=== PATIENT | male | born 1940 | race Caucasian/White ===

== ENCOUNTER → 2019-10-22 07:48 | Outpatient (BNVA) | payer MEDICARE, OTHER, SELFPAY | PROVIDERS: Family Provider Family Medicine; PCP Family Medicine; Referring Provider Family Medicine; Visit Provider Specialist | DX: R20.0 Anesthesia of skin (principal); R20.2 Paresthesia of skin; G62.9 Polyneuropathy, unspecified; Z87.891 Personal history of nicotine dependence | CPT/HCPCS: 95909 ==

== ENCOUNTER 2020-02-17 14:14 | Emergency (ER) | payer MEDICARE, OTHER, SELFPAY ==
[2020-02-17 14:25] VITALS: BP 114/61; PULSE 69; RESP 18; TEMP 36.7; O2SAT 95; BMI 22.0
--- NOTE | 2020-02-17 14:41 | XRR_ITS ---
PROCEDURE INFORMATION: Exam: XR Chest, 1 View Exam date and time: 02/17/2020 2:54 PM Age: 79 years old Clinical indication: Shortness of breath; Type not specified; Patient HX: Weakness, dizzy, chest pain; Additional info: SOB TECHNIQUE: Imaging protocol: XR of the chest Views: 1 view. COMPARISON: CR Chest 1 [place] [id number] 11/13/2018 12:43 PM FINDINGS: Lungs: Unremarkable. No consolidation. Pleural space: Unremarkable. No pleural effusion. No pneumothorax. Heart/Mediastinum: Unremarkable. No cardiomegaly. Bones/joints: Unremarkable. XR/XR chest 1V portable [id number] IMPRESSION: No acute findings.
--- NOTE | 2020-02-17 14:41 | CT_ITS ---
WS: [id number] CT HEAD TECHNIQUE: Noncontrast CT of the head obtained from the skullbase to the vertex. CLINICAL INFORMATION: sob COMPARISON: 5 28,019 DLP: 854.[address] scans at [facility] use at least one of these dose optimization techniques: automat ed exposure control; mA and/or kV adjustment per patient size (includes targeted exams where dose is matched to clinical indication); or iterative reconstruction. FINDINGS: No evidence of intracranial hemorrhage or mass effect. Ventricular system and basal cisterns are mays nt. Mild small vessel changes with moderate parenchymal volume loss. No extra-axial fluid collections . No evidence of mass or mass effect. Normal infante-white differentiation. Paranasal sinuses and mastoid air cells are well aerated. .Normal visualized soft tissues. CT/CT head wo con* [id number] IMPRESSION: 1. No evidence of intracranial hemorrhage or mass effect. 2. Mild small vessel changes. Moderate parenchymal volume loss. 3. No acute intracranial findings.
--- NOTE | 2020-02-17 14:42 | ECG_ITS ---
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 Measurements Intervals [place] Rate: 65 P: 73 RI: 199 QRS: 45 QRSD: 107 T: 67 QT: 457 QTc: 477 Interpretive Statements SINUS RHYTHM ST DEVIATION AND MODERATE T-WAVE ABNORMALITY, CONSIDER LATERAL ISCHEMIA [-0.1+ mV T WAVE IN I/aVL/V5/V6] Compared to ECG 11/13/2018 12:40:03 No significant changes Electronically Signed On 02-17-2020 22:23:40 RAIL BONDER by Ce Huerta M.D. [email or web address]/OM/[id number]
--- NOTE | 2020-02-17 14:58 | ED_ITS ---
HPI - Weakness General: Chief complaint: Weakness Stated complaint: passing out/weakness/slight confusion Time Seen by Provider: 02/17/20 14:35 Source: patient Mode of arrival: ambulatory Limitations: no limitations History of Present Illness: HPI Narrative: 79-year-old male states he is at the store today started to feel lightheaded diaphoretic. He felt like he was going to pass out but did not. He states he got in his car and went to his PCP who sent him here. He states that he now feels improved and has no complaints. He denies any headache or chest pain before or after the event. He denies passing out. Denies any vomiting or diarrhea. He states it was improved by sitting. Associated symptoms: Denies chills, dysuria, easy bruising, fever(s), nausea or vomiting Review of Systems Const: Denies: fever(s), chills, body aches or change in appetite Eyes: Denies: blurry vision or eye discomfort ENMT: Denies: throat pain or dental pain Card: Reports: pre-syncope Resp: Denies: dyspnea GI: Denies: abdominal pain, nausea, vomiting or diarrhea : Denies: dysuria Musc: Denies: neck pain or back pain Skin/Breast: Denies: rash Neuro: Reports: weakness in extremities Psych: Denies: depression Ever/Lymph: Denies: easy bruising All/Imm: Denies: urticaria PFSH ED PFSH: Medical History (Updated 02/17/20 @ 18:31 by Serenity Sierra MD) Anticoagulation adequate with anticoagulant therapy Atrial fibrillation CAD (coronary artery disease) Chronic kidney disease (CKD) Dyslipidemia Essential hypertension Sleep apnea TIA (transient ischemic attack) Surgical History History of neck surgery History of shoulder surgery History of surgery on wrist Family History Other Diabetes Denies family history of Cancer Social History Smoking and tobacco status: former smoker Alcohol intake: never Household members: spouse Marital status: Current occupational status: retired Physical Exam Const: COMMON NORMALS: no acute distress, patient oriented x3 and healthy appearing HENMT: COMMON NORMALS: normocephalic and atraumatic HEAD & SCALP: normocephalic and atraumatic Eye: COMMON NORMALS: Equal, round and reactive pupils present and EOMs intact bilaterally PUPIL: Yes Equal, round and reactive pupils present Neck/C-Spine: COMMON NORMALS: full ROM and supple Chest: COMMONS NORMALS: normal inspection of the chest and normal palpation of entire chest wall Resp: COMMON NORMALS: normal respiratory effort, No retractions, No use of accessory muscles and clear to auscultation bilaterally AUSCULTATION: clear to auscultation bilaterally Cardio: COMMON NORMALS: regular rate, regular rhythm and No murmurs present (Cardio) RATE: regular rate RHYTHM: regular rhythm GI: COMMON NORMALS: Normal to inspection, nondistended, normoactive bowel sounds present, Soft to palpation, non-tender and no masses PALPATION: Yes Soft to palpation Extremity: COMMON NORMALS: normal to inspection and full ROM Neuro: COMMON NORMALS: patient oriented x3, moves all extremities and no focal motor deficits Psych: COMMON NORMALS: mental status grossly normal, Normal thought process present and cooperative THOUGHT PROCESS: Normal thought process present Skin: COMMON NORMALS: no rashes or lesions noted and no wounds GENERAL SKIN EXAM: no rashes or lesions noted Course Vital Signs: Vital signs: Vital Signs Temperature 98.0 F 02/17/20 14:25 Pulse Rate 66 02/17/20 18:43 Respiratory Rate 16 02/17/20 18:43 Blood Pressure 142/75 02/17/20 18:43 Pulse Oximetry 94 02/17/20 18:43 MDM - Weakness MDM Narrative: Medical decision making narrative: Patient presents here with a near syncopal event is likely vasovagal. He has felt much improved here and his blood pressures here been stable. Initial repeat troponins are negative and he has no signs of pulmonary embolism. His EKGs are normal. He is stable for discharge and is to follow-up his PCP as scheduled next week and return if worsening. Lab Data: Labs: Lab Results 02/17/20 02/17/20 02/17/20 Range/Units 15:07 15:07 15:07 WBC 9.0 (4.0-10.0) 10^3/ uL RBC 4.40 (4.1-5.3) 10^6/u L Hgb 13.4 (11.7-16.6) g/dL Hct 41.4 L (42.0-52.0) % MCV 94.1 H (80-94) fL MCH 30.5 (28.0-34.0) pg MCHC 32.4 (30.0-36.0) g/dL RDW 13.9 (12.1-15.1) % Plt Count 212 (130-400) 10^3/c mm MPV 10.6 H (7.4-10.4) fL Neut % (Auto) 73.1 % Lymph % (Auto) 14.2 % [place] % (Auto) 9.1 % Eos % (Auto) 2.6 % Baso % (Auto) 0.4 % Neut # (Auto) 6.58 (1.8-7.7) 10^3/u L Lymph # (Auto) 1.3 (0.8-4.8) 10^3/u L [place] # (Auto) 0.8 (0.2-0.9) 10^3/u L Eos # (Auto) 0.2 (0.0-0.8) 10^3/u L Baso # (Auto) 0.0 (0.0-0.1) 10^3/u L Nucleated RBC % (a uto) 0 % Nucleated RBCs # 0.0 /100WBC Sodium 140 (136-145) mmol/L Potassium 3.7 (3.5-5.1) mmol/L Chloride 104 (98-107) mmol/L Carbon Dioxide 28 (22-29) mmol/L Anion Gap 11.7 (5-19) BUN 28 H (8-23) mg/dL Creatinine 1.8 H (0.7-1.2) mg/dL GFR Calculation Not Reportable Glucose 89 (65-115) mg/dL Calculated Osmolal ity 295 (285-295) mOsm/k g Calcium 9.2 (8.5-10.5) mg/dL Total Bilirubin 0.6 (0.15-1.2) mg/dL AST 21 (0-40) U/L ALT 19 (0-41) U/L Alkaline Phosphata se 94 (40-130) IU/L Troponin T Baselin e 16 H (0-15) ng/L Troponin T 120 Min [place] (0-15) ng/L Delta Troponin T (0-10) ABS# Total Protein 7.7 (6.6-8.7) g/dL Albumin 4.3 (3.5-5.2) g/dL Globulin 3.4 (1.3-4.6) g/dL 02/17/20 Range/Units 17:05 WBC (4.0-10.0) 10^3/ uL RBC (4.1-5.3) 10^6/u L Hgb (11.7-16.6) g/dL Hct (42.0-52.0) % MCV (80-94) fL MCH (28.0-34.0) pg MCHC (30.0-36.0) g/dL RDW (12.1-15.1) % Plt Count (130-400) 10^3/c mm MPV (7.4-10.4) fL Neut % (Auto) % Lymph % (Auto) % [place] % (Auto) % Eos % (Auto) % Baso % (Auto) % Neut # (Auto) (1.8-7.7) 10^3/u L Lymph # (Auto) (0.8-4.8) 10^3/u L [place] # (Auto) (0.2-0.9) 10^3/u L Eos # (Auto) (0.0-0.8) 10^3/u L Baso # (Auto) (0.0-0.1) 10^3/u L Nucleated RBC % (a uto) % Nucleated RBCs # /100WBC Sodium (136-145) mmol/L Potassium (3.5-5.1) mmol/L Chloride (98-107) mmol/L Carbon Dioxide (22-29) mmol/L Anion Gap (5-19) BUN (8-23) mg/dL Creatinine (0.7-1.2) mg/dL GFR Calculation Glucose (65-115) mg/dL Calculated Osmolal ity (285-295) mOsm/k g Calcium (8.5-10.5) mg/dL Total Bilirubin (0.15-1.2) mg/dL AST (0-40) U/L ALT (0-41) U/L Alkaline Phosphata se (40-130) IU/L Troponin T Baselin e (0-15) ng/L Troponin T 120 Min [place] 13.75 (0-15) ng/L Delta Troponin T -2.25 L (0-10) ABS# Total Protein (6.6-8.7) g/dL Albumin (3.5-5.2) g/dL Globulin (1.3-4.6) g/dL Imaging Data^: CT Head: Radiologist's impression: [address] [place] [address] CT Scan Report Signed Patient: Isaac Blanco Unit #: [id number] : 1940 Age/Sex: 79 / M ADM Date: 02/17/20 Loc: ER Room/Bed: Attending Dr: Ordering Provider/Ordering MD: Serenity Sierra MD Date of Service: 02/17/20 Procedure(s): CT head wo con* [id number] Accession Number(s): [id number] Report Number: [id number] WS: [id number] CT HEAD TECHNIQUE: Noncontrast CT of the head obtained from the skullbase to the vertex. CLINICAL INFORMATION: sob COMPARISON: 5 28,019 DLP: 854.[address] scans at [facility] use at least one of these dose optimization techniques: automated exposure control; mA and/or kV adjustment per patient size (includes targeted exams where dose is matched to clinical indication); or iterative reconstruction. FINDINGS: No evidence of intracranial hemorrhage or mass effect. Ventricular system and basal cisterns are patent. Mild small vessel changes with moderate parenchymal volume loss. No extra-axial fluid collections. No evidence of mass or mass effect. Normal infante-white differentiation. Paranasal sinuses and mastoid air cells are well aerated. .Normal visualized soft tissues. CT/CT head wo con* [id number] IMPRESSION: 1. No evidence of intracranial hemorrhage or mass effect. 2. Mild small vessel changes. Moderate parenchymal volume loss. 3. No acute intracranial findings. CXR: Radiologist's impression: [place] [address] [address] XRay Report Signed Patient: Isaac Blanco Unit #: [id number] : 1940 Age/Sex: 79 / M ADM Date: 02/17/20 Loc: ER Room/Bed: Attending Dr: Ordering Provider/Ordering MD: Serenity Sierra MD Date of Service: 02/17/20 Procedure(s): XR chest 1V portable [id number] Accession Number(s): [id number] Report Number: [id number] PROCEDURE INFORMATION: Exam: XR Chest, 1 View Exam date and time: 02/17/2020 2:54 PM Age: 79 years old Clinical indication: Shortness of breath; Type not specified; Patient HX: Weakness, dizzy, chest pain; Additional info: SOB TECHNIQUE: Imaging protocol: XR of the chest Views: 1 view. COMPARISON: CR Chest 1 [place] [id number] 11/13/2018 12:43 PM FINDINGS: Lungs: Unremarkable. No consolidation. Pleural space: Unremarkable. No pleural effusion. No pneumothorax. Heart/Mediastinum: Unremarkable. No cardiomegaly. Bones/joints: Unremarkable. XR/XR chest 1V portable [id number] IMPRESSION: No acute findings. EKG Data^: EKG 1: Attestation: I personally reviewed and interpreted this EKG as follows: EKG interpretation date: 02/17/20 EKG interpretation time: 15:09 Interpretation: nsr hr [address] or t wave abnormalities qrs 107 qtc 469 EKG 2: Attestation: I personally reviewed and interpreted this EKG as follows: EKG interpretation date: 02/17/20 EKG interpretation time: 17:01 Interpretation: nsr hr [address] or t wave abnormalities qrs 110 qtc 441 Discharge Plan Discharge Patient Disposition: Home Clinical Impression: Near syncope Condition: Stable Prescriptions: No Action pantoprazole 40 mg tablet,delayed release (DR/EC) 40 mg PO BID RF: 0 amiodarone 200 mg tablet 200 mg PO DAILY RF: 0 isosorbide mononitrate 60 mg tablet extended release 24 hr 60 mg PO DAILY RF: 0 Eliquis 5 mg tablet 2.5 mg PO BID RF: 0 aspirin [Aspir-81] 81 mg tablet,delayed release (DR/EC) 81 mg PO DAILY RF: 0 saw palmetto 450 mg capsule 450 mg PO BID RF: 0 verapamil 40 mg tablet 40 mg PO DAILY Qty: 90 RF: 0 amlodipine 5 mg tablet 5 mg PO DAILY Qty: 90 RF: 3 Multi-Vitamin Tablet 1 tab PO DAILY RF: 0 atorvastatin 40 mg tablet 40 mg PO DAILY RF: 0 acetaminophen 500 mg Tablet 500 mg PO DAILY RF: 0 magnesium 250 mg Tablet 250 mg PO DAILY RF: 0 vitamin B complex 1 tab PO DAILY RF: 0 nitroglycerin 0.4 mg tablet, sublingual 0.4 mg sublingual Q5M PRN (Reason: chest pains) RF: 0 Discharge Orders: Discharge ED (Routine); Ordered 02/17/20 Ordered By: Serenity Sierra Referrals: Nikita Mosher MD [Primary Care Provider] - 1-3 days Discharge Diet: Advance as tolerated Discharge Activity: Resume usual activity Patient Instructions: Near Syncope (ED) Coding Level of Care Code ED Flat Knitter for Femig Fwd Exam Comprehensive
[2020-02-17 15:11] VITALS: BP 105/59; PULSE 65; RESP 15; O2SAT 95
[2020-02-17 15:27] LABS: Basophils % 0.4 %; Eosinophils # 0.2 10^3/uL (0.0-0.8); Eosinophils % 2.6 %; Hematocrit 41.4 % (42.0-52.0); Hemoglobin 13.4 g/dL (11.7-16.6); Lymphocytes # 1.3 10^3/uL (0.8-4.8); Lymphocytes % 14.2 %; Mean Corpuscular HGB Conc 32.4 g/dL (30.0-36.0); Mean Corpuscular Hemoglobin 30.5 pg (28.0-34.0); Mean Corpuscular Volume 94.1 fL (80-94); Mean Platelet Volume 10.6 fL (7.4-10.4); Monocytes # 0.8 10^3/uL (0.2-0.9); Monocytes % 9.1 %; Neutrophils # 6.58 10^3/uL (1.8-7.7); Neutrophils % 73.1 %; Nucleated Red Blood Cells % 0 %; Platelet Count 212 10^3/cmm (130-400); Red Cell Distribution Width 13.9 % (12.1-15.1)
[2020-02-17 15:45] LABS: Alanine Aminotransferase 19 U/L (0-41); Albumin Level 4.3 g/dL (3.5-5.2); Alkaline Phosphatase 94 IU/L (40-130); Anion Gap 11.7 (5-19); Aspartate Amino Transferase 21 U/L (0-40); Blood Urea Nitrogen 28 mg/dL (8-23); Calcium 9.2 mg/dL (8.5-10.5); Carbon Dioxide 28 mmol/L (22-29); Chloride 104 mmol/L (98-107); Globulin 3.4 g/dL (1.3-4.6); Glucose 89 mg/dL (65-115); Osmolality Calculated 295 mOsm/kg (285-295); Potassium 3.7 mmol/L (3.5-5.1); Sodium 140 mmol/L (136-145); Total Bilirubin 0.6 mg/dL (0.15-1.2); Total Protein 7.7 g/dL (6.6-8.7)
[2020-02-17 15:46] LABS: Troponin(5th) Baseline 16 ng/L (0-15)
[2020-02-17] MEDS: sodium chloride 0.9% 1,000 ML 999 ML IV (16:18)
[2020-02-17 16:32] VITALS: BP 137/62; O2SAT 96
--- NOTE | 2020-02-17 16:42 | ECG_ITS ---
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 Measurements Intervals [place] Rate: 62 P: 66 WV: 200 QRS: 39 QRSD: 110 T: -12 QT: 436 QTc: 444 Interpretive Statements SINUS RHYTHM ST DEVIATION AND MODERATE T-WAVE ABNORMALITY, CONSIDER LATERAL ISCHEMIA [-0.1+ mV T WAVE IN I/aVL/V5/V6] Compared to ECG 02/17/2020 15:09:19 No significant changes Electronically Signed On 02-17-2020 22:28:20 BISTRO SERVER by Ce Huerta M.D. [email or web address] [email or web address].[email or web address]/store/OM/[id number]
[2020-02-17 18:18] LABS: Troponin 5 2HR 13.75 ng/L (0-15)
[2020-02-17 18:27] LABS: Troponin 5 2HR Delta -2.25 ABS# (0-10)
[2020-02-17 18:43] VITALS: BP 142/75; PULSE 66; RESP 16; O2SAT 94
== END 2020-02-17 18:45 | disposition home or self-care (01) ==
PROVIDERS: Emergency Provider Emergency Medicine; PCP Family Medicine
DX: R55 Syncope and collapse (principal); Z79.01 Long term (current) use of anticoagulants; Z79.82 Long term (current) use of aspirin; I48.91 Unspecified atrial fibrillation; I25.10 Atherosclerotic heart disease of native coronary artery without angina pectoris; E78.5 Hyperlipidemia, unspecified; I10 Essential (primary) hypertension; Z86.73 Personal history of transient ischemic attack (TIA), and cerebral infarction without residual deficits; Z87.891 Personal history of nicotine dependence
CPT/HCPCS: 12345; 70450; 71045; 80053; 84484; 85025; 93005; 96360; 99282; 99283; J7030

== ENCOUNTER 2020-03-12 02:44 | Emergency (ER) | payer MEDICARE, OTHER, SELFPAY ==
[2020-03-12 02:47] VITALS: BP 183/91; PULSE 89; RESP 18; TEMP 36.8; O2SAT 95; BMI 22.0
--- NOTE | 2020-03-12 02:53 | XRR_ITS ---
PROCEDURE INFORMATION: Exam: XR Chest, 1 View Exam date and time: 03/12/2020 2:58 AM Age: 79 years old Clinical indication: Chest pain; Additional info: Cp TECHNIQUE: Imaging protocol: XR of the chest Views: 1 view. COMPARISON: CR XR chest 1V portable [id number] 02/17/2020 2:43 PM FINDINGS: Lungs: There is a background of emphysema. Pleural space: Unremarkable. No pleural effusion. No pneumothorax. Heart/Mediastinum: Unremarkable. No cardiomegaly. Bones/joints: Unremarkable. XR/XR chest 1V portable [id number] IMPRESSION: There are no acute chest findings. Stable appearance of the chest compared with 02/17/2020.
--- NOTE | 2020-03-12 02:53 | ECG_ITS ---
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 Measurements Intervals [place] Rate: 89 P: 66 AR: 188 QRS: 31 QRSD: 128 T: 84 QT: 372 QTc: 453 Interpretive Statements SINUS RHYTHM POSSIBLE LEFT ATRIAL ENLARGEMENT [-0.1mV P WAVE IN V1/V2] MODERATE INTRAVENTRICULAR CONDUCTION DELAY [110+ ms QRS DURATION] NONSPECIFIC ST & T-WAVE ABNORMALITY Compared to ECG 02/17/2020 17:01:24 Intraventricular conduction delay now present Possible ischemia no longer present T-wave abnormality still present Electronically Signed On 03-12-2020 17:52:36 CURING BIN OPERATOR by Garcia Chaparro M.D. [id number]
--- NOTE | 2020-03-12 03:04 | W.ED.CHESTPA ---
HPI - Chest Pain General: Chief Complaint: Chest Pain Stated Complaint: cp Time Seen by Provider: 03/12/20 02:52 Source: patient Mode of arrival: ambulatory Limitations: no limitations History of Present Illness: HPI narrative: 79-year-old male states he woke up this morning at midnight with chest pain. He states his pain was improved with nitro but the start of pain again roughly an hour ago took another nitro. He denies any pain currently. He has had some dyspnea with his pain. Denies any fever. He denies any worsening improving factors. Associated symptoms: Deny abdominal pain, dyspnea, fever(s), nausea or vomiting Review of Systems Const: Denies: fever(s), chills, body aches or change in appetite Eyes: Denies: blurry vision or eye discomfort ENMT: Denies: throat pain or dental pain Card: Reports: chest pain Resp: Denies: dyspnea GI: Denies: abdominal pain, nausea, vomiting or diarrhea : Denies: dysuria Musc: Denies: neck pain or back pain Skin/Breast: Denies: rash Neuro: Denies: headache(s) Psych: Denies: depression Ever/Lymph: Denies: easy bruising All/Imm: Denies: urticaria PFSH ED PFSH: Medical History (Updated 03/12/20 @ 05:42 by Serenity Sierra MD) Anticoagulation adequate with anticoagulant therapy Atrial fibrillation CAD (coronary artery disease) Chronic kidney disease (CKD) Dyslipidemia Essential hypertension Sleep apnea TIA (transient ischemic attack) Surgical History History of neck surgery History of shoulder surgery History of surgery on wrist Family History Other Diabetes Denies family history of Cancer Social History Smoking and tobacco status: former smoker Alcohol intake: never Household members: spouse Marital status: Current occupational status: retired Physical Exam Const: COMMON NORMALS: no acute distress, patient oriented x3 and healthy appearing HENMT: COMMON NORMALS: normocephalic and atraumatic HEAD & SCALP: normocephalic and atraumatic Eye: COMMON NORMALS: Equal, round and reactive pupils present and EOMs intact bilaterally PUPIL: Yes Equal, round and reactive pupils present Neck/C-Spine: COMMON NORMALS: full ROM and supple Chest: COMMONS NORMALS: normal inspection of the chest and normal palpation of entire chest wall Resp: COMMON NORMALS: normal respiratory effort, No retractions, No use of accessory muscles and clear to auscultation bilaterally AUSCULTATION: clear to auscultation bilaterally Cardio: COMMON NORMALS: regular rate, regular rhythm and No murmurs present (Cardio) RATE: regular rate RHYTHM: regular rhythm GI: COMMON NORMALS: Normal to inspection, nondistended, normoactive bowel sounds present, Soft to palpation, non-tender and no masses PALPATION: Yes Soft to palpation Extremity: COMMON NORMALS: normal to inspection and full ROM Neuro: COMMON NORMALS: patient oriented x3, moves all extremities and no focal motor deficits Psych: COMMON NORMALS: mental status grossly normal, Normal thought process present and cooperative THOUGHT PROCESS: Normal thought process present Skin: COMMON NORMALS: no rashes or lesions noted and no wounds GENERAL SKIN EXAM: no rashes or lesions noted Course Vital Signs: Vital signs: Vital Signs Temperature 98.2 F 03/12/20 02:47 Pulse Rate 77 03/12/20 05:54 Respiratory Rate 18 03/12/20 05:54 Blood Pressure 139/83 03/12/20 05:54 Pulse Oximetry 95 03/12/20 05:54 MDM - Chest Pain MDM Narrative: Medical decision making narrative: Isaac presents here with some chest pain. Patient's initial repeat troponins here are negative. His EKGs are normal as well. CT showed a possible pneumonia. Does have an elevated white count but he has been on steroids as well. We will place him on doxycycline. He has been pain-free here and I feel he is stable for discharge. He is to follow-up with his PCP in 2 to 4 days and return if worsening. He is to return if he has any pain at all. He understands and agrees this plan. Lab Data: Labs: Lab Results 03/12/20 03/12/20 03/12/20 Range/Units 03:20 03:20 03:20 WBC 19.5 H (4.0-10.0) 10^3/ uL RBC 4.43 (4.1-5.3) 10^6/u L Hgb 13.8 (11.7-16.6) g/dL Hct 41.0 L (42.0-52.0) % MCV 92.6 (80-94) fL MCH 31.2 (28.0-34.0) pg MCHC 33.7 (30.0-36.0) g/dL RDW 14.1 (12.1-15.1) % Plt Count 224 (130-400) 10^3/c mm MPV 10.3 (7.4-10.4) fL Neut % (Auto) 91.0 % Lymph % (Auto) 4.1 % [place] % (Auto) 4.1 % Eos % (Auto) 0.1 % Baso % (Auto) 0.1 % Neut # (Auto) 17.71 H (1.8-7.7) 10^3/u L Lymph # (Auto) 0.8 (0.8-4.8) 10^3/u L [place] # (Auto) 0.8 (0.2-0.9) 10^3/u L Eos # (Auto) 0.0 (0.0-0.8) 10^3/u L Baso # (Auto) 0.0 (0.0-0.1) 10^3/u L Nucleated RBC % (a uto) 0 % Nucleated RBCs # 0.0 /100WBC PT 15.40 H (12.1-14.9) SECO NDS INR 1.18 (0.8-1.2) D-Dimer 1.16 H (0-0.59) ug/mIFE U Sodium 136 (136-145) mmol/L Potassium 3.9 (3.5-5.1) mmol/L Chloride 101 (98-107) mmol/L Carbon Dioxide 24 (22-29) mmol/L Anion Gap 14.9 (5-19) BUN 30 H (8-23) mg/dL Creatinine 1.5 H (0.7-1.2) mg/dL GFR Calculation Not Reportable Glucose 135 H (65-115) mg/dL Calculated Osmolal ity 290 (285-295) mOsm/k g Calcium 9.2 (8.5-10.5) mg/dL Total Bilirubin 0.4 (0.15-1.2) mg/dL AST 20 (0-40) U/L ALT 18 (0-41) U/L Alkaline Phosphata se 89 (40-130) IU/L Troponin T Baselin e (0-15) ng/L Troponin T 120 Min [place] (0-15) ng/L Delta Troponin T (0-10) ABS# NT-Pro-B Natriuret Pep 1434 H (0-450) pg/mL Total Protein 8.1 (6.6-8.7) g/dL Albumin 4.3 (3.5-5.2) g/dL Globulin 3.8 (1.3-4.6) g/dL 03/12/20 03/12/20 Range/Units 03:20 05:09 WBC (4.0-10.0) 10^3/ uL RBC (4.1-5.3) 10^6/u L Hgb (11.7-16.6) g/dL Hct (42.0-52.0) % MCV (80-94) fL MCH (28.0-34.0) pg MCHC (30.0-36.0) g/dL RDW (12.1-15.1) % Plt Count (130-400) 10^3/c mm MPV (7.4-10.4) fL Neut % (Auto) % Lymph % (Auto) % [place] % (Auto) % Eos % (Auto) % Baso % (Auto) % Neut # (Auto) (1.8-7.7) 10^3/u L Lymph # (Auto) (0.8-4.8) 10^3/u L [place] # (Auto) (0.2-0.9) 10^3/u L Eos # (Auto) (0.0-0.8) 10^3/u L Baso # (Auto) (0.0-0.1) 10^3/u L Nucleated RBC % (a uto) % Nucleated RBCs # /100WBC PT (12.1-14.9) SECO NDS INR (0.8-1.2) D-Dimer (0-0.59) ug/mIFE U Sodium (136-145) mmol/L Potassium (3.5-5.1) mmol/L Chloride (98-107) mmol/L Carbon Dioxide (22-29) mmol/L Anion Gap (5-19) BUN (8-23) mg/dL Creatinine (0.7-1.2) mg/dL GFR Calculation Glucose (65-115) mg/dL Calculated Osmolal ity (285-295) mOsm/k g Calcium (8.5-10.5) mg/dL Total Bilirubin (0.15-1.2) mg/dL AST (0-40) U/L ALT (0-41) U/L Alkaline Phosphata se (40-130) IU/L Troponin T Baselin e 13 (0-15) ng/L Troponin T 120 Min [place] 16.04 H (0-15) ng/L Delta Troponin T 3.04 (0-10) ABS# NT-Pro-B Natriuret Pep (0-450) pg/mL Total Protein (6.6-8.7) g/dL Albumin (3.5-5.2) g/dL Globulin (1.3-4.6) g/dL Imaging Data^: CXR: My impression: no acute abnormality CT Chest: Attestation: I personally reviewed and interpreted this imaging study as follows: Radiologist's impression: [address] [address] [address] Scan Report Signed Patient: Isaac Blanco Unit #: [id number] : 1940 Age/Sex: 79 / M ADM Date: 03/12/20 Loc: ER Room/Bed: Attending Dr: Ordering Provider/Ordering MD: Serenity Sierra MD Date of Service: 03/12/20 Procedure(s): CT angio chest PE protcl [id number] Accession Number(s): [id number] Report Number: [id number] PROCEDURE INFORMATION: Exam: CT Angiography Chest With Contrast Exam date and time: 03/12/2020 3:52 AM Age: 79 years old Clinical indication: Chest pain; Additional info: Cp TECHNIQUE: Imaging protocol: Computed tomographic angiography of the chest with intravenous contrast. 3D rendering (Not supervised by radiologist): MIP and/or 3D reconstructed images were created by the technologist. Radiation optimization: All CT scans at this facility use at least one of these dose optimization techniques: automated exposure control; mA and/or kV adjustment per patient size (includes targeted exams where dose is matched to clinical indication); or iterative reconstruction. Contrast material: VISI 320; Contrast volume: 70 ml; Contrast route: INTRAVENOUS (IV); COMPARISON: CTA Chest-Pulmonary Emb [id number] 03/26/2018 5:27 PM RADIATION DOSE METRICS: Total DLP (mGy-cm): 545.97 FINDINGS: Pulmonary arteries: Normal. No pulmonary emboli. Aorta: Calcifications are present within the thoracic aorta. 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 Calcifications are seen within branches of the celiac and superior mesenteric arteries. Calcifications are seen at the origins of the renal arteries bilaterally. Lungs: There are ground-glass opacities present in the right upper lobe adjacent to the major fissure, within the right middle lobe and within the right lower lobe as well. This could represent mild asymmetric pulmonary edema although a right interstitial pneumonitis cannot be excluded. Pleural space: Unremarkable. No pneumothorax. No pleural effusion. Heart: Calcifications are seen within the coronary arteries. Lymph nodes: Unremarkable. No enlarged lymph nodes. Liver: The liver appears somewhat hyperdense. Hemochromatosis could have this appearance. Spleen: Punctate calcifications are seen within the spleen compatible with calcified granulomas. Bones/joints: Unremarkable. No acute fracture. Soft tissues: Unremarkable. CT/CT angio chest PE protcl [id number] IMPRESSION: 1. There is no evidence for pulmonary emboli. 2. Ground-glass opacity seen in the right hemithorax could represent mild asymmetric pulmonary edema although a right interstitial pneumonitis cannot be excluded. 3. Hyperdense appearing liver. Hemochromatosis could have this appearance. 4. 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 EKG Data^: EKG 1: Attestation: I personally reviewed and interpreted this EKG as follows: EKG interpretation date: 03/12/20 EKG interpretation time: 02:50 Interpretation: nsr hr [address] or t wave abnormalities qrs 128 qtc 418 EKG 2: Attestation: I personally reviewed and interpreted this EKG as follows: EKG interpretation date: 03/12/20 EKG interpretation time: 04:34 Interpretation: Sinus rhythm heart rate [address] or T wave abnormalities QRS 116 QTC 460 Discharge Plan Discharge Patient Disposition: Home Clinical Impression: Chest pain Qualifiers: Chest pain type: unspecified Qualified Code(s): R07.9 - Chest pain, unspecified Pneumonia Qualifiers: Pneumonia type: due to unspecified organism Condition: Stable Prescriptions: New doxycycline hyclate 100 mg capsule 100 mg PO BID 10 Days Qty: 20 RF: 0 No Action pantoprazole 40 mg tablet,delayed release (DR/EC) 40 mg PO BID RF: 0 amiodarone 200 mg tablet 200 mg PO DAILY RF: 0 isosorbide mononitrate 60 mg tablet extended release 24 hr 60 mg PO DAILY RF: 0 Eliquis 5 mg tablet 2.5 mg PO BID RF: 0 aspirin [Aspir-81] 81 mg tablet,delayed release (DR/EC) 81 mg PO DAILY RF: 0 saw palmetto 450 mg capsule 450 mg PO BID RF: 0 amlodipine 5 mg tablet 2.5 mg PO DAILY RF: 0 verapamil 40 mg tablet 40 mg PO DAILY Qty: 90 RF: 0 Multi-Vitamin Tablet 1 tab PO DAILY RF: 0 atorvastatin 40 mg tablet 40 mg PO DAILY RF: 0 acetaminophen 500 mg Tablet 500 mg PO DAILY RF: 0 magnesium 250 mg Tablet 250 mg PO DAILY RF: 0 vitamin B complex 1 tab PO DAILY RF: 0 nitroglycerin 0.4 mg tablet, sublingual 0.4 mg sublingual Q5M PRN (Reason: chest pains) RF: 0 Discharge Orders: Discharge ED (Routine); Ordered 03/12/20 Ordered By: Serenity Sierra Referrals: Nikita Mosher MD [Primary Care Provider] - 1-3 days Discharge Diet: Advance as tolerated Discharge Activity: Resume usual activity Patient Instructions: Chest Pain (ED), Pneumonia (ED) Coding Level of Care Code ED Pipe Foreman for Eleazar Fwd Exam Comprehensive
[2020-03-12 03:30] VITALS: BP 178/84; PULSE 73; RESP 17; O2SAT 94
[2020-03-12 03:31] LABS: Basophils % 0.1 %; Eosinophils % 0.1 %; Hemoglobin 13.8 g/dL (11.7-16.6); Lymphocytes # 0.8 10^3/uL (0.8-4.8); Lymphocytes % 4.1 %; Mean Corpuscular HGB Conc 33.7 g/dL (30.0-36.0); Mean Corpuscular Hemoglobin 31.2 pg (28.0-34.0); Mean Corpuscular Volume 92.6 fL (80-94); Mean Platelet Volume 10.3 fL (7.4-10.4); Monocytes # 0.8 10^3/uL (0.2-0.9); Monocytes % 4.1 %; Neutrophils # 17.71 10^3/uL (1.8-7.7); Nucleated Red Blood Cells % 0 %; Platelet Count 224 10^3/cmm (130-400); Red Blood Count 4.43 10^6/uL (4.1-5.3); Red Cell Distribution Width 14.1 % (12.1-15.1); White Blood Count 19.5 10^3/uL (4.0-10.0)
[2020-03-12 03:49] LABS: Troponin(5th) Baseline 13 ng/L (0-15)
--- NOTE | 2020-03-12 03:50 | CTR_ITS ---
PROCEDURE INFORMATION: Exam: CT Angiography Chest With Contrast Exam date and time: 03/12/2020 3:52 AM Age: 79 years old Clinical indication: Chest pain; Additional info: Cp TECHNIQUE: Imaging protocol: Computed tomographic angiography of the chest with intravenous contrast. 3D rendering (Not supervised by radiologist): MIP and/or 3D reconstructed images were created by the technologist. Radiation optimization: All CT scans at this facility use at least one of these dose optimization techniques: automated exposure control; mA and/or kV adjustment per patient size (includes targeted exams where dose is matched to clinical indication); or iterative reconstruction. Contrast material: VISI 320; Contrast volume: 70 ml; Contrast route: INTRAVENOUS (IV); COMPARISON: CTA Chest-Pulmonary Emb [id number] 03/26/2018 5:27 PM RADIATION DOSE METRICS: Total DLP (mGy-cm): 545.97 FINDINGS: Pulmonary arteries: Normal. No pulmonary emboli. Aorta: Calcifications are present within the thoracic aorta. 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 Calcifications are seen within branches of the celiac and superior mesenteric arteries. Calcifications are seen at the origins of the renal arteries bilaterally. Lungs: There are ground-glass opacities present in the right upper lobe adjacent to the major fissure, within the right middle lobe and within the right lower lobe as well. This could represent mild asymmetric pulmonary edema although a right interstitial pneumonitis cannot be excluded. Pleural space: Unremarkable. No pneumothorax. No pleural effusion. Heart: Calcifications are seen within the coronary arteries. Lymph nodes: Unremarkable. No enlarged lymph nodes. Liver: The liver appears somewhat hyperdense. Hemochromatosis could have this appearance. Spleen: Punctate calcifications are seen within the spleen compatible with calcified granulomas. Bones/joints: Unremarkable. No acute fracture. Soft tissues: Unremarkable. CT/CT angio chest PE protcl [id number] IMPRESSION: 1. There is no evidence for pulmonary emboli. 2. Ground-glass opacity seen in the right hemithorax could represent mild asymmetric pulmonary edema although a right interstitial pneumonitis cannot be excluded. 3. Hyperdense appearing liver. Hemochromatosis could have this appearance. 4. 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 Radiation Dose CTDIVOL = (mGy): DLP = 545.97 (mGy-cm)
[2020-03-12 03:58] LABS: Alanine Aminotransferase 18 U/L (0-41); Albumin Level 4.3 g/dL (3.5-5.2); Alkaline Phosphatase 89 IU/L (40-130); Anion Gap 14.9 (5-19); Aspartate Amino Transferase 20 U/L (0-40); Blood Urea Nitrogen 30 mg/dL (8-23); Calcium 9.2 mg/dL (8.5-10.5); Carbon Dioxide 24 mmol/L (22-29); Chloride 101 mmol/L (98-107); Globulin 3.8 g/dL (1.3-4.6); Glucose 135 mg/dL (65-115); NT Pro B Type Natriuretic Pept 1434 pg/mL (0-450); Osmolality Calculated 290 mOsm/kg (285-295); Potassium 3.9 mmol/L (3.5-5.1); Sodium 136 mmol/L (136-145); Total Bilirubin 0.4 mg/dL (0.15-1.2); Total Protein 8.1 g/dL (6.6-8.7)
[2020-03-12 04:02] VITALS: BP 139/67; PULSE 72; RESP 15; O2SAT 94
[2020-03-12 04:03] LABS: INR 1.18 (0.8-1.2)
[2020-03-12 04:06] LABS: D Dimer 1.16 ug/mIFEU (0-0.59)
[2020-03-12] MEDS: iodixanol 320 mg/mL 100mL Btl IV (04:33)
[2020-03-12 04:45] VITALS: RESP 18; O2SAT 97
[2020-03-12] MEDS: morphine 4 mg/mL SDV 1 mL IVP (04:45)
--- NOTE | 2020-03-12 04:45 | PC.NURSE ---
after CT, pt states CP 5/[address] notified, orders obtained for 4mg morphine IVP. pt states pain reduced to 2/10 after morphine adm
--- NOTE | 2020-03-12 04:53 | ECG_ITS ---
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 Measurements Intervals [place] Rate: 79 P: 65 DC: 201 QRS: 28 QRSD: 116 T: 30 QT: 426 QTc: 489 Interpretive Statements SINUS RHYTHM MODERATE INTRAVENTRICULAR CONDUCTION DELAY [110+ ms QRS DURATION] ST DEVIATION AND MODERATE T-WAVE ABNORMALITY, CONSIDER LATERAL ISCHEMIA [-0.1+ mV T WAVE IN I/aVL/V5/V6] Compared to ECG 03/12/2020 02:50:26 Possible ischemia now present T-wave abnormality still present Electronically Signed On 03-14-2020 11:12:23 SERVICE AND REPAIR SUPERVISOR by Garcia Chaparro M.D. [id number] f
[2020-03-12 05:05] VITALS: BP 139/83; PULSE 76; RESP 16; O2SAT 94
[2020-03-12 05:34] LABS: Troponin 5 2HR 16.04 ng/L (0-15); Troponin 5 2HR Delta 3.04 ABS# (0-10)
[2020-03-12] MEDS: doxycycline 100 mg Tablet PO (05:53)
[2020-03-12 05:54] VITALS: BP 139/83; PULSE 77; RESP 18; O2SAT 95
[2020-03-12 06:51] LABS: SARS Covid-2 Antigen Negative (Negative)
== END 2020-03-12 06:02 | disposition home or self-care (01) ==
PROVIDERS: Emergency Provider Emergency Medicine; PCP Family Medicine
DX: R07.9 Chest pain, unspecified (principal); J18.9 Pneumonia, unspecified organism; Z79.01 Long term (current) use of anticoagulants; Z79.82 Long term (current) use of aspirin; I48.91 Unspecified atrial fibrillation; I25.10 Atherosclerotic heart disease of native coronary artery without angina pectoris; E78.5 Hyperlipidemia, unspecified; I10 Essential (primary) hypertension; Z86.73 Personal history of transient ischemic attack (TIA), and cerebral infarction without residual deficits; Z87.891 Personal history of nicotine dependence
CPT/HCPCS: 12345; 71045; 71275; 80053; 83880; 84484; 85025; 85378; 85610; 87426; 93005; 96374; 99283; 99284; J2270; Q9967

== ENCOUNTER 2020-03-15 09:53 | Inpatient (IN) | payer MEDICARE, OTHER, SELFPAY ==
[2020-03-15] VITALS (7 sets, daily range): BP systolic 121–164; BP diastolic 61–86; PULSE 66–78; RESP 12–25; TEMP 36.5–36.6; O2SAT 95–97; BMI 22.0
--- NOTE | 2020-03-15 10:53 | XR_ITS ---
WS: [id number] Exam: XR chest 1V portable [id number] Date/Time of Exam: 03/15/2020 11:10 AM Reason For Exam: chest pain Comparison 03/12/2020. The lungs are clear and fully expanded. Normal cardiomediastinal structures and bony elements for garrett hnique. Monitoring leads superimpose the chest. XR/XR chest 1V portable [id number] IMPRESSION: 1. No acute cardiopulmonary finding.
--- NOTE | 2020-03-15 10:53 | ECG_ITS ---
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 Measurements Intervals [place] Rate: 75 P: 83 TX: 178 QRS: -2 QRSD: 106 T: 66 QT: 406 QTc: 454 Interpretive Statements SINUS RHYTHM LEFT VENTRICULAR HYPERTROPHY AND ST-T CHANGE [VOLTAGE CRITERIA PLUS ST/T ABNORMALITY] Compared to ECG 03/12/2020 04:34:26 Left ventricular hypertrophy now present ST (T wave) deviation now present Intraventricular conduction delay no longer present T-wave abnormality no longer present Possible ischemia no longer present Electronically Signed On 03-15-2020 13:04:57 ARCHITECTURAL PROJECT CAPTAIN by Garcia Chaparro M.D. [id number]
--- NOTE | 2020-03-15 10:56 | ED_ITS ---
HPI - Back Pain/Injury General: Chief Complaint: Back Pain/Injury Stated Complaint: Chest pains Time Seen by Provider: 03/15/20 10:12 History of Present Illness: HPI Narrative: 79-year-old male presents emergency room with complaint of chest pain radiating to his back and into his left arm. He was seen 3 days ago at that time he had cardiac work-up done which was negative he was discharged home he has a known history of coronary artery disease multivessel disease was seen on a previous angiogram. He has a history of atrial fibrillation as well and he is on apixaban. He is continuing to have chest and back discomfort. He denies any fever sweats or chills denies productive cough pain is somewhat reproducible palpation left anterior chest wall MD elicited complaint: other (chest pain) Onset (ago): day(s) Timing: intermittent Severity: moderate Similar Symptoms Previously: Yes Quality: sharp Location: left upper back Radiation: other (L upper back) Associated symptoms: Reports fatigue and weakness; Deny abdominal pain, arthralgias, chills, change in bowel habits, difficulty walking, dysuria, fecal incontinence, fever(s), hematuria, myalgias, nausea, numbness, syncope, tingling/numbness/burning, urinary frequency, urinary urgency or vomiting Review of Systems Const: Reports: fatigue; Denies: fever(s) or chills ENMT: Denies: throat pain, ear or mastoid pain, nasal discharge or nasal congestion Card: Denies: syncope Resp: Denies: dyspnea, productive cough or non-productive cough GI: Denies: abdominal pain, nausea, vomiting, fecal incontinence or change in bowel habits : Denies: dysuria, urinary urgency or hematuria Skin/Breast: Denies: rash or pruritus Neuro: Denies: difficulty walking PFS ED PFSH: Medical History (Updated 03/16/20 @ 11:18 by Shawn Santos DO) Anticoagulation adequate with anticoagulant therapy Atherosclerotic heart disease of [place] coronary artery with other forms of angina pectoris Atherosclerotic heart disease of [place] coronary artery with unstable angina pectoris Atrial fibrillation CAD (coronary artery disease) Chronic kidney disease (CKD) Dyslipidemia Essential hypertension GERD (gastroesophageal reflux disease) Peripheral neuropathy Sleep apnea TIA (transient ischemic attack) Surgical History History of coronary angiogram History of neck surgery History of shoulder surgery History of surgery on wrist Family History Other Diabetes Denies family history of Cancer Social History Smoking and tobacco status: former smoker Alcohol intake: never Household members: spouse Marital status: Current occupational status: retired Physical Exam Const: COMMON NORMALS: no acute distress GENERAL APPEARANCE: cooperative and comfortable ORIENTATION/CONSCIOUSNESS: Yes awake, Yes oriented to person, Yes oriented to place and Yes oriented to time HENMT: COMMON NORMALS: normocephalic, atraumatic, hearing grossly normal bilaterally, external ears normal, EAC's normal, TM's normal bilaterally, Normal nasal mucous membranes and turbinates present, moist oral mucous membranes and oropharynx normal HEAD & SCALP: normocephalic and atraumatic NOSE: Normal nasal mucous membranes and turbinates present EXTERNAL EAR: Yes external ears normal EXTERNAL AUDITORY CANAL: EAC's normal TYMPANIC MEMBRANE: TM's normal bilaterally Eye: COMMON NORMALS: Equal, round and reactive pupils present, EOMs intact bilaterally, conjunctivae normal and no scleral icterus CONJUNCTIVA: Yes conjunctivae normal PUPIL: Yes Equal, round and reactive pupils present Neck/C-Spine: COMMON NORMALS: full ROM, no lymphadenopathy, supple and no JVD Lymph: LYMPHATIC: no lymphadenopathy noted and no lymphedema noted Resp: COMMON NORMALS: normal respiratory effort, No retractions, No use of accessory muscles and clear to auscultation bilaterally AUSCULTATION: clear to auscultation bilaterally Cardio: COMMON NORMALS: no JVD, regular rate, regular rhythm and No murmurs present (Cardio) RATE: regular rate RHYTHM: regular rhythm GI: COMMON NORMALS: Soft to palpation and No hepatosplenomegaly present AUSCULTATION: Yes normoactive bowel sounds PALPATION: Yes Soft to palpation, No Tenderness to palpation present (GI), No Guarding due to palpation present (GI) and Yes No hepatosplenomegaly present Extremity: COMMON NORMALS: normal to inspection, capillary refill normal, no clubbing, cyanosis or edema, no calf tenderness and no pedal edema Neuro: SENSORIUM/ORIENTATION: Yes oriented to person, Yes oriented to place and Yes oriented to time Skin: COMMON NORMALS: no rashes or lesions noted GENERAL SKIN EXAM: no rashes or lesions noted Course Vital Signs: Vital signs: Vital Signs Temperature 98.0 F 03/16/20 07:10 Pulse Rate 64 03/16/20 07:10 Respiratory Rate 16 03/16/20 07:10 Blood Pressure 166/76 03/16/20 07:10 Pulse Oximetry 95 03/16/20 07:10 MDM - Back Pain/Injury MDM Narrative: Medical decision making narrative: Patient has a history of coronary artery disease. Few approximately 3 years ago patient had a angiogram which showed significant three-vessel disease he continues to have unstable angina. He was responsive to nitro when he was here the other day we will go ahead and admit him to hospitalist consult cardiology. Lab Data: Labs: Lab Results 03/15/20 03/15/20 03/15/20 Range/Units 11:15 11:15 11:15 WBC 12.1 H (4.0-10.0) 10^3/ uL RBC 4.15 (4.1-5.3) 10^6/u L Hgb 12.9 (11.7-16.6) g/dL Hct 38.5 L (42.0-52.0) % MCV 92.8 (80-94) fL MCH 31.1 (28.0-34.0) pg MCHC 33.5 (30.0-36.0) g/dL RDW 14.3 (12.1-15.1) % Plt Count 209 (130-400) 10^3/c mm MPV 10.4 (7.4-10.4) fL Neut % (Auto) 73.1 % Lymph % (Auto) 16.9 % [place] % (Auto) 8.9 % Eos % (Auto) 0.4 % Baso % (Auto) 0.2 % Neut # (Auto) 8.84 H (1.8-7.7) 10^3/u L Lymph # (Auto) 2.0 (0.8-4.8) 10^3/u L [place] # (Auto) 1.1 H (0.2-0.9) 10^3/u L Eos # (Auto) 0.1 (0.0-0.8) 10^3/u L Baso # (Auto) 0.0 (0.0-0.1) 10^3/u L Nucleated RBC % (a uto) 0 % Nucleated RBCs # 0.0 /100WBC Sodium 141 (136-145) mmol/L Potassium 3.5 (3.5-5.1) mmol/L Chloride 104 (98-107) mmol/L Carbon Dioxide 25 (22-29) mmol/L Anion Gap 15.5 (5-19) BUN 30 H (8-23) mg/dL Creatinine 1.5 H (0.7-1.2) mg/dL GFR Calculation Not Reportable Glucose 151 H (65-115) mg/dL Estimat Average Gl ucose Hemoglobin A1c (4.0-6.0) % Calculated Osmolal ity 301 H (285-295) mOsm/k g Calcium 8.8 (8.5-10.5) mg/dL Total Bilirubin 0.4 (0.15-1.2) mg/dL AST 15 (0-40) U/L ALT 14 (0-41) U/L Alkaline Phosphata se 67 (40-130) IU/L Troponin T Baselin e 21 H (0-15) ng/L Total Protein 7.0 (6.6-8.7) g/dL Albumin 3.8 (3.5-5.2) g/dL Globulin 3.2 (1.3-4.6) g/dL TSH (0.27-4.20) uIU/ mL 03/15/20 03/15/20 Range/Units 11:15 11:15 WBC (4.0-10.0) 10^3/ uL RBC (4.1-5.3) 10^6/u L Hgb (11.7-16.6) g/dL Hct (42.0-52.0) % MCV (80-94) fL MCH (28.0-34.0) pg MCHC (30.0-36.0) g/dL RDW (12.1-15.1) % Plt Count (130-400) 10^3/c mm MPV (7.4-10.4) fL Neut % (Auto) % Lymph % (Auto) % [place] % (Auto) % Eos % (Auto) % Baso % (Auto) % Neut # (Auto) (1.8-7.7) 10^3/u L Lymph # (Auto) (0.8-4.8) 10^3/u L [place] # (Auto) (0.2-0.9) 10^3/u L Eos # (Auto) (0.0-0.8) 10^3/u L Baso # (Auto) (0.0-0.1) 10^3/u L Nucleated RBC % (a uto) % Nucleated RBCs # /100WBC Sodium (136-145) mmol/L Potassium (3.5-5.1) mmol/L Chloride (98-107) mmol/L Carbon Dioxide (22-29) mmol/L Anion Gap (5-19) BUN (8-23) mg/dL Creatinine (0.7-1.2) mg/dL GFR Calculation Glucose (65-115) mg/dL Estimat Average Gl ucose 105 Hemoglobin A1c 5.3 (4.0-6.0) % Calculated Osmolal ity (285-295) mOsm/k g Calcium (8.5-10.5) mg/dL Total Bilirubin (0.15-1.2) mg/dL AST (0-40) U/L ALT (0-41) U/L Alkaline Phosphata se (40-130) IU/L Troponin T Baselin e (0-15) ng/L Total Protein (6.6-8.7) g/dL Albumin (3.5-5.2) g/dL Globulin (1.3-4.6) g/dL TSH 1.09 (0.27-4.20) uIU/ mL Discharge Plan Discharge Patient Disposition: Admitted As Inpatient Admit Provider: Syed Perales Clinical Impression: Atherosclerotic heart disease of [place] coronary artery with unstable angina pectoris, CAD (coronary artery disease), Atrial fibrillation, Essential hypertension, Dyslipidemia, Chronic kidney disease (CKD) Condition: Stable Coding Level of Care Code ED 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
[2020-03-15 11:28] LABS: Basophils % 0.2 %; Eosinophils # 0.1 10^3/uL (0.0-0.8); Eosinophils % 0.4 %; Hematocrit 38.5 % (42.0-52.0); Hemoglobin 12.9 g/dL (11.7-16.6); Lymphocytes % 16.9 %; Mean Corpuscular HGB Conc 33.5 g/dL (30.0-36.0); Mean Corpuscular Hemoglobin 31.1 pg (28.0-34.0); Mean Corpuscular Volume 92.8 fL (80-94); Mean Platelet Volume 10.4 fL (7.4-10.4); Monocytes # 1.1 10^3/uL (0.2-0.9); Monocytes % 8.9 %; Neutrophils # 8.84 10^3/uL (1.8-7.7); Neutrophils % 73.1 %; Nucleated Red Blood Cells % 0 %; Platelet Count 209 10^3/cmm (130-400); Red Blood Count 4.15 10^6/uL (4.1-5.3); Red Cell Distribution Width 14.3 % (12.1-15.1); White Blood Count 12.1 10^3/uL (4.0-10.0)
[2020-03-15 12:08] LABS: Alanine Aminotransferase 14 U/L (0-41); Albumin Level 3.8 g/dL (3.5-5.2); Alkaline Phosphatase 67 IU/L (40-130); Anion Gap 15.5 (5-19); Aspartate Amino Transferase 15 U/L (0-40); Blood Urea Nitrogen 30 mg/dL (8-23); Calcium 8.8 mg/dL (8.5-10.5); Carbon Dioxide 25 mmol/L (22-29); Chloride 104 mmol/L (98-107); Globulin 3.2 g/dL (1.3-4.6); Glucose 151 mg/dL (65-115); Osmolality Calculated 301 mOsm/kg (285-295); Potassium 3.5 mmol/L (3.5-5.1); Sodium 141 mmol/L (136-145); Total Bilirubin 0.4 mg/dL (0.15-1.2)
[2020-03-15 12:09] LABS: Troponin(5th) Baseline 21 ng/L (0-15)
--- NOTE | 2020-03-15 13:15 | PM.HP ---
Providers/Chief Complaint Primary Care Provider: Nikita Mosher MD Chief Complaint: Chest pains History of Present Illness Isaac Blanco is a 79 year old male who presents to the emergency department with complaints of chest discomfort. He has been to the ER twice, first on the and then again today. He describes his discomfort as left-sided, squeezing and sharp with some radiation into the left shoulder. He has had some back pain as well. No shortness of breath, or nausea. Getting up and moving can make it a little better. Nitroglycerin has helped minimally. Pain seems to come and go. He reports over the last year he had only used about 4 nitroglycerin until the until now where he is used at least 14. He denies any history of Covid, exposure to Covid, fever, cough. At his last ER visit he underwent a CTA which demonstrated no pulmonary embolism. Previous cardiac evaluation with cath was in April 2018 where he had 50 to 60% left main stenosis, 60 to 70% ostial circumflex stenosis with diffuse mid circumflex disease, and occluded posterior descending artery with collateral circumflex flow. EF was 45% at that time. He is still having some mild discomfort around 5 out of 10. Review of Systems General: Reports: 10 or more systems reviewed and unremarkable except in HPI and below Const: Denies: fever(s) or chills Eyes: Denies: change in vision ENMT: Denies: throat pain Card: Reports: chest pain Resp: Denies: dyspnea GI: Denies: abdominal pain, nausea or vomiting : Denies: flank pain Musc: Denies: neck pain Skin/Breast: Denies: rash Neuro: Denies: headache(s) Psych: Denies: anxiety Endo: Denies: polyuria Ever/Lymph: Denies: easy bruising All/Imm: Denies: urticaria Medications/Allergies Home Medications Medication Instructions Recorded Confirmed Last Taken Type amiodarone 200 mg tablet 100 mg PO DAILY@1000 06/04/19 03/15/20 03/15/20 History isosorbide mononitrate 60 mg 60 mg PO DAILY 06/04/19 03/10/20 02/17/20 History tablet,extended release 24 hr pantoprazole 40 mg tablet,delayed 40 mg PO BID 06/04/19 03/10/20 02/17/20 History release apixaban 5 mg tablet 2.5 mg PO BID@1000,2100 08/21/19 03/15/20 03/15/20 History saw palmetto 450 mg capsule 450 mg PO BID 08/21/19 03/10/20 02/17/20 History verapamil 40 mg tablet 40 mg PO DAILY #90 tab 01/09/20 03/10/20 02/16/20 Rx acetaminophen 500 mg PO DAILY@1000 02/17/20 03/15/20 03/15/20 History atorvastatin 40 mg PO DAILY 02/17/20 03/15/20 03/15/20 History magnesium 250 mg PO DAILY 02/17/20 03/10/20 02/17/20 History multivitamin [Multi-Vitamin] 1 tab PO DAILY 02/17/20 03/10/20 02/17/20 History nitroglycerin 0.4 mg SUBLINGUAL Q5M PRN 02/17/20 03/10/20 Unknown History vitamin B complex 1 tab PO DAILY 02/17/20 03/10/20 02/17/20 History amlodipine 5 mg tablet 5 mg PO DAILY@1000 tab 03/10/20 03/15/20 03/15/20 History doxycycline hyclate 100 mg PO BID 10 Days #20 cap 03/12/20 Unknown Rx aspirin [Aspir-Low] 81 mg PO DAILY@1000 03/15/20 03/15/20 03/15/20 History Allergies Allergy/AdvReac Type Severity Reaction Status Date / Time hydrocodone Allergy Severe Unknown Verified 03/15/20 10:24 codeine Allergy Unknown Unknown Verified 03/15/20 10:24 PFSH Acute PFSH: Medical History (Updated 03/15/20 @ 13:19 by Syed Perales MD) Anticoagulation adequate with anticoagulant therapy Atrial fibrillation CAD (coronary artery disease) Chronic kidney disease (CKD) Dyslipidemia Essential hypertension GERD (gastroesophageal reflux disease) Peripheral neuropathy Sleep apnea TIA (transient ischemic attack) Surgical History (Updated 03/15/20 @ 13:19 by Syed Perales MD) History of coronary angiogram History of neck surgery History of shoulder surgery History of surgery on wrist Family History Other Diabetes Denies family history of Cancer Social History Smoking and tobacco status: former smoker Alcohol intake: never Household members: spouse Marital status: Current occupational status: retired Vitals/I&O/Wt Last Vital Signs Temp 97.7 F 03/15/20 10:11 Pulse 73 03/15/20 10:11 Resp 16 03/15/20 10:11 BP 148/69 03/15/20 10:11 Pulse Ox 96 03/15/20 10:11 Weight last 48 hrs Weight 65.771 kg Physical Exam Narrative: EXAM NARRATIVE: General exam is an elderly white male in no apparent distress, conversant HEENT: Pupils equally round. Oropharynx clear. Neck is supple no lymphadenopathy or thyromegaly Cardiovascular regular rate and rhythm without murmur, no S3 or S4 Lungs are clear no wheezing or crackles Abdomen is soft nontender with positive bowel sounds. No obvious organomegaly was deferred Extremities no cyanosis clubbing or edema, cap refill brisk Skin no rash Neuro no obvious focal deficits. Data : 03/15/20 11:15 03/15/20 11:15 Other data: Chest x-ray by my read no infiltrate EKG demonstrates sinus rhythm rate of [address] depression V5, V6 and laterally. This is rather unchanged from previous EKGs. Troponin baseline is 21 with repeat pending LFTs normal Previous rapid Cov - March 12 A&P Assessment and plan (1) Chest pain: Chest discomfort somewhat atypical, but still concerning in this patient with known coronary disease in multiple vessels. Serial troponins and EKGs Check echocardiogram Check TSH Cardiology consultation Nitroglycerin ointment Morphine for breakthrough pain Status: Acute Qualifiers: Chest pain type: unspecified Qualified Code(s): R07.9 - Chest pain, unspecified (2) CAD (coronary artery disease): Last angiogram April 2018 demonstrating multivessel disease as outlined in HPI Aspirin, statin will continue. No beta-sharri as he is on amiodarone and verapamil. Status: Acute (3) Atrial fibrillation: Currently in sinus rhythm, on amiodarone As patient presenting with chest discomfort and could require intervention we will hold Eliquis, convert to Lovenox Check TSH Status: Acute (4) Essential hypertension: Continue home meds Status: Acute (5) Chronic kidney disease (CKD): Follow closely Status: Acute Additional A&P Information Elevated glucose. Check hemoglobin A1c. Consistent carb, cardiac diet. Multiple other medical problems as outlined by his past medical history On Eliquis prior to coming in for DVT prophylaxis. Will convert to Lovenox tonight. Full code Attestations Medical Necessity Statement*: Will need less than 2 midnight stay for evaluation and treatment of chest discomfort. Time Spent in Patient Care: Greater than 35 minutes Coding Level of Care Code Acute Senior Technical Support Engineer for [facility] Fwd Diagnoses Chest pain R07.9 Chest pain type: unspecified CAD (coronary artery disease) I25.10 Atrial fibrillation I48.91 Essential hypertension I10 Chronic kidney disease (CKD) N18.9
[2020-03-15] MEDS: nitroglycerin 1 gm/inch oint Pkt 0.5 INCH TOPICAL (13:26)
[2020-03-15 13:40] LABS: Troponin 5 2HR 19.56 ng/L (0-15)
[2020-03-15 13:42] LABS: Troponin 5 2HR Delta -1.44 ABS# (0-10)
[2020-03-15 14:40] LABS: Thyroid Stimulating Hormone 1.09 uIU/mL (0.27-4.20)
--- NOTE | 2020-03-15 16:53 | ECG_ITS ---
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 Measurements Intervals [place] Rate: 70 P: 67 UT: 182 QRS: 6 QRSD: 110 T: 60 QT: 449 QTc: 485 Interpretive Statements SINUS RHYTHM POSSIBLE INFERIOR MYOCARDIAL INFARCTION , PROBABLY OLD [30 ms Q WAVE IN II/aVF] Compared to ECG 03/15/2020 10:15:19 Myocardial infarct finding now present Left ventricular hypertrophy no longer present ST (T wave) deviation no longer present Electronically Signed On 03-15-2020 16:56:46 ISOLATION WASHER by Garcia Chaparro M.D. [email or web address] grove [id number]
[2020-03-15 17:10] LABS: Estmated Average Glucose 105; Hemoglobin A1C 5.3 % (4.0-6.0)
--- NOTE | 2020-03-15 18:14 | PM.CONSULT ---
Providers/Reason For Consult Consulting Physican/Specialty*: ERIN Huerta MD/cardiology Reason for Consult*: Patient with history of coronary artery disease presenting with chest pain and elevated troponin T. Cardiology consult is requested for further cardiac evaluation recommendations. Attending Physician: Syed Perales MD Primary Care Provider: Nikita Mosher MD History of Present Illness History of Present Illness Isaac Blanco is a 79 year old male, he is admitted to the hospital through the emergency room, where he presented with complaints of seeing episodes of chest pains. Mr. Blanco is known to have coronary artery disease. He had a cardiac catheterization in April 2018. At that time, he was found to have around 50 to 60% left main disease. He had a moderate ostial narrowing in the circumflex artery. One of the obtuse marginal branches were found to have a high-grade lesion. The PLV branch was found to be totally occluded. He had a mild to moderate diffuse disease in the other vessels. His LV ejection fraction was around 45%. Further details, please refer to the report below. After the angiogram it was decided to optimize the medical treatment. The plan was to consider intervention, if he has significant recurrence of chest pain. Patient used to be followed by Dr. Chahal and since his halfway, he is being followed by Dr. Chaparro. According to the patient has been having stable anginal symptoms up until last week. He might have had 3 of 4 episodes of chest pain requiring sublingual nitroglycerin up until last week. Since last Sunday, he had to take 13 -14 sublingual nitroglycerin tablet for pain. He has left-sided chest pain which radiates to the left arm and to the back. The intensity of the pain was moderate. The symptoms were intermittent, more in the measuring machine tender hours. He may have associated shortness of breath. He has been having a tight feeling in the chest, more or less constant, since last Sunday. For these symptoms, he was seen in the emergency room on last Sunday. Myocardial infarction was ruled out. CT of the chest revealed possible pneumonia. He was prescribed doxycycline. He continued to have the chest pain, radiating to both arms intermittently. This morning around 8:00, he started having more severe pain. The intensity of the pain was 9-10 over 10. Because of the worsening of the symptoms, he decided to come to the hospital. Certainly also have some medication changes. Patient apparently was taking the amlodipine and verapamil. The last week, the verapamil was discontinued and the dose of amlodipine was increased to 5 mg daily. Patient has a history of intermittent atrial fibrillation. He had a several hospital admissions last year for symptomatic atrial fibrillation with rapid ventricular rate. Apparently whenever the heart rate goes up, he been having chest pain. He was placed on amiodarone. He has been doing okay with the combination of amiodarone and verapamil for the rate control and rhythm control. He is also on long-term oral anticoagulation. Review of Systems Narrative: CONSTITUTIONAL: No fever or chills. Been having some amount of fatigue EYES: No blurring of vision or other visual disturbances lately. ENT: No hoarseness of voice, auditory disturbances or sore throat. CARDIOVASCULAR: As mentioned above. RESPIRATORY: Has some baseline shortness of breath with activities/possible pneumonia GASTROINTESTINAL: No hematemesis or melena. GENITOURINARY: No dysuria or hematuria. INTEGUMENTARY: No skin rashes or history of skin cancer. NEURO: No transient ischemic attacks or amaurosis. PSYCHIATRIC: No history of psychosis or major depression. HEMATOLOGIC: No bleeding disorders or significant anemia. ENDOCRINE: No history of polyuria or polydipsia. MUSCULOSKELETAL: No recent joint pain or swelling. ALLERGY/IMMUNOLOGY: As mentioned above. Meds/Allergies Home Medications and Allergies Home Medications Medication Instructions Recorded Confirmed Last Taken Type amiodarone 200 mg tablet 100 mg PO DAILY@1000 06/04/19 03/15/20 03/15/20 History isosorbide mononitrate 60 mg 60 mg PO DAILY@1000 06/04/19 03/15/20 03/15/20 History tablet,extended release 24 hr pantoprazole 40 mg tablet,delayed 40 mg PO BID@1000,209906/04/19 03/15/20 03/15/20 History release apixaban 5 mg tablet 2.5 mg PO BID@1000,209908/21/19 03/15/20 03/15/20 History saw palmetto 450 mg capsule 450 mg PO BID@1000,209908/21/19 03/15/20 03/15/20 History acetaminophen 500 mg PO DAILY@1000 02/17/20 03/15/20 03/15/20 History atorvastatin 40 mg PO DAILY 02/17/20 03/15/2020 History magnesium 250 mg PO DAILY@1000 02/17/20 03/15/20 03/15/20 History multivitamin [Multi-Vitamin] 1 tab PO DAILY@1000 02/17/20 03/15/20 03/15/20 History nitroglycerin 0.4 mg SUBLINGUAL Q5M PRN 02/17/20 03/15/20 03/15/20 History vitamin B complex 1 tab PO DAILY@1000 02/17/20 03/15/20 03/15/20 History amlodipine 5 mg tablet 5 mg PO DAILY@1000 tab 03/10/20 03/15/20 03/15/20 History aspirin [Aspir-Low] 81 mg PO DAILY@1000 03/15/20 03/15/20 03/15/20 History doxycycline hyclate 100 mg PO BID@1000,2100 03/15/20 03/15/20 03/15/20 History Allergies Allergy/AdvReac Type Severity Reaction Status Date / Time hydrocodone Allergy Severe Unknown Verified 03/15/20 10:24 codeine Allergy Unknown Unknown Verified 03/15/20 10:24 PFSH Acute PFSH: Medical History (Updated 03/16/20 @ 11:18 by Shawn Santos DO) Anticoagulation adequate with anticoagulant therapy Atherosclerotic heart disease of [place] coronary artery with other forms of angina pectoris Atherosclerotic heart disease of [place] coronary artery with unstable angina pectoris Atrial fibrillation CAD (coronary artery disease) Chronic kidney disease (CKD) Dyslipidemia Essential hypertension GERD (gastroesophageal reflux disease) Peripheral neuropathy Sleep apnea TIA (transient ischemic attack) Surgical History History of coronary angiogram History of neck surgery History of shoulder surgery History of surgery on wrist Family History Other Diabetes Denies family history of Cancer Social History Smoking and tobacco status: former smoker Alcohol intake: never Household members: spouse Marital status: Current occupational status: retired Vitals/I&O/Wt Last Vital Signs Temp 97.7 F 03/15/20 10:11 Pulse 73 03/15/20 16:10 Resp 20 H 03/15/20 16:10 BP 121/63 03/15/20 16:10 Pulse Ox 96 03/15/20 16:10 Weight last 48 hrs Weight 145 lb Physical Exam Narrative: EXAM NARRATIVE: GENERAL: The patient is alert and oriented times three. Not in any acute distress. HEENT: No significant pallor, icterus or lymphadenopathy. The pupils are reactant to light. Oral cavity: There are no mucous membrane lesions. Funduscopic examination: The disk margins appear to be sharp with no exudates or hemorrhages. NECK: Trachea appears to be central. No masses noted. No JVD or thyromegaly appreciated. No carotid bruit. RESPIRATORY: Chest is symmetrical. No intercostals muscle retraction or any accessory muscle activation. There is no chest wall tenderness. Breath sounds are heard bilaterally. No rales or rhonchi heard. No evidence of any consolidation. BREASTS: Deferred. HEART: The PMI is in the 5th left intercostals space just in the midclavicular line. No palpable precordial events. S1 and S2 are normal. No S3 or S4 heard. No pericardial rub or any click heard. Systolic murmur in the left sternal border. No diastolic murmurs. ABDOMEN: No vessel pulsations or distention. No tenderness. No organomegaly appreciated. No abdominal bruit. Bowel sounds are normally heard. : Deferred. RECTAL: Deferred. LYMPHATIC: No lymphadenopathy noted in the neck or groin. EXTREMITIES: No edema or cyanosis. No clubbing. The pulses are symmetrical bilaterally. The radial, femoral, dorsalis pedis and the posterior tibial pulses are palpated and found to be in good volume and amplitude. MUSCULOSKELETAL: No acute joint deformities or swelling SKIN: There are no significant scars or skin rash noted. NEUROPSYCHIATRIC: The patient is alert and oriented x3. Appears to be in a good mood. The higher functions are grossly within normal limits. No tremors or rigidity noted. Data Labs: Other Labs: Laboratory Last Values WBC 12.1 10^3/uL (4.0 -10.0) H 03/15/20 11:15 RBC 4.15 10^6/uL (4.1 -5.3) 03/15/20 11:15 Hgb 12.9 g/dL (11.7-1 6.6) 03/15/20 11:15 Hct 38.5 % (42.0-52.0 ) L 03/15/20 11:15 MCV 92.8 fL (80-94) 03/15/20 11:15 MCH 31.1 pg (28.0-34. 0) 03/15/20 11:15 MCHC 33.5 g/dL (30.0-3 6.0) 03/15/20 11:15 RDW 14.3 % (12.1-15.1 ) 03/15/20 11:15 Plt Count 209 10^3/cmm (130 -400) 03/15/20 11:15 MPV 10.4 fL (7.4-10.4 ) 03/15/20 11:15 Neut % (Auto) 73.1 % 03/15/20 11:15 Lymph % (Auto) 16.9 % 03/15/20 11:15 [place] % (Auto) 8.9 % 03/15/20 11:15 Eos % (Auto) 0.4 % 03/15/20 11:15 Baso % (Auto) 0.2 % 03/15/20 11:15 Neut # (Auto) 8.84 10^3/uL (1.8 -7.7) H 03/15/20 11:15 Lymph # (Auto) 2.0 10^3/uL (0.8- 4.8) 03/15/20 11:15 [place] # (Auto) 1.1 10^3/uL (0.2- 0.9) H 03/15/20 11:15 Eos # (Auto) 0.1 10^3/uL (0.0- 0.8) 03/15/20 11:15 Baso # (Auto) 0.0 10^3/uL (0.0- 0.1) 03/15/20 11:15 Nucleated RBC % (a uto) 0 % 03/15/20 11:15 Nucleated RBCs # 0.0 /100WBC 03/15/20 11:15 Sodium 141 mmol/L (136-1 45) 03/15/20 11:15 Potassium 3.5 mmol/L (3.5-5 .1) 03/15/20 11:15 Chloride 104 mmol/L (98-10 7) 03/15/20 11:15 Carbon Dioxide 25 mmol/L (22-29) 03/15/20 11:15 Anion Gap 15.5 (5-19) 03/15/20 11:15 BUN 30 mg/dL (8-23) H 03/15/20 11:15 Creatinine 1.5 mg/dL (0.7-1. 2) H 03/15/20 11:15 GFR Calculation Not Reportable 03/15/20 11:15 Glucose 151 mg/dL (65-115 ) H 03/15/20 11:15 Estimat Average Gl ucose 105 03/15/20 11:15 Hemoglobin A1c 5.3 % (4.0-6.0) 03/15/20 11:15 Calculated Osmolal ity 301 mOsm/kg (285- 295) H 03/15/20 11:15 Calcium 8.8 mg/dL (8.5-10 .5) 03/15/20 11:15 Total Bilirubin 0.4 mg/dL (0.15-1 .2) 03/15/20 11:15 AST 15 U/L (0-40) 03/15/20 11:15 ALT 14 U/L (0-41) 03/15/20 11:15 Alkaline Phosphata se 67 IU/L (40-130) 03/15/20 11:15 Troponin T Baselin e 21 ng/L (0-15) H 03/15/20 11:15 Troponin T 120 Min [place] 19.56 ng/L (0-15) H 03/15/20 13:10 Delta Troponin T -1.44 ABS# (0-10) L 03/15/20 13:10 Total Protein 7.0 g/dL (6.6-8.7 ) 03/15/20 11:15 Albumin 3.8 g/dL (3.5-5.2 ) 03/15/20 11:15 Globulin 3.2 g/dL (1.3-4.6 ) 03/15/20 11:15 TSH 1.09 uIU/mL (0.27 -4.20) 03/15/20 11:15 Imaging^: CT Chest: Radiologist's impression: 1. There is no evidence for pulmonary emboli. 2. Ground-glass opacity seen in the right hemithorax could represent mild asymmetric pulmonary edema although a right interstitial pneumonitis cannot be excluded. 3. Hyperdense appearing liver. Hemochromatosis could have this appearance. 4. 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 Cardiac catheterization: My impression: On 04/23/2018 revealed 50-60% left main stenosis. Mild diffuse LAD disease. 60% ostial circumflex disease. Right posterior descending artery occluded with collateral flow from the circumflex. Akinesis of the inferior base, otherwise normal LV function. Ejection fraction 45% EKG^: EKG 1: My Interpretation: The EKG revealed sinus rhythm with a diffuse ST-T changes more prominent in the inferolateral leads. The QTC was 485. A&P Assessment and plan (1) Atherosclerotic heart disease of [place] coronary artery with unstable angina pectoris: The patient is a clinical features are consistent with an unstable angina. Hemodynamically seems to be stable. The baseline troponin T is slightly elevated. He has a negative delta. Most likely he may have progression of the underlying coronary artery disease. Hematemesis started on heparin, beta-sahrri, aspirin and the statin drugs. I also may start him on nitrates. He needs to be closely monitored on telemetry. Because of the left main disease, he may require surgical intervention. For that reason, I may hold off on Plavix. He is Eliquis also may be held at this point. An echocardiogram would be helpful to evaluate his LV function He may be started on metoprolol 25 mg p.o. twice daily. Isosorbide mononitrate 30 mg p.o. daily.. Status: Acute Qualifiers: [place] vs. transplanted heart: [place] heart Qualified Code(s): I25.110 - Atherosclerotic heart disease of [place] coronary artery with unstable angina pectoris (2) Ischemic cardiomyopathy: Patient is known to have ischemic cardiomyopathy. His ejection fraction was 45% in April of last year. A repeat echocardiogram to be helpful to reevaluate the LV function and also to rule out any other pathology. Clinically he does not appear to be in heart failure. Status: Acute (3) Atrial fibrillation: Patient is known to have intermittent atrial fibrillation. Currently he is in sinus rhythm. I may start him on metoprolol 25 mg p.o. twice daily. Status: Acute Qualifiers: Atrial fibrillation type: unspecified chronic Qualified Code(s): I48.20 - Chronic atrial fibrillation, unspecified (4) Dyslipidemia: May continue on the current medications. Status: Acute (5) Essential hypertension: The blood pressure needs to be closely monitored. Currently the blood pressure is a stage II. Status: Acute (6) Chronic kidney disease (CKD): Patient may be carefully hydrated. Also may keep him n.p.o. after midnight. Status: Acute Qualifiers: Chronic kidney disease stage: stage 3 (moderate) Chronic kidney disease stage 3 subtype: stage 3a (GFR 45-59) Qualified Code(s): N18.31 - Chronic kidney disease, stage 3a Additional A&P Information The problems are History of dyslipidemia Mild leukocytosis Possible pneumonia For further evaluation of the patient's coronary status, he may benefit from a repeat cardiac catheterization patient and then decide on further management. Dr. Chaparro will be assuming the care of this patient in the morning. I will carefully hydrate him tonight and keep him n.p.o. after midnight Based on the patient's the clinical progress and the results of the above, further recommendations will be made. Thank you for the opportunity to evaluate this patient make these recommendations Consult Attestations Medical Necessity Statement: Patient requires continued hospital stay for close monitoring and further management Coding Level of Care Code Acute Assistant Store Manager Sales for Chg Fwd History Comprehensive Exam Comprehensive Medical Decision Making High Complexity Diagnoses Atherosclerotic heart disease of [place] coronary artery with unstable angina pectoris I25.110 [place] vs. transplanted heart: [place] heart Ischemic cardiomyopathy I25.5 Atrial fibrillation I48.20 Atrial fibrillation type: unspecified chronic Dyslipidemia E78.5 Essential hypertension I10 Chronic kidney disease (CKD) N18.31 Chronic kidney disease stage: stage 3 (moderate) Chronic kidney disease stage 3 subtype: stage 3a (GFR 45-59) Time Spent (min) 60
[2020-03-15] MEDS: pantoprazole DR 40 mg Tablet PO (18:21)
[2020-03-15 18:40] LABS: Troponin 5 6HR 14.99 ng/L (0-15)
[2020-03-15 18:47] LABS: Troponin 5 6HR Delta -6.01 ng/L (0-12)
[2020-03-15] MEDS: metoprolol tartrate 25 mg Tablet PO (19:38)
[2020-03-15] MEDS: enoxaparin 60 mg/0.6 mL Syringe SUBCUT (19:39)
[2020-03-15] MEDS: isosorbide mononitrate 20 mg Tablet 30 MG PO (19:39)
--- NOTE | 2020-03-15 20:10 | PC.NURSE ---
dr holt called and gave verbal orders to start NS fluids at midnight at 75 ml/hr.
[2020-03-15] MEDS: sodium chloride 0.9% 1,000 ML 75 ML IV (23:49)
--- NOTE | 2020-03-15 23:57 | PC.NURSE ---
Patient was asked about his chest pain. Patient states Well earlier I think it was about a 2, but now it is gone. Will monitor.
[2020-03-16] VITALS (56 sets, daily range): BP systolic 80–166; BP diastolic 41–79; PULSE 48–64; RESP 5–23; TEMP 36.6–37; O2SAT 82–100
--- NOTE | 2020-03-16 02:35 | PC.NURSE ---
Patient complains of chest pain 09/25. EKG will be taken. PRN nitropaste will be given.
--- NOTE | 2020-03-16 02:38 | ECG_ITS ---
[facility] Test Date: 2020-03-16 Pat Name: Isaac Blanco Department: Room: 101 Gender: Male Supply Chain Program Manager: ANTWON CHRISTIANB: 1940 Requested By: Ce Huerta Order Number: [id number] Radha MD: Ce Huerta M.D. Measurements Intervals [place] Rate: 62 P: -27 RI: 193 QRS: 21 QRSD: 114 T: 131 QT: 458 QTc: 469 Interpretive Statements SINUS RHYTHM MODERATE INTRAVENTRICULAR CONDUCTION DELAY [110+ ms QRS DURATION] ST DEVIATION AND MODERATE T-WAVE ABNORMALITY, CONSIDER LATERAL ISCHEMIA [-0.1+ mV T WAVE IN I/aVL/V5/V6] WARNING: DATA QUALITY MAY AFFECT INTERPRETATION Compared to ECG 03/15/2020 12:54:02 Intraventricular conduction delay now present T-wave abnormality now present Possible ischemia now present Myocardial infarct finding no longer present Electronically Signed On 03-16-2020 23:59:51 HEAD START TEACHER by Ce Huerta M.D. [id number]
[2020-03-16] MEDS: nitroglycerin 1 gm/inch oint Pkt 0.5 INCH TOPICAL ×2 (02:39→09:04)
[2020-03-16 04:06] LABS: Basophils % 0.2 %; Eosinophils % 0.2 %; Hematocrit 39.7 % (42.0-52.0); Hemoglobin 13.1 g/dL (11.7-16.6); Lymphocytes % 17.1 %; Mean Corpuscular Volume 93.9 fL (80-94); Mean Platelet Volume 10.3 fL (7.4-10.4); Monocytes % 8.4 %; Neutrophils # 8.76 10^3/uL (1.8-7.7); Neutrophils % 73.8 %; Nucleated Red Blood Cells % 0 %; Platelet Count 210 10^3/cmm (130-400); Red Blood Count 4.23 10^6/uL (4.1-5.3); Red Cell Distribution Width 14.5 % (12.1-15.1); White Blood Count 11.9 10^3/uL (4.0-10.0)
--- NOTE | 2020-03-16 04:25 | PC.NURSE ---
Patient states that his chest pain is now down to a 2/10. Will monitor.
[2020-03-16 04:40] LABS: Alanine Aminotransferase 17 U/L (0-41); Albumin Level 3.6 g/dL (3.5-5.2); Alkaline Phosphatase 73 IU/L (40-130); Anion Gap 10.7 (5-19); Aspartate Amino Transferase 17 U/L (0-40); Blood Urea Nitrogen 33 mg/dL (8-23); Calcium 9.1 mg/dL (8.5-10.5); Carbon Dioxide 30 mmol/L (22-29); Chloride 105 mmol/L (98-107); Globulin 3.3 g/dL (1.3-4.6); Glucose 93 mg/dL (65-115); Osmolality Calculated 301 mOsm/kg (285-295); Potassium 3.7 mmol/L (3.5-5.1); Sodium 142 mmol/L (136-145); Total Bilirubin 0.4 mg/dL (0.15-1.2); Total Protein 6.9 g/dL (6.6-8.7)
--- NOTE | 2020-03-16 07:00 | USCV_ITS ---
Isaac Blanco Age: 79 Gender: M : 1940 Exam Date: 03/16/2020 06:09 Ordering Phys: Syed Perales MD Technologist: Audrey Zavaleta Exam Location: [facility] [place] Indication: CHEST PAIN BP: 161 / 74 HR: 61 Rhythm: Sinus Technical Quality: Adequate MEASUREMENTS (Male / Female) Normal Values 2D ECHO LV Diastolic Diameter PLAX 4.5 cm 4.2 - 5.9 / 3.9 - 5.3 cm LV Systolic Diameter PLAX 3.9 cm LV Chamber Size 3.7 cm IVS Diastolic Thickness 1.5 cm 0.6 - 1.0 / 0.6 - 0.9 cm IVS Systolic Thickness 2.0 cm LVPW Diastolic Thickness 1.2 cm 0.6 - 1.0 / 0.6 - 0.9 cm LVPW Systolic Thickness 1.5 cm RV Chamber Size 4.0 cm LVOT Diameter 2.0 cm LV Ejection Fraction 2D Teich 29.8 % LV Ejection Fraction MOD 2C 52.7 % LV Ejection Fraction 2C AL 53.7 % LA Diameter 3.7 cm LA Width 4.1 cm LA Height 4.2 cm RA Width 3.2 cm RA Height 4.1 cm Aorta at Sinotubular Diameter 3.0 cm M-MODE LV Diastolic Diameter MM 6.5 cm 4.2 - 5.9 / 3.9 - 5.3 cm LV Systolic Diameter MM 4.7 cm LV Ejection Fraction MM Teich 52.8 % IVS Diastolic Thickness MM 1.2 cm 0.6 - 1.0 / 0.6 - 0.9 cm IVS Systolic Thickness MM 1.2 cm LVPW Diastolic Thickness MM 1.1 cm 0.6 - 1.0 / 0.6 - 0.9 cm LVPW Systolic Thickness MM 1.6 cm Aortic Annulus Diameter 3.6 cm LA Ao Ratio MM 1.1 MV E Point Septal Separation 0.5 cm DOPPLER AV Peak Velocity 110.0 cm/s LVOT Peak Velocity 88.0 cm/s AV Area Cont Eq vti 2.9 cm squared AV Area Cont Eq pk 2.6 cm squared MV Area PHT 4.6 cm squared Mitral E to A Ratio 0.6 MV E' Velocity 22.5 cm/s Mitral E to MV E' Ratio 10.3 Mitral E to LV E' Lateral Ratio 9.4 Mitral E to LV E' Septal Ratio 11.8 TR Peak Velocity 189.7 cm/s TR Peak Gradient 14.4 mmHg TR Mean Velocity 128.6 cm/s TR Mean Gradient 7.0 mmHg TR Velocity Time Integral 65.4 cm TV Peak E Velocity 50.0 cm/s Right Atrial Pressure 3.0 mmHg Pulmonary Artery Systolic Pressu 17.4 mmHg PV Peak Velocity 64.0 cm/s RV Acceleration Time 0.1 s RV Ejection Time 0.3 s RV AcT/ET 0.4 FINDINGS Left Ventricle Mild diffuse hypokinesia of the left ventricle with ejection fraction of around 50%. Dyskinetic basal inferior wall segment.Grade I/IV diastolic dysfunction (abnormal relaxation filling pattern), normal to mildly elevated filling pressures. Right Ventricle The right ventricle is normal in size and function. Right Atrium The right atrium is normal in size. Left Atrium Mildly increased left atrial size. Mitral Valve Thickened mitral valve. Moderate mitral valve regurgitation. Aortic Valve Thickened aortic valve. [id number] aortic valve regurgitation. Tricuspid Valve Trace to mild tricuspid valve regurgitation. Pulmonic Valve Trace pulmonary valve regurgitation. Pericardium Normal pericardium without effusion. Aorta Normal ascending aorta dimension. CONCLUSIONS Mild diffuse hypokinesia of the left ventricle with ejection fraction of around 50%. Dyskinetic basal inferior wall segment.Grade I/IV diastolic dysfunction (abnormal relaxation filling pattern), normal to mildly elevated filling pressures. Mildly increased left atrial size. Thickened mitral valve. Moderate mitral valve regurgitation. Thickened aortic valve. [id number] aortic valve regurgitation. Trace to mild tricuspid valve regurgitation. Trace pulmonary valve regurgitation. The estimated pulmonary artery peak systolic pressure appears to be normal. However because of the poor Doppler signals at the tricuspid valve this could be misleading. Compared to the study from 03/22/2018, there is slight worsening of the LV systolic function Dr Ce Huerta MD [facility] (Electronically Signed) Final Date: 16 March 2020 09:53 S
--- NOTE | 2020-03-16 07:53 | PC.NURSE ---
lovenox held per dr holt (pt is pre-cath)
[2020-03-16 08:34] LABS: Troponin T (5th) Once 19 ng/L (0-15)
[2020-03-16] MEDS: aspirin 81 mg EC Tablet PO (09:04)
[2020-03-16] MEDS: pantoprazole DR 40 mg Tablet PO ×2 (09:04→18:04)
[2020-03-16] MEDS: metoprolol tartrate 25 mg Tablet PO ×2 (09:04→20:35)
[2020-03-16] MEDS: amiodarone 200 mg Tablet PO (09:05)
[2020-03-16] MEDS: atorvastatin 40 mg Tablet PO (09:05)
[2020-03-16] MEDS: amlodipine 5 mg Tablet 2.5 MG PO (09:05)
[2020-03-16] MEDS: diphenhydrAMINE 50 mg Capsule PO (09:11)
--- NOTE | 2020-03-16 09:21 | XACV_ITS ---
Exam Room: [facility] [place] Ht: 173 cm Wt: 66 kg BSA: 1.78 m2 Gender: Male : 1940 Any Known Allergies: Other Exam Priority: Routine Procedure(s): Procedure Description: Diagnostic procedure Procedure Description: Coronary Angiography Procedure Description: Pressure Wire Diagnostic Cath Status: Urgent Diagnostic Findings * LAD has mid vessel 30 to 40% stenosis. Gives rise to second diagonal artery that has 50% stenosis.. * Left Main Coronary Artery: Mild 30% stenosis, ERVIN: 3 flow. With initial catheter engagement there was some dampening of pressures. Given 30% stenosis, decision was made to perform FFR of left main. * RCA * arises from * right coronary cusp. It has no significant stenosis. * PLV branch * has * diffuse * disease.. * Mid Circumflex Coronary Artery: Moderate 60% stenosis, ERVIN: 3 flow. There is a small OM branch that has subtotal occlusion.. * Given patient's symptoms and transient dampening of pressures in left main artery, plan was to perform FFR of left main through both LAD and left circumflex artery. We engaged the left main artery using a JL4 guide catheter. After zeroing and equalization of pressure wire in the aorta, it was advanced into LAD. FFR of ostial left main was performed after disengagement of the guide. It gave a value of 0.89. This was nonischemic. Guidewire and guide catheter were removed. Sheath was sutured in place for removal later. Patient left the Bag Printer in a stable condition. Then we pulled the wire back and advanced it into left circumflex measuring FFR for ostial left circumflex first that gave a value of 0.85. This was followed by placement of wire into OM branch measuring FFR value for mid left circumflex artery which showed a value of 0.83. All these values were nonischemic. Given diffuse disease of PLV branch and subtotal occlusion of small OM branch, there was overall moderate coronary artery disease with no evidence of ischemia.. * 2nd Diag: Moderate 50% stenosis, ERVIN: 3 flow. * Proximal Circumflex Coronary Artery: Moderate 60% stenosis, ERVIN: 3 flow. * Coronary angiography shows right dominance. Conclusions 1. Mild to moderate disease of left main artery. Nonischemic FFR. Moderate ostial left circumflex and mid left circumflex disease. Subtotal occlusion of small OM branch. Diffuse disease of PLV branch. . Recommendations * Patient does not have any evidence of severe coronary artery disease other than small OM branch subtotal occlusion and diffuse disease of PLV branch. We will treat medically at this time.. * Chest pain is atypical. We will uptitrate the dose of Imdur at this time. In future if he continues having pain, can try Ranexa. Interventional RX Recommendation: medical therapy and/or counseling Diagnostic RX Recommendation: medical therapy and/or counseling Pressures Phase:Rest AO : 148 / 60 ( 95 ) @ 4:05:00 AM 89 / 34 ( 48 ) @ 4:27:00 AM 91 / 57 ( 53 ) @ 4:27:00 AM 150 / 63 ( 97 ) @ 4:29:00 AM Clinical Evaluation EBL: 5mL-10mL Procedural Details Procedure Consent Obtained. Pre-Procedure Time Out. Identified patient by full name and date of as verbalized by the patient/guarantor. Does the consent match the physician's order: Yes. Accurate & Complete Informed Consent: Yes. Inpatient/Outpatient History & Physical on Chart: Yes. If H&P is completed, is and addenduem needed: No; If yes, is the addendum complete: N/A. Visualize and Verify Site with Patient/Guarantor: N/A. Relevant Radiology Images available: N/A. Pre-op teaching completed and patient verbalized understanding. The risks, benefits, and alternatives of sedation and/or procedure were discussed by physician. The patient agrees to continue. Procedure started. [facility] Clinical Fraility Score: 4: Vulnerable. Bag Printer Indications: Worsening Angina. Chest Pain Symptom Assessment: Typical Angina Symptoms. Cardiovascular Instability: No. Correct patient, site and procedure confirmed by cath team. PERRLA. Strong, equal hand lands resource manager bilaterally. Lungs clear x 5 lobes. IV Site on Arrival: 18 gauge in the left forearm. IV Fluids: 0.9% NaCl at KVO. 800 mL infused prior to photo lab manager. Pre Procedural Pulses: bilateral dorsalis pedis was 2+. Pre Procedural Pulses: bilateral posterior tibial was 2+. Pre Procedural Pulses: bilateral radial was 2+. Oxygen started at 2liters/min via nasal canula. bilateral groins was prepped with chloroprep then draped in the usual sterile fashion. right radial was prepped with chloroprep then draped in the usual sterile fashion. Baseline sample Acquired. HR: 62 BPM. Physician arrived. Equipment: 6F - Radial. Cardiac Cath Pack. ACIST Manifold Kit Model BT 2000. Heparinized Saline (2 units/mL), 1000 mL bag. Physician scrubbed in. Immediate Pre-Procedure Time Out. Correct Patient: Yes; Correct Procedure: Yes; Correct Site: Yes; Correct Patient Position: Yes; Correct Supplies: Yes; Dried Flammable Prep: Yes; Blood Products Available: N/A;. Lidocaine 1% infiltrated to the right radial. Arterial access obtained. A 5 armenian TIG catheter in over wire. Catheter removed over the exchange wire. A 6 armenian JL3.5 catheter in over wire. Catheter removed over the exchange wire. A 6 armenian JL4 catheter in over wire. Catheter removed over the exchange wire. Unable to seat catheters. Physician moving to femoral approach. A TR Band was successful obtaining hemostatsis at the Right Radial artery insertion site. TR band placed. Hemostasis obtained. Lidocaine 1% infiltrated to the right groin. Arterial access obtained with micropuncture set. A 6 armenian JL4 catheter in over wire. Multiple views taken of left coronary artery. Catheter out. A 6 armenian JR4 catheter in over wire. Multiple views taken of right coronary artery. Catheter out. Physician scrubbed out to get better look at pictures. A Suture was successful obtaining hemostatsis at the Right Femoral artery insertion site. Dr Chaparro scrubbed back in. 6 armenian JL 4 guide catheter was inserted over the wire. Inventory is CRD 6FR JL 4 GUIDE. FFR guidewire was advanced through the guide catheter to lesion in the left main. An FFR value of 0.89 was obtained for a lesion located at LMCA. FFR repositioned to prox Circ. An FFR value of 0.85 was obtained for a lesion located at Prox CX. An FFR value of 0.83 was obtained for a lesion located at Mid CX. Wire out. Guide catheter out. Sheath(s) sutured into position with 2-0 silk and sterile 4x4's and Op-site applied over the site. No oozing or signs and symptoms of hematoma noted. Arterial sheath flushed and connected to tranducer and pressure bag with heparinized saline. Post Procedure: Pulses reassessed and unchanged. PERRLA. Strong, equal hand lands resource manager bilaterally. No VTE prophylaxis required. Medication's Wasted: Lidocaine 1% = 10 mL. Medication's Wasted: Nitro = 49.8 mg. Medication's Wasted: Heparin = 3000 units. Medication's Wasted: Other = adenosine 14.2 mg. Contrast type used: Omnipaque 300 mgI/mL, 500 mL bottle. Complications: none. Estimated blood loss: 5mL-10mL. Total IV fluids: 100 mL. Post-op diagnosis: moderate multi vessel CAD. Procedure completed. Patient transferred by bed to 1st floor. Vital chart was stopped. Access Site Site: Right Radial artery Sheath Size: 6 Fr Hemostasis Method: TR Band Hemostasis Success: Successful Site: Right Femoral artery Sheath Size: 6 Fr Hemostasis Method: Suture Hemostasis Success: Successful Procedure Medications Start: 10:00 AM Stop: 10:00 AM Medication: Versed Amount: 1 mg Route: I.V. Start: 10:00 AM Stop: 10:00 AM Medication: Fentanyl Amount: 50 mcg Route: I.V. Start: 10:02 AM Stop: 10:02 AM Medication: Nitrogylcerin Amount: 200 mcg Route: Topical Start: 10:07 AM Stop: 10:07 AM Medication: Heparin Amount: 2000 units Route: I.V. Start: 10:49 AM Stop: 10:49 AM Medication: Heparin Amount: 4000 units Route: I.V. Start: 11:03 AM Stop: 11:03 AM Medication: Versed Amount: 1 mg Route: I.V. Start: 11:03 AM Stop: 11:03 AM Medication: Fentanyl Amount: 50 mcg Route: I.V. I, the attending physician, have reviewed and verified all procedure medications. Yes, all medications given per verbal order History/Risk Factors Hypertension: Yes Dyslipidemia: Yes Peripheral Arterial Disease (PAD): No Myocardial Infarction (NE): No Obesity: No Renal Disease: Yes Tobacco Use: Former Prior Interventions PCI: No CABG: No Valve Surgery: No Report Signatures Finalized by Garcia Chaparro MD on 03/27/2020 04:47 PM
--- NOTE | 2020-03-16 09:51 | W.PM.OPSUD ---
Surgery/Procedure H&P Update DATE OF PROCEDURE: March 16, 2020 DATE H&P PERFORMED: 03/15/20 H&P UPDATE INFORMATION: I have reviewed H&P completed within last 30 days, I have examined patient prior to procedure and No changes to prior documentation PREOP DIAGNOSIS: Unstable angina PRIMARY INDICATION FOR PROCEDURE: Unstable angina PLANNED PROCEDURE: Left heart cath/ Coronary angiograpy with possible percutaneous coronary intervention PATIENT REASSESSED PRIOR TO SEDATION, WITH NO CHANGE NOTED: Yes PHYSICAL EXAM: alert, oriented x 3 and clear to auscultation bilaterally AIRWAY EVAL/ANESTHESIA PLAN: ASA III, Risks, benefits & alternatives of sedation and/or procedure discussed and Patient agrees to continue as planned
--- NOTE | 2020-03-16 10:36 | PM.PN ---
Subjective Subjective: Interval history: Isaac reports he had a little chest discomfort last night. This improved with changing his nitroglycerin ointment. He is awaiting his angiogram this morning. No chest discomfort currently. Medications: Reviewed: Yes Vitals/I&O/Wt Last Vital Signs Temp 98.0 F 03/16/20 07:10 Pulse 64 03/16/20 07:10 Resp 16 03/16/20 07:10 BP 166/76 03/16/20 07:10 Pulse Ox 95 03/16/20 07:10 03/15/20 03/16/20 03/16/20 22:59 06:59 14:59 Intake Total 240 / 240 400 / 640 Output Total 200 / 200 900 / 900 Balance 240 / 240 200 / 440 -900 / -900 Weight last 48 hrs Weight 65.771 kg Physical Exam Narrative: EXAM NARRATIVE: General exam is an elderly white male in no apparent distress Neck is supple no lymphadenopathy or thyromegaly Cardiovascular regular rate and rhythm without murmur, no S3 or S4 Lungs are clear no wheezing or crackles Abdomen is soft nontender with positive bowel sounds. No obvious organomegaly Extremities no cyanosis clubbing or edema, cap refill brisk Data : 03/16/20 03:30 03/16/20 03:30 A&P Assessment and plan (1) Chest pain: Chest discomfort somewhat atypical, but still concerning in this patient with known coronary disease in multiple vessels. Serial troponins and EKGs do not show a significant delta Echocardiogram demonstrated EF around 50%, slight worsening from previous TSH was checked and normal Appreciate cardiology consultation Nitroglycerin ointment Morphine for breakthrough pain Metoprolol added by cardiology Status: Acute Qualifiers: Chest pain type: unspecified Qualified Code(s): R07.9 - Chest pain, unspecified (2) CAD (coronary artery disease): Last angiogram April 2018 demonstrating multivessel disease as outlined in HPI Aspirin, statin will continue. Metoprolol has been added Status: Acute (3) Atrial fibrillation: Currently in sinus rhythm, on amiodarone As patient presenting with chest discomfort and could require intervention Eliquis was held and he was placed on Lovenox Status: Acute Qualifiers: Atrial fibrillation type: unspecified chronic Qualified Code(s): I48.20 - Chronic atrial fibrillation, unspecified (4) Essential hypertension: Continue home meds Status: Acute (5) Chronic kidney disease (CKD): Follow closely. Renal function improved today Status: Acute Qualifiers: Chronic kidney disease stage: stage 3 (moderate) Chronic kidney disease stage 3 subtype: stage 3a (GFR 45-59) Qualified Code(s): N18.31 - Chronic kidney disease, stage 3a Additional A&P Information Elevated glucose. Blood sugar improved. Hemoglobin A1c normal Multiple other medical problems as outlined by his past medical history Lovenox for DVT prophylaxis Full code Attestations Medical Necessity Statement*: Needs continued hospitalization for evaluation of chest discomfort with angiogram this morning. If intervention is needed he will likely need to be changed to inpatient admission Coding Level of Care Code Acute Resume Writer for [facility] Diagnoses Chest pain R07.9 Chest pain type: unspecified CAD (coronary artery disease) I25.10 Atrial fibrillation I48.20 Atrial fibrillation type: unspecified chronic Essential hypertension I10 Chronic kidney disease (CKD) N18.31 Chronic kidney disease stage: stage 3 (moderate) Chronic kidney disease stage 3 subtype: stage 3a (GFR 45-59)
--- NOTE | 2020-03-16 10:46 | PC.NURSE ---
to cardiac cath lab radiological technologist at 0942
[2020-03-16 14:10] LABS: Partial Thromboplastin Time 108.7 SECONDS (23.9-36.7)
--- NOTE | 2020-03-16 16:16 | P.PN_ITS ---
Subjective Subjective: Interval history: Patient has been having back pain and chest discomfort along with the left shoulder pain. Patient underwent coronary angiography today. It showed moderate left main disease and moderate to severe left circumflex disease. FFR was performed for both left main into LAD and left main into left circumflex. All FFR values were nonischemic. Vitals/I&O/Wt Last Vital Signs Temp 98.0 F 03/16/20 07:10 Pulse 64 03/16/20 07:10 Resp 16 03/16/20 07:10 BP 166/76 03/16/20 07:10 Pulse Ox 95 03/16/20 07:10 03/16/20 03/16/20 03/16/20 06:59 14:59 22:59 Intake Total 400 / 640 240 / 240 Output Total 200 / 200 900 / 900 Balance 200 / 440 -660 / -660 Weight last 48 hrs Weight 145 lb Physical Exam Narrative: EXAM NARRATIVE: GENERAL: Patient is alert, awake and oriented x3. [] NECK: No jugular vein distension. [] HEENT: No cyanosis. No icterus. No pallor. [] HEART: Regular S1 and S2. No murmur, rub or gallop. [] LUNGS: Clear to auscultate bilaterally. [] ABDOMEN: Soft, nontender and nondistended. Positive bowel sounds. No guarding, rebound or tenderness. [] CENTRAL NERVOUS SYSTEM: Grossly nonfocal. [] EXTREMITIES: Lower extremities with no edema bilaterally. Pulses palpable in the lower extremities, both dorsalis pedis and posterior tibial. [] Data : 03/17/20 04:00 03/17/20 04:00 A&P Assessment and plan (1) Chest pain: Patient's pain is more in left shoulder and back. Patient underwent coronary angiography with FFR of left main and left circumflex disease. FFR was negative for left main and left circumflex disease. No severe stenosis was found. Continue aspirin. We will uptitrate dose of Imdur to 120 mg daily. Patient will stay in the hospital overnight because of anticoagulation given during the procedure and femoral sheath in place. Likely discharge tomorrow. Status: Acute Qualifiers: Chest pain type: unspecified Qualified Code(s): R07.9 - Chest pain, unspecified (2) CAD (coronary artery disease): Last angiogram April 2018 demonstrating multivessel disease as outlined in HPI Aspirin, statin will continue. Metoprolol has been added Status: Acute (3) Atrial fibrillation: Currently in sinus rhythm, on amiodarone Eliquis can be restarted. Status: Acute (4) Essential hypertension: Continue home meds Status: Acute (5) Chronic kidney disease (CKD): Follow closely. Renal function at baseline today. Status: Acute Attestations Medical Necessity Statement*: Care expected to cross 2 midnights. Coding Level of Care Code Acute Airfield Defence Guard for [facility] Diagnoses Chest pain R07.9 Chest pain type: unspecified CAD (coronary artery disease) I25.10 Atrial fibrillation I48.91 Essential hypertension I10 Chronic kidney disease (CKD) N18.9
--- NOTE | 2020-03-16 17:23 | PC.NURSE ---
received from cardiac landscaping and groundskeeping laborer at 1125.alert and awake.report received.sr on monitor.denies pain at present.right wrist with tr band on and inflated.right hand is warm to touch and with brisk capillary refill.no hematoma noted.palpable radial pulse noted distal to tr band.right groin with arterial sheath intact to pressurized system.drsg is dry and intact.no hematoma noted.right leg is warm to touch and with brisk capillary refill.palpable dp pulse noted.instructed pt in activity restrictions s/p right radial and femoral artery procedures...and instructed to notify staff for any bleeding,pain,numbness...or for any concerns at all.pt verb understanding of instructions
[2020-03-16 17:29] LABS: Partial Thromboplastin Time 33.1 SECONDS (23.9-36.7)
[2020-03-16] MEDS: isosorbide mononitrate ER 60 mg Tablet PO (18:04)
[2020-03-16] MEDS: fentaNYL 50 mcg/mL INJ 2mL IVP (18:10)
--- NOTE | 2020-03-16 18:43 | PC.NURSE ---
right wrist tr band was slowly deflated and finally removed at 1814.right hand remains warm to touch and with brisk capillary refill.right radial pulse 3+ and regular.no hematoma noted.site dressed with 2x2 guaze and secured with biocclusive drsg.right femoral arterial sheath removed at 1814 after 50 mcgs of fentanyl given iv push.manual pressure applied for 20 min.palpable right dp pulse noted.right leg warm to touch.no hematoma noted.site dressed with 2x2 gauze and secured with biocclusive drsg.pt instructed in activity restrictions s/p right radial and right femoral site procedures ...and instructed to notify staff for any bleeding,numbness,pain..or for any concerns at all.pt verb understanding of instructions.
[2020-03-16] MEDS: morphine 4 mg/mL SDV 1 mL 2 MG IVP (20:34)
--- NOTE | 2020-03-16 21:14 | PC.NURSE ---
NURSING NOTE: PT ALERT AND ORIENTED X4. MOVES ALL EXTREMITIES AND FOLLOWS COMMANDS. RIGHT GROIN SITE DRESSING CLEAN, DRY, AND INTACT. PT DENIES PAIN AT SITE. RIGHT RADIAL SITE DRESSING CLEAN, DRY, AND INTACT. NO DRAINAGE NOTED TO EITHER SITE. ALL VS AND ASSESSMENTS CHARTED. NO DISTRESS NOTED AT THIS TIME.
[2020-03-17] VITALS (21 sets, daily range): BP systolic 117–154; BP diastolic 51–59; PULSE 52–63; RESP 4–25; TEMP 37.1; O2SAT 92–96
--- NOTE | 2020-03-17 00:47 | PC.NURSE ---
NURSE NOTE: POST SHEATH REMOVAL/6HRS PT UP TO AMBULATE IN ROOM AT 0040/6HRS POST SHEATH REMOVAL. DENIES DIZZINESS, PAIN OR DISCOMFORT OF ANY KIND. GAIT STEADY. RIGHT GROIN SITE DRESSING REMAINS CLEAN, DRY AND INTACT/NO DRAINAGE NOTED. ALL VS AND ASSESSMENTS CHARTED. WILL CONTINUE TO MONITOR.
[2020-03-17 04:50] LABS: Basophils % 0.3 %; Eosinophils # 0.2 10^3/uL (0.0-0.8); Eosinophils % 1.7 %; Hematocrit 39.9 % (42.0-52.0); Lymphocytes # 2.2 10^3/uL (0.8-4.8); Lymphocytes % 19.2 %; Mean Corpuscular HGB Conc 32.6 g/dL (30.0-36.0); Mean Corpuscular Hemoglobin 30.7 pg (28.0-34.0); Mean Corpuscular Volume 94.1 fL (80-94); Mean Platelet Volume 10.3 fL (7.4-10.4); Monocytes % 8.3 %; Neutrophils # 8.01 10^3/uL (1.8-7.7); Neutrophils % 69.9 %; Nucleated Red Blood Cells % 0 %; Platelet Count 206 10^3/cmm (130-400); Red Blood Count 4.24 10^6/uL (4.1-5.3); Red Cell Distribution Width 14.6 % (12.1-15.1); White Blood Count 11.5 10^3/uL (4.0-10.0)
[2020-03-17 05:10] LABS: Alanine Aminotransferase 15 U/L (0-41); Albumin Level 3.1 g/dL (3.5-5.2); Alkaline Phosphatase 70 IU/L (40-130); Anion Gap 12.7 (5-19); Aspartate Amino Transferase 17 U/L (0-40); Blood Urea Nitrogen 27 mg/dL (8-23); Calcium 8.4 mg/dL (8.5-10.5); Carbon Dioxide 26 mmol/L (22-29); Chloride 104 mmol/L (98-107); Globulin 3.5 g/dL (1.3-4.6); Glucose 90 mg/dL (65-115); Osmolality Calculated 293 mOsm/kg (285-295); Potassium 3.7 mmol/L (3.5-5.1); Sodium 139 mmol/L (136-145); Total Bilirubin 0.6 mg/dL (0.15-1.2); Total Protein 6.6 g/dL (6.6-8.7)
[2020-03-17] MEDS: amlodipine 5 mg Tablet 2.5 MG PO (08:33)
[2020-03-17] MEDS: isosorbide mononitrate ER 60 mg Tablet PO (08:33)
[2020-03-17] MEDS: metoprolol tartrate 25 mg Tablet PO (08:33)
[2020-03-17] MEDS: aspirin 81 mg EC Tablet PO (08:33)
[2020-03-17] MEDS: atorvastatin 40 mg Tablet PO (08:33)
[2020-03-17] MEDS: pantoprazole DR 40 mg Tablet PO (08:33)
[2020-03-17] MEDS: amiodarone 200 mg Tablet PO (08:33)
--- NOTE | 2020-03-17 09:06 | PC.CHAP ---
Pastoral Care Encounter/Spiritual Assessment Type of Contact [] Declined mgmt consultant visit [] Patient/Family/Request visit [] Outpatient visit [] Follow-up visit [] Physician referral [] Code/Alert [X] Routine visit [] Staff referral [] Actively dying [] Patient sleeping [] Family support [] [] Out of room [] Palliative care [] [] Receiving care in room [] Pre-surgical visit [] Trauma [] Long length of stay [] ICU visit [] Other: Relational/Emotional Strength [] Patient feels connected with others/family/visitors/staff [] Distress [] Loneliness/isolation [] Abandonment Spirituality of Patient [] Person of Radha [] Attends Orthodoxy of their Radha [] Believes in Prayer [] Reads Bible or Yazidi materials [] There are Spiritual issues to be addressed [employer]ocker Interventions [] Prayer [] Active listening [] Non-anxious presence [] Spiritual/emotional support [] Crisis/trauma care [] Spiritual counseling [] Bereavement support [] Provided bereavement packet [] Provided Bible/devotional materials [] Provided toy/stuffed animal, coloring book to patient or family member [] Provided Communion [] Anointing/[place] [] Salvation [] Completed spiritual assessment [] Other: Impact on Illness or Injury [] Angry [] Fearful [] Anxious [] Often cries [] Exhaustion [] Unable to work [] Unable to attend islam [] Unable to walk/stand [] Unable to read [] Unable to drive [] Unable to eat/drink [] Unable to sleep [] Unable to be with family [] Patient intubated [] Other: Summary Time spent with patient
--- NOTE | 2020-03-17 09:38 | PM.PN ---
Subjective Subjective: Interval history: Patient is overall doing well. His femoral artery access site is normal. He denies any chest pain. His main complaint is back pain especially after laying down flat yesterday. Vitals/I&O/Wt Last Vital Signs Temp 98.7 F 03/17/20 07:06 Pulse 60 03/17/20 07:06 Resp 15 03/17/20 07:06 BP 122/57 03/17/20 07:06 Pulse Ox 95 03/17/20 07:06 03/16/20 03/17/20 03/17/20 22:59 06:59 14:59 Intake Total 1240 / 1480 360 / 360 Output Total 600 / 1500 450 / 1950 225 / 225 Balance 640 / -20 -450 / -470 135 / 135 Weight last 48 hrs Weight 145 lb Physical Exam Narrative: EXAM NARRATIVE: GENERAL: Patient is alert, awake and oriented x3. [] NECK: No jugular vein distension. [] HEENT: No cyanosis. No icterus. No pallor. [] HEART: Regular S1 and S2. No murmur, rub or gallop. [] LUNGS: Clear to auscultate bilaterally. [] ABDOMEN: Soft, nontender and nondistended. Positive bowel sounds. No guarding, rebound or tenderness. [] CENTRAL NERVOUS SYSTEM: Grossly nonfocal. [] EXTREMITIES: Lower extremities with no edema bilaterally. Pulses palpable in the lower extremities, both dorsalis pedis and posterior tibial. [] Data : 03/17/20 04:00 03/17/20 04:00 A&P Assessment and plan (1) Chest pain: Patient's pain is more in left shoulder and back. Patient underwent coronary angiography with FFR of left main and left circumflex disease. FFR was negative for left main and left circumflex disease. No severe stenosis was found. Continue aspirin. We will uptitrate dose of Imdur to 120 mg daily. Is ready to be discharged from cardiology standpoint today. Status: Acute Qualifiers: Chest pain type: unspecified Qualified Code(s): R07.9 - Chest pain, unspecified (2) CAD (coronary artery disease): Last angiogram April 2018 demonstrating multivessel disease as outlined in HPI Aspirin, statin will continue. Metoprolol has been added Status: Acute (3) Atrial fibrillation: Currently in sinus rhythm, on amiodarone Eliquis can be restarted. Status: Acute (4) Essential hypertension: Continue home meds Status: Acute (5) Chronic kidney disease (CKD): Follow closely. Renal function at baseline today. Status: Acute Attestations Medical Necessity Statement*: Care expected to cross 2 midnights. Coding Level of Care Code Acute Business Continuity Planner for [employer] Diagnoses Chest pain R07.9 Chest pain type: unspecified CAD (coronary artery disease) I25.10 Atrial fibrillation I48.91 Essential hypertension I10 Chronic kidney disease (CKD) N18.9
--- NOTE | 2020-03-17 09:49 | PM.DCS ---
Discharge Providers Date of Admission: 03/16/20 14:12 Date of Discharge: March 17, 2020 Attending Provider at Admission: Syed Perales MD Attending Provider at Discharge: Syed Perales MD Primary Care Provider: Nikita Mosher MD Diagnoses at Discharge Discharge Diagnosis (1) Chest pain: Status: Acute Qualifiers: Chest pain type: unspecified Qualified Code(s): R07.9 - Chest pain, unspecified (2) CAD (coronary artery disease): Status: Acute (3) Atrial fibrillation: Status: Acute (4) Essential hypertension: Status: Acute (5) Chronic kidney disease (CKD): Status: Acute Reason for Visit Reason for Visit: Chest pains Hospital Course Hospital Course Isaac is an 79-year-old white male with known underlying coronary disease who presented with chest discomfort. Troponin was slightly elevated but not not have a significant delta. Nonspecific changes on EKG were noted. Echocardiogram demonstrated slightly reduced EF. Cardiology was consulted and believed angiogram was needed. Left main and circumflex disease were noted but no significant difference from previous angiogram. On FFR no severe stenosis was found. Therefore he was able to be discharged on March 17. Imdur was increased 220 mg. Physical Exam Narrative: EXAM NARRATIVE: General exam is no apparent distress Cardiovascular irregular, irregular without murmur Lungs clear Abdomen is soft with positive bowel sounds Extremities no cyanosis clubbing or edema, arterial puncture sites right groin and right wrist without any significant hematoma. Distal pulses right foot intact. Discharge Data Data Completed and Pending: Completed Studies During Hospitalization Category Date Time Status XR chest 1V joel ble [id number] Stat Exams 03/15/20 10:53 Completed CV echo complete* [id number] Routine Ultrasound 03/16/20 07:00 Completed Pending at discharge Category Date Time Status CS ASSOCIATE request for service Routin e Exams 03/16/20 09:21 Taken Labs from last 24 hours 03/17/20 03/17/20 03/16/20 04:00 04:00 16:58 WBC 11.5 H RBC 4.24 Hgb 13.0 Hct 39.9 L MCV 94.1 H MCH 30.7 MCHC 32.6 RDW 14.6 Plt Count 206 MPV 10.3 Neut % (Auto) 69.9 Lymph % (Auto) 19.2 [place] % (Auto) 8.3 Eos % (Auto) 1.7 Baso % (Auto) 0.3 Neut # (Auto) 8.01 H Lymph # (Auto) 2.2 [place] # (Auto) 1.0 H Eos # (Auto) 0.2 Baso # (Auto) 0.0 Nucleated RBC % (a uto) 0 Nucleated RBCs # 0.0 APTT 33.1 D Sodium 139 Potassium 3.7 Chloride 104 Carbon Dioxide 26 Anion Gap 12.7 BUN 27 H Creatinine 1.4 H GFR Calculation Not Reportable Glucose 90 Calculated Osmolal ity 293 Calcium 8.4 L Total Bilirubin 0.6 AST 17 ALT 15 Alkaline Phosphata se 70 Total Protein 6.6 Albumin 3.1 L Globulin 3.5 03/16/20 13:33 WBC RBC Hgb Hct MCV MCH MCHC RDW Plt Count MPV Neut % (Auto) Lymph % (Auto) [place] % (Auto) Eos % (Auto) Baso % (Auto) Neut # (Auto) Lymph # (Auto) [place] # (Auto) Eos # (Auto) Baso # (Auto) Nucleated RBC % (a uto) Nucleated RBCs # APTT 108.7 H Sodium Potassium Chloride Carbon Dioxide Anion Gap BUN Creatinine GFR Calculation Glucose Calculated Osmolal ity Calcium Total Bilirubin AST ALT Alkaline Phosphata se Total Protein Albumin Globulin Vitals: Last Vital Signs Temp 98.7 F 03/17/20 07:06 Pulse 60 03/17/20 07:06 Resp 15 03/17/20 07:06 BP 122/57 03/17/20 07:06 Pulse Ox 95 03/17/20 07:06 Discharge Plan Discharge Patient Disposition: Home Condition: Stable Prescriptions: New isosorbide mononitrate 120 mg tablet extended release 24 hr 120 mg PO DAILY Qty: 30 RF: 0 amlodipine 5 mg Tablet 2.5 mg PO DAILY Qty: 15 RF: 0 metoprolol tartrate 25 mg Tablet 25 mg PO BID@0900,2100 Qty: 60 RF: 0 Continued pantoprazole 40 mg tablet,delayed release (DR/EC) 40 mg PO BID@999,2099 RF: 0 amiodarone 200 mg tablet 100 mg PO DAILY@1000 RF: 0 Eliquis 5 mg tablet 2.5 mg PO BID@999,2099 RF: 0 saw palmetto 450 mg capsule 450 mg PO BID@999,2099 RF: 0 multivitamin [Multi-Vitamin] Tablet 1 tab PO DAILY@1000 RF: 0 atorvastatin 40 mg tablet 40 mg PO DAILY RF: 0 acetaminophen 500 mg Tablet 500 mg PO DAILY@1000 RF: 0 magnesium 250 mg Tablet 250 mg PO DAILY@1000 RF: 0 vitamin B complex 1 tab PO DAILY@1000 RF: 0 nitroglycerin 0.4 mg tablet, sublingual 0.4 mg sublingual Q5M PRN (Reason: chest pains) RF: 0 Aspir-Low 81 mg Tablet,Delayed Release (Dr/Ec) 81 mg PO DAILY@1000 RF: 0 Discontinued isosorbide mononitrate 60 mg tablet extended release 24 hr 60 mg PO DAILY@1000 RF: 0 amlodipine 5 mg tablet 5 mg PO DAILY@1000 RF: 0 doxycycline hyclate 100 mg capsule 100 mg PO BID@1000,2100 RF: 0 Discharge Orders: Discharge Order (Routine); Ordered 03/17/20 Ordered By: Syed Perales Referrals: Garcia Chaparro M.D [Physician] - 4-7 days (Nurse practitioner in cardiology clinic next week, Dr. Chaparro 2 to 3 weeks) Nikita Mosher MD [Primary Care Provider] - 4-7 days Discharge Diet: Cardiac Patient Instructions: Left Heart Catheterization (DC) Activity Restrictions/Additional Instructions: Return for any significant chest discomfort Discharge Attestations Time Spent in Discharge Care*: greater than 30 min Quality Metrics Clinical Quality Measures During this hospital stay, did patient experience: None Coding Level of Care Code Acute Director Of Infection Prevention for Eleazar Hargrove Diagnoses Chest pain R07.9 Chest pain type: unspecified CAD (coronary artery disease) I25.10 Atrial fibrillation I48.91 Essential hypertension I10 Chronic kidney disease (CKD) N18.9
--- NOTE | 2020-03-17 11:08 | PC.NURSE ---
DISCHARGE INSTRUCTIONS PROVIDED FOR PATIENT. NO QUESTIONS AT TIME OF DISCHARGE. SITES TO RIGHT WRIST AND RIGHT GROIN ASYMPTOMATIC.
== END 2020-03-17 11:07 | disposition home or self-care (01) | DRG 287 ==
LOC: ER 10:37 → CSU 15:46
PROVIDERS: Internal Medicine; Internal Medicine Cardiovascular Disease; Admitting Provider Internal Medicine; Emergency Provider Family Medicine; PCP Family Medicine; Visit Provider Internal Medicine
PROC: B2111ZZ Fluoroscopy of Multiple Coronary Arteries using Low Osmolar Contrast (ICD-10-PCS; principal; 2020-03-16 10:00)
DX: I25.110 Atherosclerotic heart disease of native coronary artery with unstable angina pectoris (principal); I48.20 Chronic atrial fibrillation, unspecified; I12.9 Hypertensive chronic kidney disease with stage 1 through stage 4 chronic kidney disease, or unspecified chronic kidney disease; N18.31 Chronic kidney disease, stage 3a; E78.5 Hyperlipidemia, unspecified; K21.9 Gastro-esophageal reflux disease without esophagitis; G62.9 Polyneuropathy, unspecified; G47.30 Sleep apnea, unspecified; Z86.73 Personal history of transient ischemic attack (TIA), and cerebral infarction without residual deficits; Z87.891 Personal history of nicotine dependence; I25.5 Ischemic cardiomyopathy; Z79.01 Long term (current) use of anticoagulants; Z79.82 Long term (current) use of aspirin
CPT/HCPCS: 12345; 36415; 71045; 80053; 83036; 84443; 84484; 85025; 85730; 93005; 93306; 93454; 93571; 93572; 96372; 99282; C1769; C1887; C1894; G0378; J0153; J1644; J1650; J2250; J2270; J3010; J3490; J7030; Q0163; Q9967

== ENCOUNTER 2020-03-19 13:41 | Emergency (ER) | payer MEDICARE, OTHER, SELFPAY ==
[2020-03-19] VITALS (9 sets, daily range): BP systolic 134–153; BP diastolic 66–87; PULSE 61–65; RESP 16–21; TEMP 36.3; O2SAT 94–96; BMI 22.0
--- NOTE | 2020-03-19 13:57 | CT_ITS ---
WS: [id number] Exam: CT chest abd pel w con* Date/Time of Exam: 03/19/2020 3:07 PM Reason For Exam: pain DLP: 1126.[address] scans at [facility] use at least one of these dose optimization techniques: automat ed exposure control; mA and/or kV adjustment per patient size (includes targeted exams where dose is matched to clinical indication); or iterative reconstruction. Comparison 03/12/2020. CT scan of the chest with IV contrast. Stable appearing groundglass densities are noted in the right lung which are likely chronic. The left lung is clear. The lungs are fully inflated. No pleural or pericardial effusion. No suspicious pulmo nary mass or nodule. The airway is patent. The thoracic aorta is normal in caliber. The central pulmo nary arteries are clear. No hilar, mediastinal or axillary lymphadenopathy. Coronary artery calcifica tions. There is hardware in the lower cervical spine. No destructive bone lesions are identified. CT/CT chest abd pel w con* IMPRESSION: 1. Mild groundglass densities noted in the right lung which show no change in a re likely chronic. 2. No consolidating infiltrate, mass or lymphadenopathy in the chest. CT scan of the abdomen and pelvis with IV contrast. The stomach, spleen, pancreas and gallbladder appear normal. The liver is not e nlarged. There is aneurysmal dilatation of the infrarenal abdominal aorta measu ring 3.7 cm at greatest diameter. No dissection or leakage. 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 The portal vein and IVC are patent. Unremarkable kidneys and adrenal glands. No free air. No lymphadenopathy. Small bowel loops are normal in caliber. Moderate amount of stool in the colon. No evidence of a cute appendix. Marked sigmoid diverticulosis but no sign of acute diverticuliti s. No mass or adenopathy in the pelvis. Intact urinary bladder. No destructive bone lesions. Tiny fat filled periumbilical hernia. IMPRESSION: 1. No mass, lymphadenopathy or acute finding. 2. 3.7 cm infrarenal abdominal aortic aneurysm without dissection or leakage. 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 3. Sigmoid diverticulosis but no sign of acute diverticulitis.
[2020-03-19 14:41] LABS: Basophils % 0.4 %; Eosinophils # 0.3 10^3/uL (0.0-0.8); Eosinophils % 3.3 %; Hematocrit 35.9 % (42.0-52.0); Hemoglobin 11.9 g/dL (11.7-16.6); Lymphocytes # 1.3 10^3/uL (0.8-4.8); Lymphocytes % 14.5 %; Mean Corpuscular HGB Conc 33.1 g/dL (30.0-36.0); Mean Corpuscular Hemoglobin 31.1 pg (28.0-34.0); Mean Corpuscular Volume 93.7 fL (80-94); Mean Platelet Volume 10.7 fL (7.4-10.4); Monocytes # 0.8 10^3/uL (0.2-0.9); Monocytes % 8.3 %; Neutrophils # 6.74 10^3/uL (1.8-7.7); Neutrophils % 73.1 %; Nucleated Red Blood Cells % 0 %; Platelet Count 184 10^3/cmm (130-400); Red Blood Count 3.83 10^6/uL (4.1-5.3); Red Cell Distribution Width 14.6 % (12.1-15.1); White Blood Count 9.2 10^3/uL (4.0-10.0)
[2020-03-19 14:41] LABS: Add Urine Microscopic? NO
[2020-03-19] MEDS: morphine 4 mg/mL SDV 1 mL IVP (14:44)
[2020-03-19 14:58] LABS: Alanine Aminotransferase 16 U/L (0-41); Albumin Level 3.5 g/dL (3.5-5.2); Alkaline Phosphatase 70 IU/L (40-130); Anion Gap 12.8 (5-19); Aspartate Amino Transferase 19 U/L (0-40); Blood Urea Nitrogen 24 mg/dL (8-23); Calcium 8.4 mg/dL (8.5-10.5); Carbon Dioxide 24 mmol/L (22-29); Chloride 106 mmol/L (98-107); Globulin 3.4 g/dL (1.3-4.6); Glucose 154 mg/dL (65-115); Lipase 25 U/L (13-60); Osmolality Calculated 295 mOsm/kg (285-295); Potassium 3.8 mmol/L (3.5-5.1); Sodium 139 mmol/L (136-145); Total Bilirubin 0.4 mg/dL (0.15-1.2); Total Protein 6.9 g/dL (6.6-8.7)
[2020-03-19 14:58] LABS: Glucose Urine UA Norm (Normal); Protein Urine Neg (Negative); Specific Gravity, Urine 1.005 (1.005-1.030); Urine Appearance Clear (CLEAR); Urine Color Yellow (Yellow); pH Urine 6 (5-7)
[2020-03-19 14:59] LABS: Troponin T (5th) Once 65 ng/L (0-15)
[2020-03-19 14:59] LABS: Bilirubin Urine Neg (Negative); Blood Urine Neg (Negative); Ketones Urine Negative (Negative); Leukocyte Esterase Urine Negative (Negative); Nitrate Urine Negative (Negative); Urobilinogen Urine Norm (Negative)
--- NOTE | 2020-03-19 15:16 | ECG_ITS ---
[facility] Test Date: 2020-03-19 Pat Name: Isaac Blanco Department: Room: Gender: Male Compounder: : 1940 Requested By: Hetal Tran Order Number: [id number] Radha MD: Garcia Chaparro M.D. Measurements Intervals [place] Rate: 62 P: 71 CO: 204 QRS: 18 QRSD: 112 T: -83 QT: 449 QTc: 458 Interpretive Statements SINUS RHYTHM MODERATE INTRAVENTRICULAR CONDUCTION DELAY [110+ ms QRS DURATION] ST DEVIATION AND MODERATE T-WAVE ABNORMALITY, CONSIDER INFERIOR ISCHEMIA [-0.1+ mV T WAVE IN II/aVF] Compared to ECG 03/16/2020 02:42:28 No significant changes Electronically Signed On 03-19-2020 18:23:33 HEEL TURNER by Garcia Chaparro M.D. [id number]
[2020-03-19] MEDS: iodixanol 320 mg/mL 100mL Btl IV (15:27)
--- NOTE | 2020-03-19 16:18 | W.ED.BACK ---
Documented by User: Hetal Leeroynoelle 03/19/20 17:08 HPI - Back Pain/Injury General: Chief Complaint: Back Pain/Injury Stated Complaint: back pain/chest pain Time Seen by Provider: 03/19/20 13:57 Source: patient Mode of arrival: ambulatory Limitations: no limitations History of Present Illness: HPI Narrative: 79 yo male patient presents with upper back pain that radiates to his chest. Pt states this pain has been intermittent x 1 month and he just did an angio last week that was normal but the pain keeps coming back. He dienies any injury or trauma. denies SOB denies fever. denies abd pain nausea,vomiting or diarrhea. Quality: dull and throbbing Location: left lower back Radiation: chest Exacerbating factors: none Relieving factors: none Associated symptoms: Deny abdominal pain, arthralgias, chills, change in bowel habits, difficulty walking, dysuria, fatigue, fecal incontinence, fever(s), hematuria, myalgias, nausea, numbness, syncope, tingling/numbness/burning, urinary frequency, urinary urgency, vomiting, weakness or other Review of Systems Const: Denies: fever(s), chills or fatigue Eyes: Denies: change in vision, blurry vision, blind spots, photophobia, eye discomfort, eye discharge, eye redness, floaters or seeing flashes ENMT: Denies: throat pain, uvular edema, enlarged tonsils, odynophagia, hoarseness, mouth pain, swelling of lips/tongue, oral sores, bleeding gums, dental pain, dry mouth, ear or mastoid pain, ear discharge, change in hearing, tinnitus, disequilibrium, nasal discharge, nasal congestion, post nasal drip or sinus pain Card: Denies: syncope Resp: Denies: dyspnea, productive cough, non-productive cough, wheezing, stridor, pain on inspiration, change in phlegm color, hemoptysis or chest congestion GI: Denies: abdominal pain, nausea, vomiting, fecal incontinence or change in bowel habits : Denies: dysuria, urinary urgency or hematuria Musc: Denies: neck pain, back pain, extremity pain, extremity swelling, joint pain, joint swelling, joint redness, joint warmth or deformity Skin/Breast: Denies: rash, pruritus, erythema, sores, new lesions, changes in skin color or dry skin Neuro: Denies: difficulty walking Psych: Denies: anxiety, depression, suicidal ideation or homicidal ideation Endo: Denies: polyuria, polydipsia, tired all the time, cold intolerance, excessive sweating, flushing, hot flashes or heat intolerance Ever/Lymph: Denies: easy bruising, easy bleeding, petechiae, purpura, enlarged lymph nodes or tender lymph nodes All/Imm: Denies: urticaria, throat swelling, tongue swelling, facial swelling, acute wheezing or itchy eyes PFSH ED PFSH: Medical History Anticoagulation adequate with anticoagulant therapy 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 Atrial fibrillation CAD (coronary artery disease) Chronic kidney disease (CKD) Dyslipidemia Essential hypertension GERD (gastroesophageal reflux disease) Peripheral neuropathy Sleep apnea TIA (transient ischemic attack) Surgical History History of coronary angiogram History of neck surgery History of shoulder surgery History of surgery on wrist Family History Other Diabetes Denies family history of Cancer Social History Smoking and tobacco status: former smoker Alcohol intake: never Household members: spouse Marital status: Current occupational status: retired Physical Exam Const: COMMON NORMALS: no acute distress, patient oriented x3, healthy appearing, alert and well nourished GENERAL APPEARANCE: cooperative, comfortable, well kempt and well developed; not ill appearing ORIENTATION/CONSCIOUSNESS: Yes awake, Yes oriented to person, Yes oriented to place and Yes oriented to time HENMT: COMMON NORMALS: normocephalic, atraumatic, hearing grossly normal bilaterally, external ears normal, EAC's normal, Normal external nose present and moist oral mucous membranes HEAD & SCALP: normal to inspection, normocephalic and atraumatic FACE & SINUS: normal facial exam, sinuses nontender and face symmetric NOSE: Normal external nose present, Normal nares present and No nasal discharge present EXTERNAL EAR: Yes external ears normal and Yes mastoids normal EXTERNAL AUDITORY CANAL: EAC's normal MOUTH: Normal oral and palatal mucosa present, lip normal, tongue normal and Normal salivary glands and ducts present THROAT: no uvular edema Eye: COMMON NORMALS: Equal, round and reactive pupils present, EOMs intact bilaterally, conjunctivae normal and no scleral icterus GENERAL EYE: appearance normal, both eyes and all related structures EYELID: eyelids normal CONJUNCTIVA: Yes conjunctivae normal SCLERA: sclerae normal CORNEA: Yes corneas normal PUPIL: Yes Equal, round and reactive pupils present Neck/C-Spine: COMMON NORMALS: full ROM, no lymphadenopathy, supple, no meningeal signs, no JVD and Thyroid normal GENERAL: Yes normal visual inspection and Yes trachea midline THYROID: Thyroid normal CERVICAL SPINE: Yes cervical ROM normal Lymph: LYMPHATIC: no lymphadenopathy noted and no lymphedema noted Chest: COMMONS NORMALS: normal inspection of the chest and normal palpation of entire chest wall Resp: COMMON NORMALS: normal respiratory effort, No retractions, No use of accessory muscles and clear to auscultation bilaterally EFFORT & INSPECTION: Yes able to speak in complete sentences and Yes symmetric chest movement AUSCULTATION: clear to auscultation bilaterally Cardio: COMMON NORMALS: no JVD, regular rate and regular rhythm RATE: regular rate RHYTHM: regular rhythm GI: COMMON NORMALS: Normal to inspection, nondistended, normoactive bowel sounds present, Soft to palpation, non-tender, No hepatosplenomegaly present, no masses and no bruits INSPECTION: Yes normal to inspection AUSCULTATION: Yes normoactive bowel sounds PALPATION: Yes Soft to palpation and Yes No hepatosplenomegaly present PERCUSSION: normal to percussion RECTAL EXAM: Yes deferred : COMMON NORMALS: Yes no CVA tenderness BLADDER/KIDNEY EXAM: Yes no CVA tenderness Back/Pelvis: COMMON NORMALS: no CVA tenderness, thoracic and lumbar spine normal to inspection, no thoracic nor lumbar tenderness, thoraco-lumbar ROM normal and straight leg raise negative bilaterally THORACIC SPINE/UPPER BACK: Yes normal to inspection LUMBAR SPINE/LOWER BACK: Yes normal to inspection Extremity: COMMON NORMALS: normal to inspection, full ROM and capillary refill normal GENERAL: Yes normal exam except as noted Neuro: COMMON NORMALS: patient oriented x3, CN's II-XII intact bilaterally, moves all extremities, no focal motor deficits, no sensory deficits noted and gait normal SENSORIUM/ORIENTATION: Yes alert, Yes oriented to person, Yes oriented to place and Yes oriented to time MENINGEAL SIGNS: Yes no meningeal signs CRANIAL NERVES: Yes CN normal except as noted SPEECH: speech normal GAIT: Yes Normal gait present SENSORY EXAM: Yes extremities MOTOR EXAM: 5/5 motor strength present throughout Psych: COMMON NORMALS: mental status grossly normal, Normal thought process present, cooperative, normal affect, speech normal, activity/motor behavior normal, denies hallucinations, denies homicidal ideation and denies suicidal ideation APPEARANCE: Yes grossly normal and Yes well kempt ATTITUDE: Yes calm ACTIVITY/MOTOR BEHAVIOR: Yes appropriate eye contact SPEECH: Yes normal speech THOUGHT PROCESS: Normal thought process present THOUGHT CONTENT: Yes Normal thought content present ATTENTION/CONCENTRATION: Yes attention grossly intact MEMORY/COGNITION: Yes memory grossly intact INSIGHT: Good insight present (Psych) JUDGEMENT: Good judgement present (Psych) Skin: COMMON NORMALS: no rashes or lesions noted, no wounds, turgor normal, no jaundice, no petechiae and no mottling GENERAL SKIN EXAM: no rashes or lesions noted and turgor normal Course ED course: Case discussed and staffed [facility] Dr. Pereira Care transitioned to Franssico Epstein at this time Vital Signs: Vital signs: Vital Signs Temperature 97.3 F L 03/19/20 13:57 Pulse Rate 62 03/19/20 18:47 Respiratory Rate 16 03/19/20 18:47 Blood Pressure 153/71 03/19/20 18:47 Pulse Oximetry 94 03/19/20 18:47 MDM - Back Pain/Injury Lab Data: Labs: Lab Results 03/19/20 03/19/20 03/19/20 Range/Units 14:25 14:25 14:25 WBC 9.2 (4.0-10.0) 10^3/ uL RBC 3.83 L (4.1-5.3) 10^6/u L Hgb 11.9 (11.7-16.6) g/dL Hct 35.9 L (42.0-52.0) % MCV 93.7 (80-94) fL MCH 31.1 (28.0-34.0) pg MCHC 33.1 (30.0-36.0) g/dL RDW 14.6 (12.1-15.1) % Plt Count 184 (130-400) 10^3/c mm MPV 10.7 H (7.4-10.4) fL Neut % (Auto) 73.1 % Lymph % (Auto) 14.5 % Esmeralda % (Auto) 8.3 % Eos % (Auto) 3.3 % Baso % (Auto) 0.4 % Neut # (Auto) 6.74 (1.8-7.7) 10^3/u L Lymph # (Auto) 1.3 (0.8-4.8) 10^3/u L Esmeralda # (Auto) 0.8 (0.2-0.9) 10^3/u L Eos # (Auto) 0.3 (0.0-0.8) 10^3/u L Baso # (Auto) 0.0 (0.0-0.1) 10^3/u L Nucleated RBC % (a uto) 0 % Nucleated RBCs # 0.0 /100WBC PT (12.1-14.9) SECO NDS INR (0.8-1.2) APTT (23.9-36.7) SECO NDS Sodium 139 (136-145) mmol/L Potassium 3.8 (3.5-5.1) mmol/L Chloride 106 (98-107) mmol/L Carbon Dioxide 24 (22-29) mmol/L Anion Gap 12.8 (5-19) BUN 24 H (8-23) mg/dL Creatinine 1.4 H (0.7-1.2) mg/dL GFR Calculation Not Reportable Glucose 154 H (65-115) mg/dL Calculated Osmolal ity 295 (285-295) mOsm/k g Calcium 8.4 L (8.5-10.5) mg/dL Total Bilirubin 0.4 (0.15-1.2) mg/dL AST 19 (0-40) U/L ALT 16 (0-41) U/L Alkaline Phosphata se 70 (40-130) IU/L Troponin T Gen 5 n g/L 65 H (0-15) ng/L Total Protein 6.9 (6.6-8.7) g/dL Albumin 3.5 (3.5-5.2) g/dL Globulin 3.4 (1.3-4.6) g/dL Lipase 25 (13-60) U/L Urine Color (Yellow) Urine Appearance (CLEAR) Urine pH (5-7) Ur Specific Gravit y (1.005-1.030) Urine Protein (Negative) Urine Glucose (UA) (Normal) Urine Ketones (Negative) Urine Blood (Negative) Urine Nitrate (Negative) Urine Bilirubin (Negative) Urine Urobilinogen (Negative) mg/dL Ur Leukocyte Ursula ase (Negative) 03/19/20 03/19/20 03/19/20 Range/Units 14:25 14:32 16:08 WBC (4.0-10.0) 10^3/ uL RBC (4.1-5.3) 10^6/u L Hgb (11.7-16.6) g/dL Hct (42.0-52.0) % MCV (80-94) fL MCH (28.0-34.0) pg MCHC (30.0-36.0) g/dL RDW (12.1-15.1) % Plt Count (130-400) 10^3/c mm MPV (7.4-10.4) fL Neut % (Auto) % Lymph % (Auto) % Esmeralda % (Auto) % Eos % (Auto) % Baso % (Auto) % Neut # (Auto) (1.8-7.7) 10^3/u L Lymph # (Auto) (0.8-4.8) 10^3/u L Esmeralda # (Auto) (0.2-0.9) 10^3/u L Eos # (Auto) (0.0-0.8) 10^3/u L Baso # (Auto) (0.0-0.1) 10^3/u L Nucleated RBC % (a uto) % Nucleated RBCs # /100WBC PT 15.80 H (12.1-14.9) SECO NDS INR 1.22 H (0.8-1.2) APTT 39.4 H (23.9-36.7) SECO NDS Sodium (136-145) mmol/L Potassium (3.5-5.1) mmol/L Chloride (98-107) mmol/L Carbon Dioxide (22-29) mmol/L Anion Gap (5-19) BUN (8-23) mg/dL Creatinine (0.7-1.2) mg/dL GFR Calculation Glucose (65-115) mg/dL Calculated Osmolal ity (285-295) mOsm/k g Calcium (8.5-10.5) mg/dL Total Bilirubin (0.15-1.2) mg/dL AST (0-40) U/L ALT (0-41) U/L Alkaline Phosphata se (40-130) IU/L Troponin T Gen 5 n g/L 69 H (0-15) ng/L Total Protein (6.6-8.7) g/dL Albumin (3.5-5.2) g/dL Globulin (1.3-4.6) g/dL Lipase (13-60) U/L Urine Color Yellow (Yellow) Urine Appearance Clear (CLEAR) Urine pH 6 (5-7) Ur Specific Gravit y 1.005 (1.005-1.030) Urine Protein Neg (Negative) Urine Glucose (UA) Norm (Normal) Urine Ketones Negative (Negative) Urine Blood Neg (Negative) Urine Nitrate Negative (Negative) Urine Bilirubin Neg (Negative) Urine Urobilinogen Norm (Negative) mg/dL Ur Leukocyte Ursula ase Negative (Negative) 03/19/20 Range/Units 18:04 WBC (4.0-10.0) 10^3/ uL RBC (4.1-5.3) 10^6/u L Hgb (11.7-16.6) g/dL Hct (42.0-52.0) % MCV (80-94) fL MCH (28.0-34.0) pg MCHC (30.0-36.0) g/dL RDW (12.1-15.1) % Plt Count (130-400) 10^3/c mm MPV (7.4-10.4) fL Neut % (Auto) % Lymph % (Auto) % Esmeralda % (Auto) % Eos % (Auto) % Baso % (Auto) % Neut # (Auto) (1.8-7.7) 10^3/u L Lymph # (Auto) (0.8-4.8) 10^3/u L Esmeralda # (Auto) (0.2-0.9) 10^3/u L Eos # (Auto) (0.0-0.8) 10^3/u L Baso # (Auto) (0.0-0.1) 10^3/u L Nucleated RBC % (a uto) % Nucleated RBCs # /100WBC PT (12.1-14.9) SECO NDS INR (0.8-1.2) APTT (23.9-36.7) SECO NDS Sodium (136-145) mmol/L Potassium (3.5-5.1) mmol/L Chloride (98-107) mmol/L Carbon Dioxide (22-29) mmol/L Anion Gap (5-19) BUN (8-23) mg/dL Creatinine (0.7-1.2) mg/dL GFR Calculation Glucose (65-115) mg/dL Calculated Osmolal ity (285-295) mOsm/k g Calcium (8.5-10.5) mg/dL Total Bilirubin (0.15-1.2) mg/dL AST (0-40) U/L ALT (0-41) U/L Alkaline Phosphata se (40-130) IU/L Troponin T Gen 5 n g/L 67 H (0-15) ng/L Total Protein (6.6-8.7) g/dL Albumin (3.5-5.2) g/dL Globulin (1.3-4.6) g/dL Lipase (13-60) U/L Urine Color (Yellow) Urine Appearance (CLEAR) Urine pH (5-7) Ur Specific Gravit y (1.005-1.030) Urine Protein (Negative) Urine Glucose (UA) (Normal) Urine Ketones (Negative) Urine Blood (Negative) Urine Nitrate (Negative) Urine Bilirubin (Negative) Urine Urobilinogen (Negative) mg/dL Ur Leukocyte Ursula ase (Negative) Discharge Plan Discharge Patient Disposition: Home Clinical Impression: Back pain Qualifiers: Back pain location: back pain in unspecified location Chronicity: unspecified Back pain laterality: unspecified Qualified Code(s): M54.9 - Dorsalgia, unspecified Condition: Stable Prescriptions: New tramadol 50 mg tablet 50 mg PO Q8H PRN (Reason: pain) Qty: 15 RF: 0 No Action pantoprazole 40 mg tablet,delayed release (DR/EC) 40 mg PO BID@1000,2100 RF: 0 amiodarone 200 mg tablet 100 mg PO DAILY@1000 RF: 0 Eliquis 5 mg tablet 2.5 mg PO BID@1000,2100 RF: 0 saw palmet[place] 450 mg capsule 450 mg PO BID@999,2099 RF: 0 multivitamin Tablet 1 tab PO DAILY@1000 RF: 0 atorvastatin 40 mg tablet 40 mg PO DAILY RF: 0 acetaminophen 500 mg Tablet 500 mg PO DAILY@1000 RF: 0 magnesium 250 mg Tablet 250 mg PO DAILY@1000 RF: 0 vitamin B complex 1 tab PO DAILY@1000 RF: 0 nitroglycerin 0.4 mg tablet, sublingual 0.4 mg sublingual Q5M PRN (Reason: chest pains) RF: 0 aspirin 81 mg Tablet,Delayed Release (Dr/Ec) 81 mg PO DAILY@1000 RF: 0 amlodipine 5 mg Tablet 2.5 mg PO DAILY Qty: 15 RF: 0 metoprolol tartrate 25 mg Tablet 25 mg PO BID@0900,2100 Qty: 60 RF: 0 isosorbide mononitrate 120 mg tablet extended release 24 hr 120 mg PO DAILY Qty: 30 RF: 0 Discharge Orders: Discharge ED (Routine); Ordered 03/19/20 Ordered By: Deondre Epstein Referrals: Nikita Mosher MD [Primary Care Provider] - Discharge Diet: Usual diet Discharge Activity: Increase activity as tolerated Patient Instructions: Back Pain (ED) Activity Restrictions/Additional Instructions: Activity as tolerated. Gentle stretching and range of motion exercises. Drink plenty of water with medication. Follow-up with Dr. Mosher on Sunday for further evaluation and treatment. Return to the emergency department for new concerns. 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 Atrial fibrillation CAD (coronary artery disease) Chronic kidney disease (CKD) Dyslipidemia Essential hypertension GERD (gastroesophageal reflux disease) Peripheral neuropathy Sleep apnea TIA (transient ischemic attack) Surgical History History of coronary angiogram History of neck surgery History of shoulder surgery History of surgery on wrist Family History Other Diabetes Denies family history of Cancer Social History Smoking and tobacco status: former smoker Alcohol intake: never Household members: spouse Marital status: Current occupational status: retired Course Vital Signs: Vital signs: Vital Signs Temperature 97.3 F L 03/19/20 13:57 Pulse Rate 62 03/19/20 18:47 Respiratory Rate 16 03/19/20 18:47 Blood Pressure 153/71 03/19/20 18:47 Pulse Oximetry 94 03/19/20 18:47 MDM - Back Pain/Injury MDM Narrative: Medical decision making narrative: I received this patient from Hetal Morrow. We were awaiting a third troponin level. Third troponin came back without any changes. Patient was given tramadol to help with his back pain. Patient reported no chest pain or shortness of breath during my care. Patient is to follow-up with Dr. Mosher on Sunday as scheduled appointment. He also has an appointment with Dr. Caraballo on Sunday. He will continue with those care plans and return to the emergency room for any new concerns. Lab Data: Labs: Lab Results 03/19/20 03/19/20 03/19/20 Range/Units 14:25 14:25 14:25 WBC 9.2 (4.0-10.0) 10^3/ uL RBC 3.83 L (4.1-5.3) 10^6/u L Hgb 11.9 (11.7-16.6) g/dL Hct 35.9 L (42.0-52.0) % MCV 93.7 (80-94) fL MCH 31.1 (28.0-34.0) pg MCHC 33.1 (30.0-36.0) g/dL RDW 14.6 (12.1-15.1) % Plt Count 184 (130-400) 10^3/c mm MPV 10.7 H (7.4-10.4) fL Neut % (Auto) 73.1 % Lymph % (Auto) 14.5 % Esmeralda % (Auto) 8.3 % Eos % (Auto) 3.3 % Baso % (Auto) 0.4 % Neut # (Auto) 6.74 (1.8-7.7) 10^3/u L Lymph # (Auto) 1.3 (0.8-4.8) 10^3/u L Esmeralda # (Auto) 0.8 (0.2-0.9) 10^3/u L Eos # (Auto) 0.3 (0.0-0.8) 10^3/u L Baso # (Auto) 0.0 (0.0-0.1) 10^3/u L Nucleated RBC % (a uto) 0 % Nucleated RBCs # 0.0 /100WBC PT (12.1-14.9) SECO NDS INR (0.8-1.2) APTT (23.9-36.7) SECO NDS Sodium 139 (136-145) mmol/L Potassium 3.8 (3.5-5.1) mmol/L Chloride 106 (98-107) mmol/L Carbon Dioxide 24 (22-29) mmol/L Anion Gap 12.8 (5-19) BUN 24 H (8-23) mg/dL Creatinine 1.4 H (0.7-1.2) mg/dL GFR Calculation Not Reportable Glucose 154 H (65-115) mg/dL Calculated Osmolal ity 295 (285-295) mOsm/k g Calcium 8.4 L (8.5-10.5) mg/dL Total Bilirubin 0.4 (0.15-1.2) mg/dL AST 19 (0-40) U/L ALT 16 (0-41) U/L Alkaline Phosphata se 70 (40-130) IU/L Troponin T Gen 5 n g/L 65 H (0-15) ng/L Total Protein 6.9 (6.6-8.7) g/dL Albumin 3.5 (3.5-5.2) g/dL Globulin 3.4 (1.3-4.6) g/dL Lipase 25 (13-60) U/L Urine Color (Yellow) Urine Appearance (CLEAR) Urine pH (5-7) Ur Specific Gravit y (1.005-1.030) Urine Protein (Negative) Urine Glucose (UA) (Normal) Urine Ketones (Negative) Urine Blood (Negative) Urine Nitrate (Negative) Urine Bilirubin (Negative) Urine Urobilinogen (Negative) mg/dL Ur Leukocyte Usrula ase (Negative) 03/19/20 03/19/20 03/19/20 Range/Units 14:25 14:32 16:08 WBC (4.0-10.0) 10^3/ uL RBC (4.1-5.3) 10^6/u L Hgb (11.7-16.6) g/dL Hct (42.0-52.0) % MCV (80-94) fL MCH (28.0-34.0) pg MCHC (30.0-36.0) g/dL RDW (12.1-15.1) % Plt Count (130-400) 10^3/c mm MPV (7.4-10.4) fL Neut % (Auto) % Lymph % (Auto) % Esmeralda % (Auto) % Eos % (Auto) % Baso % (Auto) % Neut # (Auto) (1.8-7.7) 10^3/u L Lymph # (Auto) (0.8-4.8) 10^3/u L Esmeralda # (Auto) (0.2-0.9) 10^3/u L Eos # (Auto) (0.0-0.8) 10^3/u L Baso # (Auto) (0.0-0.1) 10^3/u L Nucleated RBC % (a uto) % Nucleated RBCs # /100WBC PT 15.80 H (12.1-14.9) SECO NDS INR 1.22 H (0.8-1.2) APTT 39.4 H (23.9-36.7) SECO NDS Sodium (136-145) mmol/L Potassium (3.5-5.1) mmol/L Chloride (98-107) mmol/L Carbon Dioxide (22-29) mmol/L Anion Gap (5-19) BUN (8-23) mg/dL Creatinine (0.7-1.2) mg/dL GFR Calculation Glucose (65-115) mg/dL Calculated Osmolal ity (285-295) mOsm/k g Calcium (8.5-10.5) mg/dL Total Bilirubin (0.15-1.2) mg/dL AST (0-40) U/L ALT (0-41) U/L Alkaline Phosphata se (40-130) IU/L Troponin T Gen 5 n g/L 69 H (0-15) ng/L Total Protein (6.6-8.7) g/dL Albumin (3.5-5.2) g/dL Globulin (1.3-4.6) g/dL Lipase (13-60) U/L Urine Color Yellow (Yellow) Urine Appearance Clear (CLEAR) Urine pH 6 (5-7) Ur Specific Gravit y 1.005 (1.005-1.030) Urine Protein Neg (Negative) Urine Glucose (UA) Norm (Normal) Urine Ketones Negative (Negative) Urine Blood Neg (Negative) Urine Nitrate Negative (Negative) Urine Bilirubin Neg (Negative) Urine Urobilinogen Norm (Negative) mg/dL Ur Leukocyte Ursula ase Negative (Negative) 03/19/20 Range/Units 18:04 WBC (4.0-10.0) 10^3/ uL RBC (4.1-5.3) 10^6/u L Hgb (11.7-16.6) g/dL Hct (42.0-52.0) % MCV (80-94) fL MCH (28.0-34.0) pg MCHC (30.0-36.0) g/dL RDW (12.1-15.1) % Plt Count (130-400) 10^3/c mm MPV (7.4-10.4) fL Neut % (Auto) % Lymph % (Auto) % Esmeralda % (Auto) % Eos % (Auto) % Baso % (Auto) % Neut # (Auto) (1.8-7.7) 10^3/u L Lymph # (Auto) (0.8-4.8) 10^3/u L Esmeralda # (Auto) (0.2-0.9) 10^3/u L Eos # (Auto) (0.0-0.8) 10^3/u L Baso # (Auto) (0.0-0.1) 10^3/u L Nucleated RBC % (a uto) % Nucleated RBCs # /100WBC PT (12.1-14.9) SECO NDS INR (0.8-1.2) APTT (23.9-36.7) SECO NDS Sodium (136-145) mmol/L Potassium (3.5-5.1) mmol/L Chloride (98-107) mmol/L Carbon Dioxide (22-29) mmol/L Anion Gap (5-19) BUN (8-23) mg/dL Creatinine (0.7-1.2) mg/dL GFR Calculation Glucose (65-115) mg/dL Calculated Osmolal ity (285-295) mOsm/k g Calcium (8.5-10.5) mg/dL Total Bilirubin (0.15-1.2) mg/dL AST (0-40) U/L ALT (0-41) U/L Alkaline Phosphata se (40-130) IU/L Troponin T Gen 5 n g/L 67 H (0-15) ng/L Total Protein (6.6-8.7) g/dL Albumin (3.5-5.2) g/dL Globulin (1.3-4.6) g/dL Lipase (13-60) U/L Urine Color (Yellow) Urine Appearance (CLEAR) Urine pH (5-7) Ur Specific Gravit y (1.005-1.030) Urine Protein (Negative) Urine Glucose (UA) (Normal) Urine Ketones (Negative) Urine Blood (Negative) Urine Nitrate (Negative) Urine Bilirubin (Negative) Urine Urobilinogen (Negative) mg/dL Ur Leukocyte Ursula ase (Negative) Discharge Plan Discharge Patient Disposition: Home Clinical Impression: Back pain Qualifiers: Back pain location: back pain in unspecified location Chronicity: unspecified Back pain laterality: unspecified Qualified Code(s): M54.9 - Dorsalgia, unspecified Condition: Stable Prescriptions: New tramadol 50 mg tablet 50 mg PO Q8H PRN (Reason: pain) Qty: 15 RF: 0 No Action pantoprazole 40 mg tablet,delayed release (DR/EC) 40 mg PO BID@1000,2100 RF: 0 amiodarone 200 mg tablet 100 mg PO DAILY@1000 RF: 0 Eliquis 5 mg tablet 2.5 mg PO BID@999,2099 RF: 0 saw palmetto 450 mg capsule 450 mg PO BID@999,2099 RF: 0 multivitamin Tablet 1 tab PO DAILY@1000 RF: 0 atorvastatin 40 mg tablet 40 mg PO DAILY RF: 0 acetaminophen 500 mg Tablet 500 mg PO DAILY@1000 RF: 0 magnesium 250 mg Tablet 250 mg PO DAILY@1000 RF: 0 vitamin B complex 1 tab PO DAILY@1000 RF: 0 nitroglycerin 0.4 mg tablet, sublingual 0.4 mg sublingual Q5M PRN (Reason: chest pains) RF: 0 aspirin 81 mg Tablet,Delayed Release (Dr/Ec) 81 mg PO DAILY@1000 RF: 0 amlodipine 5 mg Tablet 2.5 mg PO DAILY Qty: 15 RF: 0 metoprolol tartrate 25 mg Tablet 25 mg PO BID@0900,2100 Qty: 60 RF: 0 isosorbide mononitrate 120 mg tablet extended release 24 hr 120 mg PO DAILY Qty: 30 RF: 0 Discharge Orders: Discharge ED (Routine); Ordered 03/19/20 Ordered By: Deondre Epstein Referrals: Nikita Mosher MD [Primary Care Provider] - Discharge Diet: Usual diet Discharge Activity: Increase activity as tolerated Patient Instructions: Back Pain (ED) Activity Restrictions/Additional Instructions: Activity as tolerated. Gentle stretching and range of motion exercises. Drink plenty of water with medication. Follow-up with Dr. Mosher on Sunday for further evaluation and treatment. Return to the emergency department for new concerns. 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
[2020-03-19 16:37] LABS: INR 1.22 (0.8-1.2)
[2020-03-19 16:38] LABS: Partial Thromboplastin Time 39.4 SECONDS (23.9-36.7)
[2020-03-19 16:44] LABS: Troponin T (5th) Once 69 ng/L (0-15)
[2020-03-19 18:31] LABS: Troponin T (5th) Once 67 ng/L (0-15)
[2020-03-19] MEDS: TRAMadol 50 mg Tablet PO (19:16)
== END 2020-03-19 19:37 | disposition home or self-care (01) ==
PROVIDERS: Registered Nurse; Emergency Provider Nurse Practitioner Family; PCP Family Medicine
DX: M54.9 Dorsalgia, unspecified (principal); Z79.82 Long term (current) use of aspirin; Z79.01 Long term (current) use of anticoagulants; I48.91 Unspecified atrial fibrillation; I25.10 Atherosclerotic heart disease of native coronary artery without angina pectoris; E78.5 Hyperlipidemia, unspecified; I10 Essential (primary) hypertension; Z86.73 Personal history of transient ischemic attack (TIA), and cerebral infarction without residual deficits; Z87.891 Personal history of nicotine dependence
CPT/HCPCS: 12345; 36415; 71260; 74177; 80053; 81003; 83690; 84484; 85025; 85610; 85730; 93005; 96374; 99284; J2270; Q9967

== ENCOUNTER → 2020-03-24 12:56 | Outpatient (BNVA) | payer MEDICARE, OTHER, SELFPAY | PROVIDERS: PCP Family Medicine; Visit Provider Nurse Practitioner Family | DX: Z20.828 Contact with and (suspected) exposure to other viral communicable diseases (principal); J06.9 Acute upper respiratory infection, unspecified | CPT/HCPCS: 87635 ==

== ENCOUNTER → 2020-04-02 14:01 | Outpatient (BNVA) | payer MEDICARE, OTHER, SELFPAY | PROVIDERS: PCP Family Medicine; Visit Provider Family Medicine | DX: Z11.59 Encounter for screening for other viral diseases (principal) | CPT/HCPCS: 87635 ==

== ENCOUNTER 2020-04-08 09:28 | Outpatient (CLI) | payer MEDICARE, OTHER, SELFPAY ==
[2020-04-08 09:52] VITALS: BP 120/59; BP 155/92; PULSE 73; PULSE 96; RESP 16; TEMP 37.2; TEMP 37.7; O2SAT 96; BMI 22.0
--- NOTE | 2020-04-08 10:15 | AMB.MCA ---
Patient Information Referred by: Nomi Symptom onset date: 03/30/20 COVID 19 common symptoms: positive headache(s) and nasal congestion COVID 19 other sytmptoms: positive pleuritic pain; negative chest pressure, chest pain, requiring oxygen, requiring more oxygen, respiratory distress, cyanosis, lethargy, confusion, new neurological complaints or other concerning symptoms Severity: mild Treatment prior to arrival: none [facility] COVID test results: SARS-CoV-2 Antigen (Rapid) Negative (Negative) 03/12/20 05:55 03/12/20 Nasal/Oral Coronavirus 2019 PCR Detected H 04/02/20 14:01 04/02/20 outside results available, scanned Criteria/Plan Inclusion/Exclusion Criteria weight >/= 40kg, + direct test </= 10 days ago and symptom onset </= 10 days ago age >/= 65, age >/= 55 and has hypertension, age >/= 55 and has diabetes and age >/= 55 and has COPD/lung diease not requiring hospitalization, not requiring oxygen (if not chronically on oxygen) and no increase oxygen requirement (if chronically on oxygen) Patient education patient/caregiver received/reviewed fact sheet, Emergency Use Authorization/unapproved drug status discussed with patient/caregiver, alternatives to this treatment discussed with patient/caregiver, risks and benefits of medication reviewed with patient/caregiver, patient/caregiver given opportunity for questions, which were answered and patient/caregiver consents to receiving Monoclonal Antibody Treatment Plan for treatment Meets criteria for Monoclonal Antibody infusion
[2020-04-08 10:20] VITALS: BMI 22.0
[2020-04-08 11:03] VITALS: BP 124/64; PULSE 70; TEMP 37.1; O2SAT 95
--- NOTE | 2020-04-08 11:15 | PC.NURSE ---
When assessing pt for immunotherapy. Patient stated he did have some pain on his Left side. The pain radiates to his back and down his Left arm on occasion. This pain has been going on for sometime. His pcp Nomi is aware per pt report. Pt does have a history of blockages. Pt has no needs at this time. Juan GODINEZ
[2020-04-08 11:18] VITALS: BP 177/83; PULSE 76; TEMP 37.3; O2SAT 96
[2020-04-08 11:45] VITALS: BP 153/92; PULSE 90
--- NOTE | 2020-04-08 12:13 | PC.NURSE ---
Called Pt PCP Dr. Mosher to let his office know of his problems of chest pain, hypertension, and heart monitor showing signs of afib after immunotherapy was given. I spoke with Dara at [facility]
[2020-04-08 12:38] VITALS: BP 155/92; PULSE 96; RESP 16; TEMP 37.7; O2SAT 96
--- NOTE | 2020-04-08 13:11 | PC.NURSE ---
Called Dr. Aldridge office again to see what he would like for pt to do. Dr. Mosher said to go ahead and take pt to the er. Patient was taken to the ER by wheelchair. Pt still complaining of chest discomfort and telemetry shows afib. was made aware. No further needs from the pt at this time. Juan
--- NOTE | 2020-04-13 14:50 | DCPLANNER ---
Addendum entered by Adalgisa Child 04/22/20 14:47: documentation manager called to check on patient after getting the BAM infusion. documentation manager was unable to speak with patient at this time, a voicemail was left for patient to return case finisher phone call. Original Note: documentation manager had message that patient received the BAM infusion. documentation manager called to check on patient after getting the infusion. Patient stated that he was feeling better. Before the infusion he said that he had a cough, and was hacking. After the infusion, he said that he is gradully feeling better. He is feeling pretty good.
== END 2020-04-08 12:50 | disposition home or self-care (01) ==
PROVIDERS: PCP Family Medicine; Referring Provider Nurse Practitioner Family; Visit Provider Family Medicine
DX: U07.1 COVID-19 (principal)

== ENCOUNTER 2020-04-08 13:04 | Emergency (ER) | payer MEDICARE, OTHER, SELFPAY ==
[2020-04-08 13:15] VITALS: BP 122/66; PULSE 114; RESP 18; TEMP 36.9; O2SAT 95; BMI 22.0
--- NOTE | 2020-04-08 13:57 | ECG_ITS ---
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 Measurements Intervals [place] Rate: 99 P: [place]: QRS: 45 QRSD: 104 T: 41 QT: 365 QTc: 468 Interpretive Statements ATRIAL FIBRILLATION VOLTAGE CRITERIA FOR LVH [MEETS CRITERIA IN ONE OF: R(aVL), S(V1), R(V5), R(V5/V6)+S(V1)] MARKED ST DEPRESSION, CONSIDER SUBENDOCARDIAL INJURY [0.2+ mV ST DEPRESSION] Compared to ECG 03/19/2020 13:55:42 Left ventricular hypertrophy now present ST (T wave) deviation now present Sinus rhythm no longer present Intraventricular conduction delay no longer present T-wave abnormality no longer present Possible ischemia no longer present Electronically Signed On 04-09-2020 19:09:38 PARALEGAL by Ce Huerta M.D. [id number]
--- NOTE | 2020-04-08 13:57 | XR_ITS ---
WS: [id number] Portable AP upright chest, 04/08/2020 Clinical Data: chest pain Comparison: Portable chest, 03/15/2020. Findings: No nodules, masses or effusions are seen. The heart is normal. The pulmonary vascularity is not increased. No pneumonia or pneumothorax is seen. The aortic arch and descending aorta are tortuo us. There is an anterior cervical disc fusion present. XR/XR chest 1V portable [id number] Impression: Atherosclerosis.
[2020-04-08 15:37] LABS: Basophils % 0.3 %; Eosinophils # 0.1 10^3/uL (0.0-0.8); Eosinophils % 0.8 %; Hemoglobin 13.7 g/dL (11.7-16.6); Lymphocytes # 1.2 10^3/uL (0.8-4.8); Lymphocytes % 18.3 %; Mean Corpuscular HGB Conc 32.6 g/dL (30.0-36.0); Mean Corpuscular Hemoglobin 30.7 pg (28.0-34.0); Mean Corpuscular Volume 94.2 fL (80-94); Mean Platelet Volume 9.5 fL (7.4-10.4); Monocytes # 0.7 10^3/uL (0.2-0.9); Monocytes % 9.9 %; Neutrophils # 4.62 10^3/uL (1.8-7.7); Neutrophils % 70.2 %; Nucleated Red Blood Cells % 0 %; Platelet Count 177 10^3/cmm (130-400); Red Blood Count 4.46 10^6/uL (4.1-5.3); Red Cell Distribution Width 14.4 % (12.1-15.1); White Blood Count 6.6 10^3/uL (4.0-10.0)
--- NOTE | 2020-04-08 15:56 | ED_ITS ---
Documented by User: Truong Chowdary MD 04/08/20 16:02 HPI - Chest Pain General: Chief Complaint: Chest Pain Stated Complaint: afib Time Seen by Provider: 04/08/20 13:56 Source: patient, RN notes reviewed and old records reviewed Mode of arrival: ambulatory Limitations: no limitations History of Present Illness: HPI narrative: This patient is a 79-year-old male with a history of coronary artery disease presents to the emergency department complaint of atypical type pleuritic chest pain. Patient was recently diagnosed with COVID-19 on 04/03/2019. Patient states that he has a cough and when he does it causes chest wall pain. Patient denies any significant fever states he has been doing well. Patient denies any significant shortness of breath. Patient was seen the end of February for chest pain and was evaluated by cardiology at this time. Patient has known coronary artery disease with multiple stents in the past patient states he had angiogram but stated that everything was unchanged. Patient denies any cardiac chest pain at this time. Patient has a long history of atrial fibrillation and EKG done on arrival shows atrial fibrillation with a heart rate of 99 nonspecific EKG changes chronic for this patient. 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 Onset (ago): day(s) (3) Timing of current episode: stable Prior episodes: No Onset: other (cough) Pain radiation: none Severity: mild Quality: sharp Exacerbating factors: inspiration (and cough) Context: recent illness Associated symptoms: Deny abdominal pain, diaphoresis, dyspnea, fever(s), leg edema, nausea, palpitations or vomiting Treatment prior to arrival: none and other (Patient refused received infusion of bam prior to arrival) Risk Factors: Coronary artery disease risk factors: hypertension and family history of CAD before age 50 Review of Systems General: Reports: 10 or more systems reviewed and unremarkable except in HPI and below Const: Denies: fever(s), chills, body aches or diaphoresis Eyes: Denies: change in vision, eye discharge or eye redness ENMT: Denies: throat pain, odynophagia, hoarseness or mouth pain Card: Denies: chest pain, palpitations, irregular heart rhythm, edema, swelling of feet/ankles or lightheadedness Resp: Reports: non-productive cough and chest congestion; Denies: dyspnea, productive cough, wheezing, stridor, pain on inspiration or change in phlegm color GI: Denies: abdominal pain, nausea, vomiting or hematemesis : Denies: flank pain, difficulty urinating or urinary hesitancy Musc: Denies: neck pain or back pain PFSH ED PFSH: Medical History Anticoagulation adequate with anticoagulant therapy Atherosclerotic heart disease of [place] coronary artery with other forms of angina pectoris Atherosclerotic heart disease of [place]im[place] coronary artery with unstable angina pectoris Atrial fibrillation CAD (coronary artery disease) Chronic kidney disease (CKD) Dyslipidemia Essential hypertension GERD (gastroesophageal reflux disease) Peripheral neuropathy Sleep apnea TIA (transient ischemic attack) Surgical History History of coronary angiogram History of neck surgery History of shoulder surgery History of surgery on wrist Family History Other Diabetes Denies family history of Cancer Social History Smoking and tobacco status: former smoker Alcohol intake: never Household members: spouse Marital status: Current occupational status: retired Physical Exam Const: COMMON NORMALS: no acute distress, average body habitus, patient oriented x3, no limitations, healthy appearing, alert and well nourished HENMT: COMMON NORMALS: normocephalic, atraumatic, hearing grossly normal bilaterally, external ears normal, EAC's normal, TM's normal bilaterally, Normal external nose present, Normal nasal mucous membranes and turbinates present, moist oral mucous membranes, oropharynx normal, dentition normal and gingiva normal HEAD & SCALP: normocephalic and atraumatic NOSE: Normal external nose present and Normal nasal mucous membranes and turbinates present EXTERNAL EAR: Yes external ears normal EXTERNAL AUDITORY CANAL: EAC's normal TYMPANIC MEMBRANE: TM's normal bilaterally Neck/C-Spine: COMMON NORMALS: full ROM, no lymphadenopathy, supple, no meningeal signs, no JVD, Thyroid normal and No carotid bruits THYROID: Thyroid normal Chest: COMMONS NORMALS: normal inspection of the chest, normal palpation of entire chest wall, normal inspection of the breasts and normal palpation of the breasts Breast/axilla inspection: Yes normal inspection of the breasts BREAST/AXILLA PALPATION: Yes normal palpation of the breasts Resp: COMMON NORMALS: normal respiratory effort, No retractions, No use of accessory muscles, clear to auscultation bilaterally and percussion normal EFFORT & INSPECTION: Yes Actively coughing AUSCULTATION: clear to auscultation bilaterally PERCUSSION: percussion normal OTHER: Patient states painful cough. Pleuritic in nature Cardio: COMMON NORMALS: no JVD and regular rate RATE: regular rate RHYTHM: abnormal rhythm OTHER: EKG atrial fibrillation which is chronic for this patient GI: COMMON NORMALS: Normal to inspection, nondistended, normoactive bowel sounds present, Soft to palpation, non-tender, No hepatosplenomegaly present, no masses and no bruits PALPATION: Yes Soft to palpation and Yes No hepatosplenomegaly present Neuro: COMMON NORMALS: patient oriented x3 SENSORIUM/ORIENTATION: Yes alert MENINGEAL SIGNS: Yes no meningeal signs Skin: COMMON NORMALS: no rashes or lesions noted, no wounds, turgor normal, no jaundice, no petechiae and no mottling GENERAL SKIN EXAM: no rashes or lesions noted and turgor normal Course Vital Signs: Vital signs: Vital Signs Temperature 98.5 F 04/08/20 13:15 Pulse Rate 81 04/08/20 17:39 Respiratory Rate 16 04/08/20 17:39 Blood Pressure 115/65 04/08/20 17:39 Pulse Oximetry 95 04/08/20 17:39 MDM - Chest Pain Lab Data: Labs: Lab Results 04/08/20 04/08/20 04/08/20 Range/Units 15:29 15:29 15:29 WBC 6.6 (4.0-10.0) 10^3/ uL RBC 4.46 (4.1-5.3) 10^6/u L Hgb 13.7 (11.7-16.6) g/dL Hct 42.0 (42.0-52.0) % MCV 94.2 H (80-94) fL MCH 30.7 (28.0-34.0) pg MCHC 32.6 (30.0-36.0) g/dL RDW 14.4 (12.1-15.1) % Plt Count 177 (130-400) 10^3/c mm MPV 9.5 (7.4-10.4) fL Neut % (Auto) 70.2 % Lymph % (Auto) 18.3 % [place] % (Auto) 9.9 % Eos % (Auto) 0.8 % Baso % (Auto) 0.3 % Neut # (Auto) 4.62 (1.8-7.7) 10^3/u L Lymph # (Auto) 1.2 (0.8-4.8) 10^3/u L [place] # (Auto) 0.7 (0.2-0.9) 10^3/u L Eos # (Auto) 0.1 (0.0-0.8) 10^3/u L Baso # (Auto) 0.0 (0.0-0.1) 10^3/u L Nucleated RBC % (a uto) 0 % Nucleated RBCs # 0.0 /100WBC PT 15.00 H (12.1-14.9) SECO NDS INR 1.14 (0.8-1.2) D-Dimer 1.01 H (0-0.59) ug/mIFE U Sodium 143 (136-145) mmol/L Potassium 3.9 (3.5-5.1) mmol/L Chloride 105 (98-107) mmol/L Carbon Dioxide 24 (22-29) mmol/L Anion Gap 17.9 (5-19) BUN 22 (8-23) mg/dL Creatinine 1.4 H (0.7-1.2) mg/dL GFR Calculation Not Reportable Glucose 113 (65-115) mg/dL Calculated Osmolal ity 300 H (285-295) mOsm/k g Calcium 8.5 (8.5-10.5) mg/dL Total Bilirubin 0.5 (0.15-1.2) mg/dL AST 28 (0-40) U/L ALT 21 (0-41) U/L Alkaline Phosphata se 84 (40-130) IU/L Troponin T Baselin e (0-15) ng/L Troponin T 120 Min [place] (0-15) ng/L Delta Troponin T (0-10) ABS# NT-Pro-B Natriuret Pep 2302 H (0-450) pg/mL Total Protein 7.3 (6.6-8.7) g/dL Albumin 3.8 (3.5-5.2) g/dL Globulin 3.5 (1.3-4.6) g/dL Urine Color (Yellow) Urine Appearance (CLEAR) Urine pH (5-7) Ur Specific Gravit y (1.005-1.030) Urine Protein (Negative) Urine Glucose (UA) (Normal) Urine Ketones (Negative) Urine Blood (Negative) Urine Nitrate (Negative) Urine Bilirubin (Negative) Urine Urobilinogen (Negative) mg/dL Ur Leukocyte Ursula ase (Negative) Urine RBC (0-2) /hpf Urine WBC (0-5) /hpf Ur Squamous Epith Cells (0-5) /hpf Calcium Oxalate Cr ystal /hpf Amorphous Sediment Urine Bacteria (NONE) /hpf Hyaline Casts /lpf Urine Mucus /hpf 04/08/20 04/08/20 04/08/20 Range/Units 15:29 17:26 17:27 WBC (4.0-10.0) 10^3/ uL RBC (4.1-5.3) 10^6/u L Hgb (11.7-16.6) g/dL Hct (42.0-52.0) % MCV (80-94) fL MCH (28.0-34.0) pg MCHC (30.0-36.0) g/dL RDW (12.1-15.1) % Plt Count (130-400) 10^3/c mm MPV (7.4-10.4) fL Neut % (Auto) % Lymph % (Auto) % [place] % (Auto) % Eos % (Auto) % Baso % (Auto) % Neut # (Auto) (1.8-7.7) 10^3/u L Lymph # (Auto) (0.8-4.8) 10^3/u L [place] # (Auto) (0.2-0.9) 10^3/u L Eos # (Auto) (0.0-0.8) 10^3/u L Baso # (Auto) (0.0-0.1) 10^3/u L Nucleated RBC % (a uto) % Nucleated RBCs # /100WBC PT (12.1-14.9) SECO NDS INR (0.8-1.2) D-Dimer (0-0.59) ug/mIFE U Sodium (136-145) mmol/L Potassium (3.5-5.1) mmol/L Chloride (98-107) mmol/L Carbon Dioxide (22-29) mmol/L Anion Gap (5-19) BUN (8-23) mg/dL Creatinine (0.7-1.2) mg/dL GFR Calculation Glucose (65-115) mg/dL Calculated Osmolal ity (285-295) mOsm/k g Calcium (8.5-10.5) mg/dL Total Bilirubin (0.15-1.2) mg/dL AST (0-40) U/L ALT (0-41) U/L Alkaline Phosphata se (40-130) IU/L Troponin T Baselin e 28 H (0-15) ng/L Troponin T 120 Min [place] 28.66 H (0-15) ng/L Delta Troponin T 0.66 (0-10) ABS# NT-Pro-B Natriuret Pep (0-450) pg/mL Total Protein (6.6-8.7) g/dL Albumin (3.5-5.2) g/dL Globulin (1.3-4.6) g/dL Urine Color Yellow (Yellow) Urine Appearance Clear (CLEAR) Urine pH 6 (5-7) Ur Specific Gravit y 1.015 (1.005-1.030) Urine Protein 1+ H (Negative) Urine Glucose (UA) Norm (Normal) Urine Ketones Negative (Negative) Urine Blood Neg (Negative) Urine Nitrate Negative (Negative) Urine Bilirubin Neg (Negative) Urine Urobilinogen Norm (Negative) mg/dL Ur Leukocyte Ursula ase Negative (Negative) Urine RBC 0-4 H (0-2) /hpf Urine WBC None (0-5) /hpf Ur Squamous Epith Cells 0-4 H (0-5) /hpf Calcium Oxalate Cr ystal None /hpf Amorphous Sediment Not Reportable Urine Bacteria Trace (NONE) /hpf Hyaline Casts 5-10 H /lpf Urine Mucus 1+ /hpf EKG Data^: EKG 1: EKG interpretation date: 04/08/20 EKG interpretation time: 13:10 Prior EKG tracings: available for review Ischemic changes: non-specific ST-T wave changes Interpretation: Chronic atrial fibrillation with a heart rate of [address] changes chronic in nature Discharge Plan Discharge Patient Disposition: Home Clinical Impression: Chest pain, Atrial fibrillation, COVID-19, CAD (coronary artery disease) Condition: Stable Prescriptions: No Action pantoprazole 40 mg tablet,delayed release (DR/EC) 40 mg PO BID@1000,2100 RF: 0 amiodarone 200 mg tablet 100 mg PO DAILY@1000 RF: 0 Eliquis 5 mg tablet 2.5 mg PO BID@1000,2100 RF: 0 saw palmetto 450 mg capsule 450 mg PO BID@1000,2100 RF: 0 multivitamin Tablet 1 tab PO DAILY@1000 RF: 0 atorvastatin 40 mg tablet 40 mg PO DAILY RF: 0 acetaminophen 500 mg Tablet 500 mg PO DAILY@1000 RF: 0 magnesium 250 mg Tablet 250 mg PO DAILY@1000 RF: 0 vitamin B complex 1 tab PO DAILY@1000 RF: 0 nitroglycerin 0.4 mg tablet, sublingual 0.4 mg sublingual Q5M PRN (Reason: chest pains) RF: 0 aspirin 81 mg Tablet,Delayed Release (Dr/Ec) 81 mg PO DAILY@1000 RF: 0 amlodipine 5 mg Tablet 2.5 mg PO DAILY Qty: 15 RF: 0 metoprolol tartrate 25 mg Tablet 25 mg PO BID@0900,2100 Qty: 60 RF: 0 isosorbide mononitrate 120 mg tablet extended release 24 hr 120 mg PO DAILY Qty: 30 RF: 0 tramadol 50 mg tablet 50 mg PO Q8H PRN (Reason: pain) Qty: 15 RF: 0 Discharge Orders: Discharge ED (Routine); Ordered 04/08/20 Ordered By: Georges Ferrell Referrals: Nikita Mosher MD [Primary Care Provider] - Discharge Diet: Cardiac Discharge Activity: Limit activity as instructed Patient Instructions: Chest Pain (ED) Coding Level of Care Code ED Relay Shop Supervisor for Chg Fwd Exam Comprehensive Documented by User: Georges Ferrell 04/08/20 19:25 HPI - Chest Pain General: Chief Complaint: Chest Pain Stated Complaint: afib Time Seen by Provider: 04/08/20 13:56 PFSH ED PFSH: Medical History Anticoagulation adequate with anticoagulant therapy Atherosclerotic heart disease of [place] coronary artery with other forms of angina pectoris Atherosclerotic heart disease of [place] coronary artery with unstable angina pectoris Atrial fibrillation CAD (coronary artery disease) Chronic kidney disease (CKD) Dyslipidemia Essential hypertension GERD (gastroesophageal reflux disease) Peripheral neuropathy Sleep apnea TIA (transient ischemic attack) Surgical History History of coronary angiogram History of neck surgery History of shoulder surgery History of surgery on wrist Family History Other Diabetes Denies family history of Cancer Social History Smoking and tobacco status: former smoker Alcohol intake: never Household members: spouse Marital status: Current occupational status: retired Course Vital Signs: Vital signs: Vital Signs Temperature 98.5 F 04/08/20 13:15 Pulse Rate 81 04/08/20 17:39 Respiratory Rate 16 04/08/20 17:39 Blood Pressure 115/65 04/08/20 17:39 Pulse Oximetry 95 04/08/20 17:39 MDM - Chest Pain Lab Data: Labs: Lab Results 04/08/20 04/08/20 04/08/20 Range/Units 15:29 15:29 15:29 WBC 6.6 (4.0-10.0) 10^3/ uL RBC 4.46 (4.1-5.3) 10^6/u L Hgb 13.7 (11.7-16.6) g/dL Hct 42.0 (42.0-52.0) % MCV 94.2 H (80-94) fL MCH 30.7 (28.0-34.0) pg MCHC 32.6 (30.0-36.0) g/dL RDW 14.4 (12.1-15.1) % Plt Count 177 (130-400) 10^3/c mm MPV 9.5 (7.4-10.4) fL Neut % (Auto) 70.2 % Lymph % (Auto) 18.3 % [place] % (Auto) 9.9 % Eos % (Auto) 0.8 % Baso % (Auto) 0.3 % Neut # (Auto) 4.62 (1.8-7.7) 10^3/u L Lymph # (Auto) 1.2 (0.8-4.8) 10^3/u L [place] # (Auto) 0.7 (0.2-0.9) 10^3/u L Eos # (Auto) 0.1 (0.0-0.8) 10^3/u L Baso # (Auto) 0.0 (0.0-0.1) 10^3/u L Nucleated RBC % (a uto) 0 % Nucleated RBCs # 0.0 /100WBC PT 15.00 H (12.1-14.9) SECO NDS INR 1.14 (0.8-1.2) D-Dimer 1.01 H (0-0.59) ug/mIFE U Sodium 143 (136-145) mmol/L Potassium 3.9 (3.5-5.1) mmol/L Chloride 105 (98-107) mmol/L Carbon Dioxide 24 (22-29) mmol/L Anion Gap 17.9 (5-19) BUN 22 (8-23) mg/dL Creatinine 1.4 H (0.7-1.2) mg/dL GFR Calculation Not Reportable Glucose 113 (65-115) mg/dL Calculated Osmolal ity 300 H (285-295) mOsm/k g Calcium 8.5 (8.5-10.5) mg/dL Total Bilirubin 0.5 (0.15-1.2) mg/dL AST 28 (0-40) U/L ALT 21 (0-41) U/L Alkaline Phosphata se 84 (40-130) IU/L Troponin T Baselin e (0-15) ng/L Troponin T 120 Min [place] (0-15) ng/L Delta Troponin T (0-10) ABS# NT-Pro-B Natriuret Pep 2302 H (0-450) pg/mL Total Protein 7.3 (6.6-8.7) g/dL Albumin 3.8 (3.5-5.2) g/dL Globulin 3.5 (1.3-4.6) g/dL Urine Color (Yellow) Urine Appearance (CLEAR) Urine pH (5-7) Ur Specific Gravit y (1.005-1.030) Urine Protein (Negative) Urine Glucose (UA) (Normal) Urine Ketones (Negative) Urine Blood (Negative) Urine Nitrate (Negative) Urine Bilirubin (Negative) Urine Urobilinogen (Negative) mg/dL Ur Leukocyte Ursula ase (Negative) Urine RBC (0-2) /hpf Urine WBC (0-5) /hpf Ur Squamous Epith Cells (0-5) /hpf Calcium Oxalate Cr ystal /hpf Amorphous Sediment Urine Bacteria (NONE) /hpf Hyaline Casts /lpf Urine Mucus /hpf 04/08/20 04/08/20 04/08/20 Range/Units 15:29 17:26 17:27 WBC (4.0-10.0) 10^3/ uL RBC (4.1-5.3) 10^6/u L Hgb (11.7-16.6) g/dL Hct (42.0-52.0) % MCV (80-94) fL MCH (28.0-34.0) pg MCHC (30.0-36.0) g/dL RDW (12.1-15.1) % Plt Count (130-400) 10^3/c mm MPV (7.4-10.4) fL Neut % (Auto) % Lymph % (Auto) % [place] % (Auto) % Eos % (Auto) % Baso % (Auto) % Neut # (Auto) (1.8-7.7) 10^3/u L Lymph # (Auto) (0.8-4.8) 10^3/u L [place] # (Auto) (0.2-0.9) 10^3/u L Eos # (Auto) (0.0-0.8) 10^3/u L Baso # (Auto) (0.0-0.1) 10^3/u L Nucleated RBC % (a uto) % Nucleated RBCs # /100WBC PT (12.1-14.9) SECO NDS INR (0.8-1.2) D-Dimer (0-0.59) ug/mIFE U Sodium (136-145) mmol/L Potassium (3.5-5.1) mmol/L Chloride (98-107) mmol/L Carbon Dioxide (22-29) mmol/L Anion Gap (5-19) BUN (8-23) mg/dL Creatinine (0.7-1.2) mg/dL GFR Calculation Glucose (65-115) mg/dL Calculated Osmolal ity (285-295) mOsm/k g Calcium (8.5-10.5) mg/dL Total Bilirubin (0.15-1.2) mg/dL AST (0-40) U/L ALT (0-41) U/L Alkaline Phosphata se (40-130) IU/L Troponin T Baselin e 28 H (0-15) ng/L Troponin T 120 Min [place] 28.66 H (0-15) ng/L Delta Troponin T 0.66 (0-10) ABS# NT-Pro-B Natriuret Pep (0-450) pg/mL Total Protein (6.6-8.7) g/dL Albumin (3.5-5.2) g/dL Globulin (1.3-4.6) g/dL Urine Color Yellow (Yellow) Urine Appearance Clear (CLEAR) Urine pH 6 (5-7) Ur Specific Gravit y 1.015 (1.005-1.030) Urine Protein 1+ H (Negative) Urine Glucose (UA) Norm (Normal) Urine Ketones Negative (Negative) Urine Blood Neg (Negative) Urine Nitrate Negative (Negative) Urine Bilirubin Neg (Negative) Urine Urobilinogen Norm (Negative) mg/dL Ur Leukocyte Ursula ase Negative (Negative) Urine RBC 0-4 H (0-2) /hpf Urine WBC None (0-5) /hpf Ur Squamous Epith Cells 0-4 H (0-5) /hpf Calcium Oxalate Cr ystal None /hpf Amorphous Sediment Not Reportable Urine Bacteria Trace (NONE) /hpf Hyaline Casts 5-10 H /lpf Urine Mucus 1+ /hpf Discharge Plan Discharge Patient Disposition: Home Clinical Impression: Chest pain, Atrial fibrillation, COVID-19, CAD (coronary artery disease) Condition: Stable Prescriptions: No Action pantoprazole 40 mg tablet,delayed release (DR/EC) 40 mg PO BID@1000,2100 RF: 0 amiodarone 200 mg tablet 100 mg PO DAILY@1000 RF: 0 Eliquis 5 mg tablet 2.5 mg PO BID@1000,2100 RF: 0 saw palmetto 450 mg capsule 450 mg PO BID@1000,2100 RF: 0 multivitamin Tablet 1 tab PO DAILY@1000 RF: 0 atorvastatin 40 mg tablet 40 mg PO DAILY RF: 0 acetaminophen 500 mg Tablet 500 mg PO DAILY@1000 RF: 0 magnesium 250 mg Tablet 250 mg PO DAILY@1000 RF: 0 vitamin B complex 1 tab PO DAILY@1000 RF: 0 nitroglycerin 0.4 mg tablet, sublingual 0.4 mg sublingual Q5M PRN (Reason: chest pains) RF: 0 aspirin 81 mg Tablet,Delayed Release (Dr/Ec) 81 mg PO DAILY@1000 RF: 0 amlodipine 5 mg Tablet 2.5 mg PO DAILY Qty: 15 RF: 0 metoprolol tartrate 25 mg Tablet 25 mg PO BID@0900,2100 Qty: 60 RF: 0 isosorbide mononitrate 120 mg tablet extended release 24 hr 120 mg PO DAILY Qty: 30 RF: 0 tramadol 50 mg tablet 50 mg PO Q8H PRN (Reason: pain) Qty: 15 RF: 0 Discharge Orders: Discharge ED (Routine); Ordered 04/08/20 Ordered By: Georges Ferrell Referrals: Nikita Mosher MD [Primary Care Provider] - Discharge Diet: Cardiac Discharge Activity: Limit activity as instructed Patient Instructions: Chest Pain (ED) Coding Level of Care Code ED Relay Shop Supervisor for Eleazar Fwd Exam Comprehensive
[2020-04-08 16:00] LABS: INR 1.14 (0.8-1.2)
[2020-04-08 16:02] LABS: D Dimer 1.01 ug/mIFEU (0-0.59)
[2020-04-08 16:05] VITALS: BP 139/83; PULSE 128; RESP 20; O2SAT 95
[2020-04-08] MEDS: benzonatate 100 mg Capsule PO (16:05)
[2020-04-08] MEDS: diphenhydrAMINE 25 mg Capsule PO (16:05)
[2020-04-08 16:19] LABS: Troponin(5th) Baseline 28 ng/L (0-15)
[2020-04-08 16:21] LABS: Alanine Aminotransferase 21 U/L (0-41); Albumin Level 3.8 g/dL (3.5-5.2); Alkaline Phosphatase 84 IU/L (40-130); Aspartate Amino Transferase 28 U/L (0-40); Blood Urea Nitrogen 22 mg/dL (8-23); Calcium 8.5 mg/dL (8.5-10.5); Carbon Dioxide 24 mmol/L (22-29); Chloride 105 mmol/L (98-107); Globulin 3.5 g/dL (1.3-4.6); Glucose 113 mg/dL (65-115); NT Pro B Type Natriuretic Pept 2302 pg/mL (0-450); Osmolality Calculated 300 mOsm/kg (285-295); Sodium 143 mmol/L (136-145); Total Bilirubin 0.5 mg/dL (0.15-1.2); Total Protein 7.3 g/dL (6.6-8.7)
[2020-04-08 16:24] LABS: Anion Gap 17.9 (5-19); Potassium 3.9 mmol/L (3.5-5.1)
[2020-04-08 17:39] VITALS: BP 115/65; PULSE 81; RESP 16; O2SAT 95
[2020-04-08 17:56] LABS: Troponin 5 2HR 28.66 ng/L (0-15); Troponin 5 2HR Delta 0.66 ABS# (0-10)
[2020-04-08 18:30] LABS: Add Urine Microscopic? YES; Bilirubin Urine Neg (Negative); Blood Urine Neg (Negative); Glucose Urine UA Norm (Normal); Ketones Urine Negative (Negative); Leukocyte Esterase Urine Negative (Negative); Nitrate Urine Negative (Negative); Protein Urine 1+ (Negative); Specific Gravity, Urine 1.015 (1.005-1.030); Urine Appearance Clear (CLEAR); Urine Color Yellow (Yellow); Urobilinogen Urine Norm (Negative); pH Urine 6 (5-7)
[2020-04-08 18:46] LABS: RBC Urine 0-4 /hpf (0-2); Squamous Epithelial Cell Urine 0-4 /hpf (0-5)
[2020-04-08 18:47] LABS: Bacteria Urine TRACE /hpf
[2020-04-08 18:49] LABS: Add Urine Culture? No; Mucus Urine 1+ /hpf
[2020-04-08 19:55] VITALS: BP 124/72; PULSE 80; RESP 16; O2SAT 95
== END 2020-04-08 19:56 | disposition home or self-care (01) ==
PROVIDERS: Family Medicine; Emergency Provider Emergency Medicine; PCP Family Medicine
DX: U07.1 COVID-19 (principal); I48.91 Unspecified atrial fibrillation; R07.9 Chest pain, unspecified; I25.10 Atherosclerotic heart disease of native coronary artery without angina pectoris; Z79.82 Long term (current) use of aspirin; Z79.01 Long term (current) use of anticoagulants; E78.5 Hyperlipidemia, unspecified; I10 Essential (primary) hypertension; Z86.73 Personal history of transient ischemic attack (TIA), and cerebral infarction without residual deficits; Z87.891 Personal history of nicotine dependence
CPT/HCPCS: 36415; 71045; 80053; 81001; 83880; 84484; 85025; 85378; 85610; 93005; 99282; 99284

== ENCOUNTER 2020-05-12 13:01 | Outpatient (CLI) | payer MEDICARE, OTHER, SELFPAY ==
--- NOTE | 2020-05-12 13:10 | XR_ITS ---
WS: [id number] DEXA (DUAL ENERGY X-RAY ABSORPTIOMETRY) Bone mineral density was performed using a [employer] machine. HISTORY: Osteoporosis, 80-year-old male. COMPARISON: 05/11/2012 Lumbar spine BMD (L1-L4): 1.152 g/cm2 T score: -0.6 Z score: 0.7 Total hip BMD: Left: 0.899 g/cm2. T score: -1.4 Z score: 0.1 Right: 0.884 g/cm2. T score: -1.5 Z score: 0.0 10 year probability of a major osteoporotic fracture is 7.4%. Compared to the prior study from 05/11/2012. Lumbar spine bone mineral density has decreased by 4.1%. Bilateral hips bone mineral density has decreased by 6.6%. XR/XR DEXA axial skeleton* [id number] IMPRESSION: OSTEOPENIA. Significant decrease in bone mineral density within the hips and lumbar spine s mariah the prior study.
--- NOTE | 2020-05-12 13:10 | CT_ITS ---
WS: [id number] CT CHEST WITH INTRAVENOUS CONTRAST HISTORY: ATYPICAL CHEST PAIN TECHNIQUE: Contiguous 5 mm axial imaging performed on the thorax. Coronal and sagittal reformats are submitted. All CT scans at [facility] use at least one of these dose optimization techniq ues: automated exposure control; mA and/or kV adjustment per patient size (includes targeted exams wh ere dose is matched to clinical indication); or iterative reconstruction. CONTRAST: Visipaque 320; 95 mL IV. DLP: 630.82 mGycm COMPARISON: 03/19/2020, 03/12/2020 and 03/26/2018 Lungs and central airway: Lungs are hyperexpanded. Areas of groundglass attenuation are identified in the RIGHT upper, RIGHT middle and RIGHT lower lobes. These groundglass attenuation is were not prese nt on 03/26/2018 and progressed since 03/12/2020. There is no solid component. Pleura: Normal. No pleural effusion. Heart and pericardium: Mild enlargement of the heart chambers, greatest involving the LEFT atrium and LEFT ventricle. Moderate coronary artery calcifications. Mediastinum and darcy: No mediastinum or hilar adenopathy. Vessels: Moderate atherosclerosis aorta. Normal size pulmonary artery. Chest wall and lower neck: No soft tissue masses. Upper abdomen: Negative. Osseous structures: Increase in thoracic kyphosis. Spondylitic changes throughout the thoracic spine. CT/CT chest w con* [id number] IMPRESSION: 1. Groundglass opacifications have slightly progressed since 03/19/2019 in the R IGHT upper, RIGHT middle and RIGHT lower lobes. Differential includes pneumonit is and adenocarcinoma variant. These groundglass opacifications are not improvi ng. Recommend follow-up chest CT in 3 months with IV contrast and consider venu tment for pneumonitis. 2. Chronic emphysema. 3. Cardiomegaly, greatest involving the LEFT heart chambers. 4. Moderate coronary artery atherosclerosis.
--- NOTE | 2020-05-12 13:10 | CT_ITS ---
WS: [id number] CT CERVICAL SPINE HISTORY: BACK PAIN TECHNIQUE: Contiguous 2.5 mm axial imaging performed through the entire cervical spine. Sagittal and coronal reformats also performed. All CT scans at [facility] use at least one of these do se optimization techniques: automated exposure control; mA and/or kV adjustment per patient size (inc ludes targeted exams where dose is matched to clinical indication); or iterative reconstruction. DLP: 1678.63 mGycm COMPARISON: 03/21/2018 Marked increase in the cervical lordosis. Anterior cervical fusion hardware extends from C5 through C 7. Anterior cervical plate and vertebral body screws are intact. No fractures. Complete fusion across the interbody spacers at C5-6 and C6-7. C5 anterolisthesis by 4 mm. C6 anterolisthesis by 4 mm. C7 anterolisthesis by 4 mm. Multilevel bilateral facet joint arthritis. There is bony fusion across the C3-4 LEFT facet joint. Ad ditional areas of diffusion and ankylosis across the C5-6 and C6-7 facet joints on the LEFT. Suspect partial fusion of the RIGHT C6-7 facet. Increased soft tissue surrounding the odontoid process. Severe narrowing of the predental space. C2-C3: Shallow central disc protrusion with bilateral facet arthritis. No high-grade stenosis. C3-C4: Marked LEFT facet joint arthritis and mild on the RIGHT. Moderate LEFT foraminal stenosis. C4-C5: Diffuse osteophytic ridging with severe bony hypertrophy at the facet joints, LEFT greater kathleen n RIGHT. Shallow central disc protrusion. Mild central with moderate to severe for bilateral foramina l narrowing. C5-C6: Severe bilateral facet joint hypertrophic bone formation resulting in moderate bilateral wilfredo inal stenosis. C6-C7: Severe osteophytic ridging. Mild bilateral foraminal stenosis. C7-T1: Mild foraminal narrowing. Chronic emphysematous changes at the lung apices. CT/CT cervical spin wo con* [id number] IMPRESSION: 1. Prior anterior cervical fusion from C5 through C7 with complete fusion acro ss the C5-6 and C6-7 disc spacers. Similar to the prior study. 2. Mild progression in increase in the cervical lordosis since the prior study . 3. C5, C6 and C7 anterolisthesis by 4 mm, stable. 4. Significant facet joint arthrosis and areas of facet joint fusion throughou t the cervical spine. Multi level areas of moderate to severe stenosis as descr ibed above. Very mild progression since 03/21/2018. C4-5 foraminal stenosis is no w moderate to severe.
--- NOTE | 2020-05-12 13:10 | CT_ITS ---
WS: [id number] CT THORACIC SPINE HISTORY: BACK PAIN TECHNIQUE: Contiguous 2.5 mm axial images are reviewed to thoracic spine. Images are reformatted in s agittal and coronal planes. All CT scans at [facility] use at least one of these dose opt imization techniques: automated exposure control; mA and/or kV adjustment per patient size (includes targeted exams where dose is matched to clinical indication); or iterative reconstruction. DLP: 1145.65 mGycm COMPARISON: None available. Moderate increase in the thoracic kyphosis. Mild RIGHT curvature thoracic spine. Posterior alignment is normal otherwise. Schmorl's nodes defects beginning at the T6 level through T12. Very slight anter ior compression of T6 and T7. Vacuum disc phenomenon begins at T5-6 through T11-12. T1-2: Normal. T2-3: Normal. T3-4: Normal. T4-5: Normal. T5-6: Normal. T6-7: Normal. T7-8: Normal. T8-9: Normal. T9-10: Bilateral facet joint arthritis with no stenosis. T10-11: Mild bilateral posterior facet arthritis with no stenosis. T11-12: Normal. Visualized lungs demonstrate emphysema. There is an area of groundglass attenuation incompletely visu alized in the RIGHT upper lobe. Mild ectasia and atherosclerosis of visualized aorta with cardiomegal y and coronary artery calcifications. CT/CT thoracic spin wo con* [id number] IMPRESSION: 1. Mild RIGHT convex curvature thoracic spine with moderate increased kyphosis . 2. There are no significant stenoses or disc protrusions throughout the thorac ic spine. 3. Multilevel mild to moderate spondylitic changes.
[2020-05-12] MEDS: iodixanol 320 mg/mL 100mL Btl IV (14:08)
== END 2020-05-12 13:02 | disposition home or self-care (01) ==
LOC: RADWPI 13:03
PROVIDERS: PCP Family Medicine; Visit Provider Family Medicine
DX: M54.89 Other dorsalgia (principal); R07.89 Other chest pain; I48.91 Unspecified atrial fibrillation; I25.10 Atherosclerotic heart disease of native coronary artery without angina pectoris; M81.0 Age-related osteoporosis without current pathological fracture; I51.7 Cardiomegaly; J43.9 Emphysema, unspecified; M43.22 Fusion of spine, cervical region
CPT/HCPCS: 71260; 72125; 72128; 77080; Q9967

== ENCOUNTER → 2020-05-27 14:56 | Outpatient (BNVA) | payer MEDICARE, OTHER, SELFPAY | PROVIDERS: PCP Family Medicine; Referring Provider Family Medicine; Visit Provider Orthopaedic Surgery | DX: M54.2 Cervicalgia (principal) | CPT/HCPCS: 72050 ==

== ENCOUNTER 2020-06-09 11:26 | Outpatient (CLI) | payer MEDICARE, OTHER, SELFPAY ==
--- NOTE | 2020-06-09 11:45 | MR_ITS ---
WS: [id number] MRI CERVICAL SPINE NONCONTRAST HISTORY: Z98.1 - Arthrodesis status COMPARISON: 05/12/2020 Technique: Multiplanar, multisequence noncontrast imaging of the cervical spine. Moderate increase in cervical lordosis. Anterior cervical fusion extends from C5 to C7. Anterior cerv ical plate with vertebral bodies fusion. There is fusion and interbody spacers at C5-6 and C6-7. No m arrow edema or fracture. Extensive degenerative disc disease throughout the cervical spine. Craniocervical junction, C1 and C2 relationship, odontoid process and soft tissues are normal. C2-C3: Mild annular disc bulging and osteophytic ridging. Small central disc protrusion is likely. No stenosis. C3-C4: Small osteophyte or calcified disc LEFT paracentral extending into the foramen. Only mild narr owing of the LEFT foramen. C4-C5: Diffuse osteophytic ridging and diffuse disc bulging. Disc osteophyte complexes effacing the v entral CSF and narrowing the foramen. Posterior facet joint arthritis encroaching from the posterior aspect. There is moderate central stenosis with bilateral foraminal stenosis. C5-C6: At the disc level there is very mild encroachment upon the ventral thecal sac. This is due to vertebral body osteophytes. Mild stenosis centrally and mild foraminal narrowing. C6-C7: Similar osteophytic ridging around the vertebral bodies contributing to mild central and wilfredo inal stenosis. Hypertrophic bone along the posterior aspect of C7 encroaches upon the ventral cord. B ilateral foraminal stenosis and mild central stenosis. C7-T1: Mild osteophytic ridging and facet joint arthritis encroaching posteriorly. Mild to moderate c entral and bilateral foraminal stenosis. Paraspinal soft tissue are normal. MR/MR cervical spin wo con* [id number] IMPRESSION: 1. Prior anterior cervical fusion with interbody spacers from C5 to C7. 2. Moderate central and bilateral foraminal stenosis at C4-5 due to combinatio n of disc disease and osteophyte and facet disease. 3. Mild to moderate central and bilateral foraminal stenosis at C7-T1. 4. No acute fracture. 5. Mild central and bilateral foraminal stenosis at C5-6.
== END 2020-06-09 11:27 | disposition home or self-care (01) ==
PROVIDERS: PCP Family Medicine; Visit Provider Orthopaedic Surgery
DX: Z98.1 Arthrodesis status (principal); M48.02 Spinal stenosis, cervical region; M48.03 Spinal stenosis, cervicothoracic region; M50.321 Other cervical disc degeneration at C4-C5 level
CPT/HCPCS: 72141

== ENCOUNTER 2020-06-24 13:33 | Outpatient (RCR) | payer MEDICARE, OTHER, SELFPAY | END 2020-07-16 23:59 | disposition home or self-care (01) | LOC: SPT 13:33 | PROVIDERS: PCP Family Medicine; Referring Provider Orthopaedic Surgery; Visit Provider Orthopaedic Surgery | DX: M54.2 Cervicalgia (principal) | CPT/HCPCS: 97110; 97161 ==

== ENCOUNTER → 2020-07-02 12:57 | Outpatient (BNVA) | payer MEDICARE, OTHER, SELFPAY | PROVIDERS: PCP Family Medicine; Visit Provider Internal Medicine Pulmonary Disease | DX: Z01.812 Encounter for preprocedural laboratory examination (principal); Z20.822 Contact with and (suspected) exposure to COVID-19 | CPT/HCPCS: 87635 ==

== ENCOUNTER 2020-07-06 07:57 | Outpatient (CLI) | payer MEDICARE, OTHER, SELFPAY ==
[2020-07-06 09:05] VITALS: BP 133/45; BP 167/82
--- NOTE | 2020-07-06 09:08 | PFTS_ITS ---
Date of Study:07/06/20 Date of Dictation: MECHANICS: Forced vital capacity (FVC) is normal. Forced expiratory volume in one second (FEV1) is normal. FEV1/FVC is normal. FLOW VOLUME LOOP: Normal. LUNG VOLUMES: Total lung capacity (TLC) is normal. Residual volume (RV) is normal. DIFFUSING CAPACITY FOR CARBON MONOXIDE: Normal. INTERPRETATION: The pulmonary function tests are normal. MTDD
== END 2020-07-06 07:58 | disposition home or self-care (01) ==
LOC: RT 08:00
PROVIDERS: PCP Family Medicine; Visit Provider Internal Medicine Pulmonary Disease
DX: R06.02 Shortness of breath (principal)
CPT/HCPCS: 94010; 94618; 94726; 94729

== ENCOUNTER 2020-07-17 06:00 | Outpatient (RCR) | payer MEDICARE, OTHER, SELFPAY | END 2020-08-16 23:59 | disposition home or self-care (01) | LOC: SPT 06:00 | PROVIDERS: PCP Family Medicine; Referring Provider Orthopaedic Surgery; Visit Provider Orthopaedic Surgery | DX: M54.2 Cervicalgia (principal) | CPT/HCPCS: 97110 ==

== ENCOUNTER 2020-07-23 10:18 | Outpatient (CLI) | payer MEDICARE, OTHER, SELFPAY ==
--- NOTE | 2020-07-23 10:45 | CT_ITS ---
WS: [id number] CT scan of the chest without IV contrast, additional two-dimensional coronal and sagittal reconstruct ion was performed. Additional supine imaging with inspiration and expiration and also prone inspirati on imaging was obtained. 07/23/2020 Clinical Data: interstitial lung disease Comparison: CT chest, 05/12/2020. DLP: 1082.[address] scans at [facility] use at least one of these dose optimization techniques: automat ed exposure control; mA and/or kV adjustment per patient size (includes targeted exams where dose is matched to clinical indication); or iterative reconstruction. Findings: The ground glass opacities in the right middle, right lower and right upper lobe have not changed in the last 2 1/2 months. The left lung remains clear. No air trapping is seen on the expiratory images. No nodules, masses or effusions are seen. There is coronary artery calcification. The heart size is slightly enlarged with no pericardial effusion. The pulmonary arterial system and thoracic aorta demo nstrate no abnormalities or dilatations. No pneumothorax is seen. Degenerative change of the thoracic vertebral bodies is noted. There is an anterior cervical disc fusion. There is no axillary or signif icant mediastinal adenopathy. The upper abdomen demonstrates no change from before. CT/CT chest wo con [id number] Impression: 1. Groundglass opacities in the right upper, middle and lower lobes unchanged. 2. Recommend repeat chest CT in 90 days.
== END 2020-07-23 10:19 | disposition home or self-care (01) ==
LOC: RADWPI 10:24
PROVIDERS: PCP Family Medicine; Visit Provider Internal Medicine Pulmonary Disease
DX: J84.9 Interstitial pulmonary disease, unspecified (principal)
CPT/HCPCS: 71250

== ENCOUNTER → 2020-07-27 11:01 | Outpatient (BNVA) | payer MEDICARE, OTHER, SELFPAY | PROVIDERS: PCP Family Medicine; Visit Provider Internal Medicine Rheumatology | DX: R91.8 Other nonspecific abnormal finding of lung field (principal); M19.90 Unspecified osteoarthritis, unspecified site; N18.9 Chronic kidney disease, unspecified; Z79.899 Other long term (current) drug therapy; Z86.16 Personal history of COVID-19; Z87.891 Personal history of nicotine dependence | CPT/HCPCS: 99204 ==

== ENCOUNTER 2020-07-27 12:46 | Outpatient (CLI) | payer MEDICARE, OTHER, SELFPAY ==
--- NOTE | 2020-07-27 12:54 | XRR_ITS ---
PROCEDURE INFORMATION: Exam: XR Left Hand Exam date and time: 07/27/2020 12:57 PM Age: 80 years old Clinical indication: Screening exam; Z79.899 - other [facility]ci (current) drug therapy TECHNIQUE: Imaging protocol: XR Left hand. Views: 3 or more views. COMPARISON: No relevant prior studies available. FINDINGS: Bones/joints: Negative for acute bony abnormality. 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 Soft tissues: Unremarkable XR/XR hand LT min 3V* [id number] IMPRESSION: 1. No acute findings. 2. Moderate osteoarthritis
--- NOTE | 2020-07-27 12:54 | XRR_ITS ---
PROCEDURE INFORMATION: Exam: XR Left Foot Exam date and time: 07/27/2020 12:57 PM Age: 80 years old Clinical indication: Screening exam; Z79.899 - other senior living (current) drug therapy TECHNIQUE: Imaging protocol: XR Left foot. Views: 3 or more views. COMPARISON: No relevant prior studies available. FINDINGS: Bones/joints: Negative for acute bony abnormality. Soft tissues: Normal. XR/XR foot LT min 3V* [id number] IMPRESSION: No acute findings.
--- NOTE | 2020-07-27 12:54 | XRR_ITS ---
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 Views: 3 or more views. COMPARISON: No relevant prior studies available. FINDINGS: Bones/joints: Negative for acute fracture or focal bony abnormality. The proximal phalange of the great toe is show short in length. Narrowing of the interphalangeal articulations are seen consistent with osteoarthritis. Soft tissues: Unremarkable XR/XR foot RT min 3V* [id number] IMPRESSION: No acute findings.
--- NOTE | 2020-07-27 12:54 | XRR_ITS ---
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 Views: 3 or more views. COMPARISON: No relevant prior studies available. FINDINGS: Bones/joints: Negative for acute bony abnormality Soft tissues: Normal. XR/XR hand RT min 3V* [id number] IMPRESSION: No acute findings.
[2020-07-27 13:35] LABS: Basophils % 0.5 %; Eosinophils # 0.3 10^3/uL (0.0-0.8); Eosinophils % 3.5 %; Hemoglobin 12.9 g/dL (11.7-16.6); Lymphocytes # 1.2 10^3/uL (0.8-4.8); Lymphocytes % 15.4 %; Mean Corpuscular HGB Conc 32.3 g/dL (30.0-36.0); Mean Corpuscular Hemoglobin 30.9 pg (28.0-34.0); Mean Corpuscular Volume 95.7 fL (80-94); Mean Platelet Volume 9.8 fL (7.4-10.4); Monocytes # 0.7 10^3/uL (0.2-0.9); Monocytes % 9.1 %; Neutrophils # 5.54 10^3/uL (1.8-7.7); Neutrophils % 71.1 %; Nucleated Red Blood Cells % 0 %; Platelet Count 197 10^3/cmm (130-400); Red Blood Count 4.18 10^6/uL (4.1-5.3); Red Cell Distribution Width 14.1 % (12.1-15.1); White Blood Count 7.8 10^3/uL (4.0-10.0)
[2020-07-27 14:20] LABS: Erythrocyte Sedimentation Rate 26 mm/hr (0-10)
[2020-07-27 14:36] LABS: 25 Hydroxy Vitamin D 34 ng/mL (30-100); Alanine Aminotransferase 11 U/L (0-41); Alkaline Phosphatase 64 IU/L (40-130); Aspartate Amino Transferase 17 U/L (0-40); C Reactive Protein 0.4 mg/L (0.0-4.9); Globulin 3.3 g/dL (1.3-4.6); Total Bilirubin 0.5 mg/dL (0.15-1.2); Total Protein 7.3 g/dL (6.6-8.7)
[2020-07-28 11:47] LABS: COMPLEMENT COMPONENT C3C 97 mg/dL; COMPLEMENT COMPONENT C4C 21 mg/dL
[2020-07-28 12:17] LABS: COMPLEMENT, TOTAL (CH50) >60 U/mL (31-60)
[2020-07-28 15:18] LABS: Cyclic Citrullinated Peptide <16 UNITS
[2020-07-30 12:52] LABS: CENTROMERE B ANTIBODY <1.0 NEG AI (<1.0 NEG); JO-1 ANTIBODY <1.0 NEG AI (<1.0 NEG); RNP ANTIBODY <1.0 NEG AI (<1.0 NEG); SCL-70 ANTIBODY <1.0 NEG AI (<1.0 NEG); SJOGREN'S ANTIBODY (SS-A) <1.0 NEG AI (<1.0 NEG); SM ANTIBODY <1.0 NEG AI (<1.0 NEG); SS-B <1.0 NEG AI (<1.0 NEG)
[2020-07-30 14:32] LABS: ANA SCREEN, IFA NEGATIVE (NEGATIVE)
[2020-08-01 14:18] LABS: THYROID PEROXIDASE ANTIBODIES 1 IU/mL (<9)
[2020-08-08 00:22] LABS: DNA AB (DS) CRITHIDIA,IFA POSITIVE (NEGATIVE)
== END 2020-07-27 12:47 | disposition home or self-care (01) ==
PROVIDERS: PCP Family Medicine; Visit Provider Internal Medicine Rheumatology
DX: M19.90 Unspecified osteoarthritis, unspecified site (principal); Z79.899 Other long term (current) drug therapy; R76.8 Other specified abnormal immunological findings in serum
CPT/HCPCS: 36415; 73130; 73630; 80076; 82306; 82565; 85025; 85651; 86140; 86160; 86162; 86235; 86255; 86376; 86431

== ENCOUNTER → 2020-08-30 14:12 | Outpatient (BNVA) | payer MEDICARE, OTHER, SELFPAY | PROVIDERS: PCP Family Medicine; Visit Provider Internal Medicine Rheumatology | DX: M19.90 Unspecified osteoarthritis, unspecified site (principal); M32.9 Systemic lupus erythematosus, unspecified; J84.89 Other specified interstitial pulmonary diseases; Z79.899 Other long term (current) drug therapy; R76.8 Other specified abnormal immunological findings in serum; N18.9 Chronic kidney disease, unspecified; Z86.16 Personal history of COVID-19; Z87.891 Personal history of nicotine dependence | CPT/HCPCS: 99214 ==

== ENCOUNTER → 2020-09-14 13:27 | Outpatient (BNVA) | payer MEDICARE, OTHER, SELFPAY | PROVIDERS: PCP Family Medicine; Visit Provider Internal Medicine Rheumatology | DX: M19.90 Unspecified osteoarthritis, unspecified site (principal); M32.9 Systemic lupus erythematosus, unspecified; Z79.899 Other long term (current) drug therapy | CPT/HCPCS: 36415; 80076; 81001; 82565; 82570; 84156; 85025; 86140 ==

== ENCOUNTER → 2020-12-29 13:22 | Outpatient (BNVA) | payer MEDICARE, OTHER, SELFPAY | PROVIDERS: PCP Family Medicine; Visit Provider Internal Medicine Rheumatology | DX: M19.90 Unspecified osteoarthritis, unspecified site (principal); M32.9 Systemic lupus erythematosus, unspecified; J84.89 Other specified interstitial pulmonary diseases; N18.9 Chronic kidney disease, unspecified; Z87.891 Personal history of nicotine dependence | CPT/HCPCS: 99214 ==

== ENCOUNTER 2021-01-24 12:04 | Outpatient (CLI) | payer MEDICARE, OTHER, SELFPAY ==
[2021-01-24 12:42] LABS: Basophils % 0.5 %; Eosinophils # 0.2 10^3/uL (0.0-0.8); Hematocrit 40.3 % (42.0-52.0); Hemoglobin 13.4 g/dL (11.7-16.6); Lymphocytes # 1.5 10^3/uL (0.8-4.8); Lymphocytes % 18.3 %; Mean Corpuscular HGB Conc 33.3 g/dL (30.0-36.0); Mean Corpuscular Hemoglobin 32.1 pg (28.0-34.0); Mean Corpuscular Volume 96.6 fl (80-94); Mean Platelet Volume 10.6 fL (7.4-10.4); Monocytes # 0.6 10^3/uL (0.2-0.9); Monocytes % 7.4 %; Neutrophils # 6.01 10^3/uL (1.8-7.7); Neutrophils % 71.3 %; Nucleated Red Blood Cells % 0 %; Platelet Count 198 10^3/cmm (130-400); Red Blood Count 4.17 10^6/uL (4.1-5.3); Red Cell Distribution Width 13.5 % (12.1-15.1); White Blood Count 8.4 10^3/uL (4.0-10.0)
[2021-01-24 13:10] LABS: Alanine Aminotransferase 11 U/L (0-41); Albumin Level 4.1 g/dL (3.5-5.2); Alkaline Phosphatase 72 IU/L (40-130); Aspartate Amino Transferase 15 U/L (0-40); C Reactive Protein 0.4 mg/L (0.0-4.9); Creatine Phosphokinase 70 U/L (39-308); Globulin 3.5 g/dL (1.3-4.6); Total Bilirubin 0.7 mg/dL (0.15-1.2); Total Protein 7.6 g/dL (6.6-8.7)
[2021-01-24 13:25] LABS: Bilirubin Urine Neg (Negative); Blood Urine Neg (Negative); Complement C3 110 mg/dL (90-180); Glucose Urine UA Norm (Normal); Ketones Urine Negative (Negative); Leukocyte Esterase Urine Negative (Negative); Nitrate Urine Negative (Negative); Protein Urine Trace (Negative); Urine Appearance Clear (CLEAR); Urine Color Yellow (Yellow); Urobilinogen Urine 1 mg/dL (Negative); pH Urine 5 (5-7)
[2021-01-24 13:26] LABS: Add Urine Culture? No; Bacteria Urine TRACE /hpf; Mucus Urine TRACE /hpf; WBC Urine 0-4 /hpf (0-5)
[2021-01-24 13:54] LABS: Urine Creatinine 245 mg/dL (39-259)
[2021-01-24 13:55] LABS: Urine Protein Random 26 mg/dL
== END 2021-01-24 12:05 | disposition home or self-care (01) ==
PROVIDERS: PCP Family Medicine; Visit Provider Internal Medicine Rheumatology
DX: M32.9 Systemic lupus erythematosus, unspecified (principal); R53.1 Weakness; R76.8 Other specified abnormal immunological findings in serum
CPT/HCPCS: 36415; 80076; 81001; 82550; 82565; 82570; 84156; 85025; 86140; 86160

== ENCOUNTER 2021-02-07 15:22 | Outpatient (CLI) | payer MEDICARE, OTHER, SELFPAY ==
--- NOTE | 2021-02-07 15:37 | CT_ITS ---
WS: [id number] CT CHEST TECHNIQUE: Noncontrast CT of the chest with coronal and sagittal reformatted images. CLINICAL INFORMATION: abnormal CT finding. History of COVID 19 Pneumonia COMPARISON: CT chest 07/23/2020 and 05/12/2020. DLP: 1114.[address] scans at [facility] use at least one of these dose optimization techniques: automated e xposure control; mA and/or kV adjustment per patient size (includes targeted exams where dose is matc hed to clinical indication); or iterative reconstruction. FINDINGS: Hyperinflation. Moderate chronic emphysematous changes. Previously described hazy groundglass infiltr ates in the right lower lobe, right upper lobe, and right middle lobe are unchanged from previous exa mination. Left lung is well aerated. No focal consolidation or pleural fluid. Aortic calcification. Coronary calcification. No mediastinal or hilar lymphadenopathy. No axillary ly mphadenopathy. Adrenal glands are normal. Normal GE junction. Fatty atrophy of the pancreas. No significant air trapping on the expiratory imaging. Moderate thoracic kyphosis. Chronic anterior w edging in the mid thoracic spine with endplate Schmorl's nodes. CT/CT chest wo con [id number] IMPRESSION: 1. No change in the hazy groundglass infiltrates in the right lower lobe, righ t middle lobe, and right upper lobe. 2. No new or progressive infiltrates. 3. No air trapping on the excretory imaging. 4. No mediastinal or hilar lymphadenopathy. 5. Coronary calcification.
== END 2021-02-07 15:23 | disposition home or self-care (01) ==
PROVIDERS: PCP Family Medicine; Visit Provider Family Medicine
DX: R93.89 Abnormal findings on diagnostic imaging of other specified body structures (principal); Z86.16 Personal history of COVID-19; I25.10 Atherosclerotic heart disease of native coronary artery without angina pectoris
CPT/HCPCS: 71250

== ENCOUNTER 2021-02-07 22:13 | Emergency (ER) | payer MEDICARE, OTHER, SELFPAY ==
--- NOTE | 2021-02-07 22:29 | ECG_ITS ---
[facility] Test Date: 2021-02-07 Pat Name: Isaac Blanco Department: Room: Gender: Male Threader: : 1940 Requested By: Serenity Sierra Order Number: [id number] Radha MD: Garcia Chaparro M.D. Measurements Intervals [place] Rate: 73 P: NE: QRS: 4 QRSD: 114 T: -19 QT: 412 QTc: 456 Interpretive Statements ATRIAL FIBRILLATION VOLTAGE CRITERIA FOR LVH [MEETS CRITERIA IN ONE OF: R(aVL), S(V1), R(V5), R(V5/V6)+S(V1)] POSSIBLE INFERIOR MYOCARDIAL INFARCTION , OF INDETERMINATE AGE [30 ms Q WAVE IN II/aVF] ST DEVIATION AND MODERATE T-WAVE ABNORMALITY, CONSIDER LATERAL ISCHEMIA [-0.1+ mV T-WAVE IN I/aVL/V5/V6] Compared to ECG 04/08/2020 13:10:37 Myocardial infarct finding now present T-wave abnormality now present Possible ischemia now present ST (T wave) deviation no longer present Electronically Signed On 02-09-2021 17:41:05 HUMAN RESOURCES DIRECTOR by Garcia Chaparro M.D. [email or web address]
--- NOTE | 2021-02-07 22:29 | XRR_ITS ---
PROCEDURE INFORMATION: Exam: XR Chest Exam date and time: 02/07/2021 10:29 PM Age: 80 years old Clinical indication: Sternal or substernal pain; Prior surgery; Surgery type: Neck; Additional info: Cp TECHNIQUE: Imaging protocol: XR of the chest. Views: 1 view. COMPARISON: CT chest con [id number] 02/07/2021 3:46 PM FINDINGS: Lungs: Stable COPD . Pleural spaces: Unremarkable. No pleural effusion. No pneumothorax. Heart/Mediastinum: Unremarkable. No cardiomegaly. Bones/joints: Stable postoperative metallic fixation of the cervical spine with or without metallic artifact. XR/XR chest 1V portable [id number] IMPRESSION: Stable COPD . Radiation Dose CTDIVOL = (mGy): DLP = (mGy-cm)
[2021-02-07 22:34] VITALS: BP 155/65; PULSE 65; RESP 18; TEMP 36.4; O2SAT 96; BMI 22.8
[2021-02-07 22:59] LABS: Basophils % 0.4 %; Eosinophils # 0.3 10^3/uL (0.0-0.8); Hematocrit 37.1 % (42.0-52.0); Hemoglobin 12.7 g/dL (11.7-16.6); Lymphocytes # 1.5 10^3/uL (0.8-4.8); Lymphocytes % 18.6 %; Mean Corpuscular HGB Conc 34.2 g/dL (30.0-36.0); Mean Corpuscular Hemoglobin 31.6 pg (28.0-34.0); Mean Corpuscular Volume 92.3 fl (80-94); Mean Platelet Volume 10.4 fL (7.4-10.4); Monocytes # 0.6 10^3/uL (0.2-0.9); Monocytes % 7.4 %; Neutrophils # 5.77 10^3/uL (1.8-7.7); Neutrophils % 70.2 %; Nucleated Red Blood Cells % 0 %; Platelet Count 201 10^3/cmm (130-400); Red Blood Count 4.02 10^6/uL (4.1-5.3); Red Cell Distribution Width 13.3 % (12.1-15.1); White Blood Count 8.2 10^3/uL (4.0-10.0)
--- NOTE | 2021-02-07 23:18 | ED_ITS ---
HPI - Chest Pain General: Chief Complaint: Chest Pain Stated Complaint: A Fib Time Seen by Provider: 02/07/21 22:56 Source: patient Mode of arrival: ambulatory Limitations: no limitations History of Present Illness: HPI narrative: 80-year-old male has a history of A. fib states that he had had chest pain today. He states he gets chest pain often but typically goes with 1 nitro he states he did take 3 nitro today and just now had his pain relieved. He states the pain started 8 PM. He saw his glass grinder Dr. Arteaga 2 weeks ago who is scheduling him an outpatient stress test. He denies any diaphoresis denies any vomiting denies any shortness of breath. Denies any pain currently Associated symptoms: Reports palpitations; Deny abdominal pain, dyspnea, fever(s), nausea or vomiting Review of Systems Const: Denies: fever(s), chills, body aches or change in appetite Eyes: Denies: blurry vision or eye discomfort ENMT: Denies: throat pain or dental pain Card: Reports: chest pain and palpitations Resp: Denies: dyspnea GI: Denies: abdominal pain, nausea, vomiting or diarrhea : Denies: dysuria Musc: Denies: neck pain or back pain Skin/Breast: Denies: rash Neuro: Denies: headache(s) Psych: Denies: depression Ever/Lymph: Denies: easy bruising All/Imm: Denies: urticaria PFSH ED PFSH: Medical History Anticoagulation adequate with anticoagulant therapy 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 Atrial fibrillation CAD (coronary artery disease) Chronic kidney disease (CKD) CKD (chronic kidney disease) Dyslipidemia Essential hypertension GERD (gastroesophageal reflux disease) Ground glass opacity present on imaging of lung History of nonmelanoma skin cancer Inflammatory arthritis NSIP (nonspecific interstitial pneumonia) Peripheral neuropathy SLE (systemic lupus erythematosus related syndrome) Sleep apnea TIA (transient ischemic attack) Surgical History History of coronary angiogram History of neck surgery History of shoulder surgery History of surgery on wrist Family History Other CAD (coronary artery disease) Diabetes Hypertension Denies family history of Rheumatoid arthritis Lupus Lung disease Cancer Stroke Social History Smoking and tobacco status: former smoker Quit status (tobacco): has quit using tobacco Year quit tobacco: 1959 Former quit date comment: Hx of 1 PPD x 10 Years Second hand smoke exposure: No Smoking risk assessment/counseling performed?: Yes Alcohol intake: never Counseling given: No Counseling given: No Lives independently: Yes Household members: spouse Marital status: service: Yes Current occupational status: retired Pets and animals: No History of recent travel: No Current gender identity: Male Physical Exam Const: COMMON NORMALS: no acute distress, patient oriented x3 and healthy appearing HENMT: COMMON NORMALS: normocephalic and atraumatic HEAD & SCALP: normocephalic and atraumatic Eye: COMMON NORMALS: Equal, round and reactive pupils present and EOMs intact bilaterally PUPIL: Yes Equal, round and reactive pupils present Neck/C-Spine: COMMON NORMALS: full ROM and supple Chest: COMMONS NORMALS: normal inspection of the chest and normal palpation of entire chest wall Resp: COMMON NORMALS: normal respiratory effort, No retractions, No use of accessory muscles and clear to auscultation bilaterally AUSCULTATION: clear to auscultation bilaterally Cardio: COMMON NORMALS: No murmurs present (Cardio) RATE: tachycardic RHYTHM: abnormal rhythm irregularly irregular GI: COMMON NORMALS: Normal to inspection, nondistended, normoactive bowel sounds present, Soft to palpation, non-tender and no masses PALPATION: Yes Soft to palpation Extremity: COMMON NORMALS: normal to inspection and full ROM Neuro: COMMON NORMALS: patient oriented x3, moves all extremities and no focal motor deficits Psych: COMMON NORMALS: mental status grossly normal, Normal thought process present and cooperative THOUGHT PROCESS: Normal thought process present Skin: COMMON NORMALS: no rashes or lesions noted and no wounds GENERAL SKIN EXAM: no rashes or lesions noted Course Vital Signs: Vital signs: Vital Signs Temperature 97.5 F L 02/07/21 22:34 Pulse Rate 67 02/08/21 01:10 Respiratory Rate 18 02/07/21 22:34 Blood Pressure 120/63 02/08/21 01:10 Pulse Oximetry 96 02/07/21 22:34 MDM - Chest Pain MDM Narrative: Medical decision making narrative: Patient presents with chest pain is since resolved his initial repeat troponin here normal is no signs of acute coronary syndrome at this time no signs of pulmonary embolism. He is scheduled outpatient stress is to call the cardiology office in the morning. He is return if he has any worsening symptoms he understands and agrees to plan. Lab Data: Labs: Lab Results 02/07/21 02/07/21 02/07/21 20:45 22:45 22:45 WBC 8.2 10^3/uL 10^3/ uL (4.0-10.0) RBC 4.02 10^6/uL L 10 ^6/uL (4.1-5.3) Hgb 12.7 g/dL g/dL (11.7-16.6) Hct 37.1 % L % (42.0-52.0) MCV 92.3 fl fl (80-94) MCH 31.6 pg pg (28.0-34.0) MCHC 34.2 g/dL g/dL (30.0-36.0) RDW 13.3 % % (12.1-15.1) Plt Count 201 10^3/cmm 10^3 /cmm (130-400) MPV 10.4 fL fL (7.4-10.4) Neut % (Auto) 70.2 % % Lymph % (Auto) 18.6 % % [place] % (Auto) 7.4 % % Eos % (Auto) 3.0 % % Baso % (Auto) 0.4 % % Neut # (Auto) 5.77 10^3/uL 10^3 /uL (1.8-7.7) Lymph # (Auto) 1.5 10^3/uL 10^3/ uL (0.8-4.8) [place] # (Auto) 0.6 10^3/uL 10^3/ uL (0.2-0.9) Eos # (Auto) 0.3 10^3/uL 10^3/ uL (0.0-0.8) Baso # (Auto) 0.0 10^3/uL 10^3/ uL (0.0-0.1) Nucleated RBC % (a uto) 0 % % Nucleated RBCs # 0.0 /100WBC /100W BC Sodium 140 mmol/L mmol/L (136-145) Potassium 3.7 mmol/L mmol/L (3.5-5.1) Chloride 105 mmol/L mmol/L (98-107) Carbon Dioxide 23 mmol/L mmol/L (22-29) Anion Gap 15.7 (5-19) BUN 29 mg/dL H mg/dL (8-23) Creatinine 1.5 mg/dL H mg/dL (0.7-1.2) GFR Calculation Not Reportable Glucose 133 mg/dL H mg/dL (65-115) Calculated Osmolal ity 298 mOsm/kg H mOs m/kg (285-295) Calcium 8.4 mg/dL L mg/dL (8.5-10.5) Total Bilirubin 0.3 mg/dL mg/dL (0.15-1.2) AST 15 U/L U/L (0-40) ALT 12 U/L U/L (0-41) Alkaline Phosphata se 74 IU/L IU/L (40-130) Troponin T Baselin e Troponin T 120 Min [place] Troponin T Total Protein 7.4 g/dL g/dL (6.6-8.7) Albumin 4.0 g/dL g/dL (3.5-5.2) Globulin 3.4 g/dL g/dL (1.3-4.6) 02/07/21 02/08/21 22:45 00:42 WBC RBC Hgb Hct MCV MCH MCHC RDW Plt Count MPV Neut % (Auto) Lymph % (Auto) [place] % (Auto) Eos % (Auto) Baso % (Auto) Neut # (Auto) Lymph # (Auto) [place] # (Auto) Eos # (Auto) Baso # (Auto) Nucleated RBC % (a uto) Nucleated RBCs # Sodium Potassium Chloride Carbon Dioxide Anion Gap BUN Creatinine GFR Calculation Glucose Calculated Osmolal ity Calcium Total Bilirubin AST ALT Alkaline Phosphata se Troponin T Baselin e 16 ng/L H ng/L (0-15) Troponin T 120 Min [place] 17.73 ng/L H ng/L (0-15) [place] Troponin T 1.73 ABS# ABS# (0-10) Total Protein Albumin Globulin Imaging Data^: CXR: Attestation: I personally reviewed and interpreted this imaging study as follows: Radiologist's impression: [address] [address] XRay Report Signed Patient: Isaac Blanco Unit #: [id number] : 1940 Age/Sex: 80 / M ADM Date: 02/07/21 Loc: ER Room/Bed: Attending Dr: Ordering Provider/Ordering MD: Serenity Sierra MD Date of Service: 02/07/21 Procedure(s): XR chest 1V portable [id number] Accession Number(s): [id number] Report Number: [id number] PROCEDURE INFORMATION: Exam: XR Chest Exam date and time: 02/07/2021 10:29 PM Age: 80 years old Clinical indication: Sternal or substernal pain; Prior surgery; Surgery type: Neck; Additional info: Cp TECHNIQUE: Imaging protocol: XR of the chest. Views: 1 view. COMPARISON: CT chest [facility] [id number] 02/07/2021 3:46 PM FINDINGS: Lungs: Stable COPD . Pleural spaces: Unremarkable. No pleural effusion. No pneumothorax. Heart/Mediastinum: Unremarkable. No cardiomegaly. Bones/joints: Stable postoperative metallic fixation of the cervical spine with or without metallic artifact. XR/XR chest 1V portable [id number] IMPRESSION: Stable COPD . Radiation Dose CTDIVOL = (mGy): DLP = (mGy-cm) Dictated By: Dallas Pearson MD Signed By: Dallas Pearson MD Signed Date/Time: 02/07/212357 DD/ 28 EKG Data^: EKG 1: Attestation: I personally reviewed and interpreted this EKG as follows: EKG interpretation date: 02/07/21 EKG interpretation time: 22:24 Interpretation: afib hr [address] depressionin lateral lead unchanged from previous ekg qrs 114 qtc 438 EKG 2: Attestation: I personally reviewed and interpreted this EKG as follows: EKG interpretation date: 02/08/21 EKG interpretation time: 00:51 Interpretation: afib hr [address] depression lateral leads unchanged qrs 108 qtc 438 Discharge Plan Discharge Patient Disposition: Home Clinical Impression: Chest pain Condition: Stable Prescriptions: No Action pantoprazole 40 mg tablet,delayed release (DR/EC) 40 mg PO DAILY RF: 0 Eliquis 5 mg tablet 2.5 mg PO BID@1000,2100 RF: 0 saw palmetto 450 mg capsule 450 mg PO BID@1000,2100 RF: 0 ketoconazole 2 % shampoo 1 applic topical .2 x weekly Qty: 120 RF: 3 ketoconazole 2 % cream 1 applic topical BID Qty: 30 RF: 2 fluticasone propionate [Flonase Allergy Relief] 50 mcg/actuation spray,suspension 1 spray intranasal DAILY RF: 0 mycophenolate mofetil [CellCept] 500 mg tablet 500 mg PO BID Qty: 180 RF: 0 multivitamin Tablet 1 tab PO DAILY@1000 RF: 0 atorvastatin 40 mg tablet 40 mg PO DAILY RF: 0 acetaminophen 500 mg Tablet 500 mg PO DAILY@1000 RF: 0 magnesium 250 mg Tablet 250 mg PO DAILY@1000 RF: 0 vitamin B complex 1 tab PO DAILY@1000 RF: 0 nitroglycerin 0.4 mg tablet, sublingual 0.4 mg sublingual Q5M PRN (Reason: chest pains) RF: 0 aspirin 81 mg Tablet,Delayed Release (Dr/Ec) 81 mg PO DAILY@1000 RF: 0 metoprolol tartrate 25 mg Tablet 25 mg PO BID@0900,2100 Qty: 60 RF: 0 isosorbide mononitrate 120 mg tablet extended release 24 hr 120 mg PO DAILY Qty: 30 RF: 0 Discharge Orders: Discharge ED (Routine); Ordered 02/08/21 Ordered By: Serenity Sierra Referrals: Nikita Mosher MD [Primary Care Provider] - 1-3 days Discharge Diet: Advance as tolerated Discharge Activity: Resume usual activity Patient Instructions: Chest Pain (ED) Coding Level of Care Code ED [employer] Professor for Chg Fwd Exam Comprehensive
[2021-02-07 23:38] LABS: Troponin(5th) Baseline 16 ng/L (0-15)
[2021-02-07 23:41] LABS: Alanine Aminotransferase 12 U/L (0-41); Alkaline Phosphatase 74 IU/L (40-130); Anion Gap 15.7 (5-19); Aspartate Amino Transferase 15 U/L (0-40); Blood Urea Nitrogen 29 mg/dL (8-23); Calcium 8.4 mg/dL (8.5-10.5); Carbon Dioxide 23 mmol/L (22-29); Chloride 105 mmol/L (98-107); Globulin 3.4 g/dL (1.3-4.6); Glucose 133 mg/dL (65-115); Osmolality Calculated 298 mOsm/kg (285-295); Potassium 3.7 mmol/L (3.5-5.1); Sodium 140 mmol/L (136-145); Total Bilirubin 0.3 mg/dL (0.15-1.2); Total Protein 7.4 g/dL (6.6-8.7)
[2021-02-07 23:43] LABS: Creatinine Clr Calc Pharmacy 36.6558
--- NOTE | 2021-02-08 00:29 | ECG_ITS ---
[facility] Test Date: 2021-02-08 Pat Name: Isaac Blanco Department: Room: Gender: Male Pathology Technician: : 1940 Requested By: Serenity Sierra Order Number: [id number] Radha MD: Garcia Chaparro M.D. Measurements Intervals [place] Rate: 64 P: IN: QRS: 29 QRSD: 108 T: -68 QT: 429 QTc: 444 Interpretive Statements ATRIAL FIBRILLATION MINIMAL VOLTAGE CRITERIA FOR LVH, CONSIDER NORMAL VARIANT [MEETS CRITERIA IN ONE OF: R(aVL), S(V1), R(V5), R(V5/V6)+S(V1)] PROBABLE INFERIOR MYOCARDIAL INFARCTION , OF INDETERMINATE AGE [35 ms Q WAVE IN II/aVF] ST DEVIATION AND MODERATE T-WAVE ABNORMALITY, CONSIDER LATERAL ISCHEMIA [-0.1+ mV T-WAVE IN I/aVL/V5/V6] Compared to ECG 04/08/2020 13:10:37 Myocardial infarct finding now present T-wave abnormality now present Possible ischemia now present ST (T wave) deviation no longer present Electronically Signed On 02-09-2021 17:47:17 MEDICAL ESTHETICIAN by Garcia Chaparro M.D. [id number]
[2021-02-08 01:10] VITALS: BP 120/63; PULSE 67
--- NOTE | 2021-02-08 01:12 | PC.NURSE ---
pt states his chest is 'discomfort'
[2021-02-08 01:29] LABS: Troponin 5 2HR 17.73 ng/L (0-15); Troponin 5 2HR Delta 1.73 ABS# (0-10)
[2021-02-08 01:55] VITALS: BP 114/60; PULSE 69
== END 2021-02-08 01:57 | disposition home or self-care (01) ==
PROVIDERS: Emergency Provider Emergency Medicine; PCP Family Medicine
DX: R07.9 Chest pain, unspecified (principal); I25.110 Atherosclerotic heart disease of native coronary artery with unstable angina pectoris; Z87.891 Personal history of nicotine dependence; I25.10 Atherosclerotic heart disease of native coronary artery without angina pectoris; I13.10 Hypertensive heart and chronic kidney disease without heart failure, with stage 1 through stage 4 chronic kidney disease, or unspecified chronic kidney disease; N18.9 Chronic kidney disease, unspecified; I10 Essential (primary) hypertension; E78.5 Hyperlipidemia, unspecified; I48.91 Unspecified atrial fibrillation; Z79.01 Long term (current) use of anticoagulants
CPT/HCPCS: 71045; 80053; 84484; 85025; 93005; 99283

== ENCOUNTER 2021-02-10 11:44 | Emergency (ER) | payer MEDICARE, OTHER, SELFPAY ==
[2021-02-10 11:55] VITALS: BP 132/64; PULSE 58; RESP 14; TEMP 36.3; O2SAT 97; BMI 22.8
--- NOTE | 2021-02-10 12:09 | ECG_ITS ---
[facility] Test Date: 2021-02-10 Pat Name: Isaac Blanco Department: Room: Gender: Male Bottle Blower: : 1940 Requested By: Rosy Garcia Order Number: [id number] Radha MD: SOFIE JOYCE Measurements Intervals [place] Rate: 58 P: 64 AK: 204 QRS: -7 QRSD: 108 T: 217 QT: 469 QTc: 461 Interpretive Statements SINUS BRADYCARDIA LEFT VENTRICULAR HYPERTROPHY AND ST-T CHANGE [VOLTAGE CRITERIA PLUS ST/T ABNORMALITY] POSSIBLE INFERIOR MYOCARDIAL INFARCTION , OF INDETERMINATE AGE [30 ms Q WAVE IN II/aVF] Compared to ECG 02/08/2021 00:51:40 ST (T wave) deviation now present Atrial fibrillation no longer present T-wave abnormality no longer present Possible ischemia no longer present Myocardial infarct finding still present Electronically Signed On 02-11-2021 14:30:44 LIQUEFACTION AND REGASIFICATION HELPER by SOFIE JOYCE [email or web address]
--- NOTE | 2021-02-10 12:13 | W.ED.NEUROSD ---
HPI - Neuro Symptoms/Deficit General: Chief Complaint: Neuro Symptoms/Deficit Stated Complaint: Low BP, Dizziness Time Seen by Provider: 02/10/21 11:59 Source: patient, family, EMS and old records reviewed History of Present Illness: HPI Narrative: 80-year-old male had just taken a shower today, when he started to feel dizzy, weak, like he is in a pass out. His noted that he was pale, with decreased responsiveness. He did not fall or hit his head. He has had similar symptoms in the past, often when he is walking or has been standing upright for too long. His blood pressure normally runs low , but it has been lower than usual lately: 80s to 90s over 50s. He does have dizziness almost every time he gets up and tries to walk. He is complaining that his gait is unsteady, and he feels like his speech is slightly slurred, feels generally weak. No fever, no chest pain, no difficulty breathing. He took all of his morning medication this morning including his metoprolol. Onset (ago): hour(s) Timing confirmed by: spouse Associated symptoms: Reports diaphoresis and syncope; Deny chest pain, headache(s), nausea or vomiting Review of Systems General: Reports: 10 or more systems reviewed and unremarkable except in HPI and below Const: Reports: diaphoresis; Denies: fever(s), chills, body aches or change in appetite Eyes: Denies: change in vision, blurry vision or blind spots ENMT: Denies: throat pain or uvular edema Card: Reports: lightheadedness, syncope and pre-syncope; Denies: chest pain, palpitations or irregular heart rhythm Resp: Denies: dyspnea, productive cough or non-productive cough GI: Denies: abdominal pain, nausea or vomiting Musc: Denies: neck pain or back pain Skin/Breast: Denies: rash, pruritus or erythema Neuro: Reports: difficulty walking and dizziness; Denies: headache(s) Endo: Reports: tired all the time; Denies: polyuria or polydipsia Ever/Lymph: Reports: easy bruising and easy bleeding All/Imm: Denies: urticaria or throat swelling PFSH ED PFSH: Medical History Anticoagulation adequate with anticoagulant therapy 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 Atrial fibrillation CAD (coronary artery disease) Chronic kidney disease (CKD) CKD (chronic kidney disease) Dyslipidemia Essential hypertension GERD (gastroesophageal reflux disease) Ground glass opacity present on imaging of lung History of nonmelanoma skin cancer Inflammatory arthritis NSIP (nonspecific interstitial pneumonia) Peripheral neuropathy SLE (systemic lupus erythematosus related syndrome) Sleep apnea TIA (transient ischemic attack) Surgical History History of coronary angiogram History of neck surgery History of shoulder surgery History of surgery on wrist Family History Other CAD (coronary artery disease) Diabetes Hypertension Denies family history of Rheumatoid arthritis Lupus Lung disease Cancer Stroke Social History Smoking and tobacco status: former smoker Quit status (tobacco): has quit using tobacco Year quit tobacco: 1959 Former quit date comment: Hx of 1 PPD x 10 Years Second hand smoke exposure: No Smoking risk assessment/counseling performed?: Yes Alcohol intake: never Counseling given: No Counseling given: No Lives independently: Yes Household members: spouse Marital status: service: Yes Current occupational status: retired Pets and animals: No History of recent travel: No Current gender identity: Male Physical Exam Const: COMMON NORMALS: patient oriented x3, alert and well nourished GENERAL APPEARANCE: lethargic, ill appearing, frail appearing and Limp noted; not in distress ORIENTATION/CONSCIOUSNESS: Yes oriented to person, Yes oriented to place, Yes oriented to time and Yes lethargic HENMT: COMMON NORMALS: normocephalic and atraumatic HEAD & SCALP: normocephalic and atraumatic FACE & SINUS: normal facial exam and face symmetric MOUTH: Normal oral and palatal mucosa present and tongue normal THROAT: no uvular edema Eye: COMMON NORMALS: Equal, round and reactive pupils present, EOMs intact bilaterally, conjunctivae normal and no scleral icterus CONJUNCTIVA: Yes conjunctivae normal PUPIL: Yes Equal, round and reactive pupils present Neck/C-Spine: COMMON NORMALS: full ROM, no lymphadenopathy, supple and no JVD Resp: COMMON NORMALS: normal respiratory effort, No retractions and No use of accessory muscles Cardio: COMMON NORMALS: no JVD RATE: bradycardic RHYTHM: abnormal rhythm irregularly irregular GI: COMMON NORMALS: Normal to inspection, nondistended, normoactive bowel sounds present and non-tender Extremity: COMMON NORMALS: normal to inspection, full ROM, capillary refill normal and no clubbing, cyanosis or edema Neuro: COMMON NORMALS: patient oriented x3, CN's II-XII intact bilaterally, moves all extremities, no focal motor deficits and no sensory deficits noted SENSORIUM/ORIENTATION: Yes alert, Yes oriented to person, Yes oriented to place, Yes oriented to time and Yes lethargic COORDINATION/BALANCE: [id number] test normal SPEECH: speech normal COORDINATION: [id number] test normal Skin: COMMON NORMALS: no rashes or lesions noted, no wounds, turgor normal and no jaundice GENERAL SKIN EXAM: no rashes or lesions noted and turgor normal Course Vital Signs: Vital signs: Vital Signs Temperature 97.3 F L 02/10/21 11:55 Pulse Rate 56 L 02/10/21 15:25 Respiratory Rate 16 02/10/21 15:25 Blood Pressure 130/61 02/10/21 15:25 Pulse Oximetry 94 02/10/21 15:25 MDM - Neuro Symptoms/Deficit MDM Narrative: Medical decision making narrative: 80-year-old has had multiple episodes of orthostatic dizziness and presyncope over the past several weeks, most recent episode was this morning after taking a shower. No focal neuro deficits on exam. Blood pressure and symptoms improved with a 500 cc bolus, Frequent bradycardia down into the 40s, increased to 70s on standing. No acute changes on EKG, lab work stable, UA clear. Recommended that he decrease his metoprolol down to 12.5 mg twice daily and discontinue amlodipine completely. 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 Fall precautions, Return immediately for recurrent dizziness or syncope. Differential Diagnosis: Neuro Differential Diagnosis: Likely cerebrovascular accident and transient cerebral ischemia Medical Records: Attestation: I reviewed the patient's medical records. Lab Data: Attestation: I reviewed the patient's lab results. Labs: Lab Results 02/10/21 02/10/21 02/10/21 12:17 12:17 12:17 WBC 6.8 10^3/uL 10^3/ uL (4.0-10.0) RBC 4.34 10^6/uL 10^6 /uL (4.1-5.3) Hgb 13.6 g/dL g/dL (11.7-16.6) Hct 41.7 % L % (42.0-52.0) MCV 96.1 fl H fl (80-94) MCH 31.3 pg pg (28.0-34.0) MCHC 32.6 g/dL g/dL (30.0-36.0) RDW 13.4 % % (12.1-15.1) Plt Count 201 10^3/cmm 10^3 /cmm (130-400) MPV 10.3 fL fL (7.4-10.4) Neut % (Auto) 72.2 % % Lymph % (Auto) 15.8 % % [place] % (Auto) 8.0 % % Eos % (Auto) 3.1 % % Baso % (Auto) 0.3 % % Neut # (Auto) 4.88 10^3/uL 10^3 /uL (1.8-7.7) Lymph # (Auto) 1.1 10^3/uL 10^3/ uL (0.8-4.8) [place] # (Auto) 0.5 10^3/uL 10^3/ uL (0.2-0.9) Eos # (Auto) 0.2 10^3/uL 10^3/ uL (0.0-0.8) Baso # (Auto) 0.0 10^3/uL 10^3/ uL (0.0-0.1) Nucleated RBC % (a uto) 0 % % Nucleated RBCs # 0.0 /100WBC /100W BC Sodium Cancelled Potassium Cancelled Chloride Cancelled Carbon Dioxide Cancelled Anion Gap Cancelled BUN Cancelled Creatinine Cancelled GFR Calculation Cancelled Glucose Cancelled Calculated Osmolal ity Cancelled Calcium Cancelled Magnesium Cancelled Total Bilirubin Cancelled AST Cancelled ALT Cancelled Alkaline Phosphata se Cancelled Troponin T Baselin e Cancelled Troponin T [address] [place] Troponin T Total Protein Cancelled Albumin Cancelled Globulin Cancelled Urine Color Urine Appearance Urine pH Ur Specific Gravit y Urine Protein Urine Glucose (UA) Urine Ketones Urine Blood Urine Nitrate Urine Bilirubin Urine Urobilinogen Ur Leukocyte Ursula ase 02/10/21 02/10/21 02/10/21 12:35 12:35 14:23 WBC RBC Hgb Hct MCV MCH MCHC RDW Plt Count MPV Neut % (Auto) Lymph % (Auto) [place] % (Auto) Eos % (Auto) Baso % (Auto) Neut # (Auto) Lymph # (Auto) [place] # (Auto) Eos # (Auto) Baso # (Auto) Nucleated RBC % (a uto) Nucleated RBCs # Sodium 139 mmol/L mmol/L (136-145) Potassium 4.0 mmol/L mmol/L (3.5-5.1) Chloride 103 mmol/L mmol/L (98-107) Carbon Dioxide 24 mmol/L mmol/L (22-29) Anion Gap 16.0 (5-19) BUN 24 mg/dL H mg/dL (8-23) Creatinine 1.5 mg/dL H mg/dL (0.7-1.2) GFR Calculation Not Reportable Glucose 128 mg/dL H mg/dL (65-115) Calculated Osmolal ity 294 mOsm/kg mOsm/ kg (285-295) Calcium 8.7 mg/dL mg/dL (8.5-10.5) Magnesium 2.1 mg/dL mg/dL (1.7-2.3) Total Bilirubin 0.5 mg/dL mg/dL (0.15-1.2) AST 14 U/L U/L (0-40) ALT 10 U/L U/L (0-41) Alkaline Phosphata se 72 IU/L IU/L (40-130) Troponin T Baselin e 19 ng/L H ng/L (0-15) Troponin T [address] [place] 15.08 ng/L H ng/L (0-15) Delta Troponin T -3.92 ABS# L ABS# (0-10) Total Protein 6.9 g/dL g/dL (6.6-8.7) Albumin 3.7 g/dL g/dL (3.5-5.2) Globulin 3.2 g/dL g/dL (1.3-4.6) Urine Color Urine Appearance Urine pH Ur Specific Gravit y Urine Protein Urine Glucose (UA) Urine Ketones Urine Blood Urine Nitrate Urine Bilirubin Urine Urobilinogen Ur Leukocyte Ursula ase 02/10/21 14:34 WBC RBC Hgb Hct MCV MCH MCHC RDW Plt Count MPV Neut % (Auto) Lymph % (Auto) [place] % (Auto) Eos % (Auto) Baso % (Auto) Neut # (Auto) Lymph # (Auto) [place] # (Auto) Eos # (Auto) Baso # (Auto) Nucleated RBC % (a uto) Nucleated RBCs # Sodium Potassium Chloride Carbon Dioxide Anion Gap BUN Creatinine GFR Calculation Glucose Calculated Osmolal ity Calcium Magnesium Total Bilirubin AST ALT Alkaline Phosphata se Troponin T Baselin e Troponin T [address] [place] Troponin T Total Protein Albumin Globulin Urine Color Yellow (Yellow) Urine Appearance Clear (CLEAR) Urine pH 6.5 (5-7) Ur Specific Gravit y 1.010 (1.005-1.030) Urine Protein Neg (Negative) Urine Glucose (UA) Norm (Normal) Urine Ketones Negative (Negative) Urine Blood Neg (Negative) Urine Nitrate Negative (Negative) Urine Bilirubin Neg (Negative) Urine Urobilinogen Norm mg/dL mg/dL (Negative) Ur Leukocyte Ursula ase Negative (Negative) Discharge Plan Discharge Patient Disposition: Home Clinical Impression: Postural dizziness with presyncope, Bradycardia, drug induced Hypotension, unspecified Qualifiers: Hypotension type: unspecified hypotension type Qualified Code(s): I95.9 - Hypotension, unspecified Condition: Stable Prescriptions: New metoprolol tartrate 25 mg tablet 12.5 mg PO BID 10 Days Qty: 5 RF: 0 Discontinued metoprolol tartrate 25 mg Tablet 25 mg PO BID@0900,2100 Qty: 60 RF: 0 amlodipine 5 mg Tablet 5 mg PO DAILY RF: 0 No Action pantoprazole 40 mg tablet,delayed release (DR/EC) 40 mg PO DAILY RF: 0 Eliquis 5 mg tablet 2.5 mg PO BID@1000,2100 RF: 0 saw palmetto 450 mg capsule 450 mg PO BID@1000,2100 RF: 0 ketoconazole 2 % shampoo 1 applic topical .2 x weekly Qty: 120 RF: 3 fluticasone propionate [Flonase Allergy Relief] 50 mcg/actuation spray,suspension 1 spray intranasal DAILY RF: 0 multivitamin Tablet 1 tab PO DAILY@1000 RF: 0 atorvastatin 40 mg tablet 40 mg PO DAILY RF: 0 acetaminophen 500 mg Tablet 500 mg PO DAILY@1000 RF: 0 magnesium 250 mg Tablet 250 mg PO DAILY@1000 RF: 0 vitamin B complex 1 tab PO DAILY@1000 RF: 0 nitroglycerin 0.4 mg tablet, sublingual 0.4 mg sublingual Q5M PRN (Reason: chest pains) RF: 0 aspirin 81 mg Tablet,Delayed Release (Dr/Ec) 81 mg PO DAILY@1000 RF: 0 isosorbide mononitrate 120 mg tablet extended release 24 hr 120 mg PO DAILY Qty: 30 RF: 0 gabapentin 100 mg Capsule 100 mg PO BEDTIME RF: 0 Discharge Orders: Discharge ED (Routine); Ordered 02/10/21 Ordered By: Rosy Garcia Referrals: Nikita Mosher MD [Primary Care Provider] - Discharge Diet: Advance as tolerated Discharge Activity: Increase activity as tolerated Patient Instructions: Hypotension (ED), Lightheadedness (ED) Activity Restrictions/Additional Instructions: Drink plenty of fluids, rest, Make sure you use caution when getting up to stand and walk, take your time, sit down immediately if you feel dizzy or unsteady. Stop taking amlodipine. Decrease your metoprolol dose to 1/2 pill twice daily. Call to schedule follow-up appointment with your primary care doctor within the next 3 days for recheck. Return immediately to the ER if you have recurrent dizziness or fainting, or if you develop any other concerning symptoms such as chest pain, nausea, vomiting, difficulty breathing. Coding Level of Care Code ED Lieutenant Fire Fighter for Eleazar Hargrove
[2021-02-10 12:23] LABS: Basophils % 0.3 %; Eosinophils # 0.2 10^3/uL (0.0-0.8); Eosinophils % 3.1 %; Hematocrit 41.7 % (42.0-52.0); Hemoglobin 13.6 g/dL (11.7-16.6); Lymphocytes # 1.1 10^3/uL (0.8-4.8); Lymphocytes % 15.8 %; Mean Corpuscular HGB Conc 32.6 g/dL (30.0-36.0); Mean Corpuscular Hemoglobin 31.3 pg (28.0-34.0); Mean Corpuscular Volume 96.1 fl (80-94); Mean Platelet Volume 10.3 fL (7.4-10.4); Monocytes # 0.5 10^3/uL (0.2-0.9); Neutrophils # 4.88 10^3/uL (1.8-7.7); Neutrophils % 72.2 %; Nucleated Red Blood Cells % 0 %; Platelet Count 201 10^3/cmm (130-400); Red Blood Count 4.34 10^6/uL (4.1-5.3); Red Cell Distribution Width 13.4 % (12.1-15.1); White Blood Count 6.8 10^3/uL (4.0-10.0)
[2021-02-10] MEDS: sodium chloride 0.9% 500 ML 999 ML IV (12:41)
[2021-02-10 13:11] LABS: Alanine Aminotransferase 10 U/L (0-41); Albumin Level 3.7 g/dL (3.5-5.2); Alkaline Phosphatase 72 IU/L (40-130); Aspartate Amino Transferase 14 U/L (0-40); Blood Urea Nitrogen 24 mg/dL (8-23); Calcium 8.7 mg/dL (8.5-10.5); Carbon Dioxide 24 mmol/L (22-29); Chloride 103 mmol/L (98-107); Creatinine Clr Calc Pharmacy 36.6558; Globulin 3.2 g/dL (1.3-4.6); Glucose 128 mg/dL (65-115); Magnesium 2.1 mg/dL (1.7-2.3); Osmolality Calculated 294 mOsm/kg (285-295); Sodium 139 mmol/L (136-145); Total Bilirubin 0.5 mg/dL (0.15-1.2); Total Protein 6.9 g/dL (6.6-8.7)
[2021-02-10 13:12] LABS: Troponin(5th) Baseline 19 ng/L (0-15)
--- NOTE | 2021-02-10 13:41 | CTR_ITS ---
PROCEDURE INFORMATION: Exam: CT Head Without Contrast Exam date and time: 02/10/2021 1:41 PM Age: 80 years old Clinical indication: Dizziness; Additional info: Dizziness, ataxia TECHNIQUE: Imaging protocol: Computed tomography of the head without contrast. Radiation optimization: All CT scans at this facility use at least one of these dose optimization techniques: automated exposure control; mA and/or kV adjustment per patient size (includes targeted exams where dose is matched to clinical indication); or iterative reconstruction. COMPARISON: CT head wo con* [id number] 02/17/2020 3:10 PM RADIATION DOSE METRICS: Total DLP (mGy-cm): 959.55 FINDINGS: Brain: No hemorrhage. Mild diffuse cerebral atrophy and sequela of chronic small vessel ischemic disease. No mass effect. Cerebral ventricles: No ventriculomegaly. Paranasal sinuses: Visualized sinuses are unremarkable. No fluid levels. Mastoid air cells: Visualized mastoid air cells are well aerated. Bones/joints: Unremarkable. No acute fracture. Soft tissues: Unremarkable. CT/CT head wo con* [id number] IMPRESSION: No acute intracranial abnormality. Radiation Dose CTDIVOL = (mGy): DLP = 959.55 (mGy-cm)
--- NOTE | 2021-02-10 14:11 | ECG_ITS ---
[facility] Test Date: 2021-02-10 Pat Name: Isaac Blanco Department: Room: Gender: Male Second Cutter: : 1940 Requested By: Rosy Garcia Order Number: [id number] Reading MD: SOFIE JOYCE Measurements Intervals [place] Rate: 55 P: 57 SC: 202 QRS: -16 QRSD: 105 T: 5 QT: 493 QTc: 473 Interpretive Statements SINUS BRADYCARDIA LEFT VENTRICULAR HYPERTROPHY AND ST-T CHANGE [VOLTAGE CRITERIA PLUS ST/T ABNORMALITY] INFERIOR MYOCARDIAL INFARCTION , PROBABLY OLD [40+ ms Q WAVE AND/OR ST/T ABNORMALITY IN II/aVF] Compared to ECG 02/08/2021 00:51:40 ST (T wave) deviation now present Atrial fibrillation no longer present T-wave abnormality no longer present Possible ischemia no longer present Myocardial infarct finding still present Electronically Signed On 02-11-2021 14:36:00 ABSORPTION OPERATOR by SOFIE JOYCE [id number]
[2021-02-10 14:30] VITALS: BP 137/63; PULSE 59; RESP 16; O2SAT 95
[2021-02-10 14:48] LABS: Add Urine Microscopic? NO; Charge for UA Resulting for Rev
[2021-02-10 14:52] LABS: Bilirubin Urine Neg (Negative); Blood Urine Neg (Negative); Glucose Urine UA Norm (Normal); Ketones Urine Negative (Negative); Nitrate Urine Negative (Negative); Protein Urine Neg (Negative); Urine Appearance Clear (CLEAR); Urine Color Yellow (Yellow); pH Urine 6.5 (5-7)
[2021-02-10 14:53] LABS: Leukocyte Esterase Urine Negative (Negative); Urobilinogen Urine Norm (Negative)
[2021-02-10 14:57] LABS: Troponin 5 2HR 15.08 ng/L (0-15)
[2021-02-10 15:00] LABS: Troponin 5 2HR Delta -3.92 ABS# (0-10)
[2021-02-10 15:25] VITALS: BP 130/61; PULSE 56; RESP 16; O2SAT 94
== END 2021-02-10 15:37 | disposition home or self-care (01) ==
PROVIDERS: Emergency Provider Family Medicine; PCP Family Medicine
DX: I95.9 Hypotension, unspecified (principal); R00.1 Bradycardia, unspecified; R42 Dizziness and giddiness; Z87.891 Personal history of nicotine dependence; T50.995A Adverse effect of other drugs, medicaments and biological substances, initial encounter
CPT/HCPCS: 36415; 70450; 80053; 81003; 83735; 84484; 85025; 93005; 99284; J7040

== ENCOUNTER → 2021-02-17 15:07 | Outpatient (BNVA) | payer MEDICARE, OTHER, SELFPAY | PROVIDERS: PCP Family Medicine; Visit Provider Internal Medicine Pulmonary Disease | DX: Z20.822 Contact with and (suspected) exposure to COVID-19 (principal); R93.89 Abnormal findings on diagnostic imaging of other specified body structures | CPT/HCPCS: 87635 ==

== ENCOUNTER 2021-02-23 12:43 | Outpatient (CLI) | payer MEDICARE, OTHER, SELFPAY ==
--- NOTE | 2021-02-23 13:20 | PFTS_ITS ---
Date of Study:02/23/21 Date of Dictation: 02/23/2021 MECHANICS: Pre-bronchodilator forced vital capacity (FVC) is normal Pre-bronchodilator forced expiratory volume in one second (FEV1) is normal. FEV1/FVC is normal. There is no postbronchodilator study. FLOW VOLUME LOOP: Normal . LUNG VOLUMES: Total lung capacity (TLC) is normal. Residual volume (RV) is normal. DIFFUSING CAPACITY FOR CARBON MONOXIDE: Moderately reduced 58% . INTERPRETATION: The postbronchodilator spirometry is normal. Lung volumes are normal. Gas transfer is moderately reduced. Clinical correlation is strongly recommended. MTDD
== END 2021-02-23 12:44 | disposition home or self-care (01) ==
LOC: RT 12:45
PROVIDERS: PCP Family Medicine; Visit Provider Internal Medicine Pulmonary Disease
DX: R93.89 Abnormal findings on diagnostic imaging of other specified body structures (principal)
CPT/HCPCS: 94010; 94726; 94729

== ENCOUNTER 2021-02-26 05:55 | Inpatient (IN) | payer MEDICARE, OTHER, SELFPAY ==
[2021-02-26] VITALS (50 sets, daily range): BP systolic 84–173; BP diastolic 51–105; PULSE 61–111; RESP 12–25; TEMP 36.2–36.9; O2SAT 77–98; BMI 23.5; BMI 26.2
--- NOTE | 2021-02-26 06:07 | ED_ITS ---
HPI - Chest Pain General: Chief Complaint: Chest Pain Stated Complaint: Chest Pain Time Seen by Provider: 02/26/21 06:02 History of Present Illness: HPI narrative: 80-year-old male presents emergency room complaining of chest pain that began this morning around 5 AM while he was sleeping. He has been having episodes of chest pain nearly daily and using nitroglycerin. He has been in the emergency room twice in the last 30 days pastimes evaluation was negative for acute changes and there were no acute ST changes on his EKG. Today on arrival he is having severe chest pain with dyspnea mild diaphoresis radiation of pain into the shoulders and the neck. He did receive some relief with 2 sublingual nitros he took at home. He states his pain is similar to what he has been having recently but more intense and has not been as responsive to the sublingual nitro. His initial EKG shows significant ST depression in the lateral leads. Note this account initially was started on a new account patient has old records which are available in the EMR currently they are under a separate listed name and he has 2 accounts the [id number] was reviewed for the purposes of old records and old EKGs. Registration tells me they will be able to merge the [facility] rts at a later point. MD complaint: chest pain and chest discomfort Pertinent past history: coronary artery disease Onset (ago): hour(s) Timing of current episode: episodic Prior episodes: Yes Onset: during rest Pain location: substernal and left chest Pain radiation: right arm, left arm and neck Severity: severe Quality: aching and sharp Relieving factors: nitroglycerin Exacerbating factors: exertion Associated symptoms: Reports diaphoresis, dyspnea, nausea and palpitations; Deny abdominal pain, fever(s), leg edema, sense of impending doom, syncope or vomiting Treatment prior to arrival: nitroglycerin Review of Systems Const: Reports: diaphoresis; Denies: fever(s) ENMT: Denies: throat pain, ear or mastoid pain, nasal discharge or nasal congestion Card: Reports: palpitations; Denies: syncope Resp: Reports: dyspnea GI: Reports: nausea; Denies: abdominal pain or vomiting : Denies: flank pain, dysuria, urinary frequency or urinary urgency Skin/Breast: Denies: rash or pruritus [facility] ED PFSH: Medical History Anticoagulation adequate with anticoagulant therapy Atherosclerotic heart disease of [place] coronary artery with other forms of angina pectoris Atherosclerotic heart disease of [place] coronary artery with unstable angina pectoris Atrial fibrillation CAD (coronary artery disease) Chronic kidney disease (CKD) CKD (chronic kidney disease) Dyslipidemia Essential hypertension GERD (gastroesophageal reflux disease) Ground glass opacity present on imaging of lung History of nonmelanoma skin cancer Inflammatory arthritis NSIP (nonspecific interstitial pneumonia) Peripheral neuropathy SLE (systemic lupus erythematosus related syndrome) Sleep apnea TIA (transient ischemic attack) Surgical History History of coronary angiogram History of neck surgery History of shoulder surgery History of surgery on wrist Family History Other CAD (coronary artery disease) Diabetes Hypertension Denies family history of Rheumatoid arthritis Lupus Lung disease Cancer Stroke Social History Smoking and tobacco status: former smoker Quit status (tobacco): has quit using tobacco Year quit tobacco: 1959 Former quit date comment: Hx of 1 PPD x 10 Years Second hand smoke exposure: No Smoking risk assessment/counseling performed?: Yes Alcohol intake: never Counseling given: No Counseling given: No Lives independently: Yes Household members: spouse Marital status: service: Yes Current occupational status: retired Pets and animals: No History of recent travel: No Current gender identity: Male Physical Exam Const: COMMON NORMALS: no acute distress GENERAL APPEARANCE: cooperative and comfortable ORIENTATION/CONSCIOUSNESS: Yes awake, Yes oriented to person, Yes oriented to place and Yes oriented to time HENMT: COMMON NORMALS: normocephalic, atraumatic and hearing grossly normal bilaterally HEAD & SCALP: normocephalic and atraumatic Neck/C-Spine: COMMON NORMALS: no JVD Resp: COMMON NORMALS: normal respiratory effort, No retractions, No use of accessory muscles and clear to auscultation bilaterally AUSCULTATION: clear to auscultation bilaterally Cardio: COMMON NORMALS: no JVD, regular rate, regular rhythm and No murmurs present (Cardio) RATE: regular rate RHYTHM: regular rhythm GI: COMMON NORMALS: Soft to palpation and No hepatosplenomegaly present AUSCULTATION: Yes normoactive bowel sounds PALPATION: Yes Soft to palpation, No Tenderness to palpation present (GI), No Guarding due to palpation present (GI) and Yes No hepatosplenomegaly present Extremity: COMMON NORMALS: normal to inspection, capillary refill normal, no clubbing, cyanosis or edema, no calf tenderness and no pedal edema Neuro: SENSORIUM/ORIENTATION: Yes oriented to person, Yes oriented to place and Yes oriented to time Skin: COMMON NORMALS: no rashes or lesions noted GENERAL SKIN EXAM: no rashes or lesions noted Course Vital Signs: Vital signs: Vital Signs Temperature 97.1 F L 02/26/21 06:00 Pulse Rate 92 02/26/21 07:36 Respiratory Rate 18 02/26/21 07:36 Blood Pressure 139/77 02/26/21 07:36 Pulse Oximetry 92 02/26/21 07:36 MDM - Chest Pain MDM Narrative: Medical decision making narrative: Patient did have improvement of his EKG. His initial EKG shows pretty significant ST depression particularly in the lateral leads subsequent EKG showed improvement of this he never had any ST elevation. Is concerned because his degree of pain in the aspect of unstable angina he would evolve to a ST elevation he was given heparin and Plavix he taken his Eliquis last night. Discussed with Dr. Ramirez he reviewed the EKGs and has been down to see the patient as he has decided take the patient to Merchandise Adjustment Clerk. Despite aspirin heparin Plavix nitro morphine patient still is reporting pain 4-5 out of [address] depression has improved but is still evident. Did compared to old EKGs as well and this was a new finding. I discussed Dr. Rivas he will admit patient to hospitalist service after patient recovers from the Merchandise Adjustment Clerk. He is proceeding directly to Merchandise Adjustment Clerk from the ER. Initial troponin is 51 baseline troponin is usually less than 20 in the past. Lab Data: Labs: Lab Results 02/26/21 02/26/21 02/26/21 06:09 06:09 06:09 WBC 10.6 10^3/uL H 10 ^3/uL (4.0-10.0) RBC 4.26 10^6/uL 10^6 /uL (4.1-5.3) Hgb 13.6 g/dL g/dL (11.7-16.6) Hct 41.5 % L % (42.0-52.0) MCV 97.4 fl H fl (80-94) MCH 31.9 pg pg (28.0-34.0) MCHC 32.8 g/dL g/dL (30.0-36.0) RDW 13.8 % % (12.1-15.1) Plt Count 180 10^3/cmm 10^3 /cmm (130-400) MPV 11.3 fL H fL (7.4-10.4) Neut % (Auto) 53.9 % % Lymph % (Auto) 33.6 % % Haskell % (Auto) 8.4 % % Eos % (Auto) 3.3 % % Baso % (Auto) 0.5 % % Neut # (Auto) 5.72 10^3/uL 10^3 /uL (1.8-7.7) Lymph # (Auto) 3.6 10^3/uL 10^3/ uL (0.8-4.8) Haskell # (Auto) 0.9 10^3/uL 10^3/ uL (0.2-0.9) Eos # (Auto) 0.4 10^3/uL 10^3/ uL (0.0-0.8) Baso # (Auto) 0.1 10^3/uL 10^3/ uL (0.0-0.1) Nucleated RBC % (a uto) 0 % % Nucleated RBCs # 0.0 /100WBC /100W BC PT 15.20 SECONDS H S ECONDS (12.1-14.9) INR 1.17 (0.8-1.2) APTT 35.8 SECONDS SECO NDS (23.9-36.7) Sodium 144 mmol/L mmol/L (136-145) Potassium 3.5 mmol/L mmol/L (3.5-5.1) Chloride 105 mmol/L mmol/L (98-107) Carbon Dioxide 23 mmol/L mmol/L (22-29) Anion Gap 19.5 H (5-19) BUN 28 mg/dL H mg/dL (8-23) Creatinine 1.5 mg/dL H mg/dL (0.7-1.2) GFR Calculation Not Reportable Glucose 124 mg/dL H mg/dL (65-115) Calculated Osmolal ity 305 mOsm/kg H mOs m/kg (285-295) Calcium 8.7 mg/dL mg/dL (8.5-10.5) Total Bilirubin 0.6 mg/dL mg/dL (0.15-1.2) AST 14 U/L U/L (0-40) ALT 10 U/L U/L (0-41) Alkaline Phosphata se 73 IU/L IU/L (40-130) Creatine Kinase 58 U/L U/L (39-308) Troponin T Baselin e NT-Pro-B Natriuret Pep 2028 pg/mL H pg/m L (0-450) Total Protein 7.1 g/dL g/dL (6.6-8.7) Albumin 4.3 g/dL g/dL (3.5-5.2) Globulin 2.8 g/dL g/dL (1.3-4.6) 02/26/21 06:09 WBC RBC Hgb Hct MCV MCH MCHC RDW Plt Count MPV Neut % (Auto) Lymph % (Auto) Haskell % (Auto) Eos % (Auto) Baso % (Auto) Neut # (Auto) Lymph # (Auto) Haskell # (Auto) Eos # (Auto) Baso # (Auto) Nucleated RBC % (a uto) Nucleated RBCs # PT INR APTT Sodium Potassium Chloride Carbon Dioxide Anion Gap BUN Creatinine GFR Calculation Glucose Calculated Osmolal ity Calcium Total Bilirubin AST ALT Alkaline Phosphata se Creatine Kinase Troponin T Baselin e 51 ng/L H ng/L (0-15) NT-Pro-B Natriuret Pep Total Protein Albumin Globulin Discharge Plan Discharge Patient Disposition: Admitted As Inpatient Clinical Impression: Non-ST elevation IA (NSTEMI), Atherosclerotic heart disease of [place] coronary artery with unstable angina pectoris, Chronic kidney disease (CKD), SLE (systemic lupus erythematosus related syndrome), Atrial fibrillation, Anticoagulation adequate with anticoagulant therapy, Essential hypertension, Dyslipidemia Condition: Stable Coding Level of Care Code ED Balloon Dipper for Eleazar Fwd Exam Comprehensive
--- NOTE | 2021-02-26 06:21 | XRR_ITS ---
NOTE: Report was unsigned for reason: Order was edited. Original Signature date and time was: 02/26/21 @ 0854 PROCEDURE INFORMATION: Exam: XR Chest Exam date and time: 02/26/2021 6:21 AM Age: 80 years old Clinical indication: Pain; Chest pressure; Additional info: Chest pain TECHNIQUE: Imaging protocol: XR of the chest. Views: 1 view. COMPARISON: No relevant prior studies available. FINDINGS: Lungs: Unremarkable. No consolidation. Pleural spaces: Unremarkable. No pleural effusion. No pneumothorax. Heart/Mediastinum: Cardiac silhouette mildly enlarged. Vasculature: Mild unfolding of the descending aorta. Bones/joints: Anterior cervical plate and screws. MTDD
--- NOTE | 2021-02-26 06:21 | ECG_ITS ---
[facility] Test Date: 2021-02-26 Pat Name: Isaac Blanco Department: Room: Gender: Male Toll Gate Keeper: : 1940 Requested By: Shawn Ornelas Order Number: [id number] Radha MD: Garcia Chaparro M.D. Measurements Intervals [place] Rate: 78 P: DC: QRS: 9 QRSD: 122 T: 19 QT: 425 QTc: 485 Interpretive Statements ATRIAL FIBRILLATION MODERATE INTRAVENTRICULAR CONDUCTION DELAY [110+ ms QRS DURATION] MODERATE VOLTAGE CRITERIA FOR LVH, CONSIDER NORMAL VARIANT [MEETS CRITERIA IN ONE OF: R(aVL), S(V1), R(V5), R(V5/V6)+S(V1)] NONSPECIFIC ST & T-WAVE ABNORMALITY ABNORMAL RHYTHM ECG No previous ECG available for comparison Electronically Signed On 02-26-2021 7:41:40 LOGGING CREW SUPERVISOR by Garcia Chaparro M.D. [id number]
--- NOTE | 2021-02-26 06:21 | ECG_ITS ---
[facility] Test Date: 2021-02-26 Pat Name: Isaac Blanco Department: Room: Gender: Male Multi Needle Machine Operator: : 1940 Requested By: Shawn Ornelas Order Number: [id number] Radha MD: Garcia Chaparro M.D. Measurements Intervals [place] Rate: 84 P: [place]: QRS: 9 QRSD: 113 T: -63 QT: 403 QTc: 479 Interpretive Statements ATRIAL FIBRILLATION WITH ABERRANT CONDUCTION OR VENTRICULAR PREMATURE COMPLEXES MODERATE VOLTAGE CRITERIA FOR LVH, CONSIDER NORMAL VARIANT [MEETS CRITERIA IN ONE OF: R(aVL), S(V1), R(V5), R(V5/V6)+S(V1)] ANTEROLATERAL MYOCARDIAL INFARCTION , OF INDETERMINATE AGE [40+ ms Q WAVE IN I/aVL/V3-V6] ST DEVIATION AND MODERATE T-WAVE ABNORMALITY, CONSIDER INFERIOR ISCHEMIA [-0.1+ mV T-WAVE IN II/aVF] No previous ECG available for comparison Electronically Signed On 02-26-2021 7:48:34 PEDIATRIC NEUROLOGIST by Garcia Chaparro M.D. [id number]
--- NOTE | 2021-02-26 06:21 | ECG_ITS ---
[facility] Test Date: 2021-02-26 Pat Name: Isaac Blanco Department: Room: Gender: Male Manager Crisis: : 1940 Requested By: Shawn Ornelas Order Number: [id number] Radha MD: Garcia Chaparro M.D. Measurements Intervals [place] Rate: 81 P: [place]: QRS: 42 QRSD: 113 T: -21 QT: 398 QTc: 464 Interpretive Statements ATRIAL FLUTTER/TACHYCARDIA MODERATE INTRAVENTRICULAR CONDUCTION DELAY [110+ ms QRS DURATION] MARKED ST DEPRESSION, CONSIDER SUBENDOCARDIAL INJURY [0.2+ mV ST DEPRESSION] No previous ECG available for comparison Electronically Signed On 02-26-2021 7:49:05 PRODUCT SUPPORT ENGINEER by Garcia Chaparro M.D. [id number]
[2021-02-26] MEDS: aspirin 81 mg Chew Tablet 324 MG PO (06:25)
[2021-02-26] MEDS: clopidogrel 300 mg Tablet 600 MG PO (06:25)
[2021-02-26] MEDS: nitroglycerin drip 50 MG/250 ML PREMIX (06:25)
[2021-02-26] MEDS: nitroglycerin drip 50 MG/250 ML PREMIX IV (06:27)
[2021-02-26] MEDS: morphine 4 mg/mL SDV 1 mL IVP (06:32)
[2021-02-26] MEDS: metoprolol tartrate 1 mg/1 mL SDV 5 mL 2.5 MG IVP (06:33)
[2021-02-26] MEDS: ondansetron 2 mg/ML SDV 2 mL 4 MG IVP (06:33)
--- NOTE | 2021-02-26 06:49 | XACV_ITS ---
Exam Room: 2 Ht: 170 cm Wt: 69 kg BSA: 1.82 m2 Gender: Male : 1940 Any Known Allergies: Other Exam Priority: Routine Procedure(s): Procedure Description: Diagnostic procedure Procedure Description: PCI procedure Procedure Description: Drug Eluting Coronary Stent Procedure Description: PTCA Procedure Description: Coronary Angiography Mariaelena ABRAMS; Diagnostic Cath Status: Urgent Diagnostic Findings * Left Main has no disease. * Distal Left Anterior Descending: obstructive 60% stenosis, ERVIN: 3 flow. * Proximal Right Coronary Artery to Mid Right Coronary Artery: luminal irregularities 20% stenosis, ERVIN: 3 flow. * Proximal Circumflex: significant 80% stenosis, ERVIN: 3 flow. * Mid Circumflex: significant 80% stenosis, ERVIN: 3 flow. * 1st Diagonal: severe 90% stenosis, ERVIN: 3 flow. * 2nd Diagonal: significant 80% stenosis, ERVIN: 3 flow. * First Obtuse Marginal Branch Segment: significant 75% stenosis, ERVIN: 3 flow. * Third Obtuse Marginal Branch Segment: obstructive 70% stenosis, ERVIN: 3 flow. * Coronary angiography shows right dominance. Interventional Findings * Proximal Circumflex: 80% stenosis treated with a Drug Eluting Stent. 0% residual stenosis, ERVIN: 3 flow. * Mid Circumflex: 80% stenosis treated with a AB TREK 2.50X12 RX BALLOON, MDT R ALBERT 3.5X15 EZIO, MDT R ALBERT 3.0X12 EZIO, and Balloon. 0% residual stenosis, ERVIN: 3 flow. Conclusions 1. 78-year-old male presented with worsening of chest pain and non-ST elevation WI and EKG changes mid lateral wall. He was taken to the Tavern Car Attendant for recurrent chest pains. He was noted to have multivessel coronary artery disease we decided to treat ostial and mid circumflex since patient has underlying kidney disease and would not like to give him more contrast at the same time EKG changes were more in lateral leads which appear to be more significant. Distal vessels were thought to be managed medically. 2. There is significant coronary artery disease with three vessel disease. 3. Proximal Circumflex was treated with a Drug Eluting Stent. 4. Mid Circumflex was treated with a Balloon, Drug Eluting Stent, Drug Eluting Stent, and Balloon. Recommendations * Continue current medical management and risk factor modification. Interventional RX Recommendation: PCI w/o planned CABG Diagnostic RX Recommendation: PCI w/o planned CABG Pressures Phase:Rest AO : 127 / 57 ( 85 ) @ 6:37:00 AM 128 / 69 ( 94 ) @ 6:48:00 AM 56 / 39 ( 46 ) @ 7:07:00 AM 53 / 33 ( 41 ) @ 7:19:00 AM Clinical Evaluation EBL: 5mL-10mL Procedural Details Procedure Consent Obtained. Pre-Procedure Time Out. Identified patient by full name and date of as verbalized by the patient/guarantor. Does the consent match the physician's order: Yes. Accurate & Complete Informed Consent: Yes. Inpatient/Outpatient History & Physical on Chart: Yes. The risks, benefits, and alternatives of sedation and/or procedure were discussed by physician. The patient agrees to continue. Procedure started. If H&P is completed, is and addenduem needed: No; If yes, is the addendum complete: N/A. Visualize and Verify Site with Patient/Guarantor: N/A. Relevant Radiology Images available: No. [facility] Clinical Fraility Score: 4: Vulnerable. Tavern Car Attendant Indications: Worsening Angina/Unstable Angina. Chest Pain Symptom Assessment: Typical Angina Symptoms. Cardiovascular Instability: No. Correct patient, site and procedure confirmed by cath team. PERRLA. Strong, equal hand supervisor residential bilaterally. Lungs clear x 5 lobes. IV Site on Arrival: 18 gauge in the right anticubital. IV Site on Arrival: 20 gauge in the left hand. IV Fluids: 0.9% NaCl at KVO. 100 mL infused prior to cath lab technologist. Pre Procedural Pulses: bilateral radial was 1+. Oxygen started at 2liters/min via nasal canula. right groin was prepped with chloroprep then draped in the usual sterile fashion. right radial was prepped with chloroprep then draped in the usual sterile fashion. Physician notified. Baseline sample Acquired. HR: 88 BPM. Equipment: 6F - Radial. Cardiac Cath Pack. ACIST Manifold Kit Model BT 2000. Heparinized Saline (2 units/mL), 1000 mL bag. Physician arrived. Physician scrubbed in. Immediate Pre-Procedure Time Out. Correct Patient: Yes; Correct Procedure: Yes; Correct Site: Yes; Correct Patient Position: Yes; Correct Supplies: Yes; Dried Flammable Prep: Yes; Blood Products Available: N/A. Lidocaine 1% infiltrated to the right radial. Arterial access obtained. A 5 swazi JR4 catheter in over the exchange wire. Multiple views taken of right coronary artery. Catheter removed over the exchange wire. 6 swazi XB 3.5 guide catheter was inserted over the wire. ACT drawn. Results 179 seconds. Therapeutic limits - pre-heparin administration 90-150 seconds and monitoring heparin during a vascular procedure >250 seconds. Multiple views taken of left coronary artery. [place] guidewire was advanced through the guide catheter to lesion in the mid Circ. Add inventory: Endoflator. Inflation number : 1 A AB TREK 2.50X12 RX BALLOON was prepped and advanced across the Mid CX , then inflated to 16 NA for 0:13 seconds. Inflation number: 2 The AB TREK 2.50X12 RX BALLOON was reinflated across the Mid CX, to 18 NA for 0:17 seconds. Balloon out. Albert 3.5 x 15 stent inserted and unable to cross. Removed intact. Inflation number: 3 The AB TREK 2.50X12 RX BALLOON was reinflated across the Mid CX, to 16 NA for 0:10 seconds. Inflation number: 4 The AB TREK 2.50X12 RX BALLOON was reinflated across the Mid CX, to 16 NA for 0:23 seconds. Inflation Number : 5 A BERNARDA Parra ALBERT 3.5X15 EZIO -Lot Number# [id number] was prepped and advanced across the Mid CX. The stent was deployed at 18 NA for 0:27 seconds. Exp.2023-09-06. Stent balloon out over wire. Inflation Number : 6 A MDT R ALBERT 3.0X12 EZIO -Lot Number# [id number] was prepped and advanced across the Mid CX. Exp. 2023-09-30.The stent was deployed at 14 NA for 0:20 seconds. Stent balloon out over wire. Inflation number : 7 A MDT NC EUPHORA RX 3.24S47VP BALLOON was prepped and advanced across the Mid CX , then inflated to 16 NA for 0:18 seconds. Inflation number: 8 The MDT NC EUPHORA RX 3.84L94DP BALLOON was reinflated across the Mid CX, to 14 NA for 0:10 seconds. Inflation number: 1 The MDT NC EUPHORA RX 3.71C33PK BALLOON was reinflated across the Prox CX, to 12 NA for 0:15 seconds. Balloon out. Results checked. Wire out. Runthrough guidewire in. Oxy mask placed on the patient at 15 lpm. Runthrough guidewire was advanced through the guide catheter to lesion in the OM. Levophed increased to 10mcg/min. Inflation number : 1 A AB MINI TREK 2.00X8 RX BALLOON was prepped and advanced across the 1st Ob Dorothy , then inflated to 12 NA for 0:10 seconds. Inflation number: 2 The AB MINI TREK 2.00X8 RX BALLOON was reinflated across the 1st Ob Dorothy, to 12 NA for 0:08 seconds. Inflation number: 2 The AB MINI TREK 2.00X8 RX BALLOON was reinflated across the 1st Ob Dorothy, to 12 NA for 0:07 seconds. Wire out. ACT drawn. Results 279 seconds. Therapeutic limits - pre-heparin administration 90-150 seconds and monitoring heparin during a vascular procedure >250 seconds. Guide catheter out. Levophed off. A TR Band was successful obtaining hemostatsis at the Radial artery insertion site. Physician scrubbed out. Oxy mask down to12 lpm. TR band placed. Hemostasis obtained. Post Procedure: Pulses reassessed and unchanged. PERRLA. Strong, equal hand supervisor residential bilaterally. No VTE prophylaxis required. Medication's Wasted: Lidocaine 1% = 18 mL. Medication's Wasted: Nitro = 49.6 mg. Total IV fluids: 500 mL. PCI Indication: Sifnificant ostial/mid circumflex. Post-op diagnosis: Stenting of the ostial/mid circumflex. Balloon PTCA of jailed OM. Complications: none. Estimated blood loss: 5mL-10mL. Responsiveness - Normal response to verbal stimuli; alert and oriented, PERRLA. Airway - Unaffected, no intervention required; spontaneous ventilation. Circulation: W/N/L, pulses unchanged. Nausea/Vomiting: No. spouse updated by Dr. Ferrell. Oxy masked changed to a 100% NRB. Medication's Wasted: Aggrastat 215ml. Procedure completed. Patient transferred by bed to 1st floor. Vital chart was stopped. Access Site Site: Radial artery Sheath Size: 6 Fr Hemostasis Method: TR Band Hemostasis Success: Successful Procedure Medications Start: 8:19 AM Stop: 8:19 AM Medication: Fentanyl Amount: 50 mcg Route: I.V. Start: 8:24 AM Stop: 8:24 AM Medication: Nitrogylcerin Amount: 200 mcg Route: I.A. Start: 8:19 AM Stop: 8:19 AM Medication: Versed Amount: 1 mg Route: I.V. Start: 8:34 AM Stop: 8:34 AM Medication: Heparin Amount: 6000 units Route: I.V. Start: 8:40 AM Stop: 8:40 AM Medication: Fentanyl Amount: 50 mcg Route: I.V. Start: 8:50 AM Stop: 8:50 AM Medication: Versed Amount: 1 mg Route: I.V. Start: 9:06 AM Stop: 9:06 AM Medication: Nitrogylcerin Amount: 200 mcg Route: I.C. Start: 9:07 AM Stop: 9:07 AM Medication: 0.9% Saline Amount: 500 ml Route: I.V. bolus Start: 9:19 AM Stop: 9:19 AM Medication: Levophed (norepinephrine) Amount: 8 mcg/min Route: I.V. drip Start: 9:37 AM Stop: 9:37 AM Medication: Levophed (norepinephrine) Amount: 10 mcg/min Route: I.V. drip Start: 9:38 AM Stop: 9:38 AM Medication: Aggrastat 12.5 mg/250 mL Amount: 35 ml Route: I.V. bolus I, the attending physician, have reviewed and verified all procedure medications. Yes, all medications given per verbal order History/Risk Factors Hypertension: Yes Dyslipidemia: Yes Peripheral Arterial Disease (PAD): No Myocardial Infarction (WI): No Obesity: No Renal Disease: No Prior Interventions PCI: Yes CABG: No Valve Surgery: No Date of PCI: 02/26/2021 Report Signatures Finalized by Semaj Ferrell MD on 03/08/2021 03:48 PM
[2021-02-26 06:50] LABS: Basophils # 0.1 10^3/uL (0.0-0.1); Basophils % 0.5 %; Eosinophils # 0.4 10^3/uL (0.0-0.8); Eosinophils % 3.3 %; Hematocrit 41.5 % (42.0-52.0); Hemoglobin 13.6 g/dL (11.7-16.6); Lymphocytes # 3.6 10^3/uL (0.8-4.8); Lymphocytes % 33.6 %; Mean Corpuscular HGB Conc 32.8 g/dL (30.0-36.0); Mean Corpuscular Hemoglobin 31.9 pg (28.0-34.0); Mean Corpuscular Volume 97.4 fl (80-94); Mean Platelet Volume 11.3 fL (7.4-10.4); Monocytes # 0.9 10^3/uL (0.2-0.9); Monocytes % 8.4 %; Neutrophils # 5.72 10^3/uL (1.8-7.7); Neutrophils % 53.9 %; Nucleated Red Blood Cells % 0 %; Platelet Count 180 10^3/cmm (130-400); Red Blood Count 4.26 10^6/uL (4.1-5.3); Red Cell Distribution Width 13.8 % (12.1-15.1); White Blood Count 10.6 10^3/uL (4.0-10.0)
[2021-02-26 06:53] LABS: INR 1.17 (0.8-1.2); Troponin(5th) Baseline 51 ng/L (0-15)
[2021-02-26 06:54] LABS: Partial Thromboplastin Time 35.8 SECONDS (23.9-36.7)
[2021-02-26 07:05] LABS: Alanine Aminotransferase 10 U/L (0-41); Albumin Level 4.3 g/dL (3.5-5.2); Alkaline Phosphatase 73 IU/L (40-130); Anion Gap 19.5 (5-19); Aspartate Amino Transferase 14 U/L (0-40); Blood Urea Nitrogen 28 mg/dL (8-23); Calcium 8.7 mg/dL (8.5-10.5); Carbon Dioxide 23 mmol/L (22-29); Chloride 105 mmol/L (98-107); Creatine Phosphokinase 58 U/L (39-308); Globulin 2.8 g/dL (1.3-4.6); Glucose 124 mg/dL (65-115); NT Pro B Type Natriuretic Pept 2028 pg/mL (0-450); Osmolality Calculated 305 mOsm/kg (285-295); Potassium 3.5 mmol/L (3.5-5.1); Sodium 144 mmol/L (136-145); Total Bilirubin 0.6 mg/dL (0.15-1.2); Total Protein 7.1 g/dL (6.6-8.7)
[2021-02-26] MEDS: heparin 5,000 unit/mL INJ 1 mL IV (07:29)
[2021-02-26] MEDS: heparin drip 25,000 UNIT/500 ML PREMIX 19.05 UNIT IV (07:30)
--- NOTE | 2021-02-26 08:12 | W.PM.OPSUD ---
Surgery/Procedure H&P Update DATE OF PROCEDURE: February 26, 2021 DATE H&P PERFORMED: 02/26/21 H&P UPDATE INFORMATION: I have reviewed H&P completed within last 30 days, I have examined patient prior to procedure and Changes to prior documentation as noted here PREOP DIAGNOSIS: Unstable angina PLANNED PROCEDURE: 80-year-old male past medical history significant for ischemic cardiomyopathy multivessel disease for worsening of chest pain despite of optimization of medicine who is scheduled for stress test this month came in with chest pain going on for the last 3 hours. IV nitroglycerin and heparin was started. There appeared to be lateral leads ST depression which is new from the baseline. He has creatinine of 1.5 patient has been explained all risk benefit and alternative for the procedure he understand the risk for contrast-induced nephropathy temporary permanent dialysis major minor bleed vascular injury urgent emergent bypass surgery transfusion stroke arrhythmia heart failure. He would like to proceed with it he was given 600 mg of Plavix. Last apixaban was taken last night. We will proceed with early invasive strategy. PATIENT REASSESSED PRIOR TO SEDATION, WITH NO CHANGE NOTED: Yes PHYSICAL EXAM: alert, oriented x 3 and clear to auscultation bilaterally AIRWAY EVAL/ANESTHESIA PLAN: ASA II and Risks, benefits & alternatives of sedation and/or procedure discussed
--- NOTE | 2021-02-26 09:05 | PM.HP ---
Providers/Chief Complaint Primary Care Provider: Nikita Mosher MD Chief Complaint: Chest Pain History of Present Illness Isaac Blanco is a 80 year old male Medications/Allergies Home Medications Medication Instructions Recorded Confirmed Last Taken Type apixaban 5 mg tablet 2.5 mg PO BID@1000,2100 08/21/19 02/10/21 02/10/21 History saw palmetto 450 mg capsule 450 mg PO BID@1000,2100 08/21/19 02/10/21 02/10/21 History acetaminophen 500 mg PO DAILY@1000 02/17/20 02/10/21 02/10/21 History atorvastatin 40 mg PO DAILY 02/17/20 02/10/21 02/09/21 History magnesium 250 mg PO DAILY@1000 02/17/20 02/10/21 02/10/21 History multivitamin 1 tab PO DAILY@1000 02/17/20 02/10/21 02/10/21 History nitroglycerin 0.4 mg SUBLINGUAL Q5M PRN 02/17/20 02/10/21 03/15/20 History vitamin B complex 1 tab PO DAILY@1000 02/17/20 02/10/21 02/10/21 History aspirin 81 mg PO DAILY@1000 03/15/20 02/10/21 02/10/21 History isosorbide mononitrate 120 mg PO DAILY #30 tab 03/17/20 02/10/21 02/10/21 Rx fluticasone propionate 50 1 spray INTRANASAL DAILY 07/27/20 02/10/21 Unknown History mcg/actuation nasal spray,suspension ketoconazole 2 % shampoo 1 applic TOPICAL .2 x weekly #120 07/28/20 02/10/21 Unknown Rx ml pantoprazole 40 mg tablet,delayed 40 mg PO DAILY tab 09/27/20 02/10/21 02/10/21 History release gabapentin 100 mg PO BEDTIME 02/10/21 02/10/21 02/09/21 History Allergies Allergy/AdvReac Type Severity Reaction Status Date / Time hydrocodone Allergy Severe Unknown Verified 02/26/21 07:36 codeine Allergy Unknown Unknown Verified 02/26/21 07:36 PFSH Acute PFSH: Medical History Anticoagulation adequate with anticoagulant therapy Atherosclerotic heart disease of [place] coronary artery with other forms of angina pectoris Atherosclerotic heart disease of [place] coronary artery with unstable angina pectoris Atrial fibrillation CAD (coronary artery disease) Chronic kidney disease (CKD) CKD (chronic kidney disease) Dyslipidemia Essential hypertension GERD (gastroesophageal reflux disease) Ground glass opacity present on imaging of lung History of nonmelanoma skin cancer Inflammatory arthritis NSIP (nonspecific interstitial pneumonia) Peripheral neuropathy SLE (systemic lupus erythematosus related syndrome) Sleep apnea TIA (transient ischemic attack) Surgical History History of coronary angiogram History of neck surgery History of shoulder surgery History of surgery on wrist Family History Other CAD (coronary artery disease) Diabetes Hypertension Denies family history of Rheumatoid arthritis Lupus Lung disease Cancer Stroke Social History Smoking and tobacco status: former smoker Quit status (tobacco): has quit using tobacco Year quit tobacco: 1959 Former quit date comment: Hx of 1 PPD x 10 Years Second hand smoke exposure: No Smoking risk assessment/counseling performed?: Yes Alcohol intake: never Counseling given: No Counseling given: No Lives independently: Yes Household members: spouse Marital status: service: Yes Current occupational status: retired Pets and animals: No History of recent travel: No Current gender identity: Male Vitals/I&O/Wt Last Vital Signs Temp 97.1 F L 02/26/21 06:00 Pulse 92 02/26/21 07:36 Resp 18 02/26/21 07:36 BP 139/77 02/26/21 07:36 Pulse Ox 92 02/26/21 07:36 02/25/21 02/26/21 02/26/21 22:59 06:59 14:59 Intake Total 0.675 / 0.675 Balance 0.675 / 0.675 Weight last 48 hrs Weight 68.039 kg Data : 02/26/21 06:09 02/26/21 06:09 Coding Level of Care Code Acute Funeral Limousine Driver for Eleazar Hargrove
--- NOTE | 2021-02-26 09:53 | PM.HP ---
Providers/Chief Complaint Primary Care Provider: Nikita Mosher MD Chief Complaint: Chest Pain History of Present Illness Isaac Blanco is a 80 year old male past medical history significant for mild to moderately depressed ejection fraction, history of multivessel small vessel obstructive and nonobstructive coronary artery disease managed medically, chronic kidney disease with baseline creatinine of 1.5-1.6, cervical stenosis, SLE, dyslipidemia, chronic atrial fibrillation, history of recurrent and persistent angina managed with optimal medical management with scheduled to undergo stress test on the of this month presented with the chest pain after 2-hour duration in the ER. He was noted to have lateral lead ST depression, initial troponin more than 50, IV nitro drip and heparin was started since patient continued to have chest pain with dynamic EKG changes we decided to take patient to the Document Processing Specialist. He was noted to have significant ostial and mid calcified circumflex disease he was also noted to have moderate to severe disease of diagonal mild to moderate disease of mid LAD and atretic PLB branch of the RCA without significant disease in the main RCA. It was my clinical impression based upon EKGs that culprit vessel is left circumflex. It was treated with balloon angioplasty followed by 2 stent placement 1 in mid circumflex other and ostial circumflex postdilated with noncompliant balloon. Jailed obtuse marginal 1 with haziness was treated with balloon angioplasty. Excellent angiographic result was achieved patient was also noted to have low blood pressure systolic blood pressure around 80mmHg it was treated with IV bolus of normal saline while did not improve the blood pressure I started patient in the Document Processing Specialist on IV Levophed. Patient underlying creatinine is 1.5 we will therefore monitor the patient. I will transfer patient to CSU as there is no ICU bed. Further plan will advise as per progress of the patient overall patient is mentating fine upon verbal stimulation. Review of Systems Const: Reports: diaphoresis; Denies: fever(s) Eyes: Denies: photophobia ENMT: Denies: throat pain, enlarged tonsils, ear or mastoid pain, nasal discharge or nasal congestion Card: Reports: palpitations; Denies: syncope Resp: Reports: dyspnea GI: Reports: nausea; Denies: abdominal pain or vomiting : Denies: flank pain, dysuria, urinary frequency or urinary urgency Musc: Denies: joint warmth Skin/Breast: Denies: rash or pruritus All/Imm: Denies: acute wheezing Medications/Allergies Home Medications Medication Instructions Recorded Confirmed Last Taken Type apixaban 5 mg tablet 2.5 mg PO BID@1000,2100 08/21/19 02/10/21 02/10/21 History saw palmetto 450 mg capsule 450 mg PO BID@1000,2100 08/21/19 02/10/21 02/10/21 History acetaminophen 500 mg PO DAILY@1000 02/17/20 02/10/21 02/10/21 History atorvastatin 40 mg PO DAILY 02/17/20 02/10/21 02/09/21 History magnesium 250 mg PO DAILY@1000 02/17/20 02/10/21 02/10/21 History multivitamin 1 tab PO DAILY@1000 02/17/20 02/10/21 02/10/21 History nitroglycerin 0.4 mg SUBLINGUAL Q5M PRN 02/17/20 02/10/21 03/15/20 History vitamin B complex 1 tab PO DAILY@1000 02/17/20 02/10/21 02/10/21 History aspirin 81 mg PO DAILY@1000 03/15/20 02/10/21 02/10/21 History isosorbide mononitrate 120 mg PO DAILY #30 tab 03/17/20 02/10/21 02/10/21 Rx fluticasone propionate 50 1 spray INTRANASAL DAILY 07/27/20 02/10/21 Unknown History mcg/actuation nasal spray,suspension ketoconazole 2 % shampoo 1 applic TOPICAL .2 x weekly #120 07/28/20 02/10/21 Unknown Rx ml pantoprazole 40 mg tablet,delayed 40 mg PO DAILY tab 09/27/20 02/10/21 02/10/21 History release gabapentin 100 mg PO BEDTIME 02/10/21 02/10/21 02/09/21 History Allergies Allergy/AdvReac Type Severity Reaction Status Date / Time hydrocodone Allergy Severe Unknown Verified 02/26/21 07:36 codeine Allergy Unknown Unknown Verified 02/26/21 07:36 PFSH Acute PFSH: Medical History Anticoagulation adequate with anticoagulant therapy Atherosclerotic heart disease of [place] coronary artery with other forms of angina pectoris Atherosclerotic heart disease of [place] coronary artery with unstable angina pectoris Atrial fibrillation CAD (coronary artery disease) Chronic kidney disease (CKD) CKD (chronic kidney disease) Dyslipidemia Essential hypertension GERD (gastroesophageal reflux disease) Ground glass opacity present on imaging of lung History of nonmelanoma skin cancer Inflammatory arthritis NSIP (nonspecific interstitial pneumonia) Peripheral neuropathy SLE (systemic lupus erythematosus related syndrome) Sleep apnea TIA (transient ischemic attack) Surgical History History of coronary angiogram History of neck surgery History of shoulder surgery History of surgery on wrist Family History Other CAD (coronary artery disease) Diabetes Hypertension Denies family history of Rheumatoid arthritis Lupus Lung disease Cancer Stroke Social History Smoking and tobacco status: former smoker Quit status (tobacco): has quit using tobacco Year quit tobacco: 1959 Former quit date comment: Hx of 1 PPD x 10 Years Second hand smoke exposure: No Smoking risk assessment/counseling performed?: Yes Alcohol intake: never Counseling given: No Counseling given: No Lives independently: Yes Household members: spouse Marital status: service: Yes Current occupational status: retired Pets and animals: No History of recent travel: No Current gender identity: Male Vitals/I&O/Wt Last Vital Signs Temp 97.1 F L 02/26/21 06:00 Pulse 92 02/26/21 07:36 Resp 18 02/26/21 07:36 BP 139/77 02/26/21 07:36 Pulse Ox 92 02/26/21 07:36 02/25/21 02/26/21 02/26/21 22:59 06:59 14:59 Intake Total 0.675 / 0.675 Balance 0.675 / 0.675 Weight last 48 hrs Weight 150 lb Physical Exam Narrative: EXAM NARRATIVE: GENERAL: Patient is arousable and orientedx3 NECK: No jugular vein distension. HEENT: No cyanosis. No icterus. No pallor. HEART: Irregularly rate S1 and S2. No murmur, rub or gallop. LUNGS: Decreased breath sound but no crackle bilaterally. ABDOMEN: Soft, nontender and nondistended. Positive bowel sounds. No guarding, rebound or tenderness. CENTRAL NERVOUS SYSTEM: Grossly nonfocal. EXTREMITIES: Lower extremities without edema bilaterally. Const: COMMON NORMALS: alert Resp: COMMON NORMALS: clear to auscultation bilaterally AUSCULTATION: clear to auscultation bilaterally Neuro: SENSORIUM/ORIENTATION: Yes alert Data : 02/26/21 06:09 02/26/21 06:09 A&P Assessment and plan (1) Non-ST elevation FL (NSTEMI): S/p drug-eluting stent to ostial and mid circumflex which is the culprit vessel. Continue aspirin statin and clopidogrel. Patient has been loaded with clopidogrel. Once stable will add back beta-sharri. Status: Acute (2) Atrial fibrillation: Rate control continue to monitor. Patient is on apixaban he will continue Status: Acute Qualifiers: Atrial fibrillation type: persistent (not longstanding) Qualified Code(s): I48.19 - Other persistent atrial fibrillation (3) Shock circulatory: Patient has a circulatory possible cardiogenic shock will continue Levophed and IV fluid. We will continue to monitor. Status: Acute (4) CKD (chronic kidney disease): Chronic CKD we will continue IV fluid. Will monitor for contrast-induced nephropathy. Levophed has been started to optimize blood flow to the kidneys. Further plan will be advised as per progress patient will check BMP in the am. Status: Acute Qualifiers: Chronic kidney disease stage: stage 3 (moderate) Chronic kidney disease stage 3 subtype: stage 3b (GFR 30-44) Qualified Code(s): N18.32 - Chronic kidney disease, stage 3b Attestations Medical Necessity Statement*: Patient require continuation hospitalization for above defined care. 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
--- NOTE | 2021-02-26 10:27 | XRR_ITS ---
PROCEDURE INFORMATION: Exam: XR Chest Exam date and time: 02/26/2021 10:27 AM Age: 80 years old Clinical indication: Shortness of breath; Patient HX: Just had cath; Additional info: Low o2 sats TECHNIQUE: Imaging protocol: XR of the chest. Views: 1 view. COMPARISON: CR (CHEST, ) 02/07/2021 10:54 PM FINDINGS: Lungs: Pulmonary vascular congestion with diffusely increased interstitial markings. No lobar consolidation. Pleural spaces: Unremarkable. No pleural effusion. No pneumothorax. Heart/Mediastinum: Cardiac silhouette mildly enlarged. Bones/joints: Anterior cervical plate and screws. XR/XR chest 1V [id number] IMPRESSION: Diffusely increased interstitial markings consistent with pulmonary edema versus atypical pneumonia.
--- NOTE | 2021-02-26 10:40 | PC.NURSE ---
received from cardiac matlab developer at 1000.report received.sr on monitor.pt is sedated.on non-rebreather at 15 l. upon admission to room,pts o2 sat in 60's.bipap order obtained and bipap instituted at 35%.stat pcxr obtained.marte catheter placed.levophed drip at 10 mcg/min from matlab developer.bp 134/93.levophed decreased to 5 mcg/min. sat quickly increased into 90's on bipap.sr.dr stokes in to see pt.read cxr.does not feel lasix is warranted at this time.pt began waking up from sedation...sats remained in 90's.levophed turned off at 1035....bp 152/74....then restarted at 5 mcg/min at 1047 for bp 84/51.right wrist with tr band on and inflated.right hand is warm to touch and with brisk capillary refill.no hematoma noted.palpable radial pulse noted distal to tr band.instructed pt and cg in activity restrictions s/p radial artery procedure...and instructed to notify staff for any bleeding,pain,numbness..or for any concerns at all.both verb understanding of instructions
[2021-02-26 12:05] LABS: Platelet Count 216 10^3/cmm (130-400)
[2021-02-26 12:35] LABS: Troponin 5 6HR 127.7 ng/L (0-15); Troponin 5 6HR Delta 76.7 ng/L (0-12)
--- NOTE | 2021-02-26 12:53 | USCV_ITS ---
Isaac Blanco Age: 80 Gender: M : 1940 Exam Date: 02/26/2021 13:24 Ordering Phys: Semaj Ferrell MD ([email or web address]) Technologist: Mariah Lewis Exam Location: [facility] [place] Indication: Post [place] BP: 139 / 77 HR: 66 Rhythm: Atrial fibrillation Technical Quality: Suboptimal MEASUREMENTS (Male / Female) Normal Values 2D ECHO LV Diastolic Diameter PLAX 3.2 cm 4.2 - 5.9 / 3.9 - 5.3 cm LV Systolic Diameter PLAX 1.9 cm LV Chamber Size 4.0 cm IVS Diastolic Thickness 1.9 cm 0.6 - 1.0 / 0.6 - 0.9 cm IVS Systolic Thickness 2.0 cm LVPW Diastolic Thickness 1.4 cm 0.6 - 1.0 / 0.6 - 0.9 cm LVPW Systolic Thickness 1.2 cm RV Chamber Size 2.5 cm LVOT Diameter 1.7 cm LV Ejection Fraction MOD 2C 58.3 % LV Ejection Fraction 2C AL 62.3 % LA Diameter 3.0 cm LA Width 3.7 cm LA Height 6.3 cm RA Width 3.1 cm RA Height 6.0 cm Aorta at Sinotubular Diameter 2.8 cm M-MODE LV Diastolic Diameter MM 6.0 cm 4.2 - 5.9 / 3.9 - 5.3 cm LV Systolic Diameter MM 4.6 cm LV Ejection Fraction MM Teich 44.4 % IVS Diastolic Thickness MM 0.8 cm 0.6 - 1.0 / 0.6 - 0.9 cm IVS Systolic Thickness MM 1.5 cm LVPW Diastolic Thickness MM 1.0 cm 0.6 - 1.0 / 0.6 - 0.9 cm LVPW Systolic Thickness MM 1.4 cm Aortic Annulus Diameter 3.9 cm LA Ao Ratio MM 1.1 MV E Point Septal Separation 0.3 cm DOPPLER AV Peak Velocity 90.0 cm/s LVOT Peak Velocity 90.0 cm/s AV Area Cont Eq vti 2.2 cm squared AV Area Cont Eq pk 2.3 cm squared MV Area PHT 2.7 cm squared Mitral E to A Ratio 0.6 MV E' Velocity 16.0 cm/s Mitral E to MV E' Ratio 8.1 Mitral E to LV E' Lateral Ratio 8.6 Mitral E to LV E' Septal Ratio 7.9 TR Peak Velocity 244.0 cm/s TR Peak Gradient 23.8 mmHg TV Peak E Velocity 25.0 cm/s Right Atrial Pressure 3.0 mmHg Pulmonary Artery Systolic Pressu 26.8 mmHg RV Acceleration Time 0.1 s RV Ejection Time 0.3 s RV AcT/ET 0.2 FINDINGS Left Ventricle Normal left ventricular cavity size. Normal left ventricular systolic function. No regional wall motion abnormalities. Low normal left ventricular size and systolic function, EF 50 %. Right Ventricle The right ventricle is normal in size and function. Right Atrium The right atrium is normal in size. Left Atrium The left atrium is normal in size. Mitral Valve Moderately thickened mitral valve. No mitral valve stenosis. Mild mitral valve regurgitation. Aortic Valve Moderate aortic valve calcification. No aortic valve stenosis. Mild aortic valve regurgitation. Tricuspid Valve Structurally normal tricuspid valve without significant stenosis or regurgitation. Pulmonary artery systolic pressure is normal. Pulmonic Valve Structurally normal pulmonic valve without significant stenosis. There is no pulmonic regurgitation. Pericardium Normal pericardium without effusion. Aorta Normal ascending aorta dimension. CONCLUSIONS 1-Normal left ventricular cavity size. Normal left ventricular systolic function. No regional wall motion abnormalities. Low normal left ventricular size and systolic function, EF 50 %. 2-Moderate aortic valve calcification. No aortic valve stenosis. Mild aortic valve regurgitation. 3-Moderately thickened mitral valve. No mitral valve stenosis. Mild mitral valve regurgitation. 4-There is no pericardial effusion. 5-Pulmonary artery systolic pressure is within normal limits. 6-Right atrial pressure is around 5 mm of mercury. 7-No significant change since the prior echocardiogram study of 03/16/2020. Semaj Ferrell MD (Electronically Signed) Final Date: 27 February 2021 18:59 S
--- NOTE | 2021-02-26 20:43 | PC.NURSE ---
tr band slowly deflated and eventually removed at 1600.no hematoma noted.right hand remains warm and with brisk capillary refill.palpable radial pulse noted.site dressed with 2x2 gauze secured with biocclusive drsg.instructed pt in activity restrictions s/p radial band removal..and instructed pt to notify staff for any bleeding ,pain,numbness,or for any concerns at all.pt verb understanding.will cont to monitor closely due to pt's forgetfulness
--- NOTE | 2021-02-26 21:35 | PC.NURSE ---
Heparin drip was not running upon my arrival on shift. Patient is post-cath.
[2021-02-27] VITALS (15 sets, daily range): BP systolic 115–156; BP diastolic 58–88; PULSE 67–110; RESP 10–21; TEMP 36.6–36.8; O2SAT 87–98
--- NOTE | 2021-02-27 03:32 | PC.NURSE ---
Shift Note Frequent safety and comfort rounds continue. Orders and/or nursing care completed as indicated. Patient monitored for response to intervention and treatment(s). Will continue to monitor.
[2021-02-27 06:11] LABS: Basophils % 0.3 %; Eosinophils # 0.1 10^3/uL (0.0-0.8); Eosinophils % 0.8 %; Hematocrit 37.2 % (42.0-52.0); Lymphocytes # 1.8 10^3/uL (0.8-4.8); Lymphocytes % 13.4 %; Mean Corpuscular HGB Conc 32.3 g/dL (30.0-36.0); Mean Corpuscular Hemoglobin 30.9 pg (28.0-34.0); Mean Corpuscular Volume 95.9 fl (80-94); Mean Platelet Volume 11.5 fL (7.4-10.4); Monocytes # 1.3 10^3/uL (0.2-0.9); Neutrophils # 9.84 10^3/uL (1.8-7.7); Nucleated Red Blood Cells % 0 %; Platelet Count 145 10^3/cmm (130-400); Red Blood Count 3.88 10^6/uL (4.1-5.3); Red Cell Distribution Width 14.2 % (12.1-15.1); White Blood Count 13.1 10^3/uL (4.0-10.0)
[2021-02-27 06:41] LABS: Alanine Aminotransferase 12 U/L (0-41); Albumin Level 3.5 g/dL (3.5-5.2); Alkaline Phosphatase 66 IU/L (40-130); Aspartate Amino Transferase 60 U/L (0-40); Blood Urea Nitrogen 25 mg/dL (8-23); Calcium 8.2 mg/dL (8.5-10.5); Carbon Dioxide 21 mmol/L (22-29); Chloride 105 mmol/L (98-107); Globulin 2.8 g/dL (1.3-4.6); Glucose 112 mg/dL (65-115); NT Pro B Type Natriuretic Pept 7002 pg/mL (0-450); Osmolality Calculated 295 mOsm/kg (285-295); Sodium 140 mmol/L (136-145); Thyroid Stimulating Hormone 2.09 uIU/mL (0.27-4.20); Total Bilirubin 0.7 mg/dL (0.15-1.2); Total Protein 6.3 g/dL (6.6-8.7)
--- NOTE | 2021-02-27 08:52 | ECG_ITS ---
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 Measurements Intervals [place] Rate: 96 P: NM: QRS: 14 QRSD: 109 T: 127 QT: 382 QTc: 484 Interpretive Statements ATRIAL FIBRILLATION WITH ABERRANT CONDUCTION OR VENTRICULAR PREMATURE COMPLEXES MARKED ST DEPRESSION, CONSIDER SUBENDOCARDIAL INJURY [0.2+ mV ST DEPRESSION] ACUTE MA Compared to ECG 02/10/2021 14:27:18 Ventricular premature complex(es) now present Aberrant conduction of supraventricular beat(s) now present Sinus bradycardia no longer present Left ventricular hypertrophy no longer present Myocardial infarct finding no longer present ST (T wave) deviation still present Electronically Signed On 02-27-2021 20:22:23 CONSTRUCTION IRONWORKER HELPER by Ce Huerta M.D. [id number]
[2021-02-27] MEDS: nitroglycerin 0.4 mg sublingual Tablet SUBLINGUAL ×2 (10:12→10:22)
[2021-02-27] MEDS: aspirin 81 mg EC Tablet PO (10:14)
[2021-02-27] MEDS: atorvastatin 40 mg Tablet PO (10:14)
[2021-02-27] MEDS: clopidogrel 75 mg Tablet PO (10:14)
[2021-02-27] MEDS: pantoprazole DR 40 mg Tablet PO (10:15)
--- NOTE | 2021-02-27 13:15 | PC.CHAP ---
Pastoral Care Encounter/Spiritual Assessment Type of Contact [] Declined literary agent visit [] Patient/Family/Request visit [] Outpatient visit [] Follow-up visit [] Physician referral [] Code/Alert [XX] Routine visit [] Staff referral [] Actively dying [] Patient sleeping [] Family support [] [] Out of room [] Palliative care [] [] Receiving care in room [] Pre-surgical visit [] Trauma [] Long length of stay [] ICU visit [XX] Other: present; literary agent visit was with , actually Relational/Emotional Strength [XX] Patient feels connected with others/family/visitors/staff [] Distress [] Loneliness/isolation [] Abandonment Spirituality of Patient [XX] Person of Radha [XX] Attends Rastafari of their Radha [XX] Believes in Prayer [XX] Reads Bible or Mormonism materials [] There are Spiritual issues to be addressed Oil Well Cable 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 Interventions [] Prayer [XX] Active listening [XX] Non-anxious presence [XX] Spiritual/emotional support [] Crisis/trauma care [] Spiritual counseling [] Bereavement support [] Provided bereavement packet [XX] Provided Bible/devotional materials [] Provided toy/stuffed animal, coloring book to patient or family member [] Provided Communion [] Anointing/[place] [] Salvation [XX] Completed spiritual assessment [] Other: Impact on Illness or Injury [] Angry [] Fearful [] Anxious [] Often cries [] Exhaustion [] Unable to work [] Unable to attend temple [] Unable to walk/stand [] Unable to read [] Unable to drive [] Unable to eat/drink [] Unable to sleep [] Unable to be with family [] Patient intubated [] Other: Summary: Pt's was in the room and answering literary agent's questions, so this visit was with pt's . Pt has had cardiac issues for the past couple of years. They have family and yazidism support. However, due to COVID, they stopped attending services unless it's an event held outside. Pt's was very talkative, seemingly of sound mind, good humor, and in good spirits, overall. Pt was quiet, watching football game but appreciative of the visit. Time spent with patient: 20 mins
--- NOTE | 2021-02-27 13:21 | PC.NURSE ---
pt c/o chest pain at approx 1000.substernal.no radiation.no sob or diaphoresis.ekg obtained.2 sl ntg given 5 min apart.b[ stable.cp relieved
[2021-02-27] MEDS: isosorbide mononitrate ER 60 mg Tablet PO (15:09)
[2021-02-27] MEDS: metoprolol succinate ER (24 HR) 25 mg Tablet PO (15:09)
[2021-02-27] MEDS: morphine 4 mg/mL SDV 1 mL 2 MG IVP (15:16)
[2021-02-27] MEDS: ranolazine (12HR) 500 mg Tablet PO ×2 (16:04→21:59)
--- NOTE | 2021-02-27 16:19 | P.PN_ITS ---
Subjective Subjective: Interval history: Patient heart is not under control he is still complaining of chest pain most likely when heart rate goes up afebrile chest pressure he status post drug-eluting stent to ostial and mid circumflex. Twelve-lead EKG is not changed from the prior Medications: Reviewed: Yes Vitals/I&O/Wt Last Vital Signs Temp 98.2 F 02/27/21 07:28 Pulse 93 02/27/21 13:42 Resp 21 H 02/27/21 15:16 BP 121/74 02/27/21 13:42 Pulse Ox 91 02/27/21 15:16 02/27/21 02/27/21 02/27/21 06:59 14:59 22:59 Intake Total 200 / 200 480 / 480 Output Total 425 / 425 450 / 450 Balance -225 / -225 30 / 30 Weight last 48 hrs Weight 162 lb 11.2 oz Weight 167 lb Weight 150 lb Physical Exam Narrative: EXAM NARRATIVE: GENERAL: Patient is arousable and orientedx3 NECK: No jugular vein distension. HEENT: No cyanosis. No icterus. No pallor. HEART: Irregularly rate S1 and S2. No murmur, rub or gallop. LUNGS: Decreased breath sound but no crackle bilaterally. ABDOMEN: Soft, nontender and nondistended. Positive bowel sounds. No guarding, rebound or tenderness. CENTRAL NERVOUS SYSTEM: Grossly nonfocal. EXTREMITIES: Lower extremities without edema bilaterally. Const: COMMON NORMALS: alert Resp: COMMON NORMALS: clear to auscultation bilaterally AUSCULTATION: clear to auscultation bilaterally Neuro: SENSORIUM/ORIENTATION: Yes alert Urinary Catheter Management^: Pritchard: Cath Placed During This Visit: yes, but has since been removed by the nurse Reason for Continuing Indwelling Catheter: Accurate Measurement of Urinary Ou tput in Critically Ill Patients Urinary Catheter Date of Insertion: 02/26/21 Urinary Catheter Time of Insertion: 10:30 Date Urinary Catheter Removed: 02/27/21 Time Urinary Catheter Discontinued: 12:00 Data : 02/27/21 05:04 02/27/21 05:04 A&P Assessment and plan (1) Non-ST elevation [place] (NSTEMI): S/p drug-eluting stent to ostial and mid circumflex which is the culprit vessel. Continue aspirin statin and clopidogrel. Patient has been loaded with clopidogrel. Once stable will add back beta-sharri. I will start patient on beta-sharri 25 mg metoprolol succinate now. We will try to control the heart rate. We will also add ranolazine to the regimen. Status: Acute (2) Atrial fibrillation: Rate control continue to monitor. Patient is on apixaban he will continue. Rate is not well controlled will add metoprolol succinate 25 mg if it does not get better will add calcium channel sharri on Cardizem. Status: Acute Qualifiers: Atrial fibrillation type: persistent (not longstanding) Qualified Code(s): I48.19 - Other persistent atrial fibrillation (3) Shock circulatory: Resolved. Patient is normotensive Status: Acute (4) CKD (chronic kidney disease): Creatinine is improving, creatinine is 1.4 now continue to monitor Status: Acute Qualifiers: Chronic kidney disease stage: stage 3 (moderate) Chronic kidney disease stage 3 subtype: stage 3b (GFR 30-44) Qualified Code(s): N18.32 - Chronic kidney disease, stage 3b Attestations Medical Necessity Statement*: Patient require continuation hospitalization for above defined care. 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
--- NOTE | 2021-02-27 19:51 | PC.NURSE ---
pt's hr (afib) has for most part remained bt 90's and 110.home meds resumed (cardizem,metoprolol,imdur and eliquis).received order to restart cardizem drip for sustained hr > 120.pt did c/o chest pain at approx 1000..substernal.no radiation.no sob or diaphoresis.ekg obtained.2 sl ntg given..with relief of cp obtained.mid-afternoon..cp reoccured.dr stokes ordered 2 mg mso4 and added ranexa to med regime..pain subsided.right wrist with drsg dry and intact and no hematoma noted
[2021-02-27] MEDS: apixaban 5 mg Tablet 2.5 MG PO (21:58)
[2021-02-28] VITALS (11 sets, daily range): BP systolic 114–140; BP diastolic 56–76; PULSE 64–75; RESP 18–24; TEMP 36.8–37.2; O2SAT 92–96
[2021-02-28 03:18] LABS: Basophils % 0.3 %; Eosinophils # 0.1 10^3/uL (0.0-0.8); Eosinophils % 0.4 %; Hematocrit 34.9 % (42.0-52.0); Hemoglobin 11.7 g/dL (11.7-16.6); Lymphocytes # 1.2 10^3/uL (0.8-4.8); Lymphocytes % 9.9 %; Mean Corpuscular HGB Conc 33.5 g/dL (30.0-36.0); Mean Corpuscular Hemoglobin 31.8 pg (28.0-34.0); Mean Corpuscular Volume 94.8 fl (80-94); Mean Platelet Volume 11.3 fL (7.4-10.4); Monocytes # 1.2 10^3/uL (0.2-0.9); Monocytes % 9.7 %; Neutrophils # 9.51 10^3/uL (1.8-7.7); Neutrophils % 79.4 %; Nucleated Red Blood Cells % 0 %; Platelet Count 139 10^3/cmm (130-400); Red Blood Count 3.68 10^6/uL (4.1-5.3)
[2021-02-28 03:44] LABS: Alanine Aminotransferase 14 U/L (0-41); Albumin Level 3.3 g/dL (3.5-5.2); Alkaline Phosphatase 60 IU/L (40-130); Anion Gap 13.8 (5-19); Aspartate Amino Transferase 45 U/L (0-40); Blood Urea Nitrogen 20 mg/dL (8-23); Calcium 7.9 mg/dL (8.5-10.5); Carbon Dioxide 24 mmol/L (22-29); Chloride 106 mmol/L (98-107); Glucose 112 mg/dL (65-115); Osmolality Calculated 293 mOsm/kg (285-295); Potassium 3.8 mmol/L (3.5-5.1); Sodium 140 mmol/L (136-145); Total Bilirubin 0.8 mg/dL (0.15-1.2); Total Protein 6.3 g/dL (6.6-8.7)
--- NOTE | 2021-02-28 06:11 | PC.NURSE ---
Frequent safety and comfort rounds continue. Orders and/or nursing care completed as indicated. Patient monitored for response to intervention and treatment(s). Education provided includes not getting out of bed without help. . Patient and/or guest experience representative verbalizes understanding. Will continue to monitor.
[2021-02-28] MEDS: ranolazine (12HR) 500 mg Tablet PO ×2 (09:08→18:24)
[2021-02-28] MEDS: pantoprazole DR 40 mg Tablet PO (09:09)
[2021-02-28] MEDS: apixaban 5 mg Tablet 2.5 MG PO ×2 (09:09→21:52)
[2021-02-28] MEDS: atorvastatin 40 mg Tablet PO (09:09)
[2021-02-28] MEDS: metoprolol succinate ER (24 HR) 25 mg Tablet PO (09:10)
[2021-02-28] MEDS: isosorbide mononitrate ER 60 mg Tablet PO (09:10)
[2021-02-28] MEDS: clopidogrel 75 mg Tablet PO (10:37)
--- NOTE | 2021-02-28 18:56 | P.PN_ITS ---
Subjective Subjective: Interval history: Heart rate is under control now patient denies any chest pain overall feeling much better Medications: Reviewed: Yes Vitals/I&O/Wt Last Vital Signs Temp 98.2 F 02/28/21 17:00 Pulse 68 02/28/21 17:00 Resp 24 H 02/28/21 17:00 BP 140/73 02/28/21 17:00 Pulse Ox 94 02/28/21 17:00 02/28/21 02/28/21 02/28/21 06:59 14:59 22:59 Intake Total 500 / 500 480 / 980 Output Total 700 / 2550 400 / 400 420 / 820 Balance -700 / -1650 100 / 100 60 / 160 Weight last 48 hrs Weight 162 lb 11.2 oz Physical Exam Narrative: EXAM NARRATIVE: GENERAL: Patient is arousable and orientedx3 NECK: No jugular vein distension. HEENT: No cyanosis. No icterus. No pallor. HEART: Regular rate S1 and S2. No murmur, rub or gallop. LUNGS: Decreased breath sound but no crackle bilaterally. ABDOMEN: Soft, nontender and nondistended. Positive bowel sounds. No guarding, rebound or tenderness. CENTRAL NERVOUS SYSTEM: Grossly nonfocal. EXTREMITIES: Lower extremities without edema bilaterally. Const: COMMON NORMALS: alert Resp: COMMON NORMALS: clear to auscultation bilaterally AUSCULTATION: clear to auscultation bilaterally Neuro: SENSORIUM/ORIENTATION: Yes alert Urinary Catheter Management^: Pritchard: Cath Placed During This Visit: yes, but has since been removed by the nurse Reason for Continuing Indwelling Catheter: Accurate Measurement of Urinary Output in Critically Ill Patients Urinary Catheter Date of Insertion: 02/26/21 Urinary Catheter Time of Insertion: 10:30 Date Urinary Catheter Removed: 02/27/21 Time Urinary Catheter Discontinued: 12:00 Data : 02/28/21 02:24 02/28/21 02:24 A&P Assessment and plan (1) Non-ST elevation [place] (NSTEMI): S/p drug-eluting stent to ostial and mid circumflex which is the culprit vessel. Continue aspirin statin and clopidogrel. Patient has been loaded with clopidogrel. Once stable will add back beta-sharri. I will start patient on beta-sharri 25 mg metoprolol succinate now. We will try to control the heart rate. We will also add ranolazine to the regimen. Since addition of beta-sharri and ranolazine, patient has done better. We will continue to watch him tonight to optimize medicine hopefully discharge tomorrow Status: Acute (2) Atrial fibrillation: Rate control continue to monitor. Patient is on apixaban he will continue. Rate is not well controlled will add metoprolol succinate 25 mg if it does not get better will add calcium channel sharri on Cardizem. Patient is in sinus rhythm, continue beta-sharri and anticoagulation Status: Acute Qualifiers: Atrial fibrillation type: persistent (not longstanding) Qualified Code(s): I48.19 - Other persistent atrial fibrillation (3) Shock circulatory: Resolved Status: Acute (4) CKD (chronic kidney disease): Improved. Status: Acute Qualifiers: Chronic kidney disease stage: stage 3 (moderate) Chronic kidney disease stage 3 subtype: stage 3b (GFR 30-44) Qualified Code(s): N18.32 - Chronic kidney disease, stage 3b Attestations Medical Necessity Statement*: Patient require continuation hospitalization for above defined care. 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
[2021-03-01] VITALS (7 sets, daily range): BP systolic 126–133; BP diastolic 53–64; PULSE 61–71; RESP 16–18; TEMP 36.8–37.1; O2SAT 91–98
--- NOTE | 2021-03-01 01:35 | PC.NURSE ---
Patient found out of bed trying to get ready to go home today. Patient teaching done that it was the middle of the night x 3 times. Asking about new medication prices of meds that the doctor stated he would have to start taking. Will continue to monitor. Bed alarm on. Patient very confused.
[2021-03-01 03:48] LABS: Basophils % 0.3 %; Eosinophils # 0.1 10^3/uL (0.0-0.8); Eosinophils % 1.3 %; Hematocrit 33.3 % (42.0-52.0); Hemoglobin 11.2 g/dL (11.7-16.6); Lymphocytes # 1.5 10^3/uL (0.8-4.8); Lymphocytes % 13.3 %; Mean Corpuscular HGB Conc 33.6 g/dL (30.0-36.0); Mean Corpuscular Hemoglobin 31.7 pg (28.0-34.0); Mean Corpuscular Volume 94.3 fl (80-94); Mean Platelet Volume 11.7 fL (7.4-10.4); Monocytes # 1.1 10^3/uL (0.2-0.9); Monocytes % 9.9 %; Neutrophils # 8.14 10^3/uL (1.8-7.7); Neutrophils % 74.9 %; Nucleated Red Blood Cells % 0 %; Platelet Count 132 10^3/cmm (130-400); Red Blood Count 3.53 10^6/uL (4.1-5.3); White Blood Count 10.9 10^3/uL (4.0-10.0)
[2021-03-01 04:16] LABS: Alanine Aminotransferase 12 U/L (0-41); Albumin Level 3.3 g/dL (3.5-5.2); Alkaline Phosphatase 57 IU/L (40-130); Anion Gap 15.9 (5-19); Aspartate Amino Transferase 29 U/L (0-40); Blood Urea Nitrogen 22 mg/dL (8-23); Calcium 7.9 mg/dL (8.5-10.5); Carbon Dioxide 22 mmol/L (22-29); Chloride 106 mmol/L (98-107); Globulin 3.2 g/dL (1.3-4.6); Glucose 105 mg/dL (65-115); Osmolality Calculated 294 mOsm/kg (285-295); Potassium 3.9 mmol/L (3.5-5.1); Sodium 140 mmol/L (136-145); Total Bilirubin 1.1 mg/dL (0.15-1.2); Total Protein 6.5 g/dL (6.6-8.7)
--- NOTE | 2021-03-01 07:54 | PM.PN ---
Subjective Subjective: Interval history: Patient remained in sinus rhythm denies any complaint Medications: Reviewed: Yes Vitals/I&O/Wt Last Vital Signs Temp 98.2 F 03/01/21 04:00 Pulse 63 03/01/21 04:12 Resp 18 03/01/21 04:00 BP 133/64 03/01/21 04:00 Pulse Ox 98 03/01/21 04:00 02/28/21 03/01/21 03/01/21 22:59 06:59 14:59 Intake Total 540 / 1040 60 / 1100 Output Total 1290 / 1690 870 / 2560 Balance -750 / -650 -810 / -1460 Physical Exam Narrative: EXAM NARRATIVE: GENERAL: Patient is arousable and orientedx3 NECK: No jugular vein distension. HEENT: No cyanosis. No icterus. No pallor. HEART: Regular rate S1 and S2. No murmur, rub or gallop. LUNGS: Decreased breath sound but no crackle bilaterally. ABDOMEN: Soft, nontender and nondistended. Positive bowel sounds. No guarding, rebound or tenderness. CENTRAL NERVOUS SYSTEM: Grossly nonfocal. EXTREMITIES: Lower extremities without edema bilaterally. Const: COMMON NORMALS: alert Resp: COMMON NORMALS: clear to auscultation bilaterally AUSCULTATION: clear to auscultation bilaterally Neuro: SENSORIUM/ORIENTATION: Yes alert Urinary Catheter Management^: Pritchard: Cath Placed During This Visit: yes, but has since been removed by the nurse Reason for Continuing Indwelling Catheter: Accurate Measurement of Urinary Output in Critically Ill Patients Urinary Catheter Date of Insertion: 02/26/21 Urinary Catheter Time of Insertion: 10:30 Date Urinary Catheter Removed: 02/27/21 Time Urinary Catheter Discontinued: 12:00 Data : 03/01/21 03:07 03/01/21 03:07 A&P Assessment and plan (1) Non-ST elevation [place] (NSTEMI): S/p drug-eluting stent to ostial and mid circumflex which is the culprit vessel. Continue aspirin statin and clopidogrel. Patient has been loaded with clopidogrel. Once stable will add back beta-sharri. I will start patient on beta-sharri 25 mg metoprolol succinate now. We will try to control the heart rate. We will also add ranolazine to the regimen. Since addition of beta-sharri and ranolazine, patient has done better. We will continue to watch him tonight to optimize medicine hopefully discharge tomorrow Denies any chest pain remains in sinus rhythm, continue Plavix apixaban Status: Acute (2) Atrial fibrillation: Rate control continue to monitor. Patient is on apixaban he will continue. Rate is not well controlled will add metoprolol succinate 25 mg if it does not get better will add calcium channel sharri on Cardizem. Patient remains in sinus rhythm continue current regimen Status: Acute Qualifiers: Atrial fibrillation type: persistent (not longstanding) Qualified Code(s): I48.19 - Other persistent atrial fibrillation (3) Shock circulatory: Resolved Status: Acute (4) CKD (chronic kidney disease): Improved. 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
[2021-03-01] MEDS: clopidogrel 75 mg Tablet PO (08:51)
[2021-03-01] MEDS: ranolazine (12HR) 500 mg Tablet PO (08:51)
[2021-03-01] MEDS: metoprolol succinate ER (24 HR) 25 mg Tablet PO (08:51)
[2021-03-01] MEDS: pantoprazole DR 40 mg Tablet PO (08:51)
[2021-03-01] MEDS: isosorbide mononitrate ER 60 mg Tablet PO (08:51)
[2021-03-01] MEDS: apixaban 5 mg Tablet 2.5 MG PO (08:51)
[2021-03-01] MEDS: atorvastatin 40 mg Tablet PO (08:51)
--- NOTE | 2021-03-01 10:13 | PC.NURSE ---
discharge instructions provided, no questions or concerns. IV removed, VS stable upon departure.
--- NOTE | 2021-03-01 17:16 | PC.SOCIAL ---
IMM UPDATED IMM dated and initialed an copy given to patient
--- NOTE | 2021-03-23 19:23 | P.DS_ITS ---
Discharge Providers Date of Admission: 02/26/21 08:45 Date of Discharge: March 23, 2021 Attending Provider at Admission: Semaj Ferrell MD Attending Provider at Discharge: Semaj Ferrell MD Primary Care Provider: Nikita Mosher MD Diagnoses at Discharge Discharge Diagnosis (1) Non-ST elevation NV (NSTEMI): Status: Resolved (2) Atrial fibrillation: Status: Acute Qualifiers: Atrial fibrillation type: persistent (not longstanding) Qualified Code(s): I48.19 - Other persistent atrial fibrillation (3) Shock circulatory: Status: Resolved (4) CKD (chronic kidney disease): Qualifiers: Chronic kidney disease stage: stage 3 (moderate) Chronic kidney disease stage 3 subtype: stage 3b (GFR 30-44) Qualified Code(s): N18.32 - Chronic kidney disease, stage 3b Reason for Visit Reason for Visit: Chest Pain Hospital Course Hospital Course 80-year-old male past medical history significant for coronary disease atrial fibrillation, atrial fibrillation congestive heart failure presented with non-ST ovation NV he was treated with drug-eluting stent to circumflex. A. fib was controlled with optimization of medicine. He was hydrated for CKD. Overall he is doing fine from cardiovascular perspective. He is being discharged home. Physical Exam Narrative: EXAM NARRATIVE: GENERAL: Patient is arousable and orientedx3 NECK: No jugular vein distension. HEENT: No cyanosis. No icterus. No pallor. HEART: Regular rate S1 and S2. No murmur, rub or gallop. LUNGS: Decreased breath sound but no crackle bilaterally. ABDOMEN: Soft, nontender and nondistended. Positive bowel sounds. No guarding, rebound or tenderness. CENTRAL NERVOUS SYSTEM: Grossly nonfocal. EXTREMITIES: Lower extremities without edema bilaterally. Const: COMMON NORMALS: alert Resp: COMMON NORMALS: clear to auscultation bilaterally AUSCULTATION: clear to auscultation bilaterally Neuro: SENSORIUM/ORIENTATION: Yes alert Urinary Catheter Management^: [place]: Cath Placed During This Visit: yes, but has since been removed by the nurse Reason for Continuing Indwelling Catheter: Accurate Measurement of Urinary Output in Critically Ill Patients Urinary Catheter Date of Insertion: 02/26/21 Urinary Catheter Time of Insertion: 10:30 Date Urinary Catheter Removed: 02/27/21 Time Urinary Catheter Discontinued: 12:00 Discharge Data Data Completed and Pending: Completed Studies During Hospitalization Category Date Time Status [employer] request for service Urgent Exams 02/26/21 06:49 Completed XR chest 1V [id number] Stat Exams 02/26/21 10:27 Completed XR chest 1V joel ble [id number] Routine Exams 02/26/21 06:11 Completed CV. echo complete * [id number] Routine Ultrasound 02/26/21 12:53 Completed Vitals: Last Vital Signs Temp 98.7 F 03/01/21 09:12 Pulse 69 03/01/21 12:17 Resp 16 03/01/21 12:17 BP 126/58 03/01/21 09:14 Pulse Ox 93 03/01/21 12:17 Discharge Plan Discharge Patient Disposition: Home Condition: Stable Prescriptions: New clopidogrel 75 mg Tablet 75 mg PO DAILY Qty: 90 RF: 4 ranolazine 500 mg Tablet Extended Release 12 Hr 500 mg PO BID Qty: 60 RF: 3 Continued pantoprazole 40 mg tablet,delayed release (DR/EC) 40 mg PO BID RF: 0 Eliquis 5 mg tablet 5 mg PO BID RF: 0 saw palmetto 450 mg capsule 450 mg PO BID RF: 0 multivitamin Tablet 1 tab PO DAILY RF: 0 atorvastatin 40 mg tablet 40 mg PO BEDTIME RF: 0 acetaminophen 500 mg Tablet 500 mg PO TID PRN (Reason: Pain) RF: 0 magnesium 250 mg Tablet 250 mg PO DAILY RF: 0 nitroglycerin 0.4 mg tablet, sublingual 0.4 mg sublingual Q5M PRN (Reason: chest pains) RF: 0 gabapentin 100 mg Capsule 100 mg PO BEDTIME RF: 0 polyethylene glycol 3350 [Miralax] 17 gram Powder In Packet 17 g PO DAILY RF: 0 Changed metoprolol tartrate 25 mg Tablet 25 mg PO BID Qty: 90 RF: 4 Discontinued aspirin 81 mg Tablet,Delayed Release (Dr/Ec) 81 mg PO DAILY@1000 RF: 0 isosorbide mononitrate 120 mg tablet extended release 24 hr 120 mg PO DAILY Qty: 30 RF: 0 No Action vitamin B complex Tablet 1 tab PO DAILY RF: 0 fluticasone propionate 50 mcg/actuation Rule,Suspension 1 spray INTRANASAL BEDTIME RF: 0 amoxicillin-pot clavulanate 875-125 mg tablet 1 tab PO BID RF: 0 isosorbide mononitrate 120 mg tablet extended release 24 hr 60 mg PO BID RF: 0 Discharge Orders: Discharge Order (Routine); Ordered 03/01/21 Ordered By: Semaj Ferrell Referrals: Garcia Chaparro M.D [Physician] - 04/18/21 3:15 pm (You have a cardiology followup with Dr. Chaparro at [facility] on April 18 at 3:15pm) Tabitha Jones FNP [Nurse Practitioner] - 03/08/21 12:45 pm (You have a post procedure followup with NILSA Anderson at [facility] on March 08 at 12:45pm) Nikita Mosher MD [Primary Care Provider] - 03/03/21 10:20 am (You have a hosiptal followup with Dr. Mosher at [facility] on March 03 at 10:20am) Discharge Diet: Cardiac Discharge Activity: Increase activity as tolerated Patient Instructions: Heart Attack (DC), Coronary Angioplasty (DC), Chronic Kidney Disease (DC), Opioid Safety, Post Angiogram Home Care Instructions Activity Restrictions/Additional Instructions: Follow-up with cardiology Ms. Tabitha Joens cardiology nurse practitioner in 7 days. Follow-up with Dr. Chaparro in 6 to 8 weeks. Continue clopidogrel and apixaban. If you notice any blood in the urine stool call your environmental health inspector Discharge Attestations Time Spent in Discharge Care*: greater than 30 min Specific Discharge Activities: educating patient Quality Metrics Clinical Quality Measures During this hospital stay, did patient experience: AMI Clinical Trial Participant: No Contraindication to aspirin (AMI): Aspirin given Contraindication to statin: Statin prescribed Contraindication to PCI: PCI performed Coding Level of Care Code Acute [facility] FW DC note Diagnoses Non-ST elevation NV (NSTEMI) I21.4 Atrial fibrillation I48.19 Atrial fibrillation type: persistent (not longstanding) Shock circulatory R57.9 CKD (chronic kidney disease) N18.32 Chronic kidney disease stage: stage 3 (moderate) Chronic kidney disease stage 3 subtype: stage 3b (GFR 30-44)
== END 2021-03-01 10:15 | disposition home or self-care (01) | DRG 246 ==
LOC: ER 06:48 → CCL 07:49 → CSU 10:08
PROVIDERS: Internal Medicine; Admitting Provider Internal Medicine Cardiovascular Disease; Emergency Provider Family Medicine; PCP Family Medicine; Visit Provider Internal Medicine Cardiovascular Disease
PROC: 027035Z Dilation of Coronary Artery, One Artery with Two Drug-eluting Intraluminal Devices, Percutaneous Approach (ICD-10-PCS; principal; 2021-02-26 08:00)
PROC: 027035Z Dilation of Coronary Artery, One Artery with Two Drug-eluting Intraluminal Devices, Percutaneous Approach (ICD-10-PCS; 2021-02-26 08:00)
DX: I21.4 Non-ST elevation (NSTEMI) myocardial infarction (principal); R57.0 Cardiogenic shock; I48.19 Other persistent atrial fibrillation; I25.110 Atherosclerotic heart disease of native coronary artery with unstable angina pectoris; I12.9 Hypertensive chronic kidney disease with stage 1 through stage 4 chronic kidney disease, or unspecified chronic kidney disease; N18.32 Chronic kidney disease, stage 3b; E78.5 Hyperlipidemia, unspecified; K21.9 Gastro-esophageal reflux disease without esophagitis; Z85.828 Personal history of other malignant neoplasm of skin; G62.9 Polyneuropathy, unspecified; M32.9 Systemic lupus erythematosus, unspecified; G47.30 Sleep apnea, unspecified; Z86.73 Personal history of transient ischemic attack (TIA), and cerebral infarction without residual deficits; Z87.891 Personal history of nicotine dependence; M48.02 Spinal stenosis, cervical region
CPT/HCPCS: 36415; 51702; 71045; 80053; 82550; 83735; 83880; 84443; 84484; 85025; 85049; 85347; 85610; 85730; 93005; 93306; 93454; 94010; 94660; 94726; 94729; 96374; 96375; 99285; C1725; C1769; C1874; C1887; C1894; C9600; J1644; J2250; J2270; J2405; J3010; J3246; J3490; J7030; Q9967

== ENCOUNTER 2021-03-04 01:55 | Inpatient (IN) | payer OTHER, MEDICARE, SELFPAY ==
[2021-03-04] VITALS (19 sets, daily range): BP systolic 106–148; BP diastolic 54–94; PULSE 56–112; RESP 10–22; TEMP 36.7–36.8; O2SAT 90–96; BMI 23.5
--- NOTE | 2021-03-04 02:00 | XRR_ITS ---
PROCEDURE INFORMATION: Exam: XR Chest Exam date and time: 03/04/2021 2:00 AM Age: 80 years old Clinical indication: Chest wall pain; Additional info: Cp TECHNIQUE: Imaging protocol: XR of the chest. Views: 1 view. COMPARISON: CR XR chest 1V [id number] 02/26/2021 10:14 AM FINDINGS: Lungs: There is enlargement of the pulmonary vascularity. There is thickening of the interstitial markings. Findings have improved slightly since the previous examination. Pleural spaces: Unremarkable. No pleural effusion. No pneumothorax. Heart/Mediastinum: The heart is mildly enlarged. Bones/joints: Anterior cervical fixation hardware is in place. XR/XR chest 1V portable [id number] IMPRESSION: Congestive heart failure versus atypical pneumonia. Findings have improved slightly since the previous examination.
--- NOTE | 2021-03-04 02:00 | ECG_ITS ---
[facility] Test Date: 2021-03-04 Pat Name: Isaac Blanco Department: Room: Gender: Male Acquisition Manager: : 1940 Requested By: Serenity Sierra Order Number: [id number] Radha MD: SOFIE JOYCE Measurements Intervals [place] Rate: 102 P: [place]: QRS: 18 QRSD: 117 T: 68 QT: 388 QTc: 506 Interpretive Statements ATRIAL FIBRILLATION WITH RAPID VENTRICULAR RESPONSE WITH ABERRANT CONDUCTION OR VENTRICULAR PREMATURE COMPLEXES MODERATE INTRAVENTRICULAR CONDUCTION DELAY [110+ ms QRS DURATION] MINIMAL VOLTAGE CRITERIA FOR LVH, CONSIDER NORMAL VARIANT [MEETS CRITERIA IN ONE OF: R(aVL), S(V1), R(V5), R(V5/V6)+S(V1)] MARKED ST DEPRESSION, CONSIDER SUBENDOCARDIAL INJURY [0.2+ mV ST DEPRESSION] ACUTE MA Compared to ECG 02/27/2021 08:59:15 Intraventricular conduction delay now present ST (T wave) deviation still present Electronically Signed On 03-06-2021 19:59:17 MOTOR TEACHER by SOFIE JOYCE [id number]
--- NOTE | 2021-03-04 02:19 | ED_ITS ---
HPI - Chest Pain General: Chief Complaint: Chest Pain Stated Complaint: chest pains Time Seen by Provider: 03/04/21 02:00 Source: patient Mode of arrival: ambulatory Limitations: no limitations History of Present Illness: HPI narrative: 80-year-old male who is had extensive cardiac history patient was admitted here and had stents placed on Sunday for his chest pain. States he had episodes 24 hours ago of chest pain saw his PCP today was told he could take nitros states he had more chest pain tonight is taken 3 nitros with minimal improvement states he still having pain i n the center of his chest he rates a 6 out of 10. He denies any worsening improving factors denies any nausea denies any shortness of breath denies any cough or fever. Associated symptoms: Deny abdominal pain, dyspnea, fever(s), nausea or vomiting Review of Systems Const: Denies: fever(s), chills, body aches or change in appetite Eyes: Denies: blurry vision or eye discomfort ENMT: Denies: throat pain or dental pain Card: Reports: chest pain Resp: Denies: dyspnea GI: Denies: abdominal pain, nausea, vomiting or diarrhea : Denies: dysuria Musc: Denies: neck pain or back pain Skin/Breast: Denies: rash Neuro: Denies: headache(s) Psych: Denies: depression Ever/Lymph: Denies: easy bruising All/Imm: Denies: urticaria PFSH ED PFSH: Medical History Anticoagulation adequate with anticoagulant therapy 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 Atrial fibrillation CAD (coronary artery disease) Chronic kidney disease (CKD) CKD (chronic kidney disease) Dyslipidemia Essential hypertension GERD (gastroesophageal reflux disease) Ground glass opacity present on imaging of lung History of nonmelanoma skin cancer Inflammatory arthritis NSIP (nonspecific interstitial pneumonia) Peripheral neuropathy SLE (systemic lupus erythematosus related syndrome) Sleep apnea TIA (transient ischemic attack) Surgical History History of coronary angiogram History of neck surgery History of shoulder surgery History of surgery on wrist Family History Other CAD (coronary artery disease) Diabetes Hypertension Denies family history of Rheumatoid arthritis Lupus Lung disease Cancer Stroke Social History Smoking and tobacco status: former smoker Quit status (tobacco): has quit using tobacco Year quit tobacco: 1959 Former quit date comment: Hx of 1 PPD x 10 Years Second hand smoke exposure: No Smoking risk assessment/counseling performed?: Yes Alcohol intake: never Counseling given: No Counseling given: No Lives independently: Yes Household members: spouse Marital status: service: Yes Current occupational status: retired Pets and animals: No History of recent travel: No Current gender identity: Male Physical Exam Const: COMMON NORMALS: no acute distress, patient oriented x3 and healthy appearing HENMT: COMMON NORMALS: normocephalic and atraumatic HEAD & SCALP: normocephalic and atraumatic Eye: COMMON NORMALS: Equal, round and reactive pupils present and EOMs intact bilaterally PUPIL: Yes Equal, round and reactive pupils present Neck/C-Spine: COMMON NORMALS: full ROM and supple Chest: COMMONS NORMALS: normal inspection of the chest and normal palpation of entire chest wall Resp: COMMON NORMALS: normal respiratory effort, No retractions, No use of accessory muscles and clear to auscultation bilaterally AUSCULTATION: clear to auscultation bilaterally Cardio: COMMON NORMALS: regular rate, regular rhythm and No murmurs present (Cardio) RATE: regular rate RHYTHM: regular rhythm GI: COMMON NORMALS: Normal to inspection, nondistended, normoactive bowel sounds present, Soft to palpation, non-tender and no masses PALPATION: Yes Soft to palpation Extremity: COMMON NORMALS: normal to inspection and full ROM Neuro: COMMON NORMALS: patient oriented x3, moves all extremities and no focal motor deficits Psych: COMMON NORMALS: mental status grossly normal, Normal thought process present and cooperative THOUGHT PROCESS: Normal thought process present Skin: COMMON NORMALS: no rashes or lesions noted and no wounds GENERAL SKIN EXAM: no rashes or lesions noted Course Vital Signs: Vital signs: Vital Signs Temperature 98.3 F 03/04/21 02:03 Pulse Rate 96 03/04/21 03:30 Respiratory Rate 15 03/04/21 03:30 Blood Pressure 126/85 03/04/21 03:30 Pulse Oximetry 93 03/04/21 03:30 MDM - Chest Pain MDM Narrative: Medical decision making narrative: Patient presents with chest pain that since resolved here with morphine initial troponin was elevated but he did have a recent cath this could cause elevation will admit since he had a recent stent placement give him Lovenox and trend troponins spoke to hospitalist who is admitting. Lab Data: Labs: Lab Results 03/04/21 03/04/21 03/04/21 02:20 02:20 02:37 WBC 9.9 10^3/uL 10^3/ uL (4.0-10.0) RBC 3.77 10^6/uL L 10 ^6/uL (4.1-5.3) Hgb 11.9 g/dL g/dL (11.7-16.6) Hct 35.2 % L % (42.0-52.0) MCV 93.4 fl fl (80-94) MCH 31.6 pg pg (28.0-34.0) MCHC 33.8 g/dL g/dL (30.0-36.0) RDW 13.8 % % (12.1-15.1) Plt Count 172 10^3/cmm 10^3 /cmm (130-400) MPV 11.5 fL H fL (7.4-10.4) Neut % (Auto) 78.2 % % Lymph % (Auto) 11.2 % % [place] % (Auto) 7.2 % % Eos % (Auto) 2.7 % % Baso % (Auto) 0.3 % % Neut # (Auto) 7.71 10^3/uL H 10 ^3/uL (1.8-7.7) Lymph # (Auto) 1.1 10^3/uL 10^3/ uL (0.8-4.8) [place] # (Auto) 0.7 10^3/uL 10^3/ uL (0.2-0.9) Eos # (Auto) 0.3 10^3/uL 10^3/ uL (0.0-0.8) Baso # (Auto) 0.0 10^3/uL 10^3/ uL (0.0-0.1) Nucleated RBC % (a uto) 0 % % Nucleated RBCs # 0.0 /100WBC /100W BC PT INR Sodium 138 mmol/L mmol/L (136-145) Potassium 3.7 mmol/L mmol/L (3.5-5.1) Chloride 104 mmol/L mmol/L (98-107) Carbon Dioxide 15 mmol/L L mmol/ L (22-29) Anion Gap 22.7 H (5-19) BUN 20 mg/dL mg/dL (8-23) Creatinine 1.3 mg/dL H mg/dL (0.7-1.2) GFR Calculation Not Reportable Glucose 130 mg/dL H mg/dL (65-115) Calculated Osmolal ity 290 mOsm/kg mOsm/ kg (285-295) Calcium 8.2 mg/dL L mg/dL (8.5-10.5) Total Bilirubin 0.7 mg/dL mg/dL (0.15-1.2) AST 20 U/L U/L (0-40) ALT 13 U/L U/L (0-41) Alkaline Phosphata se 59 IU/L IU/L (40-130) Troponin T Baselin e 993 ng/L H* ng/L (0-15) Total Protein 6.7 g/dL g/dL (6.6-8.7) Albumin 3.7 g/dL g/dL (3.5-5.2) Globulin 3.0 g/dL g/dL (1.3-4.6) 03/04/21 02:57 WBC RBC Hgb Hct MCV MCH MCHC RDW Plt Count MPV Neut % (Auto) Lymph % (Auto) [place] % (Auto) Eos % (Auto) Baso % (Auto) Neut # (Auto) Lymph # (Auto) [place] # (Auto) Eos # (Auto) Baso # (Auto) Nucleated RBC % (a uto) Nucleated RBCs # PT 20.90 SECONDS H S ECONDS (12.1-14.9) INR 1.76 H (0.8-1.2) Sodium Potassium Chloride Carbon Dioxide Anion Gap BUN Creatinine GFR Calculation Glucose Calculated Osmolal ity Calcium Total Bilirubin AST ALT Alkaline Phosphata se Troponin T Baselin e Total Protein Albumin Globulin Imaging Data^: CXR: Attestation: I personally reviewed and interpreted this imaging study as follows: My impression: no acute abnormality EKG Data^: EKG 1: Attestation: I personally reviewed and interpreted this EKG as follows: EKG interpretation date: 03/04/21 EKG interpretation time: 02:09 Interpretation: afib with rvr hr [address] st depression lateral leads unchanged from previous ekg qrs 117 qtc 447 Discharge Plan Discharge Patient Disposition: Placed in Observation Clinical Impression: Chest pain Condition: Stable Prescriptions: No Action pantoprazole 40 mg tablet,delayed release (DR/EC) 40 mg PO BID RF: 0 Eliquis 5 mg tablet 2.5 mg PO BID@1000,2100 RF: 0 saw palmetto 450 mg capsule 450 mg PO BID RF: 0 multivitamin Tablet 1 tab PO DAILY@1000 RF: 0 atorvastatin 40 mg tablet 40 mg PO BEDTIME RF: 0 acetaminophen 500 mg Tablet 500 mg PO TID RF: 0 magnesium 250 mg Tablet 250 mg PO DAILY@1000 RF: 0 vitamin B complex 1 tab PO DAILY@1000 RF: 0 nitroglycerin 0.4 mg tablet, sublingual 0.4 mg sublingual Q5M PRN (Reason: chest pains) RF: 0 gabapentin 100 mg Capsule 100 mg PO BEDTIME RF: 0 Miralax 17 gram Powder In Packet 17 g PO DAILY RF: 0 clopidogrel 75 mg Tablet 75 mg PO DAILY Qty: 90 RF: 4 ranolazine 500 mg Tablet Extended Release 12 Hr 500 mg PO BID Qty: 60 RF: 3 isosorbide mononitrate 120 mg tablet extended release 24 hr 60 mg PO DAILY Qty: 30 RF: 0 metoprolol tartrate 25 mg Tablet 25 mg PO BID Qty: 90 RF: 4 Referrals: Nikita Mosher MD [Primary Care Provider] - Coding Level of Care Code ED [place] Paver Operator for Chg Fwd Exam Comprehensive
[2021-03-04] MEDS: ondansetron 2 mg/ML SDV 2 mL 4 MG IVP (02:45)
[2021-03-04] MEDS: morphine 4 mg/mL SDV 1 mL IVP (02:45)
[2021-03-04 02:47] LABS: Basophils % 0.3 %; Eosinophils # 0.3 10^3/uL (0.0-0.8); Eosinophils % 2.7 %; Hematocrit 35.2 % (42.0-52.0); Hemoglobin 11.9 g/dL (11.7-16.6); Lymphocytes # 1.1 10^3/uL (0.8-4.8); Lymphocytes % 11.2 %; Mean Corpuscular HGB Conc 33.8 g/dL (30.0-36.0); Mean Corpuscular Hemoglobin 31.6 pg (28.0-34.0); Mean Corpuscular Volume 93.4 fl (80-94); Mean Platelet Volume 11.5 fL (7.4-10.4); Monocytes # 0.7 10^3/uL (0.2-0.9); Monocytes % 7.2 %; Neutrophils # 7.71 10^3/uL (1.8-7.7); Neutrophils % 78.2 %; Nucleated Red Blood Cells % 0 %; Platelet Count 172 10^3/cmm (130-400); Red Blood Count 3.77 10^6/uL (4.1-5.3); Red Cell Distribution Width 13.8 % (12.1-15.1); White Blood Count 9.9 10^3/uL (4.0-10.0)
[2021-03-04 03:02] LABS: Alanine Aminotransferase 13 U/L (0-41); Albumin Level 3.7 g/dL (3.5-5.2); Alkaline Phosphatase 59 IU/L (40-130); Anion Gap 22.7 (5-19); Aspartate Amino Transferase 20 U/L (0-40); Blood Urea Nitrogen 20 mg/dL (8-23); Calcium 8.2 mg/dL (8.5-10.5); Carbon Dioxide 15 mmol/L (22-29); Chloride 104 mmol/L (98-107); Glucose 130 mg/dL (65-115); Osmolality Calculated 290 mOsm/kg (285-295); Potassium 3.7 mmol/L (3.5-5.1); Sodium 138 mmol/L (136-145); Total Bilirubin 0.7 mg/dL (0.15-1.2); Total Protein 6.7 g/dL (6.6-8.7)
[2021-03-04 03:07] LABS: Troponin(5th) Baseline 993 ng/L (0-15)
[2021-03-04 03:12] LABS: INR 1.76 (0.8-1.2)
[2021-03-04] MEDS: enoxaparin 80 mg/0.8 mL Syringe 70 MG SUBCUT ×2 (03:28→18:13)
--- NOTE | 2021-03-04 04:00 | ECG_ITS ---
[facility] Test Date: 2021-03-04 Pat Name: Isaac Blanco Department: Room: Gender: Male Scullion Chief: : 1940 Requested By: Serenity Sierra Order Number: [id number] Reading MD: SOFIE JOYCE Measurements Intervals [place] Rate: 93 P: [place]: QRS: 8 QRSD: 126 T: 69 QT: 418 QTc: 521 Interpretive Statements ELECTRONIC VENTRICULAR PACEMAKER ABNORMAL RHYTHM ECG Compared to ECG 03/04/2021 02:09:11 Atrial fibrillation no longer present Ventricular premature complex(es) no longer present Aberrant conduction of supraventricular beat(s) no longer present Intraventricular conduction delay no longer present ST (T wave) deviation no longer present Electronically Signed On 03-06-2021 20:00:19 RENAL CASE MANAGER by SOFIE JOYCE [id number]
[2021-03-04 04:28] LABS: NT Pro B Type Natriuretic Pept 9091 pg/mL (0-450)
[2021-03-04 04:43] LABS: Troponin 5 2HR 913.8 ng/L (0-15)
--- NOTE | 2021-03-04 06:50 | P.HP_ITS ---
Providers/Chief Complaint Admitting Physician: Kacie Win MD Primary Care Provider: Nikita Mosher MD Chief Complaint: chest pains History of Present Illness Isaac Blanco is a 80 year old male past medical history significant for mild to moderately depressed ejection fraction, history of multivessel small vessel obstructive and nonobstructive coronary artery disease , chronic kidney disease with baseline creatinine of 1.5-1.6, cervical stenosis, SLE, Interstitial lung disease, dyslipidemia, chronic atrial fibrillation, with recent NSTEMI and cardiogenic shock on 02/26 s/p drug-eluting stent to ostial and mid circumflex. Echo with low normal left ventricular size and systolic function, EF 50%. Returns today with chest pain not relieved with sublingual nitro x3, EKG shows ST-T wave depression in leads II, V5, V6. Troponin elevated at 993, 2-hour troponin downtrending at 918. Reports compliance with his Plavix and Eliquis. Currently pain improved after 4 mg of morphine in the ER. Chest x-ray with changes suggestive of CHF, bilateral infiltrates though appearing to be improved compared to 02/26/2021. BNP 9000. Review of Systems General: Reports: 10 or more systems reviewed and unremarkable except in HPI and below Const: Denies: fever(s), chills or body aches Eyes: Denies: change in vision, blurry vision or photophobia ENMT: Denies: throat pain, enlarged tonsils, odynophagia or nasal congestion Card: Denies: chest pain, palpitations, irregular heart rhythm, edema, swelling of feet/ankles, lightheadedness, pre-syncope, dyspnea on exertion or orthopnea Resp: Denies: dyspnea, productive cough, non-productive cough, wheezing, stridor, pain on inspiration, change in phlegm color, hemoptysis or chest congestion GI: Denies: abdominal pain, nausea, vomiting, hematemesis, coffee ground emesis, dysphagia, heartburn, diarrhea, constipation, GI cramping, change in stool character, hematochezia or melena : Denies: flank pain, dysuria, urinary frequency, urinary urgency, urinary hesitancy or hematuria Musc: Denies: neck pain, back pain, extremity pain, joint swelling, joint warmth or deformity Neuro: Denies: headache(s), numbness in extremities, weakness in extremities, sensory changes, difficulty walking, frequent falls, dizziness, vertigo, behav ioral changes, Slurred speech present or seizure-like activity Psych: Denies: anxiety, depression, suicidal ideation or homicidal ideation Endo: Denies: polyuria, polydipsia, tired all the time, cold intolerance or hot flashes Ever/Lymph: Denies: easy bruising or easy bleeding Medications/Allergies Home Medications Medication Instructions Recorded Confirmed Last Taken Type apixaban 5 mg tablet 2.5 mg PO BID@1000,2100 08/21/19 03/03/21 02/10/21 History saw palmetto 450 mg capsule 450 mg PO BID 08/21/19 03/03/21 02/10/21 History acetaminophen 500 mg PO TID 02/17/20 03/03/21 02/10/21 History atorvastatin 40 mg PO BEDTIME 02/17/20 03/03/21 02/09/21 History magnesium 250 mg PO DAILY@1000 02/17/20 03/03/21 02/10/21 History multivitamin 1 tab PO DAILY@1000 02/17/20 03/03/21 02/10/21 History nitroglycerin 0.4 mg SUBLINGUAL Q5M PRN 02/17/20 03/03/21 03/15/20 History vitamin B complex 1 tab PO DAILY@1000 02/17/20 03/03/21 02/10/21 History pantoprazole 40 mg tablet,delayed 40 mg PO BID tab 09/27/20 03/03/21 02/10/21 History release gabapentin 100 mg PO BEDTIME 02/10/21 03/03/21 02/09/21 History Miralax 17 g PO DAILY 02/27/21 03/03/21 Unknown History clopidogrel 75 mg PO DAILY #90 tab 03/01/21 03/03/21 Unknown Rx isosorbide mononitrate 60 mg PO DAILY #30 tab 03/01/21 03/03/21 02/10/21 Rx metoprolol tartrate 25 mg PO BID #90 tab 03/01/21 03/03/21 Unknown Rx ranolazine 500 mg PO BID #60 tab 03/01/21 03/03/21 Unknown Rx Allergies Allergy/AdvReac Type Severity Reaction Status Date / Time hydrocodone Allergy Severe Unknown Verified 02/26/21 07:36 codeine Allergy Unknown Unknown Verified 02/26/21 07:36 PFSH Acute PFSH: Medical History (Updated 03/04/21 @ 07:19 by Kacie Win MD) Anticoagulation adequate with anticoagulant therapy Atherosclerotic heart disease of [place] coronary artery with other forms of angina pectoris Atherosclerotic heart disease of [place] coronary artery with unstable angina pectoris Atrial fibrillation CAD (coronary artery disease) Chronic kidney disease (CKD) CKD (chronic kidney disease) COVID-19 resolved, Mar 2020 Dyslipidemia Essential hypertension GERD (gastroesophageal reflux disease) Ground glass opacity present on imaging of lung History of nonmelanoma skin cancer Inflammatory arthritis NSIP (nonspecific interstitial pneumonia) Peripheral neuropathy SLE (systemic lupus erythematosus related syndrome) Sleep apnea TIA (transient ischemic attack) Surgical History History of coronary angiogram History of neck surgery History of shoulder surgery History of surgery on wrist Family History Other CAD (coronary artery disease) Diabetes Hypertension Denies family history of Rheumatoid arthritis Lupus Lung disease Cancer Stroke Social History Smoking and tobacco status: former smoker Quit status (tobacco): has quit using tobacco Year quit tobacco: 1959 Former quit date comment: Hx of 1 PPD x 10 Years Second hand smoke exposure: No Smoking risk assessment/counseling performed?: Yes Alcohol intake: never Counseling given: No Counseling given: No Lives independently: Yes Household members: spouse Marital status: service: Yes Current occupational status: retired Pets and animals: No History of recent travel: No Current gender identity: Male Vitals/I&O/Wt Last Vital Signs Temp 98.3 F 03/04/21 02:03 Pulse 57 L 03/04/21 06:29 Resp 18 03/04/21 04:55 BP 117/60 03/04/21 06:29 Pulse Ox 95 03/04/21 06:29 Weight last 48 hrs Weight 68.039 kg Physical Exam Const: COMMON NORMALS: no acute distress, average body habitus, patient michelle corado x3, no limitations, healthy appearing, alert and well nourished HENMT: COMMON NORMALS: normocephalic and atraumatic HEAD & SCALP: normocephalic and atraumatic Eye: COMMON NORMALS: Equal, round and reactive pupils present, EOMs intact bilaterally, conjunctivae normal and no scleral icterus CONJUNCTIVA: Yes con junctivae normal PUPIL: Yes Equal, round and reactive pupils present Neck/C-Spine: COMMON NORMALS: no JVD Resp: COMMON NORMALS: normal respiratory effort, No retractions, No use of accessory muscles, clear to auscultation bilaterally and percussion normal AUSCULTATION: clear to auscultation bilaterally PERCUSSION: percussion normal Cardio: COMMON NORMALS: no JVD, regular rate, regular rhythm, S1 normal heart sound present, S2 normal heart sound present, No gallops present (Cardio), No clicks present (Cardio), No murmurs present (Cardio), No rub (Cardio) and Peripheral pulses 2+ throughout RATE: regular rate RHYTHM: regular rhythm HEART SOUNDS: S1 normal heart sound present and S2 normal heart sound present PERIPHERAL PULSES: Peripheral pulses 2+ throughout GI: COMMON NORMALS: Normal to inspection, nondistended, normoactive bowel sounds present, Soft to palpation, non-tender, No hepatosplenomegaly present, no masses and no bruits PALPATION: Yes Soft to palpation and Yes No hepatospl enomegaly present Extremity: COMMON NORMALS: normal to inspection, full ROM, capillary refill normal, no joint enlargement, no clubbing, cyanosis or edema, no calf tenderness and no pedal edema Neuro: COMMON NORMALS: patient oriented x3, CN's II-XII intact bilaterally, moves all extremities, no focal motor deficits, no sensory deficits noted, deep tendon reflexes 2+ bilaterally and gait normal SENSORIUM/ORIENTATION: Yes alert Psych: COMMON NORMALS: mental status grossly normal, Normal thought process present, cooperative, normal affect, speech normal, activity/motor behavior normal, denies hallucinations, denies homicidal ideation and denies suicidal ideation SPEECH: Yes normal speech THOUGHT PROCESS: Normal thought process present Skin: COMMON NORMALS: no rashes or lesions noted, no wounds, turgor normal, no jaundice, no petechiae and no mottling GENERAL SKIN EXAM: no rashes or lesions noted and turgor normal Data : 03/04/21 02:37 03/04/21 02:20 A&P Assessment and plan (1) Chest pain: Status: Acute Qualifiers: Chest pain type: unspecified Qualified Code(s): R07.9 - Chest pain, unspecified (2) NSTEMI (non-ST elevated myocardial infarction): Status: Acute Additional A&P Information Patient with multiple comorbidities as noted above, recent NSTEMI with cardiogenic shock status post PCI with drug-eluting stents on 02/26/2021 presents today with chest pain, ST-T wave changes in leads II, V5, V6 and elevated troponins. Concern for in-stent thrombosis given recent history. Given Lovenox 70 mg in the emergency room. Hold Eliquis for now, continue Lovenox 70 mg every 12 hours anticipate patient may need [employer] Manager procedures. Continue Plavix 75 mg p.o. daily, statin, beta-blockers Cardiology consult Serial troponins at 2 and 6 hours. As needed morphine for pain management Continue Imdur and Ranexa N.p.o. for possible [employer] procedure Attestations Medical Necessity Statement*: > 2 midnight admission for above defined care anticipated Coding Level of Care Code Acute Industrial Relations Commissioner for Eleazar Hargrove Diagnoses Chest pain R07.9 Chest pain type: unspecified NSTEMI (non-ST elevated myocardial infarction) I21.4
[2021-03-04] MEDS: FUROsemide 10 mg/mL SDV 2mL 20 MG IVP (07:33)
--- NOTE | 2021-03-04 08:00 | ECG_ITS ---
[facility] Test Date: 2021-03-04 Pat Name: Isaac Blanco Department: Room: EDIP Gender: Male Morning [employer]sc[employer] Producer: : 1940 Requested By: Serenity Sierra Order Number: [id number] Reading MD: SOFIE JOYCE Measurements Intervals [place] Rate: 66 P: 62 ME: 183 QRS: 28 QRSD: 117 T: 75 QT: 465 QTc: 488 Interpretive Statements ELECTRONIC VENTRICULAR PACEMAKER ABNORMAL RHYTHM ECG Compared to ECG 03/04/2021 04:00:59 No significant changes Electronically Signed On 03-06-2021 20:00:18 SHOE CLERK by SOFIE JOYCE [id number]
[2021-03-04 08:16] LABS: SARS Covid-2 Antigen Negative (Negative)
--- NOTE | 2021-03-04 08:41 | PC.PHAR ---
Addendum entered by Aby Rachel 03/04/21 08:45: discharge papers from 03/01/21 and [facility] eliquis 2.5mg bid pt states he thought it was changed to 5mg bid pt states that hes been taking 5mg bid for 2 days Original Note: pt states he takes care of his own medications-pt states he is wanting someone to help him with his medications-[facility] was taking mycophenolate mofetil 500mg bid pt states he hasnt taken in 3-4 weeks pt states wanted him to dc this medication-[facility] pacerone 50mg daily pt states that medication was dced-notes are made in the pharmacy comments
[2021-03-04] MEDS: clopidogrel 75 mg Tablet PO (08:54)
[2021-03-04] MEDS: metoprolol tartrate 25 mg Tablet PO ×2 (08:54→18:12)
[2021-03-04] MEDS: pantoprazole DR 40 mg Tablet PO (08:54)
[2021-03-04 08:59] LABS: Troponin 5 6HR 962.3 ng/L (0-15); Troponin 5 6HR Delta -30.7 ng/L (0-12)
--- NOTE | 2021-03-04 10:39 | PC.NURSE ---
Pharmacy was over an hour late bringing/loading 2 meds: Isosorbide and Ranolazine
[2021-03-04] MEDS: isosorbide mononitrate ER 60 mg Tablet 120 MG PO (10:41)
[2021-03-04] MEDS: ranolazine (12HR) 500 mg Tablet PO ×2 (10:41→18:12)
--- NOTE | 2021-03-04 12:36 | PC.NURSE ---
Out put 300 mls , one void
--- NOTE | 2021-03-04 13:21 | PC.NURSE ---
Meal served to pt and
--- NOTE | 2021-03-04 18:27 | P.CONIM_ITS ---
Providers/Reason For Consult Consulting Physician/Specialty*: Cardiology Reason for Consult*: Non-ST elevation UT Attending Physician: Jarocho Tejeda MD Primary Care Provider: Nikita Mosher MD History of Present Illness History of Present Illness Isaac Blanco is a 80 year old male past medical history significant for chronic atrial fibrillation, [place], hypertension, congestive heart failure, chronic kidney disease, anemia, extensive coronary artery disease with small vessel disease on anticoagulation recently for worsening of chest pain despite of optimization of medicine and heart failure underwent left heart cath he was noted to have significant ostial and mid L left circumflex disease which were treated with 2 drug-eluting stents it was also noted patient had significant subtotally occluded small caliber ramus intermedius, small caliber but medium size diagonal with 70 to 80% proximal lesion mid to distal LAD has tandem lesion mid LAD lesion was hazy but appeared to be moderate, it was thought that we should treat him with medicine for the rest of the lesions since we will fix the culprit ONE and because of the fact we did not like to wish to use a lot of dye in order to protect her kidneys. Patient was discharged 3 days back, according to him he started noticing chest pain again yesterday he took 2 nitroglycerin which relieved the pain but this morning pain continues to be constant and did not stop. Since pain did not stop and become recurrent he came here he was noted to have positive troponin around 1100 with delta slightly reduced. We have been asked to see the patient twelve-lead EKG is consistent with non-ST elevation UT has not changed from the prior. He has been admitted for further advice and treatment. Review of Systems General: Reports: 10 or more systems reviewed and unremarkable except in HPI and below Const: Denies: fever(s), chills, body aches or change in appetite Eyes: Denies: change in vision, blurry vision, photophobia or eye discomfort ENMT: Denies: throat pain, enlarged tonsils, odynophagia, dental pain or nasal congestion Card: Denies: chest pain, palpitations, irregular heart rhythm, edema, swelling of feet/ankles, lightheadedness, pre-syncope, dyspnea on exertion or orthopnea Resp: Denies: dyspnea, productive cough, non-productive cough, wheezing, stridor, pain on inspiration, change in phlegm color, hemoptysis or chest congestion GI: Denies: abdominal pain, nausea, vomiting, hematemesis, coffee ground emesis, dysphagia, heartburn, diarrhea, constipation, GI cramping, change in stool character, hematochezia or melena : Denies: flank pain, dysuria, urinary frequency, urinary urgency, urinary hesitancy or hematuria Musc: Denies: neck pain, back pain, extremity pain, joint swelling, joint warmth or deformity Skin/Breast: Denies: rash Neuro: Denies: headache(s), numbness in extremities, weakness in extremities, sensory changes, difficulty walking, frequent falls, dizziness, vertigo, behavioral changes, Slurred speech present or seizure-like activity Psych: Denies: anxiety, depression, suicidal ideation or homicidal ideation Endo: Denies: polyuria, polydipsia, tired all the time, cold intolerance or hot flashes Ever/Lymph: Denies: easy bruising or easy bleeding All/Imm: Denies: urticaria or acute wheezing Meds/Allergies Home Medications and Allergies Home Medications Medication Instructions Recorded Confirmed Last Taken Type apixaban 5 mg tablet 5 mg PO BID 08/21/19 03/04/21 02/10/21 History saw palmetto 450 mg capsule 450 mg PO BID 08/21/19 03/04/21 02/10/21 History acetaminophen 500 mg PO TID 02/17/20 03/04/21 02/10/21 History atorvastatin 40 mg PO BEDTIME 02/17/20 03/04/21 02/09/21 History magnesium 250 mg PO DAILY 02/17/20 03/04/21 02/10/21 History multivitamin 1 tab PO DAILY 02/17/20 03/04/21 02/10/21 History nitroglycerin 0.4 mg SUBLINGUAL Q5M PRN 02/17/20 03/04/21 03/15/20 History pantoprazole 40 mg tablet,delayed 40 mg PO BID tab 09/27/20 03/04/21 02/10/21 History release gabapentin 100 mg PO BEDTIME 02/10/21 03/04/21 02/09/21 History polyethylene glycol 3350 [Miralax] 17 g PO DAILY 02/27/21 03/04/21 Unknown History clopidogrel 75 mg PO DAILY #90 tab 03/01/21 03/04/21 Unknown Rx isosorbide mononitrate 60 mg PO DAILY #30 tab 03/01/21 03/04/21 02/10/21 Rx metoprolol tartrate 25 mg PO BID #90 tab 03/01/21 03/04/21 Unknown Rx ranolazine 500 mg PO BID #60 tab 03/01/21 03/04/21 Unknown Rx fluticasone propionate [Flonase] 1 spray INTRANASAL BEDTIME 03/04/21 03/04/21 Unknown History vitamin B complex 1 tab PO DAILY 03/04/21 03/04/21 Unknown History Allergies Allergy/AdvReac Type Severity Reaction Status Date / Time hydrocodone Allergy Severe Unknown Verified 03/04/21 08:40 codeine Allergy Unknown Unknown Verified 03/04/21 08:40 Current Medications Current Medications Generic Name Dose Route Start Last Admin Trade Name Freq PRN Reason Stop Dose Admin Clopidogrel Bisulfate 75 mg 03/04/21 09:00 03/04/21 08:54 Clopidogrel 75 Mg Tablet PO 75 mg DAILY MISSY Administration Enoxaparin Sodium 70 mg 03/04/21 06:45 03/04/21 18:13 Enoxaparin 80 Mg/0.8 Ml Syringe SUBCUT 70 mg Q12H MISSY Administration Isosorbide Mononitrate 120 mg 03/04/21 09:00 03/04/21 10:41 Isosorbide Mononitrate Er 60 Mg Tablet PO 120 mg DAILY MISSY Administration Metoprolol Tartrate 25 mg 03/04/21 09:00 03/04/21 18:12 Metoprolol Tartrate 25 Mg Tablet PO 25 mg BID MISSY Administration Pantoprazole Sodium 40 mg 03/04/21 09:00 03/04/21 08:[address] 40 Mg Tablet PO 40 mg DAILY MISSY Administration Ranolazine 500 mg 03/04/21 09:00 03/04/21 18:12 Ranolazine (12hr) 500 Mg Tablet PO 500 mg BID MISSY Administration PFSH Acute PFSH: Medical History (Updated 03/04/21 @ 18:55 by Semaj Ferrell MD) Anticoagulation adequate with anticoagulant therapy Atherosclerotic heart disease of [place] coronary artery with other forms of angina pectoris Atherosclerotic heart disease of [place] coronary artery with unstable angina pectoris Atrial fibrillation CAD (coronary artery disease) Chronic kidney disease (CKD) CKD (chronic kidney disease) COVID-19 resolved, Mar 2020 Dyslipidemia Essential hypertension GERD (gastroesophageal reflux disease) Ground glass opacity present on imaging of lung History of nonmelanoma skin cancer Inflammatory arthritis NSIP (nonspecific interstitial pneumonia) Peripheral neuropathy SLE (systemic lupus erythematosus related syndrome) Sleep apnea TIA (transient ischemic attack) Surgical History History of coronary angiogram History of neck surgery History of shoulder surgery History of surgery on wrist Family History Other CAD (coronary artery disease) Diabetes Hypertension Denies family history of Rheumatoid arthritis Lupus Lung disease Cancer Stroke Social History Smoking and tobacco status: former smoker Quit status (tobacco): has quit using tobacco Year quit tobacco: 1959 Former quit date comment: Hx of 1 PPD x 10 Years Second hand smoke exposure: No Smoking risk assessment/counseling performed?: Yes Alcohol intake: never Counseling given: No Counseling given: No Lives independently: Yes Household members: spouse Marital status: service: Yes Current occupational status: retired Pets and animals: No History of recent travel: No Current gender identity: Male Dietary Habits: Current diet type/program: regular Caffeine: No Vitals/I&O/Wt Last Vital Signs Temp 98.0 F 03/04/21 16:00 Pulse 67 03/04/21 16:46 Resp 16 03/04/21 16:00 BP 106/55 03/04/21 16:00 Pulse Ox 93 03/04/21 16:46 03/04/21 03/04/21 03/04/21 06:59 14:59 22:59 Output Total 1200 / 1200 Balance -1200 / -1200 Weight last 48 hrs Weight 150 lb Physical Exam Narrative: EXAM NARRATIVE: GENERAL: Patient is alert, awake and oriented x3. NECK: No jugular vein distension. HEENT: No cyanosis. No icterus. No pallor. HEART: Irregular S1 and S2. No murmur, rub or gallop. LUNGS: Clear to auscultate bilaterally. ABDOMEN: Soft, nontender and nondistended. Positive bowel sounds. No guarding, rebound or tenderness. CENTRAL NERVOUS SYSTEM: Grossly nonfocal. EXTREMITIES: Lower extremities withOUT edema bilaterally. A&P Assessment and plan (1) NSTEMI (non-ST elevated myocardial infarction): Patient says that he cannot live like this he continues to have chest pain despite of optimization of medicine and recent PCI, patient has multivessel disease he is not a good candidate for surgery, patient has suffered another non-ST elevation [place] most likely ramus intermedius which is small vessel and not amenable to intervention. Since he continues to have off-and-on chest pains, we will proceed with left heart cath to assess mid LAD and diagonal lesion for possible intervention. Patient has been explained all risk benefit and knowledge of the for the procedure he understand risk for contrast-induced nephropathy leading to temporary or permanent dialysis. He understand risk for bleeding. Understand risk for stroke major minor bleed. He says he would like to proceed with it we will ask for left heart cath in the morning. Until then we will continue to treat him medically. Status: Acute (2) CKD (chronic kidney disease): CKD is at the baseline 1.3 continue to monitor we will proceed with left heart cath we will try to hydrate him before and after the cath. Status: Acute Qualifiers: Chronic kidney disease stage: stage 3 (moderate) Chronic kidney disease stage 3 subtype: stage 3b (GFR 30-44) Qualified Code(s): N18.32 - Chronic kidney disease, stage 3b (3) Ischemic cardiomyopathy: Due to non-ST elevation [place], will proceed with a left heart cath Status: Acute (4) Essential hypertension: Well-controlled continue medicine Status: Acute (5) Atrial fibrillation: Rate controlled. Continue to monitor hold anticoagulation/apixaban before the cath. Will cover with Lovenox Status: Acute Qualifiers: Atrial fibrillation type: persistent (not longstanding) Qualified Code(s): I48.19 - Other persistent atrial fibrillation Consult Attestations Medical Necessity Statement: Patient require continuation hospitalization for above defined care. 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
[2021-03-04] MEDS: gabapentin 100 mg Capsule PO (22:05)
[2021-03-04] MEDS: atorvastatin 40 mg Tablet PO (22:05)
[2021-03-05] VITALS (11 sets, daily range): BP systolic 114–143; BP diastolic 55–93; PULSE 60–66; RESP 13–22; TEMP 36.2–36.8; O2SAT 90–95
[2021-03-05 05:10] LABS: Basophils % 0.4 %; Eosinophils # 0.3 10^3/uL (0.0-0.8); Eosinophils % 3.4 %; Hematocrit 34.2 % (42.0-52.0); Hemoglobin 11.5 g/dL (11.7-16.6); Lymphocytes # 1.9 10^3/uL (0.8-4.8); Lymphocytes % 20.5 %; Mean Corpuscular HGB Conc 33.6 g/dL (30.0-36.0); Mean Corpuscular Hemoglobin 31.9 pg (28.0-34.0); Mean Platelet Volume 11.4 fL (7.4-10.4); Monocytes # 0.9 10^3/uL (0.2-0.9); Monocytes % 9.5 %; Neutrophils # 6.04 10^3/uL (1.8-7.7); Neutrophils % 65.8 %; Nucleated Red Blood Cells % 0 %; Platelet Count 180 10^3/cmm (130-400); Red Cell Distribution Width 13.9 % (12.1-15.1); White Blood Count 9.2 10^3/uL (4.0-10.0)
[2021-03-05 05:34] LABS: Alanine Aminotransferase 12 U/L (0-41); Albumin Level 3.3 g/dL (3.5-5.2); Alkaline Phosphatase 60 IU/L (40-130); Anion Gap 18.7 (5-19); Aspartate Amino Transferase 16 U/L (0-40); Blood Urea Nitrogen 23 mg/dL (8-23); Calcium 8.2 mg/dL (8.5-10.5); Carbon Dioxide 20 mmol/L (22-29); Chloride 102 mmol/L (98-107); Globulin 3.4 g/dL (1.3-4.6); Glucose 94 mg/dL (65-115); Osmolality Calculated 287 mOsm/kg (285-295); Potassium 3.7 mmol/L (3.5-5.1); Sodium 137 mmol/L (136-145); Total Bilirubin 0.8 mg/dL (0.15-1.2); Total Protein 6.7 g/dL (6.6-8.7)
[2021-03-05] MEDS: enoxaparin 80 mg/0.8 mL Syringe 70 MG SUBCUT (06:39)
--- NOTE | 2021-03-05 09:30 | PC.NURSE ---
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 heart cath rescheduled for tomorrow. Dr. Ferrell telephoned with orders to check BMP in morning. If creatinine is 1.3 or less patient will have cath tomorrow. Infuse IV fluids at 100ml/hr over night. Additionally hold lovenox.
[2021-03-05] MEDS: ranolazine (12HR) 500 mg Tablet PO ×2 (09:54→18:01)
[2021-03-05] MEDS: isosorbide mononitrate ER 60 mg Tablet 120 MG PO (09:55)
[2021-03-05] MEDS: pantoprazole DR 40 mg Tablet PO (09:55)
[2021-03-05] MEDS: clopidogrel 75 mg Tablet PO (09:55)
[2021-03-05] MEDS: sodium chloride 0.9% 1,000 ML 100 ML IV ×2 (09:56→20:26)
--- NOTE | 2021-03-05 10:41 | PM.PN ---
Subjective Subjective: Interval history: Denies any chest pain. Creatinine has increased to 1.5. We will hold on for left heart cath today since patient is stable and creatinine has worsened. I would like to start IV fluid 100 mL/h will recheck creatinine in the morning if at baseline that is less than 1.3 then we will proceed with left heart cath. Continue current regimen for now. Medications: Reviewed: Yes Vitals/I&O/Wt Last Vital Signs Temp 98.2 F 03/05/21 04:00 Pulse 66 03/05/21 04:00 Resp 22 H 03/05/21 04:00 BP 115/93 03/05/21 04:00 Pulse Ox 90 03/05/21 04:00 Weight last 48 hrs Weight 150 lb Physical Exam Narrative: EXAM NARRATIVE: GENERAL: Patient is alert, awake and oriented x3. NECK: No jugular vein distension. HEENT: No cyanosis. No icterus. No pallor. HEART: Irregular S1 and S2. No murmur, rub or gallop. LUNGS: Clear to auscultate bilaterally. ABDOMEN: Soft, nontender and nondistended. Positive bowel sounds. No guarding, rebound or tenderness. CENTRAL NERVOUS SYSTEM: Grossly nonfocal. EXTREMITIES: Lower extremities withOUT edema bilaterally. Data : 03/05/21 04:20 03/05/21 04:20 A&P Assessment and plan (1) NSTEMI (non-ST elevated myocardial infarction): Patient says that he cannot live like this he continues to have chest pain despite of optimization of medicine and recent PCI, patient has multivessel disease he is not a good candidate for surgery, patient has suffered another non-ST elevation OR most likely ramus intermedius which is small vessel and not amenable to intervention. Since he continues to have off-and-on chest pains, we will proceed with left heart cath to assess mid LAD and diagonal lesion for possible intervention. Patient has been explained all risk benefit and knowledge of the for the procedure he understand risk for contrast-induced nephropathy leading to temporary or permanent dialysis. He understand risk for bleeding. Understand risk for stroke major minor bleed. He says he would like to proceed with it we will ask for left heart cath in the morning. Until then we will continue to treat him medically. Currently stable continue current regimen. Left heart cath is put on hold due to worsening of creatinine. Explained to patient and his at bedside both are in agreement. Status: Acute (2) CKD (chronic kidney disease): On today's visit creatinine is 1.5 we will start patient on IV fluid 100 mL/h. Status: Acute Qualifiers: Chronic kidney disease stage: stage 3 (moderate) Chronic kidney disease stage 3 subtype: stage 3b (GFR 30-44) Qualified Code(s): N18.32 - Chronic kidney disease, stage 3b (3) Ischemic cardiomyopathy: Appear to be stable and chest pain-free for now. Left heart cath is on hold for worsening of creatinine. Status: Acute (4) Essential hypertension: Stable blood pressure celeste and other vitals. Continue current regimen. Status: Acute (5) Atrial fibrillation: Rate controlled will bridge with Lovenox as apixaban is on hold for cath. Status: Acute Qualifiers: Atrial fibrillation type: persistent (not longstanding) Qualified Code(s): I48.19 - Other persistent atrial fibrillation Attestations Medical Necessity Statement*: Patient require continuation hospitalization for above defined care. 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
--- NOTE | 2021-03-05 15:23 | P.PN_ITS ---
Subjective Subjective: Interval history: No complaints overnight. Patient has remained hemodynamically stable. Denies any further chest pain. Family at bedside. Plan was to do cardiac catheterization today but was deferred given mild elevation in creatinine to 1.5. Medications: Reviewed: Yes Vitals/I&O/Wt Last Vital Signs Temp 97.2 F L 03/05/21 14:38 Pulse 64 03/05/21 14:38 Resp 15 03/05/21 14:38 BP 143/67 03/05/21 14:38 Pulse Ox 92 03/05/21 14:38 Weight last 48 hrs Weight 68.039 kg Data : 03/05/21 04:20 03/05/21 04:20 A&P Assessment and plan (1) Chest pain: Status: Acute Qualifiers: Chest pain type: unspecified Qualified Code(s): R07.9 - Chest pain, unspecified (2) NSTEMI (non-ST elevated myocardial infarction): Status: Acute (3) Atrial fibrillation: Status: Acute Qualifiers: Atrial fibrillation type: persistent (not longstanding) Qualified Code (s): I48.19 - Other persistent atrial fibrillation (4) CKD (chronic kidney disease): Status: Acute Qualifiers: Chronic kidney disease stage: stage 3 (moderate) Chronic kidney disease stage 3 subtype: stage 3b (GFR 30-44) Qualified Code(s): N18.32 - Chronic kidney disease, stage 3b (5) Dyslipidemia: Status: Acute (6) Essential hypertension: Status: Acute (7) Anticoagulation adequate with anticoagulant therapy: Status: Acute Additional A&P Information NSTEMI: Recent history of NSTEMI with cardiogenic shock, post PCI with a drug- eluting stent on 02/26. Last echocardiogram from 07/27 shows an EF of 50%, no regional motion more abnormality, mild MR. Continue with home dose of Plavix, statin, beta-sharri. Continue with Lovenox 1 mg/kg body weight every 12 hourly. Appreciate cardiology recommendations. Plan for cardiac catheterization tomorrow after repeat renal functions. N.p.o. after midnight. Continue with home dose of Imdur, Ranexa, nitrate as needed. Atrial fibrillation: Rate controlled. Continue with home dose of beta-sharri. Full dose Lovenox on hold for now as per cardiology. Can hold off tomorrow morning for cardiac catheterization. TOMAS: Baseline creatinine seems to be 1.4-1.7. Admission 1.3. Worsening to 1.5 today. Renal ultrasound. Gentle hydration with normal saline as per cardiology. Full code. Cardiac diet, n.p.o. after midnight. Protonix for PUD prophylaxis. Attestations Medical Necessity Statement*: Requires further hospitalization for management of non-ST elevation NV, TOMAS on CKD Time Spent in Patient Care: Greater than 35 minutes (>than 50% of time spent in counselling and/or direct pt care on unit) . 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
[2021-03-05] MEDS: metoprolol tartrate 25 mg Tablet PO (18:01)
[2021-03-05] MEDS: atorvastatin 40 mg Tablet PO (20:24)
[2021-03-05] MEDS: gabapentin 100 mg Capsule PO (20:24)
[2021-03-06] VITALS (7 sets, daily range): BP systolic 116–151; BP diastolic 58–70; PULSE 58–120; RESP 14–22; O2SAT 89–97
[2021-03-06 03:40] LABS: Anion Gap 16.7 (5-19); Blood Urea Nitrogen 21 mg/dL (8-23); Calcium 7.8 mg/dL (8.5-10.5); Carbon Dioxide 20 mmol/L (22-29); Chloride 106 mmol/L (98-107); Glucose 88 mg/dL (65-115); Osmolality Calculated 290 mOsm/kg (285-295); Potassium 3.7 mmol/L (3.5-5.1); Sodium 139 mmol/L (136-145)
--- NOTE | 2021-03-06 06:18 | PC.NURSE ---
Frequent safety and comfort rounds continue. Orders and/or nursing care completed as indicated. Patient monitored for response to intervention and treatment(s). Education provided includes staying NPO after midnight and IV safety.. Patient and/or labor representative verbalizes understanding. Will continue to monitor.
[2021-03-06] MEDS: clopidogrel 75 mg Tablet PO (08:27)
[2021-03-06] MEDS: aspirin 81 mg EC Tablet PO (08:27)
[2021-03-06] MEDS: metoprolol tartrate 25 mg Tablet PO (08:27)
[2021-03-06] MEDS: isosorbide mononitrate ER 60 mg Tablet 120 MG PO (08:27)
[2021-03-06] MEDS: ranolazine (12HR) 500 mg Tablet PO ×2 (08:27→18:37)
[2021-03-06] MEDS: pantoprazole DR 40 mg Tablet PO (08:28)
--- NOTE | 2021-03-06 12:15 | P.PN_ITS ---
Subjective Subjective: Interval history: No documents events overnight. Has remained chest pain-free. Plan for cardiac catheterization later in the day today. On room air. Has remained hemodynamically free. Medications: Reviewed: Yes Vitals/I&O/Wt Last Vital Signs Temp 97.2 F L 03/05/21 14:38 Pulse 68 03/06/21 08:00 Resp 14 03/06/21 08:00 BP 151/70 03/06/21 08:00 Pulse Ox 94 03/06/21 08:00 03/05/21 03/06/21 03/06/21 22:59 06:59 14:59 Intake Total 1000 / 1000 Balance 1000 / 1000 Physical Exam Narrative: EXAM NARRATIVE: General: No acute distress, AO x3 HEENT: PERRLA, pupils bilaterally equal and reactive Chest: Normal vesicular breath sounds, bilateral lower zone crackles present, equal good air entry bilaterally CVS: S1-S2 regular, no murmurs, no tachycardia, no gallops, no rubs Abdomen: Soft, nontender, no organomegaly, bowel sounds present Neuro: No focal deficits, no facial deformity, AO x3, power 5/5 in all limbs Data : 03/05/21 04:20 03/06/21 03:11 A&P Assessment and plan (1) Chest pain: Status: Acute Qualifiers: Chest pain type: unspecified Qualified Code(s): R07.9 - Chest pain, unspecified (2) NSTEMI (non-ST elevated myocardial infarction): Status: Acute (3) Atrial fibrillation: Status: Acute Qualifiers: Atrial fibrillation type: persistent (not longstanding) Qualified Code(s): I48.19 - Other persistent atrial fibrillation (4) CKD (chronic kidney disease): Status: Acute Qualifiers: Chronic kidney disease stage: stage 3 (moderate) Chronic kidney disease stage 3 subtype: stage 3b (GFR 30-44) Qualified Code(s): N18.32 - Chronic kidney disease, stage 3b (5) Dyslipidemia: Status: Acute (6) Essential hypertension: Status: Acute (7) Anticoagulation adequate with anticoagulant therapy: Status: Acute Additional A&P Information NSTEMI: Recent history of NSTEMI with cardiogenic shock, post PCI with a drug- eluting stent on 02/26. Last echocardiogram from 07/27 shows an EF of 50%, no regional motion more abnormality, mild MR. Continue with home dose of Plavix, statin, beta-sharri. Continue with Lovenox 1 mg/kg body weight every 12 hourly. Appreciate cardiology recommendations. Plan for cardiac catheterization tomorrow after repeat renal functions. N.p.o. after midnight. Continue with home dose of Imdur, Ranexa, nitrate as needed. Atrial fibrillation: Rate controlled. Continue with home dose of beta-sharri. Full dose Lovenox on hold for now as per cardiology. Can hold off tomorrow morning for cardiac catheterization. TOMAS: Baseline creatinine seems to be 1.4-1.7. Admission 1.3. Worsening to 1.5 today. Renal ultrasound. Gentle hydration with normal saline as per cardiology. Full code. N.p.o. for cardiac catheterization, cardiac diet post cardiac catheterization. Protonix for PUD prophylaxis. Plan for day: Plan for cardiac catheterization today. Gentle IV hydration. Continue with full dose Lovenox as per cardiology. Attestations Medical Necessity Statement*: Further hospitalization for management of non-ST elevation NE in setting of CAD, recent cardiac catheterization. Time Spent in Patient Care: Greater than 35 minutes (>than 50% of time spent in counselling and/or direct pt care on unit) . 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
--- NOTE | 2021-03-06 13:30 | PC.NURSE ---
Patient taken to earth science laboratory technician on carrier.
--- NOTE | 2021-03-06 13:39 | XACV_ITS ---
Exam Room: [facility] Ht: 170 cm Wt: 68 kg BSA: 1.80 m2 Gender: Male : 1940 Any Known Allergies: Other Exam Priority: Routine Indication(s): - Non-ST elevation VA - Chest Pain in spite of Medical Tx Procedure(s): Procedure Description: Diagnostic procedure Procedure Description: PCI procedure Procedure Description: Drug Eluting Coronary Stent Procedure Description: PTCA Procedure Description: Miscellaneous Procedure Description: Perclose Procedure Description: ACT Procedure Description: Coronary Angiography Procedure Description: Pressure Wire JOSE ALBERTO, Mariaelena; Diagnostic Cath Status: Urgent Diagnostic Findings * Left Main: luminal irregularities 20% stenosis, ERVIN: 3 flow. * Distal Left Anterior Descending: significant 75% stenosis, ERVIN: 0 flow, iFR performed: ratio is 0.75. * Proximal Right Coronary Artery to Distal Right Coronary Artery: luminal irregularities 20% stenosis, ERVIN: 3 flow. * Distal Circumflex: significant 80% stenosis, ERVIN: 3 flow. * Ramus: severe 90% stenosis, ERVIN: 3 flow. * 1st Diagonal: severe 90% stenosis, ERVIN: 2 flow. * 2nd Diagonal: significant 80% stenosis, ERVIN: 3 flow. * Coronary angiography shows right dominance. PCI Status: Urgent PCI Indication: NSTE - ACS Interventional Findings * I * FR: After equalizing the distal and proximal pressure of * I * FR wire proximal to the lesion, mid L * AD * lesion was crossed with * I * FR wire. * I * FR was recorded as 0.75, which * was * significant * . * Distal Left Anterior Descendin% stenosis treated with a Drug Eluting Stent. 0% residual stenosis, ERVIN: 3 flow. * Distal Circumflex: 80% stenosis treated with a AB MINI TREK 2.00X15 RX BALLOON. 20% residual stenosis, ERVIN: 3 flow. * 1st Diagonal: 90% stenosis treated with a AB MINI TREK 2.00X15 RX BALLOON. 0% residual stenosis, ERVIN: 3 flow. * 2nd Diagonal: 80% stenosis treated with a Balloon. 20% residual stenosis. Conclusions 1. For worsening of chest pain and non-ST elevation VA patient was brought and admitted. Medical management was offered but since he continues to have recurrent chest pain with dynamic EKG changes we decided to take the patient to the Publishing Director after giving IV hydration 2. . 3. Prior ostial and mid circumflex stent appeared to be patent. Mid LAD lesion looked more hazy calcified and 70-75% stenotic IFR was performed which was significant in ischemic range of 0.75. It was treated with drug-eluting stent. Diagonal branch showed 80% stenosis this time it was treated with balloon angioplasty. Distal circumflex was also treated with balloon angioplasty.Upon engagement of the left main and during process of balloon angioplasty and stent placement into LAD hyportension was noted patient was started on Levophed. Patient also started going into pulmonary edema for which IV Lasix was given. At the end of the case patient tolerated procedure well without any complication BiPAP was also used. With angiographic result with ERVIN-3 flow was achieved and LAD diagonal and circumflex. RCA was free of disease. 4. . 5. There is significant coronary artery disease with four vessel disease. 6. Distal Left Anterior Descending was treated with a Drug Eluting Stent. 7. Distal Circumflex was treated with a Balloon. 8. 1st Diagonal was treated with a Balloon. 9. 2nd Diagonal was treated with a Balloon. Recommendations * Continue current medical management and risk factor modification. Interventional RX Recommendation: PCI w/o planned CABG Diagnostic RX Recommendation: PCI w/o planned CABG Pressures Phase:Rest AO : 92 / 67 ( 80 ) @ 12:51:00 PM 119 / 78 ( 137 ) @ 12:52:00 PM 108 / 72 ( 88 ) @ 12:52:00 PM 208 / 75 ( 96 ) @ 12:53:00 PM 118 / 75 ( 96 ) @ 12:54:00 PM / ( -30 ) @ 1:33:00 PM / ( -30 ) @ 1:36:00 PM / ( -29 ) @ 2:01:00 PM Clinical Evaluation EBL: 5mL-10mL Procedural Details Pre-Procedure Time Out. Identified patient by full name and date of as verbalized by the patient/guarantor. Does the consent match the physician's order: Yes. Accurate & Complete Informed Consent: Yes. Inpatient/Outpatient History & Physical on Chart: Yes. If H&P is completed, is and addenduem needed: No; If yes, is the addendum complete: N/A. Visualize and Verify Site with Patient/Guarantor: N/A. Relevant Radiology Images available: Yes. Pre-op teaching completed and patient verbalized understanding. The risks, benefits, and alternatives of sedation and/or procedure were discussed by physician. The patient agrees to continue. Procedure started. [facility] Clinical Fraility Score: 4: Vulnerable. Publishing Director Indications: ACS > 24 hours. Chest Pain Symptom Assessment: Typical Angina Symptoms. Correct patient, site and procedure confirmed by cath team. Current diagnosis: NSTEMI. PERRLA. Strong, equal hand package liner bilaterally. Lungs clear x 5 lobes. A 20 gauge IV was started in the left anticubital using aseptic technique. IV Fluids: 0.9% NaCl at KVO. 0 mL infused prior to laboratory cureman. Pre Procedural Pulses: bilateral radial was 3+. Pre Procedural Pulses: bilateral dorsalis pedis was Doppled. Pre Procedural Pulses: bilateral posterior tibial was Doppled. Oxygen started at 3liters/min via nasal canula. right radial was prepped with chloroprep then draped in the usual sterile fashion. right groin was prepped with chloroprep then draped in the usual sterile fashion. Physician notified. Baseline sample Acquired. HR: 67 BPM. Patient's family updated at start of procedure. Physician arrived. Audrey Caruso is circulating RN. Physician scrubbed in. Immediate Pre-Procedure Time Out. Correct Patient: Yes; Correct Procedure: Yes; Correct Site: Yes; Correct Patient Position: Yes; Correct Supplies: Yes; Dried Flammable Prep: Yes; Blood Products Available: N/A;. Lidocaine 1% infiltrated to the right groin. Arterial access obtained with micropuncture set. A Right femoral angiogram was performed to determine safe placement of closure device. A 5 andorran JR4 catheter in over wire. Multiple views taken of right coronary artery. Catheter removed over the exchange wire. Inventory is CRD 6 FR XB 3.5 GUIDE. 6 andorran XB 3.5 guide catheter was inserted over the wire. Guide seated in the LCS. Dr Westbrook scubbed in to assist with procedure with Dr Ferrell. Physician review of films. Performing IFR measurement of mid lad lesion. OMNIWIRE IFR wire inserted. NORMALIZED outside of guide and advanced across the lesion. IFR SPOT MEASUREMENT 0.74. IFR PB IS 0.75. IFR wire removed. Inventory is TR 180cm Runthrough NS extra floppy 0.014 wire. Runthrough guidewire was advanced through the guide catheter to lesion in the mid LAD. Guidewire advanced across lesion. Inflation number : 1 A AB MINI TREK 2.00X15 RX BALLOON was prepped and advanced across the Mid LAD , then inflated to 16 NA for 0:18 seconds. Results checked. Balloon out over the wire. Inflation Number : 2 A BERNARDA Parra ALBERT 2.5X18 EZIO -Lot Number# [id number] EXP 01/04/24 was prepped and advanced across the Mid LAD. The stent was deployed at 18 NA for 0:22 seconds. Fluid bolus per MD to increase blood pressure. Initiated by Vilma Caruso RN. Results checked. Stent balloon out over the wire. ACT drawn. Results 246 seconds. Therapeutic limits - pre-heparin administration 90-150 seconds and monitoring heparin during a vascular procedure >250 seconds. Results checked. Attempting to redirect the Runthrough down the diagonal. Runthrough wire removed. Guide catheter removed. 6 andorran XB 3.5SH guide catheter was inserted over the wire. Guide seated in the LCS. Angiography performed. Runthrough guidewire was advanced through the guide catheter to lesion in the diaganol. A new 2.0x15 trek balloon used to cross diagonal lesion. Inflation number : 1 A AB MINI TREK 2.00X15 RX BALLOON was prepped and advanced across the 1st Diag , then inflated to 16 NA for 0:12 seconds. Inflation number: 2 The AB MINI TREK 2.00X15 RX BALLOON was reinflated across the 1st Diag, to 16 NA for 0:09 seconds. Angiography performed. Physician review of films. Balloon out over the wire. Angiography performed. Physician review of films. Runthrough wire redirected down the Lcx. Inflation number: 1 The AB MINI TREK 2.00X15 RX BALLOON was reinflated across the Dist CX, to 14 NA for 0:13 seconds. Inflation number: 2 The AB MINI TREK 2.00X15 RX BALLOON was reinflated across the Dist CX, to 12 NA for 0:07 seconds. Inflation number: 3 The AB MINI TREK 2.00X15 RX BALLOON was reinflated across the Dist CX, to 12 NA for 0:20 seconds. Balloon out over the wire. Results checked. Wire out. Angiography performed. Guide catheter out over the wire. Physican review of films. Perclose placed without complications. No signs or symptoms of hematoma noted. Sterile dressing applied per usual sterile fashion. A Perclose ([employer]) was successful obtaining hemostatsis at the Right Femoral artery insertion site. Post Procedure: Pulses reassessed and unchanged. PERRLA. Strong, equal hand package liner bilaterally. No VTE prophylaxis required. Fluoro: 18:00. Contrast type used: Visipaque 320 mgI/mL, 500 mL bottle. Visipaque 260 ml. Medication's Wasted: Heparin = 2000 units. Total IV fluids: 305 mL. Medication's Wasted: Versed = 1 mg. Medication's Wasted: Fentanyl = 50 mcg. Post-op diagnosis: SEVERE LAD, DIAGONAL, LEFT CIRCUMFLEX STENOSIS Multivessel coronary artery disease. Complications: None. Estimated blood loss: 5mL-10mL. Responsiveness - Normal response to verbal stimuli; alert and oriented, PERRLA. Airway - Unaffected, no intervention required; spontaneous ventilation. Circulation: W/N/L, pulses unchanged. Nausea/Vomiting: No. Perclose lot #[id number] exp 07/16/22. Physician scrubbed out. Switched to 100% NRB after trial to simple mask innefective. Coughing and deep breathing encouraged. MD at bedside. Awaiting ICU assignment from boarding house cook since patient is on Levophed drip. Monitoring continued. Family updated. A 16Fr marte catheter was inserted without resistance maintaining sterile technique. Bag to gravity with clear urine returning. RT arrived to place on bipap. Report called to Joana GODINEZ. Room availaible in 10 to 15 minutes estimated. Patient room now ready. Procedure completed. Patient transferred by bed to ICU. Vital chart was stopped. Access Site Site: Right Femoral artery Sheath Size: 6 Fr Hemostasis Method: Perclose ([employer]) Hemostasis Success: Successful Procedure Medications Start: 2:03 PM Stop: 2:03 PM Medication: Versed Amount: 1 mg Route: I.V. Start: 2:03 PM Stop: 2:03 PM Medication: Fentanyl Amount: 50 mcg Route: I.V. Start: 2:33 PM Stop: 2:33 PM Medication: Heparin Amount: 5000 units Route: I.V. Start: 2:35 PM Stop: 2:35 PM Medication: 0.9% Saline Amount: 160 ml Route: I.V. bolus Start: 2:38 PM Stop: 2:38 PM Medication: Heparin Amount: 3000 units Route: I.V. Start: 2:52 PM Stop: 2:52 PM Medication: Levophed (norepinephrine) Amount: 4 mcg/min Route: I.V. drip Start: 2:56 PM Stop: 2:56 PM Medication: Heparin Amount: 1000 units Route: I.V. Start: 2:57 PM Stop: 2:57 PM Medication: Levophed (norepinephrine) Amount: 8 mcg/min Route: I.V. drip Start: 3:03 PM Stop: 3:03 PM Medication: Levophed (norepinephrine) Amount: 10 mcg/min Route: I.V. drip Start: 3:10 PM Stop: 3:10 PM Medication: Levophed (norepinephrine) Amount: 12 mcg/min Route: I.V. drip Start: 3:33 PM Stop: 3:33 PM Medication: Lasix (furosemide) Amount: 40 mg Route: I.V. Start: 3:48 PM Stop: 3:48 PM Medication: Levophed (norepinephrine) Amount: 10 mcg/min Route: I.V. drip Start: 3:53 PM Stop: 3:53 PM Medication: Levophed (norepinephrine) Amount: 8 mcg/min Route: I.V. drip Start: 3:58 PM Stop: 3:58 PM Medication: Levophed (norepinephrine) Amount: 6 mcg/min Route: I.V. drip Start: 4:01 PM Stop: 4:01 PM Medication: Lasix (furosemide) Amount: 40 mg Route: I.V. I, the attending physician, have reviewed and verified all procedure medications. Yes, all medications given per verbal order History/Risk Factors Hypertension: Yes Dyslipidemia: Yes Peripheral Arterial Disease (PAD): No Myocardial Infarction (VA): No Obesity: No Renal Disease: No Prior Interventions PCI: Yes CABG: No Valve Surgery: No Date of PCI: 02/26/2021 Report Signatures Finalized by Semaj Ferrell MD on 03/08/2021 08:50 PM
--- NOTE | 2021-03-06 14:03 | P.HPUD_ITS ---
Surgery/Procedure H&P Update DATE OF PROCEDURE: March 06, 2021 DATE H&P PERFORMED: 03/04/21 H&P UPDATE INFORMATION: I have reviewed H&P completed within last 30 days, I have examined patient prior to procedure and No changes to prior documentation PREOP DIAGNOSIS: Non-ST elevation MD PLANNED PROCEDURE: Operation Date: 03/05/21 12:00 Proposed Procedures p Cardiac Catheterization(Left) - Semaj Ferrell MD PATIENT REASSESSED PRIOR TO SEDATION, WITH NO CHANGE NOTED: Yes PHYSICAL EXAM: alert, oriented x 3 and clear to auscultation bilaterally AIRWAY EVAL/ANESTHESIA PLAN: ASA II and Risks, benefits & alternatives of sedation and/or procedure discussed ADDITIONAL INFORMATION: Patient require patient has been explained all risk benefit and alternative for the procedure. He understand risk of contrast- induced nephropathy including temporary permanent dialysis major minor bleed stroke pseudoaneurysm vascular injury urgent emergent bypass or vascular surgery he is a candidate for DAPT already on Plavix. Patient agreed to it along with his family including and son. He would like to proceed with it.
--- NOTE | 2021-03-06 15:52 | PM.PN ---
Subjective Subjective: Interval history: Patient underwent coronary angiogram, mid LAD showed significant lesion by IFR which was treated with drug-eluting stent. Small caliber moderate size diagonal branch had significant 85% long stenosis treated with balloon angioplasty, distal circumflex is moderate caliber vessel which has long tandem stenosis treated with balloon angioplasty, prior ostial and mid circumflex stents appear to be patent. Patient has small diffusely diseased ramus intermedius which may be causing him leak of troponin but it is not amenable to PCI. 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 Levophed was started. He was given IV fluid. He also went into pulmonary edema. For which he was given 80 mg of IV Lasix. Currently he is on nonrebreather with sat 98%. He is on Levophed 6 mics. Currently is stable. He will be transferred to ICU, right groin closed with Perclose without significant hematoma. Medications: Reviewed: Yes Vitals/I&O/Wt Last Vital Signs Temp 97.2 F L 03/05/21 14:38 Pulse 68 03/06/21 08:00 Resp 14 03/06/21 08:00 BP 151/70 03/06/21 08:00 Pulse Ox 94 03/06/21 08:00 Physical Exam Narrative: EXAM NARRATIVE: GENERAL: Patient is alert, awake and oriented x3 but coughing with pulmonary edema NECK: No jugular vein distension. HEENT: No cyanosis. No icterus. No pallor. HEART: Irregular S1 and S2. No murmur, rub or gallop. LUNGS: Clear to auscultate bilaterally. ABDOMEN: Soft, nontender and nondistended. Positive bowel sounds. No guarding, rebound or tenderness. CENTRAL NERVOUS SYSTEM: Grossly nonfocal. EXTREMITIES: Lower extremities without edema bilaterally. Const: COMMON NORMALS: alert Resp: COMMON NORMALS: clear to auscultation bilaterally AUSCULTATION: clear to auscultation bilaterally Neuro: SENSORIUM/ORIENTATION: Yes alert Data : 03/05/21 04:20 03/06/21 03:11 A&P Assessment and plan (1) NSTEMI (non-ST elevated myocardial infarction): Patient says that he cannot live like this he continues to have chest pain despite of optimization of medicine and recent PCI, patient has multivessel disease he is not a good candidate for surgery, patient has suffered another non-ST elevation NC most likely ramus intermedius which is small vessel and not amenable to intervention. Since he continues to have off-and-on chest pains, we will proceed with left heart cath to assess mid LAD and diagonal lesion for possible intervention. Patient has been explained all risk benefit and knowledge of the for the procedure he understand risk for contrast-induced nephropathy leading to temporary or permanent dialysis. He understand risk for bleeding. Understand risk for stroke major minor bleed. He says he would like to proceed with it we will ask for left heart cath in the morning. Until then we will continue to treat him medically. Currently stable continue current regimen. Left heart cath is put on hold due to worsening of creatinine. Explained to patient and his at bedside both are in agreement. Patient underwent coronary angiogram, mid LAD showed significant lesion by IFR 0.81 which was treated with drug-eluting stent. Small caliber moderate size diagonal branch had significant 85% long stenosis treated with balloon angioplasty, distal circumflex is moderate caliber vessel which has long tandem stenosis treated with balloon angioplasty, prior ostial and mid circumflex stents appear to be patent. Patient has small diffusely diseased ramus intermedius which may be causing him leak of troponin but it is not amenable to PCI. 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 Levophed was started. He was given IV fluid. He also went into pulmonary edema. For which he was given 80 mg of IV Lasix. Currently he is on nonrebreather with sat 98%. He is on Levophed 6 mics. Currently is stable. He will be transferred to ICU, right groin closed with Perclose without significant hematoma. Status: Acute (2) CKD (chronic kidney disease): Patient is volume overloaded now due to IV hydration and during PCI with ischemia he had pulmonary edema at this point I will diurese him we will watch the kidney function with labs in the morning. Status: Acute Qualifiers: Chronic kidney disease stage: stage 3 (moderate) Chronic kidney disease stage 3 subtype: stage 3b (GFR 30-44) Qualified Code(s): N18.32 - Chronic kidney disease, stage 3b (3) Ischemic cardiomyopathy: High risk PCI was performed to the mid LAD with drug-eluting stent, balloon angioplasty of the diagonal and distal circumflex was performed. Patient became hypotensive during the case was given on Levophed now it is getting better with titrating it down. He is stable otherwise Status: Inactive (4) Essential hypertension: Currently normotensive on Levophed Status: Acute (5) Atrial fibrillation: Rate controlled given heparin during the case therefore apixaban is on hold today. Status: Acute Qualifiers: Atrial fibrillation type: persistent (not longstanding) Qualified Code(s): I48.19 - Other persistent atrial fibrillation Attestations Medical Necessity Statement*: Patient require continuation hospital he will be transferred to ICU for post PCI care and for hypotension being on pressor Coding Level of Care Code Established Pt Acute Shared Services Representative for g Fwd Patient Type Established History Comprehensive Exam Comprehensive Medical Decision Making High Complexity Diagnoses NSTEMI (non-ST elevated myocardial infarction) I21.4 CKD (chronic kidney disease) N18.32 Chronic kidney disease stage: stage 3 (moderate) Chronic kidney disease stage 3 subtype: stage 3b (GFR 30-44) Ischemic cardiomyopathy I25.5 Essential hypertension I10 Atrial fibrillation I48.19 Atrial fibrillation type: persistent (not longstanding)
--- NOTE | 2021-03-06 17:47 | PC.NURSE ---
To floor Pt brought to floor by CCL nurses. Pt is alert. Pt is on 10L NC and satting in the high 90's. Dressing to right femoral access where sheath was pulled at 1550 does have some oozing which has been circled. Pulses are palpable. Pt is off levophed with BP 150/65. Temp is 96.8. Pritchard catheter is in place and draining. He does have audible crackles to lower bases. Lasix given in CCL and pt has had 750 out emptied in unit. Pt has been oriented to room with call light within reach.
[2021-03-06] MEDS: atorvastatin 40 mg Tablet PO (20:45)
[2021-03-06] MEDS: gabapentin 100 mg Capsule PO (20:45)
[2021-03-06] MEDS: alum-mag-hydroxide-sime 30 mL UDC PO (22:02)
[2021-03-07] VITALS (12 sets, daily range): BP systolic 109–151; BP diastolic 52–72; PULSE 60–125; RESP 16–20; TEMP 36.2–36.7; O2SAT 89–96
--- NOTE | 2021-03-07 04:05 | PC.NURSE ---
Patient resting in bed overnight. V/S stable.
[2021-03-07 05:26] LABS: Basophils % 0.3 %; Eosinophils % 0.3 %; Hemoglobin 12.6 g/dL (11.7-16.6); Lymphocytes % 7.3 %; Mean Corpuscular HGB Conc 34.1 g/dL (30.0-36.0); Mean Corpuscular Hemoglobin 31.3 pg (28.0-34.0); Mean Corpuscular Volume 91.8 fl (80-94); Mean Platelet Volume 11.7 fL (7.4-10.4); Monocytes # 1.2 10^3/uL (0.2-0.9); Monocytes % 9.1 %; Neutrophils # 10.81 10^3/uL (1.8-7.7); Neutrophils % 82.6 %; Nucleated Red Blood Cells % 0 %; Platelet Count 207 10^3/cmm (130-400); Red Blood Count 4.03 10^6/uL (4.1-5.3); Red Cell Distribution Width 13.5 % (12.1-15.1); White Blood Count 13.1 10^3/uL (4.0-10.0)
[2021-03-07 05:45] LABS: Anion Gap 20.5 (5-19); Blood Urea Nitrogen 22 mg/dL (8-23); Carbon Dioxide 21 mmol/L (22-29); Chloride 101 mmol/L (98-107); Glucose 106 mg/dL (65-115); Osmolality Calculated 292 mOsm/kg (285-295); Potassium 3.5 mmol/L (3.5-5.1); Sodium 139 mmol/L (136-145)
[2021-03-07] MEDS: pantoprazole DR 40 mg Tablet PO (08:20)
[2021-03-07] MEDS: clopidogrel 75 mg Tablet PO (08:20)
[2021-03-07] MEDS: aspirin 81 mg EC Tablet PO (08:20)
[2021-03-07] MEDS: ranolazine (12HR) 500 mg Tablet PO ×2 (08:20→17:20)
--- NOTE | 2021-03-07 09:11 | PC.CHAP ---
Pastoral Care Encounter/Spiritual Assessment Type of Contact [] Declined cloth colorer visit [] Patient/Family/Request visit [] Outpatient visit [] Follow-up visit [] Physician referral [] Code/Alert [x] Routine visit [] Staff referral [] Actively dying [x] Patient sleeping [] Family support [] [] Out of room [] Palliative care [] [] Receiving care in room [] Pre-surgical visit [] Trauma [] Long length of stay [x] ICU visit [] Other: Relational/Emotional Strength [] Patient feels connected with others/family/visitors/staff [] Distress [] Loneliness/isolation [] Abandonment Spirituality of Patient [] Person of Radha [] Attends [employer] of their Radha [] Believes in Prayer [] Reads Bible or Amish materials [] There are Spiritual issues to be addressed Olericulture Teacher Interventions [x] Prayer [] Active listening [] Non-anxious presence [] Spiritual/emotional support [] Crisis/trauma care [] Spiritual counseling [] Bereavement support [] Provided bereavement packet [] Provided Bible/devotional materials [] Provided toy/stuffed animal, coloring book to patient or family member [] Provided Communion [] Anointing/[place] [] Salvation [x] Completed spiritual assessment [] Other: Impact on Illness or Injury [] Angry [] Fearful [] Anxious [] Often cries [] Exhaustion [] Unable to work [] Unable to attend mandaeism [] Unable to walk/stand [] Unable to read [] Unable to drive [] Unable to eat/drink [] Unable to sleep [] Unable to be with family [] Patient intubated [] Other: Summary Time spent with patient
[2021-03-07] MEDS: metoprolol tartrate 25 mg Tablet PO ×2 (10:08→17:20)
--- NOTE | 2021-03-07 11:17 | PC.SOCIAL ---
IMM update IMM updated with patient. Verbalized an understanding. Copy Pg 2 provided. Initialled, dated, timed, and placed in chart.
--- NOTE | 2021-03-07 14:22 | PC.NURSE ---
Report Report given to Ashley on First Floor.
--- NOTE | 2021-03-07 15:33 | PC.NURSE ---
Patient arrived to floor. VS are stable. Right groin looks good, no hematoma present from [facility] 03/06. Patient has at bedside. Both have been oriented to room and use of call pitts. Nurse will continue to monitor.
--- NOTE | 2021-03-07 17:32 | P.PN_ITS ---
Subjective Subjective: Interval history: No overnight event, patient was taken off Levophed he diuresed well he is feeling much better sitting on the chair. Vitals are stable. Medications: Reviewed: Yes Vitals/I&O/Wt Last Vital Signs Temp 97.5 F L 03/07/21 15:29 Pulse 60 03/07/21 16:15 Resp 16 03/07/21 16:15 BP 110/72 03/07/21 16:15 Pulse Ox 94 03/07/21 16:15 03/07/21 03/07/21 03/07/21 06:59 14:59 22:59 Output Total 2700 / 3450 Balance -2700 / -3450 Physical Exam Narrative: EXAM NARRATIVE: GENERAL: Patient is alert, awake and oriented x3 but coughing with pulmonary edema NECK: No jugular vein distension. HEENT: No cyanosis. No icterus. No pallor. HEART: Irregular S1 and S2. No murmur, rub or gallop. LUNGS: Clear to auscultate bilaterally. ABDOMEN: Soft, nontender and nondistended. Positive bowel sounds. No guarding, rebound or tenderness. CENTRAL NERVOUS SYSTEM: Grossly nonfocal. EXTREMITIES: Lower extremities without edema bilaterally. Const: COMMON NORMALS: alert Resp: COMMON NORMALS: clear to auscultation bilaterally AUSCULTATION: clear to auscultation bilaterally Neuro: SENSORIUM/ORIENTATION: Yes alert Data : 03/07/21 04:16 03/07/21 04:16 A&P Assessment and plan (1) NSTEMI (non-ST elevated myocardial infarction): Patient says that he cannot live like this he continues to have chest pain despite of optimization of medicine and recent PCI, patient has multivessel disease he is not a good candidate for surgery, patient has suffered another non-ST elevation MN most likely ramus intermedius which is small vessel and not amenable to intervention. Since he continues to have off-and-on chest pains, we will proceed with left heart cath to assess mid LAD and diagonal lesion for possible intervention. Patient has been explained all risk benefit and knowledge of the for the procedure he understand risk for contrast-induced nephropathy leading to temporary or permanent dialysis. He understand risk for bleeding. Understand risk for stroke major minor bleed. He says he would like to proceed with it we will ask for left heart cath in the morning. Until then we will continue to treat him medically. Currently stable continue current regimen. Left heart cath is put on hold due to worsening of creatinine. Explained to patient and his at bedside both are in agreement. Patient underwent coronary angiogram, mid LAD showed significant lesion by IFR 0.81 which was treated with drug-eluting stent. Small caliber moderate size diagonal branch had significant 85% long stenosis treated with balloon angioplasty, distal circumflex is moderate caliber vessel which has long tandem stenosis treated with balloon angioplasty, prior ostial and mid circumflex stents appear to be patent. Patient has small diffusely diseased ramus intermedius which may be causing him leak of troponin but it is not amenable to PCI. 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 Levophed was started. He was given IV fluid. He also went into pulmonary edema. For which he was given 80 mg of IV Lasix. Currently he is on nonrebreather with sat 98%. He is on Levophed 6 mics. Currently is stable. He will be transferred to ICU, right groin closed with Perclose without significant hematoma. Status post PCI to mid LAD balloon angioplasty of diagonal and distal circumflex. Continue DAPT continue atorvastatin, will start patient on beta- sharri. Continue to monitor Status: Acute (2) CKD (chronic kidney disease): Continue to monitor for contrast-induced nephropathy. Status: Acute Qualifiers: Chronic kidney disease stage: stage 3 (moderate) Chronic kidney disease stage 3 subtype: stage 3b (GFR 30-44) Qualified Code(s): N18.32 - Chronic kidney disease, stage 3b (3) Ischemic cardiomyopathy: High risk PCI was performed to the mid LAD with drug-eluting stent, balloon angioplasty of the diagonal and distal circumflex was performed. Patient became hypotensive during the case was given on Levophed now it is getting better with titrating it down. He is stable otherwise Stable doing fine from a cardiovascular perspective now. Status: Inactive (4) Essential hypertension: Patient is normotensive off of the Levophed. Status: Acute (5) Atrial fibrillation: Rate controlled continue apixaban Status: Acute Qualifiers: Atrial fibrillation type: persistent (not longstanding) Qualified Code(s): I48.19 - Other persistent atrial fibrillation Attestations Medical Necessity Statement*: Patient require continuation hospitalization for baseline care patient can move out of ICU. Coding Level of Care Code Acute Diesel Engine Mechanic for Chg Fwd Diagnoses NSTEMI (non-ST elevated myocardial infarction) I21.4 CKD (chronic kidney disease) N18.32 Chronic kidney disease stage: stage 3 (moderate) Chronic kidney disease stage 3 subtype: stage 3b (GFR 30-44) Ischemic cardiomyopathy I25.5 Essential hypertension I10 Atrial fibrillation I48.19 Atrial fibrillation type: persistent (not longstanding)
[2021-03-07] MEDS: atorvastatin 40 mg Tablet PO (19:33)
[2021-03-07] MEDS: gabapentin 100 mg Capsule PO (19:33)
[2021-03-07] MEDS: FUROsemide 10 mg/mL SDV 4mL 40 MG IVP (19:33)
--- NOTE | 2021-03-07 20:11 | P.PN_ITS ---
Subjective Subjective: Interval history: A. fib with RVR this morning. Denies chest pain. Denies cough. Vitals/I&O/Wt Last Vital Signs Temp 97.4 F L 03/07/21 19:42 Pulse 65 03/07/21 19:42 Resp 16 03/07/21 19:42 BP 117/59 03/07/21 19:42 Pulse Ox 96 03/07/21 19:42 03/07/21 03/07/21 03/07/21 06:59 14:59 22:59 Output Total 2700 / 3450 Balance -2700 / -3450 Physical Exam Const: COMMON NORMALS: no acute distress and patient oriented x3 GENERAL APPEARANCE: frail appearing OTHER: CAHUILLA HENMT: COMMON NORMALS: oropharynx normal Neck/C-Spine: COMMON NORMALS: no JVD Resp: COMMON NORMALS: normal respiratory effort and clear to auscultation bilaterally AUSCULTATION: clear to auscultation bilaterally Cardio: COMMON NORMALS: no JVD, regular rhythm, S1 normal heart sound present, S2 normal heart sound present and No murmurs present (Cardio) RHYTHM: regular rhythm HEART SOUNDS: S1 normal heart sound present and S2 normal heart sound present GI: COMMON NORMALS: Normal to inspection, nondistended, normoactive bowel soun ds present, Soft to palpation and non-tender PALPATION: Yes Soft to palpation Extremity: COMMON NORMALS: no joint enlargement and no pedal edema OTHER: R groin bloody strikethrough on dressing, no pulsatile mass, no ecchymosis around dressing Neuro: COMMON NORMALS: patient oriented x3 and moves all extremities Skin: COMMON NORMALS: no rashes or lesions noted GENERAL SKIN EXAM: no rashes or lesions noted Data : 03/07/21 04:16 03/07/21 04:16 A&P Assessment and plan (1) Atrial fibrillation: A. fib with RVR: Resumed metoprolol. Blood pressure is good. Status: Acute Qualifiers: Atrial fibrillation type: persistent (not longstanding) Qualified Code(s): I48.19 - Other persistent atrial fibrillation (2) Hypoxia: IVF discontinued. Received Lasix dose today. Wean off oxygen as tolerating. Chest x-ray in the morning. Status: Acute (3) Chest pain: Status: Acute Qualifiers: Chest pain type: unspecified Qualified Code(s): R07.9 - Chest pain, unspecified (4) NSTEMI (non-ST elevated myocardial infarction): Status post PCI to mid LAD balloon angioplasty of diagonal and distal circumflex. Continue dual antiplatelets, statin, beta-sharri Transient Levophed support last night, weaned off overnight. Status: Acute (5) CKD (chronic kidney disease): Status: Acute Qualifiers: Chronic kidney disease stage: stage 3 (moderate) Chronic kidney disease stage 3 subtype: stage 3b (GFR 30-44) Qualified Code(s): N18.32 - Chronic kidney disease, stage 3b (6) Dyslipidemia: Status: Acute (7) Essential hypertension: Status: Acute (8) Anticoagulation adequate with anticoagulant therapy: Status: Acute Additional A&P Information Attestations Medical Necessity Statement*: Continue admission for optimization of control of A. fib with RVR, assess management of hypoxia requiring oxygen support, cont inued care after NSTEMI, PCI, and gentleman with underlying CKD. Coding Level of Care Code Acute Neurosurgical Nurse for [facility] Fwd Diagnoses Atrial fibrillation I48.19 Atrial fibrillation type: persistent (not longstanding) Hypoxia R09.02 Chest pain R07.9 Chest pain type: unspecified NSTEMI (non-ST elevated myocardial infarction) I21.4 CKD (chronic kidney disease) N18.32 Chronic kidney disease stage: stage 3 (moderate) Chronic kidney disease stage 3 subtype: stage 3b (GFR 30-44) Dyslipidemia E78.5 Essential hypertension I10 Anticoagulation adequate with anticoagulant therapy Z79.01
[2021-03-08 03:58] VITALS: BP 116/56; PULSE 60; RESP 16; TEMP 36.8; O2SAT 96
[2021-03-08 04:09] LABS: Basophils % 0.4 %; Eosinophils # 0.3 10^3/uL (0.0-0.8); Eosinophils % 2.7 %; Hematocrit 34.9 % (42.0-52.0); Hemoglobin 11.9 g/dL (11.7-16.6); Lymphocytes # 1.9 10^3/uL (0.8-4.8); Lymphocytes % 17.6 %; Mean Corpuscular HGB Conc 34.1 g/dL (30.0-36.0); Mean Corpuscular Hemoglobin 31.2 pg (28.0-34.0); Mean Corpuscular Volume 91.6 fl (80-94); Mean Platelet Volume 11.4 fL (7.4-10.4); Monocytes # 1.1 10^3/uL (0.2-0.9); Monocytes % 10.7 %; Neutrophils # 7.22 10^3/uL (1.8-7.7); Neutrophils % 68.2 %; Nucleated Red Blood Cells % 0 %; Platelet Count 200 10^3/cmm (130-400); Red Blood Count 3.81 10^6/uL (4.1-5.3); Red Cell Distribution Width 13.3 % (12.1-15.1); White Blood Count 10.6 10^3/uL (4.0-10.0)
[2021-03-08 04:21] VITALS: PULSE 60
[2021-03-08 04:30] LABS: Anion Gap 15.7 (5-19); Blood Urea Nitrogen 28 mg/dL (8-23); Calcium 8.2 mg/dL (8.5-10.5); Carbon Dioxide 27 mmol/L (22-29); Chloride 99 mmol/L (98-107); Glucose 97 mg/dL (65-115); Osmolality Calculated 291 mOsm/kg (285-295); Potassium 3.7 mmol/L (3.5-5.1); Sodium 138 mmol/L (136-145)
--- NOTE | 2021-03-08 06:00 | XR_ITS ---
WS: [id number] Exam: XR chest 1V portable [id number] Date/Time of Exam: 03/08/2021 6:43 AM Reason For Exam: Hypoxia Comparison 03/04/2021. Bilateral interstitial infiltrates have improved since the prior study. Heart size is normal. No pleu ral effusions or pneumothorax. There may be some widening of the superior mediastinum on the right. R egional bony structures are intact. Recommendations: A detailed PA and lateral chest radiograph might be considered for follow-up as soon as the patient's condition will allow. XR/XR chest 1V portable [id number] IMPRESSION: 1. Improved bilateral pulmonary infiltrates since prior study. 2. Questionable low widening of superior mediastinum on the right.
[2021-03-08] MEDS: metoprolol tartrate 25 mg Tablet PO (08:27)
[2021-03-08] MEDS: aspirin 81 mg EC Tablet PO (08:27)
[2021-03-08] MEDS: clopidogrel 75 mg Tablet PO (08:27)
[2021-03-08] MEDS: ranolazine (12HR) 500 mg Tablet PO (08:27)
[2021-03-08] MEDS: pantoprazole DR 40 mg Tablet PO (08:27)
[2021-03-08 12:31] VITALS: BP 116/52; PULSE 61; RESP 17; O2SAT 90
[2021-03-08 12:43] VITALS: BP 116/52; PULSE 61; RESP 17; TEMP 36.9; O2SAT 95
--- NOTE | 2021-03-08 13:18 | PM.DCS ---
Discharge Providers Date of Admission: 03/04/21 03:20 Date of Discharge: March 08, 2021 Attending Provider at Admission: Jarocho Tejeda MD Attending Provider at Discharge: Miguel Mirza Primary Care Provider: Nikita Mosher MD Diagnoses at Discharge Discharge Diagnosis (1) Atrial fibrillation: Status: Acute Qualifiers: Atrial fibrillation type: persistent (not longstanding) Qualified Code(s): I48.19 - Other persistent atrial fibrillation (2) Hypoxia: Status: Acute (3) Chest pain: Status: Acute Qualifiers: Chest pain type: unspecified Qualified Code(s): R07.9 - Chest pain, unspecified (4) NSTEMI (non-ST elevated myocardial infarction): Status: Acute (5) CKD (chronic kidney disease): Status: Acute Qualifiers: Chronic kidney disease stage: stage 3 (moderate) Chronic kidney disease stage 3 subtype: stage 3b (GFR 30-44) Qualified Code(s): N18.32 - Chronic kidney disease, stage 3b (6) Dyslipidemia: Status: Acute (7) Essential hypertension: Status: Acute (8) Anticoagulation adequate with anticoagulant therapy: Status: Acute Reason for Visit Reason for Visit: chest pains Hospital Course Hospital Course Pleasant 80-year-old gentleman with history of CAD, SLE, ILD, CKD, atrial fibrillation on chronic anticoagulation, presenting with chest pain to the [facility] to have NSTEMI, underwent coronary angiography after transient IV hydration with finding of mid LAD significant lesion by FFR, 0.81, treated with drug-eluting stent, small caliber moderate-sized diagonal branch had significant 85% long stenosis treated with balloon angioplasty, distal circumflex moderate caliber vessel which has long tandem stenosis, treated with balloon angioplasty, prior ostial and mid circumflex stents appear to be patent. Has small diffusely decreased ramus intermedius possibly causing legal troponin but not amenable to PCI. 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 Transiently supported with Levophed, metoprolol held, received IV hydration, but complicated with pulmonary edema, received Lasix. Transiently requiring nonrebreather support. Weaned off Levophed. Blood pressures improved. Hypoxia gradually improving, down to 3 L nasal cannula oxygen currently. Not fluid overloaded. With underlying ILD likely complicating hypoxia. No sign of pneumonia. Improved bilateral pulmonary infiltrates/edema on chest x-ray. He has been feeling well. Denies any complaints. No chest pain or pressure. No trouble breathing. Transient A. fib with RVR improved after resumption of metoprolol. Mild worsening in renal function, creatinine up to 1.9. Please reassess renal function at next visit, BMP is to be requested by cardiology for Sunday. TTE with low normal left ventricular size and systolic function, EF 50%. Moderate aortic valve calcification, mild AVR, moderately thickened mitral valve, mild MVR. No pericardial effusion. Pulmonary pressure within normal limits. Right atrial pressure around 5 mmHg. No significant change from prior echo. Continue to optimize risk factors of CAD. Please revisit with patient and family regarding concern raised in the past regarding ATTR. This was found in his brother. If concern, consider additional work-up with assessment for light chain disease, consideration for referral for additional imaging, possibly MRI, other work-up as appropriate. He is asked to also resume follow-up with pulmonology given noted hypoxia, previously persistent groundglass opacities and ILD. Physical Exam Narrative: EXAM NARRATIVE: at bedside Const: COMMON NORMALS: no acute distress, patient oriented x3 and alert GENERAL APPEARANCE: cooperative and comfortable ORIENTATION/CONSCIOUSNESS: Yes awake OTHER: [place] BAND HENMT: COMMON NORMALS: oropharynx normal Neck/C-Spine: COMMON NORMALS: no JVD Resp: COMMON NORMALS: normal respiratory effort and clear to auscultation bilaterally AUSCULTATION: clear to auscultation bilaterally Cardio: COMMON NORMALS: no JVD, regular rhythm, S1 normal heart sound present, S2 normal heart sound present and No murmurs present (Cardio) RHYTHM: regular rhythm HEART SOUNDS: S1 normal heart sound present and S2 normal heart sound present GI: COMMON NORMALS: Normal to inspection, nondistended, normoactive bowel sounds present, Soft to palpation and non-tender PALPATION: Yes Soft to palpation Extremity: COMMON NORMALS: no joint enlargement and no pedal edema OTHER: R groin bloody strikethrough on dressing, no pulsatile mass, no ecchymosis around dressing Neuro: COMMON NORMALS: patient oriented x3 and moves all extremities SENSORIUM/ORIENTATION: Yes alert Skin: COMMON NORMALS: no rashes or lesions noted GENERAL SKIN EXAM: no rashes or lesions noted Discharge Data Data Completed and Pending: Completed Studies During Hospitalization Category Date Time Status XR chest 1V joel ble [id number] Routine Exams 03/08/21 06:00 Completed XR chest 1V joel ble [id number] Stat Exams 03/04/21 02:00 Completed Pending at discharge Category Date Time 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 Routin e Exams 03/06/21 13:39 Taken Basic Metabolic P lynette AM LABS Lab 03/09/21 04:00 Ordered Basic Metabolic P lynette AM LABS Lab 03/10/21 04:00 Ordered Complete Blood Co unt w/Auto AM LABS Lab 03/09/21 04:00 Ordered Complete Blood Co unt w/Auto AM LABS Lab 03/10/21 04:00 Ordered Labs from last 24 hours 03/08/21 03/08/21 03:30 03:30 WBC 10.6 H RBC 3.81 L Hgb 11.9 Hct 34.9 L MCV 91.6 MCH 31.2 MCHC 34.1 RDW 13.3 Plt Count 200 MPV 11.4 H Neut % (Auto) 68.2 Lymph % (Auto) 17.6 [place] % (Auto) 10.7 Eos % (Auto) 2.7 Baso % (Auto) 0.4 Neut # (Auto) 7.22 Lymph # (Auto) 1.9 [place] # (Auto) 1.1 H Eos # (Auto) 0.3 Baso # (Auto) 0.0 Nucleated RBC % (a uto) 0 Nucleated RBCs # 0.0 Sodium 138 Potassium 3.7 Chloride 99 Carbon Dioxide 27 Anion Gap 15.7 BUN 28 H Creatinine 1.9 H GFR Calculation Not Reportable Glucose 97 Calculated Osmolal ity 291 Calcium 8.2 L Vitals: Last Vital Signs Temp 98.5 F 03/08/21 12:43 Pulse 61 03/08/21 12:43 Resp 17 03/08/21 12:43 BP 116/52 03/08/21 12:43 Pulse Ox 95 03/08/21 12:43 Discharge Plan Discharge Patient Disposition: Home Condition: Stable Prescriptions: Continued pantoprazole 40 mg tablet,delayed release (DR/EC) 40 mg PO BID RF: 0 Eliquis 5 mg tablet 5 mg PO BID RF: 0 saw palmetto 450 mg capsule 450 mg PO BID RF: 0 multivitamin Tablet 1 tab PO DAILY RF: 0 atorvastatin 40 mg tablet 40 mg PO BEDTIME RF: 0 acetaminophen 500 mg Tablet 500 mg PO TID RF: 0 magnesium 250 mg Tablet 250 mg PO DAILY RF: 0 nitroglycerin 0.4 mg tablet, sublingual 0.4 mg sublingual Q5M PRN (Reason: chest pains) RF: 0 gabapentin 100 mg Capsule 100 mg PO BEDTIME RF: 0 polyethylene glycol 3350 [Miralax] 17 gram Powder In Packet 17 g PO DAILY RF: 0 clopidogrel 75 mg Tablet 75 mg PO DAILY Qty: 90 RF: 4 ranolazine 500 mg Tablet Extended Release 12 Hr 500 mg PO BID Qty: 60 RF: 3 isosorbide mononitrate 120 mg tablet extended release 24 hr 60 mg PO DAILY Qty: 30 RF: 0 metoprolol tartrate 25 mg Tablet 25 mg PO BID Qty: 90 RF: 4 vitamin B complex Tablet 1 tab PO DAILY RF: 0 Flonase 50 mcg/actuation [place],Suspension 1 spray INTRANASAL BEDTIME RF: 0 Discharge Orders: Discharge Order (Routine); Ordered 03/08/21 Ordered By: Miguel Mirza Ref[facility] They plan on completing your initial visit on 03/10/2021 unless a spot opens up sooner. ) Semaj Ferrell MD [Physician] - 6 Weeks Tabitha Jones FNP [Nurse Practitioner] - 1 week Nikita Mosher MD [Primary Care Provider] - 4-7 days Discharge Diet: Cardiac Discharge Activity: Increase activity as tolerated and Oxygen as instructed Patient Instructions: Clopidogrel (By mouth), Apixaban (By mouth), Coronary Artery Disease (GEN), Coronary Angioplasty (DC) Activity Restrictions/Additional Instructions: You need to have BMP and CBC on Sunday Please discuss with your primary doctor your concern regarding whether ATTR can be underlying condition. Discussed consideration of blood test which can detect immunoglobulin light chain. Discuss referral for additional testing with your primary provider and master at arms, consideration of cardiac MRI, consideration of biopsy. Continue optimization of risk factors of coronary artery disease, including hypertension, dyslipidemia, follow-up on chronic kidney disease. Continue oxygen as per home oxygen evaluation. Please discuss with your primary doctor chronically appearing groundglass opacities on your chest imaging on [address] scans. Please follow-up with your lung specialist regarding interstitial lung disease. Discharge Attestations Time Spent in Discharge Care*: greater than 30 min Quality Metrics Clinical Quality Measures During this hospital stay, did patient experience: AMI Clinical Trial Participant: No Contraindication to aspirin (AMI): On Warfarin or Pradaxa at discharge Contraindication to statin: Statin prescribed Contraindication to PCI: PCI performed Coding Level of Care Code Acute Chg FW DC note Diagnoses Atrial fibrillation I48.19 Atrial fibrillation type: persistent (not longstanding) Hypoxia R09.02 Chest pain R07.9 Chest pain type: unspecified NSTEMI (non-ST elevated myocardial infarction) I21.4 CKD (chronic kidney disease) N18.32 Chronic kidney disease stage: stage 3 (moderate) Chronic kidney disease stage 3 subtype: stage 3b (GFR 30-44) Dyslipidemia E78.5 Essential hypertension I10 Anticoagulation adequate with anticoagulant therapy Z79.01
--- NOTE | 2021-03-08 14:07 | P.PN_ITS ---
Subjective Subjective: Interval history: Patient in sinus rhythm denies any chest pain creatinine has slightly worsened due to diuresis and partly contrast-induced nephropathy. He would like to go home. Medications: Reviewed: Yes Vitals/I&O/Wt Last Vital Signs Temp 98.5 F 03/08/21 12:43 Pulse 61 03/08/21 12:43 Resp 17 03/08/21 12:43 BP 116/52 03/08/21 12:43 Pulse Ox 95 03/08/21 12:43 03/07/21 03/08/21 03/08/21 22:59 06:59 14:59 Output Total 1500 / 1500 Balance -1500 / -1500 Physical Exam Narrative: EXAM NARRATIVE: GENERAL: Patient is alert, awake and oriented x3 NECK: No jugular vein distension. HEENT: No cyanosis. No icterus. No pallor. HEART: Regular S1 and S2. No murmur, rub or gallop. LUNGS: Clear to auscultate bilaterally. ABDOMEN: Soft, nontender and nondistended. Positive bowel sounds. No guarding, rebound or tenderness. CENTRAL NERVOUS SYSTEM: Grossly nonfocal. EXTREMITIES: Lower extremities without edema bilaterally. Const: COMMON NORMALS: alert Resp: COMMON NORMALS: clear to auscultation bilaterally AUSCULTATION: clear to auscultation bilaterally Neuro: SENSORIUM/ORIENTATION: Yes alert Data : 03/08/21 03:30 03/08/21 03:30 A&P Assessment and plan (1) NSTEMI (non-ST elevated myocardial infarction): Patient says that he cannot live like this he continues to have chest pain despite of optimization of medicine and recent PCI, patient has multivessel disease he is not a good candidate for surgery, patient has suffered another non-ST elevation MS most likely ramus intermedius which is small vessel and not amenable to intervention. Since he continues to have off-and-on chest pains, we will proceed with left heart cath to assess mid LAD and diagonal lesion for possible intervention. Patient has been explained all risk benefit and knowledge of the for the procedure he understand risk for contrast-induced nephropathy leading to temporary or permanent dialysis. He understand risk for bleeding. Understand risk for stroke major minor bleed. He says he would like to proceed with it we will ask for left heart cath in the morning. Until then we will continue to treat him medically. Currently stable continue current regimen. Left heart cath is put on hold due to worsening of creatinine. Explained to patient and his at bedside both are in agreement. Patient underwent coronary angiogram, mid LAD showed significant lesion by IFR 0.81 which was treated with drug-eluting stent. Small caliber moderate size d iagonal branch had significant 85% long stenosis treated with balloon angioplasty, distal circumflex is moderate caliber vessel which has long tandem stenosis treated with balloon angioplasty, prior ostial and mid circumflex stents appear to be patent. Patient has small diffusely diseased ramus i ntermedius which may be causing him leak of troponin but it is not amenable to PCI. 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 Levophed was started. He was given IV fluid. He also went into pulmonary edema. For which he was given 80 mg of IV Lasix. Currently he is on nonrebreather with sat 98%. He is on Levophed 6 mics. Currently is stable. He will be transferred to ICU, right groin closed with Perclose without significant hematoma. Status post PCI to mid LAD balloon angioplasty of diagonal and distal circumflex. Continue DAPT continue atorvastatin, will start patient on beta- sharri. Continue to monitor Continue to find time gone disease perspective, status post PCI to mid LAD balloon angioplasty to guide and balloon angioplasty to distal circumflex. Continue DAPT Status: Acute (2) CKD (chronic kidney disease): Worsening of renal function could be due to diuresis since patient was in pulmonary edema. Also contrast-induced nephropathy is a strong consideration patient would like to go home we will check in couple of days again the creatinine further plan will be devised as per progress of patient.. Status: Acute Qualifiers: Chronic kidney disease stage: stage 3 (moderate) Chronic kidney disease stage 3 subtype: stage 3b (GFR 30-44) Qualified Code(s): N18.32 - Chronic kidney disease, stage 3b (3) Ischemic cardiomyopathy: High risk PCI was performed to the mid LAD with drug-eluting stent, balloon angioplasty of the diagonal and distal circumflex was performed. Patient became hypotensive during the case was given on Levophed now it is getting better with titrating it down. He is stable otherwise Stable doing fine from a cardiovascular perspective now. Appear to be stable continue current regimen continue to follow up with cardiology in 7 days Status: Inactive (4) Essential hypertension: Normotensive. Status: Acute (5) Atrial fibrillation: Patient is in sinus rhythm. Status: Acute Qualifiers: Atrial fibrillation type: persistent (not longstanding) Qualified Code(s): I48.19 - Other persistent atrial fibrillation Attestations Medical Necessity Statement*: Patient require continuation hospitalization for above defined care. Coding Level of Care Code Established Pt Acute Rn Document Improvement for g Fwd Patient Type Established History Detailed Exam Detailed Medical Decision Making Moderate Complexity Diagnoses NSTEMI (non-ST elevated myocardial infarction) I21.4 CKD (chronic kidney disease) N18.32 Chronic kidney disease stage: stage 3 (moderate) Chronic kidney disease stage 3 subtype: stage 3b (GFR 30-44) Ischemic cardiomyopathy I25.5 Essential hypertension I10 Atrial fibrillation I48.19 Atrial fibrillation type: persistent (not longstanding)
[2021-03-08 15:01] VITALS: BP 116/52; PULSE 75; RESP 18; TEMP 37.2; O2SAT 95
[2021-03-08 15:05] VITALS: BP 116/52; PULSE 75; RESP 18; TEMP 37.2; O2SAT 95
--- NOTE | 2021-03-08 15:09 | PC.NURSE ---
Pritchard removed, no issues. Education provided, no questions or concerns. VS stable upon departure.
== END 2021-03-08 15:10 | disposition home health service (06) | DRG 247 ==
LOC: ER 07:26 → ER IP 08:49 → CSU 13:55 → ICU 03-06 16:04 → CSU 03-07 14:42
PROVIDERS: Internal Medicine Cardiovascular Disease; Student in an Organized Health Care Education/Training Program; Admitting Provider Student in an Organized Health Care Education/Training Program; Emergency Provider Emergency Medicine; PCP Family Medicine; Visit Provider Internal Medicine
DX: I22.2 Subsequent non-ST elevation (NSTEMI) myocardial infarction (principal); I48.19 Other persistent atrial fibrillation; J84.9 Interstitial pulmonary disease, unspecified; I21.4 Non-ST elevation (NSTEMI) myocardial infarction; I12.9 Hypertensive chronic kidney disease with stage 1 through stage 4 chronic kidney disease, or unspecified chronic kidney disease; N18.32 Chronic kidney disease, stage 3b; E78.5 Hyperlipidemia, unspecified; K21.9 Gastro-esophageal reflux disease without esophagitis; Z85.828 Personal history of other malignant neoplasm of skin; G62.9 Polyneuropathy, unspecified; M32.9 Systemic lupus erythematosus, unspecified; Z86.73 Personal history of transient ischemic attack (TIA), and cerebral infarction without residual deficits; Z87.891 Personal history of nicotine dependence; I25.5 Ischemic cardiomyopathy; D63.1 Anemia in chronic kidney disease; Z86.16 Personal history of COVID-19; M48.02 Spinal stenosis, cervical region; Z79.01 Long term (current) use of anticoagulants; Z79.02 Long term (current) use of antithrombotics/antiplatelets
CPT/HCPCS: 36415; 71045; 80048; 80053; 83880; 84484; 85025; 85347; 85610; 87426; 92921; 93005; 93571; 94660; 96372; 96374; 99285; C1725; C1769; C1874; C1887; C1894; C9600; J1644; J1650; J1940; J2250; J2270; J2405; J3010; J3490; J7030; Q9967

== ENCOUNTER 2021-03-11 13:21 | Outpatient (CLI) | payer OTHER, MEDICARE, SELFPAY ==
[2021-03-11 14:07] LABS: Basophils % 0.5 %; Eosinophils # 0.3 10^3/uL (0.0-0.8); Eosinophils % 3.9 %; Hematocrit 34.3 % (42.0-52.0); Hemoglobin 11.4 g/dL (11.7-16.6); Lymphocytes # 1.2 10^3/uL (0.8-4.8); Lymphocytes % 13.8 %; Mean Corpuscular HGB Conc 33.2 g/dL (30.0-36.0); Mean Corpuscular Hemoglobin 31.6 pg (28.0-34.0); Mean Platelet Volume 10.8 fL (7.4-10.4); Monocytes # 0.8 10^3/uL (0.2-0.9); Monocytes % 8.7 %; Neutrophils # 6.26 10^3/uL (1.8-7.7); Neutrophils % 72.6 %; Nucleated Red Blood Cells % 0 %; Platelet Count 265 10^3/cmm (130-400); Red Blood Count 3.61 10^6/uL (4.1-5.3); Red Cell Distribution Width 13.7 % (12.1-15.1); White Blood Count 8.6 10^3/uL (4.0-10.0)
[2021-03-11 14:27] LABS: Anion Gap 17.7 (5-19); Blood Urea Nitrogen 20 mg/dL (8-23); Carbon Dioxide 21 mmol/L (22-29); Chloride 100 mmol/L (98-107); Glucose 93 mg/dL (65-115); Osmolality Calculated 282 mOsm/kg (285-295); Potassium 3.7 mmol/L (3.5-5.1); Sodium 135 mmol/L (136-145)
== END 2021-03-11 13:22 | disposition home or self-care (01) ==
PROVIDERS: PCP Family Medicine; Visit Provider Internal Medicine
DX: I25.10 Atherosclerotic heart disease of native coronary artery without angina pectoris (principal); N28.9 Disorder of kidney and ureter, unspecified
CPT/HCPCS: 80048; 85025

== ENCOUNTER 2021-03-16 11:53 | Emergency (ER) | payer OTHER, MEDICARE, SELFPAY ==
[2021-03-16 12:07] VITALS: BP 121/68; PULSE 78; RESP 22; TEMP 36.6; O2SAT 96; BMI 23.9
[2021-03-16 12:25] VITALS: BP 123/87; PULSE 72; RESP 15; O2SAT 97
--- NOTE | 2021-03-16 12:50 | ECG_ITS ---
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 Measurements Intervals [place] Rate: 78 P: LA: QRS: 81 QRSD: 121 T: 97 QT: 426 QTc: 488 Interpretive Statements ATRIAL FIBRILLATION MODERATE INTRAVENTRICULAR CONDUCTION DELAY [110+ ms QRS DURATION] ST DEVIATION AND MODERATE T-WAVE ABNORMALITY, CONSIDER INFERIOR ISCHEMIA [-0.1+ mV T-WAVE IN II/aVF] Compared to ECG 03/04/2021 08:20:31 Intraventricular conduction delay now present T-wave abnormality now present Possible ischemia now present Ventricular-paced complex(es) or rhythm no longer present Electronically Signed On 03-16-2021 20:45:21 PRUNE WASHER by Ce Huerta M.D. [id number]
--- NOTE | 2021-03-16 13:24 | ED_ITS ---
HPI - Arrhythmia/Palpitations General: Chief Complaint: Arrhythmia/Palpitations Stated Complaint: AFIB EPISODE Time Seen by Provider: 03/16/21 12:21 History of Present Illness: HPI narrative: Patient comes in complaining of a rapid heart rate. States he has a history of A. fib. States that he has not missed any of his medications, but but this morning noticed his heart rate was too fast. States that by the time he got here did resolved. States he has a history of coronary artery disease and had a stent placed recently. He is currently asymptomatic. He denies any cold symptoms including no fever, cough, congestion, vomiting, diarrhea. Associated symptoms: Deny anxiety, nausea or vomiting Review of Systems Const: Denies: fever(s) or body aches Eyes: Denies: change in vision or blurry vision ENMT: Denies: throat pain or odynophagia Card: Reports: palpitations; Denies: chest pain Resp: Denies: dyspnea or productive cough GI: Denies: abdominal pain, nausea or vomiting : Denies: flank pain or dysuria Musc: Denies: neck pain or back pain Skin/Breast: Denies: rash or pruritus Neuro: Denies: headache(s) or numbness in extremities Psych: Denies: anxiety or change in appetite Endo: Denies: polyuria or excessive sweating PFSH ED PFSH: Medical History (Updated 03/16/21 @ 14:50 by Gaurav Cifuentes MD) Anticoagulation adequate with anticoagulant therapy Atherosclerotic heart disease of [place] coronary artery with unstable angina pectoris Atrial fibrillation CAD (coronary artery disease) Cervical stenosis of spinal canal Cervical stenosis of spinal canal CKD (chronic kidney disease) COVID-19 resolved, Mar 2020 Dyslipidemia Essential hypertension GERD (gastroesophageal reflux disease) Ground glass opacity present on imaging of lung History of nonmelanoma skin cancer Inflammatory arthritis Ischemic cardiomyopathy NSIP (nonspecific interstitial pneumonia) NSTEMI (non-ST elevated myocardial infarction) Peripheral neuropathy SLE (systemic lupus erythematosus related syndrome) Sleep apnea TIA (transient ischemic attack) Surgical History History of coronary angiogram History of neck surgery History of shoulder surgery History of surgery on wrist Family History Other CAD (coronary artery disease) Diabetes Hypertension Denies family history of Rheumatoid arthritis Lupus Lung disease Cancer Stroke Social History Smoking and tobacco status: former smoker Quit status (tobacco): has quit using tobacco Year quit tobacco: 1959 Former quit date comment: Hx of 1 PPD x 10 Years Second hand smoke exposure: No Smoking risk assessment/counseling performed?: Yes Alcohol intake: never Counseling given: No Counseling given: No Lives independently: Yes Household members: spouse Marital status: service: Yes Current occupational status: retired Pets and animals: No History of recent travel: No Current gender identity: Male Physical Exam Const: COMMON NORMALS: no acute distress, patient oriented x3, healthy celestina earing and alert HENMT: COMMON NORMALS: normocephalic and atraumatic HEAD & SCALP: normocephalic and atraumatic Eye: COMMON NORMALS: Equal, round and reactive pupils present and EOMs intact bilaterally PUPIL: Yes Equal, round and reactive pupils present Neck/C-Spine: COMMON NORMALS: full ROM and supple Resp: COMMON NORMALS: normal respiratory effort, No retractions and No use of accessory muscles Cardio: COMMON NORMALS: regular rate and regular rhythm RATE: regular rate RHYTHM: regular rhythm GI: COMMON NORMALS: Normal to inspection, nondistended, normoactive bowel sounds present, Soft to palpation and non-tender PALPATION: Yes Soft to palpation Back/Pelvis: COMMON NORMALS: thoracic and lumbar spine normal to inspection and no thoracic nor lumbar tenderness Extremity: COMMON NORMALS: normal to inspection and full ROM Neuro: COMMON NORMALS: patient oriented x3 SENSORIUM/ORIENTATION: Yes alert Psych: COMMON NORMALS: mental status grossly normal and cooperative Skin: COMMON NORMALS: no rashes or lesions noted and no wounds GENERAL SKIN EXAM: no rashes or lesions noted Course ED course: Patient comes in complaining of a rapid heart rate. States he has a history of A. fib. States that he has not missed any of his medications, but but this morning noticed his heart rate was too fast. States that by the time he got here did resolved. States he has a history of coronary artery disease and had a stent placed recently. Stat EKG shows atrial fibrillation with a rate of 78 bpm. He is asymptomatic at this time. Will check labs, and reassess. Reevaluation(s): Reevaluation #1: On reassessment I talked to the patient about the test results. His troponin was elevated, however it is significantly less than what it was a couple weeks ago. He continues to be asymptomatic. We talked him at length about symptoms which prompt immediate return to the emergency department. Will discharge at this time. Vital Signs: Vital signs: Vital Signs Temperature 97.8 F 03/16/21 12:07 Pulse Rate 59 L 03/16/21 14:17 Respiratory Rate 20 H 03/16/21 14:17 Blood Pressure 123/87 03/16/21 14:17 Pulse Oximetry 97 03/16/21 14:17 MDM - Arrhythmia/Palpitations Lab Data: Labs: Lab Results 03/16/21 03/16/21 03/16/21 13:27 13:27 13:27 WBC 7.5 10^3/uL 10^3/ uL (4.0-10.0) RBC 3.60 10^6/uL L 10 ^6/uL (4.1-5.3) Hgb 11.2 g/dL L g/dL (11.7-16.6) Hct 34.0 % L % (42.0-52.0) MCV 94.4 fl H fl (80-94) MCH 31.1 pg pg (28.0-34.0) MCHC 32.9 g/dL g/dL (30.0-36.0) RDW 14.5 % % (12.1-15.1) Plt Count 313 10^3/cmm 10^3 /cmm (130-400) MPV 10.7 fL H fL (7.4-10.4) Neut % (Auto) 74.8 % % Lymph % (Auto) 11.8 % % [place] % (Auto) 10.0 % % Eos % (Auto) 2.5 % % Baso % (Auto) 0.5 % % Neut # (Auto) 5.59 10^3/uL 10^3 /uL (1.8-7.7) Lymph # (Auto) 0.9 10^3/uL 10^3/ uL (0.8-4.8) [place] # (Auto) 0.8 10^3/uL 10^3/ uL (0.2-0.9) Eos # (Auto) 0.2 10^3/uL 10^3/ uL (0.0-0.8) Baso # (Auto) 0.0 10^3/uL 10^3/ uL (0.0-0.1) Nucleated RBC % (a uto) 0 % % Nucleated RBCs # 0.0 /100WBC /100W BC Sodium 137 mmol/L mmol/L (136-145) Potassium 4.0 mmol/L mmol/L (3.5-5.1) Chloride 105 mmol/L mmol/L (98-107) Carbon Dioxide 20 mmol/L L mmol/ L (22-29) Anion Gap 16.0 (5-19) BUN 19 mg/dL mg/dL (8-23) Creatinine 1.4 mg/dL H mg/dL (0.7-1.2) GFR Calculation Not Reportable Glucose 132 mg/dL H mg/dL (65-115) Calculated Osmolal ity 288 mOsm/kg mOsm/ kg (285-295) Calcium 8.1 mg/dL L mg/dL (8.5-10.5) Total Bilirubin 0.7 mg/dL mg/dL (0.15-1.2) AST 13 U/L U/L (0-40) ALT 11 U/L U/L (0-41) Alkaline Phosphata se 66 IU/L IU/L (40-130) Troponin T Baselin e 225 ng/L H* ng/L (0-15) Total Protein 6.8 g/dL g/dL (6.6-8.7) Albumin 3.5 g/dL g/dL (3.5-5.2) Globulin 3.3 g/dL g/dL (1.3-4.6) Discharge Plan Discharge Patient Disposition: Home Clinical Impression: Palpitations Condition: Stable Prescriptions: No Action pantoprazole 40 mg tablet,delayed release (DR/EC) 40 mg PO BID RF: 0 Eliquis 5 mg tablet 5 mg PO BID RF: 0 saw palmetto 450 mg capsule 450 mg PO BID RF: 0 multivitamin Tablet 1 tab PO DAILY RF: 0 atorvastatin 40 mg tablet 40 mg PO BEDTIME RF: 0 acetaminophen 500 mg Tablet 500 mg PO TID PRN (Reason: Pain) RF: 0 magnesium 250 mg Tablet 250 mg PO DAILY RF: 0 nitroglycerin 0.4 mg tablet, sublingual 0.4 mg sublingual Q5M PRN (Reason: chest pains) RF: 0 gabapentin 100 mg Capsule 100 mg PO BEDTIME RF: 0 polyethylene glycol 3350 [Miralax] 17 gram Powder In Packet 17 g PO DAILY RF: 0 clopidogrel 75 mg Tablet 75 mg PO DAILY Qty: 90 RF: 4 ranolazine 500 mg Tablet Extended Release 12 Hr 500 mg PO BID Qty: 60 RF: 3 metoprolol tartrate 25 mg Tablet 25 mg PO BID Qty: 90 RF: 4 vitamin B complex Tablet 1 tab PO DAILY RF: 0 fluticasone propionate 50 mcg/actuation [place],Suspension 1 spray INTRANASAL BEDTIME RF: 0 amoxicillin-pot clavulanate 875-125 mg tablet 1 tab PO BID RF: 0 isosorbide mononitrate 120 mg tablet extended release 24 hr 60 mg PO BID RF: 0 Discharge Orders: Discharge ED (Routine); Ordered 03/16/21 Ordered By: Gaurav Cifuentes Referrals: Nikita Mosher MD [Primary Care Provider] - Activity Restrictions/Additional Instructions: Return to the emergency department for chest pain, difficulty breathing, or if your heart rate is too high. Coding Level of Care Code ED Chocolate Packer for Chg Fwd Exam Comprehensive
[2021-03-16 13:32] LABS: Basophils % 0.5 %; Eosinophils # 0.2 10^3/uL (0.0-0.8); Eosinophils % 2.5 %; Hemoglobin 11.2 g/dL (11.7-16.6); Lymphocytes # 0.9 10^3/uL (0.8-4.8); Lymphocytes % 11.8 %; Mean Corpuscular HGB Conc 32.9 g/dL (30.0-36.0); Mean Corpuscular Hemoglobin 31.1 pg (28.0-34.0); Mean Corpuscular Volume 94.4 fl (80-94); Mean Platelet Volume 10.7 fL (7.4-10.4); Monocytes # 0.8 10^3/uL (0.2-0.9); Neutrophils # 5.59 10^3/uL (1.8-7.7); Neutrophils % 74.8 %; Nucleated Red Blood Cells % 0 %; Platelet Count 313 10^3/cmm (130-400); Red Cell Distribution Width 14.5 % (12.1-15.1); White Blood Count 7.5 10^3/uL (4.0-10.0)
[2021-03-16 13:43] VITALS: BP 123/87; PULSE 56; RESP 17; O2SAT 95
[2021-03-16 13:51] LABS: Alanine Aminotransferase 11 U/L (0-41); Albumin Level 3.5 g/dL (3.5-5.2); Alkaline Phosphatase 66 IU/L (40-130); Aspartate Amino Transferase 13 U/L (0-40); Blood Urea Nitrogen 19 mg/dL (8-23); Calcium 8.1 mg/dL (8.5-10.5); Carbon Dioxide 20 mmol/L (22-29); Chloride 105 mmol/L (98-107); Globulin 3.3 g/dL (1.3-4.6); Glucose 132 mg/dL (65-115); Osmolality Calculated 288 mOsm/kg (285-295); Sodium 137 mmol/L (136-145); Total Bilirubin 0.7 mg/dL (0.15-1.2); Total Protein 6.8 g/dL (6.6-8.7)
[2021-03-16 13:55] LABS: Creatinine Clr Calc Pharmacy 38.7723
[2021-03-16 14:17] VITALS: BP 123/87; PULSE 59; RESP 20; O2SAT 97
[2021-03-16 14:18] LABS: Troponin(5th) Baseline 225 ng/L (0-15)
[2021-03-16 15:14] VITALS: BP 123/81; PULSE 85; O2SAT 96
== END 2021-03-16 15:14 | disposition home or self-care (01) ==
PROVIDERS: Emergency Provider Emergency Medicine; PCP Family Medicine
DX: R00.2 Palpitations (principal); Z79.01 Long term (current) use of anticoagulants; Z79.02 Long term (current) use of antithrombotics/antiplatelets; I25.10 Atherosclerotic heart disease of native coronary artery without angina pectoris; E78.5 Hyperlipidemia, unspecified; I25.2 Old myocardial infarction; M32.9 Systemic lupus erythematosus, unspecified; Z86.73 Personal history of transient ischemic attack (TIA), and cerebral infarction without residual deficits; Z87.891 Personal history of nicotine dependence
CPT/HCPCS: 80053; 84484; 85025; 93005; 99284

== ENCOUNTER 2021-03-18 22:56 | Emergency (ER) | payer OTHER, MEDICARE, SELFPAY ==
--- NOTE | 2021-03-18 23:14 | ECG_ITS ---
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 Measurements Intervals [place] Rate: 92 P: IN: QRS: 45 QRSD: 124 T: 84 QT: 411 QTc: 509 Interpretive Statements ATRIAL FIBRILLATION MODERATE INTRAVENTRICULAR CONDUCTION DELAY [110+ ms QRS DURATION] MARKED ST DEPRESSION, CONSIDER SUBENDOCARDIAL INJURY [0.2+ mV ST DEPRESSION] Compared to ECG 03/16/2021 12:04:27 ST (T wave) deviation now present T-wave abnormality no longer present Possible ischemia no longer present Electronically Signed On 03-19-2021 4:46:47 [employer] by Garcia Chaparro M.D. [id number]
[2021-03-18 23:15] VITALS: BP 135/77; PULSE 93; RESP 16; TEMP 37.1; O2SAT 97
--- NOTE | 2021-03-18 23:20 | XRR_ITS ---
PROCEDURE INFORMATION: Exam: XR Chest Exam date and time: 03/18/2021 11:20 PM Age: 80 years old Clinical indication: Chest pressure; Prior surgery; Surgery type: Coronary stents. ; Patient HX: Chest pain with tachycardia. History of afib. ; Additional info: Cp TECHNIQUE: Imaging protocol: XR of the chest. Views: 1 view. COMPARISON: CR XR chest 1V portable [id number] 03/08/2021 6:47 AM FINDINGS: Lungs: No consolidative pulmonary infiltrates are noted. Pleural spaces: No pleural effusion. No pneumothorax. Heart/Mediastinum: No cardiomegaly. Vasculature: The thoracic aorta is mildly atherosclerotic. Bones/joints: Unremarkable. XR/XR chest 1V portable [id number] IMPRESSION: No acute abnormality demonstrated.
[2021-03-18 23:38] VITALS: BP 131/84; PULSE 89; RESP 18; O2SAT 93
[2021-03-18 23:53] LABS: Basophils % 0.5 %; Eosinophils # 0.2 10^3/uL (0.0-0.8); Eosinophils % 2.6 %; Hematocrit 35.9 % (42.0-52.0); Hemoglobin 11.9 g/dL (11.7-16.6); Lymphocytes # 1.1 10^3/uL (0.8-4.8); Lymphocytes % 13.9 %; Mean Corpuscular HGB Conc 33.1 g/dL (30.0-36.0); Mean Corpuscular Hemoglobin 31.2 pg (28.0-34.0); Mean Corpuscular Volume 94.2 fl (80-94); Mean Platelet Volume 10.8 fL (7.4-10.4); Monocytes # 0.9 10^3/uL (0.2-0.9); Monocytes % 11.1 %; Neutrophils # 5.59 10^3/uL (1.8-7.7); Neutrophils % 71.5 %; Nucleated Red Blood Cells % 0 %; Platelet Count 305 10^3/cmm (130-400); Red Blood Count 3.81 10^6/uL (4.1-5.3); Red Cell Distribution Width 14.4 % (12.1-15.1); White Blood Count 7.8 10^3/uL (4.0-10.0)
--- NOTE | 2021-03-19 00:01 | ED_ITS ---
Documented by User: NILSA Calle 03/19/21 00:03 HPI - Chest Pain General: Chief Complaint: Chest Pain Stated Complaint: Heartbeat 141 A Fib Time Seen by Provider: 03/18/21 23:19 History of Present Illness: HPI narrative: Patient states he had a twinge in his chest about 1030 tonight he took 2 nitroglycerin and his pain is gone away but his heart rate got above 100 and got up to 140. They were told if his heart rate got above 100 and the need to come to the ER. He says he feels fine now denies any chest pain shortness of breath or other related problems. Has to take nitroglycerin on a fair Osvaldo regular basis for his angina MD complaint: chest pain Pertinent past history: coronary artery disease Onset (ago): minute(s) Timing of current episode: episodic Prior episodes: Yes Onset: during rest (Was watching football game.) Pain location: left chest Pain radiation: none Quality: sharp Relieving factors: nitroglycerin Exacerbating factors: nothing Associated symptoms: Reports no associated symptoms; Deny abdominal pain, dyspnea, fever(s), nausea or vomiting Review of Systems Const: Denies: fever(s), chills or body aches Eyes: Denies: change in vision or blurry vision ENMT: Denies: throat pain or nasal congestion Card: Reports: chest pain; Denies: dyspnea on exertion Resp: Denies: dyspnea, productive cough or non-productive cough GI: Denies: abdominal pain, nausea or vomiting : Denies: difficulty urinating Musc: Denies: extremity pain Skin/Breast: Denies: rash Neuro: Denies: headache(s) Psych: Denies: anxiety or depression Ever/Lymph: Denies: easy bruising [facility] ED PFSH: Medical History (Updated 03/19/21 @ 02:03 by Serenity Sierra MD) Anticoagulation adequate with anticoagulant therapy 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 with unstable angina pectoris Atrial fibrillation CAD (coronary artery disease) Cervical stenosis of spinal canal Cervical stenosis of spinal canal CKD (chronic kidney disease) COVID-19 resolved, Mar 2020 Dyslipidemia Essential hypertension GERD (gastroesophageal reflux disease) Ground glass opacity present on imaging of lung History of nonmelanoma skin cancer Inflammatory arthritis Ischemic cardiomyopathy NSIP (nonspecific interstitial pneumonia) NSTEMI (non-ST elevated myocardial infarction) Peripheral neuropathy SLE (systemic lupus erythematosus related syndrome) Sleep apnea TIA (transient ischemic attack) Surgical History History of coronary angiogram History of neck surgery History of shoulder surgery History of surgery on wrist Family History Other CAD (coronary artery disease) Diabetes Hypertension Denies family history of Rheumatoid arthritis Lupus Lung disease Cancer Stroke Social History Smoking and tobacco status: former smoker Quit status (tobacco): has quit using tobacco Year quit tobacco: 1959 Former quit date comment: Hx of 1 PPD x 10 Years Second hand smoke exposure: No Smoking risk assessment/counseling performed?: Yes Alcohol intake: never Counseling given: No Counseling given: No Lives independently: Yes Household members: spouse Marital status: service: Yes Current occupational status: retired Pets and animals: No History of recent travel: No Current gender identity: Male Physical Exam Const: COMMON NORMALS: no acute distress, average body habitus and patient oriented x3 HENMT: COMMON NORMALS: normocephalic HEAD & SCALP: normal to inspection and normocephalic FACE & SINUS: normal facial exam Eye: COMMON NORMALS: conjunctivae normal GENERAL EYE: appearance normal, both eyes and all related structures CONJUNCTIVA: Yes conjunctivae normal Neck/C-Spine: COMMON NORMALS: no JVD Chest: COMMONS NORMALS: normal inspection of the chest Resp: COMMON NORMALS: normal respiratory effort and clear to auscultation bilaterally AUSCULTATION: clear to auscultation bilaterally Cardio: COMMON NORMALS: no JVD, regular rate and regular rhythm RATE: regular rate RHYTHM: regular rhythm GI: COMMON NORMALS: Normal to inspection, nondistended, normoactive bowel sounds present Extremity: COMMON NORMALS: normal to inspection and full ROM Neuro: COMMON NORMALS: patient oriented x3 Course Vital Signs: Vital signs: Vital Signs Temperature 98.7 F 03/18/21 23:15 Pulse Rate 79 03/19/21 02:02 Respiratory Rate 18 03/19/21 02:02 Blood Pressure 115/70 03/19/21 02:02 Pulse Oximetry 92 03/19/21 02:02 MDM - Chest Pain Lab Data: Labs: Lab Results 03/18/21 03/18/21 03/18/21 23:32 23:32 23:32 WBC 7.8 10^3/uL 10^3/ uL (4.0-10.0) RBC 3.81 10^6/uL L 10 ^6/uL (4.1-5.3) Hgb 11.9 g/dL g/dL (11.7-16.6) Hct 35.9 % L % (42.0-52.0) MCV 94.2 fl H fl (80-94) MCH 31.2 pg pg (28.0-34.0) MCHC 33.1 g/dL g/dL (30.0-36.0) RDW 14.4 % % (12.1-15.1) Plt Count 305 10^3/cmm 10^3 /cmm (130-400) MPV 10.8 fL H fL (7.4-10.4) Neut % (Auto) 71.5 % % Lymph % (Auto) 13.9 % % [place] % (Auto) 11.1 % % Eos % (Auto) 2.6 % % Baso % (Auto) 0.5 % % Neut # (Auto) 5.59 10^3/uL 10^3 /uL (1.8-7.7) Lymph # (Auto) 1.1 10^3/uL 10^3/ uL (0.8-4.8) [place] # (Auto) 0.9 10^3/uL 10^3/ uL (0.2-0.9) Eos # (Auto) 0.2 10^3/uL 10^3/ uL (0.0-0.8) Baso # (Auto) 0.0 10^3/uL 10^3/ uL (0.0-0.1) Nucleated RBC % (a uto) 0 % % Nucleated RBCs # 0.0 /100WBC /100W BC Sodium 137 mmol/L mmol/L (136-145) Potassium 4.2 mmol/L mmol/L (3.5-5.1) Chloride 103 mmol/L mmol/L (98-107) Carbon Dioxide 20 mmol/L L mmol/ L (22-29) Anion Gap 18.2 (5-19) BUN 19 mg/dL mg/dL (8-23) Creatinine 1.6 mg/dL H mg/dL (0.7-1.2) GFR Calculation Not Reportable Glucose 101 mg/dL mg/dL (65-115) Calculated Osmolal ity 286 mOsm/kg mOsm/ kg (285-295) Calcium 8.1 mg/dL L mg/dL (8.5-10.5) Total Bilirubin 0.5 mg/dL mg/dL (0.15-1.2) AST 24 U/L U/L (0-40) ALT 16 U/L U/L (0-41) Alkaline Phosphata se 79 IU/L IU/L (40-130) Troponin T Baselin e 138 ng/L H* ng/L (0-15) Troponin T 120 Min [place] Troponin T Total Protein 7.4 g/dL g/dL (6.6-8.7) Albumin 3.9 g/dL g/dL (3.5-5.2) Globulin 3.5 g/dL g/dL (1.3-4.6) 03/19/21 01:31 WBC RBC Hgb Hct MCV MCH MCHC RDW Plt Count MPV Neut % (Auto) Lymph % (Auto) [place] % (Auto) Eos % (Auto) Baso % (Auto) Neut # (Auto) Lymph # (Auto) [place] # (Auto) Eos # (Auto) Baso # (Auto) Nucleated RBC % (a uto) Nucleated RBCs # Sodium Potassium Chloride Carbon Dioxide Anion Gap BUN Creatinine GFR Calculation Glucose Calculated Osmolal ity Calcium Total Bilirubin AST ALT Alkaline Phosphata se Troponin T Baselin e Troponin T 120 Min [place] 142.9 ng/L H ng/L (0-15) Delta Troponin T 4.9 ABS# ABS# (0-10) Total Protein Albumin Globulin Discharge Plan Discharge Patient Disposition: Home Clinical Impression: Chest pain Condition: Stable Prescriptions: No Action pantoprazole 40 mg tablet,delayed release (DR/EC) 40 mg PO BID RF: 0 Eliquis 5 mg tablet 5 mg PO BID RF: 0 saw palmetto 450 mg capsule 450 mg PO BID RF: 0 multivitamin Tablet 1 tab PO DAILY RF: 0 atorvastatin 40 mg tablet 40 mg PO BEDTIME RF: 0 acetaminophen 500 mg Tablet 500 mg PO TID PRN (Reason: Pain) RF: 0 magnesium 250 mg Tablet 250 mg PO DAILY RF: 0 nitroglycerin 0.4 mg tablet, sublingual 0.4 mg sublingual Q5M PRN (Reason: chest pains) RF: 0 gabapentin 100 mg Capsule 100 mg PO BEDTIME RF: 0 polyethylene glycol 3350 [Miralax] 17 gram Powder In Packet 17 g PO DAILY RF: 0 clopidogrel 75 mg Tablet 75 mg PO DAILY Qty: 90 RF: 4 ranolazine 500 mg Tablet Extended Release 12 Hr 500 mg PO BID Qty: 60 RF: 3 metoprolol tartrate 25 mg Tablet 25 mg PO BID Qty: 90 RF: 4 vitamin B complex Tablet 1 tab PO DAILY RF: 0 fluticasone propionate 50 mcg/actuation [place],Suspension 1 spray INTRANASAL BEDTIME RF: 0 amoxicillin-pot clavulanate 875-125 mg tablet 1 tab PO BID RF: 0 isosorbide mononitrate 120 mg tablet extended release 24 hr 60 mg PO BID RF: 0 Discharge Orders: Discharge ED (Routine); Ordered 03/19/21 Ordered By: Serenity Sierra Referrals: Nikita Mosher MD [Primary Care Provider] - 1-3 days Discharge Diet: Advance as tolerated Discharge Activity: Resume usual activity Patient Instructions: Chest Pain (ED) Coding Level of Care Code ED Head Of Store Operations for Chg Fwd Exam Comprehensive Documented by User: Serenity Sierra MD 03/19/21 02:08 HPI - Chest Pain General: Chief Complaint: Chest Pain Stated Complaint: Heartbeat 141 A Fib Time Seen by Provider: 03/18/21 23:19 [facility] ED PFSH: Medical History (Updated 03/19/21 @ 02:03 by Serenity Sierra MD) Anticoagulation adequate with anticoagulant therapy 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 with unstable angina pectoris Atrial fibrillation CAD (coronary artery disease) Cervical stenosis of spinal canal Cervical stenosis of spinal canal CKD (chronic kidney disease) COVID-19 resolved, Mar 2020 Dyslipidemia Essential hypertension GERD (gastroesophageal reflux disease) Ground glass opacity present on imaging of lung History of nonmelanoma skin cancer Inflammatory arthritis Ischemic cardiomyopathy NSIP (nonspecific interstitial pneumonia) NSTEMI (non-ST elevated myocardial infarction) Peripheral neuropathy SLE (systemic lupus erythematosus related syndrome) Sleep apnea TIA (transient ischemic attack) Surgical History History of coronary angiogram History of neck surgery History of shoulder surgery History of surgery on wrist Family History Other CAD (coronary artery disease) Diabetes Hypertension Denies family history of Rheumatoid arthritis Lupus Lung disease Cancer Stroke Social History Smoking and tobacco status: former smoker Quit status (tobacco): has quit using tobacco Year quit tobacco: 1959 Former quit date comment: Hx of 1 PPD x 10 Years Second hand smoke exposure: No Smoking risk assessment/counseling performed?: Yes Alcohol intake: never Counseling given: No Counseling given: No Lives independently: Yes Household members: spouse Marital status: service: Yes Current occupational status: retired Pets and animals: No History of recent travel: No Current gender identity: Male Course Vital Signs: Vital signs: Vital Signs Temperature 98.7 F 03/18/21 23:15 Pulse Rate 79 03/19/21 02:02 Respiratory Rate 18 03/19/21 02:02 Blood Pressure 115/70 03/19/21 02:02 Pulse Oximetry 92 03/19/21 02:02 MDM - Chest Pain MDM Narrative: Medical decision making narrative: Patient presents here with A. fib along with chest pain his chest pain is resolved his heart rate here has been controlled his repeat troponin is trending down he is stable for discharge is to follow-up with PCP and return if worsening. Lab Data: Labs: Lab Results 03/18/21 03/18/21 03/18/21 23:32 23:32 23:32 WBC 7.8 10^3/uL 10^3/ uL (4.0-10.0) RBC 3.81 10^6/uL L 10 ^6/uL (4.1-5.3) Hgb 11.9 g/dL g/dL (11.7-16.6) Hct 35.9 % L % (42.0-52.0) MCV 94.2 fl H fl (80-94) MCH 31.2 pg pg (28.0-34.0) MCHC 33.1 g/dL g/dL (30.0-36.0) RDW 14.4 % % (12.1-15.1) Plt Count 305 10^3/cmm 10^3 /cmm (130-400) MPV 10.8 fL H fL (7.4-10.4) Neut % (Auto) 71.5 % % Lymph % (Auto) 13.9 % % [place] % (Auto) 11.1 % % Eos % (Auto) 2.6 % % Baso % (Auto) 0.5 % % Neut # (Auto) 5.59 10^3/uL 10^3 /uL (1.8-7.7) Lymph # (Auto) 1.1 10^3/uL 10^3/ uL (0.8-4.8) [place] # (Auto) 0.9 10^3/uL 10^3/ uL (0.2-0.9) Eos # (Auto) 0.2 10^3/uL 10^3/ uL (0.0-0.8) Baso # (Auto) 0.0 10^3/uL 10^3/ uL (0.0-0.1) Nucleated RBC % (a uto) 0 % % Nucleated RBCs # 0.0 /100WBC /100W BC Sodium 137 mmol/L mmol/L (136-145) Potassium 4.2 mmol/L mmol/L (3.5-5.1) Chloride 103 mmol/L mmol/L (98-107) Carbon Dioxide 20 mmol/L L mmol/ L (22-29) Anion Gap 18.2 (5-19) BUN 19 mg/dL mg/dL (8-23) Creatinine 1.6 mg/dL H mg/dL (0.7-1.2) GFR Calculation Not Reportable Glucose 101 mg/dL mg/dL (65-115) Calculated Osmolal ity 286 mOsm/kg mOsm/ kg (285-295) Calcium 8.1 mg/dL L mg/dL (8.5-10.5) Total Bilirubin 0.5 mg/dL mg/dL (0.15-1.2) AST 24 U/L U/L (0-40) ALT 16 U/L U/L (0-41) Alkaline Phosphata se 79 IU/L IU/L (40-130) Troponin T Baselin e 138 ng/L H* ng/L (0-15) Troponin T 120 Min [place] Troponin T Total Protein 7.4 g/dL g/dL (6.6-8.7) Albumin 3.9 g/dL g/dL (3.5-5.2) Globulin 3.5 g/dL g/dL (1.3-4.6) 03/19/21 01:31 WBC RBC Hgb Hct MCV MCH MCHC RDW Plt Count MPV Neut % (Auto) Lymph % (Auto) [place] % (Auto) Eos % (Auto) Baso % (Auto) Neut # (Auto) Lymph # (Auto) [place] # (Auto) Eos # (Auto) Baso # (Auto) Nucleated RBC % (a uto) Nucleated RBCs # Sodium Potassium Chloride Carbon Dioxide Anion Gap BUN Creatinine GFR Calculation Glucose Calculated Osmolal ity Calcium Total Bilirubin AST ALT Alkaline Phosphata se Troponin T Baselin e Troponin T 120 Min [place] 142.9 ng/L H ng/L (0-15) Delta Troponin T 4.9 ABS# ABS# (0-10) Total Protein Albumin Globulin Imaging Data^: CXR: Attestation: I personally reviewed and interpreted this imaging study as follows: Radiologist's impression: [address] [address] XRay Report Signed Patient: Isaac Blanco Unit #: [id number] : 1940 Age/Sex: 80 / M ADM Date: 03/18/21 Loc: ER Room/Bed: Attending Dr: Ordering Provider/Ordering MD: Serenity Sierra MD Date of Service: 03/18/21 Procedure(s): XR chest 1V portable [id number] Accession Number(s): [id number] Report Number: [id number] PROCEDURE INFORMATION: Exam: XR Chest Exam date and time: 03/18/2021 11:20 PM Age: 80 years old Clinical indication: Chest pressure; Prior surgery; Surgery type: Coronary stents. ; Patient HX: Chest pain with tachycardia. History of afib. ; Additional info: Cp TECHNIQUE: Imaging protocol: XR of the chest. Views: 1 view. COMPARISON: CR XR chest 1V portable [id number] 03/08/2021 6:47 AM FINDINGS: Lungs: No consolidative pulmonary infiltrates are noted. Pleural spaces: No pleural effusion. No pneumothorax. Heart/Mediastinum: No cardiomegaly. Vasculature: The thoracic aorta is mildly atherosclerotic. Bones/joints: Unremarkable. XR/XR chest 1V portable [id number] IMPRESSION: No acute abnormality demonstrated. Dictated By: Lazaro Weston MD Signed By: Lazaro Weston MD Signed Date/Time: 03/19/21 0034 DD/ 2320 EKG Data^: EKG 1: Attestation: I personally reviewed and interpreted this EKG as follows: EKG interpretation date: 03/19/21 EKG interpretation time: 00:14 Interpretation: afib hr [address] or t wave abnormalities qr 124 qtc 460 EKG 2: Attestation: I personally reviewed and interpreted this EKG as follows: EKG interpretation date: 03/19/21 EKG interpretation time: 00:49 Interpretation: nsr hr [address] or t wave abnormalities qrs 122 qtc 465 Discharge Plan Discharge Patient Disposition: Home Clinical Impression: Chest pain Condition: Stable Prescriptions: No Action pantoprazole 40 mg tablet,delayed release (DR/EC) 40 mg PO BID RF: 0 Eliquis 5 mg tablet 5 mg PO BID RF: 0 saw palmetto 450 mg capsule 450 mg PO BID RF: 0 multivitamin Tablet 1 tab PO DAILY RF: 0 atorvastatin 40 mg tablet 40 mg PO BEDTIME RF: 0 acetaminophen 500 mg Tablet 500 mg PO TID PRN (Reason: Pain) RF: 0 magnesium 250 mg Tablet 250 mg PO DAILY RF: 0 nitroglycerin 0.4 mg tablet, sublingual 0.4 mg sublingual Q5M PRN (Reason: chest pains) RF: 0 gabapentin 100 mg Capsule 100 mg PO BEDTIME RF: 0 polyethylene glycol 3350 [Miralax] 17 gram Powder In Packet 17 g PO DAILY RF: 0 clopidogrel 75 mg Tablet 75 mg PO DAILY Qty: 90 RF: 4 ranolazine 500 mg Tablet Extended Release 12 Hr 500 mg PO BID Qty: 60 RF: 3 metoprolol tartrate 25 mg Tablet 25 mg PO BID Qty: 90 RF: 4 vitamin B complex Tablet 1 tab PO DAILY RF: 0 fluticasone propionate 50 mcg/actuation [place],Suspension 1 spray INTRANASAL BEDTIME RF: 0 amoxicillin-pot clavulanate 875-125 mg tablet 1 tab PO BID RF: 0 isosorbide mononitrate 120 mg tablet extended release 24 hr 60 mg PO BID RF: 0 Discharge Orders: Discharge ED (Routine); Ordered 03/19/21 Ordered By: Serenity Sierra Referrals: Nikita Mosher MD [Primary Care Provider] - 1-3 days Discharge Diet: Advance as tolerated Discharge Activity: Resume usual activity Patient Instructions: Chest Pain (ED) Coding Level of Care Code ED Head Of Store Operations for Chg Fwd Exam Comprehensive
[2021-03-19 00:07] VITALS: BP 109/69; PULSE 79; RESP 17; O2SAT 91
[2021-03-19 00:37] LABS: Alanine Aminotransferase 16 U/L (0-41); Albumin Level 3.9 g/dL (3.5-5.2); Alkaline Phosphatase 79 IU/L (40-130); Blood Urea Nitrogen 19 mg/dL (8-23); Calcium 8.1 mg/dL (8.5-10.5); Carbon Dioxide 20 mmol/L (22-29); Chloride 103 mmol/L (98-107); Globulin 3.5 g/dL (1.3-4.6); Glucose 101 mg/dL (65-115); Osmolality Calculated 286 mOsm/kg (285-295); Sodium 137 mmol/L (136-145); Total Bilirubin 0.5 mg/dL (0.15-1.2); Total Protein 7.4 g/dL (6.6-8.7)
[2021-03-19 00:45] VITALS: BP 110/55; PULSE 74; RESP 18; O2SAT 92
[2021-03-19 00:59] LABS: Anion Gap 18.2 (5-19); Aspartate Amino Transferase 24 U/L (0-40); Potassium 4.2 mmol/L (3.5-5.1)
[2021-03-19 01:02] VITALS: BP 101/49; PULSE 80; RESP 18; O2SAT 91
[2021-03-19 01:02] LABS: Troponin(5th) Baseline 138 ng/L (0-15)
--- NOTE | 2021-03-19 01:20 | ECG_ITS ---
[facility] Test Date: 2021-03-19 Pat Name: Isaac Blanco Department: Room: Gender: Male Pyrotechnician: : 1940 Requested By: Serenity Sierra Order Number: [id number] Radha MD: Garcia Chaparro M.D. Measurements Intervals [place] Rate: 80 P: 67 [place]: 197 QRS: 33 QRSD: 122 T: 76 QT: 430 QTc: 496 Interpretive Statements ATRIAL FIBRILLATION MODERATE INTRAVENTRICULAR CONDUCTION DELAY [110+ ms QRS DURATION] ST DEVIATION AND MODERATE T-WAVE ABNORMALITY, CONSIDER LATERAL ISCHEMIA [-0.1+ mV T-WAVE IN I/aVL/V5/V6] Compared to ECG 03/19/2021 00:14:21 T-wave abnormality now present Possible ischemia now present ST (T wave) deviation no longer present Electronically Signed On 03-19-2021 4:50:05 FWS FACULTY ASSISTANT by Garcia Chaparro M.D. [id number]
[2021-03-19 01:32] VITALS: BP 102/60; PULSE 81; RESP 18; O2SAT 93
[2021-03-19 01:56] LABS: Troponin 5 2HR Delta 4.9 ABS# (0-10)
[2021-03-19 02:00] LABS: Troponin 5 2HR 142.9 ng/L (0-15)
[2021-03-19 02:02] VITALS: BP 115/70; PULSE 79; RESP 18; O2SAT 92
== END 2021-03-19 02:27 | disposition home or self-care (01) ==
PROVIDERS: Emergency Provider Emergency Medicine; PCP Family Medicine
DX: R07.9 Chest pain, unspecified (principal); I25.10 Atherosclerotic heart disease of native coronary artery without angina pectoris; Z87.891 Personal history of nicotine dependence; I48.91 Unspecified atrial fibrillation; Z79.01 Long term (current) use of anticoagulants; I12.9 Hypertensive chronic kidney disease with stage 1 through stage 4 chronic kidney disease, or unspecified chronic kidney disease; N18.9 Chronic kidney disease, unspecified; E78.5 Hyperlipidemia, unspecified
CPT/HCPCS: 71045; 80053; 84484; 85025; 93005; 99284

== ENCOUNTER 2021-04-15 22:46 | Emergency (ER) | payer OTHER, MEDICARE, SELFPAY ==
[2021-04-15 22:54] VITALS: BP 143/74; PULSE 108; RESP 16; TEMP 36.7; O2SAT 98
--- NOTE | 2021-04-15 23:33 | ECG_ITS ---
[facility] Test Date: 2021-04-15 Pat Name: Isaac Blanco Department: Room: Gender: Male Guest Relation Officer: : 1940 Requested By: Deondre Murguia Order Number: [id number] Reading MD: SOFIE JOYCE Measurements Intervals [place] Rate: 97 P: [place]: QRS: 31 QRSD: 125 T: 84 QT: 392 QTc: 500 Interpretive Statements ATRIAL FIBRILLATION MODERATE INTRAVENTRICULAR CONDUCTION DELAY [110+ ms QRS DURATION] NONSPECIFIC ST & T-WAVE ABNORMALITY ABNORMAL RHYTHM ECG Compared to ECG 03/19/2021 00:49:29 Possible ischemia no longer present T-wave abnormality still present Electronically Signed On 04-16-2021 17:45:00 RADIOLOGY PHYSICIAN ASSISTANT by SOFIE JOYCE [id number]
--- NOTE | 2021-04-16 01:33 | ECG_ITS ---
[facility] Test Date: 2021-04-16 Pat Name: Isaac Blanco Department: Room: Gender: Male Naturopath: : 1940 Requested By: Deondre Murguia Order Number: [id number] Reading MD: SOFIE JOYCE Measurements Intervals [place] Rate: 85 P: ME: QRS: 29 QRSD: 114 T: 82 QT: 419 QTc: 501 Interpretive Statements ATRIAL FIBRILLATION MODERATE INTRAVENTRICULAR CONDUCTION DELAY [110+ ms QRS DURATION] NONSPECIFIC ST & T-WAVE ABNORMALITY PROLONGED QT INTERVAL Compared to ECG 04/15/2021 22:58:33 Prolonged QT interval now present T-wave abnormality still present Electronically Signed On 04-16-2021 17:46:47 DIETARY SERVICES DIRECTOR by SOFIE JOYCE [id number]
[2021-04-16] MEDS: metoprolol tartrate 1 mg/1 mL SDV 5 mL 2.5 MG IVP (02:07)
[2021-04-16 02:16] LABS: Basophils % 0.4 %; Eosinophils # 0.1 10^3/uL (0.0-0.8); Eosinophils % 1.3 %; Hemoglobin 12.9 g/dL (11.7-16.6); Lymphocytes # 1.6 10^3/uL (0.8-4.8); Lymphocytes % 16.6 %; Mean Corpuscular HGB Conc 33.1 g/dL (30.0-36.0); Mean Corpuscular Hemoglobin 31.6 pg (28.0-34.0); Mean Corpuscular Volume 95.6 fl (80-94); Mean Platelet Volume 10.8 fL (7.4-10.4); Monocytes # 0.8 10^3/uL (0.2-0.9); Monocytes % 8.8 %; Neutrophils # 6.94 10^3/uL (1.8-7.7); Neutrophils % 72.5 %; Nucleated Red Blood Cells % 0 %; Platelet Count 222 10^3/cmm (130-400); Red Blood Count 4.08 10^6/uL (4.1-5.3); Red Cell Distribution Width 13.9 % (12.1-15.1); White Blood Count 9.6 10^3/uL (4.0-10.0)
[2021-04-16 02:25] VITALS: BP 160/82; PULSE 80; RESP 18; O2SAT 95
--- NOTE | 2021-04-16 02:26 | PC.NURSE ---
Pt. states that he can usually maintain this situation at home but tonight he could not get it to settle down.
[2021-04-16 02:34] LABS: Troponin(5th) Baseline 45 ng/L (0-15)
[2021-04-16 02:37] LABS: Alanine Aminotransferase 11 U/L (0-41); Albumin Level 4.3 g/dL (3.5-5.2); Alkaline Phosphatase 77 IU/L (40-130); Anion Gap 16.7 (5-19); Aspartate Amino Transferase 16 U/L (0-40); Blood Urea Nitrogen 24 mg/dL (8-23); Calcium 8.4 mg/dL (8.5-10.5); Carbon Dioxide 23 mmol/L (22-29); Chloride 104 mmol/L (98-107); Globulin 3.6 g/dL (1.3-4.6); Glucose 119 mg/dL (65-115); Osmolality Calculated 295 mOsm/kg (285-295); Potassium 3.7 mmol/L (3.5-5.1); Sodium 140 mmol/L (136-145); Total Bilirubin 0.5 mg/dL (0.15-1.2); Total Protein 7.9 g/dL (6.6-8.7)
[2021-04-16 02:51] VITALS: BP 160/82; PULSE 78; RESP 16; O2SAT 95
[2021-04-16 03:32] VITALS: BP 160/82; PULSE 76; RESP 18; O2SAT 98
--- NOTE | 2021-04-16 04:36 | W.ED.CHESTPA ---
HPI - Chest Pain General: Chief Complaint: Chest Pain Stated Complaint: a-fib acting up Time Seen by Provider: 04/16/21 01:32 History of Present Illness: 81-year-old gentleman with a history of coronary disease and atrial fibrillation. He had an episode of chest discomfort at home while watching TV. He took 3 nitroglycerin with some improvement in his pain, but noticed that his heart was racing his heart rate was erratic, going from 80s to 130s according to his . This has improved to some degree now, and the patient is feeling better. He had 2 recent heart cath with stent placements. He notes that he was told that essentially no other interventions could be done for him. He had seen his primary care physician for palpitations, and was told to take an extra 1.5 pills of his metoprolol should he have heart racing at home. He did this this evening and waited 2 hours without much improvement. MD complaint: chest pain and chest discomfort Pertinent past history: coronary artery disease and other Onset (ago): hour(s) Timing of current episode: episodic and now resolved Prior episodes: Yes Onset: during rest Pain location: substernal and epigastric Pain radiation: none Quality: aching Relieving factors: nitroglycerin Exacerbating factors: nothing Context: recent surgery (Heart cath) Associated symptoms: Reports nausea and palpitations; Deny abdominal pain, diaphoresis, dyspnea, fever(s), leg edema or vomiting Treatment prior to arrival: nitroglycerin Review of Systems Const: Denies: fever(s) or diaphoresis Card: Reports: chest pain and palpitations Resp: Denies: dyspnea GI: Reports: nausea; Denies: abdominal pain or vomiting Skin/Breast: Denies: rash Neuro: Denies: headache(s) PFS ED PFSH: Medical History (Updated 04/16/21 @ 03:11 by Los Casas DO) Anticoagulation adequate with anticoagulant therapy Atherosclerotic heart disease of [place] coronary artery with unstable angina pectoris Atrial fibrillation CAD (coronary artery disease) Cervical stenosis of spinal canal Cervical stenosis of spinal canal CKD (chronic kidney disease) COVID-19 resolved, Mar 2020 Dyslipidemia Essential hypertension GERD (gastroesophageal reflux disease) Ground glass opacity present on imaging of lung History of nonmelanoma skin cancer Inflammatory arthritis Ischemic cardiomyopathy NSIP (nonspecific interstitial pneumonia) NSTEMI (non-ST elevated myocardial infarction) Peripheral neuropathy SLE (systemic lupus erythematosus related syndrome) Sleep apnea TIA (transient ischemic attack) Surgical History History of coronary angiogram History of neck surgery History of shoulder surgery History of surgery on wrist Family History Other CAD (coronary artery disease) Diabetes Hypertension Denies family history of Rheumatoid arthritis Lupus Lung disease Cancer Stroke Social History Quit status (tobacco): has quit using tobacco Year quit tobacco: 1959 Former quit date comment: Hx of 1 PPD x 10 Years Second hand smoke exposure: No Smoking risk assessment/counseling performed?: Yes Alcohol intake: never Counseling given: No Counseling given: No Lives independently: Yes Household members: spouse Marital status: service: Yes Current occupational status: retired Pets and animals: No History of recent travel: No Current gender identity: Male Physical Exam Const: COMMON NORMALS: no acute distress GENERAL APPEARANCE: cooperative; not ill appearing HENMT: COMMON NORMALS: normocephalic, atraumatic and Normal external nose present HEAD & SCALP: normocephalic and atraumatic NOSE: Normal external nose present Eye: COMMON NORMALS: Equal, round and reactive pupils present and EOMs intact bilaterally PUPIL: Yes Equal, round and reactive pupils present Chest: COMMONS NORMALS: normal inspection of the chest Resp: COMMON NORMALS: normal respiratory effort, No use of accessory muscles and clear to auscultation bilaterally AUSCULTATION: clear to auscultation bilaterally Cardio: COMMON NORMALS: regular rate and Peripheral pulses 2+ throughout RATE: regular rate RHYTHM: abnormal rhythm irregularly irregular PERIPHERAL PULSES: Peripheral pulses 2+ throughout GI: COMMON NORMALS: Normal to inspection, nondistended, normoactive bowel sounds present, Soft to palpation and non-tender PALPATION: Yes Soft to palpation Extremity: COMMON NORMALS: no pedal edema Neuro: DIEGO COMA SCALE: document GCS findings [place] coma scale eye opening: Spontaneous [place] coma scale verbal response: Orientated [place] coma scale motor response: Obey commands [place] coma scale total score: 15 Course Vital Signs: Vital signs: Vital Signs Temperature 98.1 F 04/15/21 22:54 Pulse Rate 76 04/16/21 03:32 Respiratory Rate 18 04/16/21 03:32 Blood Pressure 160/82 04/16/21 03:32 Pulse Oximetry 98 04/16/21 03:32 MDM - Chest Pain Medical Decision Making 81-year-old gentleman with a history of coronary disease and atrial fibrillation. He was given 2.5 mg of IV metoprolol here with improvement in his rate. He is having no chest pain at this point. His baseline troponin was 45, which is near his normal. This is hours after his chest discomfort and palpitations began. His hemoglobin is 12. His creatinine is 1.4. With resolution in his symptoms, he will be allowed home. He was told to take his nightly medications which include metoprolol when he gets home. Lab Data : 04/16/21 02:11 04/16/21 02:11 Laboratory Results WBC 9.6 10^3/uL (4.0-10.0) 04/16/21 02:11 RBC 4.08 10^6/uL (4.1-5.3) L 04/16/21 02:11 Hgb 12.9 g/dL (11.7-16.6) 04/16/21 02:11 Hct 39.0 % (42.0-52.0) L 04/16/21 02:11 MCV 95.6 fl (80-94) H 04/16/21 02:11 MCH 31.6 pg (28.0-34.0) 04/16/21 02:11 MCHC 33.1 g/dL (30.0-36.0) 04/16/21 02:11 RDW 13.9 % (12.1-15.1) 04/16/21 02:11 Plt Count 222 10^3/cmm (130-400) 04/16/21 02:11 MPV 10.8 fL (7.4-10.4) H 04/16/21 02:11 Neut % (Auto) 72.5 % 04/16/21 02:11 Lymph % (Auto) 16.6 % 04/16/21 02:11 [place] % (Auto) 8.8 % 04/16/21 02:11 Eos % (Auto) 1.3 % 04/16/21 02:11 Baso % (Auto) 0.4 % 04/16/21 02:11 Neut # (Auto) 6.94 10^3/uL (1.8-7.7) 04/16/21 02:11 Lymph # (Auto) 1.6 10^3/uL (0.8-4.8) 04/16/21 02:11 [place] # (Auto) 0.8 10^3/uL (0.2-0.9) 04/16/21 02:11 Eos # (Auto) 0.1 10^3/uL (0.0-0.8) 04/16/21 02:11 Baso # (Auto) 0.0 10^3/uL (0.0-0.1) 04/16/21 02:11 Nucleated RBC % (auto) 0 % 04/16/21 02:11 Nucleated RBCs # 0.0 /100WBC 04/16/21 02:11 Sodium 140 mmol/L (136-145) 04/16/21 02:11 Potassium 3.7 mmol/L (3.5-5.1) 04/16/21 02:11 Chloride 104 mmol/L (98-107) 04/16/21 02:11 Carbon Dioxide 23 mmol/L (22-29) 04/16/21 02:11 Anion Gap 16.7 (5-19) 04/16/21 02:11 BUN 24 mg/dL (8-23) H 04/16/21 02:11 Creatinine 1.4 mg/dL (0.7-1.2) H 04/16/21 02:11 GFR Calculation Not Reportable 04/16/21 02:11 Glucose 119 mg/dL (65-115) H 04/16/21 02:11 Calculated Osmolality 295 mOsm/kg (285-295) 04/16/21 02:11 Calcium 8.4 mg/dL (8.5-10.5) L 04/16/21 02:11 Total Bilirubin 0.5 mg/dL (0.15-1.2) 04/16/21 02:11 AST 16 U/L (0-40) 04/16/21 02:11 ALT 11 U/L (0-41) 04/16/21 02:11 Alkaline Phosphatase 77 IU/L (40-130) 04/16/21 02:11 Troponin T Baseline 45 ng/L (0-15) H 04/16/21 02:11 Total Protein 7.9 g/dL (6.6-8.7) 04/16/21 02:11 Albumin 4.3 g/dL (3.5-5.2) 04/16/21 02:11 Globulin 3.6 g/dL (1.3-4.6) 04/16/21 02:11 Discharge Plan Discharge Patient Disposition: Home Clinical Impression: Atrial fibrillation, Chest pain Condition: Stable Prescriptions: No Action pantoprazole 40 mg tablet,delayed release (DR/EC) 40 mg PO BID 0RF Eliquis 5 mg tablet 5 mg PO BID 0RF saw palmetto 450 mg capsule 450 mg PO BID 0RF Rx Instructions: give with food (meal/snack) ranolazine 500 mg tablet extended release 12 hr 500 mg PO BID Qty: 180 3RF multivitamin Tablet 1 tab PO DAILY 0RF atorvastatin 40 mg tablet 40 mg PO BEDTIME 0RF acetaminophen 500 mg Tablet 500 mg PO TID PRN (Reason: Pain) 0RF magnesium 250 mg Tablet 250 mg PO DAILY 0RF nitroglycerin 0.4 mg tablet, sublingual 0.4 mg sublingual Q5M PRN (Reason: chest pains) 0RF Rx Instructions: max 3 tabs per episode gabapentin 100 mg Capsule 100 mg PO BEDTIME 0RF polyethylene glycol 3350 [Miralax] 17 gram Powder In Packet 17 g PO DAILY 0RF clopidogrel 75 mg Tablet 75 mg PO DAILY Qty: 90 4RF metoprolol tartrate 25 mg Tablet 25 mg PO BID Qty: 90 4RF vitamin B complex Tablet 1 tab PO DAILY 0RF fluticasone propionate 50 mcg/actuation [place],Suspension 1 spray INTRANASAL BEDTIME 0RF amoxicillin-pot clavulanate 875-125 mg tablet 1 tab PO BID 0RF isosorbide mononitrate 120 mg tablet extended release 24 hr 60 mg PO BID 0RF Discharge Orders: Discharge ED (Routine); Ordered 04/16/21 Ordered By: Los Casas Referrals: Nikita Mosher MD [Primary Care Provider] - 1-3 days Discharge Diet: Advance as tolerated Discharge Activity: Increase activity as tolerated Patient Instructions: A-fib (Atrial Fibrillation) (ED), Chest Pain (ED) Activity Restrictions/Additional Instructions: Return for return of chest discomfort, palpitations or pedal heartbeat, shortness of breath, any other concerning symptoms. Coding Level of Care Code ED Sales Representative Facility Services for Eleazar Hargrove
== END 2021-04-16 03:34 | disposition home or self-care (01) ==
PROVIDERS: Nurse Practitioner Family; Emergency Provider Emergency Medicine; PCP Family Medicine
DX: R07.9 Chest pain, unspecified (principal); I48.91 Unspecified atrial fibrillation; Z79.01 Long term (current) use of anticoagulants; Z79.02 Long term (current) use of antithrombotics/antiplatelets; I25.10 Atherosclerotic heart disease of native coronary artery without angina pectoris; E78.5 Hyperlipidemia, unspecified; I10 Essential (primary) hypertension; I25.2 Old myocardial infarction; M32.9 Systemic lupus erythematosus, unspecified; Z86.73 Personal history of transient ischemic attack (TIA), and cerebral infarction without residual deficits; Z87.891 Personal history of nicotine dependence
CPT/HCPCS: 80053; 84484; 85025; 93005; 96374; 99284; J3490

== ENCOUNTER 2021-05-02 20:00 | Outpatient (CLI) | payer MEDICARE, OTHER, SELFPAY | END 2021-05-02 20:01 | disposition home or self-care (01) | LOC: SLEEP 05-03 06:14 | PROVIDERS: PCP Family Medicine; Visit Provider Family Medicine | DX: G47.30 Sleep apnea, unspecified (principal) | CPT/HCPCS: 95811 ==

== ENCOUNTER 2021-05-17 09:24 | Outpatient (RCR) | payer MEDICARE, OTHER, SELFPAY | END 2021-06-16 23:59 | disposition home or self-care (01) | LOC: CR 09:24 | PROVIDERS: PCP Family Medicine; Referring Provider Family Medicine; Visit Provider Family Medicine | DX: Z95.5 Presence of coronary angioplasty implant and graft (principal) | CPT/HCPCS: 93798 ==

== ENCOUNTER 2021-06-17 06:30 | Inpatient (IN) | payer MEDICARE, OTHER, SELFPAY ==
[2021-06-17] VITALS (15 sets, daily range): BP systolic 101–147; BP diastolic 54–85; PULSE 56–93; RESP 10–20; TEMP 36.3–36.6; O2SAT 92–97; BMI 21.9
--- NOTE | 2021-06-17 06:44 | ECG_ITS ---
[facility] Test Date: 2021-06-17 Pat Name: Isaac Blanco Department: Room: Gender: Male Fuel Oil Clerk: : 1940 Requested By: Gaurav Cifuentes Order Number: [id number] Radha MD: Ce Huerta M.D. Measurements Intervals [place] Rate: 81 P: [place]: QRS: 55 QRSD: 107 T: 91 QT: 412 QTc: 479 Interpretive Statements ATRIAL FIBRILLATION MARKED ST DEPRESSION, CONSIDER SUBENDOCARDIAL INJURY [0.2+ mV ST DEPRESSION] ACUTE CA Compared to ECG 04/16/2021 01:33:45 ST (T wave) deviation now present Intraventricular conduction delay no longer present T-wave abnormality no longer present Prolonged QT interval no longer present Electronically Signed On 06-17-2021 13:36:54 CDT by Ce Huerta M.D. [id number]
--- NOTE | 2021-06-17 06:44 | XR_ITS ---
WS: [id number] Exam: XR chest 1V portable [id number] Date/Time of Exam: 06/17/2021 6:47 AM Reason For Exam: chest pain Comparison 03/18/2021. Lungs are clear and fully inflated. Mild cardiac enlargement. No pleural effusions. Mediastinal conto ur appears normal. Fusion hardware in the lower C-spine. Monitoring leads superimpose the chest. XR/XR chest 1V portable [id number] IMPRESSION: 1. Mild cardiac enlargement. No acute cardiopulmonary finding.
--- NOTE | 2021-06-17 06:49 | W.ED.CHESTPA ---
HPI - Chest Pain General: Chief Complaint: Chest Pain Stated Complaint: AFIB/Chest Pains Time Seen by Provider: 06/17/21 06:34 History of Present Illness: Patient comes in with chest pain. States 2 hours prior to arrival he developed midsternal chest pain which he describes as sharp and pressure. No radiation. States it is constant. States about a 5 out of 10. States he took sublingual nitro at home without resolution. States that he had an angiogram 5 months ago and had 3 stents during that. States that he has these chest pains probably once a week since then. Denies any cold symptoms, including no fever, cough, congestion, vomiting, diarrhea. Associated symptoms: Deny abdominal pain, dyspnea, fever(s), nausea, palpitations or vomiting Review of Systems Const: Denies: fever(s) or body aches Eyes: Denies: change in vision or blurry vision ENMT: Denies: throat pain or odynophagia Card: Reports: chest pain; Denies: palpitations Resp: Denies: dyspnea or productive cough GI: Denies: abdominal pain, nausea or vomiting : Denies: flank pain or dysuria Musc: Denies: neck pain or back pain Skin/Breast: Denies: rash or pruritus Neuro: Denies: headache(s) or numbness in extremities Psych: Denies: anxiety or change in appetite Endo: Denies: polyuria or excessive sweating PFSH ED PFSH: Medical History Anticoagulation adequate with anticoagulant therapy Atherosclerotic heart disease of [place] coronary artery with unstable angina pectoris Atrial fibrillation CAD (coronary artery disease) Cervical stenosis of spinal canal Cervical stenosis of spinal canal CKD (chronic kidney disease) COVID-19 resolved, Mar 2020 Dyslipidemia Essential hypertension GERD (gastroesophageal reflux disease) Ground glass opacity present on imaging of lung History of nonmelanoma skin cancer Inflammatory arthritis Ischemic cardiomyopathy NSIP (nonspecific interstitial pneumonia) NSTEMI (non-ST elevated myocardial infarction) Peripheral neuropathy SLE (systemic lupus erythematosus related syndrome) Sleep apnea TIA (transient ischemic attack) Surgical History History of coronary angiogram History of neck surgery History of shoulder surgery History of surgery on wrist Family History Other CAD (coronary artery disease) Diabetes Hypertension Denies family history of Rheumatoid arthritis Lupus Lung disease Cancer Stroke Social History Smoking and tobacco status: former smoker Quit status (tobacco): has quit using tobacco Year quit tobacco: 1959 Former quit date comment: Hx of 1 PPD x 10 Years Second hand smoke exposure: No Smoking risk assessment/counseling performed?: Yes Alcohol intake: never Counseling given: No Counseling given: No Lives independently: Yes Household members: spouse Marital status: service: Yes Current occupational status: retired Pets and animals: No History of recent travel: No Current gender identity: Male Physical Exam Const: COMMON NORMALS: no acute distress, patient oriented x3, healthy appearing and alert HENMT: COMMON NORMALS: normocephalic and atraumatic HEAD & SCALP: normocephalic and atraumatic Eye: COMMON NORMALS: Equal, round and reactive pupils present and EOMs intact bilaterally PUPIL: Yes Equal, round and reactive pupils present Neck/C-Spine: COMMON NORMALS: full ROM and supple Resp: COMMON NORMALS: normal respiratory effort, No retractions and No use of accessory muscles Cardio: COMMON NORMALS: regular rate and regular rhythm RATE: regular rate RHYTHM: regular rhythm GI: COMMON NORMALS: Normal to inspection, nondistended, normoactive bowel sounds present, Soft to palpation and non-tender PALPATION: Yes Soft to palpation Back/Pelvis: COMMON NORMALS: thoracic and lumbar spine normal to inspection and no thoracic nor lumbar tenderness Extremity: COMMON NORMALS: normal to inspection and full ROM Neuro: COMMON NORMALS: patient oriented x3 SENSORIUM/ORIENTATION: Yes alert Psych: COMMON NORMALS: mental status grossly normal and cooperative Skin: COMMON NORMALS: no rashes or lesions noted and no wounds GENERAL SKIN EXAM: no rashes or lesions noted Course Vital Signs: Vital signs: Vital Signs Temperature 97.4 F L 06/17/21 06:43 Pulse Rate 85 06/17/21 06:43 Respiratory Rate 18 06/17/21 06:43 Blood Pressure 147/54 06/17/21 06:43 Pulse Oximetry 95 06/17/21 06:43 MDM - Chest Pain Medical Decision Making Patient comes in with chest pain. States 2 hours prior to arrival he developed midsternal chest pain which he describes as sharp and pressure. No radiation. States it is constant. States about a 5 out of 10. States he took sublingual nitro at home without resolution. States that he had an angiogram 5 months ago and had 3 stents during that. States that he has these chest pains probably once a week since then. Denies any cold symptoms, including no fever, cough, congestion, vomiting, diarrhea. Physical exam is unremarkable. Will check labs, EKG, give aspirin, nitroglycerin, and reassess. On reassessment I talked to the patient about the test results. His initial troponin was 29 and his repeat troponin was 38. He is chest pain-free at this time. We will place Nitropaste, started on a heparin drip with bolus preceding. I discussed the case with cardiology and the hospitalist, and we will admit for further work-up and treatment of his NSTEMI Lab Data : 06/17/21 06:39 04 06:39 Radiology Impressions Chest X-Ray 06/17/21 06:44 IMPRESSION: 1. Mild cardiac enlargement. No acute cardiopulmonary finding. Laboratory Results WBC 9.3 10^3/uL (4.0-10.0) 06/17/21 06:39 RBC 4.16 10^6/uL (4.1-5.3) 06/17/21 06:39 Hgb 12.5 g/dL (11.7-16.6) 06/17/21 06:39 Hct 38.7 % (42.0-52.0) L 06/17/21 06:39 MCV 93.0 fl (80-94) 06/17/21 06:39 MCH 30.0 pg (28.0-34.0) 06/17/21 06:39 MCHC 32.3 g/dL (30.0-36.0) 06/17/21 06:39 RDW 14.6 % (12.1-15.1) 06/17/21 06:39 Plt Count 176 10^3/cmm (130-400) 06/17/21 06:39 MPV 11.6 fL (7.4-10.4) H 06/17/21 06:39 Neut % (Auto) 68.1 % 06/17/21 06:39 Lymph % (Auto) 18.6 % 06/17/21 06:39 [place] % (Auto) 8.7 % 06/17/21 06:39 Eos % (Auto) 3.8 % 06/17/21 06:39 Baso % (Auto) 0.4 % 06/17/21 06:39 Neut # (Auto) 6.34 10^3/uL (1.8-7.7) 06/17/21 06:39 Lymph # (Auto) 1.7 10^3/uL (0.8-4.8) 06/17/21 06:39 [place] # (Auto) 0.8 10^3/uL (0.2-0.9) 06/17/21 06:39 Eos # (Auto) 0.4 10^3/uL (0.0-0.8) 06/17/21 06:39 Baso # (Auto) 0.0 10^3/uL (0.0-0.1) 06/17/21 06:39 Nucleated RBC % (auto) 0 % 06/17/21 06:39 Nucleated RBCs # 0.0 /100WBC 06/17/21 06:39 Sodium 137 mmol/L (136-145) 06/17/21 06:39 Potassium 3.7 mmol/L (3.5-5.1) 06/17/21 06:39 Chloride 103 mmol/L (98-107) 06/17/21 06:39 Carbon Dioxide 24 mmol/L (22-29) 06/17/21 06:39 Anion Gap 13.7 (5-19) 06/17/21 06:39 BUN 21 mg/dL (8-23) 06/17/21 06:39 Creatinine 1.3 mg/dL (0.7-1.2) H 06/17/21 06:39 GFR Calculation Not Reportable 06/17/21 06:39 Glucose 112 mg/dL (65-115) 06/17/21 06:39 Calculated Osmolality 288 mOsm/kg (285-295) 06/17/21 06:39 Calcium 9.3 mg/dL (8.5-10.5) 06/17/21 06:39 Total Bilirubin 0.7 mg/dL (0.15-1.2) 06/17/21 06:39 AST 16 U/L (0-40) 06/17/21 06:39 ALT 10 U/L (0-41) 06/17/21 06:39 Alkaline Phosphatase 74 IU/L (40-130) 06/17/21 06:39 Troponin T Baseline 29 ng/L (0-15) H 06/17/21 06:39 Troponin T 120 Minute 38.57 ng/L (0-15) H 06/17/21 08:48 Delta Troponin T 9.57 ABS# (0-10) 06/17/21 08:48 Total Protein 7.7 g/dL (6.6-8.7) 06/17/21 06:39 Albumin 4.1 g/dL (3.5-5.2) 06/17/21 06:39 Globulin 3.6 g/dL (1.3-4.6) 06/17/21 06:39 Lipase 28 U/L (13-60) 06/17/21 06:39 Critical Care Time Critical Care Time: Critical Care Time: Yes Total Critical Care Time: 35 Attestation: This case had a high probability of a clinically significant, sudden, or life threatening deterioration of this patient's condition which required my full and direct attention, intervention and personal management. Discharge Plan Discharge Patient Disposition: Admitted As Inpatient Clinical Impression: Non-ST elevation (NSTEMI) myocardial infarction Condition: Stable Coding Level of Care Code ED Semiconductor Packages Platemaker for Eleazar Hargrove Exam Comprehensive
[2021-06-17] MEDS: aspirin 81 mg Chew Tablet 324 MG PO (06:56)
[2021-06-17 06:57] LABS: Basophils % 0.4 %; Eosinophils # 0.4 10^3/uL (0.0-0.8); Eosinophils % 3.8 %; Hematocrit 38.7 % (42.0-52.0); Hemoglobin 12.5 g/dL (11.7-16.6); Lymphocytes # 1.7 10^3/uL (0.8-4.8); Lymphocytes % 18.6 %; Mean Corpuscular HGB Conc 32.3 g/dL (30.0-36.0); Mean Platelet Volume 11.6 fL (7.4-10.4); Monocytes # 0.8 10^3/uL (0.2-0.9); Monocytes % 8.7 %; Neutrophils # 6.34 10^3/uL (1.8-7.7); Neutrophils % 68.1 %; Nucleated Red Blood Cells % 0 %; Platelet Count 176 10^3/cmm (130-400); Red Blood Count 4.16 10^6/uL (4.1-5.3); Red Cell Distribution Width 14.6 % (12.1-15.1); White Blood Count 9.3 10^3/uL (4.0-10.0)
[2021-06-17] MEDS: lidocaine 2% viscous 15 ML, aluminum-mag hydrox-simethicon 30 ML, sucralfate oral liq 1 GM PO (06:57)
[2021-06-17] MEDS: nitroglycerin 0.4 mg sublingual Tablet SUBLINGUAL ×2 (06:57→07:03)
[2021-06-17 07:17] LABS: Alanine Aminotransferase 10 U/L (0-41); Albumin Level 4.1 g/dL (3.5-5.2); Alkaline Phosphatase 74 IU/L (40-130); Anion Gap 13.7 (5-19); Aspartate Amino Transferase 16 U/L (0-40); Blood Urea Nitrogen 21 mg/dL (8-23); Calcium 9.3 mg/dL (8.5-10.5); Carbon Dioxide 24 mmol/L (22-29); Chloride 103 mmol/L (98-107); Globulin 3.6 g/dL (1.3-4.6); Glucose 112 mg/dL (65-115); Lipase 28 U/L (13-60); Osmolality Calculated 288 mOsm/kg (285-295); Potassium 3.7 mmol/L (3.5-5.1); Sodium 137 mmol/L (136-145); Total Bilirubin 0.7 mg/dL (0.15-1.2); Total Protein 7.7 g/dL (6.6-8.7); Troponin(5th) Baseline 29 ng/L (0-15)
--- NOTE | 2021-06-17 07:25 | PC.NURSE ---
WHILE AT BEDSIDE PT IS IN NAD. PT IS AWAKE ALERT AND ANSWERING QUESTIONS APPROPRIATELY. PT DENIES ANY CP AT THIS TIME.
--- NOTE | 2021-06-17 08:44 | ECG_ITS ---
[facility] Test Date: 2021-06-17 Pat Name: Isaac Blanco Department: Room: Gender: Male Loom Changer: : 1940 Requested By: Gaurav Cifuentes Order Number: [id number] Radha MD: Ce Huerta M.D. Measurements Intervals [place] Rate: 96 P: [place]: QRS: 25 QRSD: 112 T: -15 QT: 405 QTc: 514 Interpretive Statements ATRIAL FIBRILLATION MODERATE INTRAVENTRICULAR CONDUCTION DELAY [110+ ms QRS DURATION] NONSPECIFIC ST & T-WAVE ABNORMALITY ABNORMAL RHYTHM ECG Compared to ECG 06/17/2021 06:38:11 Intraventricular conduction delay now present T-wave abnormality now present ST (T wave) deviation no longer present Electronically Signed On 06-17-2021 13:58:16 CDT by Ce Huerta M.D. [id number]
--- NOTE | 2021-06-17 08:44 | PC.PHAR ---
pt states he takes care of his own medications-pt states he no longer takes amiodarone 50mg daily medication is still [place] [facility]-pt states the mycophenolate 500mg bid is on hold states he hasnt taken in 3-[address] doesnt want him to take till he has another lung scan-pt states he only takes isosorbide mono 60mg qam rx filled for 120mg daily on 05/30/21 30d/s-notes are made in the pharmacy comments
[2021-06-17 09:22] LABS: Troponin 5 2HR 38.57 ng/L (0-15)
[2021-06-17 09:24] LABS: Troponin 5 2HR Delta 9.57 ABS# (0-10)
[2021-06-17] MEDS: nitroglycerin 1 gm/inch oint Pkt 1 INCH TOPICAL ×3 (10:41→21:06)
[2021-06-17] MEDS: heparin 5,000 unit/mL INJ 1 mL 4000 UNIT IVP (10:41)
[2021-06-17] MEDS: heparin drip 25,000 UNIT/500 ML PREMIX 18.29 UNIT IV (10:47)
--- NOTE | 2021-06-17 11:31 | P.HP_ITS ---
Providers/Chief Complaint Primary Care Provider: Nikita Mosher MD Chief Complaint: AFIB/Chest Pains History of Present Illness Isaac Blanco is a 81 year old male who presents to the hospital with complaints of chest discomfort. He reports this woke him up from sleep around 430. It was fairly severe, and similar to the discomfort he had when coronary stents were put in. He reports it was substernal, somewhat squeezing in nature although he has trouble quantifying this. He denies any nausea vomiting or shortness of breath associated. He reports his vitals religiously, and noted his heart rate to be in the mid 120s when this occurred. He has a history of atrial fibrillation and has been told to take metoprolol 50 mg, extra dose, when this occurs. He also took 3 sublingual nitroglycerin. Secondary to ongoing discomfo rt he came into the emergency department. He also has an element of chronic chest discomfort he has had since his angiogram in February. He reports that discomfort is usually very minor, 1-2 out of 10. In February he received a drug-eluting stent in the distal left anterior descending artery, and balloon angioplasty of the distal circumflex, first diagonal, and second diagonal for his four-vessel atherosclerotic disease. RCA was reported to be free of disease. He denies any recent illnesses. He reports no substantial cough, fever, vomiting, or diarrhea. No severe reflux. Reports no blood in his stool or black or tarry stools. He has been compliant with his chronic medications. He is being followed by pulmonary for concern of groundglass, interstitial lung disease for which there was a concern this was induced by amiodarone, or potentially lupus. Review of Systems General: Reports: 10 or more systems reviewed and unremarkable except in HPI and below Const: Denies: fever(s), chills or malaise Eyes: Denies: change in vision ENMT: Denies: throat pain Card: Reports: chest pain; Denies: edema or dyspnea on exertion Resp: Denies: dyspnea GI: Denies: abdominal pain, nausea, vomiting, hematemesis, hematochezia or melena : Denies: flank pain Musc: Denies: neck pain Skin/Breast: Denies: rash Neuro: Denies: headache(s) Psych: Denies: anxiety or depression Endo: Denies: polyuria Ever/Lymph: Denies: easy bruising All/Imm: Denies: urticaria Medications/Allergies Home Medications Medication Instructions Recorded Confirmed Last Taken Type saw palmetto 450 mg capsule 450 mg PO BID 08/21/19 06/17/21 06/16/21 History atorvastatin 40 mg tablet 40 mg PO BEDTIME 02/17/20 06/17/21 06/16/21 History magnesium 250 mg tablet 250 mg PO DAILY 02/17/20 06/17/21 06/16/21 History multivitamin 1 tab PO DAILY 02/17/20 06/17/21 06/16/21 History nitroglycerin 0.4 mg sublingual 0.4 mg SUBLINGUAL Q5M PRN 02/17/20 06/17/21 06/17/21 History tablet pantoprazole 40 mg tablet,delayed 40 mg PO BID tab 09/27/20 06/17/21 06/16/21 History release gabapentin 100 mg capsule 100 mg PO BEDTIME 02/10/21 06/17/21 06/16/21 History polyethylene glycol 3350 17 gram 17 g PO QAM 02/27/21 06/17/21 06/16/21 History oral powder packet (Miralax) fluticasone propionate 50 2 spray INTRANASAL DAILY PRN 03/04/21 06/17/21 03/15/21 History mcg/actuation nasal spray,suspension vitamin B complex 1 tab PO DAILY 03/04/21 06/17/21 06/16/21 History isosorbide mononitrate 120 mg 60 mg PO QAM 03/16/21 06/17/21 06/16/21 History tablet,extended release 24 hr ranolazine 500 mg tablet,extended 500 mg PO BID #180 tab 03/28/21 06/17/21 06/16/21 Rx release,12 hr metoprolol tartrate 50 mg tablet 50 mg PO BID #180 tab 04/29/21 06/17/21 06/16/21 Rx apixaban 5 mg tablet (Eliquis) 2.5 mg PO BID tab 05/03/21 06/17/21 06/16/21 History carboxymethylcellulose sodium 1 % 1 drp OPHTHALMIC (EYE) BID 06/17/21 06/17/21 Unknown History eye drops (Artificial Tears (carboxymethylcellulose)) clopidogrel 75 mg tablet 75 mg PO QAM 06/17/21 06/17/21 06/16/21 History Allergies Allergy/AdvReac Type Severity Reaction Status Date / Time hydrocodone Allergy Severe Unknown Verified 05/03/21 14:50 codeine Allergy Unknown Unknown Verified 05/03/21 14:50 PFSH Acute PFSH: Medical History (Updated 06/17/21 @ 11:41 by Syed ePrales MD) Anticoagulation adequate with anticoagulant therapy Atherosclerotic heart disease of [place] coronary artery with unstable angina pectoris Last echocardiogram EF 50%, mild mitral and atrial regurgitation February 2021 Atrial fibrillation CAD (coronary artery disease) Cervical stenosis of spinal canal Cervical stenosis of spinal canal CKD (chronic kidney disease) COVID-19 resolved, Mar 2020 Dyslipidemia Essential hypertension GERD (gastroesophageal reflux disease) Ground glass opacity present on imaging of lung History of nonmelanoma skin cancer Hyperlipidemia Inflammatory arthritis Ischemic cardiomyopathy NSIP (nonspecific interstitial pneumonia) NSTEMI (non-ST elevated myocardial infarction) Peripheral neuropathy SLE (systemic lupus erythematosus related syndrome) Sleep apnea TIA (transient ischemic attack) Surgical History History of coronary angiogram History of neck surgery History of shoulder surgery History of surgery on wrist Family History Other CAD (coronary artery disease) Diabetes Hypertension Denies family history of Rheumatoid arthritis Lupus Lung disease Cancer Stroke Social History Smoking and tobacco status: former smoker Quit status (tobacco): has quit using tobacco Year quit tobacco: 1959 Former quit date comment: Hx of 1 PPD x 10 Years Second hand smoke exposure: No Smoking risk assessment/counseling performed?: Yes Alcohol intake: never Counseling given: No Counseling given: No Lives independently: Yes Household members: spouse Marital status: service: Yes Current occupational status: retired Pets and animals: No History of recent travel: No Current gender identity: Male Vitals/I&O/Wt Last Vital Signs Temp 97.4 F L 06/17/21 06:43 Pulse 85 06/17/21 06:43 Resp 18 06/17/21 06:43 BP 147/54 06/17/21 06:43 Pulse Ox 95 06/17/21 06:43 Weight last 48 hrs Weight 65.317 kg Physical Exam Narrative: General exam is a white male, reporting mild chest discomfort, getting ready to receive nitroglycerin ointment, in no distress HEENT: Pupils equally round. A head is atraumatic and normocephalic. Oropharynx clear. Neck is supple no lymphadenopathy or thyromegaly Cardiovascular irregular, irregular rhythm without murmur, no S3 or S4 Abdomen is soft nontender with positive bowel sounds. No obvious organomegaly Lungs clear no wheezing or crackles Extremities no cyanosis clubbing or edema, cap refill brisk Skin no rash deferred Neuro no obvious focal deficits Data : 06/17/21 06:39 06/17/21 06:39 Other Labs: Chest x-ray mild cardiomegaly, no infiltrate EKG demonstrates atrial fibrillation, normal axis, ST depression V4 through 6, as well as inferiorly. This ST depression was also noted on previous EKGs. LFTs are normal Troponin XX 9 with repeat of 39 Lipase normal A&P Assessment and plan (1) Non-ST elevation (NSTEMI) myocardial infarction: Presents with chest discomfort, still with some element of this although much improved. Troponin elevation is noted. This may have been precipitated by atrial fibrillation with rapid ventricular rate, as patient was recording heart rate in the mid 120s. He took an extra metoprolol prior to presentation here. He has had a rather recent echocardiogram. Will allow cardiology to decide if repeat is needed. Continue serial troponins Agree with nitroglycerin ointment started in the emergency department. Continue the patient's beta-sharri, Plavix, statin. Add aspirin Anticoagulation with heparin. He is on apixaban chronically which will be held in case procedure is warranted Hold ranolazine for now until cardiology can evaluate. Morphine for breakthrough pain Status: Acute (2) Atrial fibrillation: Patient with history of atrial fibrillation. He is recorded numerous heart rates 48-60 on his current regimen. He reports when he has chest discomfort it is frequently higher, in the mid 120s and he is taking extra metoprolol. Cannot rule out some concerns with tachycardia induced angina. Cardiology will evaluate for tachybradycardia syndrome. He is not a great candidate for amiodarone as there is been a concern that this is caused interstitial lung disease in the past. 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 Patient is refused CellCept therapy at this time. Status: Acute (4) CAD (coronary artery disease): Has known coronary disease, four-vessel, with significant intervention in February 2021 with LAD stenting as well as angioplasty to the first and second diagonal as well as circumflex. RCA did not have significant disease. Status: Acute Plan Multiple other medical problems as outlined in past medical history Full code at this time Heparin will suffice for DVT prophylaxis Attestations Medical Necessity Statement*: Will need greater than 2 midnight stay for evaluation and treatment of non-ST elevation myocardial infarction, arrhythmia Coding Level of Care Code Acute Electronic Console Display Operator for [facility] Fwd Diagnoses Non-ST elevation (NSTEMI) myocardial infarction I21.4 Atrial fibrillation I48.91 NSIP (nonspecific interstitial pneumonia) J84.89 CAD (coronary artery disease) I25.10
[2021-06-17 12:42] LABS: Partial Thromboplastin Time 35.8 SECONDS (23.9-36.7)
--- NOTE | 2021-06-17 12:44 | ECG_ITS ---
[facility] Test Date: 2021-06-17 Pat Name: Isaac Blanco Department: Room: Gender: Male Electronic Prepress Technician: : 1940 Requested By: Gaurav Cifuentes Order Number: [id number] Radha MD: Ce Huerta M.D. Measurements Intervals [place] Rate: 78 P: SC: QRS: 38 QRSD: 113 T: 261 QT: 410 QTc: 469 Interpretive Statements ATRIAL FIBRILLATION MODERATE INTRAVENTRICULAR CONDUCTION DELAY [110+ ms QRS DURATION] ST DEVIATION AND MODERATE T-WAVE ABNORMALITY, CONSIDER INFERIOR ISCHEMIA [-0.1+ mV T-WAVE IN II/aVF] Compared to ECG 06/17/2021 08:51:41 Possible ischemia now present T-wave abnormality still present Electronically Signed On 06-17-2021 13:59:28 CDT by Ce Huerta M.D. [id number]
--- NOTE | 2021-06-17 14:48 | PC.NURSE ---
report called to vinay calderón.
--- NOTE | 2021-06-17 15:05 | PC.NURSE ---
Admit Note Patient admitted to room 103 from ER via wheelchair. Covering service notified. Patient presents with Atrial fibrillation and chest pain. Orders reviewed & will continue to monitor. Pt is still on Afib w/HR in upper 90s to 100s. Patient and/or hostess party sales representative oriented to environment, equipment, and informed of the following as found in the admission booklet: patient rights & responsibilities, visitor policy, hand and respiratory hygiene practice. Other education includes: call light use, telemtry monitoring,iv pump use. Patient and/or hostess party sales representative verbalizes understanding.
--- NOTE | 2021-06-17 15:50 | PM.CONSULT ---
Providers/Reason For Consult Consulting Physician/Specialty*: Cardiovascular medicine Reason for Consult*: Recurrent chest pain, non-ST segment elevation OR Requesting Physician: Diaz Attending Physician: Syed Perales MD Primary Care Provider: Nikita Mosher MD History of Present Illness History of Present Illness Isaac Blanco is a 81 year old male who was a previous patient of mine when I was here full-time. He has small vessel underlying rather severe coronary artery disease and has chest pain almost constantly. He is in and out of the hospital frequently with chest pain and small non-ST segment elevation MIs. He has had innumerable interventions but is not a candidate for surgery. Most recently he had at least one stent placed in the LAD in February of last year now some just 3 months ago. An angioplasty was done of the first diagonal. He has a small ramus intermedius branch which is too small for intervention. His right coronary artery I think is still free of disease relatively speaking. Despite all of this Isaac has chest pain nearly constantly. I used to see him in the office frequently for rather constant chest pain. He also has underlying atrial fibrillation for which she uses as needed metoprolol. His atrial fibrillation is typically the triggering event for episodes of chest pain. He will have rapid atrial fibrillation which almost always triggers his chest pain. He has struggled with figuring out how to manage it. This morning at 430, which is typical for him, he awoke with chest discomfort. He felt like he was having a rapid heart rate. He came to the hospital as is his usual custom. He is on heparin, aspirin, Plavix, beta-sharri and topical nitroglycerin. His factor Xa inhibitor has been held in case angiography is necessary. His initial troponin was 29, the 120-minute 1 was 38 in the 6-hour troponin was 54. 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 Medications/Allergies Home Medications Medication Instructions Recorded Confirmed Last Taken Type saw palmetto 450 mg capsule 450 mg PO BID 08/21/19 06/17/21 06/16/21 History atorvastatin 40 mg tablet 40 mg PO BEDTIME 02/17/20 06/17/21 06/16/21 History magnesium 250 mg tablet 250 mg PO DAILY 1206/17/21 06/16/21 History multivitamin 1 tab PO DAILY 02/17/20 06/17/21 06/16/21 History nitroglycerin 0.4 mg sublingual 0.4 mg SUBLINGUAL Q5M PRN 02/17/20 06/17/21 06/17/21 History tablet pantoprazole 40 mg tablet,delayed 40 mg PO BID tab 09/27/20 06/17/21 06/16/21 History release gabapentin 100 mg capsule 100 mg PO BEDTIME 02/10/21 06/17/21 06/16/21 History polyethylene glycol 3350 17 gram 17 g PO QAM 02/27/21 06/17/21 06/16/21 History oral powder packet (Miralax) fluticasone propionate 50 2 spray INTRANASAL DAILY PRN 03/04/21 06/17/21 03/15/21 History mcg/actuation nasal spray,suspension vitamin B complex 1 tab PO DAILY 03/04/21 06/17/21 06/16/21 History isosorbide mononitrate 120 mg 60 mg PO QAM 03/16/21 06/17/21 06/16/21 History tablet,extended release 24 hr ranolazine 500 mg tablet,extended 500 mg PO BID #180 tab 03/28/21 06/17/21 06/16/21 Rx release,12 hr metoprolol tartrate 50 mg tablet 50 mg PO BID #180 tab 04/29/21 06/17/21 06/16/21 Rx apixaban 5 mg tablet (Eliquis) 2.5 mg PO BID tab 05/03/21 06/17/21 06/16/21 History carboxymethylcellulose sodium 1 % 1 drp OPHTHALMIC (EYE) BID 06/17/21 06/17/21 Unknown History eye drops (Artificial Tears (carboxymethylcellulose)) clopidogrel 75 mg tablet 75 mg PO QAM 06/17/21 06/17/21 06/16/21 History Allergies Allergy/AdvReac Type Severity Reaction Status Date / Time hydrocodone Allergy Severe Unknown Verified 05/03/21 14:50 codeine Allergy Unknown Unknown Verified 05/03/21 14:50 Current Medications Generic Name Dose Route Start Last Admin Trade Name Freq PRN Reason Stop Dose Admin Heparin Sodium/Sodium Chloride 25,000 unit in 500 mls @ 0 mls/hr 06/17/21 10:45 04/01/22 10:47 Heparin Drip IV 14 unit/kg/hr .Q0M MISSY 18.29 mls/hr Administration Protocol Per Protocol Nitroglycerin 0.4 mg 06/17/21 06:44 06/17/21 07:03 Nitroglycerin 0.4 Mg Sublingual Tablet SUBLINGUAL 1 tab Q5M PRN Administration CHEST PAIN PFSH Acute PFSH: Medical History (Updated 06/17/21 @ 15:57 by Asael Chahal MD) Anticoagulation adequate with anticoagulant therapy Atherosclerotic heart disease of [place] coronary artery with unstable angina pectoris Last echocardiogram EF 50%, mild mitral and atrial regurgitation February 2021 Atrial fibrillation CAD (coronary artery disease) Cervical stenosis of spinal canal Cervical stenosis of spinal canal CKD (chronic kidney disease) COVID-19 resolved, Mar 2020 Dyslipidemia Essential hypertension GERD (gastroesophageal reflux disease) Ground glass opacity present on imaging of lung History of nonmelanoma skin cancer Hyperlipidemia Inflammatory arthritis Ischemic cardiomyopathy NSIP (nonspecific interstitial pneumonia) NSTEMI (non-ST elevated myocardial infarction) Peripheral neuropathy SLE (systemic lupus erythematosus related syndrome) Sleep apnea TIA (transient ischemic attack) Surgical History History of coronary angiogram History of neck surgery History of shoulder surgery History of surgery on wrist Family History Other CAD (coronary artery disease) Diabetes Hypertension Denies family history of Rheumatoid arthritis Lupus Lung disease Cancer Stroke Social History Smoking and tobacco status: former smoker Quit status (tobacco): has quit using tobacco Year quit tobacco: 1959 Former quit date comment: Hx of 1 PPD x 10 Years Second hand smoke exposure: No Smoking risk assessment/counseling performed?: Yes Alcohol intake: never Counseling given: No Counseling given: No Lives independently: Yes Household members: spouse Marital status: service: Yes Current occupational status: retired Pets and animals: No History of recent travel: No Current gender identity: Male Vitals/I&O/Wt Last Vital Signs Temp 97.4 F L 06/17/21 06:43 Pulse 70 06/17/21 14:48 Resp 15 06/17/21 14:48 BP 111/71 06/17/21 14:48 Pulse Ox 93 06/17/21 14:48 Weight last 48 hrs Weight 144 lb Physical Exam Narrative: GENERAL: HEENIn general he is his usual quiet somber self without much to say. No distress currently. No chest pain currently. within normal limits. NECK: Supple without jugular vein distention. The carotid upstroke is normal without bruits. BACK: Exam normal. LUNGS: Clear. HEART: Regular rate and rhythm. ABDOMEN: Benign without organomegaly or tenderness. EXTREMITIES: No edema. NEUROLOGIC: Exam normal. SKIN: Unremarkable. Data : 06/17/21 06:39 06/17/21 06:39 A&P Assessment and plan (1) Atrial fibrillation: Status: Acute (2) Non-ST elevation (NSTEMI) myocardial infarction: Status: Acute (3) CAD (coronary artery disease): Status: Acute (4) Sleep apnea: Status: Acute Qualifiers: Sleep apnea type: obstructive Qualified Code(s): G47.33 - Obstructive sleep apnea (adult) (pediatric) Plan He and I have had this discussion it is always difficult to decide whether to perform angiography since it is unlikely we will be able to help him and he is not a candidate for surgery. Despite this he continues to have episodes of chest pain presenting himself to the hospital with mild increases in his troponin. Today we will continue to treat him with medications to see if we can cool this off. I will see him again in the morning and will decide whether angiography is warranted. This is a chronic recurrent situation that has no good answer unfortunately. Coding Level of Care Code New Pt Acute Price Accuracy Supervisor for [facility] Patient Type New History Comprehensive Exam Comprehensive Medical Decision Making High Complexity Diagnoses Atrial fibrillation I48.91 Non-ST elevation (NSTEMI) myocardial infarction I21.4 CAD (coronary artery disease) I25.10 Sleep apnea G47.33 Sleep apnea type: obstructive Time Spent (min) 40
[2021-06-17 17:03] LABS: Partial Thromboplastin Time 158.6 SECONDS (23.9-36.7)
[2021-06-17] MEDS: pantoprazole DR 40 mg Tablet PO (17:28)
[2021-06-17] MEDS: acetaminophen 325 mg Tablet 650 MG PO (17:28)
--- NOTE | 2021-06-17 19:26 | PC.NURSE ---
Received report from HERBERT Castellanos. Patient resting in bed with eyes closed. Spontaneously opens eyes with verbal stimuli. Patient denies chest pain or other needs at this time. No distress observed. Will continue to monitor.
[2021-06-17] MEDS: atorvastatin 40 mg Tablet PO (21:05)
[2021-06-17] MEDS: enoxaparin 60 mg/0.6 mL Syringe SUBCUT (21:05)
[2021-06-17] MEDS: gabapentin 100 mg Capsule PO (21:05)
[2021-06-17] MEDS: metoprolol tartrate 50 mg Tablet PO (21:05)
[2021-06-18] VITALS (12 sets, daily range): BP systolic 101–136; BP diastolic 50–69; PULSE 48–62; RESP 12–18; TEMP 36.5–36.8; O2SAT 90–97
[2021-06-18 04:23] LABS: Basophils # 0.1 10^3/uL (0.0-0.1); Basophils % 0.6 %; Eosinophils # 0.3 10^3/uL (0.0-0.8); Eosinophils % 3.2 %; Hematocrit 35.7 % (42.0-52.0); Hemoglobin 11.6 g/dL (11.7-16.6); Lymphocytes # 2.4 10^3/uL (0.8-4.8); Lymphocytes % 27.6 %; Mean Corpuscular HGB Conc 32.5 g/dL (30.0-36.0); Mean Corpuscular Hemoglobin 29.7 pg (28.0-34.0); Mean Corpuscular Volume 91.5 fl (80-94); Mean Platelet Volume 12.1 fL (7.4-10.4); Monocytes # 0.8 10^3/uL (0.2-0.9); Monocytes % 9.3 %; Neutrophils # 5.15 10^3/uL (1.8-7.7); Nucleated Red Blood Cells % 0 %; Platelet Count 165 10^3/cmm (130-400); Red Cell Distribution Width 14.6 % (12.1-15.1); White Blood Count 8.7 10^3/uL (4.0-10.0)
[2021-06-18 04:50] LABS: Anion Gap 14.6 (5-19); Blood Urea Nitrogen 24 mg/dL (8-23); Calcium 9.1 mg/dL (8.5-10.5); Carbon Dioxide 22 mmol/L (22-29); Chloride 104 mmol/L (98-107); Glucose 84 mg/dL (65-115); Magnesium 2.1 mg/dL (1.7-2.3); Osmolality Calculated 287 mOsm/kg (285-295); Potassium 3.6 mmol/L (3.5-5.1); Sodium 137 mmol/L (136-145)
[2021-06-18] MEDS: clopidogrel 75 mg Tablet PO (05:04)
[2021-06-18] MEDS: nitroglycerin 1 gm/inch oint Pkt 1 INCH TOPICAL (05:04)
--- NOTE | 2021-06-18 09:35 | P.PN_ITS ---
Subjective Subjective: Isaac is his usual self this morning. He cannot make a decision. He was like this when I took care of him when I was here full-time. He and his have difficulty staying on track and discussing the issue at hand. He is not had any more chest pain overnight. He will not make a decision about angiography. He just had an angiogram 3 months ago where intervention was done. When I took care of him years ago his chest pain was always brought on by the occurrences of atrial fibrillation. That was the case this time. He is now back in a sinus rhythm. He feels well. Vitals/I&O/Wt Last Vital Signs Temp 98.0 F 06/18/21 07:39 Pulse 62 06/18/21 07:53 Resp 16 06/18/21 07:53 BP 136/57 06/18/21 07:33 Pulse Ox 97 06/18/21 07:53 06/17/21 06/18/21 06/18/21 22:59 06:59 14:59 Intake Total 270.283 / 270.283 360 / 630.283 Output Total 525 / 525 400 / 925 Balance -254.717 / -254.717 -40 / -294.717 Weight last 48 hrs Weight 144 lb Physical Exam Narrative: GENERAL: In general he is his usual stoic quiet self HEENT: Exam within normal limits. NECK: Supple without jugular vein distention. The carotid upstroke is normal without bruits. BACK: Exam normal. LUNGS: Clear. HEART: Regular rate and rhythm. ABDOMEN: Benign without organomegaly or tenderness. EXTREMITIES: No edema. NEUROLOGIC: Exam normal. SKIN: Unremarkable. Data : 06/18/21 03:19 06/18/21 03:19 A&P Assessment and plan (1) Hyperlipidemia: Status: Acute (2) CKD (chronic kidney disease): Status: Acute Qualifiers: Chronic kidney disease stage: stage 3 (moderate) Chronic kidney disease stage 3 subtype: stage 3b (GFR 30-44) Qualified Code(s): N18.32 - Chronic kidney disease, stage 3b (3) Atrial fibrillation: Status: Acute (4) Non-ST elevation (NSTEMI) myocardial infarction: Status: Acute (5) CAD (coronary artery disease): Status: Acute (6) Anticoagulation adequate with anticoagulant therapy: Status: Acute (7) Essential hypertension: Status: Acute Plan After a very lengthy and somewhat frustrating discussion we have decided to hold off on angiography. We will get him up and around and in the hallway today. I suspect as long as he remains in sinus rhythm he will have any more chest pain. His creatinine slowly goes up over time and I do not want to force the angiogram issue unless we are in a position to need the angiogram. For now I will add back his apixaban, make sure that he is no longer on heparin, keep him on the nitrates, beta-blockers and Plavix. If he remains free of chest pain today I will discussed discharge with him in the morning. 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
[2021-06-18] MEDS: aspirin 81 mg EC Tablet PO (09:52)
[2021-06-18] MEDS: pantoprazole DR 40 mg Tablet PO ×2 (09:53→18:19)
[2021-06-18] MEDS: metoprolol tartrate 50 mg Tablet PO ×2 (09:53→20:26)
[2021-06-18] MEDS: isosorbide mononitrate ER 60 mg Tablet PO (09:59)
--- NOTE | 2021-06-18 12:49 | P.PN_ITS ---
Subjective Subjective: Patient was seen in the morning, he denies any recurrent chest pain, no lightheadedness, no dizziness, no chest palpitations, Vitals/I&O/Wt Last Vital Signs Temp 98.0 F 06/18/21 07:39 Pulse 62 06/18/21 07:53 Resp 16 06/18/21 07:53 BP 136/57 06/18/21 07:33 Pulse Ox 97 06/18/21 07:53 06/17/21 06/18/21 06/18/21 22:59 06:59 14:59 Intake Total 270.283 / 270.283 360 / 630.283 Output Total 525 / 525 400 / 925 Balance -254.717 / -254.717 -40 / -294.717 Weight last 48 hrs Weight 65.317 kg Physical Exam Const: COMMON NORMALS: no acute distress and patient oriented x3 Resp: COMMON NORMALS: normal respiratory effort, No retractions, No use of accessory muscles and clear to auscultation bilaterally AUSCULTATION: clear to auscultation bilaterally Cardio: COMMON NORMALS: regular rate, S1 normal heart sound present and S2 normal heart sound present RATE: regular rate RHYTHM: abnormal rhythm irregularly irregular HEART SOUNDS: S1 normal heart sound present and S2 normal heart sound present GI: COMMON NORMALS: Normal to inspection, nondistended, normoactive bowel sounds present, Soft to palpation and non-tender PALPATION: Yes Soft to palpation Extremity: COMMON NORMALS: no pedal edema Neuro: COMMON NORMALS: patient oriented x3 Psych: COMMON NORMALS: mental status grossly normal Data : 06/18/21 03:19 06/18/21 03:19 A&P Assessment and plan (1) Non-ST elevation (NSTEMI) myocardial infarction: -No recurrent chest pain, awaiting cardiology's evaluation Presents with chest discomfort, still with some element of this although much improved. Troponin elevation is noted. This may have been precipitated by atrial fibrillation with rapid ventricular rate, as patient was recording heart rate in the mid 120s. He took an extra metoprolol prior to presentation here. He has had a rather recent echocardiogram. Will allow cardiology to decide if repeat is needed. Continue serial troponins Agree with nitroglycerin ointment started in the emergency department. Continue the patient's beta-sharri, Plavix, statin. Add aspirin Anticoagulation with heparin. He is on apixaban chronically which will be held in case procedure is warranted Hold ranolazine for now until cardiology can evaluate. Morphine for breakthrough pain Status: Acute (2) Atrial fibrillation: -A. fib, heart rates well controlled Patient with history of atrial fibrillation. He is recorded numerous heart rates 48-60 on his current regimen. He reports when he has chest discomfort it is frequently higher, in the mid 120s and he is taking extra metoprolol. Cannot rule out some concerns with tachycardia induced angina. Cardiology will evaluate for tachybradycardia syndrome. He is not a great candidate for amiodar one as there is been a concern that this is caused interstitial lung disease in the past. 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 Patient is refused CellCept therapy at this time. Status: Acute (4) CAD (coronary artery disease): Has known coronary disease, four-vessel, with significant intervention in February 2021 with LAD stenting as well as angioplasty to the first and second diagonal as well as circumflex. RCA did not have significant disease. Status: Acute Plan Multiple other medical problems as outlined in past medical history Full code at this time Heparin will suffice for DVT prophylaxis Attestations Medical Necessity Statement*: Patient requires hospitalization for NSTEMI, A. 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
--- NOTE | 2021-06-18 14:56 | PC.NURSE ---
Bedside report Report received from HERBERT Nguyen. Pt telemetry shows he converted to Sinus Bradycardia last night around 9pm w/a heart rate in low 50s Pt denies any chest pain,discomfort or squeezing pain in chest. [employer] informed.
--- NOTE | 2021-06-18 15:23 | PC.NURSE ---
ambulating down hallways since this morning Pt remains Sinus Bradycardia/ Sinus rhythm in upper 50s to 60s during activity. He denies any chest discomfort, pain or squeezing sensation during ambulation.
--- NOTE | 2021-06-18 18:00 | PC.NURSE ---
Shift Note Frequent safety and comfort rounds continue. Orders and/or nursing care completed as indicated. Patient monitored for response to intervention and treatment(s). Pt has been maintaining in Sinus rhythm today. Education provided includes ambulation and to report any chest discomfort during activity. Patient and/or provider relations representative verbalizes understanding. Will continue to monitor. Informed night nurse that pt was requesting an event monitor when he gets discharged. Informed pt and that event monitor will be fitted as an outpatient when an order from the doctor is received. they verbalizes understanding.
--- NOTE | 2021-06-18 19:34 | PC.NURSE ---
Received report from HERBERT Castellanos. Patient up walking in the estrella with portable telemetry in place. Patient denies pain or discomfort at this time. Instructed patient on eliquis. Patient verbalized complete understanding. No distress observed. Will continue to monitor.
[2021-06-18] MEDS: gabapentin 100 mg Capsule PO (20:26)
[2021-06-18] MEDS: atorvastatin 40 mg Tablet PO (20:26)
[2021-06-18] MEDS: apixaban 5 mg Tablet 2.5 MG PO (20:26)
[2021-06-19 00:42] VITALS: BP 144/54; PULSE 52; RESP 12
--- NOTE | 2021-06-19 01:24 | PC.NURSE ---
Patient up ambulating in halls several times. Patient stated, Dr. Chahal said I needed to walk more. Patient ambulating with portable telemetry. No indication of afib or other ectopy at this time. Will continue to monitor.
[2021-06-19 04:54] VITALS: BP 128/50; PULSE 50; RESP 18; TEMP 36.3; O2SAT 95
[2021-06-19 05:23] LABS: Basophils % 0.4 %; Eosinophils # 0.3 10^3/uL (0.0-0.8); Eosinophils % 3.7 %; Hematocrit 34.1 % (42.0-52.0); Hemoglobin 11.1 g/dL (11.7-16.6); Lymphocytes # 1.9 10^3/uL (0.8-4.8); Lymphocytes % 22.4 %; Mean Corpuscular HGB Conc 32.6 g/dL (30.0-36.0); Mean Corpuscular Hemoglobin 29.7 pg (28.0-34.0); Mean Corpuscular Volume 91.2 fl (80-94); Monocytes # 0.9 10^3/uL (0.2-0.9); Monocytes % 10.2 %; Neutrophils # 5.26 10^3/uL (1.8-7.7); Neutrophils % 62.9 %; Nucleated Red Blood Cells % 0 %; Platelet Count 148 10^3/cmm (130-400); Red Blood Count 3.74 10^6/uL (4.1-5.3); Red Cell Distribution Width 14.5 % (12.1-15.1); White Blood Count 8.4 10^3/uL (4.0-10.0)
[2021-06-19] MEDS: clopidogrel 75 mg Tablet PO (05:44)
[2021-06-19 05:50] LABS: Alanine Aminotransferase 8 U/L (0-41); Albumin Level 3.8 g/dL (3.5-5.2); Alkaline Phosphatase 69 IU/L (40-130); Anion Gap 15.5 (5-19); Aspartate Amino Transferase 14 U/L (0-40); Blood Urea Nitrogen 24 mg/dL (8-23); Calcium 8.9 mg/dL (8.5-10.5); Carbon Dioxide 21 mmol/L (22-29); Chloride 108 mmol/L (98-107); Globulin 2.9 g/dL (1.3-4.6); Glucose 92 mg/dL (65-115); Magnesium 2.1 mg/dL (1.7-2.3); Osmolality Calculated 296 mOsm/kg (285-295); Phosphorus 2.9 mg/dL (2.5-4.5); Potassium 3.5 mmol/L (3.5-5.1); Sodium 141 mmol/L (136-145); Total Bilirubin 0.6 mg/dL (0.15-1.2); Total Protein 6.7 g/dL (6.6-8.7)
[2021-06-19 05:55] VITALS: PULSE 49
--- NOTE | 2021-06-19 07:49 | P.PN_ITS ---
Subjective Subjective: Isaac is his usual quite self this morning. He was up and down in the halls all day yesterday without any chest pain. No chest pain this morning. Vitals/I&O/Wt Last Vital Signs Temp 97.4 F L 06/19/21 04:54 Pulse 49 L 06/19/21 05:55 Resp 18 06/19/21 04:54 BP 128/50 06/19/21 04:54 Pulse Ox 95 06/19/21 04:54 06/18/21 06/19/21 06/19/21 22:59 06:59 14:59 Intake Total 240 / 720 Output Total 350 / 500 275 / 775 Balance -110 / 220 -275 / -55 Physical Exam Narrative: GENERAL: He looks and feels well HEENT: Exam within normal limits. NECK: Supple without jugular vein distention. The carotid upstroke is normal without bruits. BACK: Exam normal. LUNGS: Clear. HEART: Regular rate and rhythm. ABDOMEN: Benign without organomegaly or tenderness. EXTREMITIES: No edema. NEUROLOGIC: Exam normal. SKIN: Unremarkable. Data : 06/19/21 04:00 06/19/21 04:00 A&P Assessment and plan (1) Essential hypertension: Status: Acute (2) Anticoagulation adequate with anticoagulant therapy: Status: Acute (3) Hyperlipidemia: Status: Acute (4) CKD (chronic kidney disease): Status: Acute Qualifiers: Chronic kidney disease stage: stage 3 (moderate) Chronic kidney disease stage 3 subtype: stage 3b (GFR 30-44) Qualified Code(s): N18.32 - Chronic kidney disease, stage 3b (5) Atrial fibrillation: Status: Acute (6) Non-ST elevation (NSTEMI) myocardial infarction: Status: Acute (7) Hypoxia: Status: Acute (8) CAD (coronary artery disease): Status: Acute (9) Sleep apnea: Status: Acute Qualifiers: Sleep apnea type: obstructive Qualified Code(s): G47.33 - Obstructive sleep apnea (adult) (pediatric) Plan Keep him out of atrial fibrillation he will not have chest pain. This is been his history for years. He went back into sinus rhythm after he arrived here and has since been free of any pain. I do not think it would be beneficial to perform angiography again. He just had angiography 3 months ago. We will get him an appointment to see Dr. Chaparro in 2 to 4 weeks. He request some form of monitor as an outpatient which I will leave to the primary care insole doubler. I also recommend that he continue with outpatient cardiac rehab. No changes in his medications. 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
[2021-06-19 07:59] VITALS: PULSE 67; RESP 16; O2SAT 93
[2021-06-19] MEDS: aspirin 81 mg EC Tablet PO (08:20)
[2021-06-19] MEDS: metoprolol tartrate 50 mg Tablet PO (08:20)
[2021-06-19] MEDS: pantoprazole DR 40 mg Tablet PO (08:21)
[2021-06-19] MEDS: apixaban 5 mg Tablet 2.5 MG PO (08:21)
[2021-06-19] MEDS: isosorbide mononitrate ER 60 mg Tablet PO (08:21)
[2021-06-19 08:54] VITALS: BP 150/64; PULSE 58; RESP 18; O2SAT 96
--- NOTE | 2021-06-19 09:49 | P.DS_ITS ---
Discharge Providers Date of Admission: 06/17/21 10:38 Date of Discharge: June 19, 2021 Attending Provider at Admission: Syed Perales MD Attending Provider at Discharge: Hermann Azar MD Primary Care Provider: Nikita Mosher MD Diagnoses at Discharge Discharge Diagnosis (1) Essential hypertension: Status: Acute (2) Anticoagulation adequate with anticoagulant therapy: Status: Acute (3) Hyperlipidemia: Status: Acute (4) CKD (chronic kidney disease): Status: Acute Qualifiers: Chronic kidney disease stage: stage 3 (moderate) Chronic kidney disease stage 3 subtype: stage 3b (GFR 30-44) Qualified Code(s): N18.32 - Chronic kidney disease, stage 3b (5) Atrial fibrillation: Status: Acute (6) Non-ST elevation (NSTEMI) myocardial infarction: Status: Acute (7) Hypoxia: Status: Acute (8) CAD (coronary artery disease): Status: Acute (9) Sleep apnea: Status: Acute Qualifiers: Sleep apnea type: obstructive Qualified Code(s): G47.33 - Obstructive sleep apnea (adult) (pediatric) Reason for Visit Reason for Visit: AFIB/Chest Pains Hospital Course Hospital Course This is a 81-year-old male with a past medical history of CAD, atrial fibrillation, on Eliquis, hypertension, hyperlipidemia, ischemic cardiomyopathy, hyperlipidemia, nonspecific interstitial pneumonia, patient presents Who presents [facility] for chest pain Patient presents [facility] for non-ST elevation NV, no recurrent chest pain during hospitalization, patient had elevated troponins, medically managed after discussion with cardiology, decision was made to pursue medical management rather than repeat angiography, he remained chest pain-free,, patient will be discharged with home Eliquis, statin, Plavix, aspirin, beta-sharri, Ranexa, Imdur with close follow-up with cardiology as outpatient Physical Exam Const: COMMON NORMALS: no acute distress and patient oriented x3 Resp: COMMON NORMALS: normal respiratory effort, No retractions, No use of accessory muscles and clear to auscultation bilaterally AUSCULTATION: clear to auscultation bilaterally Cardio: COMMON NORMALS: regular rate, S1 normal heart sound present and S2 normal heart sound present RATE: regular rate RHYTHM: abnormal rhythm HEART SOUNDS: S1 normal heart sound present and S2 normal heart sound present GI: COMMON NORMALS: Normal to inspection, nondistended, normoactive bowel sounds present, Soft to palpation, non-tender and No hepatosplenomegaly present PALPATION: Yes Soft to palpation and Yes No hepatosplenomegaly present Extremity: COMMON NORMALS: no pedal edema Neuro: COMMON NORMALS: patient oriented x3 Psych: COMMON NORMALS: mental status grossly normal Discharge Data Studies Completed and Pending Completed Studies During Hospitalization Category Date Time Status XR chest 1V portable [id number] Stat Exams 06/17/21 06:44 Completed Pending at discharge Category Date Time Status Complete Blood Count w/Auto AM LABS Lab 06/20/21 04:00 Ordered Complete Blood Count w/Auto AM LABS Lab 06/21/21 04:00 Ordered Comprehensive Metabolic Panel AM LABS Lab 06/20/21 04:00 Ordered Comprehensive Metabolic Panel AM LABS Lab 06/21/21 04:00 Ordered Magnesium AM LABS Lab 06/20/21 04:00 Ordered Magnesium AM LABS Lab 06/21/21 04:00 Ordered Phosphorus AM LABS Lab 06/20/21 04:00 Ordered Phosphorus AM LABS Lab 06/21/21 04:00 Ordered Radiology Impressions Chest X-Ray 06/17/21 06:44 IMPRESSION: 1. Mild cardiac enlargement. No acute cardiopulmonary finding. Laboratory Results WBC 8.4 10^3/uL (4.0-10.0) 06/19/21 04:00 RBC 3.74 10^6/uL (4.1-5.3) L 06/19/21 04:00 Hgb 11.1 g/dL (11.7-16.6) L 06/19/21 04:00 Hct 34.1 % (42.0-52.0) L 06/19/21 04:00 MCV 91.2 fl (80-94) 06/19/21 04:00 MCH 29.7 pg (28.0-34.0) 06/19/21 04:00 MCHC 32.6 g/dL (30.0-36.0) 06/19/21 04:00 RDW 14.5 % (12.1-15.1) 06/19/21 04:00 Plt Count 148 10^3/cmm (130-400) 06/19/21 04:00 MPV 12.0 fL (7.4-10.4) H 06/19/21 04:00 Neut % (Auto) 62.9 % 06/19/21 04:00 Lymph % (Auto) 22.4 % 06/19/21 04:00 Brooke % (Auto) 10.2 % 06/19/21 04:00 Eos % (Auto) 3.7 % 06/19/21 04:00 Baso % (Auto) 0.4 % 06/19/21 04:00 Neut # (Auto) 5.26 10^3/uL (1.8-7.7) 06/19/21 04:00 Lymph # (Auto) 1.9 10^3/uL (0.8-4.8) 06/19/21 04:00 Brooke # (Auto) 0.9 10^3/uL (0.2-0.9) 06/19/21 04:00 Eos # (Auto) 0.3 10^3/uL (0.0-0.8) 06/19/21 04:00 Baso # (Auto) 0.0 10^3/uL (0.0-0.1) 06/19/21 04:00 Nucleated RBC % (auto) 0 % 06/19/21 04:00 Nucleated RBCs # 0.0 /100WBC 06/19/21 04:00 PT 15.50 SECONDS (12.1-14.9) H 06/17/21 10:40 INR 1.20 (0.8-1.2) 06/17/21 10:40 APTT 158.6 SECONDS (23.9-36.7) H* D 06/17/21 16:31 Sodium 141 mmol/L (136-145) 06/19/21 04:00 Potassium 3.5 mmol/L (3.5-5.1) 06/19/21 04:00 Chloride 108 mmol/L (98-107) H 06/19/21 04:00 Carbon Dioxide 21 mmol/L (22-29) L 06/19/21 04:00 Anion Gap 15.5 (5-19) 06/19/21 04:00 BUN 24 mg/dL (8-23) H 06/19/21 04:00 Creatinine 1.5 mg/dL (0.7-1.2) H 06/19/21 04:00 GFR Calculation Not Reportable 06/19/21 04:00 Glucose 92 mg/dL (65-115) 06/19/21 04:00 Calculated Osmolality 296 mOsm/kg (285-295) H 06/19/21 04:00 Calcium 8.9 mg/dL (8.5-10.5) 06/19/21 04:00 Phosphorus 2.9 mg/dL (2.5-4.5) 06/19/21 04:00 Magnesium 2.1 mg/dL (1.7-2.3) 06/19/21 04:00 Total Bilirubin 0.6 mg/dL (0.15-1.2) 06/19/21 04:00 AST 14 U/L (0-40) 06/19/21 04:00 ALT 8 U/L (0-41) 06/19/21 04:00 Alkaline Phosphatase 69 IU/L (40-130) 06/19/21 04:00 Troponin T Baseline 29 ng/L (0-15) H 06/17/21 06:39 Troponin T 120 Minute 38.57 ng/L (0-15) H 06/17/21 08:48 Delta Troponin T 9.57 ABS# (0-10) 06/17/21 08:48 Troponin T Hi Sens 6Hr 54.30 ng/L (0-15) H 06/17/21 12:41 Troponin T Hi Sens 6Hr Delta 25.30 ng/L (0-12) H* 06/17/21 12:41 Total Protein 6.7 g/dL (6.6-8.7) 06/19/21 04:00 Albumin 3.8 g/dL (3.5-5.2) 06/19/21 04:00 Globulin 2.9 g/dL (1.3-4.6) 06/19/21 04:00 Lipase 28 U/L (13-60) 06/17/21 06:39 Vitals Last Vital Signs Temp 97.4 F L 06/19/21 04:54 Pulse 58 L 06/19/21 08:54 Resp 18 06/19/21 08:54 BP 150/64 06/19/21 08:54 Pulse Ox 96 06/19/21 08:54 Discharge Plan Discharge Patient Disposition: Home Condition: Stable Prescriptions: New aspirin 81 mg Tablet,Delayed Release (Dr/Ec) 81 mg PO DAILY 30 Days Qty: 30 0RF Continued pantoprazole 40 mg tablet,delayed release (DR/EC) 40 mg PO BID 0RF saw palmetto 450 mg capsule 450 mg PO BID 0RF Rx Instructions: give with food (meal/snack) Eliquis 5 mg tablet 2.5 mg PO BID 0RF ranolazine 500 mg tablet extended release 12 hr 500 mg PO BID Qty: 180 3RF metoprolol tartrate 50 mg tablet 50 mg PO BID Qty: 180 3RF multivitamin Tablet 1 tab PO DAILY 0RF atorvastatin 40 mg tablet 40 mg PO BEDTIME 0RF magnesium 250 mg Tablet 250 mg PO DAILY 0RF nitroglycerin 0.4 mg tablet, sublingual 0.4 mg sublingual Q5M PRN (Reason: chest pains) 0RF Rx Instructions: max 3 tabs per episode gabapentin 100 mg Capsule 100 mg PO BEDTIME 0RF polyethylene glycol 3350 [Miralax] 17 gram Powder In Packet 17 g PO QAM 0RF vitamin B complex Tablet 1 tab PO DAILY 0RF fluticasone propionate 50 mcg/actuation Rossiter,Suspension 2 spray INTRANASAL DAILY PRN (Reason: Allergy Symptoms) 0RF isosorbide mononitrate 120 mg tablet extended release 24 hr 60 mg PO QAM 0RF Artificial Tears (cmc) 1 % Drops 1 drp ophthalmic (eye) BID 0RF Rx Instructions: each eye clopidogrel 75 mg tablet 75 mg PO QAM 0RF Discharge Orders: Discharge Order (Routine); Ordered 06/19/21 Ordered By: Hermann Azar Referrals: Garcia Chaparro M.D [Physician] - 1 month ([facility] will contact you to schedule an follow-up appointment in 1 month. If you haven't heard from them by Sunday. Please call ) Nikita Mosher MD [Primary Care Provider] - ([facility] will contact you to schedule an follow-up appointment in 4 to 7 days. If you haven't heard from them by Sunday. Please call ) Discharge Diet: Cardiac Discharge Activity: Resume usual activity Patient Instructions: Aspirin (By mouth), A-fib (Atrial Fibrillation) (DC), Chronic Kidney Disease (DC), Hypertension (DC), Hyperlipidemia (DC), Opioid Safety Activity Restrictions/Additional Instructions: Okay to participate in cardiac rehab as scheduled Discharge Attestations Time Spent in Discharge Care*: less than 30 min Quality Metrics Clinical Quality Measures [ No reported AMI, CVA or VTE this stay] Coding Level of Care Code Acute Chg FW DC note Diagnoses Essential hypertension I10 Anticoagulation adequate with anticoagulant therapy Z79.01 Hyperlipidemia E78.5 CKD (chronic kidney disease) N18.32 Chronic kidney disease stage: stage 3 (moderate) Chronic kidney disease stage 3 subtype: stage 3b (GFR 30-44) Atrial fibrillation I48.91 Non-ST elevation (NSTEMI) myocardial infarction I21.4 Hypoxia R09.02 CAD (coronary artery disease) I25.10 Sleep apnea G47.33 Sleep apnea type: obstructive
[2021-06-19 10:18] VITALS: BP 150/64; PULSE 58; RESP 18; O2SAT 96
--- NOTE | 2021-06-19 12:35 | PC.NURSE ---
Discharge Note Patient discharged to home via wheelchair accompanied by spouse. Discharge instructions reviewed with patient and/or special service representative. Mobile pharmacy medications and/or prescriptions provided. Belongings/home medications returned.
== END 2021-06-19 10:51 | disposition home health service (06) | DRG 282 ==
LOC: ER 10:38 → CSU 14:32
PROVIDERS: Admitting Provider Internal Medicine; Emergency Provider Emergency Medicine; PCP Family Medicine; Visit Provider Family Medicine
DX: I21.4 Non-ST elevation (NSTEMI) myocardial infarction (principal); J84.89 Other specified interstitial pulmonary diseases; I25.110 Atherosclerotic heart disease of native coronary artery with unstable angina pectoris; I48.91 Unspecified atrial fibrillation; I12.9 Hypertensive chronic kidney disease with stage 1 through stage 4 chronic kidney disease, or unspecified chronic kidney disease; N18.32 Chronic kidney disease, stage 3b; E78.5 Hyperlipidemia, unspecified; G47.33 Obstructive sleep apnea (adult) (pediatric); I25.5 Ischemic cardiomyopathy; M32.9 Systemic lupus erythematosus, unspecified; K21.9 Gastro-esophageal reflux disease without esophagitis; R09.02 Hypoxemia; Z79.01 Long term (current) use of anticoagulants; Z95.5 Presence of coronary angioplasty implant and graft; Z79.02 Long term (current) use of antithrombotics/antiplatelets; Z87.891 Personal history of nicotine dependence; Z86.16 Personal history of COVID-19; Z86.73 Personal history of transient ischemic attack (TIA), and cerebral infarction without residual deficits; Z82.49 Family history of ischemic heart disease and other diseases of the circulatory system
CPT/HCPCS: 36415; 71045; 80048; 80053; 83690; 83735; 84100; 84484; 85025; 85610; 85730; 93005; 93798; 96365; 96366; 96372; 96375; 99285; J1644; J1650

== ENCOUNTER 2021-06-17 08:56 | Outpatient (RCR) | payer MEDICARE, OTHER, SELFPAY | END 2021-07-16 23:59 | disposition home or self-care (01) | LOC: CR 08:56 | PROVIDERS: PCP Family Medicine; Referring Provider Family Medicine; Visit Provider Family Medicine | DX: Z95.5 Presence of coronary angioplasty implant and graft (principal) | CPT/HCPCS: 93798 ==

== ENCOUNTER 2021-07-18 09:41 | Outpatient (RCR) | payer MEDICARE, OTHER, SELFPAY | END 2021-08-16 23:59 | disposition home or self-care (01) | LOC: CR 09:41 | PROVIDERS: PCP Family Medicine; Referring Provider Family Medicine; Visit Provider Family Medicine | DX: I48.0 Paroxysmal atrial fibrillation (principal); I25.10 Atherosclerotic heart disease of native coronary artery without angina pectoris | CPT/HCPCS: 93798 ==

== ENCOUNTER → 2021-07-21 13:09 | Outpatient (BNVA) | payer MEDICARE, OTHER, SELFPAY | PROVIDERS: PCP Family Medicine; Visit Provider Internal Medicine Cardiovascular Disease | DX: I48.91 Unspecified atrial fibrillation (principal); I25.10 Atherosclerotic heart disease of native coronary artery without angina pectoris; Z79.01 Long term (current) use of anticoagulants; I12.9 Hypertensive chronic kidney disease with stage 1 through stage 4 chronic kidney disease, or unspecified chronic kidney disease; N18.32 Chronic kidney disease, stage 3b; G47.33 Obstructive sleep apnea (adult) (pediatric); Z87.891 Personal history of nicotine dependence | CPT/HCPCS: 99213; 99214 ==

== ENCOUNTER → 2021-08-04 13:04 | Outpatient (BNVA) | payer MEDICARE, OTHER, SELFPAY | PROVIDERS: PCP Family Medicine; Visit Provider Internal Medicine Pulmonary Disease | DX: J84.89 Other specified interstitial pulmonary diseases (principal); R93.89 Abnormal findings on diagnostic imaging of other specified body structures; G47.33 Obstructive sleep apnea (adult) (pediatric); I48.91 Unspecified atrial fibrillation; Z87.891 Personal history of nicotine dependence; E78.5 Hyperlipidemia, unspecified | CPT/HCPCS: 99214 ==

== ENCOUNTER 2021-08-17 14:09 | Outpatient (RCR) | payer MEDICARE, OTHER, SELFPAY | END 2021-09-15 23:59 | disposition home or self-care (01) | LOC: CR 14:09 | PROVIDERS: PCP Family Medicine; Referring Provider Family Medicine; Visit Provider Family Medicine | DX: I25.10 Atherosclerotic heart disease of native coronary artery without angina pectoris (principal); I48.91 Unspecified atrial fibrillation | CPT/HCPCS: 93798 ==

== ENCOUNTER 2021-08-21 06:55 | Emergency (ER) | payer MEDICARE, OTHER, SELFPAY ==
[2021-08-21 07:14] VITALS: BP 131/88; PULSE 116; RESP 18; TEMP 36.9; O2SAT 95; BMI 23.5
--- NOTE | 2021-08-21 07:22 | ECG_ITS ---
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 Measurements Intervals [place] Rate: 94 P: AK: QRS: 57 QRSD: 109 T: -15 QT: 400 QTc: 501 Interpretive Statements ATRIAL FIBRILLATION/flutter ST DEVIATION AND MODERATE T-WAVE ABNORMALITY, CONSIDER LATERAL ISCHEMIA [-0.1+ mV T-WAVE IN I/aVL/V5/V6] Compared to ECG 06/17/2021 12:49:26 Intraventricular conduction delay no longer present T-wave abnormality still present Possible ischemia still present Electronically Signed On 08-21-2021 9:23:55 CDT by Asael Chahal M.D. [id number]
--- NOTE | 2021-08-21 07:22 | XRR_ITS ---
PROCEDURE INFORMATION: Exam: XR Chest Exam date and time: 08/21/2021 7:45 AM Age: 81 years old Clinical indication: Chest pain and atrial fibrillation. TECHNIQUE: Imaging protocol: XR of the chest. Views: 1 view. COMPARISON: CR XR chest 1V portable [id number] 06/17/2021 6:50 AM FINDINGS: Lungs: There is probable left basilar consolidation that could reflect pneumonia. Subsegmental atelectasis or scarring in the mid right chest. Pleural spaces: No pleural effusion. No pneumothorax. Heart/Mediastinum: The cardiac silhouette is approximately unchanged. No gross evidence of pneumomediastinum. Bones/joints: No gross fracture. Cervical hardware is poorly assessed. XR/XR chest 1V portable [id number] IMPRESSION: 1. Probable left basilar consolidation that could reflect pneumonia. Consider CT to better characterize. 2. Persistent cardiomegaly.
--- NOTE | 2021-08-21 07:27 | W.ED.CHESTPA ---
HPI - Chest Pain General: Chief Complaint: Chest Pain Stated Complaint: AFIB Time Seen by Provider: 08/21/21 07:27 Source: patient Mode of arrival: ambulatory Limitations: no limitations History of Present Illness: 81-year-old male who states that he woke up this morning at 4 AM with chest pain. Patient states that the pain is pressure type pain in the center of his chest currently 2 out of 10 he did take nitro at home with improvement. He has a history of heart disease had a stent placed back in February he is currently on antibiotics for pneumonia. He states his cough and shortness of breath is improved he is having none currently denies any abdominal pain. Associated symptoms: Deny abdominal pain, dyspnea, fever(s), nausea or vomiting Review of Systems Const: Denies: fever(s), chills, body aches or change in appetite Eyes: Denies: blurry vision or eye discomfort ENMT: Denies: throat pain or dental pain Card: Reports: chest pain Resp: Denies: dyspnea GI: Denies: abdominal pain, nausea, vomiting or diarrhea : Denies: dysuria Musc: Denies: neck pain or back pain Skin/Breast: Denies: rash Neuro: Denies: headache(s) Psych: Denies: depression Ever/Lymph: Denies: easy bruising All/Imm: Denies: urticaria PFSH ED PFSH: Medical History Anticoagulation adequate with anticoagulant therapy Atherosclerotic heart disease of [place] coronary artery with unstable angina pectoris Last echocardiogram EF 50%, mild mitral and atrial regurgitation February 2021 Atrial fibrillation CAD (coronary artery disease) Cervical stenosis of spinal canal Cervical stenosis of spinal canal CKD (chronic kidney disease) COVID-19 resolved, Mar 2020 Dyslipidemia Essential hypertension GERD (gastroesophageal reflux disease) Ground glass opacity present on imaging of lung History of nonmelanoma skin cancer Hyperlipidemia Inflammatory arthritis Ischemic cardiomyopathy NSIP (nonspecific interstitial pneumonia) NSTEMI (non-ST elevated myocardial infarction) Peripheral neuropathy SLE (systemic lupus erythematosus related syndrome) Sleep apnea TIA (transient ischemic attack) Surgical History History of coronary angiogram History of neck surgery History of shoulder surgery History of surgery on wrist Family History Other CAD (coronary artery disease) Diabetes Hypertension Denies family history of Rheumatoid arthritis Lupus Lung disease Cancer Stroke Social History Smoking and tobacco status: former smoker Quit status (tobacco): has quit using tobacco Year quit tobacco: 1959 Former quit date comment: Hx of 1 PPD x 10 Years Second hand smoke exposure: No Smoking risk assessment/counseling performed?: Yes Alcohol intake: never Counseling given: No Counseling given: No Lives independently: Yes Household members: spouse Marital status: service: Yes Current occupational status: retired Pets and animals: No History of recent travel: No Current gender identity: Male Physical Exam Const: COMMON NORMALS: patient oriented x3 HENMT: COMMON NORMALS: normocephalic and atraumatic HEAD & SCALP: normocephalic and atraumatic Eye: COMMON NORMALS: Equal, round and reactive pupils present and EOMs intact bilaterally PUPIL: Yes Equal, round and reactive pupils present Neck/C-Spine: COMMON NORMALS: full ROM and supple Chest: COMMONS NORMALS: normal inspection of the chest and normal palpation of entire chest wall Resp: COMMON NORMALS: normal respiratory effort, No retractions, No use of accessory muscles and clear to auscultation bilaterally AUSCULTATION: clear to auscultation bilaterally Cardio: COMMON NORMALS: regular rate, regular rhythm and No murmurs present (Cardio) RATE: regular rate RHYTHM: regular rhythm GI: COMMON NORMALS: Normal to inspection, nondistended, normoactive bowel sounds present, Soft to palpation, non-tender and no masses PALPATION: Yes Soft to palpation Extremity: COMMON NORMALS: normal to inspection and full ROM Neuro: COMMON NORMALS: patient oriented x3, moves all extremities and no focal motor deficits Psych: COMMON NORMALS: mental status grossly normal, Normal thought process present and cooperative THOUGHT PROCESS: Normal thought process present Skin: COMMON NORMALS: no rashes or lesions noted and no wounds GENERAL SKIN EXAM: no rashes or lesions noted Course Vital Signs: Vital signs: Vital Signs Temperature 98.4 F 08/21/21 07:14 Pulse Rate 78 08/21/21 09:07 Respiratory Rate 11 L 08/21/21 09:07 Blood Pressure 140/75 08/21/21 09:07 Pulse Oximetry 93 08/21/21 09:07 MDM - Chest Pain Medical Decision Making Patient presents here with chest pain that is atypical in nature patient's blood work EKGs here are all normal patient is felt improved here as well. Patient is to follow-up with his PCP and return if worsening he understands and agrees to plan. Lab Data : 08/21/21 07:34 08/21/21 07:34 Radiology Impressions Chest X-Ray 08/21/21 07:22 IMPRESSION: 1. Probable left basilar consolidation that could reflect pneumonia. Consider CT to better characterize. 2. Persistent cardiomegaly. Laboratory Results WBC 10.6 10^3/uL (4.0-10.0) H 08/21/21 07:34 RBC 4.40 10^6/uL (4.1-5.3) 08/21/21 07:34 Hgb 13.3 g/dL (11.7-16.6) 08/21/21 07:34 Hct 39.6 % (42.0-52.0) L 08/21/21 07:34 MCV 90.0 fl (80-94) 08/21/21 07:34 MCH 30.2 pg (28.0-34.0) 08/21/21 07:34 MCHC 33.6 g/dL (30.0-36.0) 08/21/21 07:34 RDW 15.9 % (12.1-15.1) H 08/21/21 07:34 Plt Count 221 10^3/cmm (130-400) 08/21/21 07:34 MPV 11.2 fL (7.4-10.4) H 08/21/21 07:34 Neut % (Auto) 78.2 % 08/21/21 07:34 Lymph % (Auto) 12.2 % 08/21/21 07:34 [place] % (Auto) 7.6 % 08/21/21 07:34 Eos % (Auto) 1.1 % 08/21/21 07:34 Baso % (Auto) 0.4 % 08/21/21 07:34 Neut # (Auto) 8.31 10^3/uL (1.8-7.7) H 08/21/21 07:34 Lymph # (Auto) 1.3 10^3/uL (0.8-4.8) 08/21/21 07:34 [place] # (Auto) 0.8 10^3/uL (0.2-0.9) 08/21/21 07:34 Eos # (Auto) 0.1 10^3/uL (0.0-0.8) 08/21/21 07:34 Baso # (Auto) 0.0 10^3/uL (0.0-0.1) 08/21/21 07:34 Nucleated RBC % (auto) 0 % 08/21/21 07:34 Nucleated RBCs # 0.0 /100WBC 08/21/21 07:34 Sodium 137 mmol/L (136-145) 08/21/21 07:34 Potassium 4.1 mmol/L (3.5-5.1) 08/21/21 07:34 Chloride 101 mmol/L (98-107) 08/21/21 07:34 Carbon Dioxide 22 mmol/L (22-29) 08/21/21 07:34 Anion Gap 18.1 (5-19) 08/21/21 07:34 BUN 26 mg/dL (8-23) H 08/21/21 07:34 Creatinine 1.5 mg/dL (0.7-1.2) H 08/21/21 07:34 GFR Calculation Not Reportable 08/21/21 07:34 Glucose 121 mg/dL (65-115) H 08/21/21 07:34 Calculated Osmolality 290 mOsm/kg (285-295) 08/21/21 07:34 Calcium 9.2 mg/dL (8.5-10.5) 08/21/21 07:34 Total Bilirubin 0.8 mg/dL (0.15-1.2) 08/21/21 07:34 AST 21 U/L (0-40) 08/21/21 07:34 ALT 10 U/L (0-41) 08/21/21 07:34 Alkaline Phosphatase 79 IU/L (40-130) 08/21/21 07:34 Troponin T Baseline 25 ng/L (0-15) H 08/21/21 07:34 Troponin T 120 Minute 28.52 ng/L (0-15) H 08/21/21 09:25 Delta Troponin T 3.52 ABS# (0-10) 08/21/21 09:25 NT-Pro-B Natriuret Pep 8702 pg/mL (0-450) H 08/21/21 07:34 Total Protein 8.9 g/dL (6.6-8.7) H 08/21/21 07:34 Albumin 4.5 g/dL (3.5-5.2) 08/21/21 07:34 Globulin 4.4 g/dL (1.3-4.6) 08/21/21 07:34 EKG Data EKG 1: I personally reviewed and interpreted this EKG as follows: EKG interpretation date: 08/21/21 EKG interpretation time: 07:20 Interpretation: atrial fib hr [address] elevation qrs 119 qtc 437 EKG 2: I personally reviewed and interpreted this EKG as follows: EKG interpretation date: 08/21/21 EKG interpretation time: 07:33 Interpretation: afib hr [address] elevatin qrs 109 qtc 452 EKG 3: I personally reviewed and interpreted this EKG as follows: EKG interpretation date: 08/21/21 EKG interpretation time: 09:19 Interpretation: afib hr [address] elevation qrs 117 qtc 459 Discharge Plan Discharge Patient Disposition: Home Clinical Impression: Chest pain Condition: Stable Prescriptions: No Action pantoprazole 40 mg tablet,delayed release (DR/EC) 40 mg PO BID 0RF saw palmetto 450 mg capsule 450 mg PO BID 0RF Rx Instructions: give with food (meal/snack) Eliquis 5 mg tablet 2.5 mg PO BID 0RF aspirin [Adult Aspirin Regimen] 81 mg tablet,delayed release (DR/EC) 81 mg PO DAILY 0RF ranolazine 500 mg tablet extended release 12 hr 500 mg PO BID Qty: 180 3RF metoprolol tartrate 50 mg tablet 50 mg PO BID Qty: 180 3RF multivitamin Tablet 1 tab PO DAILY 0RF atorvastatin 40 mg tablet 40 mg PO BEDTIME 0RF magnesium 250 mg Tablet 250 mg PO DAILY 0RF nitroglycerin 0.4 mg tablet, sublingual 0.4 mg sublingual Q5M PRN (Reason: chest pains) 0RF Rx Instructions: max 3 tabs per episode gabapentin 100 mg Capsule 100 mg PO BEDTIME 0RF polyethylene glycol 3350 [Miralax] 17 gram Powder In Packet 17 g PO QAM 0RF vitamin B complex Tablet 1 tab PO DAILY 0RF fluticasone propionate 50 mcg/actuation [place],Suspension 2 spray INTRANASAL DAILY PRN (Reason: Allergy Symptoms) 0RF isosorbide mononitrate 120 mg tablet extended release 24 hr 60 mg PO QAM 0RF Artificial Tears (cmc) 1 % Drops 1 drp ophthalmic (eye) BID 0RF Rx Instructions: each eye clopidogrel 75 mg tablet 75 mg PO QAM 0RF Discharge Orders: Discharge ED (Routine); Ordered 08/21/21 Ordered By: Serenity Sierra Referrals: Nikita Mosher MD [Primary Care Provider] - 1-3 days Discharge Diet: Advance as tolerated Discharge Activity: Resume usual activity Patient Instructions: Chest Pain (ED) Coding Level of Care Code ED Supervisor Cereal for Chg Fwd Exam Comprehensive
[2021-08-21 07:41] VITALS: BP 141/81; PULSE 88; RESP 19; O2SAT 95
[2021-08-21] MEDS: aspirin 81 mg Chew Tablet 324 MG PO (07:44)
--- NOTE | 2021-08-21 07:47 | PC.NURSE ---
ekg done at 0730 and shown to ER doctor
[2021-08-21 07:54] LABS: Basophils % 0.4 %; Eosinophils # 0.1 10^3/uL (0.0-0.8); Eosinophils % 1.1 %; Hematocrit 39.6 % (42.0-52.0); Hemoglobin 13.3 g/dL (11.7-16.6); Lymphocytes # 1.3 10^3/uL (0.8-4.8); Lymphocytes % 12.2 %; Mean Corpuscular HGB Conc 33.6 g/dL (30.0-36.0); Mean Corpuscular Hemoglobin 30.2 pg (28.0-34.0); Mean Platelet Volume 11.2 fL (7.4-10.4); Monocytes # 0.8 10^3/uL (0.2-0.9); Monocytes % 7.6 %; Neutrophils # 8.31 10^3/uL (1.8-7.7); Neutrophils % 78.2 %; Nucleated Red Blood Cells % 0 %; Platelet Count 221 10^3/cmm (130-400); Red Cell Distribution Width 15.9 % (12.1-15.1); White Blood Count 10.6 10^3/uL (4.0-10.0)
[2021-08-21 08:04] LABS: Troponin(5th) Baseline 25 ng/L (0-15)
[2021-08-21 08:13] LABS: Alanine Aminotransferase 10 U/L (0-41); Albumin Level 4.5 g/dL (3.5-5.2); Alkaline Phosphatase 79 IU/L (40-130); Blood Urea Nitrogen 26 mg/dL (8-23); Calcium 9.2 mg/dL (8.5-10.5); Carbon Dioxide 22 mmol/L (22-29); Chloride 101 mmol/L (98-107); Globulin 4.4 g/dL (1.3-4.6); Glucose 121 mg/dL (65-115); NT Pro B Type Natriuretic Pept 8702 pg/mL (0-450); Osmolality Calculated 290 mOsm/kg (285-295); Sodium 137 mmol/L (136-145); Total Bilirubin 0.8 mg/dL (0.15-1.2); Total Protein 8.9 g/dL (6.6-8.7)
[2021-08-21 08:22] VITALS: BP 134/79; PULSE 72; RESP 20; O2SAT 95
[2021-08-21 08:26] LABS: Anion Gap 18.1 (5-19); Potassium 4.1 mmol/L (3.5-5.1)
[2021-08-21 08:27] LABS: Aspartate Amino Transferase 21 U/L (0-40)
[2021-08-21 08:37] VITALS: BP 129/71; PULSE 79; RESP 16; O2SAT 94
--- NOTE | 2021-08-21 08:38 | PC.NURSE ---
PT placed on continuous NIBP, SpO2, and CM
[2021-08-21 09:07] VITALS: BP 140/75; PULSE 78; RESP 11; O2SAT 93
--- NOTE | 2021-08-21 09:22 | ECG_ITS ---
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 Measurements Intervals [place] Rate: 107 P: [place]: QRS: 61 QRSD: 117 T: 264 QT: 396 QTc: 529 Interpretive Statements ATRIAL FIBRILLATION WITH RAPID VENTRICULAR RESPONSE MODERATE INTRAVENTRICULAR CONDUCTION DELAY [110+ ms QRS DURATION] MINIMAL VOLTAGE CRITERIA FOR LVH, CONSIDER NORMAL VARIANT [MEETS CRITERIA IN ONE OF: R(aVL), S(V1), R(V5), R(V5/V6)+S(V1)] ST DEVIATION AND MODERATE T-WAVE ABNORMALITY, CONSIDER LATERAL ISCHEMIA [-0.1+ mV T-WAVE IN I/aVL/V5/V6] ST DEVIATION AND MODERATE T-WAVE ABNORMALITY, CONSIDER INFERIOR ISCHEMIA [-0.1+ mV T-WAVE IN II/aVF] Compared to ECG 08/21/2021 07:33:37 Intraventricular conduction delay now present T-wave abnormality still present Possible ischemia still present Electronically Signed On 08-21-2021 9:30:53 CDT by Asael Chahal M.D. [email or web address]
--- NOTE | 2021-08-21 09:27 | PC.NURSE ---
EKG done at 0920 and shown to ER doctor
[2021-08-21 09:47] LABS: Troponin 5 2HR 28.52 ng/L (0-15)
[2021-08-21 09:52] LABS: Troponin 5 2HR Delta 3.52 ABS# (0-10)
[2021-08-21 10:18] VITALS: BP 140/87; PULSE 95; RESP 19; O2SAT 95
--- NOTE | 2021-08-21 13:22 | ECG_ITS ---
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 Measurements Intervals [place] Rate: 85 P: [place]: QRS: 63 QRSD: 119 T: -8 QT: 395 QTc: 470 Interpretive Statements ATRIAL FLUTTER/TACHYCARDIA MODERATE INTRAVENTRICULAR CONDUCTION DELAY [110+ ms QRS DURATION] MARKED ST DEPRESSION, CONSIDER SUBENDOCARDIAL INJURY INTERPRETATION BASED ON A DEFAULT AGE OF 40 YEARS Compared to ECG 06/17/2021 12:49:26 ST (T wave) deviation now present Atrial fibrillation no longer present T-wave abnormality no longer present Electronically Signed On 08-21-2021 9:30:29 CDT by Asael Chahal M.D. [id number]
== END 2021-08-21 10:20 | disposition home or self-care (01) ==
PROVIDERS: Emergency Medicine; Emergency Provider Emergency Medicine; PCP Family Medicine
DX: R07.9 Chest pain, unspecified (principal); I48.91 Unspecified atrial fibrillation; I25.10 Atherosclerotic heart disease of native coronary artery without angina pectoris; I25.2 Old myocardial infarction; Z79.01 Long term (current) use of anticoagulants; Z79.82 Long term (current) use of aspirin; Z87.891 Personal history of nicotine dependence
CPT/HCPCS: 36415; 71045; 80053; 83880; 84484; 85025; 93005; 99284

== ENCOUNTER 2021-09-01 08:34 | Outpatient (CLI) | payer MEDICARE, OTHER, SELFPAY ==
--- NOTE | 2021-09-01 13:06 | PFTS_ITS ---
Date of Study:09/01/21 Date of Dictation: 09/01/2021 MECHANICS: Prebronchodilator forced vital capacity (FVC) is normal Prebronchodilator forced expiratory volume in one second (FEV1) is normal FEV1/FVC is reduced. There is no postbronchodilator study. FLOW VOLUME LOOP: Sloping of end expiratory limb suggestive of small airway obstruction. LUNG VOLUMES: Total lung capacity (TLC) is normal. Residual volume ( RV) is normal DIFFUSING CAPACITY FOR CARBON MONOXIDE: Mildly reduced 61 % . INTERPRETATION: The prebronchodilator spirometry is mild airflow obstruction.? Postbronchodilator study not performed. Lung volumes are normal. Gas transfer is mildly reduced.? Correlate clinically. MTDD
== END 2021-09-01 08:35 | disposition home or self-care (01) ==
LOC: RT 08:35
PROVIDERS: PCP Family Medicine; Visit Provider Internal Medicine Pulmonary Disease
DX: J84.89 Other specified interstitial pulmonary diseases (principal)
CPT/HCPCS: 94010; 94618; 94726; 94729

== ENCOUNTER 2021-09-16 14:51 | Outpatient (RCR) | payer SELFPAY | END 2021-10-16 23:59 | disposition home or self-care (01) | LOC: CR 14:51 | PROVIDERS: PCP Family Medicine; Referring Provider Family Medicine; Visit Provider Family Medicine | DX: Z95.5 Presence of coronary angioplasty implant and graft (principal) ==

== ENCOUNTER 2021-09-22 14:37 | Outpatient (CLI) | payer MEDICARE, OTHER, SELFPAY ==
--- NOTE | 2021-09-22 15:00 | CT_ITS ---
WS: [id number] CT CHEST WITHOUT INTRAVENOUS CONTRAST HISTORY: f/u lung opacity TECHNIQUE: Contiguous 5 mm axial imaging performed on the thorax. Coronal and sagittal reformats are submitted. All CT scans at [facility] use at least one of these dose optimization techniques: automated exposure control; mA and/or kV adjustment per patient size (includes targeted exams where dose is matched to clinical indication); or iterative reconstruction. CONTRAST: None DLP: 227.0 mGy.cm COMPARISON: 04/15/2021, 02/07/2021 Lungs and central airway: Mild pulmonary hyperexpansion. Stable nodule at the RIGHT apex. Very slight improvement since 02/07/2021 of the groundglass attenuation identified within the RIGHT upper, middl e and lower lobes. No groundglass attenuation in the LEFT lung. Pleura: Normal. No pleural effusion. Heart and pericardium: Moderately enlarged heart. Heavy calcification in the [place] coronary arteries . No effusion. Mediastinum and darcy: No mediastinum or hilar adenopathy. Vessels: Mild atherosclerosis aorta. Normal size pulmonary artery. Chest wall and lower neck: No soft tissue masses. Upper abdomen: Mildly atrophic kidneys as visualized. Stomach is moderately distended with food produ cts. No adrenal mass. Visualized liver is negative. Osseous structures: Moderate increase in thoracic kyphosis. CT/CT chest wo con [id number] IMPRESSION: 1. Focal areas of groundglass attenuation in the RIGHT middle, upper and lower lobes is thought very slightly improved since 04/15/2021. Continued follow-up r ecommended as these changes could represent a very low-grade neoplasm. No progr ession or adenopathy on today's exam. 2. Cardiomegaly and extensive coronary artery calcifications. 3. Emphysema.
== END 2021-09-22 14:38 | disposition home or self-care (01) ==
PROVIDERS: PCP Family Medicine; Visit Provider Internal Medicine Pulmonary Disease
DX: J43.8 Other emphysema (principal)
CPT/HCPCS: 71250

== ENCOUNTER → 2021-10-03 11:00 | Outpatient (BNVA) | payer MEDICARE, OTHER, SELFPAY | PROVIDERS: PCP Family Medicine; Visit Provider Internal Medicine Pulmonary Disease | DX: J84.89 Other specified interstitial pulmonary diseases (principal); R93.89 Abnormal findings on diagnostic imaging of other specified body structures; G47.33 Obstructive sleep apnea (adult) (pediatric); I48.91 Unspecified atrial fibrillation; Z87.891 Personal history of nicotine dependence | CPT/HCPCS: 99204 ==

== ENCOUNTER 2021-10-17 14:45 | Outpatient (RCR) | payer SELFPAY | END 2021-11-16 23:59 | disposition home or self-care (01) | LOC: CR 14:45 | PROVIDERS: PCP Family Medicine; Referring Provider Family Medicine; Visit Provider Family Medicine | DX: Z95.5 Presence of coronary angioplasty implant and graft (principal) ==

== ENCOUNTER → 2021-11-02 12:49 | Outpatient (BNVA) | payer MEDICARE, OTHER, SELFPAY | PROVIDERS: PCP Family Medicine; Visit Provider Internal Medicine | DX: I48.91 Unspecified atrial fibrillation (principal); Z79.01 Long term (current) use of anticoagulants; R07.9 Chest pain, unspecified; E78.5 Hyperlipidemia, unspecified; I25.10 Atherosclerotic heart disease of native coronary artery without angina pectoris; I12.9 Hypertensive chronic kidney disease with stage 1 through stage 4 chronic kidney disease, or unspecified chronic kidney disease; N18.9 Chronic kidney disease, unspecified; Z87.891 Personal history of nicotine dependence | CPT/HCPCS: 99213; 99214 ==

== ENCOUNTER 2021-11-07 17:52 | Observation (INO) | payer MEDICARE, OTHER, SELFPAY ==
[2021-11-07 18:09] VITALS: BP 133/59; PULSE 70; RESP 21; TEMP 36.9; O2SAT 96; BMI 23.5
--- NOTE | 2021-11-07 18:32 | W.ED.WEAKNES ---
HPI - Weakness General: Chief complaint: Weakness Stated complaint: stroke like Time Seen by Provider: 11/07/21 18:32 History of Present Illness: Mr. Blanco is an 81-year-old gentleman with complex past medical history including CAD with multiple PCI in the past, atrial fibrillation on anticoagulation, CKD, hypertension, hyperlipidemia who presents to the ER for generalized symptoms. He last felt well probably about 2 weeks ago and has had general decline since then. He endorses generalized body weakness and today had difficulty walking and was unable to hold himself up. He does endorse cough and nasal congestion. He was seen in clinic earlier and tested negative for COVID. Intensity symptoms is moderate to severe. Course has worsened. No other specific changes in health, exacerbating, or alleviating factors identified. Onset (ago): week(s) Duration: progressively worsening Severity: severe Exacerbating factors: movement and exertion Review of Systems General: Reports: 10 or more systems reviewed and unremarkable except in HPI and below PFSH ED PFSH: Medical History Acute viral syndrome Anticoagulation adequate with anticoagulant therapy Atherosclerotic heart disease of [place] coronary artery with unstable angina pectoris Last echocardiogram EF 50%, mild mitral and atrial regurgitation February 2021 Atrial fibrillation CAD (coronary artery disease) Cervical stenosis of spinal canal Cervical stenosis of spinal canal CKD (chronic kidney disease) COVID-19 resolved, Mar 2020 Dyslipidemia Essential hypertension GERD (gastroesophageal reflux disease) Ground glass opacity present on imaging of lung History of nonmelanoma skin cancer Hyperlipidemia Inflammatory arthritis Ischemic cardiomyopathy NSIP (nonspecific interstitial pneumonia) NSTEMI (non-ST elevated myocardial infarction) Peripheral neuropathy SLE (systemic lupus erythematosus related syndrome) Sleep apnea TIA (transient ischemic attack) Surgical History History of coronary angiogram History of neck surgery History of shoulder surgery History of surgery on wrist Family History Other CAD (coronary artery disease) Diabetes Hypertension Denies family history of Rheumatoid arthritis Lupus Lung disease Cancer Stroke Social History Smoking and tobacco status: former smoker Quit status (tobacco): has quit using tobacco Year quit tobacco: 1959 Former quit date comment: Hx of 1 PPD x 10 Years Second hand smoke exposure: No Smoking risk assessment/counseling performed?: Yes Alcohol intake: never Counseling given: No Counseling given: No Lives independently: Yes Household members: spouse Marital status: service: Yes Current occupational status: retired Pets and animals: No History of recent travel: No Current gender identity: Male Physical Exam Const: COMMON NORMALS: patient oriented x3 and alert GENERAL APPEARANCE: cooperative and well developed HENMT: COMMON NORMALS: normocephalic and atraumatic HEAD & SCALP: normocephalic and atraumatic Eye: COMMON NORMALS: conjunctivae normal CONJUNCTIVA: Yes conjunctivae normal SCLERA: sclerae normal Neck/C-Spine: COMMON NORMALS: supple GENERAL: Yes trachea midline Resp: COMMON NORMALS: normal respiratory effort and clear to auscultation bilaterally EFFORT & INSPECTION: Yes able to speak in complete sentences AUSCULTATION: clear to auscultation bilaterally Cardio: COMMON NORMALS: regular rate and regular rhythm RATE: regular rate RHYTHM: regular rhythm GI: COMMON NORMALS: Soft to palpation PALPATION: Yes Soft to palpation and No Tenderness to palpation present (GI) Extremity: GENERAL: Yes normal exam except as noted and No edema Neuro: COMMON NORMALS: patient oriented x3, CN's II-XII intact bilaterally, moves all extremities, no focal motor deficits (Generalized weakness) and no sensory deficits noted SENSORIUM/ORIENTATION: Yes alert and No Orientation impaired Psych: COMMON NORMALS: mental status grossly normal and Normal thought process present THOUGHT PROCESS: Normal thought process present Course ED course: - Patient was seen and evaluated by me at bedside - Patient placed on cardiac monitors, IV access obtained - Initial evaluation notable for exam as above. Nonfocal however patient is generally weak - Labs and xrays personally interpreted by me. EKG notable for atrial fibrillation -Fluids given. Metoprolol for rate control. Analgesia given. - Labs notable for mild leukocytosis, normal hemoglobin. Metabolic panel similar to prior. Delta troponin negative. No UTI. Negative viral studies. - Imaging notable for no lobar consolidation or pneumothorax.Negative head and lumbar spine CT. - Upon serial reexamination after treatment the patient was not significantly improved - Based on patient history, evaluation, and testing as interpreted the most likely cause of the patient's condition is unclear generalized weakness and decline. Patient unable to perform ADLs. - The results of ED evaluation were discussed with the patient including prescriptions and/or symptomatic cares (if applicable) including appropriate and responsible use, followup plan, and return precautions. The patient verbalized understanding and felt safe for discharge. - Patient discharged in satisfactory condition. Note: Click bubbles or prepopulated carmen in note writing are used for assistance with data collection and billing and are inherently more limited than narrative and other text portions of this note. Please use narrative for additional clinical history and defer to narrative/free test for any case of contradictory information. If information appears in only free text or click bubble it should be considered present or absent as reported. Please contact note staff writer for clarifications of clinical information or contradictory information. MDM is a brief summary, contradictory or erroneous seeming information should be clarified and full note should be reviewed. Vital Signs: Vital signs: Vital Signs Temperature 98.3 F 11/08/21 17:45 Pulse Rate 59 L 11/08/21 17:45 Respiratory Rate 15 11/08/21 17:45 Blood Pressure 103/54 11/08/21 17:45 Pulse Oximetry 96 11/08/21 17:45 Oxygen Delivery Me thod 11/08/21 15:49 MDM - Weakness Medical Decision Making 81-year-old gentleman presenting with generalized illness. Etiology not clearly identified on ED evaluation. Admitted for further evaluation and management. Medical Records I reviewed the patient's medical records. Lab Data I reviewed the patient's lab results. : 11/08/21 01:52 11/08/21 01:52 Radiology Impressions Chest X-Ray 11/07/21 18:44 IMPRESSION: No acute findings. Head CT 11/07/21 18:44 IMPRESSION: Negative for acute intracranial abnormality. Lumbar Spine CT 11/07/21 22:39 IMPRESSION: 1. Negative for acute lumbar spine abnormality. 2. Mildly increased size of abdominal aortic aneurysm. Head MRI 11/08/21 10:08 IMPRESSION: 1. No acute infarct or hemorrhage. 2. Mild atrophy and small vessel ischemic disease. Laboratory Results WBC 14.3 10^3/uL (4.0-10.0) H 11/07/21 19:25 RBC 4.16 10^6/uL (4.1-5.3) 11/07/21 19:25 Hgb 12.4 g/dL (11.7-16.6) 11/07/21 19:25 Hct 38.9 % (42.0-52.0) L 11/07/21 19:25 MCV 93.5 fl (80-94) 11/07/21 19:25 MCH 29.8 pg (28.0-34.0) 11/07/21 19: MCHC 31.9 g/dL (30.0-36.0) 11/07/21 19:25 RDW 16.7 % (12.1-15.1) H 11/07/21 19:25 Plt Count 190 10^3/cmm (130-400) 11/07/21 19:25 MPV 11.4 fL (7.4-10.4) H 11/07/21 19:25 Neut % (Auto) 78.1 % 11/07/21 19: Lymph % (Auto) 9.7 % 11/07/21: [place] % (Auto) 11.4 % 11/07/21: Eos % (Auto) 0.1 % 11/07/21: Baso % (Auto) 0.1 % 11/07/21: Neut # (Auto) 11.12 10^3/uL (1.8-7.7) H 11/07/21 19:25 Lymph # (Auto) 1.4 10^3/uL (0.8-4.8) 11/07/21 19: [place] # (Auto) 1.6 10^3/uL (0.2-0.9) H 11/07/21 19:25 Eos # (Auto) 0.0 10^3/uL (0.0-0.8) 11/07/21: Baso # (Auto) 0.0 10^3/uL (0.0-0.1) 11/07/21: Nucleated RBC % (auto) 0 % 11/07/21: Nucleated RBCs # 0.0 /100WBC 11/07/21 19:25 ESR 37 mm/hr (0-10) H 11/07/21 19:25 Sodium 140 mmol/L (136-145) 11/07/21 19:55 Potassium 4.1 mmol/L (3.5-5.1) 11/07/21 19:55 Chloride 102 mmol/L (98-107) 11/07/21 19:55 Carbon Dioxide 22 mmol/L (22-29) 11/07/21 19:55 Anion Gap 20.1 (5-19) H 11/07/21 19:55 BUN 20 mg/dL (8-23) 11/07/21 19:55 Creatinine 1.4 mg/dL (0.7-1.2) H 11/07/21 19:55 GFR Calculation Not Reportable 11/07/21 19:55 Glucose 115 mg/dL (65-115) 11/07/21 19:55 Estimat Average Glucose 120 11/07/21 19:25 Hemoglobin A1c 5.8 % (4.0-6.0) 11/07/21 19:25 Calculated Osmolality 294 mOsm/kg (285-295) 11/07/21 19:55 Lactate 1.4 mmol/L (0.5-2.2) 11/07/21 19:45 Calcium 9.1 mg/dL (8.5-10.5) 11/07/21 19:55 Magnesium 2.0 mg/dL (1.7-2.3) 11/07/21 19:55 Total Bilirubin 1.0 mg/dL (0.15-1.2) 11/07/21 19:55 AST 20 U/L (0-40) 11/07/21 19:55 ALT 11 U/L (0-41) 11/07/21 19:55 Alkaline Phosphatase 78 U/L (40-130) 11/07/21 19:55 Troponin T Baseline 41 ng/L (0-15) H 11/07/21 19:55 C-Reactive Protein 57.0 mg/L (0.0-4.9) H 11/07/21 19:55 C-Reactive Protein 60.7 mg/L (0.0-4.9) H 11/07/21 19:55 NT-Pro-B Natriuret Pep 8309 pg/mL (0-450) H 11/07/21 19:55 Total Protein 7.7 g/dL (6.6-8.7) 11/07/21 19:55 Albumin 4.0 g/dL (3.5-5.2) 11/07/21 19:55 Globulin 3.7 g/dL (1.3-4.6) 11/07/21 19:55 Triglycerides 57 mg/dL (0-150) 11/07/21 19:55 Cholesterol 117 mg/dL (0-200) 11/07/21 19:55 LDL Cholesterol, Calc 59 mg/dL (50-129) 11/07/21 19: HDL Cholesterol 47 mg/dL (60-100) L 11/07/21 19:55 LDL/HDL Ratio 1.26 RATIO (0.00-3.22) 11/07/21 19: Cholesterol/HDL Ratio 2.49 mg/dL (1.0-5.00) 11/07/21 19:55 Procalcitonin 0.06 ng/mL (0-0.5) 11/07/21 19: Procalcitonin 0.07 ng/mL (0-0.5) 11/07/21 19: TSH 1.96 uIU/mL (0.27-4.20) 11/07/21 19: TSH 2.16 uIU/mL (0.27-4.20) 11/07/21 19:55 Urine Color Yellow (Yellow) 11/07/21 21:09 Urine Appearance Clear (CLEAR) 11/07/21 21:09 Urine pH 6.5 (5-7) 11/07/21 21:09 Ur Specific [place] 1.010 (1.005-1.030) 11/07/21 21:09 Urine Protein 1+ (Negative) H 11/07/21 21:09 Urine Glucose (UA) Norm (Normal) 11/07/21 21:09 Urine Ketones 1+ (Negative) H 11/07/21 21:09 Urine Blood Neg (Negative) 11/07/21 21:09 Urine Nitrate Negative (Negative) 11/07/21 21:09 Urine Bilirubin Neg (Negative) 11/07/21 21:09 Urine Urobilinogen Norm mg/dL (Negative) 11/07/21 21:09 Ur Leukocyte Esterase Negative (Negative) 11/07/21 21:09 Urine RBC 0-4 /hpf (0-2) H 11/07/21 21:09 Urine WBC None /hpf (0-5) 11/07/21 21:09 Ur Squamous Epith Cells 0-4 /hpf (0-5) H 11/07/21 21:09 Amorphous Sediment Not Reportable 11/07/21 21:09 Urine Bacteria None /hpf (NONE) 11/07/21 21:09 Nasal Influ A H1 2009 PCR Not detected (NOT DETECT) 11/07/21 21:09 Adenovirus (PCR) Not detected (NOT DETECT) 11/07/21 21:09 C. pneumoniae DNA (PCR) Not detected (NOT DETECT) 11/07/21 21:09 Coronavirus 229E (PCR) Not detected (NOT DETECT) 11/07/21 21:09 Human Metapneumovir PCR Not detected (NOT DETECT) 11/07/21 21:09 Influenza A (H1) PCR Not detected (NOT DETECT) 11/07/21 21:09 Influenza A (H3) PCR Not detected (NOT DETECT) 11/07/21 21:09 Influenza Type A (PCR) Not detected (NOT DETECT) 11/07/21 21:09 Influenza Type B (PCR) Not detected (NOT DETECT) 11/07/21 21:09 M. pneumoniae (PCR) Not detected (NOT DETECT) 11/07/21 21:09 Parainfluenza 1 (PCR) Not detected (NOT DETECT) 11/07/21 21:09 Parainfluenza 2 (PCR) Not detected (NOT DETECT) 11/07/21 21:09 Parainfluenza 3 (PCR) Not detected (NOT DETECT) 11/07/21 21:09 Parainfluenza 4 (PCR) Not detected (NOT DETECT) 11/07/21 21:09 RSV Type A (PCR) Not detected (NOT DETECT) 11/07/21 21:09 RSV Type B (PCR) Not detected (NOT DETECT) 11/07/21 21:09 Entero/Rhino (PCR) Not detected (NOT DETECT) 11/07/21 21:09 SARS-CoV-2 (PCR) Not detected (NOT DETECT) 11/07/21 21:09 Discharge Plan Discharge Patient Disposition: Placed in Observation Admit Provider: Hermann Azar Clinical Impression: Acute viral syndrome, Weakness, Unable to ambulate Discharge Diet: Regular Discharge Activity: Resume usual activity and Increase activity as tolerated Coding Level of Care Code ED Home Extension Agent for Eleazar Hargrove
--- NOTE | 2021-11-07 18:44 | CTR_ITS ---
PROCEDURE INFORMATION: Exam: CT Head Without Contrast Exam date and time: 11/07/2021 6:48 PM Age: 81 years old Clinical indication: Weakness, extremity; Bilateral; Additional info: AMS, difficulty walking, stroke like symptoms TECHNIQUE: Imaging protocol: Computed tomography of the head without contrast. Radiation optimization: All CT scans at this facility use at least one of these dose optimization techniques: automated exposure control; mA and/or kV adjustment per patient size (includes targeted exams where dose is matched to clinical indication); or iterative reconstruction. COMPARISON: CT head wo con* [id number] 02/10/2021 1:50 PM RADIATION DOSE METRICS: Total DLP (mGy-cm): 1052.48 FINDINGS: Brain: There is moderate cerebral atrophy. There is moderate diffuse heterogeneity of the white matter attenuation, consistent with chronic white matter ischemic changes. Negative for intracranial hemorrhage. Negative for space-occupying intracranial mass. No acute brain ischemia identified. Negative for midline shift of the brain. Cerebral ventricles: No ventriculomegaly. Paranasal sinuses: Visualized sinuses are unremarkable. No fluid levels. Mastoid air cells: Visualized mastoid air cells are well aerated. Bones/joints: Unremarkable. No acute fracture. Soft tissues: Unremarkable. CT/CT head wo con* [id number] IMPRESSION: Negative for acute intracranial abnormality.
--- NOTE | 2021-11-07 18:44 | XRR_ITS ---
PROCEDURE INFORMATION: Exam: XR Chest Exam date and time: 11/07/2021 7:00 PM Age: 81 years old Clinical indication: Cough TECHNIQUE: Imaging protocol: Radiologic exam of the chest. Views: 1 view. COMPARISON: CT chest wo con [id number] 09/22/2021 2:56 PM FINDINGS: Lungs: Unremarkable. No consolidation. Pleural spaces: Unremarkable. No pleural effusion. No pneumothorax. Heart/Mediastinum: Unremarkable. No cardiomegaly. Bones/joints: Unremarkable. XR/XR chest 1V portable [id number] IMPRESSION: No acute findings.
--- NOTE | 2021-11-07 19:09 | PC.NURSE ---
Patient report received, care assumed.
[2021-11-07 19:13] VITALS: BP 149/86; PULSE 88; RESP 18; O2SAT 96
[2021-11-07 19:37] LABS: Basophils % 0.1 %; Eosinophils % 0.1 %; Hematocrit 38.9 % (42.0-52.0); Hemoglobin 12.4 g/dL (11.7-16.6); Lymphocytes # 1.4 10^3/uL (0.8-4.8); Lymphocytes % 9.7 %; Mean Corpuscular HGB Conc 31.9 g/dL (30.0-36.0); Mean Corpuscular Hemoglobin 29.8 pg (28.0-34.0); Mean Corpuscular Volume 93.5 fl (80-94); Mean Platelet Volume 11.4 fL (7.4-10.4); Monocytes # 1.6 10^3/uL (0.2-0.9); Monocytes % 11.4 %; Neutrophils # 11.12 10^3/uL (1.8-7.7); Neutrophils % 78.1 %; Nucleated Red Blood Cells % 0 %; Platelet Count 190 10^3/cmm (130-400); Red Blood Count 4.16 10^6/uL (4.1-5.3); Red Cell Distribution Width 16.7 % (12.1-15.1); White Blood Count 14.3 10^3/uL (4.0-10.0)
[2021-11-07] MEDS: sodium chloride 0.9% 1,000 ML 999 ML IV (20:12)
[2021-11-07 20:14] LABS: Lactate (Lactic Acid level) 1.4 mmol/L (0.5-2.2)
[2021-11-07 20:25] LABS: Troponin(5th) Baseline 41 ng/L (0-15)
[2021-11-07 20:33] LABS: NT Pro B Type Natriuretic Pept 8309 pg/mL (0-450); Procalcitonin 0.06 ng/mL (0-0.5); Thyroid Stimulating Hormone 1.96 uIU/mL (0.27-4.20)
[2021-11-07 20:45] LABS: Alanine Aminotransferase 11 U/L (0-41); Alkaline Phosphatase 78 U/L (40-130); Blood Urea Nitrogen 20 mg/dL (8-23); C Reactive Protein 60.7 mg/L (0.0-4.9); Calcium 9.1 mg/dL (8.5-10.5); Carbon Dioxide 22 mmol/L (22-29); Chloride 102 mmol/L (98-107); Globulin 3.7 g/dL (1.3-4.6); Glucose 115 mg/dL (65-115); Osmolality Calculated 294 mOsm/kg (285-295); Sodium 140 mmol/L (136-145); Total Protein 7.7 g/dL (6.6-8.7)
--- NOTE | 2021-11-07 20:45 | ECG_ITS ---
[facility] Test Date: 2021-11-07 Pat Name: Isaac Blanco Department: Room: Gender: Male [employer]: : 1940 Requested By: Bo Interiano Order Number: [id number] Radha MD: Yessi Westbrook M.D. Measurements Intervals [place] Rate: 98 P: UT: QRS: 45 QRSD: 113 T: 181 QT: 374 QTc: 480 Interpretive Statements ATRIAL FIBRILLATION MODERATE INTRAVENTRICULAR CONDUCTION DELAY [110+ ms QRS DURATION] MINIMAL VOLTAGE CRITERIA FOR LVH, CONSIDER NORMAL VARIANT [MEETS CRITERIA IN ONE OF: R(aVL), S(V1), R(V5), R(V5/V6)+S(V1)] ST DEVIATION AND MODERATE T-WAVE ABNORMALITY, CONSIDER LATERAL ISCHEMIA [-0.1+ mV T-WAVE IN I/aVL/V5/V6] ST DEVIATION AND MODERATE T-WAVE ABNORMALITY, CONSIDER INFERIOR ISCHEMIA [-0.1+ mV T-WAVE IN II/aVF] Compared to ECG 08/21/2021 09:19:39 No significant changes Electronically Signed On 11-08-2021 7:27:57 CDT by Yessi Westbrook M.D. [email or web address]
[2021-11-07 20:57] LABS: Anion Gap 20.1 (5-19); Aspartate Amino Transferase 20 U/L (0-40); Potassium 4.1 mmol/L (3.5-5.1)
[2021-11-07 21:25] LABS: Urine Appearance Clear (CLEAR); Urine Color Yellow (Yellow)
[2021-11-07 21:26] LABS: Add Urine Microscopic? YES; Bilirubin Urine Neg (Negative); Blood Urine Neg (Negative); Glucose Urine UA Norm (Normal); Ketones Urine 1+ (Negative); Leukocyte Esterase Urine Negative (Negative); Nitrate Urine Negative (Negative); Protein Urine 1+ (Negative); Urobilinogen Urine Norm (Negative); pH Urine 6.5 (5-7)
[2021-11-07 21:29] LABS: Add Urine Culture? No; RBC Urine 0-4 /hpf (0-2); Squamous Epithelial Cell Urine 0-4 /hpf (0-5)
[2021-11-07 21:30] VITALS: BP 138/77; PULSE 102; RESP 22; O2SAT 95
[2021-11-07] MEDS: metoprolol tartrate 50 mg Tablet PO (21:32)
[2021-11-07] MEDS: acetaminophen 325 mg Tablet 650 MG PO (21:42)
[2021-11-07] MEDS: metoprolol tartrate 1 mg/1 mL SDV 5 mL 5 MG IVP (22:04)
--- NOTE | 2021-11-07 22:24 | PC.NURSE ---
Report called to Rachelle on med surg, patient will move to [phone] when ready
[2021-11-07 22:28] LABS: Troponin 5 2HR 41.29 ng/L (0-15)
--- NOTE | 2021-11-07 22:39 | CTR_ITS ---
PROCEDURE INFORMATION: Exam: CT Lumbar Spine Without Contrast Exam date and time: 11/07/2021 10:47 PM Age: 81 years old Clinical indication: Weakness; Additional info: Pain TECHNIQUE: Imaging protocol: Computed tomography of the lumbar spine without contrast. Radiation optimization: All CT scans at this facility use at least one of these dose optimization techniques: automated exposure control; mA and/or kV adjustment per patient size (includes targeted exams where dose is matched to clinical indication); or iterative reconstruction. COMPARISON: 1. CT chest abd pel w con* 03/19/2020 3:[address] thoracic spin wo con* [id number] 05/12/2020 1:55 PM RADIATION DOSE METRICS: Total DLP (mGy-cm): 443.42 FINDINGS: Bones/joints: No acute fracture. Normal alignment. Discs/Spinal canal/Neural foramina: The lumbar spine demonstrates moderate discogenic and apophyseal joint degenerative changes at multiple levels. Severe disc height loss at L5-S1. Pleural spaces: Bilateral pleural effusions are partially visible. Vasculature: Fusiform aneurysm of the distal abdominal aorta measures 4.4 cm greatest diameter. 4.0 cm diameter previously. Soft tissues: Unremarkable. CT/CT lumbar spine wo con* [id number] IMPRESSION: 1. Negative for acute lumbar spine abnormality. 2. Mildly increased size of abdominal aortic aneurysm.
--- NOTE | 2021-11-07 22:41 | PM.HP ---
Providers/Chief Complaint Primary Care Provider: Nikita Mosher MD Chief Complaint: stroke like History of Present Illness Isaac Blanco is a 81 year old male with a past medical history of CAD, atrial fibrillation, cervical stenosis, CKD, hyperlipidemia, NSIP, history of TIA, who presents [facility] due to generalized weakness, particularly bilateral extremity weakness, difficulty walking due to generalized weakness. Patient is alert to person, to place, not to time, he is tells me that he has dementia, he has been more forgetful recently, more confused, she suspects his underlying dementia, she does help significantly with the answer taking. He tells me that over the last few days he has been more weak, he has bilateral lower extremity weakness, and inability to ambulate due to his weakness, he also reports some trouble coordinating, no falls, he does complain of back pain which is new, does report urinary hesitancy, no dysuria, no hematuria, no saddle or perianal anesthesia, denies urinary continence, denies bowel incontinence. Does report headache, no blurry vision. Denies any slurring of words, no facial droop, no upper extremity weakness, he is taking his Eliquis as prescribed. His does tell me that he has been having episodes with A. fib with RVR, but at baseline he runs heart rates 50s to 60s. He has been having intermittent chest pain, he was seen here in the hospital a few months ago, treated for an NSTEMI, medically managed. He was seen by his primary care for concerns for possible fever, and urgent care he tested negative for COVID, here he tested negative for COVID, he denies any cough, he tells me he has low-grade fevers, Review of Systems Const: Denies: fever(s) Card: Reports: chest pain Resp: Denies: dyspnea or non-productive cough GI: Denies: abdominal pain : Denies: flank pain Musc: Reports: back pain and muscle weakness Neuro: Reports: weakness in extremities and difficulty walking; Denies: headache(s) or numbness in extremities Medications/Allergies Home Medications Medication Instructions Recorded Confirmed Last Taken Type saw palmetto 450 mg capsule 450 mg PO BID 08/21/19 11/07/21 11/07/21 History atorvastatin 40 mg tablet 40 mg PO BEDTIME 02/17/20 11/07/21 11/06/21 History magnesium 250 mg tablet 250 mg PO DAILY 02/17/20 11/07/21 11/07/21 History multivitamin 1 tab PO DAILY 02/17/20 11/07/21 11/07/21 History nitroglycerin 0.4 mg sublingual 0.4 mg sublingual Q5M PRN chest 02/17/20 11/07/21 06/17/21 History tablet pains pantoprazole 40 mg tablet,delayed 40 mg PO BID 09/27/20 11/07/21 11/07/21 History release gabapentin 100 mg capsule 100 mg PO BEDTIME 02/10/21 11/07/21 11/06/21 History polyethylene glycol 3350 17 gram 17 g PO QAM 02/27/21 11/07/21 11/07/21 History oral powder packet (Miralax) fluticasone propionate 50 2 spray intranasal DAILY PRN 03/04/21 11/07/21 03/15/21 History mcg/actuation nasal Allergy Symptoms spray,suspension vitamin B complex 1 tab PO DAILY 03/04/21 11/07/21 11/07/21 History ranolazine 500 mg tablet,extended 500 mg PO BID #180 tabs 03/28/21 11/07/21 11/07/21 Rx release,12 hr metoprolol tartrate 50 mg tablet 50 mg PO BID #180 tabs 04/29/21 11/07/21 11/07/21 Rx apixaban 5 mg tablet (Eliquis) 2.5 mg PO BID 05/03/21 11/07/21 11/07/21 History carboxymethylcellulose sodium 1 % 1 drp ophthalmic (eye) BID 06/17/21 11/07/21 11/07/21 History eye drops (Artificial Tears (carboxymethylcellulose)) clopidogrel 75 mg tablet 75 mg PO QAM 06/17/21 11/07/21 11/07/21 History aspirin 81 mg tablet,delayed 81 mg PO DAILY 08/04/21 11/07/21 11/07/21 History release (Adult Aspirin Regimen) ketoconazole 2 % shampoo 1 applic topical .2 x weekly #120 08/23/21 11/07/21 Unknown Rx mL ketoconazole 2 % topical cream 1 applic topical BID #30 grams 08/23/21 11/07/21 Unknown Rx isosorbide mononitrate 120 mg 120 mg PO QAM 10/03/21 11/07/21 11/07/21 History tablet,extended release 24 hr albuterol sulfate 90 mcg/actuation 1 inh inhalation QID PRN shortness 11/04/21 11/07/21 Unknown Rx aerosol inhaler (Ventolin HFA) of breath or wheezing #8.5 grams Allergies Allergy/AdvReac Type Severity Reaction Status Date / Time hydrocodone Allergy Severe Unknown Verified 11/07/21 19:17 codeine Allergy Unknown Unknown Verified 11/07/21 19:17 PFSH Acute PFSH: Medical History Anticoagulation adequate with anticoagulant therapy Atherosclerotic heart disease of enterprise coronary artery with unstable angina pectoris Last echocardiogram EF 50%, mild mitral and atrial regurgitation February 2021 Atrial fibrillation CAD (coronary artery disease) Cervical stenosis of spinal canal Cervical stenosis of spinal canal CKD (chronic kidney disease) COVID-19 resolved, Mar 2020 Dyslipidemia Essential hypertension GERD (gastroesophageal reflux disease) Ground glass opacity present on imaging of lung History of nonmelanoma skin cancer Hyperlipidemia Inflammatory arthritis Ischemic cardiomyopathy NSIP (nonspecific interstitial pneumonia) NSTEMI (non-ST elevated myocardial infarction) Peripheral neuropathy SLE (systemic lupus erythematosus related syndrome) Sleep apnea TIA (transient ischemic attack) Surgical History History of coronary angiogram History of neck surgery History of shoulder surgery History of surgery on wrist Family History Other CAD (coronary artery disease) Diabetes Hypertension Denies family history of Rheumatoid arthritis Lupus Lung disease Cancer Stroke Social History Smoking and tobacco status: former smoker Quit status (tobacco): has quit using tobacco Year quit tobacco: 1960 Former quit date comment: Hx of 1 PPD x 10 Years Second hand smoke exposure: No Smoking risk assessment/counseling performed?: Yes Alcohol intake: never Counseling given: No Counseling given: No Lives independently: Yes Household members: spouse Marital status: service: Yes Current occupational status: retired Pets and animals: No History of recent travel: No Current gender identity: Male Vitals/I&O/Wt Last Vital Signs Temp 98.4 F 11/07/21 18:09 Pulse 102 H 11/07/21 21:30 Resp 22 H 11/07/21 21:30 BP 138/77 11/07/21 21:30 Pulse Ox 95 11/07/21 21:30 O2 Del Method 11/07/21 21:30 11/07/21 11/07/21 11/07/21 06:59 14:59 22:59 Output Total 200 / 200 Balance -200 / -200 Weight last 48 hrs Weight 68.039 kg Physical Exam Const: COMMON NORMALS: no acute distress and patient oriented x3 Eye: COMMON NORMALS: Equal, round and reactive pupils present and EOMs intact bilaterally Resp: COMMON NORMALS: normal respiratory effort, No retractions, No use of accessory muscles and clear to auscultation bilaterally AUSCULTATION: clear to auscultation bilaterally Cardio: COMMON NORMALS: regular rate, regular rhythm, S1 normal heart sound present and S2 normal heart sound present RATE: regular rate RHYTHM: regular rhythm HEART SOUNDS: S1 normal heart sound present and S2 normal heart sound present GI: COMMON NORMALS: Normal to inspection, nondistended, normoactive bowel sounds present, Soft to palpation, non-tender and No hepatosplenomegaly present Extremity: COMMON NORMALS: no pedal edema Neuro: COMMON NORMALS: patient oriented x3, CN's II-XII intact bilaterally, moves all extremities, no focal motor deficits and no sensory deficits noted OTHER: Has bilateral currently weakness, abnormal [id number], abnormal [id number] Psych: COMMON NORMALS: mental status grossly normal Data : 11/07/21 19:25 11/07/21 19:55 Micro: Microbiology 11/07/21 20:29 Blood Culture - Preliminary Blood SPECIMEN COLLECTED 11/07/21 20:24 Blood Culture - Preliminary Blood SPECIMEN COLLECTED A&P Assessment and plan (1) Generalized weakness: Status: Acute (2) Unable to ambulate: Status: Acute (3) Essential hypertension: Status: Acute (4) Anticoagulation adequate with anticoagulant therapy: Status: Acute (5) Hyperlipidemia: Status: Acute (6) CKD (chronic kidney disease): Status: Acute Qualifiers: Chronic kidney disease stage: stage 3 (moderate) Chronic kidney disease stage 3 subtype: stage 3b (GFR 30-44) Qualified Code(s): N18.32 - Chronic kidney disease, stage 3b (7) Atrial fibrillation: Status: Acute (8) History of nonmelanoma skin cancer: Status: Acute Plan Generalized weakness, inability to ambulate -Etiology unclear at this time -No UTI -No focal pneumonia -No significant electrolyte abnormalities -Cardiovascular, his troponins are mildly elevated, he is being medically managed for CAD, on Eliquis, aspirin, statin, Plavix. We will order cardiac echo, serial EKGs, serial troponins, telemetry monitoring -On examination he does have bilateral extremity generalized weakness, no focal neurologic deficits, does have abnormal [id number]-[id number], and abnormal yjbx-[id number], but he is adamant that he is compliant with Eliquis, potentially cerebellar infarct however the CT of the head had no acute findings, might require an MRI -We will do carotid artery ultrasound -Does complain of back pain, inability to completely empty his bladder, no dysuria, hematuria, no urinary incontinence, bowel incontinence, no saddle or perianal anesthesia, will do a CT scan lumbar spine -He has lost 12 pounds due to poor appetite -PT OT, speech therapy eval -DNR/DNI -Eliquis for DVT prophylaxis Attestations Medical Necessity Statement*: Patient requires hospitalization for generalized weakness, inability to walk, outpatient with observation, Coding Level of Care Code Acute Board Certified Orthodontist for Chg Fwd Diagnoses Generalized weakness R53.1 Unable to ambulate R26.2 Essential hypertension I10 Anticoagulation adequate with anticoagulant therapy Z79.01 Hyperlipidemia E78.5 CKD (chronic kidney disease) N18.32 Chronic kidney disease stage: stage 3 (moderate) Chronic kidney disease stage 3 subtype: stage 3b (GFR 30-44) Atrial fibrillation I48.91 History of nonmelanoma skin cancer Z85.828
[2021-11-07 22:45] LABS: Troponin 5 2HR Delta 0.29 ABS# (0-10)
[2021-11-07 23:04] LABS: Adenovirus Not Detected (NOT DETECT); Chlamydia Pneumoniae Not Detected (NOT DETECT); Coronavirus 229E,HKU1,NL63,OC4 Not Detected (NOT DETECT); Human Metapneumovirus Not Detected (NOT DETECT); Human Rhinovirus/Enterovirus Not Detected (NOT DETECT); Influenza A Not Detected (NOT DETECT); Influenza A H1 Not Detected (NOT DETECT); Influenza A H1-2009 Not Detected (NOT DETECT); Influenza A H3 Not Detected (NOT DETECT); Influenza B Not Detected (NOT DETECT); Mycoplasma Pneumoniae Not Detected (NOT DETECT); Parainfluenza Virus Type 1 Not Detected (NOT DETECT); Parainfluenza Virus Type 2 Not Detected (NOT DETECT); Parainfluenza Virus Type 3 Not Detected (NOT DETECT); Parainfluenza Virus Type 4 Not Detected (NOT DETECT); Respiratory Syncytial Virus A Not Detected (NOT DETECT); Respiratory Syncytial Virus B Not Detected (NOT DETECT); SARS-COV-2 Not Detected (NOT DETECT)
[2021-11-07 23:13] LABS: Procalcitonin 0.07 ng/mL (0-0.5)
[2021-11-07 23:20] LABS: Erythrocyte Sedimentation Rate 37 mm/hr (0-10)
[2021-11-07 23:23] LABS: Estmated Average Glucose 120; Hemoglobin A1C 5.8 % (4.0-6.0)
[2021-11-07 23:30] VITALS: BP 105/64; PULSE 77; RESP 17; TEMP 36.7; O2SAT 95
[2021-11-07 23:31] VITALS: BP 105/64; PULSE 77; RESP 17; TEMP 36.7; O2SAT 95
[2021-11-07 23:51] VITALS: BP 124/73; PULSE 93; RESP 18; TEMP 36.9; O2SAT 96
[2021-11-08] VITALS (7 sets, daily range): BP systolic 91–121; BP diastolic 54–68; PULSE 59–98; RESP 15–18; TEMP 36.6–36.8; O2SAT 92–96
[2021-11-08 00:20] LABS: Chol HDL Ratio 2.49 mg/dL (1.0-5.00); Cholesterol 117 mg/dL (0-200); HDL Cholesterol 47 mg/dL (60-100); LDL Cholesterol Calculated 59 mg/dL (50-129); LDL HDL Ratio 1.26 RATIO (0.00-3.22); Thyroid Stimulating Hormone 2.16 uIU/mL (0.27-4.20); Triglycerides 57 mg/dL (0-150)
--- NOTE | 2021-11-08 00:45 | ECG_ITS ---
[facility] Test Date: 2021-11-08 Pat Name: Isaac Blanco Department: Room: 258 Gender: Male Photographic Specialist: : [id number] Requested By: Bo Interiano Order Number: [id number] Radha MD: Garcia Chaparro M.D. Measurements Intervals Marshall Rate: 85 P: WI: QRS: 25 QRSD: 114 T: 224 QT: 389 QTc: 465 Interpretive Statements ATRIAL FIBRILLATION MODERATE INTRAVENTRICULAR CONDUCTION DELAY [110+ ms QRS DURATION] ST DEVIATION AND MODERATE T-WAVE ABNORMALITY, CONSIDER LATERAL ISCHEMIA [-0.1+ mV T-WAVE IN I/aVL/V5/V6] ST DEVIATION AND MODERATE T-WAVE ABNORMALITY, CONSIDER INFERIOR ISCHEMIA [-0.1+ mV T-WAVE IN II/aVF] Compared to ECG 11/07/2021 20:57:23 No significant changes Electronically Signed On 11-08-2021 17:53:22 CDT by Garcia Chaparro M.D. [id number]
[2021-11-08 02:32] LABS: Basophils % 0.3 %; Eosinophils % 0.1 %; Hematocrit 34.4 % (42.0-52.0); Hemoglobin 11.1 g/dL (11.7-16.6); Lymphocytes # 1.4 10^3/uL (0.8-4.8); Mean Corpuscular HGB Conc 32.3 g/dL (30.0-36.0); Mean Platelet Volume 11.6 fL (7.4-10.4); Monocytes % 8.4 %; Neutrophils # 9.33 10^3/uL (1.8-7.7); Neutrophils % 78.8 %; Nucleated Red Blood Cells % 0 %; Platelet Count 152 10^3/cmm (130-400); Red Cell Distribution Width 16.4 % (12.1-15.1); White Blood Count 11.8 10^3/uL (4.0-10.0)
[2021-11-08 02:53] LABS: Alanine Aminotransferase 11 U/L (0-41); Albumin Level 3.8 g/dL (3.5-5.2); Alkaline Phosphatase 69 U/L (40-130); Anion Gap 16.9 (5-19); Aspartate Amino Transferase 14 U/L (0-40); Blood Urea Nitrogen 19 mg/dL (8-23); Calcium 8.7 mg/dL (8.5-10.5); Carbon Dioxide 22 mmol/L (22-29); Chloride 105 mmol/L (98-107); Globulin 2.9 g/dL (1.3-4.6); Glucose 173 mg/dL (65-115); Osmolality Calculated 296 mOsm/kg (285-295); Phosphorus 2.7 mg/dL (2.5-4.5); Potassium 3.9 mmol/L (3.5-5.1); Sodium 140 mmol/L (136-145); Total Protein 6.7 g/dL (6.6-8.7)
[2021-11-08 02:56] LABS: Troponin 5 6HR 43.06 ng/L (0-15)
[2021-11-08 03:05] LABS: Troponin 5 6HR Delta 2.06 ng/L (0-12)
[2021-11-08] MEDS: isosorbide mononitrate ER 60 mg Tablet 120 MG PO (04:19)
[2021-11-08] MEDS: clopidogrel 75 mg Tablet PO (04:20)
[2021-11-08] MEDS: polyethylene glycol 3350 Pkt 17 gm PO (04:20)
--- NOTE | 2021-11-08 10:08 | MR_ITS ---
WS: [id number] MRI BRAIN WITHOUT CONTRAST HISTORY: recurrent stroke, possible cerebellar stroke COMPARISON: CT head 11/07/2021 TECHNIQUE: Diffusion imaging, multiplanar T1, T2 and FLAIR imaging obtained. No acute infarct. Diffusion-weighted sequence is normal. There are a few small areas of hemosiderin i n the LEFT cerebellum. Fortune-white matter differentiation is normal. Mild bilateral cerebral and cerebellar atrophy. Confluent increased T2 signal surrounding the ventric les. No prior infarct. Ventricles and extra-axial spaces are normal. No inferior displacement of cerebellar tonsils. The sella turcica and pituitary gland are unremarkabl e. Dural venous sinuses and [place] demonstrate no abnormality on this unenhanced studies. Paranasal sinuses: Clear. Mastoid air cells: Normal. Calvarium and scalp: Intact. MR/MR head wo con* [id number] IMPRESSION: 1. No acute infarct or hemorrhage. 2. Mild atrophy and small vessel ischemic disease.
[2021-11-08] MEDS: aspirin 81 mg EC Tablet PO (10:27)
[2021-11-08] MEDS: pantoprazole DR 40 mg Tablet PO (10:27)
[2021-11-08] MEDS: ranolazine (12HR) 500 mg Tablet PO (10:28)
[2021-11-08] MEDS: metoprolol tartrate 50 mg Tablet PO (10:29)
[2021-11-08] MEDS: apixaban 5 mg Tablet 2.5 MG PO (10:29)
[2021-11-08] MEDS: artificial tears Op Soln 15 mL Btl 1 DROP EYE-BOTH (10:30)
[2021-11-08 11:17] LABS: Iron 15 ug/dL (59-158); Percent Saturation 5.2 % (20-50); Total Iron Binding Capacity 287 mcg/dl; Unsaturated Iron Binding 272 ug/dL (112-347)
[2021-11-08 11:33] LABS: Vitamin B12 515 pg/mL (232-1245)
--- NOTE | 2021-11-08 11:45 | PC.CHAP ---
Pastoral Care Encounter/Spiritual Assessment Type of Contact [] Declined migratory farm hand visit [] Patient/Family/Request visit [] Outpatient visit [] Follow-up visit [] Physician referral [] Code/Alert [x] Routine visit [] Staff referral [] Actively dying [] Patient sleeping [] Family support [] [] Out of room [] Palliative care [] [] Receiving care in room [] Pre-surgical visit [] Trauma [] Long length of stay [] ICU visit [] Other: Relational/Emotional Strength [x] Patient feels connected with others/family/visitors/staff [] Distress [] Loneliness/isolation [] Abandonment Spirituality of Patient [x] Person of Radha [x] Attends Religious of their Radha [x] Believes in Prayer [] Reads Bible or Shinto materials [] There are Spiritual issues to be addressed Shooter Helper Interventions [x] Prayer [x] Active listening [x] Non-anxious presence [x] Spiritual/emotional support [] Crisis/trauma care [] Spiritual counseling [] Bereavement support [] Provided bereavement packet [] Provided Bible/devotional materials [] Provided toy/stuffed animal, coloring book to patient or family member [] Provided Communion [] Anointing/[place] [] Salvation [x] Completed spiritual assessment [] Other: Impact on Illness or Injury [] Angry [] Fearful [] Anxious [] Often cries [] Exhaustion [] Unable to work [] Unable to attend druze [] Unable to walk/stand [] Unable to read [] Unable to drive [] Unable to eat/drink [] Unable to sleep [] Unable to be with family [] Patient intubated [] Other: Summary Time spent with patient 10 min
[2021-11-08 12:26] LABS: Folate Level > 20.0 ng/mL (4.5-32.2)
--- NOTE | 2021-11-08 14:39 | PM.DCS ---
Discharge Providers Date of Admission: 11/07/21 21:45 Date of Discharge: November 08, 2021 Attending Provider at Admission: Hermann Azar MD Attending Provider at Discharge: Jarocho Tejeda MD Primary Care Provider: Nikita Mosher MD Diagnoses at Discharge Discharge Diagnosis (1) Generalized weakness: Status: Acute (2) Unable to ambulate: Status: Acute (3) Essential hypertension: Status: Acute (4) Anticoagulation adequate with anticoagulant therapy: Status: Acute (5) Hyperlipidemia: Status: Acute (6) CKD (chronic kidney disease): Status: Acute Qualifiers: Chronic kidney disease stage: stage 3 (moderate) Chronic kidney disease stage 3 subtype: stage 3b (GFR 30-44) Qualified Code(s): N18.32 - Chronic kidney disease, stage 3b (7) Atrial fibrillation: Status: Acute (8) History of nonmelanoma skin cancer: Status: Acute Reason for Visit Reason for Visit: stroke like Hospital Course Hospital Course Isaac Blanco is a 81 year old male with a past medical history of CAD, atrial fibrillation, cervical stenosis, CKD, hyperlipidemia, NSIP, history of TIA, who presents [facility] due to generalized weakness, particularly bilateral extremity weakness, difficulty walking due to generalized weakness.? Patient is alert to person, to place, not to time, he is tells me that he has dementia, he has been more forgetful recently, more confused, she suspects his underlying dementia, she does help significantly with the answer taking.? He tells me that over the last few days he has been more weak, he has bilateral lower extremity weakness, and inability to ambulate due to his weakness, he also reports some trouble coordinating, no falls, he does complain of back pain which is new, does report urinary hesitancy, no dysuria, no hematuria, no saddle or perianal anesthesia, denies urinary continence, denies bowel incontinence.? Does report headache, no blurry vision.? Denies any slurring of words, no facial droop, no upper extremity weakness, he is taking his Eliquis as prescribed.? His does tell me that he has been having episodes with A. fib with RVR, but at baseline he runs heart rates 50s to 60s.? He has been having intermittent chest pain, he was seen here in the hospital a few months ago, treated for an NSTEMI, medically managed.? He was seen by his primary care for concerns for possible fever, and urgent care he tested negative for COVID, here he tested negative for COVID, he denies any cough, he tells me he has low-grade fevers. Patient admitted for further evaluation and management. He worked well with physical therapy, Occupational Therapy and speech therapy. Further testing for TIA versus stroke was done with carotid Dopplers, echocardiogram and CT head which did not show any new changes. MRI brain has been ordered and is pending. Patient during hospitalization was found to have borderline normal blood pressures for which his dose of Imdur was decreased. There were no active signs of infection with a normal UA, negative for any focal pneumonia or electrolyte abnormalities. During hospitalization on telemetry he remained stable. Patient is being continued on his home medications. He is advised to follow-up with primary care provider within next 1 week. Physical Exam Const: COMMON NORMALS: no acute distress and patient oriented x3 Eye: COMMON NORMALS: Equal, round and reactive pupils present and EOMs intact bilaterally PUPIL: Yes Equal, round and reactive pupils present Resp: COMMON NORMALS: normal respiratory effort, No retractions, No use of accessory muscles and clear to auscultation bilaterally AUSCULTATION: clear to auscultation bilaterally Cardio: COMMON NORMALS: regular rate, regular rhythm, S1 normal heart sound present and S2 normal heart sound present RATE: regular rate RHYTHM: regular rhythm HEART SOUNDS: S1 normal heart sound present and S2 normal heart sound present GI: COMMON NORMALS: Normal to inspection, nondistended, normoactive bowel sounds present, Soft to palpation, non-tender and No hepatosplenomegaly present PALPATION: Yes Soft to palpation and Yes No hepatosplenomegaly present Extremity: COMMON NORMALS: no pedal edema Neuro: COMMON NORMALS: patient oriented x3, CN's II-XII intact bilaterally, moves all extremities, no focal motor deficits and no sensory deficits noted OTHER: Has bilateral currently weakness, abnormal [id number], abnormal [id number] Psych: COMMON NORMALS: mental status grossly normal Discharge Data Studies Completed and Pending Completed Studies During Hospitalization Category Date Time Status CT head wo con* [id number] Stat Cat Scan 11/07/21 18:[address] lumbar spine wo con* [id number] Stat Cat Scan 11/07/21 22:39 Completed XR chest 1V portable [id number] Stat Exams 11/07/21 18:44 Completed CV carotid duplex BI* [id number] Stat Ultrasound 11/08/21 22:39 Completed CV. echo complete* [id number] Stat Ultrasound 11/08/21 22:39 Completed Pending at discharge Category Date Time Status Blood Culture Stat Lab 11/07/21 20:29 Results Complete Blood Count w/Auto AM LABS Lab 11/09/21 04:00 Ordered Complete Blood Count w/Auto AM LABS Lab 11/10/21 04:00 Ordered Comprehensive Metabolic Panel AM LABS Lab 11/09/21 04:00 Ordered Comprehensive Metabolic Panel AM LABS Lab 11/10/21 04:00 Ordered Magnesium AM LABS Lab 11/09/21 04:00 Ordered Magnesium AM LABS Lab 11/10/21 04:00 Ordered Phosphorus AM LABS Lab 11/09/21 04:00 Ordered Phosphorus AM LABS Lab 11/10/21 04:00 Ordered MR head wo con* [id number] Routine MRI 11/08/21 10:08 Ordered Radiology Impressions Chest X-Ray 11/07/21 18:44 IMPRESSION: No acute findings. Head CT 11/07/21 18:44 IMPRESSION: Negative for acute intracranial abnormality. Lumbar Spine CT 11/07/21 22:39 IMPRESSION: 1. Negative for acute lumbar spine abnormality. 2. Mildly increased size of abdominal aortic aneurysm. Echocardiogram: ?CONCLUSIONS ?LV systolic function is borderline normal with EF of 50-55% ?Biatrial enlargement ?Moderate to severe eccenteric mitral regurgitation ?Moderate aortic regurgitation ?Mild tricuspid regurgitation ?Moderate pulmonary hypertension ?Mildly dilated ascending aorta ?Compared to prior echocardiogram from 02/2021, mitral ?regurgitation has progressed and is moderate to severe now. ?Garcia Chaparro MD ?(Electronically Signed) ?Final Date:? ? ? 08 November 2021 ? 12:42 Laboratory Results WBC 11.8 10^3/uL (4.0-10.0) H 11/08/21 01:52 RBC 3.70 10^6/uL (4.1-5.3) L 11/08/21 01:52 Hgb 11.1 g/dL (11.7-16.6) L 11/08/21 01:52 Hct 34.4 % (42.0-52.0) L 11/08/21 01:52 MCV 93.0 fl (80-94) 11/08/21 01:52 MCH 30.0 pg (28.0-34.0) 11/08/21 01:52 MCHC 32.3 g/dL (30.0-36.0) 11/08/21 01:52 RDW 16.4 % (12.1-15.1) H 11/08/21 01:52 Plt Count 152 10^3/cmm (130-400) 11/08/21 01:52 MPV 11.6 fL (7.4-10.4) H 11/08/21 01:52 Neut % (Auto) 78.8 % 11/08/21 01:52 Lymph % (Auto) 12.0 % 11/08/21 01:52 Haines % (Auto) 8.4 % 11/08/21 01:52 Eos % (Auto) 0.1 % 11/08/21 01:52 Baso % (Auto) 0.3 % 11/08/21 01:52 Neut # (Auto) 9.33 10^3/uL (1.8-7.7) H 11/08/21 01:52 Lymph # (Auto) 1.4 10^3/uL (0.8-4.8) 11/08/21 01:52 Haines # (Auto) 1.0 10^3/uL (0.2-0.9) H 11/08/21 01:52 Eos # (Auto) 0.0 10^3/uL (0.0-0.8) 11/08/21 01:52 Baso # (Auto) 0.0 10^3/uL (0.0-0.1) 11/08/21 01:52 Nucleated RBC % (auto) 0 % 11/08/21 01:52 Nucleated RBCs # 0.0 /100WBC 11/08/21 01:52 ESR 37 mm/hr (0-10) H 11/07/21 19:25 Sodium 140 mmol/L (136-145) 11/08/21 01:52 Potassium 3.9 mmol/L (3.5-5.1) 11/08/21 01:52 Chloride 105 mmol/L (98-107) 11/08/21 01:52 Carbon Dioxide 22 mmol/L (22-29) 11/08/21 01:52 Anion Gap 16.9 (5-19) 11/08/21 01:52 BUN 19 mg/dL (8-23) 11/08/21 01:52 Creatinine 1.4 mg/dL (0.7-1.2) H 11/08/21 01:52 GFR Calculation Not Reportable 11/08/21 01:52 Glucose 173 mg/dL (65-115) H 11/08/21 01:52 Estimat Average Glucose 120 11/07/21 19:25 Hemoglobin A1c 5.8 % (4.0-6.0) 11/07/21 19:25 Calculated Osmolality 296 mOsm/kg (285-295) H 11/08/21 01:52 Lactate 1.4 mmol/L (0.5-2.2) 11/07/21 19:45 Calcium 8.7 mg/dL (8.5-10.5) 11/08/21 01:52 Phosphorus 2.7 mg/dL (2.5-4.5) 11/08/21 01:52 Magnesium 2.0 mg/dL (1.7-2.3) 11/08/21 01:52 Iron 15 ug/dL (59-158) L 11/08/21 01:55 TIBC 287 mcg/dl 11/08/21 01:55 % Saturation 5.2 % (20-50) L 11/08/21 01:55 Unsat Iron Binding 272 ug/dL (112-347) 11/08/21 01:55 Total Bilirubin 1.0 mg/dL (0.15-1.2) 11/08/21 01:52 AST 14 U/L (0-40) 11/08/21 01:52 ALT 11 U/L (0-41) 11/08/21 01:52 Alkaline Phosphatase 69 U/L (40-130) 11/08/21 01:52 Troponin T Baseline 41 ng/L (0-15) H 11/07/21 19:55 Troponin T 120 Minute 41.29 ng/L (0-15) H 11/07/21 21:58 Delta Troponin T 0.29 ABS# (0-10) 11/07/21 21:58 Troponin T Hi Sens 6Hr 43.06 ng/L (0-15) H 11/08/21 01:52 Troponin T Hi Sens 6Hr Delta 2.06 ng/L (0-12) 11/08/21 01:52 C-Reactive Protein 57.0 mg/L (0.0-4.9) H 11/07/21 19:55 C-Reactive Protein 60.7 mg/L (0.0-4.9) H 11/07/21 19:55 NT-Pro-B Natriuret Pep 8309 pg/mL (0-450) H 11/07/21 19:55 Total Protein 6.7 g/dL (6.6-8.7) 11/08/21 01:52 Albumin 3.8 g/dL (3.5-5.2) 11/08/21 01:52 Globulin 2.9 g/dL (1.3-4.6) 11/08/21 01:52 Triglycerides 57 mg/dL (0-150) 11/07/21 19:55 Cholesterol 117 mg/dL (0-200) 11/07/21 19:55 LDL Cholesterol, Calc 59 mg/dL (50-129) 11/07/21 19:55 HDL Cholesterol 47 mg/dL (60-100) L 11/07/21 19:55 LDL/HDL Ratio 1.26 RATIO (0.00-3.22) 11/07/21 19:55 Cholesterol/HDL Ratio 2.49 mg/dL (1.0-5.00) 11/07/21 19:55 Vitamin B12 515 pg/mL (232-1245) 11/08/21 01:55 Folate > 20.0 ng/mL (4.5-32.2) 11/08/21 01:55 Procalcitonin 0.06 ng/mL (0-0.5) 11/07/21 19:55 Procalcitonin 0.07 ng/mL (0-0.5) 11/07/21 19:55 TSH 1.96 uIU/mL (0.27-4.20) 11/07/21 19:55 TSH 2.16 uIU/mL (0.27-4.20) 11/07/21 19:55 Urine Color Yellow (Yellow) 11/07/21 21:09 Urine Appearance Clear (CLEAR) 11/07/21 21:09 Urine pH 6.5 (5-7) 11/07/21 21:09 Ur Specific Rosie 1.010 (1.005-1.030) 11/07/21 21:09 Urine Protein 1+ (Negative) H 11/07/21 21:09 Urine Glucose (UA) Norm (Normal) 11/07/21 21:09 Urine Ketones 1+ (Negative) H 11/07/21 21:09 Urine Blood Neg (Negative) 11/07/21 21:09 Urine Nitrate Negative (Negative) 11/07/21 21:09 Urine Bilirubin Neg (Negative) 11/07/21 21:09 Urine Urobilinogen Norm mg/dL (Negative) 11/07/21 21:09 Ur Leukocyte Esterase Negative (Negative) 11/07/21 21:09 Urine RBC 0-4 /hpf (0-2) H 11/07/21 21:09 Urine WBC None /hpf (0-5) 11/07/21 21:09 Ur Squamous Epith Cells 0-4 /hpf (0-5) H 11/07/21 21:09 Amorphous Sediment Not Reportable 11/07/21 21:09 Urine Bacteria None /hpf (NONE) 11/07/21 21:09 Nasal Influ A H1 2009 PCR Not detected (NOT DETECT) 11/07/21 21:09 Adenovirus (PCR) Not detected (NOT DETECT) 11/07/21 21:09 C. pneumoniae DNA (PCR) Not detected (NOT DETECT) 11/07/21 21:09 Coronavirus 229E (PCR) Not detected (NOT DETECT) 11/07/21 21:09 Human Metapneumovir PCR Not detected (NOT DETECT) 11/07/21 21:09 Influenza A (H1) PCR Not detected (NOT DETECT) 11/07/21 21:09 Influenza A (H3) PCR Not detected (NOT DETECT) 11/07/21 21:09 Influenza Type A (PCR) Not detected (NOT DETECT) 11/07/21 21:09 Influenza Type B (PCR) Not detected (NOT DETECT) 11/07/21 21:09 M. pneumoniae (PCR) Not detected (NOT DETECT) 11/07/21 21:09 Parainfluenza 1 (PCR) Not detected (NOT DETECT) 11/07/21 21:09 Parainfluenza 2 (PCR) Not detected (NOT DETECT) 11/07/21 21:09 Parainfluenza 3 (PCR) Not detected (NOT DETECT) 11/07/21 21:09 Parainfluenza 4 (PCR) Not detected (NOT DETECT) 11/07/21 21:09 RSV Type A (PCR) Not detected (NOT DETECT) 11/07/21 21:09 RSV Type B (PCR) Not detected (NOT DETECT) 11/07/21 21:09 Entero/Rhino (PCR) Not detected (NOT DETECT) 11/07/21 21:09 SARS-CoV-2 (PCR) Not detected (NOT DETECT) 11/07/21 21:09 Vitals Last Vital Signs Temp 98.0 F 11/08/21 12:18 Pulse 74 11/08/21 12:18 Resp 16 11/08/21 12:18 BP 91/54 11/08/21 12:18 Pulse Ox 92 11/08/21 11:56 O2 Del Method 11/08/21 11:56 Discharge Plan Discharge Patient Disposition: Home Health Service Condition: Stable Prescriptions: New isosorbide mononitrate 60 mg tablet extended release 24 hr 60 mg PO DAILY Qty: 30 0RF Continued pantoprazole 40 mg tablet,delayed release (DR/EC) 40 mg PO BID saw palmetto 450 mg capsule 450 mg PO BID Rx Instructions: give with food (meal/snack) Eliquis 5 mg tablet 2.5 mg PO BID aspirin [Adult Aspirin Regimen] 81 mg tablet,delayed release (DR/EC) 81 mg PO DAILY ranolazine 500 mg tablet extended release 12 hr 500 mg PO BID Qty: 180 3RF metoprolol tartrate 50 mg tablet 50 mg PO BID Qty: 180 3RF ketoconazole 2 % cream 1 applic topical BID Qty: 30 2RF Rx Instructions: Apply 1-2 x daily to face prn ketoconazole 2 % shampoo 1 applic topical .2 x weekly Qty: 120 3RF Rx Instructions: Lather into scalp 2 times weekly. Allow to sit on scalp for 5 minutes before rinsing. albuterol sulfate [Ventolin HFA] 90 mcg/actuation HFA aerosol inhaler 1 inh inhalation QID PRN (Reason: shortness of breath or wheezing) Qty: 8.5 3RF multivitamin Tablet 1 tab PO DAILY atorvastatin 40 mg tablet 40 mg PO BEDTIME magnesium 250 mg Tablet 250 mg PO DAILY nitroglycerin 0.4 mg tablet, sublingual 0.4 mg sublingual Q5M PRN (Reason: chest pains) Rx Instructions: max 3 tabs per episode gabapentin 100 mg Capsule 100 mg PO BEDTIME polyethylene glycol 3350 [Miralax] 17 gram Powder In Packet 17 g PO QAM vitamin B complex Tablet 1 tab PO DAILY fluticasone propionate 50 mcg/actuation [place],Suspension 2 spray INTRANASAL DAILY PRN (Reason: Allergy Symptoms) Artificial Tears (cmc) 1 % Drops 1 drp ophthalmic (eye) BID Rx Instructions: each eye clopidogrel 75 mg tablet 75 mg PO QAM Discontinued isosorbide mononitrate 120 mg tablet extended release 24 hr 120 mg PO QAM Discharge Orders: Discharge Order (Routine); Ordered 11/08/21 Ordered By: Jarocho Tejeda Referrals: Nikita Mosher MD [Primary Care Provider] - 7-10 days Discharge Diet: Regular Discharge Activity: Resume usual activity and Increase activity as tolerated Patient Instructions: Opioid Safety Discharge Attestations Time Spent in Discharge Care*: greater than 30 min Specific Discharge Activities: educating patient, educating and/or supporting family/caregiver, discussing with pcp/other providers, discussing with foster care case manager/social workers/dc planners, documenting/other paperwork and evaluating patient/reviewing data Status at Discharge: Cognitive status at discharge: mildly impaired cognition, Behavioral status at discharge: cooperative, Functional status at discharge: uses cane/walker, Overall status at discharge: patient is back to baseline Quality Metrics Clinical Quality Measures [ No reported AMI, CVA or VTE this stay] Coding Level of Care Code Acute [facility] DC note Diagnoses Generalized weakness R53.1 Unable to ambulate R26.2 Essential hypertension I10 Anticoagulation adequate with anticoagulant therapy Z79.01 Hyperlipidemia E78.5 CKD (chronic kidney disease) N18.32 Chronic kidney disease stage: stage 3 (moderate) Chronic kidney disease stage 3 subtype: stage 3b (GFR 30-44) Atrial fibrillation I48.91 History of nonmelanoma skin cancer Z85.828
--- NOTE | 2021-11-08 22:39 | USCV_ITS ---
Isaac Blanco Age: 81 Gender: M : 1940 Exam Date: 11/08/2021 02:41 Ordering Phys: Hermann Azar MD Technologist: TY Exam Location: [facility] [place] Indication: nstemi. No history of cardiac intervention per patient BP: 124 / 73 HR: 69 Rhythm: Atrial fibrillation Technical Quality: Adequate MEASUREMENTS (Male / Female) Normal Values 2D ECHO LV Diastolic Diameter PLAX 4.9 cm 4.2 - 5.9 / 3.9 - 5.3 cm LV Systolic Diameter PLAX 3.9 cm IVS Diastolic Thickness 1.9 cm 0.6 - 1.0 / 0.6 - 0.9 cm IVS Systolic Thickness 2.3 cm LVPW Diastolic Thickness 1.1 cm 0.6 - 1.0 / 0.6 - 0.9 cm LVPW Systolic Thickness 1.5 cm LVOT Diameter 1.8 cm LV Ejection Fraction 2D Teich 44.9 % LV Ejection Fraction MOD 2C 52.5 % LV Ejection Fraction 2C AL 52.4 % LA Diameter 4.8 cm LA Width 5.4 cm LA Height 7.8 cm RA Width 4.2 cm RA Height 6.1 cm Aorta at Sinotubular Diameter 3.3 cm IVC Diameter 2.5 cm M-MODE Aortic Annulus Diameter 3.7 cm LA Ao Ratio MM 1.4 MV E Point Septal Separation 0.4 cm DOPPLER AV Peak Velocity 105.0 cm/s LVOT Peak Velocity 91.0 cm/s AV Area Cont Eq vti 2.2 cm squared AV Area Cont Eq pk 2.3 cm squared MV Peak Velocity 115.0 cm/s MV Area PHT 3.0 cm squared MV E' Velocity 47.5 cm/s Mitral E to MV E' Ratio 8.3 Mitral E to LV E' Lateral Ratio 8.2 Mitral E to LV E' Septal Ratio 8.3 TR Peak Velocity 324.8 cm/s TR Peak Gradient 42.2 mmHg TV Peak E Velocity 39.0 cm/s Right Atrial Pressure 10.0 mmHg Pulmonary Artery Systolic Pressu 52.2 mmHg PV Peak Velocity 79.0 cm/s RV Acceleration Time 0.0 s RV Ejection Time 0.3 s RV AcT/ET 0.1 FINDINGS Left Ventricle Left ventricle is normal in size. LV systolic function is borderline normal with EF of 50-55%. No regional wall motion abnormalities seen Right Ventricle Normal in size and function Right Atrium Dilated Left Atrium Left atrium is dilated Mitral Valve Mitral valve is structurally normal. Moderate to severe eccenteric mitral regurgitation Aortic Valve Aortic valve is thickened. Moderate aortic regurgitation. No significant stenosis. Tricuspid Valve Mild tricuspid regurgitation. RVSP is 50-55mmHg. This is consistent with moderate pulmonary hypertension Pulmonic Valve Not well viisualized Pericardium Normal Aorta Mildly dilated IVC CONCLUSIONS LV systolic function is borderline normal with EF of 50-55% Biatrial enlargement Moderate to severe eccenteric mitral regurgitation Moderate aortic regurgitation Mild tricuspid regurgitation Moderate pulmonary hypertension Mildly dilated ascending aorta Compared to prior echocardiogram from 02/2021, mitral regurgitation has progressed and is moderate to severe now. Garcia Chaparro MD (Electronically Signed) Final Date: 08 November 2021 12:42 S
--- NOTE | 2021-11-08 22:39 | USCV_ITS ---
Isaac Blanco Age: 81 Gender: M : 1940 Exam Date: 11/08/2021 02:09 Ordering Phys: Hermann Azar MD Technologist: TY Exam Location: [facility] [place] Indication: bilateral leg weakness with confusion; non-smoker, no DM Risk Factors: bilateral leg weakness with confusion; non- smoker, no DM Previous Vascular Surgery: None Right Brachial BP: / Left Brachial BP: / Right Left Velocity (cm/s) Spectral Plaque Velocity (cm/s) Spectral Plaque Syst/Diast Broadening Syst/Diast Broadening 58.50/ 5.30 None Homo Prox CCA 53.60 / 10.10 None Homo 46.00/ 4.60 None Homo Mid CCA 49.70 / 14.80 None Homo 35.50/ 12.50 None Homo Distal CCA 55.20 / 10.90 None Homo 40.20/ 12.00 Min Rolf Prox ICA 77.70 / 30.30 Min Rolf 71.60/ 19.70 Min Homo Mid ICA 77.70 / 21.80 Min Homo 89.30/ 22.50 Min Homo Distal ICA 65.40 / 24.10 Min Homo 45.70 None Homo ECA 56.70 None None 1.53 ICA/CCA 1.41 Antegrade Vertebral Antegrade 31.80/ 9.30 cm/s 35.70/ 14.00 cm/s Tri Subclavian Tri 76.10 63.70 FINDINGS Comparison:. 07/25/18. No significant elevation of systolic or diastolic velocities. Waveforms are normal. Mild calcified plaque in the bifurcations. Antegrade vertebral arteries. CONCLUSIONS No interval change in stenosis since prior exam. Bilateral ICA stenosis less than 50%. Mild bilateral carotid atherosclerosis. Dr. Joana Barahona DO (Electronically Signed) Final Date: 08 November 2021 07:53 S
== END 2021-11-08 17:51 | disposition home health service (06) ==
LOC: ER 21:45 → MEDSURG 22:51
PROVIDERS: Admitting Provider Family Medicine; Emergency Provider Emergency Medicine; PCP Family Medicine; Visit Provider Student in an Organized Health Care Education/Training Program
DX: R53.1 Weakness (principal); R26.2 Difficulty in walking, not elsewhere classified; Z79.01 Long term (current) use of anticoagulants; E78.5 Hyperlipidemia, unspecified; N18.32 Chronic kidney disease, stage 3b; I12.9 Hypertensive chronic kidney disease with stage 1 through stage 4 chronic kidney disease, or unspecified chronic kidney disease; I48.91 Unspecified atrial fibrillation; Z85.828 Personal history of other malignant neoplasm of skin; I25.10 Atherosclerotic heart disease of native coronary artery without angina pectoris; Z86.73 Personal history of transient ischemic attack (TIA), and cerebral infarction without residual deficits; Z79.82 Long term (current) use of aspirin; Z86.16 Personal history of COVID-19; Z87.891 Personal history of nicotine dependence; Z66 Do not resuscitate
CPT/HCPCS: 36415; 70450; 70551; 71045; 72131; 80053; 80061; 81001; 82607; 82746; 83036; 83540; 83550; 83605; 83735; 83880; 84100; 84145; 84443; 84484; 85025; 85651; 86140; 87040; 87426; 87486; 87581; 87633; 92523; 92610; 93005; 93306; 93880; 94664; 96361; 96374; 97161; 97165; 99285; G0378; J3490; J7030

== ENCOUNTER 2021-11-25 16:24 | Inpatient (IN) | payer MEDICARE, OTHER, SELFPAY ==
[2021-11-25] VITALS (9 sets, daily range): BP systolic 96–141; BP diastolic 53–70; PULSE 54–80; RESP 20–30; TEMP 36.7; O2SAT 90–97; BMI 22.7; BMI 22.1
--- NOTE | 2021-11-25 16:45 | XRR_ITS ---
PROCEDURE INFORMATION: Exam: XR Chest Exam date and time: 11/25/2021 4:59 PM Age: 81 years old Clinical indication: Cough; Additional info: Coughing TECHNIQUE: Imaging protocol: Radiologic exam of the chest. Views: 2 views. COMPARISON: CR (CHEST, ) 11/07/2021 7:00 PM FINDINGS: Lungs: Emphysema. Mild atelectasis in both lung bases, left greater than right. The lungs are otherwise clear. Pleural spaces: Probable small pleural effusions. No pneumothorax. Heart/Mediastinum: Unremarkable. Mild cardiomegaly. Bones/joints: C-spine fusion hardware. XR/XR chest 2V* [id number] IMPRESSION: 1. Probable small pleural effusions.
--- NOTE | 2021-11-25 17:32 | ECG_ITS ---
[facility] Test Date: 2021-11-25 Pat Name: Isaac Blanco Department: Room: Gender: Male [employer]: : 1940 Requested By: Bo Interiano Order Number: [id number] Radha MD: Garcia Chaparro M.D. Measurements Intervals [place] Rate: 78 P: 61 UT: 204 QRS: 39 QRSD: 117 T: -53 QT: 427 QTc: 487 Interpretive Statements SINUS RHYTHM WITH OCCASIONAL SUPRAVENTRICULAR PREMATURE COMPLEXES MODERATE INTRAVENTRICULAR CONDUCTION DELAY [110+ ms QRS DURATION] ST DEVIATION AND MODERATE T-WAVE ABNORMALITY, CONSIDER LATERAL ISCHEMIA [-0.1+ mV T-WAVE IN I/aVL/V5/V6] ST DEVIATION AND MODERATE T-WAVE ABNORMALITY, CONSIDER INFERIOR ISCHEMIA [-0.1+ mV T-WAVE IN II/aVF] Compared to ECG 11/08/2021 04:47:02 Atrial fibrillation no longer present T-wave abnormality still present Possible ischemia still present Electronically Signed On 11-27-2021 13:24:50 CDT by Garcia Chaparro M.D. [email or web address]
--- NOTE | 2021-11-25 18:08 | W.ED.URI ---
HPI - URI/Sore Throat General: Chief Complaint: Upper Respiratory Infection Stated Complaint: Coughing Time Seen by Provider: 11/25/21 18:08 History of Present Illness: Mr. Blanco is an 81-year-old gentleman with significant medical history of A. fib, CKD, CAD presenting to the emergency department due to cough and shortness of breath. Onset of symptoms was gradual proximally 3 weeks ago and has been progressively worsening. Cough is only mildly productive. Shortness of breath is worse with exertion and becomes severe. No other specific changes in health, exacerbating, or alleviating factors identified. Onset (ago): week(s) Consistency: progressively worsening Severity: moderate Exacerbating factors: exertion, deep breaths and supine positioning Review of Systems General: Reports: 10 or more systems reviewed and unremarkable except in HPI and below PFSH ED PFSH: Medical History Acute viral syndrome Anticoagulation adequate with anticoagulant therapy Atherosclerotic heart disease of [place] coronary artery with unstable angina pectoris Last echocardiogram EF 50%, mild mitral and atrial regurgitation February 2021 Atrial fibrillation Atrial fibrillation with RVR CAD (coronary artery disease) Cervical stenosis of spinal canal Cervical stenosis of spinal canal CKD (chronic kidney disease) COVID-19 resolved, Mar 2020 Dyslipidemia Essential hypertension Generalized weakness GERD (gastroesophageal reflux disease) Ground glass opacity present on imaging of lung History of nonmelanoma skin cancer Hyperlipidemia Inflammatory arthritis Ischemic cardiomyopathy NSIP (nonspecific interstitial pneumonia) NSTEMI (non-ST elevated myocardial infarction) Peripheral neuropathy Pleural effusion, bilateral Pneumonia SLE (systemic lupus erythematosus related syndrome) Sleep apnea TIA (transient ischemic attack) Surgical History History of coronary angiogram History of neck surgery History of shoulder surgery History of surgery on wrist Family History Other CAD (coronary artery disease) Diabetes Hypertension Denies family history of Rheumatoid arthritis Lupus Lung disease Cancer Stroke Social History Smoking and tobacco status: former smoker Quit status (tobacco): has quit using tobacco Year quit tobacco: 1959 Former quit date comment: Hx of 1 PPD x 10 Years Second hand smoke exposure: No Smoking risk assessment/counseling performed?: Yes Alcohol intake: never Counseling given: No Counseling given: No Lives independently: Yes Household members: spouse Marital status: service: Yes Current occupational status: retired Pets and animals: No History of recent travel: No Current gender identity: Male Physical Exam Const: COMMON NORMALS: alert GENERAL APPEARANCE: cooperative and well developed HENMT: COMMON NORMALS: normocephalic and atraumatic HEAD & SCALP: normocephalic and atraumatic THROAT: posterior oropharynx normal Eye: COMMON NORMALS: conjunctivae normal CONJUNCTIVA: Yes conjunctivae normal SCLERA: sclerae normal Neck/C-Spine: COMMON NORMALS: supple GENERAL: Yes trachea midline Resp: EFFORT & INSPECTION: Yes able to speak in complete sentences and Yes tachypneic AUSCULTATION: rhonchi Cardio: COMMON NORMALS: regular rate and regular rhythm RATE: regular rate RHYTHM: regular rhythm GI: COMMON NORMALS: Soft to palpation PALPATION: Yes Soft to palpation and No Tenderness to palpation present (GI) Extremity: GENERAL: Yes normal exam except as noted and No edema Neuro: COMMON NORMALS: moves all extremities SENSORIUM/ORIENTATION: Yes alert and No Orientation impaired Psych: COMMON NORMALS: mental status grossly normal and Normal thought process present THOUGHT PROCESS: Normal thought process present Course ED course: - Patient was seen and evaluated by me at bedside - Patient placed on cardiac monitors, IV access obtained - Initial evaluation notable for exam as above. No appearance. Patient with significant cough limiting ability to speak in complete sentences. - Labs and xrays personally interpreted by me. EKG shows sinus rhythm with first AV block, nonspecific ST segment abnormalities, no STEMI. -Cough present and RT treatment ordered. - Labs notable for mild leukocytosis, normocytic anemia. Metabolic panel with some evidence of metabolic stress/dehydration. Negative delta troponin. BNP elevated. - Imaging notable for pleural effusions with possible pneumonia. Antibiotic ordered. - Upon serial reexamination after treatment the patient was only mildly improved and still requiring oxygen - Based on patient history, evaluation, and testing as interpreted the most likely cause of the patient's condition is pneumonia with acute on chronic heart failure - The results of ED evaluation were discussed with the patient including plan for admission due to requirement for level of care not available if discharged to prevent significant worsening/deterioration. - Admitting service was contacted and Dr Malik with the hospitalist service agreed to admit the patient - Patient was admitted without further deterioration or significant events. Note: Click bubbles or prepopulated carmen in note writing are used for assistance with data collection and billing and are inherently more limited than narrative and other text portions of this note. Please use narrative for additional clinical history and defer to narrative/free test for any case of contradictory information. If information appears in only free text or click bubble it should be considered present or absent as reported. Please contact note caption writer for clarifications of clinical information or contradictory information. MDM is a brief summary, contradictory or erroneous seeming information should be clarified and full note should be reviewed. Vital Signs: Vital signs: Vital Signs Temperature 97.9 F 11/29/21 13:38 Pulse Rate 95 11/29/21 13:38 Respiratory Rate 16 11/29/21 13:38 Blood Pressure 110/74 11/29/21 13:38 Pulse Oximetry 96 11/29/21 13:38 Oxygen Delivery Me thod 11/29/21 11:49 Oxygen Flow Rate 2 11/29/21 09:40 MDM - URI/Sore Throat Medical Decision Making 81-year-old gentleman with likely underlying lung disease but no baseline oxygen requirement presenting with progressive onset shortness of breath with cough. Possible pneumonia with pleural effusions identified as etiology. Admitted for further management. Medical Records I reviewed the patient's medical records. Lab Data I reviewed the patient's lab results. : 11/29/21 04:33 11/29/21 04:33 Radiology Impressions Chest X-Ray 11/25/21 16:45 IMPRESSION: 1. Probable small pleural effusions. ADDENDUM: 11/25/21 1722 Bones/joints: Mild chronic T3 compression fracture. Chest CTA 11/25/21 19:39 IMPRESSION: 1. No evidence for pulmonary embolus. 2. Dependent ground-glass opacities in the right upper and middle lobes could represent pneumonia or atelectasis. 3. Medium bilateral pleural effusions with mild atelectasis. Neck CT 11/25/21 19:39 IMPRESSION: 1. Large bilateral pleural effusions somewhat visualized. 2. Bilateral upper lobe patchy ground-glass airspace infiltrates suspected. 3. C5/6/7 anterior cervical discectomy and fusion changes without surrounding inflammation or acute appearing abnormality. Findings, however, are in close proximity to the posterior esophagus, a barium swallow could further evaluate this area to assess for external compression on the esophagus secondary to this surgical hardware. 4. Scattered prominent lymph nodes in the mediastinum measuring up to 16 mm, nonspecific. Laboratory Results WBC 10.5 10^3/uL (4.0-10.0) H 11/26/21 00:55 RBC 3.60 10^6/uL (4.1-5.3) L 11/26/21 00:55 Hgb 10.5 g/dL (11.7-16.6) L 11/26/21 00:55 Hct 32.2 % (42.0-52.0) L 11/26/21 00:55 MCV 89.4 fl (80-94) 11/26/21 00:55 MCH 29.2 pg (28.0-34.0) 11/26/21 00:55 MCHC 32.6 g/dL (30.0-36.0) 11/26/21 00:55 RDW 15.8 % (12.1-15.1) H 11/26/21 00:55 Plt Count 277 10^3/cmm (130-400) 11/26/21 00:55 MPV 10.8 fL (7.4-10.4) H 11/26/21 00:55 Neut % (Auto) 82.0 % 11/26/21 00:55 Lymph % (Auto) 7.4 % 11/26/21 00:55 [place] % (Auto) 10.0 % 11/26/21 00:55 Eos % (Auto) 0.1 % 11/26/21 00:55 Baso % (Auto) 0.1 % 11/26/21 00:55 Neut # (Auto) 8.59 10^3/uL (1.8-7.7) H 11/26/21 00:55 Lymph # (Auto) 0.8 10^3/uL (0.8-4.8) 11/26/21 00:55 [place] # (Auto) 1.1 10^3/uL (0.2-0.9) H 11/26/21 00:55 Eos # (Auto) 0.0 10^3/uL (0.0-0.8) 11/26/21 00:55 Baso # (Auto) 0.0 10^3/uL (0.0-0.1) 11/26/21 00:55 Nucleated RBC % (auto) 0 % 11/26/21 00:55 Nucleated RBCs # 0.0 /100WBC 11/26/21 00:55 D-Dimer 3.50 ug/mIFEU (0-0.59) H 11/25/21 18:30 Sodium 131 mmol/L (136-145) L 11/26/21 00:55 Potassium 4.0 mmol/L (3.5-5.1) 11/26/21 00:55 Chloride 98 mmol/L (98-107) 11/26/21 00:55 Carbon Dioxide 19 mmol/L (22-29) L 11/26/21 00:55 Anion Gap 18.0 (5-19) 11/26/21 00:55 BUN 24 mg/dL (8-23) H 11/26/21 00:55 Creatinine 1.6 mg/dL (0.7-1.2) H 11/26/21 00:55 GFR Calculation Not Reportable 11/26/21 00:55 Glucose 91 mg/dL (65-115) 11/26/21 00:55 Calculated Osmolality 276 mOsm/kg (285-295) L 11/26/21 00:55 Calcium 8.6 mg/dL (8.5-10.5) 11/26/21 00:55 Magnesium 1.9 mg/dL (1.7-2.3) 11/26/21 00:55 Total Bilirubin 1.2 mg/dL (0.15-1.2) 11/25/21 18:30 AST 26 U/L (0-40) 11/25/21 18:30 ALT 19 U/L (0-41) 11/25/21 18:30 Alkaline Phosphatase 62 U/L (40-130) 11/25/21 18:30 Troponin T Baseline 25 ng/L (0-15) H 11/25/21 18:30 Troponin T 120 Minute 27.65 ng/L (0-15) H 11/25/21 19:51 Delta Troponin T 2.65 ABS# (0-10) 11/25/21 19:51 Troponin T Hi Sens 6Hr 29.26 ng/L (0-15) H 11/26/21 00:55 Troponin T Hi Sens 6Hr Delta 4.26 ng/L (0-12) 11/26/21 00:55 C-Reactive Protein 95.5 mg/L (0.0-4.9) H 11/26/21 00:55 NT-Pro-B Natriuret Pep 90821 pg/mL (0-450) H 11/25/21 20:40 Total Protein 8.0 g/dL (6.6-8.7) 11/25/21 18:30 Albumin 3.3 g/dL (3.5-5.2) L 11/25/21 18:30 Globulin 4.7 g/dL (1.3-4.6) H 11/25/21 18:30 Procalcitonin 0.07 ng/mL (0-0.5) 11/25/21 20:40 SARS-CoV-2 Ag (Rapid) Negative (Negative) 11/25/21 18:46 Discharge Plan Discharge Patient Disposition: Placed in Observation Admit Provider: Semaj Malik Clinical Impression: Pneumonia, Pleural effusion, bilateral Coding Level of Care Code ED Insights Strategist for Eleazar Hargrove
[2021-11-25] MEDS: benzonatate 100 mg Capsule PO ×2 (18:48→21:28)
[2021-11-25 18:55] LABS: Basophils % 0.2 %; Eosinophils % 0.2 %; Hematocrit 35.2 % (42.0-52.0); Hemoglobin 11.4 g/dL (11.7-16.6); Lymphocytes # 1.1 10^3/uL (0.8-4.8); Lymphocytes % 8.8 %; Mean Corpuscular HGB Conc 32.4 g/dL (30.0-36.0); Mean Corpuscular Hemoglobin 29.6 pg (28.0-34.0); Mean Corpuscular Volume 91.4 fl (80-94); Mean Platelet Volume 10.8 fL (7.4-10.4); Monocytes # 1.2 10^3/uL (0.2-0.9); Monocytes % 10.2 %; Neutrophils # 9.72 10^3/uL (1.8-7.7); Neutrophils % 80.3 %; Nucleated Red Blood Cells % 0 %; Platelet Count 278 10^3/cmm (130-400); Red Blood Count 3.85 10^6/uL (4.1-5.3); White Blood Count 12.1 10^3/uL (4.0-10.0)
--- NOTE | 2021-11-25 19:01 | PC.NURSE ---
Report to HERBERT Kelly
[2021-11-25 19:12] LABS: SARS Covid-2 Antigen Negative (Negative)
[2021-11-25] MEDS: ipratropium-albuterol 3 mL Neb INHALATION ×2 (19:21→23:26)
[2021-11-25 19:35] LABS: Troponin(5th) Baseline 25 ng/L (0-15)
[2021-11-25 19:38] LABS: Alanine Aminotransferase 19 U/L (0-41); Albumin Level 3.3 g/dL (3.5-5.2); Alkaline Phosphatase 62 U/L (40-130); Aspartate Amino Transferase 26 U/L (0-40); Blood Urea Nitrogen 24 mg/dL (8-23); Calcium 8.9 mg/dL (8.5-10.5); Carbon Dioxide 18 mmol/L (22-29); Chloride 97 mmol/L (98-107); Globulin 4.7 g/dL (1.3-4.6); Glucose 103 mg/dL (65-115); Osmolality Calculated 272 mOsm/kg (285-295); Sodium 129 mmol/L (136-145); Total Bilirubin 1.2 mg/dL (0.15-1.2)
[2021-11-25 19:39] LABS: Anion Gap 18.2 (5-19); Potassium 4.2 mmol/L (3.5-5.1)
--- NOTE | 2021-11-25 19:39 | CTR_ITS ---
PROCEDURE INFORMATION: Exam: CTA Chest With Contrast Exam date and time: 11/25/2021 8:06 PM Age: 81 years old Clinical indication: Cough and shortness of breath; Prior surgery; Surgery type: Bilateral shoulder; Additional info: Cough, SOB, elevated ddimer TECHNIQUE: Imaging protocol: Computed tomographic angiography of the chest with contrast. 3D rendering (Not supervised by radiologist): MIP and/or 3D reconstructed images were created by the technologist. Radiation optimization: All CT scans at this facility use at least one of these dose optimization techniques: automated exposure control; mA and/or kV adjustment per patient size (includes targeted exams where dose is matched to clinical indication); or iterative reconstruction. Contrast material: OMNI 350; Contrast volume: 90 ml; Contrast route: INTRAVENOUS (IV); COMPARISON: CT angio chest PE protcl [id number] 03/12/2020 4:[address] chest wo con [id number] 09/22/2021 2:56 PM RADIATION DOSE METRICS: Total DLP (mGy-cm): 366.02 FINDINGS: Pulmonary arteries: Normal. No pulmonary emboli. Aorta: Unremarkable. No aortic aneurysm. No aortic dissection. Lungs: Dependent atelectasis in both lower lobes. Dependent ground-glass opacities in the right upper and middle lobes. Pleural spaces: Medium sized bilateral simple pleural effusions. No pneumothorax. Heart: Medium sized pericardial effusion. Mild cardiomegaly. Coronary artery calcifications. Lymph nodes: Calcified mediastinal and right hilar lymph nodes. Spleen: Calcified granulomas in the spleen. Bones/joints: C-spine fusion hardware. Mild degenerative changes of the thoracic spine. Stable mild compression of the T3 and T6 vertebral bodies. Soft tissues: Unremarkable. CT/CT angio chest PE protcl [id number] IMPRESSION: 1. No evidence for pulmonary embolus. 2. Dependent ground-glass opacities in the right upper and middle lobes could represent pneumonia or atelectasis. 3. Medium bilateral pleural effusions with mild atelectasis.
--- NOTE | 2021-11-25 19:39 | CTR_ITS ---
PROCEDURE INFORMATION: Exam: CT Neck With Contrast Exam date and time: 11/25/2021 8:13 PM Age: 81 years old Clinical indication: Other: Globus sensation, cough; Prior surgery; Surgery date: 6+ months; Surgery type: Cervical plate TECHNIQUE: Imaging protocol: Computed tomography of the neck with contrast. Radiation optimization: All CT scans at this facility use at least one of these dose optimization techniques: automated exposure control; mA and/or kV adjustment per patient size (includes targeted exams where dose is matched to clinical indication); or iterative reconstruction. Contrast material: OMNI 350; Contrast volume: 80 ml; Contrast route: INTRAVENOUS (IV); COMPARISON: MR cervical spin wo con* [id number] 06/09/2020 11:54 AM RADIATION DOSE METRICS: Total DLP (mGy-cm): 242.51 FINDINGS: Pharynx: Unremarkable. No significant tonsillar enlargement. Larynx: Unremarkable. Epiglottis is normal. Prevertebral and retropharyngeal spaces: Unremarkable. Salivary glands: Normal. Glands are normal in size. Thyroid: Normal. No enlarged or calcified nodules. Lymph nodes: Scattered prominent lymph nodes in the mediastinum measuring up to 16 mm, nonspecific. Trachea: Visualized trachea is unremarkable. Lungs: Bilateral upper lobe patchy ground-glass airspace infiltrates suspected. Pleural spaces: Large bilateral pleural effusions somewhat visualized. Bones/joints: C5/6/7 anterior cervical discectomy and fusion changes without surrounding inflammation or acute appearing abnormality. Findings, however, are in close proximity to the posterior esophagus, a barium swallow could further evaluate this area to assess for external compression on the esophagus secondary to this surgical hardware. Soft tissues: Unremarkable. No significant soft tissue swelling. CT/CT neck w con* [id number] IMPRESSION: 1. Large bilateral pleural effusions somewhat visualized. 2. Bilateral upper lobe patchy ground-glass airspace infiltrates suspected. 3. C5/6/7 anterior cervical discectomy and fusion changes without surrounding inflammation or acute appearing abnormality. Findings, however, are in close proximity to the posterior esophagus, a barium swallow could further evaluate this area to assess for external compression on the esophagus secondary to this surgical hardware. 4. Scattered prominent lymph nodes in the mediastinum measuring up to 16 mm, nonspecific.
--- NOTE | 2021-11-25 20:00 | PC.NURSE ---
taken to ct at this time.
[2021-11-25] MEDS: iohexol 350 mg/mL 100 mL Btl 90 ML IV (20:11)
[2021-11-25] MEDS: iohexol 350 mg/mL 100 mL Btl IV (20:17)
--- NOTE | 2021-11-25 20:26 | PC.NURSE ---
patient returned from ct at this time.
[2021-11-25 20:31] LABS: Troponin 5 2HR 27.65 ng/L (0-15)
[2021-11-25 20:33] LABS: Troponin 5 2HR Delta 2.65 ABS# (0-10)
--- NOTE | 2021-11-25 21:12 | P.HP_ITS ---
Providers/Chief Complaint Primary Care Provider: Nikita Mosher MD Chief Complaint: Coughing History of Present Illness Isaac Blanco is a 81 year old male has been experiencing shortness of breath with productive cough for last 7 to 10 days, his PCP prescribed Augmentin for bronchitis however that did not help he was seen by PCP again on 11/23 at that time he received steroids however symptoms has gotten worse and he decided come to the ER for further evaluation. 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 Dai for persistent groundglass opacities on chest imaging, chronic kidney disease, A. fib, chronic anticoagulation with Eliquis, was recently discharged on 11/07 after management of generalized weakness, had MRI was unremarkable, he is DNR/DNI. High-resolution CT scan and pulmonary function test groundglass opacities likely SLE related NSIP, he also have component of complex sleep apnea. Please note CT scan from 03/12/2020 showed groundglass opacities right hemithorax asymmetrical pulmonary edema. Dr. Dai recommended auto CPAP instead of BiPAP which sometimes can worsen central apneas His brought him to the hospital because of worsening of symptoms, patient's symptoms started productive cough, white sputum production, he has been consistently coughing for the last 1 to 2 weeks, no fever, chest pain or diarrhea. is stating that the only time his coughing would stop is at the time of sleep. He has been using his CPAP which is auto titratable, patient is extremely dehydrated he has not eaten well in last few days. Because of excessive coughing today he started experiencing soreness in his chest that is why he came to the hospital for further evaluation In the ER he has been diagnosed with leukocytosis, he does not meet sepsis criteria, CT scanning for lung concerning for pneumonia, pleural effusion moderate in nature Currently he is on room air Extremely dehydrated Concentrated urine noticed in the urinal He has been given Levaquin in the ER CTA chest rule out PE CT neck was done because patient was experiencing back pain and odynophagia, seem like his cervical hardware seems to be close to esophagus which is the cause of his choking sensation, as per the his breathing gets better when he leans forward and it gets worse when he lays supine in his bed Review of Systems Const: Reports: chills, body aches, change in appetite, change in weight, f atigue and malaise Eyes: Denies: change in vision ENMT: Denies: throat pain Card: Reports: dyspnea on exertion and orthopnea; Denies: chest pain Resp: Reports: dyspnea and productive cough GI: Reports: nausea : Denies: flank pain Musc: Reports: back pain Skin/Breast: Denies: rash Neuro: Denies: headache(s) Psych: Denies: anxiety Endo: Denies: polyuria Ever/Lymph: Denies: easy bruising All/Imm: Denies: urticaria Medications/Allergies Home Medications Medication Instructions Recorded Confirmed Last Taken Type saw palmetto 450 mg capsule 450 mg PO BID 08/21/19 11/23/21 11/07/21 History atorvastatin 40 mg tablet 40 mg PO BEDTIME 02/17/20 11/23/21 11/06/21 History magnesium 250 mg tablet 250 mg PO DAILY 02/17/20 11/23/21 11/07/21 History multivitamin 1 tab PO DAILY 02/17/20 11/23/21 11/07/21 History nitroglycerin 0.4 mg sublingual 0.4 mg sublingual Q5M PRN chest 02/17/20 11/23/21 06/17/21 History tablet pains pantoprazole 40 mg tablet,delayed 40 mg PO BID 09/27/20 11/23/21 11/07/21 History release gabapentin 100 mg capsule 100 mg PO BEDTIME 02/10/21 11/23/21 11/06/21 History polyethylene glycol 3350 17 gram 17 g PO QAM 02/27/21 11/23/21 11/07/21 History oral powder packet (Miralax) fluticasone propionate 50 2 spray intranasal DAILY PRN 03/04/21 11/23/21 03/15/21 History mcg/actuation nasal Allergy Symptoms spray,suspension vitamin B complex 1 tab PO DAILY 03/04/21 11/23/21 11/07/21 History ranolazine 500 mg tablet,extended 500 mg PO BID #180 tabs 03/28/21 11/23/21 11/07/21 Rx release,12 hr metoprolol tartrate 50 mg tablet 50 mg PO BID #180 tabs 04/29/21 11/23/21 11/07/21 Rx apixaban 5 mg tablet (Eliquis) 2.5 mg PO BID 05/03/21 11/23/21 11/07/21 History carboxymethylcellulose sodium 1 % 1 drp ophthalmic (eye) BID 06/17/21 11/23/21 11/07/21 History eye drops (Artificial Tears (carboxymethylcellulose)) clopidogrel 75 mg tablet 75 mg PO QAM 06/17/21 11/23/21 11/07/21 History aspirin 81 mg tablet,delayed 81 mg PO DAILY 08/04/21 11/23/21 11/07/21 History release (Adult Aspirin Regimen) ketoconazole 2 % shampoo 1 applic topical .2 x weekly #120 08/23/21 11/23/21 Unknown Rx mL ketoconazole 2 % topical cream 1 applic topical BID #30 grams 08/23/21 11/23/21 Unknown Rx albuterol sulfate 90 mcg/actuation 1 inh inhalation QID PRN shortness 11/04/21 11/23/21 Unknown Rx aerosol inhaler (Ventolin HFA) of breath or wheezing #8.5 grams isosorbide mononitrate 60 mg 60 mg PO DAILY #30 tabs 11/08/21 11/23/21 Unknown Rx tablet,extended release 24 hr Allergies Allergy/AdvReac Type Severity Reaction Status Date / Time hydrocodone Allergy Severe Unknown Verified 11/07/21 19:17 codeine Allergy Unknown Unknown Verified 11/07/21 19:17 PFSH Acute PFSH: Medical History Acute viral syndrome Anticoagulation adequate with anticoagulant therapy Atherosclerotic heart disease of [place] coronary artery with unstable angina [place] Last echocardiogram EF 50%, mild mitral and atrial regurgitation February 2021 Atrial fibrillation CAD (coronary artery disease) Cervical stenosis of spinal canal Cervical stenosis of spinal canal CKD (chronic kidney disease) COVID-19 resolved, Mar 2020 Dyslipidemia Essential hypertension GERD (gastroesophageal reflux disease) Ground glass opacity present on imaging of lung History of nonmelanoma skin cancer Hyperlipidemia Inflammatory arthritis Ischemic cardiomyopathy NSIP (nonspecific interstitial pneumonia) NSTEMI (non-ST elevated myocardial infarction) Peripheral neuropathy SLE (systemic lupus erythematosus related syndrome) Sleep apnea TIA (transient ischemic attack) Surgical History History of coronary angiogram History of neck surgery History of shoulder surgery History of surgery on wrist Family History Other CAD (coronary artery disease) Diabetes Hypertension Denies family history of Rheumatoid arthritis Lupus Lung disease Cancer Stroke Social History Smoking and tobacco status: former smoker Quit status (tobacco): has quit using tobacco Year quit tobacco: 1959 Former quit date comment: Hx of 1 PPD x 10 Years Second hand smoke exposure: No Smoking risk assessment/counseling performed?: Yes Alcohol intake: never Counseling given: No Counseling given: No Lives independently: Yes Household members: spouse Marital status: service: Yes Current occupational status: retired Pets and animals: No History of recent travel: No Current gender identity: Male Vitals/I&O/Wt Last Vital Signs Temp 98.1 F 11/25/21 17:00 Pulse 78 11/25/21 19:29 Resp 24 H 11/25/21 19:29 BP 127/63 11/25/21 19:29 Pulse Ox 91 11/25/21 19:21 O2 Del Method 11/25/21 19:21 Weight last 48 hrs Weight 65.771 kg Physical Exam Narrative: Patient looks dehydrated Currently semi-Cunningham in position On room air Bilateral breath sounds diminished at the bases Mild rhonchi noted Abdomen soft, bowel sound present No signs of edema Clinically looks dehydrated EOMI, PERRLA Nonfocal neuro exam at the bedside Variable S1-S2 Appropriate mood and affect Patient is consistently coughing Data : 11/25/21 18:30 11/25/21 18:30 A&P Assessment and plan (1) Pneumonia: Status: Acute (2) Pleural effusion, bilateral: Status: Acute (3) Generalized weakness: Status: Acute (4) NSIP (nonspecific interstitial pneumonia): Status: Acute Plan Community-acquired pneumonia Persistent coughing Currently not requiring oxygen Mild tachypnea Leukocytosis noted He is not septic at this point I will start him on ceftriaxone and azithromycin in case of worsening of leukocytosis low threshold to escalate to broader spectrum antibiotic because of recent hospitalization Sputum culture, bacterial antigen DuoNeb and budesonide to be administered D-dimer ruled out PE He also has moderate bilateral pleural effusion EF is preserved Clinically patient looks extremely dehydrated with concentrated urine however BNP is 16,000 I would like to give him IV fluid at 75 mill per hour just for overnight, reevaluate in the morning I do believe his CT scan of lung changes are chronic, likely lupus related Dr. Dai wanted to start CellCept however because of excessive side effects this was not pursued Recent echo reviewed DNR/DNI Cardiac diet His last Eliquis dose was at 1230 PM on 11/25, I am holding his anticoagulating agent in case thoracentesis is required Patient has worsening of his deconditioning Chronic kidney disease: No acute worsening A. fib without RVR Attestations Medical Necessity Statement*: Anticipating discharge within 48 hours, further clinical stay will be decided on his clinical progress Time Spent in Patient Care: 40 Coding Level of Care Code Acute Prizer Hand for Chg Fwd Diagnoses Pneumonia J18.9 Pleural effusion, bilateral J90 Generalized weakness R53.1 NSIP (nonspecific interstitial pneumonia) J84.89
--- NOTE | 2021-11-25 21:19 | ECG_ITS ---
[facility] Test Date: 2021-11-25 Pat Name: Isaac Blanco Department: Room: Gender: Male Proc Tech: : 1940 Requested By: Bo Interiano Order Number: [id number] Radha MD: Garcia Chaparro M.D. Measurements Intervals [place] Rate: 67 P: 65 [place]: 211 QRS: 39 QRSD: 118 T: 86 QT: 460 QTc: 489 Interpretive Statements SINUS RHYTHM WITH FIRST DEGREE AV BLOCK WITH OCCASIONAL SUPRAVENTRICULAR PREMATURE COMPLEXES MODERATE INTRAVENTRICULAR CONDUCTION DELAY [110+ ms QRS DURATION] NONSPECIFIC ST & T-WAVE ABNORMALITY PROLONGED QT INTERVAL Compared to ECG 11/25/2021 17:36:05 First degree AV block now present Prolonged QT interval now present Possible ischemia no longer present T-wave abnormality still present Electronically Signed On 11-27-2021 13:33:12 CDT by Garcia Chaparro M.D. [email or web address] NetworkInnovative Pulmonary Solutionsj.[id number]
[2021-11-25 21:20] LABS: NT Pro B Type Natriuretic Pept 16273 pg/mL (0-450)
[2021-11-25] MEDS: levofloxacin-dextrose 5 % 750 MG/150 ML PREMIX 100 MG IV (21:28)
[2021-11-25 21:48] LABS: Procalcitonin 0.07 ng/mL (0-0.5)
--- NOTE | 2021-11-25 22:19 | PC.NURSE ---
report called to Keely calderón at this time, accepted to med surg [id number] at this time.
[2021-11-25] MEDS: sodium chloride 0.9% 1,000 ML 75 ML IV (22:54)
--- NOTE | 2021-11-25 23:07 | PC.NURSE ---
ADMIT NOTE Pt received to room from ER at 2230. Alert and oriented. Says he has had a dry hacky cough and increasing SOB for last 3 weeks. Says he has taken po antibiotics without help. Has IV Levaquin finishing on arrival to floor. IV fluids of NS started at 75ml/hr rate. Denies pain with cough or breathing. VS check done and SCD's applied. RN to complete admission assessment
[2021-11-25] MEDS: budesonide 0.5 mg/2 mL Neb INHALATION (23:26)
--- NOTE | 2021-11-25 23:36 | ECG_ITS ---
[facility] Test Date: 2021-11-25 Pat Name: Isaac Blanco Department: Room: 254 Gender: Male Operator Lights: : 1940 Requested By: Bo Interiano Order Number: [id number] Radha MD: Garcia Chaparro M.D. Measurements Intervals [place] Rate: 67 P: 66 [place]: 207 QRS: 42 QRSD: 120 T: 60 QT: 460 QTc: 487 Interpretive Statements SINUS RHYTHM MODERATE INTRAVENTRICULAR CONDUCTION DELAY [110+ ms QRS DURATION] NONSPECIFIC ST & T-WAVE ABNORMALITY PROLONGED QT INTERVAL Compared to ECG 11/25/2021 21:19:09 First degree AV block no longer present T-wave abnormality still present Electronically Signed On 11-27-2021 13:22:20 CDT by Garcia Chaparro M.D. [email or web address] [email or web address]/[id number]
[2021-11-26] VITALS (7 sets, daily range): BP systolic 123–142; BP diastolic 74–89; PULSE 67–111; RESP 14–22; TEMP 36.4–36.8; O2SAT 91–97
--- NOTE | 2021-11-26 00:41 | ECG_ITS ---
[facility] Test Date: 2021-11-26 Pat Name: Isaac Blanco Department: Room: 254 Gender: Male House Worker General: : 1940 Requested By: Bo Interiano Order Number: [id number] Radha MD: Garcia Chaparro M.D. Measurements Intervals [place] Rate: 70 P: 70 [place]: 190 QRS: 37 QRSD: 132 T: 62 QT: 455 QTc: 493 Interpretive Statements SINUS RHYTHM WITH FREQUENT SUPRAVENTRICULAR PREMATURE COMPLEXES INTRAVENTRICULAR CONDUCTION DELAY [130+ ms QRS DURATION] Compared to ECG 11/25/2021 23:36:40 T-wave abnormality no longer present Prolonged QT interval no longer present Electronically Signed On 11-27-2021 13:30:48 CDT by Garcia Chaparro M.D. [email or web address] [email or web address]/[id number]
[2021-11-26 01:25] LABS: Basophils % 0.1 %; Eosinophils % 0.1 %; Hematocrit 32.2 % (42.0-52.0); Hemoglobin 10.5 g/dL (11.7-16.6); Lymphocytes # 0.8 10^3/uL (0.8-4.8); Lymphocytes % 7.4 %; Mean Corpuscular HGB Conc 32.6 g/dL (30.0-36.0); Mean Corpuscular Hemoglobin 29.2 pg (28.0-34.0); Mean Corpuscular Volume 89.4 fl (80-94); Mean Platelet Volume 10.8 fL (7.4-10.4); Monocytes # 1.1 10^3/uL (0.2-0.9); Neutrophils # 8.59 10^3/uL (1.8-7.7); Nucleated Red Blood Cells % 0 %; Platelet Count 277 10^3/cmm (130-400); Red Cell Distribution Width 15.8 % (12.1-15.1); White Blood Count 10.5 10^3/uL (4.0-10.0)
[2021-11-26 01:50] LABS: Blood Urea Nitrogen 24 mg/dL (8-23); C Reactive Protein 95.5 mg/L (0.0-4.9); Calcium 8.6 mg/dL (8.5-10.5); Carbon Dioxide 19 mmol/L (22-29); Chloride 98 mmol/L (98-107); Creatinine Clr Calc Pharmacy 32.3174; Glucose 91 mg/dL (65-115); Magnesium 1.9 mg/dL (1.7-2.3); Osmolality Calculated 276 mOsm/kg (285-295); Sodium 131 mmol/L (136-145)
[2021-11-26 01:51] LABS: Troponin 5 6HR 29.26 ng/L (0-15); Troponin 5 6HR Delta 4.26 ng/L (0-12)
[2021-11-26] MEDS: polyethylene glycol 3350 Pkt 17 gm PO (08:25)
[2021-11-26] MEDS: azithromycin 250 mg Tablet 500 MG PO (08:33)
[2021-11-26] MEDS: sennosides-docusate Tablet 1 TAB PO (08:34)
[2021-11-26] MEDS: ranolazine (12HR) 500 mg Tablet PO ×2 (08:34→17:33)
[2021-11-26] MEDS: aspirin 81 mg EC Tablet PO (08:34)
[2021-11-26] MEDS: pantoprazole DR 40 mg Tablet PO ×2 (08:34→17:33)
[2021-11-26] MEDS: cefTRIAXone 1,000 MG in sodium chloride 0.9% (plus) 50 ML 100 MG IV (08:36)
[2021-11-26] MEDS: ipratropium-albuterol 3 mL Neb INHALATION (08:50)
[2021-11-26] MEDS: artificial tears Op Soln 15 mL Btl 1 DROP OPHTHALMIC (17:33)
--- NOTE | 2021-11-26 18:24 | PM.PN ---
Subjective Subjective: 81-year-old male with cough shortness of breath for 3 weeks. States that walking makes him short of breath patient does not lay down flat due to difficulty breathing talking makes him short of breath. 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 Interestingly he has not had lupus symptoms or exacerbation in the preceding 80 years. Notably he does have renal dysfunction. He has been treated for pneumonia with elevated C-reactive protein but chest x-ray is negative for pneumonia and CT scan shows pleural effusions and increased pulmonary vasculature. The procalcitonin was negative on the ninth. Patient is accompanied by his . She states that he barely eats now he did do cardiac rehab and lost 12 pounds but has gained 12 of them back. She states that this was not a water weight and happened down over a month or 2 and then up over a month Vitals/I&O/Wt Last Vital Signs Temp 97.9 F 11/26/21 16:20 Pulse 82 11/26/21 16:20 Resp 18 11/26/21 16:20 BP 133/82 11/26/21 16:20 Pulse Ox 97 11/26/21 16:20 O2 Del Method 11/26/21 08:50 O2 Flow Rate 2 11/26/21 08:00 11/26/21 11/26/21 11/26/21 06:59 14:59 22:59 Intake Total 120 / 270 1270 / 1270 Output Total 700 / 700 225 / 225 Balance -580 / -430 1045 / 1045 Weight last 48 hrs Weight 64.138 kg Weight 65.771 kg Physical Exam Narrative: General well-developed elderly man appears his stated age CV regular rate and rhythm Lungs clear to auscultation bilaterally but there is decreased air movement in the bases Abdomen plus bowel sounds soft nontender calves nontender supratip edema Neck JVP only minimally elevated EKG nonspecific inferolateral ST-T wave changes Data : 11/26/21 00:55 11/26/21 00:55 Micro: Microbiology 11/26/21 01:50 Bacterial Antigens - Final Urine,Clean Catch 11/25/21 22:25 MRSA Culture - Final Nose Other data: Echocardiogram from 11/08/2021 showed EF 50 to 55% biatrial enlargement moderate to severe eccentric mitral regurgitation, moderate aortic regurgitation moderate pulmonary hypertension and mild tricuspid regurgitation Compared to 1221 the mitral regurgitation had worsened. A&P Assessment and plan (1) Pneumonia: I think the evidence for pneumonia is weak and that is not the ongoing diagnosis as he has been treated with multiple antibiotics procalcitonin is negative and he has no sputum He does have mildly elevated white count and also an elevated C-reactive protein Status: Acute (2) Pleural effusion, bilateral: Looks like his valvular heart disease and renal function has progressed. 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 To me the CT scan looks like pleural effusions and increased dependent fluid in the supine areas consistent with mild pulmonary edema patient noted to be continually coughing but nonproductive while I was in the room We will gently diurese given the recent IV contrast for CTA and also valvular heart disease Status: Acute (3) Generalized weakness: Continue with therapy Status: Acute (4) Atrial fibrillation: Rate is controlled Status: Acute Plan Community-acquired pneumonia Persistent coughing Currently not requiring oxygen Mild tachypnea Leukocytosis noted He is not septic at this point I will start him on ceftriaxone and azithromycin in case of worsening of leukocytosis low threshold to escalate to broader spectrum antibiotic because of recent hospitalization Sputum culture, bacterial antigen DuoNeb and budesonide to be administered D-dimer ruled out PE He also has moderate bilateral pleural effusion EF is preserved Clinically patient looks extremely dehydrated with concentrated urine however BNP is 16,000 I would like to give him IV fluid at 75 mill per hour just for overnight, reevaluate in the morning I do believe his CT scan of lung changes are chronic, likely lupus related Dr. Dai wanted to start CellCept however because of excessive side effects this was not pursued Recent echo reviewed DNR/DNI Cardiac diet His last Eliquis dose was at 1230 PM on 11/25, I am holding his anticoagulating agent in case thoracentesis is required Patient has worsening of his deconditioning Chronic kidney disease: No acute worsening A. fib without RVR Attestations Medical Necessity Statement*: Patient will remain in the hospital for treatment of dyspnea on exertion and cough. 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
[2021-11-26] MEDS: atorvastatin 40 mg Tablet PO (20:21)
[2021-11-26] MEDS: FUROsemide 10 mg/mL SDV 4mL 40 MG IVP (20:21)
[2021-11-27] VITALS (9 sets, daily range): BP systolic 111–148; BP diastolic 62–80; PULSE 81–120; RESP 14–20; TEMP 36.5–36.9; O2SAT 91–99
[2021-11-27 05:24] LABS: Basophils % 0.1 %; Eosinophils % 0.3 %; Hematocrit 33.6 % (42.0-52.0); Hemoglobin 10.8 g/dL (11.7-16.6); Lymphocytes # 0.8 10^3/uL (0.8-4.8); Lymphocytes % 7.6 %; Mean Corpuscular HGB Conc 32.1 g/dL (30.0-36.0); Mean Corpuscular Hemoglobin 29.4 pg (28.0-34.0); Mean Corpuscular Volume 91.6 fl (80-94); Mean Platelet Volume 10.8 fL (7.4-10.4); Monocytes # 1.2 10^3/uL (0.2-0.9); Monocytes % 10.6 %; Neutrophils % 80.8 %; Nucleated Red Blood Cells % 0 %; Platelet Count 263 10^3/cmm (130-400); Red Blood Count 3.67 10^6/uL (4.1-5.3); Red Cell Distribution Width 15.9 % (12.1-15.1); White Blood Count 10.9 10^3/uL (4.0-10.0)
[2021-11-27 05:50] LABS: Anion Gap 18.4 (5-19); Blood Urea Nitrogen 23 mg/dL (8-23); C Reactive Protein 120.9 mg/L (0.0-4.9); Calcium 8.7 mg/dL (8.5-10.5); Carbon Dioxide 21 mmol/L (22-29); Chloride 100 mmol/L (98-107); Glucose 115 mg/dL (65-115); Osmolality Calculated 287 mOsm/kg (285-295); Potassium 3.4 mmol/L (3.5-5.1); Sodium 136 mmol/L (136-145)
[2021-11-27 05:55] LABS: Creatinine Clr Calc Pharmacy 32.3174
[2021-11-27] MEDS: azithromycin 250 mg Tablet 500 MG PO (09:26)
[2021-11-27] MEDS: ranolazine (12HR) 500 mg Tablet PO ×2 (09:26→17:36)
[2021-11-27] MEDS: aspirin 81 mg EC Tablet PO (09:27)
[2021-11-27] MEDS: pantoprazole DR 40 mg Tablet PO ×2 (09:27→17:36)
[2021-11-27] MEDS: sennosides-docusate Tablet 1 TAB PO (09:27)
[2021-11-27] MEDS: dexamethasone 4 mg Tablet PO (09:27)
[2021-11-27] MEDS: cefTRIAXone 1,000 MG in sodium chloride 0.9% (plus) 50 ML 100 MG IV (09:28)
[2021-11-27] MEDS: polyethylene glycol 3350 Pkt 17 gm PO (09:31)
[2021-11-27] MEDS: artificial tears Op Soln 15 mL Btl 1 DROP OPHTHALMIC ×2 (10:04→18:16)
--- NOTE | 2021-11-27 13:45 | P.PN_ITS ---
Subjective Subjective: 81-year-old male with cough shortness of breath for 3 weeks. States that walking makes him short of breath patient does not lay down flat due to difficulty breathing talking makes him short of breath. 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 Interestingly he has not had lupus symptoms or exacerbation in the preceding 80 years. Notably he does have renal dysfunction. He has been treated for pneumonia with elevated C-reactive protein but chest x-ray is negative for pneumonia and CT scan shows pleural effusions and increased pulmonary vasculature. The procalcitonin was negative on the ninth. Patient is accompanied by his . She states that he barely eats now he did do cardiac rehab and lost 12 pounds but has gained 12 of them back. She states that this was not a water weight and happened down over a month or 2 and then up over a month Overnight the patient's cough is slightly improved. He tells me after going to bathroom that he feels somewhat winded. Medications: Reviewed: Yes Vitals/I&O/Wt Last Vital Signs Temp 97.8 F 11/27/21 12:00 Pulse 101 H 11/27/21 13:25 Resp 18 11/27/21 13:25 BP 111/66 11/27/21 12:00 Pulse Ox 94 11/27/21 13:25 O2 Del Method 11/27/21 13:25 O2 Flow Rate 2 11/27/21 10:00 11/26/21 11/27/21 11/27/21 22:59 06:59 14:59 Intake Total 410 / 410 Output Total 900 / 1125 1600 / 2725 400 / 400 Balance -900 / 145 -1600 / -1455 Weight last 48 hrs Weight 65.952 kg Weight 64.138 kg Weight 65.771 kg Physical Exam Narrative: General well-developed elderly man appears his stated age CV irregular rate and rhythm Lungs clear to auscultation bilaterally but there is decreased air movement in the bases Abdomen plus bowel sounds soft nontender calves nontender supratip edema Neck not elevated EKG nonspecific inferolateral ST-T wave changes Data : 11/27/21 04:28 11/27/21 04:28 Micro: Microbiology 11/26/21 01:50 Bacterial Antigens - Final Urine,Clean Catch 11/25/21 22:25 MRSA Culture - Final Nose A&P Assessment and plan (1) Pneumonia: I think the evidence for pneumonia is weak and that is not the ongoing diagnosis as he has been treated with multiple antibiotics procalcitonin is negative and he has no sputum He does have mildly elevated white count and also an elevated C-reactive protein Status: Acute (2) Pleural effusion, bilateral: Looks like his valvular heart disease and renal function has progressed. 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 To me the CT scan looks like pleural effusions and increased dependent fluid in the supine areas consistent with mild pulmonary edema patient noted to be continually coughing but nonproductive while I was in the room We will gently diurese given the recent IV contrast for CTA and also valvular heart disease Status: Acute (3) Generalized weakness: Continue with physical and ccupational therapy Status: Acute (4) Atrial fibrillation: Heart rate too fast we will pursue rate control with beta-sharri Status: Acute Plan I am not convinced that the patient has pneumonia I think he has valvular heart disease with tachycardia related to A. fib. We will slow the heart rate down continue with diuresis and consult his collections technician Dr. Chaparro continue with low-dose Eliquis Attestations Medical Necessity Statement*: Additional 1-2 midnights in the hospital Time Spent in Patient Care: 35 minutes spent in evaluation and coordination of care for this patient today Coding Level of Care Code Acute Pressure Control Supervisor for Eleazar Hargrove History Comprehensive Exam Detailed Medical Decision Making High Complexity Diagnoses Pneumonia J18.9 Pleural effusion, bilateral J90 Generalized weakness R53.1 Atrial fibrillation I48.91
--- NOTE | 2021-11-27 14:25 | PM.CONSULT ---
Providers/Reason For Consult Consulting Physician/Specialty*: Garcia Chaparro MD/ Cardiology Reason for Consult*: Congestive heart failure Requesting Physician: Dr Torres Attending Physician: Zhou Torres MD Primary Care Provider: Nikita Mosher MD History of Present Illness History of Present Illness Isaac Blanco is a 81 year old male with past medical history of CAD, atrial fibrillation, persistent groundglass opacities on chest imaging, generalized weakness who has been admitted to the hospital for productive cough for the last 7 to 10 days. He was being treated for bronchitis. He denies chest pain. His heart rate is elevated and is in afib with RVR. Not on tele monitoring. Cardiology was consulted as has pleural effusions and possibility of congestive heart failure. Recent echo showed preserver LV systolic function. He was found to have moderate to severe mitral regurgitation. Review of Systems Const: Reports: chills, body aches, change in appetite, change in weight, fatigue and malaise Eyes: Denies: change in vision ENMT: Denies: throat pain Card: Reports: dyspnea on exertion and orthopnea; Denies: chest pain Resp: Reports: dyspnea and productive cough GI: Reports: nausea : Denies: flank pain Musc: Reports: back pain Skin/Breast: Denies: rash Neuro: Denies: headache(s) Psych: Denies: anxiety Endo: Denies: polyuria Ever/Lymph: Denies: easy bruising All/Imm: Denies: urticaria Medications/Allergies Home Medications Medication Instructions Recorded Confirmed Last Taken Type saw palmetto 450 mg capsule 450 mg PO BID 08/21/19 11/26/21 11/07/21 History atorvastatin 40 mg tablet 40 mg PO BEDTIME 02/17/20 11/26/21 11/06/21 History magnesium 250 mg tablet 250 mg PO DAILY 02/17/20 11/26/21 11/07/21 History multivitamin 1 tab PO DAILY 02/17/20 11/26/21 11/07/21 History nitroglycerin 0.4 mg sublingual 0.4 mg sublingual Q5M PRN chest 02/17/20 11/26/21 06/17/21 History tablet pains pantoprazole 40 mg tablet,delayed 40 mg PO BID 09/27/20 11/26/21 11/07/21 History release gabapentin 100 mg capsule 100 mg PO BEDTIME 02/10/21 11/26/21 11/06/21 History polyethylene glycol 3350 17 gram 17 g PO QAM 02/27/21 11/26/21 11/07/21 History oral powder packet (Miralax) fluticasone propionate 50 2 spray intranasal DAILY PRN 03/04/21 11/26/21 03/15/21 History mcg/actuation nasal Allergy Symptoms spray,suspension vitamin B complex 1 tab PO DAILY 03/04/21 11/26/21 11/07/21 History ranolazine 500 mg tablet,extended 500 mg PO BID #180 tabs 03/28/21 11/26/21 11/07/21 Rx release,12 hr metoprolol tartrate 50 mg tablet 50 mg PO BID #180 tabs 04/29/21 11/26/21 11/07/21 Rx apixaban 5 mg tablet (Eliquis) 2.5 mg PO BID 05/03/21 11/26/21 11/07/21 History carboxymethylcellulose sodium 1 % 1 drp ophthalmic (eye) BID 06/17/21 11/26/21 11/07/21 History eye drops (Artificial Tears (carboxymethylcellulose)) clopidogrel 75 mg tablet 75 mg PO QAM 06/17/21 11/26/21 11/07/21 History aspirin 81 mg tablet,delayed 81 mg PO DAILY 08/04/21 11/26/21 11/07/21 History release (Adult Aspirin Regimen) albuterol sulfate 90 mcg/actuation 1 inh inhalation QID PRN shortness 11/04/21 11/26/21 Unknown Rx aerosol inhaler (Ventolin HFA) of breath or wheezing #8.5 grams isosorbide mononitrate 60 mg 60 mg PO DAILY #30 tabs 11/08/21 11/26/21 Unknown Rx tablet,extended release 24 hr Allergies Allergy/AdvReac Type Severity Reaction Status Date / Time hydrocodone Allergy Severe Unknown Verified 11/07/21 19:17 codeine Allergy Unknown Unknown Verified 11/07/21 19:17 Current Medications Generic Name Dose Route Start Last Admin Trade Name Freq PRN Reason Stop Dose Admin Albuterol/Ipratropium 3 ml 11/25/21 22:37 11/26/21 08:50 Ipratropium-Albuterol 3 Ml Neb INHALATION 3 ml Q6H PRN Administration SHORTNESS OF BREATH Artificial Tears 1 drop 11/26/21 09:00 11/27/21 10:04 Artificial Tears Op Soln 15 Ml Btl OPHTHALMIC 1 drop BID MISSY Administration Aspirin 81 mg 11/26/21 09:00 11/27/21 09:27 Aspirin 81 Mg Ec Tablet PO 81 mg DAILY MISSY Administration Atorvastatin Calcium 40 mg 11/26/21 21:00 11/26/21 20:21 Atorvastatin 40 Mg Tablet PO 40 mg BEDTIME MISSY Administration Pantoprazole Sodium 40 mg 11/26/21 09:00 11/27/21 09:[address] 40 Mg Tablet PO 40 mg BID MISSY Administration Polyethylene Glycol 17 gm 11/27/21 09:00 11/27/21 09:31 Polyethylene Glycol 3350 Pkt 17 Gm PO 17 gm DAILY MISSY Administration Ranolazine 500 mg 11/26/21 09:00 11/27/21 09:26 Ranolazine (12hr) 500 Mg Tablet PO 500 mg BID MISSY Administration Senna/Docusate Sodium 1 tab 11/26/21 09:00 11/27/21 09:27 Sennosides-Docusate Tablet PO 1 tab DAILY MISSY Administration PFSH Acute PFSH: Medical History (Updated 11/28/21 @ 11:41 by Garcia Chaparro M.D) Acute viral syndrome Anticoagulation adequate with anticoagulant therapy Atherosclerotic heart disease of [place] coronary artery with unstable angina pectoris Last echocardiogram EF 50%, mild mitral and atrial regurgitation February 2021 Atrial fibrillation CAD (coronary artery disease) Cervical stenosis of spinal canal Cervical stenosis of spinal canal CKD (chronic kidney disease) COVID-19 resolved, Mar 2020 Dyslipidemia Essential hypertension GERD (gastroesophageal reflux disease) Ground glass opacity present on imaging of lung History of nonmelanoma skin cancer Hyperlipidemia Inflammatory arthritis Ischemic cardiomyopathy NSIP (nonspecific interstitial pneumonia) NSTEMI (non-ST elevated myocardial infarction) Peripheral neuropathy SLE (systemic lupus erythematosus related syndrome) Sleep apnea TIA (transient ischemic attack) Surgical History History of coronary angiogram History of neck surgery History of shoulder surgery History of surgery on wrist Family History Other CAD (coronary artery disease) Diabetes Hypertension Denies family history of Rheumatoid arthritis Lupus Lung disease Cancer Stroke Social History Smoking and tobacco status: former smoker Quit status (tobacco): has quit using tobacco Year quit tobacco: 1959 Former quit date comment: Hx of 1 PPD x 10 Years Second hand smoke exposure: No Smoking risk assessment/counseling performed?: Yes Alcohol intake: never Counseling given: No Counseling given: No Lives independently: Yes Household members: spouse Marital status: service: Yes Current occupational status: retired Pets and animals: No History of recent travel: No Current gender identity: Male Vitals/I&O/Wt Last Vital Signs Temp 97.8 F 11/27/21 12:00 Pulse 101 H 11/27/21 13:25 Resp 18 11/27/21 13:25 BP 111/66 11/27/21 12:00 Pulse Ox 94 11/27/21 13:25 O2 Del Method 11/27/21 13:25 O2 Flow Rate 2 11/27/21 10:00 11/26/21 11/27/21 11/27/21 22:59 06:59 14:59 Intake Total 650 / 650 Output Total 900 / 1125 1600 / 2725 400 / 400 Balance -900 / 145 -1600 / -1455 250 / 250 Weight last 48 hrs Weight 145 lb 6.4 oz Weight 141 lb 6.4 oz Weight 145 lb Physical Exam Narrative: GENERAL: Patient is alert, awake and oriented x3. [] NECK: No jugular vein distension. [] HEENT: No cyanosis. No icterus. No pallor. [] HEART: irregularly irregular,S1 and S2. Grade 3/6 systolic murmur, rub or gallop. [] LUNGS: Diminished breath sounds ABDOMEN: Soft, nontender and nondistended. Positive bowel sounds. No guarding, rebound or tenderness. [] CENTRAL NERVOUS SYSTEM: Grossly nonfocal. [] EXTREMITIES: Lower extremities with 1+ edema bilaterally. Pulses palpable in the lower extremities, both dorsalis pedis and posterior tibial. [] Data : 11/28/21 04:40 11/28/21 04:40 Micro: Microbiology 11/26/21 01:50 Bacterial Antigens - Final Urine,Clean Catch 11/25/21 22:25 MRSA Culture - Final Nose A&P Assessment and plan (1) Pleural effusion, bilateral: Status: Acute (2) CAD (coronary artery disease): Status: Acute (3) Atrial fibrillation with RVR: Status: Acute (4) Dyslipidemia: Status: Acute Plan Patient has afib with RVR and pleural effusions. He also likely has inflammatory/infectious process going on. He is not on telemetry monitoring at this time. Start telemetry monitoring. We will start metoprolol 25mg twice daily. Patient had PCI within the last 1 year. We will restart Plavix. Continue Eliquis. Can hold aspirin. Low-dose Lasix can be started. Monitor renal function If heart rates stay uncontrolled, can start on amiodarone drip. He has moderate to severe mitral regurgitation. Can be evaluated further as outpatient with transesophageal echocardiogram. Thank you for involving us with care of this patient. We will continue to follow. Please call with questions. Consult Attestations Medical Necessity Statement: Care expected to cross 2 midnights. Coding Level of Care Code Acute Equipment Engineer for Eleazar Hargrove Diagnoses Pleural effusion, bilateral J90 CAD (coronary artery disease) I25.10 Atrial fibrillation with RVR I48.91 Dyslipidemia E78.5
[2021-11-27] MEDS: apixaban 5 mg Tablet 2.5 MG PO (19:54)
[2021-11-27] MEDS: atorvastatin 40 mg Tablet PO (19:55)
[2021-11-28] VITALS (9 sets, daily range): BP systolic 111–125; BP diastolic 67–76; PULSE 85–144; RESP 15–18; TEMP 36.5–36.9; O2SAT 92–98
[2021-11-28 04:53] LABS: Basophils % 0.1 %; Hematocrit 30.8 % (42.0-52.0); Hemoglobin 10.4 g/dL (11.7-16.6); Lymphocytes # 0.6 10^3/uL (0.8-4.8); Lymphocytes % 3.8 %; Mean Corpuscular HGB Conc 33.8 g/dL (30.0-36.0); Mean Corpuscular Hemoglobin 29.4 pg (28.0-34.0); Mean Platelet Volume 10.6 fL (7.4-10.4); Monocytes % 6.6 %; Neutrophils # 13.42 10^3/uL (1.8-7.7); Neutrophils % 88.9 %; Nucleated Red Blood Cells % 0 %; Platelet Count 277 10^3/cmm (130-400); Red Blood Count 3.54 10^6/uL (4.1-5.3); Red Cell Distribution Width 15.6 % (12.1-15.1); White Blood Count 15.1 10^3/uL (4.0-10.0)
[2021-11-28 04:54] LABS: Erythrocyte Sedimentation Rate 63 mm/hr (0-10)
[2021-11-28 05:08] LABS: Alanine Aminotransferase 31 U/L (0-41); Albumin Level 2.9 g/dL (3.5-5.2); Alkaline Phosphatase 57 U/L (40-130); Anion Gap 16.4 (5-19); Aspartate Amino Transferase 31 U/L (0-40); Blood Urea Nitrogen 24 mg/dL (8-23); Calcium 8.7 mg/dL (8.5-10.5); Carbon Dioxide 22 mmol/L (22-29); Chloride 97 mmol/L (98-107); Globulin 4.1 g/dL (1.3-4.6); Glucose 143 mg/dL (65-115); Magnesium 2.1 mg/dL (1.7-2.3); Osmolality Calculated 281 mOsm/kg (285-295); Phosphorus 2.5 mg/dL (2.5-4.5); Potassium 3.4 mmol/L (3.5-5.1); Sodium 132 mmol/L (136-145)
[2021-11-28] MEDS: sennosides-docusate Tablet 1 TAB PO (08:33)
[2021-11-28] MEDS: artificial tears Op Soln 15 mL Btl 1 DROP OPHTHALMIC ×2 (08:33→17:34)
[2021-11-28] MEDS: ranolazine (12HR) 500 mg Tablet PO ×2 (08:33→17:34)
[2021-11-28] MEDS: polyethylene glycol 3350 Pkt 17 gm PO (08:33)
[2021-11-28] MEDS: pantoprazole DR 40 mg Tablet PO ×2 (08:33→17:34)
[2021-11-28] MEDS: aspirin 81 mg EC Tablet PO (08:34)
[2021-11-28] MEDS: apixaban 5 mg Tablet 2.5 MG PO ×2 (08:35→19:41)
--- NOTE | 2021-11-28 12:31 | PM.PN ---
Subjective Subjective: Patient is stable. On room air Vitals/I&O/Wt Last Vital Signs Temp 97.9 F 11/28/21 12:00 Pulse 115 H 11/28/21 12:00 Resp 16 11/28/21 12:00 BP 114/74 11/28/21 12:00 Pulse Ox 92 11/28/21 12:00 O2 Del Method 11/28/21 12:00 O2 Flow Rate 2 11/27/21 10:00 11/27/21 11/28/21 11/28/21 22:59 06:59 14:59 Intake Total 360 / 360 Output Total 200 / 600 500 / 1100 Balance -200 / 50 -500 / -450 360 / 360 Weight last 48 hrs Weight 148 lb 14.4 oz Weight 145 lb 6.4 oz Physical Exam Narrative: GENERAL: Patient is alert, awake and oriented x3. [] NECK: No jugular vein distension. [] HEENT: No cyanosis. No icterus. No pallor. [] HEART: irregularly irregular,S1 and S2. Grade 3/6 systolic murmur, rub or gallop. [] LUNGS: Diminished breath sounds ABDOMEN: Soft, nontender and nondistended. Positive bowel sounds. No guarding, rebound or tenderness. [] CENTRAL NERVOUS SYSTEM: Grossly nonfocal. [] EXTREMITIES: Lower extremities with 1+ edema bilaterally. Pulses palpable in the lower extremities, both dorsalis pedis and posterior tibial. [] Data : 11/29/21 04:33 11/29/21 04:33 Micro: Microbiology 11/28/21 04:45 Blood Culture - Preliminary Blood SPECIMEN COLLECTED 11/28/21 04:40 Blood Culture - Preliminary Blood SPECIMEN COLLECTED A&P Assessment and plan (1) Pleural effusion, bilateral: Status: Acute (2) CAD (coronary artery disease): Status: Acute (3) Atrial fibrillation with RVR: Status: Acute (4) Dyslipidemia: Status: Acute Plan Patient has afib with RVR and pleural effusions. He also likely has inflammatory/infectious process going on. Metoprolol started. Heart rates are better controlled. Patient had PCI within the last 1 year. We will restart Plavix. Continue Eliquis. Can hold aspirin. Low-dose Lasix. Monitor renal function If heart rates stay uncontrolled, can start on amiodarone drip. He has moderate to severe mitral regurgitation. Outpatient cardiology workup for moderate to severe mitral regurgitation Thank you for involving us with care of this patient. We will continue to follow. Please call with questions. Attestations Medical Necessity Statement*: Care expected to cross 2 midnights. Coding Level of Care Code Acute Ophthalmologist Retina Specialist for Eleazar Fwd Diagnoses Pleural effusion, bilateral J90 CAD (coronary artery disease) I25.10 Atrial fibrillation with RVR I48.91 Dyslipidemia E78.5
[2021-11-28] MEDS: metoprolol tartrate 25 mg Tablet PO ×2 (12:42→19:41)
[2021-11-28] MEDS: clopidogrel 75 mg Tablet PO (12:42)
[2021-11-28] MEDS: benzonatate 100 mg Capsule PO ×3 (13:37→23:13)
--- NOTE | 2021-11-28 15:34 | P.PN_ITS ---
Subjective Subjective: Patient was seen and examined this morning , was complaining of coughing. Continue to be in A. fib, has been started on metoprolol. Medications: Reviewed: Yes Medication Review Details: Generic Name Dose Route Start Last Admin Trade Name Freq PRN Reason Stop Dose Admin Albuterol/Ipratrop ium 3 ml 11/25/21 22:37 11/26/21 08:50 Ipratropium-Albu terol 3 Ml Neb INHALATION 3 ml Q6H PRN Administration SHORTNESS OF ALVARADO TH Apixaban 2.5 mg 11/27/21 21:00 11/28/21 08:35 Apixaban 5 Mg Ta blet PO 2.5 mg BID@00,2100 MISSY Administration Artificial Tears 1 drop 11/26/21 09:00 11/28/21 08:33 Artificial Tears Op Soln 15 Ml Btl OPHTHALMIC 1 drop BID MISSY Administration Aspirin 81 mg 11/26/21 09:00 11/28/21 08:34 Aspirin 81 Mg Ec Tablet PO 81 mg DAILY MISSY Administration Atorvastatin Calci um 40 mg 11/26/21 21:00 11/27/21 19:55 Atorvastatin 40 Mg Tablet PO 40 mg BEDTIME MISSY Administration Benzonatate 100 mg 11/28/21 11:38 11/28/21 13:37 Benzonatate 100 Mg Capsule PO 100 mg TID PRN Administration COUGH Clopidogrel Bisulf ate 75 mg 11/28/21 12:30 11/28/21 12:42 Clopidogrel 75 M g Tablet PO 75 mg DAILY MISSY Administration Metoprolol Tartrat e 25 mg 11/28/21 11:45 11/28/21 12:42 Metoprolol Tartr ate 25 Mg Tablet PO 25 mg BID@899,2099 MISSY Administration Pantoprazole Sodiu m 40 mg 11/26/21 09:00 11/28/21 08:[address] 40 Mg Tablet PO 40 mg BID MISSY Administration Polyethylene Glyco l 17 gm 11/27/21 09:00 11/28/21 08:33 Polyethylene Gly col 3350 Pkt 17 Gm PO 17 gm DAILY MISSY Administration Ranolazine 500 mg 11/26/21 09:00 11/28/21 08:33 Ranolazine (12hr ) 500 Mg Tablet PO 500 mg BID MISSY Administration Senna/Docusate Sod ium 1 tab 11/26/21 09:00 11/28/21 08:33 Sennosides-Docus ate Tablet PO 1 tab DAILY MISSY Administration Vitals/I&O/Wt Last Vital Signs Temp 97.9 F 11/28/21 12:00 Pulse 115 H 11/28/21 12:00 Resp 16 11/28/21 12:00 BP 114/74 11/28/21 12:00 Pulse Ox 92 11/28/21 12:00 O2 Del Method 11/28/21 12:00 O2 Flow Rate 2 11/27/21 10:00 11/28/21 11/28/21 11/28/21 06:59 14:59 22:59 Intake Total 600 / 600 Output Total 500 / 1100 Balance -500 / -450 600 / 600 Weight last 48 hrs Weight 67.54 kg Weight 65.952 kg Physical Exam Const: COMMON NORMALS: patient oriented x3 Resp: COMMON NORMALS: normal respiratory effort, No retractions, No use of accessory muscles and clear to auscultation bilaterally EFFORT & INSPECTION: Yes symmetric chest movement AUSCULTATION: clear to auscultation bilaterally Cardio: COMMON NORMALS: No gallops present (Cardio), No murmurs present (Cardio), No rub (Cardio) and Peripheral pulses 2+ throughout PERIPHERAL PULSES: Peripheral pulses 2+ throughout OTHER: Irregularly irregular rhythm, S1-S2 variable intensity, pansystolic murmur in mitral area GI: COMMON NORMALS: Normal to inspection, nondistended, normoactive bowel sounds present, Soft to palpation, non-tender, No hepatosplenomegaly present and no masses AUSCULTATION: Yes normoactive bowel sounds PALPATION: Yes Soft to palpation and Yes No hepatosplenomegaly present RECTAL EXAM: Yes deferred Extremity: COMMON NORMALS: no clubbing, cyanosis or edema and no pedal edema Neuro: COMMON NORMALS: patient oriented x3 Data : 11/28/21 04:40 11/28/21 04:40 Micro: Microbiology 11/28/21 04:45 Blood Culture - Preliminary Blood SPECIMEN COLLECTED 11/28/21 04:40 Blood Culture - Preliminary Blood SPECIMEN COLLECTED A&P Assessment and plan (1) Pneumonia: I think the evidence for pneumonia is weak and that is not the ongoing diagnosis as he has been treated with multiple antibiotics procalcitonin is negative and he has no sputum He does have mildly elevated white count and also an elevated C-reactive protein Status: Acute (2) Pleural effusion, bilateral: Looks like his valvular heart disease and renal function has progressed. 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 To me the CT scan looks like pleural effusions and increased dependent fluid in the supine areas consistent with mild pulmonary edema patient noted to be continually coughing but nonproductive while I was in the room We will gently diurese given the recent IV contrast for CTA and also valvular heart disease Status: Acute (3) Generalized weakness: Continue with physical and ccupational therapy Status: Acute (4) Atrial fibrillation: Heart rate too fast we will pursue rate control with beta-sharri Status: Acute Plan I am not convinced that the patient has pneumonia I think he has valvular heart disease with tachycardia related to A. fib. We will slow the heart rate down continue with diuresis and consult his director of academic support Dr. Chaparro continue with low-dose Eliquis Attestations Medical Necessity Statement*: patient in hospital for management of A. fib. Coding Level of Care Code Acute Erp Analyst for [facility] Fwd Diagnoses Pneumonia J18.9 Pleural effusion, bilateral J90 Generalized weakness R53.1 Atrial fibrillation I48.91
[2021-11-28] MEDS: atorvastatin 40 mg Tablet PO (19:42)
--- NOTE | 2021-11-28 22:17 | PC.NURSE ---
Patient given PRN Tessalon Jovanna and still c/o excessive coughing. Dr. Azar notified. Tessalon Jovanna dose increased.
[2021-11-29] VITALS (10 sets, daily range): BP systolic 107–118; BP diastolic 66–74; PULSE 80–95; RESP 16–20; TEMP 36.4–36.6; O2SAT 92–97
[2021-11-29 04:56] LABS: Basophils % 0.1 %; Hematocrit 30.6 % (42.0-52.0); Lymphocytes # 1.2 10^3/uL (0.8-4.8); Lymphocytes % 8.1 %; Mean Corpuscular HGB Conc 32.7 g/dL (30.0-36.0); Mean Corpuscular Volume 88.7 fl (80-94); Mean Platelet Volume 10.6 fL (7.4-10.4); Monocytes # 1.4 10^3/uL (0.2-0.9); Neutrophils % 82.2 %; Nucleated Red Blood Cells % 0 %; Platelet Count 270 10^3/cmm (130-400); Red Blood Count 3.45 10^6/uL (4.1-5.3); Red Cell Distribution Width 15.9 % (12.1-15.1)
[2021-11-29 05:26] LABS: Alanine Aminotransferase 49 U/L (0-41); Alkaline Phosphatase 59 U/L (40-130); Anion Gap 17.8 (5-19); Aspartate Amino Transferase 52 U/L (0-40); Blood Urea Nitrogen 32 mg/dL (8-23); Calcium 8.7 mg/dL (8.5-10.5); Carbon Dioxide 22 mmol/L (22-29); Chloride 99 mmol/L (98-107); Globulin 3.9 g/dL (1.3-4.6); Glucose 114 mg/dL (65-115); Osmolality Calculated 288 mOsm/kg (285-295); Potassium 3.8 mmol/L (3.5-5.1); Sodium 135 mmol/L (136-145); Total Protein 6.9 g/dL (6.6-8.7)
[2021-11-29] MEDS: benzonatate 100 mg Capsule 200 MG PO (07:31)
--- NOTE | 2021-11-29 07:42 | P.PN_ITS ---
Subjective Subjective: Patient is stable. Feeling better. Vitals/I&O/Wt Last Vital Signs Temp 97.7 F 11/29/21 04:00 Pulse 85 11/29/21 04:26 Resp 16 11/29/21 04:00 BP 110/72 11/29/21 04:00 Pulse Ox 92 11/29/21 04:00 O2 Del Method 11/28/21 20:00 O2 Flow Rate 2 11/27/21 10:00 11/28/21 11/29/21 11/29/21 22:59 06:59 14:59 Intake Total 240 / 840 300 / 1140 Output Total 300 / 300 400 / 700 Balance -60 / 540 -100 / 440 Weight last 48 hrs Weight 148 lb 14.4 oz Weight 145 lb 6.4 oz Physical Exam Narrative: GENERAL: Patient is alert, awake and oriented x3. [] NECK: No jugular vein distension. [] HEENT: No cyanosis. No icterus. No pallor. [] HEART: irregularly irregular,S1 and S2. Grade 3/6 systolic murmur, rub or gallop. [] LUNGS: Diminished breath sounds ABDOMEN: Soft, nontender and nondistended. Positive bowel sounds. No guarding, rebound or tenderness. [] CENTRAL NERVOUS SYSTEM: Grossly nonfocal. [] EXTREMITIES: Lower extremities with 1+ edema bilaterally. Pulses palpable in the lower extremities, both dorsalis pedis and posterior tibial. [] Data : 11/29/21 04:33 11/29/21 04:33 Micro: Microbiology 11/28/21 04:45 Blood Culture - Preliminary Blood NEGATIVE TO DATE 11/28/21 04:40 Blood Culture - Preliminary Blood NEGATIVE TO DATE A&P Assessment and plan (1) Pleural effusion, bilateral: Status: Inactive (2) CAD (coronary artery disease): Status: Acute (3) Atrial fibrillation with RVR: Status: Resolved (4) Dyslipidemia: Status: Inactive Plan Patient has afib with RVR and pleural effusions. He also likely has inflammatory/infectious process going on. Heart rates are controlled. Continue metoprolol Patient had PCI within the last 1 year. Stop aspirin. Conitnue plavix and eliquis Low-dose Lasix. He has moderate to severe mitral regurgitation. Outpatient cardiology workup for moderate to severe mitral regurgitation Thank you for involving us with care of this patient. We will continue to follow. Please call with questions. Attestations Medical Necessity Statement*: Care expected to cross 2 midnights. Coding Level of Care Code Acute Business Account Leader for [facility] Fwd Diagnoses Pleural effusion, bilateral J90 CAD (coronary artery disease) I25.10 Atrial fibrillation with RVR I48.91 Dyslipidemia E78.5
[2021-11-29] MEDS: apixaban 5 mg Tablet 2.5 MG PO (09:57)
[2021-11-29] MEDS: metoprolol tartrate 25 mg Tablet PO (09:57)
[2021-11-29] MEDS: artificial tears Op Soln 15 mL Btl 1 DROP OPHTHALMIC (09:58)
[2021-11-29] MEDS: pantoprazole DR 40 mg Tablet PO (09:58)
[2021-11-29] MEDS: ranolazine (12HR) 500 mg Tablet PO (09:58)
[2021-11-29] MEDS: aspirin 81 mg EC Tablet PO (09:58)
[2021-11-29] MEDS: clopidogrel 75 mg Tablet PO (09:58)
--- NOTE | 2021-11-29 13:11 | PC.SOCIAL ---
Pg 2 IMM. Explained to pt Pg 2 IMM. No questions voiced. Provided pt a copy. Initialed, dated, & timed a copy & placed in chart.
--- NOTE | 2021-12-07 10:42 | P.DS_ITS ---
Discharge Providers Date of Admission: 11/26/21 19:06 Date of Discharge: November 29, 2021 Attending Provider at Admission: Semaj Malik MD Attending Provider at Discharge: Rakesh Rivas MD Primary Care Provider: Nikita Mosher MD Diagnoses at Discharge Discharge Diagnosis (1) Pleural effusion, bilateral: Status: Inactive (2) CAD (coronary artery disease): Status: Acute (3) Atrial fibrillation with RVR: Status: Acute (4) Dyslipidemia: Status: Inactive Reason for Visit Reason for Visit: Coughing Hospital Course Hospital Course HPI: Semaj Malik MD Isaac Blanco is a 81 year old male has been experiencing shortness of breath with productive cough for last 7 to 10 days, his PCP prescribed Augmentin for bronchitis however that did not help he was seen by PCP again on 11/23 at that time he received steroids however symptoms has gotten worse and he decided come to the ER for further evaluation. He has? history of coronary disease, ARLETH on CPAP, AAA 3.7 cm, Follows up with Dr. Dai for persistent groundglass opacities on chest imaging, chronic kidney disease, A. fib, chronic anticoagulation with Eliquis, was recently discharged on 11/07 after management of generalized weakness, had MRI was unremarkable, he is DNR/DNI. 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 Please note CT scan from 03/12/2020 showed groundglass opacities right hemithorax asymmetrical pulmonary edema.? Dr. Dai recommended auto CPAP instead of BiPAP which sometimes can worsen central apneas His brought him to the hospital because of worsening of symptoms, patient's symptoms started productive cough, white sputum production, he has been consistently coughing for the last 1 to 2 weeks, no fever, chest pain or diarrhea.? is stating that the only time his coughing would stop is at the time of sleep.? He has been using his CPAP which is auto titratable, patient is extremely dehydrated he has not eaten well in last few days.? Because of excessive coughing today he started experiencing soreness in his chest that is why he came to the hospital for further evaluation. Hospital Course : Initially he was admitted for the management of CAP and was kept on abxs but later it was thought that his sob is coming from a.fib as well as also has some valvular component, abxs were discontinued cardiology was consulted he was started on beta blockers as well as diuresis.And responded well to this , he was discharged on metoprolol .T 50 MG PO BID , aspirin was discontinued he was continued on plavix as well as xaralto.Patient will follow cardiology as outpatient. Physical Exam Const: COMMON NORMALS: patient oriented x3 Resp: COMMON NORMALS: normal respiratory effort, No retractions, No use of accessory muscles and clear to auscultation bilaterally EFFORT & INSPECTION: Yes symmetric chest movement AUSCULTATION: clear to auscultation bilaterally Cardio: COMMON NORMALS: No gallops present (Cardio), No murmurs present (Cardio), No rub (Cardio) and Peripheral pulses 2+ throughout PERIPHERAL PULSES: Peripheral pulses 2+ throughout OTHER: Irregularly irregular rhythm, S1-S2 variable intensity, pansystolic murmur in mitral area GI: COMMON NORMALS: Normal to inspection, nondistended, normoactive bowel sounds present, Soft to palpation, non-tender, No hepatosplenomegaly present and no masses AUSCULTATION: Yes normoactive bowel sounds PALPATION: Yes Soft to palpation and Yes No hepatosplenomegaly present RECTAL EXAM: Yes deferred Extremity: COMMON NORMALS: no clubbing, cyanosis or edema and no pedal edema Neuro: COMMON NORMALS: patient oriented x3 Discharge Data Studies Completed and Pending Completed Studies During Hospitalization Category Date Time Status CT neck w con* [id number] Stat Cat Scan 11/25/21 19:39 Completed CTA chest [CT angio chest PE protcl [id number]] Stat Cat Scan 11/25/21 19:39 Completed XR chest 2V* [id number] Stat Exams 11/25/21 16:45 Completed Radiology Impressions Chest X-Ray 11/25/21 16:45 IMPRESSION: 1. Probable small pleural effusions. ADDENDUM: 11/25/21 1722 Bones/joints: Mild chronic T3 compression fracture. Chest CTA 11/25/21 19:39 IMPRESSION: 1. No evidence for pulmonary embolus. 2. Dependent ground-glass opacities in the right upper and middle lobes could represent pneumonia or atelectasis. 3. Medium bilateral pleural effusions with mild atelectasis. Neck CT 11/25/21 19:39 IMPRESSION: 1. Large bilateral pleural effusions somewhat visualized. 2. Bilateral upper lobe patchy ground-glass airspace infiltrates suspected. 3. C5/6/7 anterior cervical discectomy and fusion changes without surrounding inflammation or acute appearing abnormality. Findings, however, are in close proximity to the posterior esophagus, a barium swallow could further evaluate this area to assess for external compression on the esophagus secondary to this surgical hardware. 4. Scattered prominent lymph nodes in the mediastinum measuring up to 16 mm, nonspecific. Laboratory Results WBC 15.0 10^3/uL (4.0-10.0) H 11/29/21 04:33 RBC 3.45 10^6/uL (4.1-5.3) L 11/29/21 04:33 Hgb 10.0 g/dL (11.7-16.6) L 11/29/21 04:33 Hct 30.6 % (42.0-52.0) L 11/29/21 04:33 MCV 88.7 fl (80-94) 11/29/21 04:33 MCH 29.0 pg (28.0-34.0) 11/29/21 04:33 MCHC 32.7 g/dL (30.0-36.0) 11/29/21 04:33 RDW 15.9 % (12.1-15.1) H 11/29/21 04:33 Plt Count 270 10^3/cmm (130-400) 11/29/21 04:33 MPV 10.6 fL (7.4-10.4) H 11/29/21 04:33 Neut % (Auto) 82.2 % 11/29/21 04:33 Lymph % (Auto) 8.1 % 11/29/21 04:33 [place] % (Auto) 9.0 % 11/29/21 04:33 Eos % (Auto) 0.0 % 11/29/21 04:33 Baso % (Auto) 0.1 % 11/29/21 04:33 Neut # (Auto) 12.30 10^3/uL (1.8-7.7) H 11/29/21 04:33 Lymph # (Auto) 1.2 10^3/uL (0.8-4.8) 11/29/21 04:33 [place] # (Auto) 1.4 10^3/uL (0.2-0.9) H 11/29/21 04:33 Eos # (Auto) 0.0 10^3/uL (0.0-0.8) 11/29/21 04:33 Baso # (Auto) 0.0 10^3/uL (0.0-0.1) 11/29/21 04:33 Nucleated RBC % (auto) 0 % 11/29/21 04:33 Nucleated RBCs # 0.0 /100WBC 11/29/21 04:33 ESR 63 mm/hr (0-10) H 11/28/21 04:40 D-Dimer 3.50 ug/mIFEU (0-0.59) H 11/25/21 18:30 Sodium 135 mmol/L (136-145) L 11/29/21 04:33 Potassium 3.8 mmol/L (3.5-5.1) 11/29/21 04:33 Chloride 99 mmol/L (98-107) 11/29/21 04:33 Carbon Dioxide 22 mmol/L (22-29) 11/29/21 04:33 Anion Gap 17.8 (5-19) 11/29/21 04:33 BUN 32 mg/dL (8-23) H 11/29/21 04:33 Creatinine 1.6 mg/dL (0.7-1.2) H 11/29/21 04:33 GFR Calculation Not Reportable 11/29/21 04:33 Glucose 114 mg/dL (65-115) 11/29/21 04:33 Calculated Osmolality 288 mOsm/kg (285-295) 11/29/21 04:33 Calcium 8.7 mg/dL (8.5-10.5) 11/29/21 04:33 Phosphorus 2.5 mg/dL (2.5-4.5) 11/28/21 04:40 Magnesium 2.1 mg/dL (1.7-2.3) 11/28/21 04:40 Total Bilirubin 1.0 mg/dL (0.15-1.2) 11/29/21 04:33 AST 52 U/L (0-40) H 11/29/21 04:33 ALT 49 U/L (0-41) H 11/29/21 04:33 Alkaline Phosphatase 59 U/L (40-130) 11/29/21 04:33 Troponin T Baseline 25 ng/L (0-15) H 11/25/21 18:30 Troponin T 120 Minute 27.65 ng/L (0-15) H 11/25/21 19:51 Delta Troponin T 2.65 ABS# (0-10) 11/25/21 19:51 Troponin T Hi Sens 6Hr 29.26 ng/L (0-15) H 11/26/21 00:55 Troponin T Hi Sens 6Hr Delta 4.26 ng/L (0-12) 11/26/21 00:55 C-Reactive Protein 120.9 mg/L (0.0-4.9) H 11/27/21 04:28 NT-Pro-B Natriuret Pep 16674 pg/mL (0-450) H 11/25/21 20:40 Total Protein 6.9 g/dL (6.6-8.7) 11/29/21 04:33 Albumin 3.0 g/dL (3.5-5.2) L 11/29/21 04:33 Globulin 3.9 g/dL (1.3-4.6) 11/29/21 04:33 Procalcitonin 0.07 ng/mL (0-0.5) 11/25/21 20:40 SARS-CoV-2 Ag (Rapid) Negative (Negative) 11/25/21 18:46 Vitals Last Vital Signs Temp 97.9 F 11/29/21 13:38 Pulse 95 11/29/21 13:38 Resp 16 11/29/21 13:38 BP 110/74 11/29/21 13:38 Pulse Ox 96 11/29/21 13:38 O2 Del Method 11/29/21 11:49 O2 Flow Rate 2 11/29/21 09:40 Discharge Plan Discharge Patient Disposition: Home Health Service Condition: Stable Prescriptions: New benzonatate 100 mg Capsule 200 mg PO TID PRN (Reason: Cough) Qty: 30 0RF Continued pantoprazole 40 mg tablet,delayed release (DR/EC) 40 mg PO BID saw palmetto 450 mg capsule 450 mg PO BID Rx Instructions: give with food (meal/snack) Eliquis 5 mg tablet 2.5 mg PO BID ranolazine 500 mg tablet extended release 12 hr 500 mg PO BID Qty: 180 3RF metoprolol tartrate 50 mg tablet 50 mg PO BID Qty: 180 3RF albuterol sulfate [Ventolin HFA] 90 mcg/actuation HFA aerosol inhaler 1 inh inhalation QID PRN (Reason: shortness of breath or wheezing) Qty: 8.5 3RF multivitamin Tablet 1 tab PO DAILY atorvastatin 40 mg tablet 40 mg PO BEDTIME magnesium 250 mg Tablet 250 mg PO DAILY nitroglycerin 0.4 mg tablet, sublingual 0.4 mg sublingual Q5M PRN (Reason: chest pains) Rx Instructions: max 3 tabs per episode gabapentin 100 mg Capsule 100 mg PO BEDTIME polyethylene glycol 3350 [Miralax] 17 gram Powder In Packet 17 g PO QAM vitamin B complex Tablet 1 tab PO DAILY fluticasone propionate 50 mcg/actuation [place],Suspension 2 spray INTRANASAL DAILY PRN (Reason: Allergy Symptoms) isosorbide mononitrate 60 mg tablet extended release 24 hr 60 mg PO DAILY Qty: 30 0RF Artificial Tears (cmc) 1 % Drops 1 drp ophthalmic (eye) BID Rx Instructions: each eye clopidogrel 75 mg tablet 75 mg PO QAM Discontinued aspirin [Adult Aspirin Regimen] 81 mg tablet,delayed release (DR/EC) 81 mg PO DAILY Discharge Orders: Discharge Order (Routine); Ordered 11/29/21 Ordered By: Rakesh Rivas Other Ambulatory Orders: DME: [place] (Order) Location: None Selected Ordered By: Rakesh Rivas Referrals: [facility] [Outside] [facility] [place] [Outside] Garcia Chaparro M.D [Physician] - 12/27/21 9:45 am Nikita Mosher MD [Primary Care Provider] - 12/06/21 11:00 am Patient Instructions: Atrial Fibrillation, Benzonatate (By mouth), Viral Pneumonia (ED), Opioid Safety, Pneumonia Stoplight Discharge Attestations Time Spent in Discharge Care*: less than 30 min Status at Discharge: Cognitive status at discharge: mildly impaired cognition , Behavioral status at discharge: cooperative , Quality Metrics Clinical Quality Measures [ No reported AMI, CVA or VTE this stay] Coding Level of Care Code Acute Chg FW DC note Exam Detailed Diagnoses Pleural effusion, bilateral J90 CAD (coronary artery disease) I25.10 Atrial fibrillation with RVR I48.91 Dyslipidemia E78.5
== END 2021-11-29 13:41 | disposition home health service (06) | DRG 309 ==
LOC: ER 21:12 → MEDSURG 22:05
PROVIDERS: Internal Medicine; Physician Assistant; Admitting Provider Internal Medicine; Emergency Provider Emergency Medicine; PCP Family Medicine; Visit Provider Internal Medicine
DX: I48.91 Unspecified atrial fibrillation (principal); J81.1 Chronic pulmonary edema; E86.0 Dehydration; I25.10 Atherosclerotic heart disease of native coronary artery without angina pectoris; I12.9 Hypertensive chronic kidney disease with stage 1 through stage 4 chronic kidney disease, or unspecified chronic kidney disease; N18.9 Chronic kidney disease, unspecified; Z86.16 Personal history of COVID-19; E78.5 Hyperlipidemia, unspecified; K21.9 Gastro-esophageal reflux disease without esophagitis; Z85.828 Personal history of other malignant neoplasm of skin; I25.5 Ischemic cardiomyopathy; I25.2 Old myocardial infarction; G62.9 Polyneuropathy, unspecified; M32.13 Lung involvement in systemic lupus erythematosus; Z86.73 Personal history of transient ischemic attack (TIA), and cerebral infarction without residual deficits; Z87.891 Personal history of nicotine dependence; I34.0 Nonrheumatic mitral (valve) insufficiency; Z66 Do not resuscitate; Z87.01 Personal history of pneumonia (recurrent); G47.33 Obstructive sleep apnea (adult) (pediatric); Z99.89 Dependence on other enabling machines and devices; Z79.01 Long term (current) use of anticoagulants; Z79.51 Long term (current) use of inhaled steroids; Z79.02 Long term (current) use of antithrombotics/antiplatelets
CPT/HCPCS: 36415; 70491; 71046; 71275; 80048; 80053; 83735; 83880; 84100; 84145; 84484; 85025; 85378; 85651; 86140; 86403; 87040; 87426; 87641; 92523; 92526; 92610; 93005; 94640; 94660; 94664; 94760; 96365; 99285; G0378; J0696; J1940; J1956; J7030; J7626; J8540; Q0144; Q9967

== ENCOUNTER → 2021-12-06 11:46 | Outpatient (BNVA) | payer MEDICARE, OTHER, SELFPAY | PROVIDERS: PCP Family Medicine; Visit Provider Family Medicine | DX: R53.1 Weakness (principal); R26.2 Difficulty in walking, not elsewhere classified; I25.10 Atherosclerotic heart disease of native coronary artery without angina pectoris; I48.91 Unspecified atrial fibrillation; J40 Bronchitis, not specified as acute or chronic | CPT/HCPCS: 80053; 83880; 85025; 86140 ==

== ENCOUNTER 2021-12-07 17:31 | Inpatient (IN) | payer MEDICARE, OTHER, SELFPAY ==
[2021-12-07] VITALS (7 sets, daily range): BP systolic 82–126; BP diastolic 45–88; PULSE 55–96; RESP 14–28; TEMP 36.2; O2SAT 89–97; BMI 23.5; BMI 22.6
--- NOTE | 2021-12-07 17:33 | XRR_ITS ---
PROCEDURE INFORMATION: Exam: XR Chest Exam date and time: 12/07/2021 5:46 PM Age: 81 years old Clinical indication: Shortness of breath; Additional info: Dyspnea/cough TECHNIQUE: Imaging protocol: Radiologic exam of the chest. Views: 1 view. COMPARISON: CR XR chest 2V* [id number] 11/25/2021 4:59 PM FINDINGS: Lungs: There is redistribution and indistinctness of the pulmonary vasculature, in association with haziness of the lungs and small bilateral pleural effusions, which in the setting of cardiomegaly is consistent with pulmonary edema. Pneumonia should be excluded clinically. No pneumothorax. Pleural spaces: See Lungs finding. Heart/Mediastinum: Stable cardiomediastinal silhouette. Bones/joints: Degenerative changes of the spine seen. XR/XR chest 1V portable [id number] IMPRESSION: Imaging findings of pulmonary edema with small bilateral pleural effusions. Pneumonia should be excluded clinically.
--- NOTE | 2021-12-07 18:03 | ED_ITS ---
Documented by User: Shawn Santos DO 12/10/21 07:25 HPI - Weakness General: Chief complaint: Weakness Stated complaint: weakness / lethargy Time Seen by Provider: 12/07/21 17:33 Source: patient Mode of arrival: EMS Limitations: no limitations History of Present Illness: 81-year-old male comes in via EMS complaining of generalized weakness. Began over the last several days he was hospitalized earlier this month. He has been coughing and short of breath is not normally on oxygen, now requiring 2 L. Does have a history of coronary artery disease and was recently stented within the last year he is taking his clopidogrel regularly. MD Complaint: generalized weakness Onset (ago): week(s) Duration: constant Location: generalized Severity: moderate Relieving factors: none Exacerbating factors: none Associated symptoms: Reports decreased appetite; Denies chest pain, chills, confusion, melena, diaphoresis, dysuria, easy bruising, fever(s), headache(s), myalgias, nausea, rash, short of breath, syncope or vomiting Review of Systems Const: Reports: fatigue and malaise; Denies: fever(s), chills or diaphoresis ENMT: Denies: throat pain, ear or mastoid pain, nasal discharge or nasal congestion Card: Denies: chest pain, palpitations, irregular heart rhythm or syncope Resp: Reports: dyspnea; Denies: productive cough or non-productive cough GI: Denies: abdominal pain, nausea, vomiting or melena : Denies: flank pain, difficulty urinating, dysuria, urinary frequency or urinary urgency Skin/Breast: Denies: rash or pruritus Neuro: Denies: headache(s) or confusion Ever/Lymph: Denies: easy bruising PFSH ED PFSH: Medical History Acute viral syndrome Anticoagulation adequate with anticoagulant therapy Atherosclerotic heart disease of [place] coronary artery with unstable angina pectoris Last echocardiogram EF 50%, mild mitral and atrial regurgitation February 2021 Atrial fibrillation Atrial fibrillation with RVR CAD (coronary artery disease) Cervical stenosis of spinal canal Cervical stenosis of spinal canal CKD (chronic kidney disease) COVID-19 resolved, Mar 2020 Dyslipidemia Essential hypertension Generalized weakness GERD (gastroesophageal reflux disease) Ground glass opacity present on imaging of lung History of nonmelanoma skin cancer Hyperlipidemia Inflammatory arthritis Ischemic cardiomyopathy NSIP (nonspecific interstitial pneumonia) NSTEMI (non-ST elevated myocardial infarction) Peripheral neuropathy Pleural effusion, bilateral Pneumonia SLE (systemic lupus erythematosus related syndrome) Sleep apnea TIA (transient ischemic attack) Surgical History History of coronary angiogram History of neck surgery History of shoulder surgery History of surgery on wrist Family History Other CAD (coronary artery disease) Diabetes Hypertension Denies family history of Rheumatoid arthritis Lupus Lung disease Cancer Stroke Social History Smoking and tobacco status: former smoker Quit status (tobacco): has quit using tobacco Year quit tobacco: 1959 Former quit date comment: Hx of 1 PPD x 10 Years Second hand smoke exposure: No Smoking risk assessment/counseling performed?: Yes Alcohol intake: never Counseling given: No Counseling given: No Lives independently: Yes Household members: spouse Marital status: service: Yes Current occupational status: retired Pets and animals: No History of recent travel: No Current gender identity: Male Physical Exam Const: GENERAL APPEARANCE: cooperative and comfortable ORIENTATION/CONSCIOUSNESS: Yes awake, Yes oriented to person, Yes oriented to place and Yes oriented to time HENMT: COMMON NORMALS: normocephalic, atraumatic and hearing grossly normal bilaterally HEAD & SCALP: normocephalic and atraumatic Lymph: LYMPHATIC: no lymphadenopathy noted and no lymphedema noted Resp: COMMON NORMALS: normal respiratory effort, No retractions and No use of accessory muscles AUSCULTATION: rhonchi and wheezes Cardio: COMMON NORMALS: regular rate, regular rhythm and No murmurs present (Cardio) RATE: regular rate RHYTHM: regular rhythm GI: COMMON NORMALS: Soft to palpation and No hepatosplenomegaly present AUSCULTATION: Yes normoactive bowel sounds PALPATION: Yes Soft to palpation, No Tenderness to palpation present (GI), No Guarding due to palpation present (GI) and Yes No hepatosplenomegaly present Extremity: COMMON NORMALS: normal to inspection, capillary refill normal, no clubbing, cyanosis or edema, no calf tenderness and no pedal edema Neuro: SENSORIUM/ORIENTATION: Yes oriented to person, Yes oriented to place and Yes oriented to time Skin: COMMON NORMALS: no rashes or lesions noted GENERAL SKIN EXAM: no rashes or lesions noted Course Vital Signs: Vital signs: Vital Signs Temperature 97.5 F L 12/10/21 04:00 Pulse Rate 64 12/10/21 04:00 Respiratory Rate 16 12/10/21 04:00 Blood Pressure 123/66 12/10/21 04:00 Pulse Oximetry 99 12/10/21 04:00 Oxygen Delivery Me thod 12/10/21 04:00 Oxygen Flow Rate 2 12/10/21 04:00 MDM - Weakness Medical Decision Making Care signed out to Dr. Liu at change of shift. See final notes for diagnosis and disposition. Initial chest x-ray patient has pneumonia he also has what looks like a right hilar mass was not present on the previous CTA done earlier this month. Other labs are pending. Initial cefepime blood cultures and sputum cultures ordered care turned over to Dr. Liu at change of shift see his note for final diagnosis and disposition Patient care assumed from Dr. Santos. Patient likely had pneumonia with some acute kidney injury. Patient is given cefepime in the ER. Patient is given gentle rehydration. Patient was stable and admitted to the floor. Lab Data : 12/10/21 03:41 12/10/21 03:41 Radiology Impressions Chest X-Ray 12/07/21 17:33 IMPRESSION: Imaging findings of pulmonary edema with small bilateral pleural effusions. Pneumonia should be excluded clinically. Abdomen Ultrasound 12/07/21 20:29 IMPRESSION: 1. Gallbladder sludge with gallbladder wall thickening up to 8 mm, findings are concerning for cholecystitis in the appropriate clinical setting. A nuclear medicine HIDA scan could further evaluate this as clinically indicated. 2. 4 cm infrarenal abdominal aortic aneurysm without rupture. 3. Small amount of ascites Kennedy's pouch. Chest CT 12/08/21 10:44 IMPRESSION: 1. Small bilateral pleural effusions with compressive atelectasis in the lung bases similar to November 25, 2021. 2. Small amount of hazy groundglass infiltrate in RIGHT middle lobe and RIGHT upper lobe along the fissure also similar to previous. 3. Small pericardial effusion. 4. Reactive mediastinal lymph nodes. 5. Coronary calcification. 6. No other significant changes compared to previous. Hepatobiliary Scan Nuclear Medicine 12/09/21 07:00 IMPRESSION: 1. No significant gallbladder emptying at 71 minutes. Findings compatible with gallbladder dysfunction and suspicious for chronic cholecystitis. 2. No evidence of acute cholecystitis. Laboratory Results WBC 16.8 10^3/uL (4.0-10.0) H 12/07/21 18:10 RBC 3.50 10^6/uL (4.1-5.3) L 12/07/21 18:10 Hgb 10.4 g/dL (11.7-16.6) L 12/07/21 18:10 Hct 33.5 % (42.0-52.0) L 12/07/21 18:10 MCV 95.7 fl (80-94) H 12/07/21 18:10 MCH 29.7 pg (28.0-34.0) 12/07/21 18:10 MCHC 31.0 g/dL (30.0-36.0) 12/07/21 18:10 RDW 17.5 % (12.1-15.1) H 12/07/21 18:10 Plt Count 227 10^3/cmm (130-400) 12/07/21 18:10 MPV 11.9 fL (7.4-10.4) H 12/07/21 18:10 Neut % (Auto) 86.9 % 12/07/21 18:10 Lymph % (Auto) 6.6 % 12/07/21 18:10 [place] % (Auto) 5.4 % 12/07/21 18:10 Eos % (Auto) 0.1 % 12/07/21 18:10 Baso % (Auto) 0.1 % 12/07/21 18:10 Neut # (Auto) 14.61 10^3/uL (1.8-7.7) H 12/07/21 18:10 Lymph # (Auto) 1.1 10^3/uL (0.8-4.8) 12/07/21 18:10 [place] # (Auto) 0.9 10^3/uL (0.2-0.9) 12/07/21 18:10 Eos # (Auto) 0.0 10^3/uL (0.0-0.8) 12/07/21 18:10 Baso # (Auto) 0.0 10^3/uL (0.0-0.1) 12/07/21 18:10 Nucleated RBC % (auto) 0.2 % 12/07/21 18:10 Nucleated RBCs # 0.0 /100WBC 12/07/21 18:10 Sodium 133 mmol/L (136-145) L 12/07/21 19:08 Potassium 5.1 mmol/L (3.5-5.1) 12/07/21 19:08 Chloride 96 mmol/L (98-107) L 12/07/21 19:08 Carbon Dioxide 21 mmol/L (22-29) L 12/07/21 19:08 Anion Gap 21.1 (5-19) H 12/07/21 19:08 BUN 63 mg/dL (8-23) H 12/07/21 19:08 Creatinine 3.2 mg/dL (0.7-1.2) H 12/07/21 19:08 GFR Calculation Not Reportable 12/07/21 19:08 Glucose 103 mg/dL (65-115) 12/07/21 19:08 Calculated Osmolality 294 mOsm/kg (285-295) 12/07/21 19:08 Lactic Acid 2.9 mmol/L (0.5-2.2) H 12/07/21 18:10 Calcium 8.6 mg/dL (8.5-10.5) 12/07/21 19:08 Total Bilirubin 2.0 mg/dL (0.15-1.2) H 12/07/21 19:08 AST 1154 U/L (0-40) H 12/07/21 19:08 ALT 1422 U/L (0-41) H 12/07/21 19:08 Alkaline Phosphatase 101 U/L (40-130) 12/07/21 19:08 Troponin T Baseline 68 ng/L (0-15) H 12/07/21 19:08 C-Reactive Protein 96.5 mg/L (0.0-4.9) H 12/07/21 19:08 NT-Pro-B Natriuret Pep 55263 pg/mL (0-450) H 12/07/21 19:08 Total Protein 7.3 g/dL (6.6-8.7) 12/07/21 19:08 Albumin 3.3 g/dL (3.5-5.2) L 12/07/21 19:08 Globulin 4.0 g/dL (1.3-4.6) 12/07/21 19:08 Procalcitonin 0.35 ng/mL (0-0.5) 12/07/21 19:08 Discharge Plan Discharge Patient Disposition: Admitted As Inpatient Admit Provider: Hermann Azar Clinical Impression: Pneumonia, Acute on chronic renal insufficiency Condition: Stable Sign Out Sign Out Data: Patient Sign Out occurred on 12/07/21 at 18:48. Patient's care was discussed, and care was transferred from to Jeromy Liu DO. Coding Level of Care Code ED Rn Visiting for Chg Fwd Exam Comprehensive Documented by User: Jeromy Liu DO 12/07/21 19:52 HPI - Weakness General: Chief complaint: Weakness Stated complaint: weakness / lethargy Time Seen by Provider: 12/07/21 17:33 PFSH ED PFSH: Medical History Acute viral syndrome Anticoagulation adequate with anticoagulant therapy Atherosclerotic heart disease of [place] coronary artery with unstable angina pectoris Last echocardiogram EF 50%, mild mitral and atrial regurgitation February 2021 Atrial fibrillation Atrial fibrillation with RVR CAD (coronary artery disease) Cervical stenosis of spinal canal Cervical stenosis of spinal canal CKD (chronic kidney disease) COVID-19 resolved, Mar 2020 Dyslipidemia Essential hypertension Generalized weakness GERD (gastroesophageal reflux disease) Ground glass opacity present on imaging of lung History of nonmelanoma skin cancer Hyperlipidemia Inflammatory arthritis Ischemic cardiomyopathy NSIP (nonspecific interstitial pneumonia) NSTEMI (non-ST elevated myocardial infarction) Peripheral neuropathy Pleural effusion, bilateral Pneumonia SLE (systemic lupus erythematosus related syndrome) Sleep apnea TIA (transient ischemic attack) Surgical History History of coronary angiogram History of neck surgery History of shoulder surgery History of surgery on wrist Family History Other CAD (coronary artery disease) Diabetes Hypertension Denies family history of Rheumatoid arthritis Lupus Lung disease Cancer Stroke Social History Smoking and tobacco status: former smoker Quit status (tobacco): has quit using tobacco Year quit tobacco: 1959 Former quit date comment: Hx of 1 PPD x 10 Years Second hand smoke exposure: No Smoking risk assessment/counseling performed?: Yes Alcohol intake: never Counseling given: No Counseling given: No Lives independently: Yes Household members: spouse Marital status: service: Yes Current occupational status: retired Pets and animals: No History of recent travel: No Current gender identity: Male Course Vital Signs: Vital signs: Vital Signs Temperature 97.5 F L 12/10/21 04:00 Pulse Rate 64 12/10/21 04:00 Respiratory Rate 16 12/10/21 04:00 Blood Pressure 123/66 12/10/21 04:00 Pulse Oximetry 99 12/10/21 04:00 Oxygen Delivery Me thod 12/10/21 04:00 Oxygen Flow Rate 2 12/10/21 04:00 MDM - Weakness Medical Decision Making Initial chest x-ray patient has pneumonia he also has what looks like a right hilar mass was not present on the previous CTA done earlier this month. Other labs are pending. Initial cefepime blood cultures and sputum cultures ordered care turned over to Dr. Liu at change of shift see his note for final diagnosis and disposition Patient care assumed from Dr. Santos. Patient likely had pneumonia with some acute kidney injury. Patient is given cefepime in the ER. Patient is given gentle rehydration. Patient was stable and admitted to the floor. Lab Data : 12/10/21 03:41 12/10/21 03:41 Radiology Impressions Chest X-Ray 12/07/21 17:33 IMPRESSION: Imaging findings of pulmonary edema with small bilateral pleural effusions. Pneumonia should be excluded clinically. Abdomen Ultrasound 12/07/21 20:29 IMPRESSION: 1. Gallbladder sludge with gallbladder wall thickening up to 8 mm, findings are concerning for cholecystitis in the appropriate clinical setting. A nuclear medicine HIDA scan could further evaluate this as clinically indicated. 2. 4 cm infrarenal abdominal aortic aneurysm without rupture. 3. Small amount of ascites Kennedy's pouch. Chest CT 12/08/21 10:44 IMPRESSION: 1. Small bilateral pleural effusions with compressive atelectasis in the lung bases similar to November 25, 2021. 2. Small amount of hazy groundglass infiltrate in RIGHT middle lobe and RIGHT upper lobe along the fissure also similar to previous. 3. Small pericardial effusion. 4. Reactive mediastinal lymph nodes. 5. Coronary calcification. 6. No other significant changes compared to previous. Hepatobiliary Scan Nuclear Medicine 12/09/21 07:00 IMPRESSION: 1. No significant gallbladder emptying at 71 minutes. Findings compatible with gallbladder dysfunction and suspicious for chronic cholecystitis. 2. No evidence of acute cholecystitis. Laboratory Results WBC 16.8 10^3/uL (4.0-10.0) H 12/07/21 18:10 RBC 3.50 10^6/uL (4.1-5.3) L 12/07/21 18:10 Hgb 10.4 g/dL (11.7-16.6) L 12/07/21 18:10 Hct 33.5 % (42.0-52.0) L 12/07/21 18:10 MCV 95.7 fl (80-94) H 12/07/21 18:10 MCH 29.7 pg (28.0-34.0) 12/07/21 18:10 MCHC 31.0 g/dL (30.0-36.0) 12/07/21 18:10 RDW 17.5 % (12.1-15.1) H 12/07/21 18:10 Plt Count 227 10^3/cmm (130-400) 12/07/21 18:10 MPV 11.9 fL (7.4-10.4) H 12/07/21 18:10 Neut % (Auto) 86.9 % 12/07/21 18:10 Lymph % (Auto) 6.6 % 12/07/21 18:10 [place] % (Auto) 5.4 % 12/07/21 18:10 Eos % (Auto) 0.1 % 12/07/21 18:10 Baso % (Auto) 0.1 % 12/07/21 18:10 Neut # (Auto) 14.61 10^3/uL (1.8-7.7) H 12/07/21 18:10 Lymph # (Auto) 1.1 10^3/uL (0.8-4.8) 12/07/21 18:10 [place] # (Auto) 0.9 10^3/uL (0.2-0.9) 12/07/21 18:10 Eos # (Auto) 0.0 10^3/uL (0.0-0.8) 12/07/21 18:10 Baso # (Auto) 0.0 10^3/uL (0.0-0.1) 12/07/21 18:10 Nucleated RBC % (auto) 0.2 % 12/07/21 18:10 Nucleated RBCs # 0.0 /100WBC 12/07/21 18:10 Sodium 133 mmol/L (136-145) L 12/07/21 19:08 Potassium 5.1 mmol/L (3.5-5.1) 12/07/21 19:08 Chloride 96 mmol/L (98-107) L 12/07/21 19:08 Carbon Dioxide 21 mmol/L (22-29) L 12/07/21 19:08 Anion Gap 21.1 (5-19) H 12/07/21 19:08 BUN 63 mg/dL (8-23) H 12/07/21 19:08 Creatinine 3.2 mg/dL (0.7-1.2) H 12/07/21 19:08 GFR Calculation Not Reportable 12/07/21 19:08 Glucose 103 mg/dL (65-115) 12/07/21 19:08 Calculated Osmolality 294 mOsm/kg (285-295) 12/07/21 19:08 Lactic Acid 2.9 mmol/L (0.5-2.2) H 12/07/21 18:10 Calcium 8.6 mg/dL (8.5-10.5) 12/07/21 19:08 Total Bilirubin 2.0 mg/dL (0.15-1.2) H 12/07/21 19:08 AST 1154 U/L (0-40) H 12/07/21 19:08 ALT 1422 U/L (0-41) H 12/07/21 19:08 Alkaline Phosphatase 101 U/L (40-130) 12/07/21 19:08 Troponin T Baseline 68 ng/L (0-15) H 12/07/21 19:08 C-Reactive Protein 96.5 mg/L (0.0-4.9) H 12/07/21 19:08 NT-Pro-B Natriuret Pep 01044 pg/mL (0-450) H 12/07/21 19:08 Total Protein 7.3 g/dL (6.6-8.7) 12/07/21 19:08 Albumin 3.3 g/dL (3.5-5.2) L 12/07/21 19:08 Globulin 4.0 g/dL (1.3-4.6) 12/07/21 19:08 Procalcitonin 0.35 ng/mL (0-0.5) 12/07/21 19:08 Discharge Plan Discharge Patient Disposition: Admitted As Inpatient Admit Provider: Hermann Azar Clinical Impression: Pneumonia, Acute on chronic renal insufficiency Condition: Stable Sign Out Sign Out Data: Patient Sign Out occurred on 12/07/21 at 18:48. Patient's care was discussed, and care was transferred from to EverestJeromy . Coding Level of Care Code ED Rn Visiting for Chg Fwd Exam Comprehensive
[2021-12-07 18:52] LABS: Basophils % 0.1 %; Eosinophils % 0.1 %; Hematocrit 33.5 % (42.0-52.0); Hemoglobin 10.4 g/dL (11.7-16.6); Lymphocytes # 1.1 10^3/uL (0.8-4.8); Lymphocytes % 6.6 %; Mean Corpuscular Hemoglobin 29.7 pg (28.0-34.0); Mean Corpuscular Volume 95.7 fl (80-94); Mean Platelet Volume 11.9 fL (7.4-10.4); Monocytes # 0.9 10^3/uL (0.2-0.9); Monocytes % 5.4 %; Neutrophils # 14.61 10^3/uL (1.8-7.7); Neutrophils % 86.9 %; Nucleated Red Blood Cells % 0.2 %; Platelet Count 227 10^3/cmm (130-400); Red Cell Distribution Width 17.5 % (12.1-15.1); White Blood Count 16.8 10^3/uL (4.0-10.0)
[2021-12-07] MEDS: cefepime 2,000 MG in sodium chloride 0.9% (plus) 50 ML 100 MG IV (19:08)
[2021-12-07] MEDS: sodium chloride 0.9% 500 ML IV (19:09)
[2021-12-07 19:39] LABS: Albumin Level 3.3 g/dL (3.5-5.2); Alkaline Phosphatase 101 U/L (40-130); Anion Gap 21.1 (5-19); Blood Urea Nitrogen 63 mg/dL (8-23); Calcium 8.6 mg/dL (8.5-10.5); Carbon Dioxide 21 mmol/L (22-29); Chloride 96 mmol/L (98-107); Glucose 103 mg/dL (65-115); Osmolality Calculated 294 mOsm/kg (285-295); Potassium 5.1 mmol/L (3.5-5.1); Sodium 133 mmol/L (136-145); Total Protein 7.3 g/dL (6.6-8.7)
[2021-12-07 19:42] LABS: Procalcitonin 0.35 ng/mL (0-0.5)
[2021-12-07 19:46] LABS: Alanine Aminotransferase 1422 U/L (0-41)
[2021-12-07 19:48] LABS: Aspartate Amino Transferase 1154 U/L (0-40)
[2021-12-07] MEDS: sodium chloride 0.9% 1,000 ML 75 ML IV (20:24)
--- NOTE | 2021-12-07 20:29 | USR_ITS ---
PROCEDURE INFORMATION: Exam: US Abdomen, Limited; Right Upper Quadrant Exam date and time: 12/07/2021 9:11 PM Age: 81 years old Clinical indication: Other: Elevated tbili = 2.0, elevated ast = 1154, elevated alt = 1422, elevated bun = 21.1, elevated creat = 3.2, low albumin, normal alkphos; Patient HX: Patient is lethargic and panting. ; Additional info: Gallbladder and liver for shock liver TECHNIQUE: Imaging protocol: Real time ultrasound of the abdomen with image documentation. Limited exam focused on the right upper quadrant. COMPARISON: CT chest abd pel w con* 03/19/2020 3:16 PM FINDINGS: Liver: Normal. No masses. Gallbladder: Gallbladder sludge with gallbladder wall thickening up to 8 mm, findings are concerning for cholecystitis in the appropriate clinical setting. Biliary ducts: Normal. No stones. No dilation. Pancreas: Visualized pancreas is unremarkable. Right kidney: Normal. No mass. No hydronephrosis. Aorta: 4 cm infrarenal abdominal aortic aneurysm without rupture. Intraperitoneal space: Small amount of ascites Kennedy's pouch. US/US abdomen limited [id number] IMPRESSION: 1. Gallbladder sludge with gallbladder wall thickening up to 8 mm, findings are concerning for cholecystitis in the appropriate clinical setting. A nuclear medicine HIDA scan could further evaluate this as clinically indicated. 2. 4 cm infrarenal abdominal aortic aneurysm without rupture. 3. Small amount of ascites Kennedy's pouch.
--- NOTE | 2021-12-07 20:31 | P.HP_ITS ---
Providers/Chief Complaint Primary Care Provider: Nikita Mosher MD Chief Complaint: weakness / lethargy History of Present Illness Isaac Blanco is a 81 year old male Review of Systems Const: Denies: fever(s), chills, fatigue or malaise Eyes: Denies: change in vision Card: Denies: chest pain Resp: Reports: dyspnea and non-productive cough GI: Denies: abdominal pain, nausea or vomiting : Denies: flank pain or dysuria Neuro: Denies: headache(s) Medications/Allergies Home Medications Medication Instructions Recorded Confirmed Last Taken Type saw palmetto 450 mg capsule 450 mg PO BID 08/21/19 12/06/21 11/07/21 History atorvastatin 40 mg tablet 40 mg PO BEDTIME 02/17/20 12/06/21 11/06/21 History magnesium 250 mg tablet 250 mg PO DAILY 02/17/20 12/06/21 11/07/21 History multivitamin 1 tab PO DAILY 02/17/20 12/06/21 11/07/21 History nitroglycerin 0.4 mg sublingual 0.4 mg sublingual Q5M PRN chest 02/17/20 12/06/21 06/17/21 History tablet pains pantoprazole 40 mg tablet,delayed 40 mg PO BID 09/27/20 12/06/21 11/07/21 History release gabapentin 100 mg capsule 100 mg PO BEDTIME 02/10/21 12/06/21 11/06/21 History polyethylene glycol 3350 17 gram 17 g PO QAM 02/27/21 12/06/21 11/07/21 History oral powder packet (Miralax) fluticasone propionate 50 2 spray intranasal DAILY PRN 03/04/21 12/06/21 03/15/21 History mcg/actuation nasal Allergy Symptoms spray,suspension vitamin B complex 1 tab PO DAILY 03/04/21 12/06/21 11/07/21 History ranolazine 500 mg tablet,extended 500 mg PO BID #180 tabs 03/28/21 12/06/21 11/07/21 Rx release,12 hr metoprolol tartrate 50 mg tablet 50 mg PO BID #180 tabs 04/29/21 12/06/21 11/07/21 Rx apixaban 5 mg tablet (Eliquis) 2.5 mg PO BID 05/03/21 12/06/21 11/07/21 History carboxymethylcellulose sodium 1 % 1 drp ophthalmic (eye) BID 06/17/21 12/06/21 11/07/21 History eye drops (Artificial Tears (carboxymethylcellulose)) clopidogrel 75 mg tablet 75 mg PO QAM 06/17/21 12/06/21 11/07/21 History albuterol sulfate 90 mcg/actuation 1 inh inhalation QID PRN shortness 11/04/21 12/06/21 Unknown Rx aerosol inhaler (Ventolin HFA) of breath or wheezing #8.5 grams isosorbide mononitrate 60 mg 60 mg PO DAILY #30 tabs 11/08/21 12/06/21 Unknown Rx tablet,extended release 24 hr benzonatate 100 mg capsule 200 mg PO TID PRN Cough #30 caps 11/29/21 12/06/21 Unknown Rx Allergies Allergy/AdvReac Type Severity Reaction Status Date / Time hydrocodone Allergy Severe Unknown Verified 11/07/21 19:17 codeine Allergy Unknown Unknown Verified 11/07/21 19:17 PFSH Acute PFSH: Medical History Acute viral syndrome Anticoagulation adequate with anticoagulant therapy Atherosclerotic heart disease of [place] coronary artery with unstable angina pectoris Last echocardiogram EF 50%, mild mitral and atrial regurgitation February 2021 Atrial fibrillation Atrial fibrillation with RVR CAD (coronary artery disease) Cervical stenosis of spinal canal Cervical stenosis of spinal canal CKD (chronic kidney disease) COVID-19 resolved, Mar 2020 Dyslipidemia Essential hypertension Generalized weakness GERD (gastroesophageal reflux disease) Ground glass opacity present on imaging of lung History of nonmelanoma skin cancer Hyperlipidemia Inflammatory arthritis Ischemic cardiomyopathy NSIP (nonspecific interstitial pneumonia) NSTEMI (non-ST elevated myocardial infarction) Peripheral neuropathy Pleural effusion, bilateral Pneumonia SLE (systemic lupus erythematosus related syndrome) Sleep apnea TIA (transient ischemic attack) Surgical History History of coronary angiogram History of neck surgery History of shoulder surgery History of surgery on wrist Family History Other CAD (coronary artery disease) Diabetes Hypertension Denies family history of Rheumatoid arthritis Lupus Lung disease Cancer Stroke Social History Smoking and tobacco status: former smoker Quit status (tobacco): has quit using tobacco Year quit tobacco: 1959 Former quit date comment: Hx of 1 PPD x 10 Years Second hand smoke exposure: No Smoking risk assessment/counseling performed?: Yes Alcohol intake: never Counseling given: No Counseling given: No Lives independently: Yes Household members: spouse Marital status: service: Yes Current occupational status: retired Pets and animals: No History of recent travel: No Current gender identity: Male Vitals/I&O/Wt Last Vital Signs Temp 97.2 F L 12/07/21 17:33 Pulse 96 12/07/21 20:00 Resp 17 12/07/21 20:00 BP 126/88 12/07/21 20:00 Pulse Ox 97 12/07/21 20:00 O2 Del Method 12/07/21 19:57 O2 Flow Rate 2 12/07/21 19:57 12/07/21 12/07/21 12/07/21 06:59 14:59 22:59 Intake Total 550 / 550 Balance 550 / 550 Weight last 48 hrs Weight 68.039 kg Physical Exam Const: COMMON NORMALS: no acute distress NUTRITIONAL APPEARANCE: cachectic and thin ORIENTATION/CONSCIOUSNESS: Yes awake, Yes oriented to person and Yes oriented to place; not oriented to time HENMT: COMMON NORMALS: normocephalic HEAD & SCALP: normocephalic Eye: COMMON NORMALS: Equal, round and reactive pupils present and EOMs intact bilaterally Neck/C-Spine: COMMON NORMALS: no JVD Resp: COMMON NORMALS: normal respiratory effort, No retractions, No use of accessory muscles and clear to auscultation bilaterally AUSCULTATION: clear to auscultation bilaterally Cardio: COMMON NORMALS: no JVD, regular rate, regular rhythm, S1 normal heart sound present and S2 normal heart sound present RATE: regular rate RHYTHM: regular rhythm HEART SOUNDS: S1 normal heart sound present and S2 normal heart sound present GI: COMMON NORMALS: Normal to inspection, nondistended, normoactive bowel sounds present, Soft to palpation, non-tender, No hepatosplenomegaly present, no masses and no bruits PALPATION: Yes Soft to palpation and Yes No hepatosplenomegaly present Extremity: COMMON NORMALS: no calf tenderness NARRATIVE EXTREMITY EXAM: 1+ pitting edema bilateral extremity Neuro: COMMON NORMALS: CN's II-XII intact bilaterally and moves all extremities Psych: COMMON NORMALS: mental status grossly normal Data : 12/07/21 18:10 12/07/21 19:08 Micro: Microbiology 12/07/21 19:08 Blood Culture - Preliminary Blood SPECIMEN COLLECTED 12/07/21 19:05 Blood Culture - Preliminary Blood SPECIMEN COLLECTED A&P Assessment and plan (1) Shock liver: Status: Acute (2) Acute renal failure: Status: Acute (3) Pneumonia: Status: Acute (4) CAD (coronary artery disease): Status: Acute (5) Sepsis: Status: Acute (6) Mitral valve regurgitation: Status: Acute (7) Acute heart failure: Status: Acute Plan Acute hypoxic respiratory failure -Likely secondary to pneumonia, sepsis -However review of chest x-ray shows bilateral pleural effusions, he does have worsening mitral valve regurg, severe, likely significant component related to pulmonary edema related to valvular heart disease -With shock liver, with acute renal failure related to sepsis and/or poor cardiac output from mitral valve regurg, with aortic regurg -During my examination, blood pressures are a bit soft, 90s over 60s, bradycardic, heart rate is in the 50s, alert oriented x3, but looked ill, getting breathing treatment Plan -We will monitor respiratory status closely -Obtain INR, BMP, CRP, troponin series, ABG -Sputum cultures, blood cultures MRSA nares PCR -Vancomycin, cefepime -Creatinine elevated, monitor potassium, monitor mag, will give 1 dose of Lasix -Place Pritchard catheter, monitor urine output -DuoNeb, budesonide -Patient is DNR/DNI -Eliquis for DVT prophylaxis Shock liver -Potentially related to sepsis, or poor cardiac output -Monitor LFTs closely, liver ultrasound Acute renal failure -Potentially to sepsis for poor cardiac output -Monitor creatinine closely Severe mitral valve regurg Cardiac echo October 2021 showed LV systolic function is borderline normal with EF of 50-55% ?Biatrial enlargement ?Moderate to severe eccenteric mitral regurgitation ?Moderate aortic regurgitation ?Mild tricuspid regurgitation ?Moderate pulmonary hypertension ?Mildly dilated ascending aorta ?Compared to prior echocardiogram from 02/2021, mitral ?regurgitation has progressed and is moderate to severe now. Atrial fibrillation, continue Eliquis, hold beta-blockers due to low blood pressures Bilateral pleural effusions, diuresis as above CAD continue statin, Plavix, eliquis Attestations Medical Necessity Statement*: Patient requires hospitalization, inpatient, greater than 2 midnights, for acute heart failure, fluid overload, sepsis,, deconditioning, acute renal failure, shock liver, sepsis Coding Level of Care Code Acute Expanding Machine Operator for g Fwd Diagnoses Shock liver K72.00 Acute renal failure N17.9 Pneumonia J18.9 CAD (coronary artery disease) I25.10 Sepsis A41.9 Mitral valve regurgitation I34.0 Acute heart failure I50.9
--- NOTE | 2021-12-07 20:55 | ECG_ITS ---
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 Measurements Intervals [place] Rate: 57 P: 82 GA: 215 QRS: 29 QRSD: 132 T: 184 QT: 505 QTc: 493 Interpretive Statements SINUS BRADYCARDIA WITH SINUS ARRHYTHMIA WITH FIRST DEGREE AV BLOCK INTRAVENTRICULAR CONDUCTION DELAY [130+ ms QRS DURATION] Compared to ECG 11/26/2021 02:07:56 First degree AV block now present Sinus rhythm no longer present Electronically Signed On 12-08-2021 8:21:58 CDT by Yessi Westbrook M.D. [id number]
[2021-12-07 21:36] LABS: C Reactive Protein 96.5 mg/L (0.0-4.9); NT Pro B Type Natriuretic Pept 16497 pg/mL (0-450)
[2021-12-07 21:45] LABS: Troponin(5th) Baseline 68 ng/L (0-15)
[2021-12-07 21:48] LABS: Lactic Sepsis W/Reflex 2.9 mmol/L (0.5-2.2)
[2021-12-07 22:15] LABS: Add Urine Microscopic? YES; Bilirubin Urine 1+ (Negative); Blood Urine Neg (Negative); Glucose Urine UA Norm (Normal); Ketones Urine Negative (Negative); Leukocyte Esterase Urine Trace (Negative); Nitrate Urine Negative (Negative); Protein Urine 1+ (Negative); Specific Gravity, Urine 1.025 (1.005-1.030); Urine Appearance Clear (CLEAR); Urine Color Brown (Yellow); Urobilinogen Urine 1 mg/dL (Negative); pH Urine 5 (5-7)
[2021-12-07 22:22] LABS: Amorphous Sediment Urine 2+ /hpf; Bacteria Urine TRACE /hpf; Fine Granular Casts Urine 0-4 /lpf; RBC Urine 0-4 /hpf (0-2); WBC Urine 0-4 /hpf (0-5)
[2021-12-07 22:23] LABS: Add Urine Culture? No; Renal Epithelial Cells Urine 0-4 /hpf
[2021-12-07 22:53] LABS: Reflex Lactate Order REFLEX LACTIC ORDERD
--- NOTE | 2021-12-07 22:59 | ECG_ITS ---
[facility] Test Date: 2021-12-07 Pat Name: Isaac Blanco Department: Room: 256 Gender: Male Quality Project Manager: : 1940 Requested By: Hermann Azar Order Number: [id number] Radha MD: Ce Huerta M.D. Measurements Intervals [place] Rate: 58 P: 86 WV: 220 QRS: 42 QRSD: 126 T: 196 QT: 527 QTc: 518 Interpretive Statements SINUS BRADYCARDIA WITH FIRST DEGREE AV BLOCK MODERATE INTRAVENTRICULAR CONDUCTION DELAY [110+ ms QRS DURATION] ST DEVIATION AND MODERATE T-WAVE ABNORMALITY, CONSIDER LATERAL ISCHEMIA [-0.1+ mV T-WAVE IN I/aVL/V5/V6] ST DEVIATION AND MODERATE T-WAVE ABNORMALITY, CONSIDER INFERIOR ISCHEMIA [-0.1+ mV T-WAVE IN II/aVF] Compared to ECG 12/07/2021 20:55:10 T-wave abnormality now present Possible ischemia now present Sinus arrhythmia no longer present Electronically Signed On 12-08-2021 20:46:41 CDT by Ce Huerta M.D. [id number]
--- NOTE | 2021-12-07 23:01 | PC.NURSE ---
ADMIT NOTE Pt received to floor from ER at 2235. Is oriented but appears quite weak. Soft spoken. says pt has been declining and has been getting weaker and has gotten to be unable to walk last few days. She says he slid to floor while she was getting him from chair today. Tells me she is no longer able to take care of him. Has bruising to left side, an abrasion with bruise to right side and blanchable redness to sacral/buttocks area. Pritchard in place on arrival to floor. Urine very dark. IV fluids at 75ml/hr rate. O2 in place at 2l per NC. Telemetry placed. SCD's to BLE. RN completing admission assessment. Bed alarm on per fall precautions
[2021-12-07] MEDS: midodrine 5 mg TABLET 10 MG PO (23:21)
[2021-12-07] MEDS: atorvastatin 40 mg Tablet PO (23:21)
[2021-12-07] MEDS: gabapentin 100 mg Capsule PO (23:21)
--- NOTE | 2021-12-07 23:33 | PC.PHAR ---
Pharmacokinetic dosing service Date: 12/07/21 Time: 2329 Objective: Patient: Isaac Blanco Floor: 256-1 Age: 81 yo Serum creatinine: 3.2 mg/dL Height: 67.0 Inches Weight (kg): 65.408 Diagnosis: Relevant medical/social history: Cultures and sensitivities: Other labs: Assessment: IBW (kg): 66.10 Dosing wt(kg): 65.408 Estimated Creatinine clearance (ml/min): 16.2 CRCL method: Cockcroft and Gault using ibw(default). Drug selected: Vancomycin Loading dose (mg): 0 Vd (liters): 58.9 (factor used: 0.9 L/kg) Kai (hr-1): 0.018 Half life (hrs): 38.51 Recommended dose: 1000 mg Interval: 48 hrs Infusion time (hrs): 1.5 Predicted peak (mcg/mL): 29.0 Predicted trough (mcg/mL): 12.56 Total body weight is being used for vancomycin dosing. Renal function is stable [ ] /unstable [ ] Recommendations: Give Vancomycin 1000 mg q 48 hrs with an expected Cpeak of 29.0 mcg/ml and an expected Ctrough of 12.56 mcg/ml Renal dosing of other antibiotics (review renal dosing of other medications and list guidelines here): Thank you for the consult, will continue to follow. Signature: Sandy Coy [facility]
[2021-12-08] VITALS (9 sets, daily range): BP systolic 91–108; BP diastolic 54–63; PULSE 58–63; RESP 17–18; TEMP 36.3–36.7; O2SAT 93–98
[2021-12-08 00:19] LABS: Troponin 5 2HR 64.15 ng/L (0-15)
[2021-12-08 00:20] LABS: Lactic Acid level (Lactate) 2.7 mmol/L (0.5-2.2); Troponin 5 2HR Delta -3.85 ABS# (0-10)
[2021-12-08] MEDS: vancomycin 1,000 MG in sodium chloride 0.9% 250 ML 250 MG IV (00:20)
--- NOTE | 2021-12-08 02:50 | ECG_ITS ---
[facility] Test Date: 2021-12-08 Pat Name: Isaac Blanco Department: Room: 256 Gender: Male Material Assistant: : 1940 Requested By: Hermann Azar Order Number: [id number] Radha MD: Ce Heurta M.D. Measurements Intervals [place] Rate: 59 P: 75 TX: 234 QRS: 7 QRSD: 134 T: 185 QT: 514 QTc: 510 Interpretive Statements SINUS BRADYCARDIA WITH FIRST DEGREE AV BLOCK INTRAVENTRICULAR CONDUCTION DELAY [130+ ms QRS DURATION] ST-T changes, may suggest anterolateral ischemia compared to ECG 12/07/2021 22:59:22, no significant changes Electronically Signed On 12-08-2021 20:48:23 CDT by Ce Huerta M.D. [id number]
[2021-12-08 03:19] LABS: Basophils % 0.1 %; Eosinophils % 0.1 %; Hematocrit 31.3 % (42.0-52.0); Hemoglobin 10.4 g/dL (11.7-16.6); Lymphocytes # 1.2 10^3/uL (0.8-4.8); Lymphocytes % 5.9 %; Mean Corpuscular HGB Conc 33.2 g/dL (30.0-36.0); Mean Corpuscular Hemoglobin 29.5 pg (28.0-34.0); Mean Corpuscular Volume 88.7 fl (80-94); Mean Platelet Volume 12.3 fL (7.4-10.4); Monocytes # 1.1 10^3/uL (0.2-0.9); Monocytes % 5.5 %; Neutrophils % 87.5 %; Nucleated Red Blood Cells % 0.1 %; Platelet Count 229 10^3/cmm (130-400); Red Blood Count 3.53 10^6/uL (4.1-5.3); Red Cell Distribution Width 17.5 % (12.1-15.1); White Blood Count 19.6 10^3/uL (4.0-10.0)
[2021-12-08 05:39] LABS: Anion Gap 20.2 (5-19); Blood Urea Nitrogen 68 mg/dL (8-23); Calcium 8.2 mg/dL (8.5-10.5); Carbon Dioxide 17 mmol/L (22-29); Chloride 101 mmol/L (98-107); Glucose 83 mg/dL (65-115); Magnesium 2.7 mg/dL (1.7-2.3); Osmolality Calculated 295 mOsm/kg (285-295); Phosphorus 4.7 mg/dL (2.5-4.5); Potassium 5.2 mmol/L (3.5-5.1); Sodium 133 mmol/L (136-145); Thyroid Stimulating Hormone 1.58 uIU/mL (0.27-4.20)
[2021-12-08] MEDS: cefepime 2,000 MG in sodium chloride 0.9% (plus) 50 ML 100 MG IV (06:05)
[2021-12-08] MEDS: clopidogrel 75 mg Tablet PO (06:05)
[2021-12-08] MEDS: midodrine 5 mg TABLET 10 MG PO (06:05)
[2021-12-08] MEDS: budesonide 0.5 mg/2 mL Neb INHALATION ×2 (09:09→19:24)
[2021-12-08] MEDS: apixaban 5 mg Tablet 2.5 MG PO (09:31)
[2021-12-08] MEDS: ranolazine (12HR) 500 mg Tablet PO (09:32)
[2021-12-08] MEDS: pantoprazole DR 40 mg Tablet PO ×2 (09:32→17:33)
--- NOTE | 2021-12-08 10:44 | CT_ITS ---
WS: [id number] CT CHEST TECHNIQUE: Noncontrast CT of the chest with coronal and sagittal reformatted images. CLINICAL INFORMATION: pna COMPARISON: November 25, 2021 DLP: 349.[address] scans at [facility] use at least one of these dose optimization techniques: automated e xposure control; mA and/or kV adjustment per patient size (includes targeted exams where dose is matc hed to clinical indication); or iterative reconstruction. FINDINGS: Small bilateral pleural effusions with compressive atelectasis lung bases. This is similar in appeara nce to November 25, 2021. Upper lobes are well aerated. Slight hazy atelectasis along the RIGHT midd le lobe and RIGHT upper lobe inferiorly. This is also similar to previous. Small pericardial effusion . Reactive mediastinal lymph nodes. Normal caliber thoracic aorta. Normal descending thoracic aorta. Adrenal glands are normal. Partially visualized renal cortical atrophy. Fatty atrophy of the pancreas . Splenic artery calcification. No axillary lymphadenopathy. Moderate thoracic kyphosis. Schmorl's nodes in the thoracic spine. CT/CT chest wo con [id number] IMPRESSION: 1. Small bilateral pleural effusions with compressive atelectasis in the lung bases similar to November 25, 2021. 2. Small amount of hazy groundglass infiltrate in RIGHT middle lobe and RIGHT upper lobe along the fissure also similar to previous. 3. Small pericardial effusion. 4. Reactive mediastinal lymph nodes. 5. Coronary calcification. 6. No other significant changes compared to previous.
--- NOTE | 2021-12-08 10:45 | P.PN_ITS ---
Subjective Subjective: Patient is oriented to herself Able to answer my question He was able to tell me his name, date of and the president's name Is currently on 4 L nasal cannula I will request CT chest Vitals/I&O/Wt Last Vital Signs Temp 97.5 F L 12/08/21 08:00 Pulse 59 L 12/08/21 09:06 Resp 17 12/08/21 09:06 BP 106/60 12/08/21 08:00 Pulse Ox 97 12/08/21 09:06 O2 Del Method 12/08/21 09:06 O2 Flow Rate 4 12/08/21 09:06 12/07/21 12/08/21 12/08/21 22:59 06:59 14:59 Intake Total 550 / 550 350 / 900 1050 / 1050 Output Total 300 / 300 Balance 550 / 550 50 / 600 1050 / 1050 Weight last 48 hrs Weight 65.408 kg Weight 68.039 kg Physical Exam Narrative: Patient is oriented to himself Able to move his extremities No signs of stroke Currently on 4 L nasal cannula Bilateral breath sounds with rhonchi Abdomen soft mild tender right upper quadrant Looks dehydrated Abdomen soft Urinary Catheter Management: Pritchard: Cath Placed During This Visit: yes Reason for Continuing Indwelling Catheter: Acute Urinary Retention or Obstruction Urinary Catheter Date of Insertion: 12/07/21 Urinary Catheter Time of Insertion: 22:00 Data : 12/08/21 01:37 12/08/21 04:16 Micro: Microbiology 12/07/21 19:08 Blood Culture - Preliminary Blood SPECIMEN COLLECTED 12/07/21 19:05 Blood Culture - Preliminary Blood SPECIMEN COLLECTED A&P Assessment and plan (1) Mitral valve regurgitation: Status: Acute (2) Sepsis: Status: Acute (3) Pneumonia: Status: Acute (4) Acute on chronic renal insufficiency: Status: Acute (5) Shock liver: Status: Acute (6) Sleep apnea: Status: Acute Qualifiers: Sleep apnea type: obstructive Qualified Code(s): G47.33 - Obstructive sleep apnea (adult) (pediatric) (7) Weakness: Status: Acute (8) Afib: Status: Acute Plan Severe sepsis Sepsis related to community-acquired pneumonia Continue IV antibiotics Will obtain hepatobiliary scan to rule out cholecystitis Multiorgan failure with severe sepsis abnormal transaminases, acute on chronic kidney disease Monitor closely for now if he requires vasopressors we will transfer to ICU I would not use midodrine for now considering history of chf Patient has history of preserved action fraction heart failure, acute exacerbation Worsening mitral valve vegetation murmur noted on previous echo Clinically does not look fluid overloaded Noticed high BNP I would not use IV diuretics because of low blood pressure Community-acquired pneumonia Has persistent groundglass opacities follows up with Dr. Dai He was recently discharged from the hospital after management of A. fib and negative I will request CT chest for persistent pneumonia A. fib without RVR [place] to be tere blocking agents Holding anticoagulating agent in case he requires gallbladder drainage Sleep apnea, uses CPAP at night Metabolic encephalopathy related to community-acquired pneumonia and sepsis Patient is oriented to himself DNR/DNI Low-fat diet Holding anticoagulating agent for now SCDs Patient seems to be very deconditioned Follows up with Dr. Dai Attestations Medical Necessity Statement*: Guarded prognosis Time Spent in Patient Care: 40 Coding Level of Care Code Acute Berry Picker Machine Operator for [facility] Fwd Diagnoses Mitral valve regurgitation I34.0 Sepsis A41.9 Pneumonia J18.9 Acute on chronic renal insufficiency N28.9; N18.9 Shock liver K72.00 Sleep apnea G47.33 Sleep apnea type: obstructive Weakness R53.1 Afib I48.91
[2021-12-08 11:32] LABS: Lactate (Lactic Acid level) 1.9 mmol/L (0.5-2.2)
--- NOTE | 2021-12-08 12:21 | PC.CHAP ---
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 visit [] Patient/Family/Request visit [] Outpatient visit [] Follow-up visit [] Physician referral [] Code/Alert [x] Routine visit [] Staff referral [] Actively dying [] Patient sleeping [] Family support [] [] Out of room [] Palliative care [] [x] Receiving care in room [] Pre-surgical visit [] Trauma [] Long length of stay [] ICU visit [] Other: Relational/Emotional Strength [x] Patient feels connected with others/family/visitors/staff [] Distress [] Loneliness/isolation [] Abandonment Spirituality of Patient [] Person of Radha [] Attends Temple of their Radha [] Believes in Prayer [] Reads Bible or Hoahaoism materials [] There are Spiritual issues to be addressed Clother In Interventions [] Prayer [] Active listening [] Non-anxious presence [] Spiritual/emotional support [] Crisis/trauma care [] Spiritual counseling [] Bereavement support [] Provided bereavement packet [] Provided Bible/devotional materials [] Provided toy/stuffed animal, coloring book to patient or family member [] Provided Communion [] Anointing/[place] [] Salvation [] Completed spiritual assessment [] Other: Impact on Illness or Injury [] Angry [] Fearful [] Anxious [] Often cries [] Exhaustion [] Unable to work [] Unable to attend confucianism [] Unable to walk/stand [] Unable to read [] Unable to drive [] Unable to eat/drink [] Unable to sleep [] Unable to be with family [] Patient intubated [] Other: Summary had MRI unable to coomuincate with staff Time spent with patient 5 mins
[2021-12-08] MEDS: cefepime 1,000 MG in sodium chloride 0.9% (plus) 50 ML 100 MG IV ×2 (12:32→23:42)
--- NOTE | 2021-12-08 13:30 | PC.PHAR ---
PT UNABLE TO VERIFY MEDICATIONS- UNABLE TO REACH PTS - PHARMACY VERIFIED LAST FILLED - VERIFIED MEDS USING EXTERNAL MED LIST LAST FILLED
[2021-12-09] VITALS (9 sets, daily range): BP systolic 106–116; BP diastolic 56–74; PULSE 61–69; RESP 16–18; TEMP 36.4–37.3; O2SAT 90–99
[2021-12-09 05:31] LABS: Basophils % 0.1 %; Hematocrit 31.8 % (42.0-52.0); Lymphocytes # 0.8 10^3/uL (0.8-4.8); Lymphocytes % 4.3 %; Mean Corpuscular HGB Conc 31.4 g/dL (30.0-36.0); Mean Corpuscular Hemoglobin 29.3 pg (28.0-34.0); Mean Corpuscular Volume 93.3 fl (80-94); Mean Platelet Volume 12.1 fL (7.4-10.4); Monocytes % 5.6 %; Neutrophils # 16.13 10^3/uL (1.8-7.7); Neutrophils % 89.3 %; Nucleated Red Blood Cells % 0.2 %; Platelet Count 175 10^3/cmm (130-400); Red Blood Count 3.41 10^6/uL (4.1-5.3); Red Cell Distribution Width 17.4 % (12.1-15.1); White Blood Count 18.1 10^3/uL (4.0-10.0)
[2021-12-09 05:49] LABS: Albumin Level 2.5 g/dL (3.5-5.2); Alkaline Phosphatase 128 U/L (40-130); Anion Gap 21.2 (5-19); Aspartate Amino Transferase 650 U/L (0-40); Blood Urea Nitrogen 79 mg/dL (8-23); Calcium 7.8 mg/dL (8.5-10.5); Carbon Dioxide 15 mmol/L (22-29); Chloride 101 mmol/L (98-107); Globulin 3.9 g/dL (1.3-4.6); Glucose 93 mg/dL (65-115); Osmolality Calculated 297 mOsm/kg (285-295); Potassium 5.2 mmol/L (3.5-5.1); Sodium 132 mmol/L (136-145); Total Bilirubin 1.8 mg/dL (0.15-1.2); Total Protein 6.4 g/dL (6.6-8.7)
[2021-12-09 06:03] LABS: Alanine Aminotransferase 1133 U/L (0-41)
--- NOTE | 2021-12-09 06:54 | PC.NURSE ---
Patient transported downstairs to nuclear medicine by wheelchair.
--- NOTE | 2021-12-09 07:00 | NM_ITS ---
WS: [id number] NUCLEAR MEDICINE HIDA SCAN CLINICAL INFORMATION: GB thickened TECHNIQUE: Following intravenous administration of 8.1 mCi of technetium 99m mebrofenin, images of th e abdomen were obtained over the course of 60 minutes. Next, gallbladder ejection fraction was determ ined by obtaining preprandial and one-hour postprandial images of the gallbladder following oral kory stion of Ensure. COMPARISON: Ultrasound December 07, 2021 FINDINGS: Hepatic uptake at 5 minutes. Hepatomegaly. Gallbladder is visualized by 120 minutes. No evidence of a cute cholecystitis. Normal small bowel and common bile duct activity. Normal hepatic excretion. Gallbladder ejection fraction is 0%. No significant gallbladder emptying at 71 minutes. NM/NM hepatobiliary w phar* [id number] IMPRESSION: 1. No significant gallbladder emptying at 71 minutes. Findings compatible with gallbladder dysfunction and suspicious for chronic cholecystitis. 2. No evidence of acute cholecystitis.
--- NOTE | 2021-12-09 08:32 | PC.NURSE ---
Patient out for Nuc Med this am at report. Back at 0820 and still NPO. Will hold medication until second round of images from nuc med in approx [address] Malik notified
--- NOTE | 2021-12-09 08:36 | PC.NURSE ---
Went to [facility] at 0835 for second round of images.
--- NOTE | 2021-12-09 09:12 | PM.PN ---
Subjective Subjective: Patient is oriented to himself however confused When I asked him how he is doing he said he just came back from his own is at the bedside Gallbladder HIDA scan today 5.2 potassium we will give him Kayexalate Urine is concentrated Right upper quadrant is nontender Vitals/I&O/Wt Last Vital Signs Temp 98.1 F 12/09/21 04:00 Pulse 61 12/09/21 08:00 Resp 16 12/09/21 08:00 BP 116/69 12/09/21 08:00 Pulse Ox 97 12/09/21 08:00 O2 Del Method 12/09/21 08:00 O2 Flow Rate 2 12/09/21 04:00 12/08/21 12/09/21 12/09/21 22:59 06:59 14:59 Intake Total 240 / 1340 110 / 1450 Output Total 450 / 450 Balance 240 / 1340 -340 / 1000 Weight last 48 hrs Weight 65.408 kg Weight 68.039 kg Physical Exam Narrative: She was sitting in a wheelchair Breath is about the Patient is pleasantly confused Awake and alert Able to move all of his extremities Right upper quadrant is nontender Abdomen is benign and soft EOMI, PERRLA Patient is on room air Bilateral breath sounds without active wheezing or rhonchi Urinary Catheter Management: Pritchard: Cath Placed During This Visit: yes Reason for Continuing Indwelling Catheter: Acute Urinary Retention or Obstruction Urinary Catheter Date of Insertion: 12/07/21 Urinary Catheter Time of Insertion: 22:00 Data : 12/09/21 05:16 12/09/21 05:16 Micro: Microbiology 12/07/21 19:08 Blood Culture - Preliminary Blood NEGATIVE TO DATE 12/07/21 19:05 Blood Culture - Preliminary Blood NEGATIVE TO DATE 12/07/21 22:00 MRSA Culture - Final Nose A&P Assessment and plan (1) Afib: Status: Acute (2) Acute heart failure: Status: Acute (3) Sepsis: Status: Acute (4) Acute renal failure: Status: Acute (5) Shock liver: Status: Acute (6) Pneumonia: Status: Acute (7) Acute on chronic renal insufficiency: Status: Acute (8) Sleep apnea: Status: Acute Qualifiers: Sleep apnea type: obstructive Qualified Code(s): G47.33 - Obstructive sleep apnea (adult) (pediatric) (9) Ground glass opacity present on imaging of lung: Status: Acute Plan Severe sepsis Afebrile, leukocytosis stable, Related to community-acquired pneumonia Continue antibiotics Patient is going for HIDA scan today Right upper quadrant is not tender Afebrile Leukocytosis stable Acute exacerbation of preserved action fraction heart failure Cor pulmonale Liver congestion noted Abnormal transaminases related to cor pulmonale Liver enzyme 20 down Rule out gallbladder inflammation A. 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
[2021-12-09] MEDS: budesonide 0.5 mg/2 mL Neb INHALATION ×2 (09:34→20:21)
[2021-12-09] MEDS: sodium polystyrene sulfonate 15 gm/60 mL Btl PO (10:55)
[2021-12-09] MEDS: sodium chloride 0.9% 1,000 ML 75 ML IV (10:55)
[2021-12-09] MEDS: pantoprazole DR 40 mg Tablet PO ×2 (10:55→18:14)
[2021-12-09] MEDS: apixaban 5 mg Tablet 2.5 MG PO (18:13)
[2021-12-09] MEDS: cefepime 1,000 MG in sodium chloride 0.9% (plus) 50 ML 100 MG IV (21:57)
[2021-12-10] VITALS (9 sets, daily range): BP systolic 118–137; BP diastolic 64–90; PULSE 64–110; RESP 16–22; TEMP 36.4–36.8; O2SAT 93–99
[2021-12-10] MEDS: vancomycin 1,000 MG in sodium chloride 0.9% 250 ML 250 MG IV (01:55)
[2021-12-10 04:02] LABS: Basophils % 0.1 %; Eosinophils % 0.1 %; Hematocrit 31.4 % (42.0-52.0); Lymphocytes # 0.9 10^3/uL (0.8-4.8); Lymphocytes % 4.8 %; Mean Corpuscular HGB Conc 31.8 g/dL (30.0-36.0); Mean Corpuscular Hemoglobin 29.2 pg (28.0-34.0); Mean Corpuscular Volume 91.5 fl (80-94); Mean Platelet Volume 11.8 fL (7.4-10.4); Monocytes # 1.3 10^3/uL (0.2-0.9); Monocytes % 6.9 %; Neutrophils # 16.77 10^3/uL (1.8-7.7); Neutrophils % 87.3 %; Nucleated Red Blood Cells # 0.1 /100WBC; Nucleated Red Blood Cells % 0.3 %; Platelet Count 152 10^3/cmm (130-400); Red Blood Count 3.43 10^6/uL (4.1-5.3); Red Cell Distribution Width 17.5 % (12.1-15.1); White Blood Count 19.2 10^3/uL (4.0-10.0)
[2021-12-10 04:27] LABS: Albumin Level 2.9 g/dL (3.5-5.2); Alkaline Phosphatase 190 U/L (40-130); Anion Gap 20.5 (5-19); Aspartate Amino Transferase 550 U/L (0-40); Carbon Dioxide 16 mmol/L (22-29); Chloride 103 mmol/L (98-107); Glucose 115 mg/dL (65-115); Osmolality Calculated 305 mOsm/kg (285-295); Potassium 4.5 mmol/L (3.5-5.1); Sodium 135 mmol/L (136-145); Total Bilirubin 2.3 mg/dL (0.15-1.2); Total Protein 6.9 g/dL (6.6-8.7)
[2021-12-10 04:42] LABS: Alanine Aminotransferase 1119 U/L (0-41)
[2021-12-10 04:43] LABS: Blood Urea Nitrogen 81 mg/dL (8-23)
[2021-12-10] MEDS: budesonide 0.5 mg/2 mL Neb INHALATION ×2 (07:30→20:06)
--- NOTE | 2021-12-10 08:52 | PC.SOCIAL ---
IMM update Imm updated with patient at bedside. Copy of page 2 provided. Patient verbalized understanding. Copy in chart initialed, dated and timed.
[2021-12-10] MEDS: apixaban 5 mg Tablet 2.5 MG PO ×2 (09:08→18:23)
[2021-12-10] MEDS: pantoprazole DR 40 mg Tablet PO ×2 (09:08→18:24)
[2021-12-10] MEDS: FUROsemide 20 mg Tablet PO (09:12)
[2021-12-10 09:40] LABS: Hepatitis A Antibody IgM Non-Reactive (Nonreactive); Hepatitis B Core AB, Total Non-Reactive (Nonreactive); Hepatitis B Surface Antigen Non-Reactive (Nonreactive); Hepatitis C Virus Antibody Non-Reactive (Nonreactive)
[2021-12-10 09:43] LABS: Hepatitis B Surface AB < 3.5 (11.5-1000)
--- NOTE | 2021-12-10 10:47 | PM.PN ---
Subjective Subjective: This morning patient was asking about the plan My plan is to consult Dr. Dai on Sunday He has persistent leukocytosis Hacking cough Sputum cultures are pending Liver enzymes are trending down gradually Abdomen is nontender He still requiring 2 L of oxygen MRSA negative vancomycin has been discontinued Urine is extremely dark I will continue IV fluid hydration today Vitals/I&O/Wt Last Vital Signs Temp 98.0 F 12/10/21 08:00 Pulse 67 12/10/21 08:00 Resp 18 12/10/21 08:00 BP 130/66 12/10/21 08:00 Pulse Ox 97 12/10/21 08:00 O2 Del Method 12/10/21 08:00 O2 Flow Rate 2 12/10/21 08:00 12/09/21 12/10/21 12/10/21 22:59 06:59 14:59 Intake Total 23.333 / 23.333 1276.667 / 1300.000 120 / 120 Output Total 250 / 250 250 / 500 Balance -226.667 / -539.537 2111.667 / 800.000 120 / 120 Physical Exam Narrative: Was trying to take a sip of juice On 2 L Bilateral breath sounds with mild rhonchi Abdomen soft no right upper quadrant tenderness Looks dehydrated Awake and alert however short attention span He did asked me relevant questions No active signs of stroke S1, S2 variable Urinary Catheter Management: Pritchard: Cath Placed During This Visit: yes Reason for Continuing Indwelling Catheter: Acute Urinary Retention or Obstruction Urinary Catheter Date of Insertion: 12/07/21 Urinary Catheter Time of Insertion: 22:00 Data : 12/10/21 03:41 12/10/21 03:41 A&P Assessment and plan (1) Afib: (2) Acute heart failure: (3) Mitral valve regurgitation: (4) Sepsis: (5) Acute renal failure: (6) Shock liver: (7) Pneumonia: (8) Acute on chronic renal insufficiency: (9) Ground glass opacity present on imaging of lung: Plan Sepsis: Related to [facility] pneumonia I have continued cefepime 1 g every 12 hours Check LDH Discontinue vancomycin MRSA PCR negative Groundglass opacity evident on CT scan gallbladder not showing acute cholecystitis changes Liver enzymes trending down Patient is very dry hacking cough however does bring up white sputum, sputum culture has been sent Afebrile Will consult Dr. Dai on Sunday Abnormal liver enzymes: Trending down No signs of cholecystitis hepatitis panel negative Cor pulmonale heart failure currently patient is looking dehydrated urine is extremely dark continue IV fluid hydration hold off on Lasix Patient uses CPAP at night He does well on room air in the morning A. 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
[2021-12-10] MEDS: sodium chloride 0.9% 1,000 ML 75 ML IV (11:18)
[2021-12-10] MEDS: sodium bicarbonate 650 mg Tablet PO ×3 (11:18→21:17)
[2021-12-10] MEDS: cefepime 1,000 MG in sodium chloride 0.9% (plus) 50 ML 100 MG IV ×2 (11:18→23:18)
[2021-12-10 12:03] LABS: Lactate Dehydrogenase 749 U/L (135-225)
[2021-12-10] MEDS: doxycycline 100 mg Tablet PO (18:23)
[2021-12-11] VITALS (12 sets, daily range): BP systolic 99–129; BP diastolic 65–83; PULSE 63–126; RESP 18–26; TEMP 36.3–37.7; O2SAT 92–98
[2021-12-11 05:15] LABS: Basophils % 0.1 %; Eosinophils % 0.2 %; Hematocrit 32.1 % (42.0-52.0); Hemoglobin 10.1 g/dL (11.7-16.6); Lymphocytes # 0.6 10^3/uL (0.8-4.8); Lymphocytes % 3.2 %; Mean Corpuscular HGB Conc 31.5 g/dL (30.0-36.0); Mean Corpuscular Volume 92.2 fl (80-94); Mean Platelet Volume 12.3 fL (7.4-10.4); Monocytes # 1.3 10^3/uL (0.2-0.9); Neutrophils # 16.63 10^3/uL (1.8-7.7); Nucleated Red Blood Cells # 0.1 /100WBC; Nucleated Red Blood Cells % 0.3 %; Platelet Count 127 10^3/cmm (130-400); Red Blood Count 3.48 10^6/uL (4.1-5.3); Red Cell Distribution Width 17.5 % (12.1-15.1); White Blood Count 18.7 10^3/uL (4.0-10.0)
[2021-12-11 05:36] LABS: Alkaline Phosphatase 171 U/L (40-130); Anion Gap 19.1 (5-19); Aspartate Amino Transferase 269 U/L (0-40); Blood Urea Nitrogen 78 mg/dL (8-23); Calcium 8.1 mg/dL (8.5-10.5); Carbon Dioxide 17 mmol/L (22-29); Chloride 110 mmol/L (98-107); Globulin 3.6 g/dL (1.3-4.6); Glucose 137 mg/dL (65-115); Osmolality Calculated 319 mOsm/kg (285-295); Potassium 4.1 mmol/L (3.5-5.1); Sodium 142 mmol/L (136-145); Total Bilirubin 2.2 mg/dL (0.15-1.2); Total Protein 6.6 g/dL (6.6-8.7)
[2021-12-11 05:48] LABS: Alanine Aminotransferase 790 U/L (0-41)
[2021-12-11] MEDS: sodium chloride 0.9% 1,000 ML 75 ML IV ×2 (06:36→20:34)
--- NOTE | 2021-12-11 08:00 | PC.NURSE ---
IV: Pt was found in bed with blood on bedding and gown. IV catheter removed by pt. Pressure applied to site of IV until bleeding fully stopped. Pt bedding and gown changed. Per Dr. Malik, new IV placement is not necessary at this time.
[2021-12-11] MEDS: budesonide 0.5 mg/2 mL Neb INHALATION ×2 (08:38→20:15)
--- NOTE | 2021-12-11 08:48 | CTR_ITS ---
PROCEDURE INFORMATION: Exam: CT Head Without Contrast Exam date and time: 12/11/2021 9:08 AM Age: 81 years old Clinical indication: Altered mental status/memory loss; Confusion or disorientation; Additional info: Confused TECHNIQUE: Imaging protocol: Computed tomography of the head without contrast. Radiation optimization: All CT scans at this facility use at least one of these dose optimization techniques: automated exposure control; mA and/or kV adjustment per patient size (includes targeted exams where dose is matched to clinical indication); or iterative reconstruction. COMPARISON: MR head wo con* [id number] 11/08/2021 2:13 PM RADIATION DOSE METRICS: Total DLP (mGy-cm): 1055.58 FINDINGS: Brain: No intracranial hemorrhage, edema or other acute abnormality is seen in the brain. There is generalized chronic atrophy with prominence of the ventricles and sulci. There is decreased white matter density which is consistent with chronic small vessel white matter ischemia. Cerebral ventricles: The ventricles are prominent due to chronic atrophy. Paranasal sinuses: Visualized sinuses are unremarkable. No fluid levels. Mastoid air cells: Visualized mastoid air cells are well aerated. Bones/joints: Unremarkable. No acute fracture. Soft tissues: Unremarkable. CT/CT head wo con* [id number] IMPRESSION: 1. No acute intracranial abnormality. 2. Chronic atrophy with chronic white matter ischemic changes.
--- NOTE | 2021-12-11 08:51 | CTR_ITS ---
PROCEDURE INFORMATION: Exam: CT Abdomen And Pelvis Without Contrast Exam date and time: 12/11/2021 9:10 AM Age: 81 years old Clinical indication: Abdominal pain; Generalized; Additional info: Confused TECHNIQUE: Imaging protocol: Computed tomography of the abdomen and pelvis without contrast. Radiation optimization: All CT scans at this facility use at least one of these dose optimization techniques: automated exposure control; mA and/or kV adjustment per patient size (includes targeted exams where dose is matched to clinical indication); or iterative reconstruction. COMPARISON: CT chest abd pel w con* 03/19/2020 3:16 PM RADIATION DOSE METRICS: Total DLP (mGy-cm): 598.26 FINDINGS: Lungs: Some ground-glass opacities are seen in the right middle lobe. Bilateral lower lobe atelectasis. Pleural spaces: Small bilateral pleural effusions. Heart: Cardiomegaly. Liver: Normal. No mass. Gallbladder and bile ducts: Normal. No calcified stones. No ductal dilation. Pancreas: Normal. No ductal dilation. Spleen: Normal. No splenomegaly. Adrenal glands: Normal. No mass. Kidneys and ureters: Small left renal cyst. No hydronephrosis. Stomach and bowel: Colonic diverticulosis. Mild mural thickening is seen involving the hepatic flexure and transverse colon. Appendix: No evidence of appendicitis. Intraperitoneal space: Small volume abdominopelvic ascites. Vasculature: Fusiform infrarenal abdominal aortic aneurysm measures up to 4.4 cm, similar to 03/19/2020. Lymph nodes: Unremarkable. No enlarged lymph nodes. Urinary bladder: Pritchard catheter in the bladder. Reproductive: Unremarkable as visualized. Bones/joints: Unremarkable. No acute fracture. Soft tissues: Unremarkable. CT/CT abdomen pelvis wo con [id number] IMPRESSION: 1. Mild mural thickening of the transverse colon could reflect a nonspecific colitis. 2. Small bilateral pleural effusions and small volume ascites. 3. Skin ground-glass opacities are partially imaged in the right middle lobe and could reflect aspiration or pneumonia. COMMENTS: Consistent with the [employer]'s Incidental Findings Committee white paper (J Am Ja Radiol 2018): Any incidental renal lesion less than 1 cm or classified as too small to characterize, or any incidental cystic renal lesion characterized as simple-appearing, is likely benign. No follow-up imaging is recommended for these lesions per consensus recommendations based on imaging criteria.
--- NOTE | 2021-12-11 09:32 | PC.NURSE ---
Per Dr. Malik, hold Eliquis until further notice.
[2021-12-11 09:33] LABS: ABG PCO2 24.6 mmHg (35-45); ABG PH Result 7.46 (7.35-7.45); Arterial Blood Gas Hematocrit 31.4 % (42-52); Base Excess ABG -5.1 mmol/L (-2.0-2.0); Blood Gas Allen Test Pos; Blood Gas Operator Identificat glc; Blood Gas Sample Site Radial, right; Blood Gas Sample Type Arterial; Fractionated Inspired Oxygen 2.8 %; HCO3 ABG 17.5 mmol/L (22-26); Oxygen Device NC; PO2 ABG 77.1 mmHg (80.0-100.0)
[2021-12-11 09:34] LABS: Prolactin 26.25 ng/mL (4.0-15.2)
[2021-12-11] MEDS: sodium bicarbonate 650 mg Tablet PO ×3 (09:35→20:26)
[2021-12-11] MEDS: pantoprazole DR 40 mg Tablet PO ×2 (09:35→17:26)
[2021-12-11] MEDS: doxycycline 100 mg Tablet PO (09:35)
--- NOTE | 2021-12-11 09:52 | P.PN_ITS ---
Subjective Subjective: Patient has been very agitated overnight I will resume his gabapentin I will request CT head CT abdomen pelvis Noted some petechiae around his flanks, hemoglobin stable No hemodynamic instability Patient pulled his IV force time because of agitation Creatinine improved with IV fluids Liver enzymes trending down No recent falls Vitals/I&O/Wt Last Vital Signs Temp 97.3 F L 12/11/21 07:27 Pulse 91 12/11/21 08:49 Resp 18 12/11/21 08:40 BP 119/69 12/11/21 07:27 Pulse Ox 96 12/11/21 08:40 O2 Del Method 12/11/21 08:40 O2 Flow Rate 2 12/11/21 08:40 12/10/21 12/11/21 12/11/21 22:59 06:59 14:59 Intake Total 50 / 410 1050 / 1460 Output Total 600 / 600 300 / 900 Balance -550 / -190 750 / 560 Physical Exam Narrative: Patient is confused I do not see active signs of stroke I do not see additional seizures Looks dehydrated S1, S2 variable Abdomen soft Urine color has improved No extremity no edema Multiple petechiae noted around his flank and right hip area No recent falls reported by the nursing staff Urinary Catheter Management: Pritchard: Cath Placed During This Visit: yes Reason for Continuing Indwelling Catheter: Acute Urinary Retention or Obstruc tion Urinary Catheter Date of Insertion: 12/07/21 Urinary Catheter Time of Insertion: 22:00 Data : 12/11/21 05:05 12/11/21 05:05 Micro: Microbiology 12/09/21 16:25 Gram Stain - Final Sputum - Expectorated Sputum Sputum Culture - Preliminary A&P Assessment and plan (1) Afib: (2) Acute heart failure: (3) Mitral valve regurgitation: (4) Sepsis: (5) Acute renal failure: (6) Shock liver: (7) Pneumonia: (8) Acute on chronic renal insufficiency: (9) Ground glass opacity present on imaging of lung: (10) Sleep apnea: Qualifiers: Sleep apnea type: obstructive Qualified Code(s): G47.33 - Obstructive sleep apnea (adult) (pediatric) Plan Metabolic encephalopathy related to sepsis Community-acquired pneumonia Currently patient is on room air CT scan of the chest did show chronic lung last positives Sputum culture unremarkable Patient is currently on cefepime and doxycycline No significant improvement in leukocytosis I requested CT head Petechiae of lower extremity Requested DIC panel CT abdomen pelvis without contrast Hold Eliquis Globin stable patient is hemodynamically stable Acute on chronic kidney disease Creatinine improving with IV fluid hydration Holding Lasix for now DVT prophylaxis SCDs A. 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
[2021-12-11 10:43] LABS: Fibrinogen 293 mg/dL (174-498); INR 4.67 (0.8-1.2); Partial Thromboplastin Time 42.1 SECONDS (23.9-36.7)
[2021-12-11 10:53] LABS: D Dimer 16.97 ug/mIFEU (0-0.59)
[2021-12-11 11:42] LABS: Add Urine Microscopic? YES; Bilirubin Urine Neg (Negative); Blood Urine 3+ (Negative); Glucose Urine UA Norm (Normal); Ketones Urine 1+ (Negative); Leukocyte Esterase Urine Trace (Negative); Nitrate Urine Negative (Negative); Protein Urine 1+ (Negative); Urine Appearance Clear (CLEAR); Urine Color Dark Yellow (Yellow); Urobilinogen Urine Norm (Negative); pH Urine 5 (5-7)
[2021-12-11 11:43] LABS: Add Urine Culture? Yes; Bacteria Urine 1+ /hpf; Mucus Urine 1+ /hpf; RBC Urine 15-25 /hpf (0-2); WBC Urine 0-4 /hpf (0-5)
[2021-12-11] MEDS: piperacillin-tazobactam 3.375 GM in sodium chloride 0.9% (plus) 50 ML IV ×2 (12:09→17:30)
[2021-12-11] MEDS: lanolin oint 7 gm 1 APPLIC TOPICAL (14:47)
[2021-12-11] MEDS: OLANZapine 5 mg TABLET 7.5 MG PO (20:26)
[2021-12-11] MEDS: gabapentin 100 mg Capsule PO (20:26)
--- NOTE | 2021-12-11 23:55 | ECG_ITS ---
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 Measurements Intervals [place] Rate: 133 P: [place]: QRS: 58 QRSD: 98 T: 235 QT: 295 QTc: 439 Interpretive Statements ATRIAL FIBRILLATION WITH RAPID VENTRICULAR RESPONSE ST DEVIATION AND MODERATE T-WAVE ABNORMALITY, CONSIDER LATERAL ISCHEMIA [-0.1+ mV T-WAVE IN I/aVL/V5/V6] ST DEVIATION AND MODERATE T-WAVE ABNORMALITY, CONSIDER INFERIOR ISCHEMIA [-0.1+ mV T-WAVE IN II/aVF] Compared to ECG 12/08/2021 02:50:38 T-wave abnormality now present Sinus bradycardia no longer present First degree AV block no longer present Intraventricular conduction delay no longer present ST (T wave) deviation no longer present Possible ischemia still present Electronically Signed On 12-13-2021 0:06:26 CDT by Ce Huerta M.D. [id number]
[2021-12-12] VITALS (7 sets, daily range): BP systolic 103–122; BP diastolic 59–83; PULSE 110–138; RESP 18–19; TEMP 36.7; O2SAT 93–96
[2021-12-12] MEDS: lactated ringers 1,000 ML 999 ML IV (00:09)
[2021-12-12] MEDS: haloperidol inj 5 mg/mL INJ 1 mL 1 MG IM (00:09)
[2021-12-12 00:14] LABS: ABG PCO2 22.6 mmHg (35-45); ABG PH Result 7.47 (7.35-7.45); Arterial Blood Gas Hematocrit 31.3 % (42-52); Base Excess ABG -5.9 mmol/L (-2.0-2.0); Blood Gas Allen Test Pos; Blood Gas Sample Site Radial, right; Blood Gas Sample Type Arterial; HCO3 ABG 16.4 mmol/L (22-26); Oxygen Device NC; PO2 ABG 64.6 mmHg (80.0-100.0)
[2021-12-12] MEDS: dilTIAZem 5 mg/mL SDV 5 mL 10 MG IVP (00:27)
[2021-12-12 00:39] LABS: Basophils % 0.1 %; Eosinophils % 0.1 %; Hematocrit 33.2 % (42.0-52.0); Lymphocytes # 0.8 10^3/uL (0.8-4.8); Lymphocytes % 3.9 %; Mean Corpuscular HGB Conc 30.1 g/dL (30.0-36.0); Mean Corpuscular Hemoglobin 29.2 pg (28.0-34.0); Mean Corpuscular Volume 96.8 fl (80-94); Mean Platelet Volume 12.6 fL (7.4-10.4); Monocytes # 1.4 10^3/uL (0.2-0.9); Monocytes % 7.5 %; Neutrophils # 16.74 10^3/uL (1.8-7.7); Neutrophils % 87.8 %; Nucleated Red Blood Cells # 0.1 /100WBC; Nucleated Red Blood Cells % 0.6 %; Platelet Count 120 10^3/cmm (130-400); Red Blood Count 3.43 10^6/uL (4.1-5.3); Red Cell Distribution Width 17.6 % (12.1-15.1); White Blood Count 19.1 10^3/uL (4.0-10.0)
[2021-12-12 01:01] LABS: INR 4.16 (0.8-1.2)
[2021-12-12 01:02] LABS: Fibrinogen 267 mg/dL (174-498)
[2021-12-12 01:11] LABS: D Dimer 15.92 ug/mIFEU (0-0.59)
[2021-12-12 01:13] LABS: Alanine Aminotransferase 659 U/L (0-41); Albumin Level 2.7 g/dL (3.5-5.2); Alkaline Phosphatase 153 U/L (40-130); Anion Gap 20.9 (5-19); Aspartate Amino Transferase 192 U/L (0-40); Blood Urea Nitrogen 68 mg/dL (8-23); Calcium 8.1 mg/dL (8.5-10.5); Carbon Dioxide 16 mmol/L (22-29); Chloride 109 mmol/L (98-107); Globulin 3.9 g/dL (1.3-4.6); Glucose 129 mg/dL (65-115); Osmolality Calculated 315 mOsm/kg (285-295); Potassium 3.9 mmol/L (3.5-5.1); Sodium 142 mmol/L (136-145); Total Protein 6.6 g/dL (6.6-8.7)
[2021-12-12 01:20] LABS: Lactate (Lactic Acid level) 4.2 mmol/L (0.5-2.2); Troponin(5th) Baseline 105 ng/L (0-15)
[2021-12-12] MEDS: LORazepam 2 mg/mL oral liquid (mL) 1 MG SUBLINGUAL (01:32)
[2021-12-12 01:34] LABS: NT Pro B Type Natriuretic Pept > 70000 pg/mL (0-450)
--- NOTE | 2021-12-12 02:27 | ECG_ITS ---
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 Measurements Intervals [place] Rate: 137 P: [place]: QRS: 28 QRSD: 105 T: 213 QT: 301 QTc: 455 Interpretive Statements ATRIAL FIBRILLATION WITH RAPID VENTRICULAR RESPONSE ST DEVIATION AND MODERATE T-WAVE ABNORMALITY, CONSIDER LATERAL ISCHEMIA [-0.1+ mV T-WAVE IN I/aVL/V5/V6] ST DEVIATION AND MODERATE T-WAVE ABNORMALITY, CONSIDER INFERIOR ISCHEMIA [-0.1+ mV T-WAVE IN II/aVF] Compared to ECG 12/12/2021 00:07:44 No significant changes Electronically Signed On 12-13-2021 0:20:03 CDT by Ce Huerta M.D. [id number]
[2021-12-12] MEDS: piperacillin-tazobactam 3.375 GM in sodium chloride 0.9% (plus) 50 ML IV (02:35)
--- NOTE | 2021-12-12 03:44 | PC.NURSE ---
0000 patient becoming more restless and work of breathing increasing. Pulled out PIV x2. Patient unable to follow commands at this time. Updated family and MD of patient condition. Patient found to be in A fib on monitor. Orders received. 0100Wife to bedside. Patient still very restless. Orders received. 0230 Patient now resting comfortably in bed. Will continue to monitor patient.
[2021-12-12 04:12] LABS: Hematocrit 27.2 % (42.0-52.0); Hemoglobin 8.8 g/dL (11.7-16.6); Lymphocytes # 0.7 10^3/uL (0.8-4.8); Lymphocytes % 3.9 %; Mean Corpuscular HGB Conc 32.4 g/dL (30.0-36.0); Mean Corpuscular Hemoglobin 28.6 pg (28.0-34.0); Mean Corpuscular Volume 88.3 fl (80-94); Mean Platelet Volume 12.4 fL (7.4-10.4); Monocytes # 1.2 10^3/uL (0.2-0.9); Monocytes % 7.3 %; Neutrophils # 14.76 10^3/uL (1.8-7.7); Neutrophils % 88.1 %; Nucleated Red Blood Cells # 0.1 /100WBC; Nucleated Red Blood Cells % 0.7 %; Platelet Count 104 10^3/cmm (130-400); Red Blood Count 3.08 10^6/uL (4.1-5.3); Red Cell Distribution Width 17.4 % (12.1-15.1); White Blood Count 16.8 10^3/uL (4.0-10.0)
[2021-12-12 04:33] LABS: Alanine Aminotransferase 595 U/L (0-41); Albumin Level 2.4 g/dL (3.5-5.2); Alkaline Phosphatase 129 U/L (40-130); Aspartate Amino Transferase 181 U/L (0-40); Blood Urea Nitrogen 68 mg/dL (8-23); Calcium 7.7 mg/dL (8.5-10.5); Carbon Dioxide 18 mmol/L (22-29); Chloride 109 mmol/L (98-107); Globulin 3.6 g/dL (1.3-4.6); Glucose 129 mg/dL (65-115); Osmolality Calculated 313 mOsm/kg (285-295); Sodium 141 mmol/L (136-145); Total Bilirubin 2.8 mg/dL (0.15-1.2)
[2021-12-12 04:36] LABS: Troponin 5 2HR 138.4 ng/L (0-15); Troponin 5 2HR Delta 33.4 ABS# (0-10)
--- NOTE | 2021-12-12 04:58 | ECG_ITS ---
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 Measurements Intervals [place] Rate: 119 P: [place]: QRS: 27 QRSD: 115 T: 214 QT: 320 QTc: 451 Interpretive Statements ATRIAL FLUTTER/fibrillation WITH RAPID VENTRICULAR RESPONSE MODERATE INTRAVENTRICULAR CONDUCTION DELAY [110+ ms QRS DURATION] ST DEVIATION AND MODERATE T-WAVE ABNORMALITY, CONSIDER LATERAL ISCHEMIA [-0.1+ mV T-WAVE IN I/aVL/V5/V6] ST DEVIATION AND MODERATE T-WAVE ABNORMALITY, CONSIDER INFERIOR ISCHEMIA [-0.1+ mV T-WAVE IN II/aVF] Compared to ECG 12/12/2021 02:27:35 Intraventricular conduction delay now present Atrial fibrillation no longer present T-wave abnormality still present Possible ischemia still present Electronically Signed On 12-13-2021 0:20:38 CDT by Ce Huerta M.D. [id number]
[2021-12-12 07:44] LABS: Troponin 5 6HR 160.3 ng/L (0-15); Troponin 5 6HR Delta 55 ng/L (0-12)
[2021-12-12] MEDS: budesonide 0.5 mg/2 mL Neb INHALATION (08:33)
--- NOTE | 2021-12-12 10:29 | PC.SOCIAL ---
IMM Updated Updated pt's on IMM. No questions voiced. Provided pt's a copy. Initialed, dated, & timed copy in chart.
--- NOTE | 2021-12-12 11:30 | P.DS_ITS ---
Discharge Providers Date of Admission: 12/07/21 19:52 Date of Discharge: December 12, 2021 Attending Provider at Admission: Hermann Azar MD Attending Provider at Discharge: Semaj Malik MD Primary Care Provider: Nikita Mosher MD Diagnoses at Discharge Discharge Diagnosis (1) Afib: Status: Acute (2) Acute heart failure: Status: Acute (3) Mitral valve regurgitation: Status: Acute (4) Sepsis: Status: Acute (5) Acute renal failure: Status: Acute (6) Shock liver: Status: Acute (7) Pneumonia: Status: Acute (8) Acute on chronic renal insufficiency: Status: Acute (9) Ground glass opacity present on imaging of lung: Status: Acute (10) Sleep apnea: Status: Acute Qualifiers: Sleep apnea type: obstructive Qualified Code(s): G47.33 - Obstructive sleep apnea (adult) (pediatric) Reason for Visit Reason for Visit: weakness / lethargy Hospital Course Hospital Course 81-year-old male who was recently discharged from the hospital when he presented after a fall, stroke work-up was done which was unremarkable this time he presented with shortness of breath and generalized weakness. At the time of admission he was requiring 2 L of oxygen, he was diagnosed with sepsis related to clinical pneumonia he was initial concern for congestive heart failure exacerbation he was given diuretics however that dropped his blood pressure significantly. Over the course of time his mentation deteriorated and he was not eating at all became dehydrated. Lasix and AV tere blocking agents were discontinued. He was given IV fluids that improved his creatinine along urine output. CT head was done which did not show any acute neurological changes, CT abdomen pelvis showed transverse colon colitis. His liver enzymes were trending down HIDA scan was done to rule out cholecystitis which was unremarkable. He went to A. fib RVR with worsening of mentation and increase of troponin. He also has DIC related to his sepsis. Because of multiorgan failure and worsening of mentation with poor p.o. intake his has decided to pursue hospice care at a group home. Patient is a poor candidate for coronary angiogram. Please note his cultures has remained negative throughout his hospitalization. He was given cefepime initially there was transition to Zosyn after diagnosis of colitis. Physical Exam Narrative: Extremely dehydrated Not able to make eye contact Fatigue lethargic Abdomen is soft Patient not able to follow commands to conduct appropriate neuro exam Poor urine output There is petechiae around his flanks Patient looks extremely dehydrated Labored breathing 2 L nasal cannula Urinary Catheter Management: Pritchard: Cath Placed During This Visit: yes Reason for Continuing Indwelling Catheter: Acute Urinary Retention or Obstruction Urinary Catheter Date of Insertion: 12/07/21 Urinary Catheter Time of Insertion: 22:00 Discharge Data Studies Completed and Pending Completed Studies During Hospitalization Category Date Time Status CT abdomen pelvis wo con [id number] Routine Cat Scan 12/11/21 08:[address] chest wo con [id number] Routine Cat Scan 12/08/21 10:[address] head wo con* [id number] Stat Cat Scan 12/11/21 08:48 Completed XR chest 1V portable [id number] Stat Exams 12/07/21 17:33 Completed NM hepatobiliary w phar* [id number] Routine Nuc Med 12/09/21 07:00 Completed US abdomen limited [id number] Stat Ultrasound 12/07/21 20:29 Completed Pending at discharge Category Date Time Status ABG ONLY [Arterial Blood Gas W/O Coox] Stat Lab 12/07/21 20:36 Ordered Blood Culture Stat Lab 12/07/21 19:08 Results CDIFF [Clostridioides Difficile PCR] Routine Lab 12/11/21 10:00 Uncollected Complete Blood Count w/Auto AM LABS Lab 12/13/21 04:00 Ordered SARS Covid-2 Antigen Stat Lab 12/12/21 Received Sputum Culture and Gram Stain Stat Lab 12/09/21 16:25 Results Urine Culture Routine Lab 12/11/21 10:49 Results Radiology Impressions Chest X-Ray 12/07/21 17:33 IMPRESSION: Imaging findings of pulmonary edema with small bilateral pleural effusions. Pneumonia should be excluded clinically. Abdomen Ultrasound 12/07/21 20:29 IMPRESSION: 1. Gallbladder sludge with gallbladder wall thickening up to 8 mm, findings are concerning for cholecystitis in the appropriate clinical setting. A nuclear medicine HIDA scan could further evaluate this as clinically indicated. 2. 4 cm infrarenal abdominal aortic aneurysm without rupture. 3. Small amount of ascites Kennedy's pouch. Chest CT 12/08/21 10:44 IMPRESSION: 1. Small bilateral pleural effusions with compressive atelectasis in the lung bases similar to November 25, 2021. 2. Small amount of hazy groundglass infiltrate in RIGHT middle lobe and RIGHT upper lobe along the fissure also similar to previous. 3. Small pericardial effusion. 4. Reactive mediastinal lymph nodes. 5. Coronary calcification. 6. No other significant changes compared to previous. Hepatobiliary Scan Nuclear Medicine 12/09/21 07:00 IMPRESSION: 1. No significant gallbladder emptying at 71 minutes. Findings compatible with gallbladder dysfunction and suspicious for chronic cholecystitis. 2. No evidence of acute cholecystitis. Head CT 12/11/21 08:48 IMPRESSION: 1. No acute intracranial abnormality. 2. Chronic atrophy with chronic white matter ischemic changes. Abdomen/Pelvis CT 12/11/21 08:51 IMPRESSION: 1. Mild mural thickening of the transverse colon could reflect a nonspecific colitis. 2. Small bilateral pleural effusions and small volume ascites. 3. Skin ground-glass opacities are partially imaged in the right middle lobe and could reflect aspiration or pneumonia. COMMENTS: Consistent with the [employer]'s Incidental Findings Committee white paper (J Am Ja Radiol 2018): Any incidental renal lesion less than 1 cm or classified as too small to characterize, or any incidental cystic renal lesion characterized as simple-appearing, is likely benign. No follow-up imaging is recommended for these lesions per consensus recommendations based on imaging criteria. Laboratory Results WBC 16.8 10^3/uL (4.0-10.0) H 12/12/21 04:03 RBC 3.08 10^6/uL (4.1-5.3) L 12/12/21 04:03 Hgb 8.8 g/dL (11.7-16.6) L 12/12/21 04:03 Hct 27.2 % (42.0-52.0) L 12/12/21 04:03 MCV 88.3 fl (80-94) 12/12/21 04:03 MCH 28.6 pg (28.0-34.0) 12/12/21 04:03 MCHC 32.4 g/dL (30.0-36.0) 12/12/21 04:03 RDW 17.4 % (12.1-15.1) H 12/12/21 04:03 Plt Count 104 10^3/cmm (130-400) L 12/12/21 04:03 MPV 12.4 fL (7.4-10.4) H 12/12/21 04:03 Neut % (Auto) 88.1 % 12/12/21 04:03 Lymph % (Auto) 3.9 % 12/12/21 04:03 [place]ides % (Auto) 7.3 % 12/12/21 04:03 Eos % (Auto) 0.0 % 12/12/21 04:03 Baso % (Auto) 0.0 % 12/12/21 04:03 Neut # (Auto) 14.76 10^3/uL (1.8-7.7) H 12/12/21 04:03 Lymph # (Auto) 0.7 10^3/uL (0.8-4.8) L 12/12/21 04:03 [place]ides # (Auto) 1.2 10^3/uL (0.2-0.9) H 12/12/21 04:03 Eos # (Auto) 0.0 10^3/uL (0.0-0.8) 12/12/21 04:03 Baso # (Auto) 0.0 10^3/uL (0.0-0.1) 12/12/21 04:03 Nucleated RBC % (auto) 0.7 % 12/12/21 04:03 Nucleated RBCs # 0.1 /100WBC 12/12/21 04:03 PT 44.20 SECONDS (12.1-14.9) H 12/11/21 10:15 INR 4.67 (0.8-1.2) H 12/11/21 10:15 APTT 42.1 SECONDS (23.9-36.7) H 12/11/21 10:15 Fibrinogen 293 mg/dL (174-498) 12/11/21 10:15 Fibrin Degrad Products Pos, 10-40 ug/mL (NEG) H 12/11/21 10:15 D-Dimer 16.97 ug/mIFEU (0-0.59) H 12/11/21 10:15 Specimen Type Arterial 12/11/21 23:52 Sample Site Radial, right 12/11/21 23:52 ABG pH 7.47 (7.35-7.45) H 12/11/21 23:52 ABG pCO2 22.6 mmHg (35-45) L 12/11/21 23:52 ABG pO2 64.6 mmHg (80.0-100.0) L 12/11/21 23:52 ABG HCO3 16.4 mmol/L (22-26) L 12/11/21 23:52 ABG Base Excess -5.9 mmol/L (-2.0-2.0) L 12/11/21 23:52 Michel Test Pos 12/11/21 23:52 Hematocrit 31.3 % (42-52) L 12/11/21 23:52 O2 Delivery Device Nc 12/11/21 23:52 O2 Liters/Min 2.0 % 12/11/21 23:52 FiO2 2.8 % 12/11/21 09:21 Wrapping Machine Tender ID ellpe 12/11/21 23:52 Sodium 141 mmol/L (136-145) 12/12/21 04:03 Potassium 4.0 mmol/L (3.5-5.1) 12/12/21 04:03 Chloride 109 mmol/L (98-107) H 12/12/21 04:03 Carbon Dioxide 18 mmol/L (22-29) L 12/12/21 04:03 Anion Gap 18.0 (5-19) 12/12/21 04:03 BUN 68 mg/dL (8-23) H 12/12/21 04:03 Creatinine 2.1 mg/dL (0.7-1.2) H 12/12/21 04:03 GFR Calculation Not Reportable 12/12/21 04:03 Glucose 129 mg/dL (65-115) H 12/12/21 04:03 Calculated Osmolality 313 mOsm/kg (285-295) H 12/12/21 04:03 Lactic Acid 2.9 mmol/L (0.5-2.2) H 12/07/21 18:10 Lactic Acid (Sepsis) 2.7 mmol/L (0.5-2.2) H 12/07/21 23:45 Lactate 4.2 mmol/L (0.5-2.2) H* 12/11/21 00:30 Calcium 7.7 mg/dL (8.5-10.5) L 12/12/21 04:03 Phosphorus 4.7 mg/dL (2.5-4.5) H 12/08/21 04:16 Magnesium 2.7 mg/dL (1.7-2.3) H 12/08/21 04:16 Total Bilirubin 2.8 mg/dL (0.15-1.2) H 12/12/21 04:03 AST 181 U/L (0-40) H 12/12/21 04:03 ALT 595 U/L (0-41) H 12/12/21 04:03 Alkaline Phosphatase 129 U/L (40-130) 12/12/21 04:03 Lactate Dehydrogenase 749 U/L (135-225) H 12/10/21 03:41 Troponin T Baseline 105 ng/L (0-15) H* 12/11/21 00:30 Troponin T 120 Minute 138.4 ng/L (0-15) H 12/12/21 04:03 Delta Troponin T 33.4 ABS# (0-10) H* 12/12/21 04:03 Troponin T Hi Sens 6Hr 160.3 ng/L (0-15) H 12/12/21 06:48 Troponin T Hi Sens 6Hr Delta 55 ng/L (0-12) H* 12/12/21 06:48 C-Reactive Protein 96.5 mg/L (0.0-4.9) H 12/07/21 19:08 NT-Pro-B Natriuret Pep > 59969 pg/mL (0-450) H 12/11/21 00:30 Total Protein 6.0 g/dL (6.6-8.7) L 12/12/21 04:03 Albumin 2.4 g/dL (3.5-5.2) L 12/12/21 04:03 Globulin 3.6 g/dL (1.3-4.6) 12/12/21 04:03 Procalcitonin 0.35 ng/mL (0-0.5) 12/07/21 19:08 TSH 1.58 uIU/mL (0.27-4.20) 12/08/21 04:16 Prolactin 26.25 ng/mL (4.0-15.2) H 12/11/21 05:05 Urine Color Dark yellow (Yellow) 12/11/21 10:49 Urine Appearance Clear (CLEAR) 12/11/21 10:49 Urine pH 5 (5-7) 12/11/21 10:49 Ur Specific Rescue 1.020 (1.005-1.030) 12/11/21 10:49 Urine Protein 1+ (Negative) H 12/11/21 10:49 Urine Glucose (UA) Norm (Normal) 12/11/21 10:49 Urine Ketones 1+ (Negative) H 12/11/21 10:49 Urine Blood 3+ (Negative) H 12/11/21 10:49 Urine Nitrate Negative (Negative) 12/11/21 10:49 Urine Bilirubin Neg (Negative) 12/11/21 10:49 Urine Urobilinogen Norm mg/dL (Negative) 12/11/21 10:49 Ur Leukocyte Esterase Trace (Negative) H 12/11/21 10:49 Urine RBC 15-25 /hpf (0-2) H 12/11/21 10:49 Urine WBC 0-4 /hpf (0-5) H 12/11/21 10:49 Ur Squamous Epith Cells None /hpf (0-5) 12/11/21 10:49 Ur Transition Epith Cell None /hpf 12/07/21 22:00 Ur Renal Epithelial Cell 0-4 /hpf 12/07/21 22:00 Amorphous Sediment Not Reportable 12/11/21 10:49 Urine Bacteria 1+ /hpf (NONE) H 12/11/21 10:49 Hyaline Casts 5-10 /lpf H 12/07/21 22:00 Fine Granular Casts 0-4 /lpf H 12/07/21 22:00 Urine Mucus 1+ /hpf 12/11/21 10:49 Hepatitis A IgM Ab Non-reactive (Nonreactive) 12/10/21 09:00 Hep Bs Antigen Non-reactive (Nonreactive) 12/10/21 09:00 Hep Bs Antibody < 3.5 (11.5-1000) L 12/10/21 09:00 Hep B Core Total Ab Non-reactive (Nonreactive) 12/10/21 09:00 Hepatitis C Antibody Non-reactive (Nonreactive) 12/10/21 09:00 Vitals Last Vital Signs Temp 98.1 F 12/12/21 07:45 Pulse 119 H 12/12/21 08:41 Resp 18 12/12/21 08:34 BP 103/59 12/12/21 07:45 Pulse Ox 94 12/12/21 08:34 O2 Del Method 12/12/21 08:34 O2 Flow Rate 2 12/12/21 08:34 Discharge Plan Discharge Patient Disposition: Xfer SNF Condition: Critical Prescriptions: New morphine concentrate 100 mg/5 mL (20 mg/mL) solution 5 mg PO Q2H PRN (Reason: dyspnea) Qty: 15 0RF Continued albuterol sulfate [Ventolin HFA] 90 mcg/actuation HFA aerosol inhaler 1 inh inhalation QID PRN (Reason: shortness of breath or wheezing) Qty: 8.5 3RF Artificial Tears (cmc) 1 % Drops 1 drp ophthalmic (eye) BID Rx Instructions: each eye Discontinued pantoprazole 40 mg tablet,delayed release (DR/EC) 40 mg PO BID saw palmetto 450 mg capsule 450 mg PO BID Rx Instructions: give with food (meal/snack) Eliquis 5 mg tablet 2.5 mg PO BID metoprolol tartrate 50 mg tablet 50 mg PO BID Qty: 180 3RF multivitamin Tablet 1 tab PO DAILY atorvastatin 40 mg tablet 40 mg PO BEDTIME magnesium 250 mg Tablet 250 mg PO DAILY nitroglycerin 0.4 mg tablet, sublingual 0.4 mg sublingual Q5M PRN (Reason: chest pains) Rx Instructions: max 3 tabs per episode gabapentin 100 mg Capsule 100 mg PO BEDTIME polyethylene glycol 3350 [Miralax] 17 gram Powder In Packet 17 g PO QAM vitamin B complex Tablet 1 tab PO DAILY isosorbide mononitrate 60 mg tablet extended release 24 hr 60 mg PO DAILY Qty: 30 0RF benzonatate 100 mg Capsule 200 mg PO TID PRN (Reason: Cough) Qty: 30 0RF clopidogrel 75 mg tablet 75 mg PO QAM Discharge Orders: Discharge Order (Routine); Ordered 12/12/21 Ordered By: Semaj Malik Referrals: [facility] [Outside] [facility] [Outside] Nikita Mosher MD [Primary Care Provider] - Patient Instructions: Opioid Safety Discharge Attestations Time Spent in Discharge Care*: less than 30 min Status at Discharge: Cognitive status at discharge: mildly impaired cognition , Behavioral status at discharge: cooperative , Quality Metrics Clinical Quality Measures [ No reported AMI, CVA or VTE this stay] Coding Level of Care Code Acute Chg FW DC note Diagnoses Afib I48.91 Acute heart failure I50.9 Mitral valve regurgitation I34.0 Sepsis A41.9 Acute renal failure N17.9 Shock liver K72.00 Pneumonia J18.9 Acute on chronic renal insufficiency N28.9; N18.9 Ground glass opacity present on imaging of lung R91.8 Sleep apnea G47.33 Sleep apnea type: obstructive
--- NOTE | 2021-12-12 11:39 | PC.OT ---
PER NURSING: PATIENT IS NOW COMFORT CARE; HOSPICE. D/C SKILLED OT
[2021-12-12 11:46] LABS: SARS Covid-2 Antigen Negative (Negative)
== END 2021-12-12 13:25 | disposition hospice, home (50) | DRG 871 ==
LOC: ER 19:51 → MEDSURG 22:14
PROVIDERS: Family Medicine; Admitting Provider Family Medicine; Emergency Provider Student in an Organized Health Care Education/Training Program; PCP Family Medicine; Visit Provider Internal Medicine
DX: A41.9 Sepsis, unspecified organism (principal); D65 Disseminated intravascular coagulation [defibrination syndrome]; J18.9 Pneumonia, unspecified organism; G93.41 Metabolic encephalopathy; J96.00 Acute respiratory failure, unspecified whether with hypoxia or hypercapnia; I50.31 Acute diastolic (congestive) heart failure; K72.00 Acute and subacute hepatic failure without coma; N17.9 Acute kidney failure, unspecified; R65.20 Severe sepsis without septic shock; I25.10 Atherosclerotic heart disease of native coronary artery without angina pectoris; Z95.5 Presence of coronary angioplasty implant and graft; G47.33 Obstructive sleep apnea (adult) (pediatric); Z99.89 Dependence on other enabling machines and devices; I71.4 Abdominal aortic aneurysm, without rupture; I48.91 Unspecified atrial fibrillation; Z86.16 Personal history of COVID-19; K21.9 Gastro-esophageal reflux disease without esophagitis; E78.5 Hyperlipidemia, unspecified; Z86.73 Personal history of transient ischemic attack (TIA), and cerebral infarction without residual deficits; I25.5 Ischemic cardiomyopathy; I25.2 Old myocardial infarction; G62.9 Polyneuropathy, unspecified; Z87.01 Personal history of pneumonia (recurrent); M32.9 Systemic lupus erythematosus, unspecified; Z87.891 Personal history of nicotine dependence; K52.9 Noninfective gastroenteritis and colitis, unspecified; E86.0 Dehydration; W19.XXXA Unspecified fall, initial encounter; Z66 Do not resuscitate; I34.0 Nonrheumatic mitral (valve) insufficiency
CPT/HCPCS: 36415; 36600; 51702; 70450; 71045; 71250; 74176; 76705; 78227; 80048; 80053; 81001; 82803; 83605; 83615; 83735; 83880; 84100; 84145; 84146; 84443; 84484; 85025; 85362; 85378; 85384; 85610; 85730; 86140; 86705; 86706; 86709; 86803; 87040; 87070; 87086; 87205; 87340; 87426; 87641; 92523; 92610; 93005; 94640; 96365; 96372; 97110; 97116; 97161; 97165; 97530; 99285; A9537; J0692; J1630; J2543; J3370; J3490; J7030; J7040; J7050; J7611; J7626; J9352